=== PATIENT | female | born 1965 | race Caucasian/White ===

== ENCOUNTER 2020-01-08 17:01 | Inpatient (IN) | payer MEDICAID, SELFPAY ==
[2020-01-08] VITALS (22 sets, daily range): BP systolic 140–258; BP diastolic 76–132; PULSE 59–109; RESP 14–20; TEMP 36.6–36.8; O2SAT 91–98; BMI 22.3; BMI 28.0
--- NOTE | 2020-01-08 17:21 | ECG_ITS ---
APPROVED REPORT Exam: Resting ECG HR:105 bpm ECG Measurements Heart Rate 105 AXES AZ 166 P 67 QRSd 92 QRS -22 QT 368 T 121 QTc 486 <Conclusion> Sinus tachycardia Left atrial abnormality. Poor R wave progression, previously noted Abnormal ECG Electronically signed by : Duke Montez, 01/13/2020 17:14:00
--- NOTE | 2020-01-08 17:38 | XR_ITS ---
PROCEDURE: XR CHEST PORTABLE CLINICAL HISTORY: chest pain COMPARISON: XR CHEST 2V from 06/02/2019 XR CHEST PORTABLE from 07/09/2019 FINDINGS: There is cardiomegaly with mild pulmonary venous congestion consistent with mild CHF. There is a stable calcified nodule in the right upper lobe. In addition there is a nodular opacity in the right upper lobe laterally overlying the 4th rib nonspecific but stable since 06/02/2019. No acute bony abnormalities. IMPRESSION: Mild CHF. No change right upper lobe nodule Dictated by: Keenan Peterson MD 01/08/2020 22:38 Electronically signed by Keenan Peterson MD in [place] 01/08/2020 22:38
[2020-01-08 17:45] LABS: Basophils # 0.1 K/mm3 (0-0.2); Basophils % 0.6 % (0.1-2.0); Eosinophils # 0.1 K/mm3 (0.0-0.4); Eosinophils % 1.7 % (0.1-12.0); Hematocrit 38.2 % (37.0-47.0); Hemoglobin 12.4 g/dL (12.2-16.2); Lymphocytes # 1.2 K/mm3 (0.7-4.5); Lymphocytes % 15.7 % (10-50); Mean Corpuscular HGB Conc 32.5 g/dL (31.8-35.4); Mean Corpuscular Hemoglobin 27.6 pg (27.0-31.2); Mean Corpuscular Volume 84.9 fl (81-99); Mean Platelet Volume 8.2 fl (7.4-10.4); Monocytes # 0.4 K/mm3 (0.1-1.0); Monocytes % 5.6 % (1.7-9.3); Neutrophils # 5.9 K/mm3 (1.8-7.8); Neutrophils % 76.4 % (37.0-80.0); Platelet Count 238 K/mm3 (142-424); Red Cell Distribution Width 18.3 % (11.5-17.5); White Blood Count 7.7 K/mm3 (4.8-10.8)
[2020-01-08 17:47] LABS: Chloride 110 mmol/L (98-107); Potassium 3.8 mmoL/L (3.5-5.1); Sodium 138 mmol/L (136-145)
[2020-01-08 17:50] LABS: Albumin Level 3.8 g/dl (3.5-5.0); Alkaline Phosphatase 156 U/L (38-126); Anion Gap 11.8 mEq/L (5-15); Bilirubin,Direct 0.6 mg/dl (0.0-0.4); Bilirubin,Indirect 0.5 mg/dL (0.0-0.9); Bilirubin,Total 1.1 mg/dl (0.2-1.3); Bilirubin,Unconjugated 0.5 mg/dL (0.0-1.1); Blood Urea Nitrogen 41 mg/dl (7-17); Carbon Dioxide 20 mmol/L (22.0-30.0); Creatinine Clearance Estimated 23 mL/min (50-200); Estimated Glomerular Filt Rate 19 ml/min (>60); GFR (African American) 23 ML/MIN (>60); Glucose 130 mg/dl (74-100); Total Protein,Serum 7.7 g/dl (6.3-8.2)
[2020-01-08 17:51] LABS: Alanine Aminotransferase 32 U/L (12-78); Aspartate Amino Transferase 36 U/L (14-36)
--- NOTE | 2020-01-08 17:55 | PC.NURSE ---
notified ER of BP readings
[2020-01-08 18:02] LABS: Troponin I 0.07 ng/ml (0.00-0.034)
--- NOTE | 2020-01-08 19:12 | PC.NURSE ---
shift change report given to phyllis mijares and andrern
--- NOTE | 2020-01-08 19:15 | PC.NURSE ---
Nitro gtt increased from 5mcg/min to 10 mcg/min
--- NOTE | 2020-01-08 19:32 | PC.NURSE ---
nitro drip increased from 10mcg/min to 20 mcg/min
--- NOTE | 2020-01-08 19:49 | HMH.EDGENADL ---
ED Disposition Clinical Impression: Hypertensive urgency, malignant Disposition: Admitted as Observation Condition on Discharge: Good Referrals: Provider,Referral, [Primary Care Provider] - - Critical Care Critical Care Time: No Attestation: On 01/08/20, the high probability of a clinically significant, sudden or life threatening deterioration of the following system(s) required my full and direct attention, intervention and personal management. The time I documented below is in addition to time spent performing reported procedures but includes the following listed in this critical care notation. Medical Decision Making - Medical Records Medical records reviewed: Yes: I reviewed the patient's medical records. - Norris Inquiry Pt receiving controlled substance: No Vital Signs: 01/08/20 17:03 01/08/20 17:30 01/08/20 17:33 Temperature 98.0 F Temperature Source Oral Pulse Rate [Right Radial] 109 H 98 H 95 H Respiratory Rate 20 20 20 Blood Pressure [Left Arm] 231/131 H 258/132 H 219/131 H Blood Pressure Mean [Left Arm] 164 174 160 Blood Pressure Source [Left Arm] Automatic Cuff Manual Cuff/ Auscultation Blood Pressure Position [Left Arm] Sitting Sitting Sitting 02 Sat by Pulse Oximetry 91 L 96 Oxygen Delivery Method Room Air Room Air 01/08/20 17:35 01/08/20 17:43 01/08/20 17:50 Temperature Temperature Source Pulse Rate [Right Radial] 94 H 93 H 93 H Respiratory Rate 20 20 20 Blood Pressure [Left Arm] 229/126 H 222/119 H 219/115 H Blood Pressure Mean [Left Arm] 160 153 149 Blood Pressure Source [Left Arm] Automatic Cuff Automatic Cuff Blood Pressure Position [Left Arm] Sitting Sitting Sitting 02 Sat by Pulse Oximetry 98 98 98 Oxygen Delivery Method Room Air Room Air Room Air 01/08/20 17:53 01/08/20 18:10 01/08/20 18:14 Temperature Temperature Source Pulse Rate [Right Radial] 95 H 86 84 Respiratory Rate 20 20 20 Blood Pressure [Left Arm] 230/105 H 199/102 H 200/100 H Blood Pressure Mean [Left Arm] 146 134 133 Blood Pressure Source [Left Arm] Manual Cuff/ Auscultation Automatic Cuff Manual Cuff/ Auscultation Blood Pressure Position [Left Arm] Sitting Sitting Sitting 02 Sat by Pulse Oximetry 97 96 97 Oxygen Delivery Method Room Air Room Air 01/08/20 18:52 01/08/20 19:04 01/08/20 19:48 Temperature Temperature Source Pulse Rate [Right Radial] 77 78 81 Respiratory Rate 20 20 Blood Pressure [Left Arm] 204/110 H 209/112 H 219/116 H Blood Pressure Mean [Left Arm] 141 144 150 Blood Pressure Source [Left Arm] Automatic Cuff Automatic Cuff Blood Pressure Position [Left Arm] Sitting Sitting Supine 02 Sat by Pulse Oximetry 95 96 96 Oxygen Delivery Method Room Air Room Air - Lab Data Lab results reviewed: Yes: I reviewed the patient's lab results. Lab Results 01/08/20 17:25: WBC 7.7, RBC 4.50, Hgb 12.4, Hct 38.2, MCV 84.9, MCH 27.6, MCHC 32.5, RDW 18.3 H, Plt Count 238, MPV 8.2, Neut % (Auto) 76.4, Lymph % (Auto) 15.7, [place] % (Auto) 5.6, Eos % (Auto) 1.7, Baso % (Auto) 0.6, Neut # (Auto) 5.9, Lymph # (Auto) 1.2, [place] # (Auto) 0.4, Eos # (Auto) 0.1, Baso # (Auto) 0.1 01/08/20 17:25: Sodium 138, Potassium 3.8, Chloride 110 H, Carbon Dioxide 20 L, Anion Gap 11.8, BUN 41 H, Creatinine 2.60 H, Estimated Creat Clear 23, Estimated GFR 19 L*, Est GFR ( Amer) 23 L, Glucose 130 H, Calcium 9.0, Total Bilirubin 1.1, Direct Bilirubin 0.6 H, Conjugated Bilirubin 0.0, Indirect Bilirubin 0.5, Unconjugated Bilirubin 0.5, AST 36, ALT 32, Alkaline Phosphatase 156 H, Troponin I 0.07 H, Total Protein 7.7, Albumin 3.8 Result diagrams: 01/08/20 17:25 01/08/20 17:25 Orders (Tests/Meds): ED MEDICATIONS Generic Name Dose Route Start Last Admin Trade Name Freq PRN Reason Stop Dose Admin Nitroglycerin/Dextrose 250 mls @ 1.5 mls/hr 01/08/20 19:00 01/08/20 18:56 Nitroglycerin 50mg/250ml D5w IV 02/07/20 18:59 5 mcg/min .Q24H KATHY 1.5 mls/hr Administration Prot
--- NOTE | 2020-01-08 19:49 | PC.NURSE ---
Nitro drip increased to 25 mcg/min
--- NOTE | 2020-01-08 20:18 | PC.NURSE ---
Nitro gtt increased to 30 mcg/min
--- NOTE | 2020-01-08 20:36 | PC.NURSE ---
report called to OLVIN Huizar
--- NOTE | 2020-01-08 20:51 | PC.NURSE ---
patient to floor via stretcher.
[2020-01-08 21:31] LABS: Troponin I 0.06 ng/ml (0.00-0.034)
[2020-01-08 23:46] LABS: Troponin I 0.05 ng/ml (0.00-0.034)
[2020-01-09] VITALS (25 sets, daily range): BP systolic 120–186; BP diastolic 69–103; PULSE 50–81; RESP 16–20; TEMP 36.4–36.7; O2SAT 90–95; BMI 28.4
--- NOTE | 2020-01-09 02:18 | PC.NURSE ---
Medication Reconciliation not done. Pt does not know names of medications that she is on. No external medication history available.
--- NOTE | 2020-01-09 03:19 | PC.NURSE ---
Pt arrived to floor on Nitro Gtt infusing @ 35 mcg/min. New IV placed in (R) hand #20 for additional medications and due to pt currently in Stepdown. She c/o headache upon arrival. notified. New orders: Tylenol 650 mg PO Q6 prn. She has slept well this shift. Woke this AM c/o headache. Tylenol admin. She is currently NSR on telemetry. VSS at this time. Nitro gtt titrated per protocol and are as follows: Nitro GTT 2051 - 35 mcg/min 2117 - 40 mcg/min 2145 - 30 mcg/min 2240 - 20 mcg/min 2345 - 15 mcg/min 0030 - 10 mcg/min 0105 - 5 mcg/min 0245 - 10 mcg/min 0305 - 20 mcg/min
--- NOTE | 2020-01-09 04:03 | PC.NURSE ---
Pt was assisted per staff to BR. During ambulation, pt noted to become exerted and will need to wear NC during ambulation at this time. Pt remains on 2L O2 NC. RA 84% after ambulation.
[2020-01-09 05:46] LABS: Basophils # 0.1 K/mm3 (0-0.2); Eosinophils # 0.1 K/mm3 (0.0-0.4); Eosinophils % 1.9 % (0.1-12.0); Hematocrit 34.9 % (37.0-47.0); Hemoglobin 11.3 g/dL (12.2-16.2); Lymphocytes # 0.8 K/mm3 (0.7-4.5); Lymphocytes % 12.8 % (10-50); Mean Corpuscular HGB Conc 32.4 g/dL (31.8-35.4); Mean Corpuscular Hemoglobin 27.8 pg (27.0-31.2); Mean Corpuscular Volume 85.7 fl (81-99); Mean Platelet Volume 8.2 fl (7.4-10.4); Monocytes # 0.5 K/mm3 (0.1-1.0); Monocytes % 7.5 % (1.7-9.3); Neutrophils % 76.7 % (37.0-80.0); Platelet Count 228 K/mm3 (142-424); Red Blood Count 4.07 M/mm3 (4.20-5.40); Red Cell Distribution Width 18.1 % (11.5-17.5); White Blood Count 6.5 K/mm3 (4.8-10.8)
[2020-01-09 05:59] LABS: Alanine Aminotransferase 23 U/L (12-78); Albumin Level 3.1 g/dl (3.5-5.0); Albumin/Globulin Ratio 0.9 (1.1-1.8); Alkaline Phosphatase 136 U/L (38-126); Anion Gap 11.6 mEq/L (5-15); Aspartate Amino Transferase 30 U/L (14-36); Blood Urea Nitrogen 39 mg/dl (7-17); Calcium 9.1 mg/dl (8.4-10.2); Carbon Dioxide 23 mmol/L (22.0-30.0); Chloride 107 mmol/L (98-107); Creatinine Clearance Estimated 30 mL/min (50-200); Estimated Glomerular Filt Rate 19 ml/min (>60); GFR (African American) 23 ML/MIN (>60); Globulin 3.5 g/dL (1.3-3.2); Glucose 132 mg/dl (74-100); Potassium 3.6 mmoL/L (3.5-5.1); Sodium 138 mmol/L (136-145); Total Protein,Serum 6.6 g/dl (6.3-8.2)
--- NOTE | 2020-01-09 08:20 | HMH.HP ---
*Admission Date: 01/08/20 *Chief complaint: Headache with malignant hypertension *History of present illness: 54-year-old white female with no primary care physician-recently moved from [place] to [place], [place] to live with her daughter. She was admitted to [facility] twice over the past couple of months with malignant hypertension and was discharged from there on a regimen of triple blood pressure medication including clonidine 0.3 3 times daily. She is unsure of the other medications. She ran out of her hypertensive medicines a couple of days ago, and has progressively felt worse with headaches, shortness of air and lethargy. Came to the emergency department on the day of admission when she was found have significant blood pressure elevation. Placed on nitro drip, managed in the ER until blood pressure improved and transition to second floor on nitro drip. Patient was also given clonidine in the ER for probable rebound hypertension after abrupt cessation of clonidine. Patient this morning feels much better. Blood pressure is now in the 140-150 range systolic [facility] History I have reviewed the patient's past medical history: Yes Medical History: Reports:: Congestive Heart Failure, Hypertension Denies:: Cancer, Diabetes Mellitus Type 1, Diabetes Mellitus Type 2, MRSA *Have you ever received a pneumonia vaccine?: No *Have you received a flu vaccine this season?: Yes Other Surgeries: Yes: Colonoscopy, Amputation: No - *Social History Smoking Status: Former smoker Tobacco Type: cigarettes # Packs/Day (cigarettes): 1 Alcohol Intake: never *Occupational Status:: unemployed *Travel in the last 8 weeks: None Family Hx:: Hypertension, Kidney Disease Review of Systems - Review of Systems Review of systems:: pertinent systems reviewed and negative unless documented below Meds Home Medications Medication Instructions Recorded Confirmed Type lisinopriL [Lisinopril 10mg Tab] 10 mg PO DAILY 06/02/19 06/02/19 History Allergies Allergy/AdvReac Type Severity Reaction Status Date / Time No Known Allergies Allergy Verified 06/02/19 08:21 Exam Vital signs and Labs for Last 24 Hours: Temp Pulse Resp BP Pulse Ox 97.7 F 55 L 16 151/79 H 90 L 01/09/20 04:00 01/09/20 07:00 01/09/20 07:00 01/09/20 07:00 01/09/20 07:00 Laboratory Results - last 24 hr 01/08/20 17:25: WBC 7.7, RBC 4.50, Hgb 12.4, Hct 38.2, MCV 84.9, MCH 27.6, MCHC 32.5, RDW 18.3 H, Plt Count 238, MPV 8.2, Neut % (Auto) 76.4, Lymph % (Auto) 15.7, [place] % (Auto) 5.6, Eos % (Auto) 1.7, Baso % (Auto) 0.6, Neut # (Auto) 5.9, Lymph # (Auto) 1.2, [place] # (Auto) 0.4, Eos # (Auto) 0.1, Baso # (Auto) 0.1 01/08/20 17:25: Sodium 138, Potassium 3.8, Chloride 110 H, Carbon Dioxide 20 L, Anion Gap 11.8, BUN 41 H, Creatinine 2.60 H, Estimated Creat Clear 23, Estimated GFR 19 L*, Est GFR ( Amer) 23 L, Glucose 130 H, Calcium 9.0, Total Bilirubin 1.1, Direct Bilirubin 0.6 H, Conjugated Bilirubin 0.0, Indirect Bilirubin 0.5, Unconjugated Bilirubin 0.5, AST 36, ALT 32, Alkaline Phosphatase 156 H, Troponin I 0.07 H, Total Protein 7.7, Albumin 3.8 01/08/20 20:46: Troponin I 0.06 H 01/08/20 23:17: Troponin I 0.05 H 01/09/20 05:20: WBC 6.5, RBC 4.07 L, Hgb 11.3 L, Hct 34.9 L, MCV 85.7, MCH 27.8, MCHC 32.4, RDW 18.1 H, Plt Count 228, MPV 8.2, Neut % (Auto) 76.7, Lymph % (Auto) 12.8, [place] % (Auto) 7.5, Eos % (Auto) 1.9, Baso % (Auto) 1.0, Neut # (Auto) 5.0, Lymph # (Auto) 0.8, [place] # (Auto) 0.5, Eos # (Auto) 0.1, Baso # (Auto) 0.1 01/09/20 05:20: Sodium 138, Potassium 3.6, Chloride 107, Carbon Dioxide 23, Anion Gap 11.6, BUN 39 H, Creatinine 2.60 H, Estimated Creat Clear 30, Estimated GFR 19 L*, Est GFR ( Amer) 23 L, Glucose 132 H, Calcium 9.1, Total Bilirubin 1.0, AST 30, ALT 23 D, Alkaline Phosphatase 136 H, Total Protein 6.6, Albumin 3.1 L D, Globulin 3.5 H, Albumin/Globulin Ratio 0.9 L I & O for Last 24 hours: Intake & Output
--- NOTE | 2020-01-09 11:41 | HMH.PHACONS ---
- Pharmacy Consult Date: 01/09/20 Time: 11:41 Referring provider: DR. PRICE Reason for Consult:: MED REC Allergies and ADEs:: Allergies Allergy/AdvReac Type Severity Reaction Status Date / Time No Known Allergies Allergy Verified 06/02/19 08:21 Home Medications:: Home Medications Medication Instructions Recorded Confirmed Type Amlodipine Besylate [Amlodipine 5 mg PO DAILY 01/09/20 01/09/20 History 5mg tab] Losartan Potassium 100 mg PO DAILY 01/09/20 01/09/20 History cloNIDine HCL [cloNIDine 0.2mg 0.2 mg PO TID 01/09/20 01/09/20 History Tablet] Height: 1.63 m Weight: 75.551 kg Laboratory Results:: Laboratory Results - last 24 hr 01/08/20 17:25: WBC 7.7, RBC 4.50, Hgb 12.4, Hct 38.2, MCV 84.9, MCH 27.6, MCHC 32.5, RDW 18.3 H, Plt Count 238, MPV 8.2, Neut % (Auto) 76.4, Lymph % (Auto) 15.7, [place] % (Auto) 5.6, Eos % (Auto) 1.7, Baso % (Auto) 0.6, Neut # (Auto) 5.9, Lymph # (Auto) 1.2, [place] # (Auto) 0.4, Eos # (Auto) 0.1, Baso # (Auto) 0.1 01/08/20 17:25: Sodium 138, Potassium 3.8, Chloride 110 H, Carbon Dioxide 20 L, Anion Gap 11.8, BUN 41 H, Creatinine 2.60 H, Estimated Creat Clear 23, Estimated GFR 19 L*, Est GFR ( Amer) 23 L, Glucose 130 H, Calcium 9.0, Total Bilirubin 1.1, Direct Bilirubin 0.6 H, Conjugated Bilirubin 0.0, Indirect Bilirubin 0.5, Unconjugated Bilirubin 0.5, AST 36, ALT 32, Alkaline Phosphatase 156 H, Troponin I 0.07 H, Total Protein 7.7, Albumin 3.8 01/08/20 20:46: Troponin I 0.06 H 01/08/20 23:17: Troponin I 0.05 H 01/09/20 05:20: WBC 6.5, RBC 4.07 L, Hgb 11.3 L, Hct 34.9 L, MCV 85.7, MCH 27.8, MCHC 32.4, RDW 18.1 H, Plt Count 228, MPV 8.2, Neut % (Auto) 76.7, Lymph % (Auto) 12.8, [place] % (Auto) 7.5, Eos % (Auto) 1.9, Baso % (Auto) 1.0, Neut # (Auto) 5.0, Lymph # (Auto) 0.8, [place] # (Auto) 0.5, Eos # (Auto) 0.1, Baso # (Auto) 0.1 01/09/20 05:20: Sodium 138, Potassium 3.6, Chloride 107, Carbon Dioxide 23, Anion Gap 11.6, BUN 39 H, Creatinine 2.60 H, Estimated Creat Clear 30, Estimated GFR 19 L*, Est GFR ( Amer) 23 L, Glucose 132 H, Calcium 9.1, Total Bilirubin 1.0, AST 30, ALT 23 D, Alkaline Phosphatase 136 H, Total Protein 6.6, Albumin 3.1 L D, Globulin 3.5 H, Albumin/Globulin Ratio 0.9 L Medical History: Reports:: Congestive Heart Failure, Hypertension Denies:: Cancer, Diabetes Mellitus Type 1, Diabetes Mellitus Type 2, MRSA Assessment and Plan (1) Hypertensive urgency, malignant Current visit: Yes Status: Acute Category: Medical Code(s): I16.0 - Hypertensive urgency (2) Acute kidney injury Current visit: No Status: Acute Category: Medical Code(s): N17.9 - Acute kidney failure, unspecified (3) Chronic kidney disease Current visit: No Status: Acute Category: Medical Code(s): N18.9 - Chronic kidney disease, unspecified (4) Congestive heart failure Current visit: No Status: Acute Category: Medical Code(s): I50.9 - Heart failure, unspecified - Assessment and plan all Dx Assessment and Plan for all problems:: CALLED [facility] FOR MED LIST. PATIENT HAD RECEIVED SCRIPTS FOR THE FOLLOW MEDS IN [place] BY NEVER FILLED FROM [facility] IN [place]. ASPIRIN 81 MG DAILY ATORVASTATIN 20 MG-2 TABS AT BEDTIME BUMETADINE 1 MG DAILY X14 DAYS CARVEDILOL 25 MG BID HYDRALAZINE 50 MG TID ISOSORBIDE MONONITRATE 60 MG DAILY
--- NOTE | 2020-01-09 11:46 | P.CONPHA_ITS ---
[facility] Pharmacy VTE Monitoring - Patient Demographics Admission date: 01/09/20 Report Date: 01/09/20 Time: 11:46 Allergies/Adverse Reactions: Patient Allergies No Known Allergies Allergy (Verified 06/02/19 08:21) Height: 1.63 m Weight: 75.551 kg Patient Problems: Current Active Problems Hypertensive urgency, malignant (Acute) - VTE Risk Labs: VTE Related Lab Results Hgb 11.3 g/dL (12.2-16.2) L 01/09/20 05:20 Hct 34.9 % (37.0-47.0) L 01/09/20 05:20 Plt Count 228 K/mm3 (142-424) 01/09/20 05:20 BUN 39 mg/dl (7-17) H 01/09/20 05:20 Creatinine 2.60 mg/dl (0.52-1.04) H 01/09/20 05:20 Estimated Creat Clear 30 mL/min (50-200) 01/09/20 05:20 VTE Risk Level: Low Risk - Prophylaxis Types of VTE Prophylaxis: TEDS Knee High (DREW HOSE ORDER PLACED)
--- NOTE | 2020-01-09 15:02 | PC.NURSE ---
1215- Nitro gtt titrated down to 20mcg BP142/79 1230- Nitro gtt titrated down to 15mcg BP 157/84 1300- Nitro gtt titrated down to 10mcg BP 147/80 1330- Nitro gtt titreated to off BP 135/78
--- NOTE | 2020-01-09 15:47 | PC.NURSE ---
Patient weaned from nitro gtt this shift, pt remains on 2LNC, she does get very soa with exertion, lung sounds reveal scattered wheezes, abd soft and nontender, active bowel sounds in all quads, perrla, alert and oriented x4, vss, will continue to monitor.
--- NOTE | 2020-01-09 21:16 | PC.NURSE ---
Pt c/o soa after ambulating to bathroom this evening. O2 desat upper 80s on 2L NC was noted. She recovered effectively after increasing O2 to 3L temporarily. Pt stated that she has an albuterol inhaler at home. notified. New orders received. Xopenex 0.63 mg IH TID.
[2020-01-10] VITALS (8 sets, daily range): BP systolic 134–160; BP diastolic 77–89; PULSE 50–558; RESP 18–20; TEMP 36.4–36.6; O2SAT 92–96; BMI 28.8
[2020-01-10 06:15] LABS: Anion Gap 13.3 mEq/L (5-15); Blood Urea Nitrogen 47 mg/dl (7-17); Calcium 9.2 mg/dl (8.4-10.2); Carbon Dioxide 25 mmol/L (22.0-30.0); Chloride 104 mmol/L (98-107); Creatinine Clearance Estimated 26 mL/min (50-200); Estimated Glomerular Filt Rate 16 ml/min (>60); GFR (African American) 20 ML/MIN (>60); Glucose 130 mg/dl (74-100); Potassium 4.3 mmoL/L (3.5-5.1); Sodium 138 mmol/L (136-145)
--- NOTE | 2020-01-10 08:22 | HMH.DCSUM ---
General - General Admission date:: 01/08/20 Discharge date: 01/10/20 HPI HPI: 54-year-old white female with no primary care physician-recently moved from [place] to [place], [place] to live with her daughter. She was admitted to [facility] twice over the past couple of months with malignant hypertension and was discharged from there on a regimen of triple blood pressure medication including clonidine 0.3 3 times daily. She is unsure of the other medications. She ran out of her hypertensive medicines a couple of days ago, and has progressively felt worse with headaches, shortness of air and lethargy. Came to the emergency department on the day of admission when she was found have significant blood pressure elevation. Placed on nitro drip, managed in the ER until blood pressure improved and transition to second floor on nitro drip. Patient was also given clonidine in the ER for probable rebound hypertension after abrupt cessation of clonidine. Patient this morning feels much better. Blood pressure is now in the 140-150 range systolic Hospital Course Hospital Course: Patient was admitted and her reported antihypertensive medicines were restarted and over the next 24 hours her blood pressure became much more controlled in a manageable range. She was able to be weaned off her nitro drip after 8 hours in the hospital. Further review of her history reveals that she is been in [place] for about a year, has been hospitalized 2 or 3 times in [place] but because of a variety of circumstances is not able to continue ongoing blood pressure regimen. She has not been able to find a primary physician even though she has [employer] Medicare insurance for some reason. Of note she also has told us throughout the last couple of days that she has COPD and has been on oxygen in the past. She has required oxygen the last 24 hours, especially when she gets up and moves around. She only takes albuterol rescue inhalers at home. Overnight she is done well. Eating well, blood pressure is been very acceptable. This morning she is medically ready for discharge with oxygen, and we will institute a follow-up in our office for this week pending her possibly finding a physician closer to her home. We will send medications to her local pharmacy and also institute home oxygen therapy and re-prescribe her rescue inhaler as well as combination long-acting beta agonist/long-acting muscarinic antagonist inhaler at her pharmacy which is appropriate for her baseline COPD treatment. In regards to patient's murmur, she has been told before she has a murmur and thinks she might of had echocardiograms but does not recall any other work-up or diagnosis. She is never had cardiac surgery. Record request and records are pending. Also, in regards to her chronic kidney disease, creatinine is 3 this morning, up from 2.6 but this is fairly negligible given the creatinine logarithmic scale. Again I do not have records of baseline creatinine. Urine output is normal, patient has no edema or signs of worsening kidney disease and this may be a transient response to better blood pressure control and the angiotensin receptor jamel. She will need labs for close outpatient follow-up and we will do these in our office on Saturday. Objective Vital signs: Temp Pulse Resp BP Pulse Ox 97.9 F 74 18 160/83 H 94 L 01/10/20 08:14 01/10/20 08:20 01/10/20 08:20 01/10/20 08:14 01/10/20 08:20 Narrative: Patient is alert, pleasant, wearing 2 L nasal cannula with O2 saturations in the 96% range however off oxygen she goes down to the 88% range. Lungs have good air movement. Minimal rhonchi but clear with a deep breath. Heart rate regular with 3/6 holosystolic murmur. No carotid radiation. ENT exam clear. Neurologically intact. Abdomen soft, no skin rash. Results Labs on day of discharge: Labs from last 24 hours 01/10/20
== END 2020-01-10 11:24 | disposition home or self-care (01) | DRG 305 ==
LOC: ER 19:53 → 2ND 21:03
PROVIDERS: Admitting Provider Internal Medicine Adolescent Medicine; Emergency Provider Family Medicine; Visit Provider Internal Medicine Adolescent Medicine
DX: I16.0 Hypertensive urgency (principal); N17.9 Acute kidney failure, unspecified; I13.0 Hypertensive heart and chronic kidney disease with heart failure and stage 1 through stage 4 chronic kidney disease, or unspecified chronic kidney disease; N18.9 Chronic kidney disease, unspecified; I50.9 Heart failure, unspecified; Z87.891 Personal history of nicotine dependence; Z79.899 Other long term (current) drug therapy
CPT/HCPCS: 36415; 71045; 80048; 80053; 80076; 84484; 85025; 93005; 94640; 94761; 96365; 96366; 96375; 96376; 99285

== ENCOUNTER → 2020-01-12 16:13 | Outpatient (CLI) | payer MEDICAID, SELFPAY ==
[2020-01-12 17:11] LABS: Hemoglobin A1C 5.4 % (4.0-6.0)
[2020-01-12 18:11] LABS: Chloride 109 mmol/L (98-107); Sodium 140 mmol/L (136-145)
[2020-01-12 18:12] LABS: Potassium 3.7 mmoL/L (3.5-5.1)
[2020-01-12 18:14] LABS: Alanine Aminotransferase 24 U/L (12-78); Albumin Level 3.6 g/dl (3.5-5.0); Albumin/Globulin Ratio 0.9 (1.1-1.8); Alkaline Phosphatase 174 U/L (38-126); Anion Gap 9.7 mEq/L (5-15); Aspartate Amino Transferase 30 U/L (14-36); Blood Urea Nitrogen 27 mg/dl (7-17); Carbon Dioxide 25 mmol/L (22.0-30.0); Estimated Glomerular Filt Rate 21 ml/min (>60); GFR (African American) 25 ML/MIN (>60); Globulin 3.8 g/dL (1.3-3.2); Total Protein,Serum 7.4 g/dl (6.3-8.2)
[2020-01-12 18:15] LABS: Calcium 8.9 mg/dl (8.4-10.2); Glucose 81 mg/dl (74-100)
== END ==
PROVIDERS: Visit Provider Nurse Practitioner Family
DX: N18.4 Chronic kidney disease, stage 4 (severe) (principal); R73.9 Hyperglycemia, unspecified
CPT/HCPCS: 36415; 80053; 83036

== ENCOUNTER 2020-03-20 11:16 | Inpatient (IN) | payer MEDICAID, SELFPAY ==
[2020-03-20] VITALS (46 sets, daily range): BP systolic 118–230; BP diastolic 66–126; PULSE 71–119; RESP 16–28; TEMP 36.6–37.2; O2SAT 80–100; BMI 24.9; BMI 27.1
--- NOTE | 2020-03-20 11:21 | XR_ITS ---
PROCEDURE: XR CHEST PORTABLE Referring Doctor: Carlos Campbell Patient Age:54Y CLINICAL HISTORY: SOA COPD. Dyspnea worse past few days. Nonsmoker COMPARISON: CR XR CHEST 2V from 06/02/2019 CR XR CHEST PORTABLE from 07/09/2019 CR XR CHEST PORTABLE from 01/08/2020 FINDINGS: AP portable upright chest performed today Comparison to 01/08/2020 CXR bibasilar airspace disease now evident with likely small bilateral pleural effusions left greater than right. This a change since December CXR. Or the airspace disease at right base is somewhat linear in there may be an element of atelectasis but I would be suspect of a modest bibasilar infiltrate along with atelectasis with given overall a pattern. Suggestion of slight slight additional vascular engorgement, suspect for mild CHF. Mild cardiomegaly noted but heart size is decreased and less pronounced today than on previous studies. Stable lung nodule at the right upper lobe compatible with again ring alum appeared 11 mm size for the most prominent density here.. Tortuous ectatic aorta with dilated aortic knob measuring up to 5.5 cm on plain film which may reflect developing aneurysmal dilatation aortic knob-however this appears similar to previous CXR studies. No appreciable change Chest wall unremarkable IMPRESSION: Bibasilar airspace disease. Small bilateral pleural effusions. 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
--- NOTE | 2020-03-20 11:24 | HMH.EDGENADL ---
ED Disposition Clinical Impression: Acute exacerbation of chronic obstructive airways disease, Acute respiratory failure with hypoxia, Hypertensive emergency Congestive heart failure Qualifiers: Heart failure type: systolic Heart failure chronicity: acute on chronic Qualified Code(s): I50.23 - Acute on chronic systolic (congestive) heart failure Disposition: Admitted As Inpatient Condition on Discharge: Serious - Critical Care Critical Care Time: Yes Attestation: On , the high probability of a clinically significant, sudden or life threatening deterioration of the following system(s) required my full and direct attention, intervention and personal management. The time I documented below is in addition to time spent performing reported procedures but includes the following listed in this critical care notation. Total Critical Care Time: 40 Vital system(s) involved:: Circulatory Failure, Respiratory Failure My critical care processes included: Assessment & monitoring of V/S, Initial and Re-exams, Data Review/Interpretation, Coordinating Care, Medication Orders and management, Documentation Medical Decision Making - Medical Records Medical records reviewed: Yes: I reviewed the patient's medical records. MR Comment: Reviewed recent admission - [facility] Inquiry Pt receiving controlled substance: No Vital Signs: 03/20/20 11:16 03/20/20 11:46 03/20/20 12:16 Temperature 98 F Temperature Source Oral Pulse Rate [Right] 119 H 110 H 104 H Respiratory Rate 26 H 25 H 22 Blood Pressure [Right Arm] 230/126 H 201/121 H 221/126 H Blood Pressure Mean [Right Arm] 160 147 157 Blood Pressure Source [Right Arm] Blood Pressure Position [Right Arm] 02 Sat by Pulse Oximetry 87 L 91 L 88 L Oxygen Delivery Method Nasal Cannula Nasal Cannula Nasal Cannula Oxygen Flow Rate (LPM) 2 2 2 03/20/20 12:30 03/20/20 12:40 03/20/20 12:53 Temperature Temperature Source Pulse Rate [Right] 106 H 101 H 102 H Respiratory Rate 17 28 H 23 Blood Pressure [Right Arm] 204/119 H 196/110 H 183/107 H Blood Pressure Mean [Right Arm] 147 138 132 Blood Pressure Source [Right Arm] Blood Pressure Position [Right Arm] 02 Sat by Pulse Oximetry 94 L 93 L 93 L Oxygen Delivery Method Nasal Cannula Nasal Cannula Nasal Cannula Oxygen Flow Rate (LPM) 2 2 2 03/20/20 13:00 03/20/20 13:05 03/20/20 13:10 Temperature Temperature Source Pulse Rate [Right] 100 H 104 H 109 H Respiratory Rate 21 17 23 Blood Pressure [Right Arm] 182/107 H 168/97 H 178/98 H Blood Pressure Mean [Right Arm] 132 120 124 Blood Pressure Source [Right Arm] Blood Pressure Position [Right Arm] 02 Sat by Pulse Oximetry 95 92 L 93 L Oxygen Delivery Method Nasal Cannula Nasal Cannula Nasal Cannula Oxygen Flow Rate (LPM) 2 2 03/20/20 13:16 03/20/20 14:13 03/20/20 14:27 Temperature Temperature Source Pulse Rate [Right] 100 H 99 H 95 H Respiratory Rate 21 16 22 Blood Pressure [Right Arm] 177/106 H 173/99 H 177/106 H Blood Pressure Mean [Right Arm] 129 123 129 Blood Pressure Source [Right Arm] Automatic Cuff Blood Pressure Position [Right Arm] Sitting 02 Sat by Pulse Oximetry 94 L 99 94 L Oxygen Delivery Method Nasal Cannula Room Air Oxygen Flow Rate (LPM) 2 03/20/20 14:45 03/20/20 15:00 03/20/20 15:15 Temperature Temperature Source Pulse Rate [Right] 95 H 97 H 97 H Respiratory Rate 23 24 22 Blood Pressure [Right Arm] 181/104 H 182/109 H 178/100 H Blood Pressure Mean [Right Arm] 129 133 126 Blood Pressure Source [Right Arm] Blood Pressure Position [Right Arm] 02 Sat by Pulse Oximetry 94 L 94 L 94 L Oxygen Delivery Method Nasal Cannula Nasal Cannula Nasal Cannula Oxygen Flow Rate (LPM) 2 2 2 03/20/20 15:30 Temperature Temperature Source Pulse Rate [Right] 92 H Respiratory Rate 22 Blood Pressure [Right Arm] 174/97 H Blood Pressure Mean [Right Arm] 122 Blood Pressure Source [Right Arm] Blood Pressure Position [Right Arm]
--- NOTE | 2020-03-20 11:26 | ECG_ITS ---
APPROVED REPORT Exam: Resting ECG HR:124 bpm ECG Measurements Heart Rate 124 AXES UT 184 P 78 QRSd 80 QRS 59 QT 332 T 95 QTc 476 <Conclusion> Sinus tachycardia with premature supraventricular complexes Late r wave progresson, previously noted Abnormal ECG Electronically signed by : Duke Montez, 03/20/2020 17:05:35
[2020-03-20 11:41] LABS: ABG Base Excess -8.2 mmol/L (-2.4-2.3); ABG Oxygen Saturation 92 % (90-100); ABG PCO2 29.8 mmhg (35.0-45.0); ABG PH 7.37 mmol/L (7.35-7.45); ABG PO2 65.4 mmhg (80-100); ABG TCO2 17.9 mmhg (23-27)
[2020-03-20 11:42] LABS: Allen's Test Acceptable; Oxygen Room Air %; Source Right Radial
[2020-03-20 11:50] LABS: Basophils # 0.1 K/mm3 (0-0.2); Basophils % 0.8 % (0.1-2.0); Eosinophils # 0.2 K/mm3 (0.0-0.4); Eosinophils % 1.4 % (0.1-12.0); Hematocrit 33.3 % (37.0-47.0); Hemoglobin 11.5 g/dL (12.2-16.2); Lymphocytes # 1.1 K/mm3 (0.7-4.5); Lymphocytes % 10.8 % (10-50); Mean Corpuscular HGB Conc 34.4 g/dL (31.8-35.4); Mean Corpuscular Hemoglobin 27.1 pg (27.0-31.2); Mean Corpuscular Volume 78.6 fl (81-99); Mean Platelet Volume 6.9 fl (7.4-10.4); Monocytes # 0.4 K/mm3 (0.1-1.0); Monocytes % 3.7 % (1.7-9.3); Neutrophils # 8.5 K/mm3 (1.8-7.8); Neutrophils % 83.3 % (37.0-80.0); Platelet Count 216 K/mm3 (142-424); Red Blood Count 4.24 M/mm3 (4.20-5.40); White Blood Count 10.2 K/mm3 (4.8-10.8)
[2020-03-20 11:51] LABS: Chloride 109 mmol/L (98-107); Potassium 3.5 mmoL/L (3.5-5.1); Sodium 141 mmol/L (136-145)
[2020-03-20 11:54] LABS: Alanine Aminotransferase 21 U/L (12-78); Albumin Level 3.8 g/dl (3.5-5.0); Alkaline Phosphatase 152 U/L (38-126); Anion Gap 14.5 mEq/L (5-15); Aspartate Amino Transferase 31 U/L (14-36); Bilirubin,Total 1.1 mg/dl (0.2-1.3); Blood Urea Nitrogen 40 mg/dl (7-17); Carbon Dioxide 21 mmol/L (22.0-30.0); Creatinine Clearance Estimated 22 mL/min (50-200); Estimated Glomerular Filt Rate 16 ml/min (>60); GFR (African American) 19 ML/MIN (>60); Globulin 3.8 g/dL (1.3-3.2); Total Protein,Serum 7.6 g/dl (6.3-8.2)
[2020-03-20 11:55] LABS: Calcium 9.4 mg/dl (8.4-10.2); Glucose 123 mg/dl (74-100)
[2020-03-20 12:07] LABS: Troponin I 0.08 ng/ml (0.00-0.034)
[2020-03-20 12:24] LABS: NT Pro Brain Natriuretic Pep. 43600 pg/mL (0-125)
[2020-03-20 12:25] LABS: Coronavirus 19 IgG Antibody Negative (Negative); Coronavirus 19 IgM Antibody Negative (Negative)
--- NOTE | 2020-03-20 12:40 | PC.NURSE ---
DRIP INITIATED AT THIS TIME AT 5MC/MIN
--- NOTE | 2020-03-20 12:46 | PC.NURSE ---
DR. Tanner wilder
--- NOTE | 2020-03-20 12:52 | PC.NURSE ---
SPEAKING TO DR FRANCIS
--- NOTE | 2020-03-20 13:04 | PC.NURSE ---
NOTIFIED OF BP, STATED HE WISHED TO KEP HER DRIP ON 5
[2020-03-20 14:44] LABS: Troponin I 0.09 ng/ml (0.00-0.034)
--- NOTE | 2020-03-20 15:54 | PC.NURSE ---
Pt arrived to the floor at this time.
--- NOTE | 2020-03-20 16:30 | PC.NURSE ---
Addendum entered by Cristal Palomino RN 03/20/20 17:08: MCG/MIN NOT MG/HR Original Note: PATIENT ARRIVED TO UNIT FROM ED. PATIENT ON NITROGLYCERIN GTT AT 5MG/HR. INCREASED BLOOD PRESSURE GTT INCREASED TO 10MG/HR PER PROTOCOL. BLOOD PRESSURE CONTINUES TO RISE GTT INCREASED TO 15MG/HR, THEN AGAIN TO 20MG/HR. BP CURRENTLY 194/111. MD FRANCIS AT BEDSIDE AWARE OF BLOOD PRESSURE-PERFORMING ASSESSMENT.
--- NOTE | 2020-03-20 16:45 | PC.NURSE ---
PATIENTS BP 171/92 HR 93 NITROGLYCERIN GTT INCREASED TO 30MCG/MIN PER JASMIN Lynne RN
--- NOTE | 2020-03-20 16:55 | HMH.HP ---
*Admission Date: 03/20/20 *Chief complaint: High blood pressure, shortness of breath *History of present illness: 54-year-old white female with malignant hypertension is admitted from the emergency room. She has been off of her medications for 2 to 3 weeks she states. She has not been able to locate a primary care doctor. She was hospitalized in December at [facility] with a similar presentation. At that time her story was that she had moved from [place] to [facility] to live with her daughter. She apparently had been admitted to the [facility] several times with malignant hypertension. She was discharged from there on regimen of triple blood pressure medicines including clonidine 0.3 mg 3 times a day. Apparently she was also on amlodipine. At that hospitalization in December she was discharged on clonidine and amlodipine, but as stated has been off her medications. In December she was also on a nitroglycerin drip in order to bring her blood pressure under control. Prior ECHO: Conclusion 1. Moderate biatrial enlargement, dilated left ventricle, severely reduced left ventricular systolic function, visually estimated ejection fraction 30%, left ventricle is globally hypokinetic. Diastolic parameters are inconclusive. 2. Enlarged right ventricle with normal contractility. 3. Abnormal aortic valve with severe aortic insufficiency. 4. Abnormal mitral valve with severe mitral regurgitation 5. Abnormal tricuspid valve with severe tricuspid regurgitation, calculated right ventricular systolic pressure is 64 mmHg consistent with moderate elevation in right ventricular systolic pressure. 6. No significant pericardial effusion noted. Inferior vena cava is not well-visualized. [facility] History Medical History: Reports:: Congestive Heart Failure, Hypertension, Renal Insufficiency, Valvular Heart Disease Denies:: Cancer, Diabetes Mellitus Type 1, Diabetes Mellitus Type 2, Migraine (But headaches with her hypertension.), MRSA, Myocardial Infarction *Have you ever received a pneumonia vaccine?: No (She denies though it seems likely she would received at some point) *Have you received a flu vaccine this season?: No Other Medical History: Reports: Arthritis (Hands). Denies: Hypothyroidism Other Surgeries: Yes: Colonoscopy, Amputation: No - *Social History Last grade of school completed: High school graduate Smoking Status: Former smoker Tobacco Type: cigarettes # Packs/Day (cigarettes): 1 Alcohol Intake: never *Occupational Status:: unemployed (Did work at [employer], [place]) Household Members: children (Daughter 28 years old son 25 years old 3 grandchildren.) *Travel in the last 8 weeks: None Family Hx:: Cancer, Diabetes, Hypertension, Kidney Disease Comment: Father of COPD. Her mother is 67 years old. A brother has Crohn's disease. She had 4 sisters and 2 brothers. Review of Systems - Constitutional Reports fatigue, Denies anorexia, Denies body ache(s), Denies chills - Eyes Denies change in vision - ENT Denies throat swelling - *Cardiovascular Reports shortness of breath, Reports fast heart rate, Denies chest pain, Denies leg swelling, Denies fainting - *Respiratory Reports chest congestion, Reports shortness of breath - *Gastrointestinal Denies abdominal pain, Denies change in bowel habits - *Musculoskeletal Reports joint pain (Hands) - *Neurologic Reports headache(s), Denies abnormal walking - Hematologic/Lymphatic Denies easy bleeding - Allergic/Immunologic Denies GI upset with certain foods Meds Home Medications Medication Instructions Recorded Confirmed Type Albuterol Sulfate [Albuterol 8.5 gm IH Q6HP PRN #2 hfa.aer.[email or web address] 01/10/20 03/20/20 Rx Sulfate Hfa] Amlodipine Besylate [Norvasc 10mg 10 mg PO DAILY 03/20/20 03/20/20 History tablet] Irbesartan [Avapro 150mg 150 mg PO DAILY 03/20/20 03/20/20 History tablet] Tiotropium [place] [Spiri
--- NOTE | 2020-03-20 17:09 | PC.NURSE ---
PATIENTS BP 159/100 HR 84 PATIENTS NITROGLYCERIN GTT INCREASED TO 40MCG/MIN PER JASMIN Lynne RN
--- NOTE | 2020-03-20 17:14 | PC.NURSE ---
Spoke with Dr. Hart and he is ok with cardiology consult being in the AM.
--- NOTE | 2020-03-20 18:16 | PC.NURSE ---
PATIENT LYING IN BED SLEEPING. BP 151/85 PATIENT ON 40MCG/MIN NITROGLYCERIN GTT. PATIENT REMAINS ON 3LPM N/C 02 SAT 91%. SAFETY MEASURES ARE IN PLACE. PATIENT DOES NOT APPEAR TO BE IN ANY DISCOMFORT OR DISTRESS AT THIS TIME.
[2020-03-20 18:27] LABS: Troponin I 0.07 ng/ml (0.00-0.034)
--- NOTE | 2020-03-20 18:50 | PC.NURSE ---
BP 165/102 HR 83. NITROGLYCERIN GTT INCREASED TO 50MCG/MIN PER JASMIN Lynne RN.
[2020-03-21] VITALS (21 sets, daily range): BP systolic 130–180; BP diastolic 66–97; PULSE 60–86; RESP 16–24; TEMP 36.6–37; O2SAT 86–99; BMI 27.5; BMI 27.4
--- NOTE | 2020-03-21 | CA_ITS ---
APPROVED REPORT EXAM: Comprehensive 2D, Doppler, and color-flow Echocardiogram Steaming Cabinet Tender: Martita Elizabeth, RT(R) Ht: 5 ft 4 in Wt: 145lbs BSA: 1.71 BP: 178/98 mmHg Indications: malignant HTN, CP, COPD, SOB, ex smoker, murmur, palpitations, CHF, echo 06/02/19 EF 30% 2D Dimensions LVOT 1.47 cm (M/F) 1.5-2.5 M-Mode Dimensions RVDd 2.76 cm (0.9-2.6) LVDd 5.42 cm (3.5-5.7) LVDs 4.77 cm (3.5-5.7) IVSd 1.11 cm (0.6-1.1) PWd 1.43 cm (0.6-1.1) EF (Teich) 25.60% FS 12.00% EDV (Teich) 142.50 mL ESV (Teich) 106.00 mL LV Diastology E/A Ratio 1.96 Aortic Valve LVOT Max 137.00 (70-110 cm/s) LVOT VTI 28.24 cm Mitral Valve MV A Velocity 69.00 (40-130 cm/s) Left Ventricle Left atrium is moderately enlarged, left ventricle is normal size, moderate concentric left ventricular hypertrophy, visually estimated ejection fraction 50% with no regional wall motion abnormality, grade 2 diastolic dysfunction seen with tissue Doppler evidence of raise left atrial pressure. Right Ventricle Right atrium is moderately enlarged, right ventricle is mildly dilated with normal contractility. Aortic Valve Aortic valve is thickened and calcified without significant aortic stenosis, there is severe aortic insufficiency. Mitral Valve Mitral valve has mitral calcification, leaflets are minimally thickened, there is no mitral stenosis, there is mitral regurgitation present which is difficult to quantify this is likely in moderate to severe range. Tricuspid Valve Tricuspid valve leaflets are minimally thickened, there is moderate tricuspid regurgitation, calculated right ventricular systolic pressure is 63 mmHg, inferior vena cava is dilated without significant inspiratory collapse. Pulmonic Valve Pulmonic valve is poorly visualized. Great Vessels Aortic root is normal size. Pericardium Trivial pericardial effusion noted. Conclusion 1. Biatrial enlargement, normal left ventricular size, mild concentric left ventricular hypertrophy, visually estimated ejection fraction 50% with no regional wall motion abnormality, grade 2 diastolic dysfunction seen with tissue Doppler evidence of raise left atrial pressure. 2. Mildly enlarged right ventricle with normal contractility. 3. Thickened and calcified aortic valve without significant aortic stenosis, there is severe aortic insufficiency. 4. Abnormal mitral valve as described above, likely moderate to severe mitral regurgitation. 5. Moderate tricuspid regurgitation, calculated right ventricular systolic pressure 63 mmHg, inferior vena cava is dilated without significant inspiratory collapse. 6. Trivial pericardial effusion noted. Electronically signed by : Ryan Kamara, 03/21/2020 18:12:51
--- NOTE | 2020-03-21 05:23 | PC.NURSE ---
2044 nitro drip decreased to 25 mcg/min 2149 nitro drip turned off since that time pt systolic BP has sustained 130-140's, on 3L NC, sat sustain greater than 90% at rest, drops to high 70's on room air, becomes dyspneic on exertion
--- NOTE | 2020-03-21 06:19 | PC.NURSE ---
Ke DECKER NOTIFIED OF CONSULT.
--- NOTE | 2020-03-21 06:48 | PC.NURSE ---
AM BP reading taken after pt up ambulating to restroom and anxiety related to familly issues, pt calming, BP decreasing
[2020-03-21 06:53] LABS: Chloride 104 mmol/L (98-107); Sodium 136 mmol/L (136-145)
[2020-03-21 06:56] LABS: Blood Urea Nitrogen 54 mg/dl (7-17); Carbon Dioxide 23 mmol/L (22.0-30.0); Creatinine Clearance Estimated 21 mL/min (50-200); Estimated Glomerular Filt Rate 13 ml/min (>60); GFR (African American) 16 ML/MIN (>60)
[2020-03-21 06:57] LABS: Glucose 152 mg/dl (74-100)
--- NOTE | 2020-03-21 08:00 | HMH.PHAVTE ---
[facility] Pharmacy VTE Monitoring - Patient Demographics Admission date: 03/21/20 Report Date: 03/21/20 Time: 08:00 Allergies/Adverse Reactions: Patient Allergies No Known Allergies Allergy (Verified 06/02/19 08:21) Height: 1.63 m Weight: 73.057 kg Patient Problems: Current Active Problems Congestive heart failure (Chronic) Hypertensive emergency (Acute) Acute exacerbation of chronic obstructive airways disease (Acute) Acute respiratory failure with hypoxia (Acute) Malignant hypertension (Acute) Valvular heart disease (Acute) CHF due to valvular disease (Acute) Pleural effusion, left (Acute) - VTE Risk Labs: VTE Related Lab Results Hgb 11.5 g/dL (12.2-16.2) L 03/20/20 11:33 Hct 33.3 % (37.0-47.0) L 03/20/20 11:33 Plt Count 216 K/mm3 (142-424) 03/20/20 11:33 BUN 54 mg/dl (7-17) H D 03/21/20 05:40 Creatinine 3.60 mg/dl (0.52-1.04) H 03/21/20 05:40 Estimated Creat Clear 21 mL/min (50-200) 03/21/20 05:40 Was VTE Risk Assessment Performed: Yes VTE Score: 3 VTE Risk Level: Low Risk Clinical Trial Participant: No - Prophylaxis VTE Prophylaxis Ordered?: Yes Types of VTE Prophylaxis: TEDS Knee High Location of Applied Device: Bilateral Lower Extremeties
--- NOTE | 2020-03-21 08:01 | HMH.PHAINT ---
HOME MEDICAITON RECONCILIATION COMPLETED USING LIST FROM HOME PHARMACY
--- NOTE | 2020-03-21 08:07 | CA_ITS ---
APPROVED REPORT Volunteer Services Assistant: CT Laterality: Bilateral Study Quality: Good Indications: bilateral carotid bruits Risk Factors Hypertension: Hyperlipidemia Doppler Spectral Velocity Analysis ECA (R) 88.30/11.10 cm/s ECA (L) 83.90/8.40 cm/s dICA (R) 67.70/21.20 cm/s dICA (L) 60.30/19.00 cm/s Asha (R) 63.20/15.10 cm/s Asha (L) 69.00/17.50 cm/s pICA (R) 62.60/19.80 cm/s pICA (L) 36.80/10.40 cm/s dCCA (R) 78.80/23.10 cm/s dCCA (L) 60.90/12.90 cm/s pCCA (R) 64.30/14.60 cm/s pCCA (L) 59.30/8.40 cm/s Vert (R) 41.90/9.80 cm/s Vert (L) 33.00/8.40 cm/s ICA/CCA 0.90 ICA/CCA 1.00 Findings Duplex evaluation demonstrates stenosis of the right proximal internal carotid artery in the range of 20-49%, lower end of scale. Duplex evaluation demonstrates stenosis of the left proximal internal carotid artery in the range of 20-49%, lower end of scale. Duplex evaluation demonstrates antegrade flow of the bilateral Vertebral Arteries. Conclusion Duplex evaluation demonstrates stenosis of the right proximal internal carotid artery in the range of 20-49%, lower end of scale. Duplex evaluation demonstrates stenosis of the left proximal internal carotid artery in the range of 20-49%, lower end of scale. Duplex evaluation demonstrates antegrade flow of the bilateral Vertebral Arteries. Electronically signed by : Keenan Peterson MD 03/21/2020 16:33:28
--- NOTE | 2020-03-21 08:09 | HMH.CNCARD ---
History of Present Illness Consult date: 03/21/20 Requesting physician: Lilibeth Hart Consult reason: congestive heart failure Chief complaint: SOA Additional Medical History:: 1. Hypertension, malignant 2. Tobacco use, approximately 33-[id number]-dkup history (1 pack/day for 20 years), discontinued approximately 6 months ago 3. Recurrent nephrolithiasis requiring lithotripsy 4. History of x2 5. Cardiomyopathy, ejection fraction of 30%, 05/2019 A. Recurrent congestive heart failure 6. Severe aortic insufficiency by echocardiogram 05/2019 7. Severe mitral regurgitation by echocardiogram 05/2019 8. Remote history of CVA 9. Chronic kidney disease, stage IV, creatinine 3.1-3.6 with GFR 13-19, 02/2020 History of present illness: 54-year-old white female with malignant hypertension is admitted from the emergency room. She has been off of her medications for 2 to 3 weeks she states. She has not been able to locate a primary care doctor. She was hospitalized in December at [facility] with a similar presentation. At that time her story was that she had moved from [place] to [facility] to live with her daughter. She apparently had been admitted to the [facility] several times with malignant hypertension. She was discharged from there on regimen of triple blood pressure medicines including clonidine 0.3 mg 3 times a day. Apparently she was also on amlodipine. At that hospitalization in December she was discharged on clonidine and amlodipine, but as stated has been off her medications. In December she was also on a nitroglycerin drip in order to bring her blood pressure under control. Prior ECHO from 05/2019: Conclusion 1. Moderate biatrial enlargement, dilated left ventricle, severely reduced left ventricular systolic function, visually estimated ejection fraction 30%, left ventricle is globally hypokinetic. Diastolic parameters are inconclusive. 2. Enlarged right ventricle with normal contractility. 3. Abnormal aortic valve with severe aortic insufficiency. 4. Abnormal mitral valve with severe mitral regurgitation 5. Abnormal tricuspid valve with severe tricuspid regurgitation, calculated right ventricular systolic pressure is 64 mmHg consistent with moderate elevation in right ventricular systolic pressure. 6. No significant pericardial effusion noted. Inferior vena cava is not well-visualized The above per Dr. Hart Patient confirms the above account of being off of medications for 2 to 3 weeks due to insurance issues. She relates increasing shortness of breath over the last several days along with lower extremity edema 1-2 times per week. Patient does not recall ever being told she needed any cardiac surgery. Patient discontinued smoking about 6 months ago. She denies history of diabetes. [facility] History Medical History: Reports:: Congestive Heart Failure, Hypertension, Renal Insufficiency, Valvular Heart Disease Denies:: Cancer, Diabetes Mellitus Type 1, Diabetes Mellitus Type 2, Migraine (But headaches with her hypertension.), MRSA, Myocardial Infarction *Have you ever received a pneumonia vaccine?: No (She denies though it seems likely she would received at some point) *Have you received a flu vaccine this season?: No Other Medical History: Reports: Arthritis (Hands). Denies: Hypothyroidism Other Surgeries: Yes: Colonoscopy, Amputation: No - *Social History Last grade of school completed: High school graduate Smoking Status: Former smoker Tobacco Type: cigarettes # Packs/Day (cigarettes): 1 Alcohol Intake: never *Occupational Status:: unemployed (Did work at [employer]) Household Members: children (Daughter 28 years old son 25 years old 3 grandchildren.) *Travel in the last 8 weeks: None Family Hx:: Cancer, Diabetes, Hypertension, Kidney Disease Meds Home Medications Medication Instructions Recorded Confirmed Type Albuterol Sulfate [Albuterol 8.5
--- NOTE | 2020-03-21 13:23 | HMH.ACPN2 ---
Internal Medicine - PN: Subj *Date: 03/21/20 *Time: 13:23 Interval history: She looks much better this morning! Color is better. She feels better and was able to sleep last night. Exam Vital signs and Labs for Last 24 Hours: Temp Pulse Resp BP Pulse Ox 98.1 F 76 18 157/92 H 99 03/21/20 11:00 03/21/20 11:00 03/21/20 11:00 03/21/20 11:00 03/21/20 11:00 Laboratory Results - last 24 hr 03/20/20 14:15: Troponin I 0.09 H 03/20/20 17:57: Troponin I 0.07 H 03/21/20 05:40: Sodium 136, Potassium 4.0, Chloride 104, Carbon Dioxide 23, Anion Gap 13.0, BUN 54 H D, Creatinine 3.60 H, Estimated Creat Clear 21, Estimated GFR 13 L*, Est GFR ( Amer) 16 L*, Glucose 152 H D, Calcium 9.0 I & O for Last 24 hours: Intake & Output 03/19/20 03/20/20 03/21/20 03/22/20 11:59 11:59 11:59 11:59 Intake Total 1590 / 1590 Output Total 1900 / 1900 Balance -310 / -310 Weight 145 lb 161 lb 1 oz - Constitutional no acute distress - *Routine HEENT Exam Head: Present: normocephalic Eye: Present: PERRL ENT: Present: mucous membranes moist - *Routine Respiratory Exam Present: decreased breath sounds (at bases) - *Routine Cardiovascular Exam Present: RRR, murmur - *Routine Extremities Exam Absent: edema - *Routine Neurological Exam Present: alert, oriented X3 Assessment and Plan (1) Hypertensive urgency, malignant Current visit: No Status: Resolved Category: Medical Code(s): I16.0 - Hypertensive urgency (2) CHF due to valvular disease Current visit: Yes Status: Acute Category: Medical Code(s): I50.9 - Heart failure, unspecified; I38 - Endocarditis, valve unspecified (3) Valvular heart disease Current visit: Yes Status: Acute Category: Medical Code(s): I38 - Endocarditis, valve unspecified (4) Chronic kidney disease Current visit: No Status: Chronic Category: Medical Code(s): N18.9 - Chronic kidney disease, unspecified (5) Noncompliance Current visit: No Status: Acute Category: Medical Code(s): Z91.19 - Patient's noncompliance with other medical treatment and regimen (6) Pleural effusion, left Current visit: Yes Status: Acute Category: Medical Code(s): J90 - Pleural effusion, not elsewhere classified - Assessment and plan all Dx Assessment and Plan for all problems:: Medication changes discussed with Milton (cardiology).
--- NOTE | 2020-03-21 15:08 | PC.NURSE ---
PT IS RESTING IN BED. BP HAS IMPROVED SINCE MORNING MEDICATIONS. O2 SATURATION 91-95 % ON 2 L NC. PT HAS BEEN UP AMBULATING TO THE BATHROOM. EATING AND DRINKING WELL. LUNG SOUNDS DIMINISHED. BOWEL SOUNDS NORMAL. PT STATED HER LAST BOWEL MOVEMENT WAS YESTERDAY. PT WAS OFFERED A SHOWER OR BED BATH THIS SHIFT AND REFUSED. TEDS NOTED TO BLE. WILL CONTINUE TO MONITOR.
--- NOTE | 2020-03-21 19:21 | PC.NURSE ---
report given to latonia
--- NOTE | 2020-03-21 23:37 | PC.NURSE ---
She is A&Ox4. Her continues on 3LPM n/c. Will attempt to wean to 2LPM n/c. Per report, pt's O2 has been titrated between 2 and 3 LPM n/c. She reports that she wears 2LPM n/c when needed at home. She has ambulated to the bathroom independently with steady gait. She denies pain. Denies SOA. She reports an occasional non-productive cough. TEDs are in place.
[2020-03-22] VITALS (40 sets, daily range): BP systolic 133–190; BP diastolic 78–117; PULSE 68–90; RESP 15–20; TEMP 36.4–36.9; O2SAT 92–100; BMI 26.6
[2020-03-22 06:27] LABS: Basophils % 0.1 % (0.1-2.0); Eosinophils % 0.2 % (0.1-12.0); Hematocrit 33.9 % (37.0-47.0); Hemoglobin 11.2 g/dL (12.2-16.2); Lymphocytes # 0.6 K/mm3 (0.7-4.5); Lymphocytes % 3.3 % (10-50); Mean Corpuscular Hemoglobin 27.2 pg (27.0-31.2); Mean Corpuscular Volume 82.5 fl (81-99); Monocytes # 0.3 K/mm3 (0.1-1.0); Monocytes % 1.8 % (1.7-9.3); Neutrophils # 15.6 K/mm3 (1.8-7.8); Neutrophils % 94.6 % (37.0-80.0); Platelet Count 260 K/mm3 (142-424); Red Blood Count 4.11 M/mm3 (4.20-5.40); Red Cell Distribution Width 19.6 % (11.5-17.5); White Blood Count 16.5 K/mm3 (4.8-10.8)
[2020-03-22 06:29] LABS: Chloride 101 mmol/L (98-107); Sodium 137 mmol/L (136-145)
[2020-03-22 06:30] LABS: Potassium 3.7 mmoL/L (3.5-5.1)
[2020-03-22 06:32] LABS: Blood Urea Nitrogen 74 mg/dl (7-17); Creatinine Clearance Estimated 17 mL/min (50-200); Estimated Glomerular Filt Rate 11 ml/min (>60); GFR (African American) 13 ML/MIN (>60); MANUAL DIFFERENTIAL MANUAL DIFFERENTIAL (MANUAL DIFF)
[2020-03-22 06:33] LABS: Anion Gap 13.7 mEq/L (5-15); Calcium 8.7 mg/dl (8.4-10.2); Carbon Dioxide 26 mmol/L (22.0-30.0); Glucose 259 mg/dl (74-100)
[2020-03-22 07:42] LABS: Eosinophils % 1 % (0-3); Lymphocytes % 2 % (10-50); Monocytes % 1 % (2-9); Neutrophils % 96 % (42-76); Total Cells Counted 100
[2020-03-22 07:43] LABS: Hypochromasia 1+; Platelet Estimate Normal
--- NOTE | 2020-03-22 07:57 | PC.NURSE ---
CHRIS LAZO RN IS PROVIDING CARE ON PATIENT WITH MY ASSISTANCE AND SUPERVISION
--- NOTE | 2020-03-22 09:23 | HMH.ACPN2 ---
Internal Medicine - PN: Subj *Date: 03/22/20 *Time: 09:23 Interval history: She feels better and is doing better. Her extensive valvular heart disease remains the basis of the of her problems. That along with her renal dysfunction. Blood pressure remains high. This was discussed with cardiology and we will increase the carvedilol to 25 mg twice daily. We need to arrange follow-up with [facility] regarding her heart disease and her kidney disease. Exam Vital signs and Labs for Last 24 Hours: Temp Pulse Resp BP Pulse Ox 97.6 F 82 20 190/95 H 96 03/22/20 08:00 03/22/20 07:27 03/22/20 07:47 03/22/20 07:27 03/22/20 07:47 Laboratory Results - last 24 hr 03/22/20 05:40: WBC 16.5 H D, RBC 4.11 L, Hgb 11.2 L, Hct 33.9 L, MCV 82.5, MCH 27.2, MCHC 33.0, RDW 19.6 H, Plt Count 260, MPV 8.0, Neut % (Auto) 94.6 H, Lymph % (Auto) 3.3 L, [place] % (Auto) 1.8, Eos % (Auto) 0.2, Baso % (Auto) 0.1, Neut # (Auto) 15.6 H, Lymph # (Auto) 0.6 L, [place] # (Auto) 0.3, Eos # (Auto) 0.0, Baso # (Auto) 0.0, Total Counted 100, Neutrophils % (Manual) 96 H, Lymphocytes % (Manual) 2 L, Monocytes % (Manual) 1 L, Eosinophils % (Manual) 1, Platelet Estimate Normal, Hypochromasia 1+ 03/22/20 05:40: Sodium 137, Potassium 3.7, Chloride 101, Carbon Dioxide 26, Anion Gap 13.7, BUN 74 H D, Creatinine 4.30 H, Estimated Creat Clear 17, Estimated GFR 11 L*, Est GFR ( Amer) 13 L*, Glucose 259 H D, Calcium 8.7 I & O for Last 24 hours: Intake & Output 03/19/20 03/20/20 03/21/20 03/22/20 11:59 11:59 11:59 11:59 Intake Total 1590 / 1590 1690 / 1690 Output Total 1900 / 1900 1250 / 1250 Balance -310 / -310 440 / 440 Weight 145 lb 161 lb 1 oz 156 lb 6 oz Microbiology Reports for the Last 24 Hours: Microbiology 03/20/20 11:33 Blood Blood Culture - Preliminary - Constitutional no acute distress - *Routine HEENT Exam Head: Present: normocephalic Eye: Present: PERRL - *Routine Neck Exam Present: supple. Absent: JVD - *Routine Respiratory Exam Present: CTA bilaterally - *Routine Cardiovascular Exam Present: RRR, murmur - *Routine Abdominal Exam Present: soft. Absent: tenderness - *Routine Extremities Exam Absent: edema Assessment and Plan (1) Hypertensive urgency, malignant Current visit: No Status: Resolved Category: Medical Code(s): I16.0 - Hypertensive urgency (2) CHF due to valvular disease Current visit: Yes Status: Acute Category: Medical Code(s): I50.9 - Heart failure, unspecified; I38 - Endocarditis, valve unspecified (3) Valvular heart disease Current visit: Yes Status: Acute Category: Medical Code(s): I38 - Endocarditis, valve unspecified (4) Chronic kidney disease Current visit: No Status: Chronic Category: Medical Code(s): N18.9 - Chronic kidney disease, unspecified (5) Noncompliance Current visit: No Status: Acute Category: Medical Code(s): Z91.19 - Patient's noncompliance with other medical treatment and regimen (6) Pleural effusion, left Current visit: Yes Status: Acute Category: Medical Code(s): J90 - Pleural effusion, not elsewhere classified - Assessment and plan all Dx Assessment and Plan for all problems:: As above. Increase carvedilol. Disposition will be an issue.
--- NOTE | 2020-03-22 09:25 | PC.NURSE ---
MADE MD AWARE OF PATIENT ELEVATED BP AND CREATNINE. STATED TO LEAVE IN STEPDOWN AT THIS TIME. INCREASED DOSE OF COREG. ALREADY GAVE 12.5MG SO WILL GIVE ANOTHER 12.5MG AT THIS TIME NOW TO EQUAL 25MG
--- NOTE | 2020-03-22 11:46 | HMH.PNCARD ---
Subjective Date: 03/22/20 Time: 11:46 Principal diagnosis: AI, MR severe Interval history: 54 yo WF in bed in NAD. Breathing improved but Still with exertional SOA just going to bathroom. No chest pains. Echo confirms severe AI and MR with LVEF of 50%, grade II diastolic dysfunction. RVSP 63 mm Hg with moderate TR. Cr increased to 4.3 discussed need for transfer for surgical intervention. Exam Vital signs and Labs for Last 24 Hours: Temp Pulse Resp BP Pulse Ox 97.6 F 71 20 180/90 H 95 03/22/20 08:00 03/22/20 11:02 03/22/20 10:00 03/22/20 10:00 03/22/20 11:02 Laboratory Results - last 24 hr 03/22/20 05:40: WBC 16.5 H D, RBC 4.11 L, Hgb 11.2 L, Hct 33.9 L, MCV 82.5, MCH 27.2, MCHC 33.0, RDW 19.6 H, Plt Count 260, MPV 8.0, Neut % (Auto) 94.6 H, Lymph % (Auto) 3.3 L, [place] % (Auto) 1.8, Eos % (Auto) 0.2, Baso % (Auto) 0.1, Neut # (Auto) 15.6 H, Lymph # (Auto) 0.6 L, [place] # (Auto) 0.3, Eos # (Auto) 0.0, Baso # (Auto) 0.0, Total Counted 100, Neutrophils % (Manual) 96 H, Lymphocytes % (Manual) 2 L, Monocytes % (Manual) 1 L, Eosinophils % (Manual) 1, Platelet Estimate Normal, Hypochromasia 1+ 03/22/20 05:40: Sodium 137, Potassium 3.7, Chloride 101, Carbon Dioxide 26, Anion Gap 13.7, BUN 74 H D, Creatinine 4.30 H, Estimated Creat Clear 17, Estimated GFR 11 L*, Est GFR ( Amer) 13 L*, Glucose 259 H D, Calcium 8.7 I & O for Last 24 hours: Intake & Output 03/19/20 03/20/20 03/21/20 03/22/20 11:59 11:59 11:59 11:59 Intake Total 1590 / 1590 1690 / 1690 Output Total 1900 / 1900 1250 / 1250 Balance -310 / -310 440 / 440 Weight 145 lb 161 lb 1 oz 156 lb 6 oz Microbiology Reports for the Last 24 Hours: Microbiology 03/20/20 11:33 Blood Blood Culture - Preliminary NO GROWTH AFTER 48 HOURS 03/20/20 11:33 Blood Blood Culture - Preliminary - *Routine Respiratory Exam Present: CTA bilaterally - *Routine Cardiovascular Exam Present: RRR, murmur - *Routine Extremities Exam Absent: cyanosis, clubbing, edema - *Routine Neurological Exam Present: alert, oriented X3 Progress Note: A&P (1) Hypertensive urgency, malignant Status: Resolved Current Visit: No (2) CHF due to valvular disease Status: Acute Current Visit: Yes (3) Valvular heart disease Status: Acute Current Visit: Yes (4) Chronic kidney disease Status: Chronic Current Visit: No (5) Noncompliance Status: Acute Current Visit: No (6) Pleural effusion, left Status: Acute Current Visit: Yes (7) Aortic valve insufficiency Status: Acute Current Visit: Yes (8) Mitral valve insufficiency Status: Acute Current Visit: Yes (9) Grade II diastolic dysfunction Status: Acute Current Visit: Yes Assessment and Plan for All Diagnoses:: Recommend transfer to for further cardiac evaluation and treatment for mixed valve disease and possible dialysis. Start nipride for BP control Stop NTG gtt. Increase coreg
--- NOTE | 2020-03-22 15:55 | PC.NURSE ---
called to let dr. hayden know that stated they would have a bed for the patient shortly
--- NOTE | 2020-03-22 16:39 | PC.NURSE ---
patient systolic has been under 160 so turned drip down at this time to 0.1mcg/kg/min
--- NOTE | 2020-03-22 17:16 | XR_ITS ---
PROCEDURE: XR ELBOW RT MIN 3V CLINICAL INDICATION: fall Posttraumatic pain COMPARISON: No exams were available for comparison FINDINGS: No fracture or dislocation. No lytic or blastic change. There is normal mineralization. The joint spaces are well-preserved. No significant degenerative/arthritic changes. No erosive changes evident. Other findings:None. IMPRESSION: No acute findings. Dictated by: Keenan Peterson MD 03/22/2020 18:54 Keenan Peterson MD in [place] 03/22/2020 18:54
--- NOTE | 2020-03-22 17:16 | XR_ITS ---
PROCEDURE: XR KNEE RT 3V CLINICAL INDICATION: fall Posttraumatic pain COMPARISON: No exams were available for comparison FINDINGS: No fracture or dislocation. No lytic or blastic change. There is normal mineralization. There are mild osteoarthritic changes involving all 3 compartments. This is greater at the medial compartment. Small knee joint effusion is suspected in the suprapatellar region. Other findings:None. IMPRESSION: Mild osteoarthritis with small knee joint effusion Dictated by: Keenan Peterson MD 03/22/2020 18:54 Keenan Peterson MD in [facility] 03/22/2020 18:54
--- NOTE | 2020-03-22 17:16 | PC.NURSE ---
patient assisted to bathroom and instructed to call when finished. patient ambulated self from toilet to bathroom door where she states she got dizzy and fell . patient states she hit her r elbow and knee, both are sore and slight bruising noted. md notified who stated to get an xray of both
--- NOTE | 2020-03-22 18:26 | PC.NURSE ---
attempted to call report twice to [facility]. they stated that the room was still being cleaned so they could not take report.
--- NOTE | 2020-03-22 18:59 | PC.NURSE ---
patient has done okay this shift, some pain in elbow and knee from fall. ice applied per md approval and tylenol given. bp remains elevated titrating drip as required. stable. no needs at this time. independent tturns
--- NOTE | 2020-03-22 19:41 | PC.NURSE ---
report called to eren ferguson at [facility]
--- NOTE | 2020-03-22 20:40 | PC.NURSE ---
patient transported via ambulance service with portable oxygen, cardiac cath technician shows sr. nitroprusside drip infusing at 0.3 mcq/kg/min, blood 169 systolic. awake alert and oriented. denies pain, nausea, vomiting or shortness of air. belongings with patient.
--- NOTE | 2020-03-25 08:45 | HMH.DCSUM ---
General - General Admission date:: 03/20/20 Discharge date: 03/22/20 HPI HPI: 54-year-old white female with malignant hypertension admitted from the emergency room. She stated that she had been off of her medications for 2 to 3 weeks. She had not been able to locate a primary care doctor. She was hospitalized in December at [facility] with a similar presentation. At that time her story was that she had moved from [place] to [facility] to live with her daughter. She apparently had been admitted to the [facility] several times with malignant hypertension. She was discharged from there on regimen of triple blood pressure medicines including clonidine 0.3 mg 3 times a day. Apparently she was also on amlodipine. At that hospitalization in December she was discharged on clonidine and amlodipine, but as stated was off her medications. In December she was also on a nitroglycerin drip in order to bring her blood pressure under control. Prior ECHO: Conclusion 1. Moderate biatrial enlargement, dilated left ventricle, severely reduced left ventricular systolic function, visually estimated ejection fraction 30%, left ventricle is globally hypokinetic. Diastolic parameters are inconclusive. 2. Enlarged right ventricle with normal contractility. 3. Abnormal aortic valve with severe aortic insufficiency. 4. Abnormal mitral valve with severe mitral regurgitation 5. Abnormal tricuspid valve with severe tricuspid regurgitation, calculated right ventricular systolic pressure is 64 mmHg consistent with moderate elevation in right ventricular systolic pressure. 6. No significant pericardial effusion noted. Inferior vena cava is not well-visualized. Hospital Course Hospital Course: Patient was placed on a nitroglycerin drip on admission. Cardiology was consulted the following assessment and plan for problems: Assessment and Plan for all problems:: 1. Malignant hypertension, improved with reinstitution of PO medication along with transient IV nitroglycerin. 2. Recurrent congestive heart failure, continue diuretic therapy. 3. Cardiomyopathy, severe. Continue ARB, lasix and will start coreg. Pt will need Right and left heart cath prior to discharge. 4. Severe aortic insufficiency combined with severe mitral regurgitation in the setting of severe cardiomyopathy. Continue irbesartan and furosemide. Will stop clonidine and metoprolol and use coreg instead. 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 Will obtain echo today and make further recommendations. Patient did begin to feel better . Her extensive valvular heart disease remained the basis of her problems along with her renal dysfunction. Her blood pressure did remain high. Medications were changed by increasing her carvedilol to 25 mg twice daily. Plans were made for follow-up with the [facility] regarding her heart disease and her kidney disease. Nitroglycerin drip was discontinued and she was started on nipride gtt for blood pressure control. On 03/22/2020 patient noted that her breathing had improved but she still had exertional shortness of breath with just going to the bathroom. She denied chest pain. Echo confirmed severe AI and MR with left ventricular ejection fraction of 50% with a grade 2 diastolic dysfunction. RVSP was at 63mmHg with moderate TR. Creatinine was noticed to have increased to 4.3. [facility] agreed for transfer. Thus on 03/22/2020 patient was transferred to the [facility] via ambulance with circle edger to the services of Dr. JOHNSON. Condition at transfer was stable. Medications and further medical care to be determined by the physicians at . Objective Vital signs: Temp Pulse Resp BP Pulse Ox 98.3 F 76 18 179/99 H 95 03/22/20 20:00 03/22/20 20:31 03/22/20 20:00 03/22/20 20:00 03/22/20 20:00 N
== END 2020-03-22 20:40 | disposition home or self-care (01) | DRG 305 ==
LOC: ER 12:05 → 2ND 13:20
PROVIDERS: Admitting Provider Family Medicine; Emergency Provider Emergency Medicine; Visit Provider Family Medicine
DX: I16.0 Hypertensive urgency (principal); J90 Pleural effusion, not elsewhere classified; I38 Endocarditis, valve unspecified; I50.30 Unspecified diastolic (congestive) heart failure; I42.9 Cardiomyopathy, unspecified; N18.9 Chronic kidney disease, unspecified; Z91.120 Patient's intentional underdosing of medication regimen due to financial hardship; I08.0 Rheumatic disorders of both mitral and aortic valves
CPT/HCPCS: 36415; 71045; 73070; 73080; 73560; 73562; 80048; 80053; 82803; 83605; 83880; 84484; 85007; 85025; 86328; 87040; 87077; 93005; 93306; 93880; 94640; 94760; 96367; 96374; 99285; J2405

== ENCOUNTER 2021-01-03 12:47 | Inpatient (IN) | payer MEDICAID, SELFPAY ==
[2021-01-03] VITALS (29 sets, daily range): BP systolic 100–239; BP diastolic 59–161; PULSE 42–102; RESP 14–27; TEMP 34.7–37; O2SAT 89–97; BMI 24.0; BMI 25.1
--- NOTE | 2021-01-03 12:49 | XR_ITS ---
PROCEDURE: XR CHEST PORTABLE CLINICAL HISTORY: short of breath COMPARISON: CR XR CHEST PORTABLE from 07/09/2019 CR XR CHEST PORTABLE from 01/08/2020 CR XR CHEST PORTABLE from 03/20/2020 FINDINGS: There is cardiomegaly with mild pulmonary venous congestion consistent with CHF. Prior CABG increased density in the right lower lobe consistent with effusion. There may be underlying consolidation as well. Right lower lobe opacification has progressed since the previous exam. Small left effusion also noted. Calcified granuloma right upper lobe. IMPRESSION: Mild CHF with bilateral effusions right larger than left and with consolidation in the right lower lobe. Dictated by: Keenan Peterson MD 01/03/2021 13:36 Keenan Peterson MD in [facility] 01/03/2021 13:36
--- NOTE | 2021-01-03 12:50 | ECG_ITS ---
APPROVED REPORT Exam: Resting ECG HR:93 bpm ECG Measurements Heart Rate 93 AXES NV 170 P 79 QRSd 96 QRS 5 QT 384 T 129 QTc 477 Conclusion Normal sinus rhythm Possible Left atrial enlargement Left ventricular hypertrophy with repolarization abnormality Abnormal ECG Electronically signed by : Duke Montez, 01/03/2021 21:59:09
--- NOTE | 2021-01-03 12:54 | HMH.EDGENADL ---
ED Disposition Clinical Impression: Valvular heart disease CHF exacerbation Qualifiers: Heart failure type: unspecified Qualified Code(s): I50.9 - Heart failure, unspecified Pneumonia Qualifiers: Pneumonia type: due to unspecified organism Laterality: right Lung location: lower lobe of lung Qualified Code(s): J18.9 - Pneumonia, unspecified organism Renal failure Qualifiers: Renal failure chronicity: acute on chronic Acute renal failure type: unspecified Chronic kidney disease stage: unspecified stage Qualified Code(s): N17.9 - Acute kidney failure, unspecified; N18.9 - Chronic kidney disease, unspecified Disposition: Admitted As Inpatient Condition on Discharge: Serious Time of Disposition: 19:03 - Critical Care Critical Care Time: No Attestation: On , the high probability of a clinically significant, sudden or life threatening deterioration of the following system(s) required my full and direct attention, intervention and personal management. The time I documented below is in addition to time spent performing reported procedures but includes the following listed in this critical care notation. Medical Decision Making - Medical Records Medical records reviewed: Yes: I reviewed the patient's medical records. - [place] Inquiry Pt receiving controlled substance: No Vital Signs: 01/03/21 12:48 01/03/21 13:01 01/03/21 13:30 Temperature 98.0 F Temperature Source Oral Pulse Rate 94 H 95 H Pulse Rate [Right] 102 H Respiratory Rate 18 27 H 26 H Blood Pressure 238/161 H 239/156 H Blood Pressure [Right Arm] 236/157 H Blood Pressure Mean 186 186 Blood Pressure Mean [Right Arm] 183 Blood Pressure Source Blood Pressure Source [Right Arm] Automatic Cuff Blood Pressure Position Blood Pressure Position [Right Arm] Sitting 02 Sat by Pulse Oximetry 96 96 93 L Oxygen Delivery Method Nasal Cannula Oxygen Flow Rate (LPM) 3 01/03/21 14:01 01/03/21 14:31 01/03/21 14:38 Temperature Temperature Source Pulse Rate 87 51 L 60 Pulse Rate [Right] Respiratory Rate 22 22 18 Blood Pressure 181/108 H 113/70 117/77 Blood Pressure [Right Arm] Blood Pressure Mean 148 86 Blood Pressure Mean [Right Arm] Blood Pressure Source Automatic Cuff Blood Pressure Source [Right Arm] Blood Pressure Position Sitting Blood Pressure Position [Right Arm] 02 Sat by Pulse Oximetry 89 L 89 L 90 L Oxygen Delivery Method Nasal Cannula Oxygen Flow Rate (LPM) 3 01/03/21 15:00 01/03/21 15:31 01/03/21 16:00 Temperature Temperature Source Pulse Rate 51 L 59 L Pulse Rate [Right] Respiratory Rate 21 27 H 20 Blood Pressure 106/67 L 129/73 126/82 Blood Pressure [Right Arm] Blood Pressure Mean 80 81 86 Blood Pressure Mean [Right Arm] Blood Pressure Source Automatic Cuff Blood Pressure Source [Right Arm] Blood Pressure Position Sitting Blood Pressure Position [Right Arm] 02 Sat by Pulse Oximetry 90 L 90 L 95 Oxygen Delivery Method Nasal Cannula Oxygen Flow Rate (LPM) 3 01/03/21 16:15 01/03/21 16:30 01/03/21 16:45 Temperature Temperature Source Pulse Rate 58 L 60 60 Pulse Rate [Right] Respiratory Rate 20 Blood Pressure 133/80 126/75 126/74 Blood Pressure [Right Arm] Blood Pressure Mean 89 89 89 Blood Pressure Mean [Right Arm] Blood Pressure Source Automatic Cuff Blood Pressure Source [Right Arm] Blood Pressure Position Sitting Blood Pressure Position [Right Arm] 02 Sat by Pulse Oximetry 94 L 96 95 Oxygen Delivery Method Nasal Cannula Oxygen Flow Rate (LPM) 3 01/03/21 17:00 01/03/21 17:27 Temperature 98.3 F Temperature Source Oral Pulse Rate 42 L 63 Pulse Rate [Right] Respiratory Rate 24 16 Blood Pressure 126/79 122/75 Blood Pressure [Right Arm] Blood Pressure Mean 91 Blood Pressure Mean [Right Arm] Blood Pressure Source Automatic Cuff Blood Pressure Source [Right Arm] Blood Pressure Position Sitting
[2021-01-03 13:42] LABS: Basophils # 0.1 K/mm3 (0-0.2); Basophils % 0.8 % (0.1-2.0); Eosinophils # 0.1 K/mm3 (0.0-0.4); Eosinophils % 0.8 % (0.1-12.0); Hemoglobin 10.5 g/dL (12.2-16.2); Lymphocytes # 0.8 K/mm3 (0.7-4.5); Lymphocytes % 8.6 % (10-50); Mean Corpuscular HGB Conc 32.9 g/dL (31.8-35.4); Mean Corpuscular Hemoglobin 26.2 pg (27.0-31.2); Mean Corpuscular Volume 79.6 fl (81-99); Mean Platelet Volume 7.6 fl (7.4-10.4); Monocytes # 0.4 K/mm3 (0.1-1.0); Monocytes % 3.9 % (1.7-9.3); Neutrophils # 7.9 K/mm3 (1.8-7.8); Platelet Count 226 K/mm3 (142-424); Red Blood Count 4.02 M/mm3 (4.20-5.40); Red Cell Distribution Width 17.4 % (11.5-17.5); White Blood Count 9.2 K/mm3 (4.8-10.8)
[2021-01-03 13:48] LABS: Chloride 105 mmol/L (98-107); Sodium 141 mmol/L (136-145)
[2021-01-03 13:49] LABS: Potassium 3.4 mmoL/L (3.5-5.1)
[2021-01-03 13:51] LABS: Alanine Aminotransferase 15 U/L (12-78); Albumin Level 4.3 g/dl (3.5-5.0); Albumin/Globulin Ratio 1.2 (1.1-1.8); Alkaline Phosphatase 109 U/L (38-126); Anion Gap 14.4 mEq/L (5-15); Aspartate Amino Transferase 28 U/L (14-36); Bilirubin,Total 0.9 mg/dl (0.2-1.3); Blood Urea Nitrogen 37 mg/dl (7-17); Calcium 9.3 mg/dl (8.4-10.2); Carbon Dioxide 25 mmol/L (22.0-30.0); Creatinine Clearance Estimated 18 mL/min (50-200); Estimated Glomerular Filt Rate 14 ml/min (>60); GFR (African American) 16 ML/MIN (>60); Globulin 3.7 g/dL (1.3-3.2); Glucose 116 mg/dl (74-100)
[2021-01-03 13:53] LABS: MANUAL DIFFERENTIAL MANUAL DIFFERENTIAL (MANUAL DIFF)
[2021-01-03 14:01] LABS: NT Pro Brain Natriuretic Pep. 20000 pg/mL (0-125)
[2021-01-03 14:04] LABS: Troponin I 0.09 ng/ml (0.00-0.034)
--- NOTE | 2021-01-03 14:14 | PC.NURSE ---
notified cardiology office of consult on pt per ER request
[2021-01-03 14:17] LABS: Anisocytosis 1+; Lymphocytes % 5 % (10-50); Monocytes % 1 % (2-9); Neutrophils % 94 % (42-76); Platelet Estimate Normal; Poikilocytosis 1+; RBC Morphology Normal; Total Cells Counted 100
--- NOTE | 2021-01-03 14:48 | PC.NURSE ---
notified CV lab of echo order
[2021-01-03 14:53] LABS: POC Glucose,Bedside 112 (70-110)
--- NOTE | 2021-01-03 15:08 | PC.NURSE ---
CV lab staff at
--- NOTE | 2021-01-03 15:24 | HMH.CNCARD ---
History of Present Illness Consult date: 01/03/21 Requesting physician: Daniela Onofre Consult reason: congestive heart failure Chief complaint: SOA History of present illness: This is a 55-year-old white female presenting to the emergency department with complaints of shortness of breath. During my examination the patient is not really answering any of my questions or following any commands. All of her history I have obtained from her medical records. When she initially came into the emergency department she was complaining of shortness of breath that started a few days ago. When she woke up this morning she did not feel well she was severely short of breath and had tightness in her chest associated with the shortness of breath. Her blood pressure was elevated and she decided to come into the emergency department. On admission her blood pressure was 236/157 and the patient reported that she had been out of her blood pressure medications for the last several days because her pharmacy ran out of her medications a few days ago. Then she was unable to go supervisor opening and picking her medications. The patient did have a VILLAGOMEZ to LAD 1 year ago. She also had a tricuspid repair. Her office notes state that she had a mitral valve replacement but on her preliminary echocardiogram it looks like she had an aortic valve replacement. The review of systems is unable to be completed because the patient is not answering any of my questions at the time of my examination. As mentioned above she did have malignant hypertension when she came into the emergency department. The patient was given her home dose of carvedilol and nifedipine and her blood pressure dropped down to 106 systolic. Now the patient is very somnolent and is getting a CT of her brain. [facility] History I have reviewed the patient's past medical history: Yes Medical History: Reports:: Atherosclerotic Heart Disease, Congestive Heart Failure, Coronary Artery Disease, Hyperlipidemia, Hypertension, Renal Insufficiency, Valvular Heart Disease Denies:: Cancer, Diabetes Mellitus Type 1, Diabetes Mellitus Type 2, Migraine, MRSA, Myocardial Infarction *Have you ever received a pneumonia vaccine?: No *Have you received a flu vaccine this season?: No Other Medical History: Reports: Arthritis. Denies: Hypothyroidism Other Surgeries: Yes: CABG, Cardiac Catheterization, Colonoscopy, , Open Heart Surgery Amputation: No - *Social History Smoking Status: Former smoker Tobacco Type: cigarettes # Packs/Day (cigarettes): 1 Alcohol Intake: never *Occupational Status:: unemployed Household Members: children *Travel in the last 8 weeks: None Family Hx:: Cancer, Diabetes, Hypertension, Kidney Disease Meds Home Medications Medication Instructions Recorded Confirmed Type Albuterol Sulfate [Albuterol 8.5 gm IH Q6HP PRN #2 [email or web address] 01/10/20 07/19/20 Rx Sulfate Hfa] Tiotropium [place] [Spiriva 1 puff IH DAILY 03/20/20 07/19/20 History Respimat] aspirin 81 mg tablet,delayed 81 mg PO DAILY #30 tab 07/19/20 07/19/20 Rx release atorvastatin 80 mg tablet 80 mg PO DAILY #30 tab 07/19/20 07/19/20 Rx carvedilol 25 mg tablet 25 mg PO BID #60 tab 07/19/20 07/19/20 Rx docusate sodium 100 mg tablet 100 mg PO BID 07/19/20 07/19/20 History methocarbamol 500 mg tablet 500 mg PO TID 07/19/20 07/19/20 History nifedipine 60 mg tablet,extended 60 mg PO DAILY #30 tab 07/19/20 07/19/20 Rx release oxycodone 10 mg tablet 10 mg PO TID PRN 07/19/20 07/19/20 History Allergies Allergy/AdvReac Type Severity Reaction Status Date / Time No Known Allergies Allergy Verified 07/19/20 13:57 Exam Vital signs and Labs for Last 24 Hours: Temp Pulse Resp BP Pulse Ox 98.0 F 60 18 117/77 90 L 01/03/21 12:48 01/03/21 14:38 01/03/21 14:38 01/03/21 14:38 01/03/21 14:38 Laboratory Results - last 24 hr 01/03/21 12:55: WBC 9.2, RBC 4.02 L, Hgb 10.5 L, Hct 32.0 L, MCV 79.6 L, MCH 26.2 L, MCHC 32.9, RDW 17.4, Plt Count 22
--- NOTE | 2021-01-03 15:26 | CT_ITS ---
PROCEDURE: CT HEAD/BRAIN WO CON CLINICAL INDICATION: ams Altered mental status, altered level of consciousness, confusion, disorientation COMPARISON: No exams were available for comparison TECHNIQUE: Axial images obtained. All CT scans at the facility use one or more dose reduction, viz: automated exposure control, ma/kV adjustment per patient size (including targeted exams where dose is matched to indication, i.e. head), or iterative reconstruction technique. FINDINGS: No midline shift, mass effect, intracranial hemorrhage, hydrocephalus, or extra-axial fluid collection is evident. There is generalized atrophy with hypoattenuation of the periventricular white matter consistent with microangiopathic changes. The calvarium has an unremarkable appearance. No mastoid effusion. No sinus air-fluid level. IMPRESSION: No acute intracranial finding Dictated by: Keenan Peterson MD 01/03/2021 16:09 Keenan Peterson MD in [facility] 01/03/2021 16:09
--- NOTE | 2021-01-03 15:33 | PC.NURSE ---
per jose elias,telecommunications engineer stop IVF
--- NOTE | 2021-01-03 15:51 | PC.NURSE ---
pt back from CT
--- NOTE | 2021-01-03 16:06 | PC.NURSE ---
Food tray brought for patient.
--- NOTE | 2021-01-03 16:13 | PC.NURSE ---
WILL RHOADES speaking with Dr. Hart who is teacher adventure education for service pts
--- NOTE | 2021-01-03 16:17 | PC.NURSE ---
notified guest house manager of admission
--- NOTE | 2021-01-03 16:20 | PC.NURSE ---
per melinda in CV lab pt must be NPO for renal artery doppler to be done, states pt study will be done tomorrow morning. notified ER and LANA Solorio
[2021-01-03 16:22] LABS: Troponin I 0.09 ng/ml (0.00-0.034)
--- NOTE | 2021-01-03 16:55 | PC.NURSE ---
contacted lab to check on status of covid swab results. Wally in lab states swab is finished running they are soon to be releasing results
--- NOTE | 2021-01-03 16:59 | PC.NURSE ---
Respiratory called about vbs needed
[2021-01-03 17:06] LABS: VBG Base Excess -5.2 mmol/L (-2.4-2.3); VBG HCO3 21.6 mmol/L (23-30); VBG Oxygen Saturation 97.4 % (50-70); VBG PH 7.27 mmol/L (7.31-7.41); VBG PO2 107.1 mmol/L (28-40); VBG Total CO2 23.1 mmol/L (23-27)
[2021-01-03 17:15] LABS: Microscopic, Urine URINE MICROSCOPIC (MICROSCOPIC)
[2021-01-03 17:38] LABS: Lactic Acid 0.5 mmol/L (0.7-2.1)
[2021-01-03 17:41] LABS: Appearance,Urine CLEAR (Clear); Bilirubin,Urine Negative (Negative); Blood, Urine 2+ (Negative); Color,Urine YELLOW (Yellow); Glucose,Urine (UA) Negative (Negative); Ketones,Urine Negative (Negative); Leukocyte Esterase,Urine Negative (Negative); Nitrate,Urine Negative (Negative); Protein,Urine 3+ (Negative); Specific Gravity, Urine 1.025 (1.005-1.030)
[2021-01-03 18:02] LABS: Squamous Epithelial Cell,Urine Occasional #/hpf (0-5)
--- NOTE | 2021-01-03 18:24 | HMH.HP ---
*Admission Date: 01/03/21 <Luanne Cartagena - 01/03/21 19:16> *Chief complaint: Shortness of breath <Luanne Cartagena - 01/03/21 19:16> *History of present illness: At this time nformation is obtained from documentation from the ER and by cardiology. Patient apparently presented to the emergency room with shortness of breath and chest tightness. She was stable on arrival. Blood pressure was noted to be 238/161. She demonstrated a prolonged expiratory phase with her breathing and with wheezes. The concern was for congestive heart failure, hypertensive urgency, and fluid overload. She had an elevated BUN of 37 and creatinine of 3.6 with which was similar to her previous renal function. BNP was elevated at 20,000. Chest x-ray showed bilateral pleural effusions and possible lower lobe infiltrate. White count was 9000. Gentle Hydration was initiated and then she was given 40 of Lasix IV. She was given carvedilol 25 mg, and 60 mg amlodipine. After being seen by cardiology IV fluids were discontinued and she was given a total of 200mg of Lasix IV. She was also started on Rocephin and Zithromax. Past medical history includes: Valvular heart disease with valvular surgery at the [facility] last year, congestive heart failure, hypertension, renal insufficiency.. She has not followed up with . She does not have a primary care physician. Patient was also seen by cardiology in the emergency room with the following assessment and plan: 1. Patient presented to the emergency department with complaints of shortness of breath. She was found to have a BNP of 20,000 and an elevated troponin at 0.09. Her creatinine is also elevated at 3.50. The patient is in acute CHF. We will give her Lasix 160 mg IV x1 dose now. 2. We will get an echocardiogram to evaluate her LV function. The EF is around 40%. 3. Stop carvedilol and nifedipine. 4. Patient has a history of CABG with a VILLAGOMEZ to the LAD. She does have a slight elevation in her troponin. May consider left cardiac catheterization once her renal function has improved. But for now we will hold off on this because of her acute renal failure. 5. The patient came in with a malignantly elevated blood pressure. She was given her home medications and her blood pressure did go down to a normal range. The patient is very noncompliant and has not been taking her medicines. But for now we need to stop her beta-jamel and calcium channel jamel because she is in acute CHF. 6. We will get a renal duplex secondary to her malignantly elevated blood pressure. 7. LDL goal is less than 55. We will get a lipid panel. 8. If the patient becomes hypotensive with Lasix, she will need to be started on a Levophed drip. 9. Stop IV fluids. She is in acute failure needs diuresis. 10. Further recommendations were made pending the patient's response to treatment. Upon arrival to her room on the medical floor patient became less responsive to the point she became obtunded. Body temperature was found to be 95. She was placed on the bear hugger. Heart rate had gradually dropped and actually was in the 40s to 60 range without ectopy. Blood pressure also dropped into the 90s and up to 100. ABGs were shown to have a metabolic acidosis. Respiratory effort became irregular and she had circumoral cyanosis as well as discolored hands and fingernails. O2 sats dropped into the 80s. She was placed on BiPAP with improvement of respiratory effort and her color. She continued to have good peripheral pulses. Repeat EKG showed a possible anterior infarct. Repeat troponin I's were initiated. She did have some urinary output. She had 1 dose of Narcan with no response. She is moved to stepdown for closer monitoring. She did have some movement of her extremities and did change her position at one time. She did not respond to her name but did try to open her eyes. <Luanne Cartagena - 01/03/21 19:16> [facility] History Medical History: Rep
--- NOTE | 2021-01-03 18:41 | ECG_ITS ---
APPROVED REPORT Exam: Resting ECG HR:54 bpm ECG Measurements Heart Rate [address] 154 P 114 QRSd 96 QRS 21 QT 534 T 141 QTc 506 Conclusion Sinus bradycardia with premature atrial complexes Possible Anterior infarct, age undetermined ST & T wave abnormality, consider lateral ischemia Prolonged QT Abnormal ECG Electronically signed by : Duke Montez, 01/07/2021 11:11:57
[2021-01-03 19:10] LABS: Benzodiazepines Screen,Urine Negative ng/ml (<200)
[2021-01-03 19:11] LABS: Amphetamine/Metha Screen,Urine Negative ng/ml (<1000)
[2021-01-03 19:12] LABS: Barbiturates Screen,Urine Negative ng/ml (<200); Cannabinoid Screen,Urine Negative ng/ml (<50)
[2021-01-03 19:13] LABS: Cocaine Screen,Urine Negative ng/ml (<300)
[2021-01-03 19:14] LABS: Methadone Screen,Urine Negative ng/ml (<300); Opiate Screen,Urine Negative ng/ml (<300)
[2021-01-03 19:15] LABS: Phencyclidine Screen,Urine Negative ng/ml (<25)
[2021-01-03 19:37] LABS: Troponin I 0.09 ng/ml (0.00-0.034)
--- NOTE | 2021-01-03 20:15 | PC.NURSE ---
Med rec not completed d/t pt being nonresponsive. Pt only responsive to painful stimuli. Spoke to Ingris, pt's daughter- she is unaware of what her mother takes and when the last time she has taken any of her medications.
--- NOTE | 2021-01-03 20:26 | PC.NURSE ---
Lab notified of incomplete blood culture order. Stated they had already obtained and spoke to dayshift nurse. Order corrected.
--- NOTE | 2021-01-03 22:01 | PC.NURSE ---
Temperature 98.6 Karolina paw turned off.
[2021-01-04] VITALS (21 sets, daily range): BP systolic 119–167; BP diastolic 69–95; PULSE 40–80; RESP 14–25; TEMP 36.5–36.9; O2SAT 95–100; BMI 24.6; BMI 24.5
[2021-01-04 00:04] LABS: Troponin I 0.09 ng/ml (0.00-0.034)
--- NOTE | 2021-01-04 00:18 | PC.NURSE ---
Upon shift change pt was only responsive to painful stimuli. Pupils were pinpoint. She was on a geraldo paw for hypothermia. Narcan administered and there was a slight dilation of her pupils. Another narcan was administered and after several minutes she sat up in bed. She answered questions. Pupils 2 and PERRLA. She sat up and had a drink of water. She has since been sleeping. She awakens to touch but is drowsy. Have been waking her frequently to assess alertness and temperature. She is not answering questing at this time. Oral cavity is dry; oral care provided.
--- NOTE | 2021-01-04 03:00 | PC.NURSE ---
She awakened at this time stating she was hot. Given a drink of water. HOB was elevated per her request.
[2021-01-04 05:54] LABS: Chloride 107 mmol/L (98-107); Potassium 3.8 mmoL/L (3.5-5.1); Sodium 140 mmol/L (136-145)
[2021-01-04 05:56] LABS: Alanine Aminotransferase 12 U/L (12-78); Aspartate Amino Transferase 30 U/L (14-36); Blood Urea Nitrogen 42 mg/dl (7-17); Creatinine Clearance Estimated 20 mL/min (50-200); Estimated Glomerular Filt Rate 13 ml/min (>60); GFR (African American) 15 ML/MIN (>60)
[2021-01-04 05:57] LABS: Albumin Level 3.7 g/dl (3.5-5.0); Albumin/Globulin Ratio 1.1 (1.1-1.8); Alkaline Phosphatase 92 U/L (38-126); Anion Gap 12.8 mEq/L (5-15); Bilirubin,Total 0.8 mg/dl (0.2-1.3); Calcium 8.5 mg/dl (8.4-10.2); Carbon Dioxide 24 mmol/L (22.0-30.0); Globulin 3.3 g/dL (1.3-3.2); Glucose 84 mg/dl (74-100)
[2021-01-04 06:59] LABS: Basophils # 0.1 K/mm3 (0-0.2); Basophils % 0.7 % (0.1-2.0); Eosinophils # 0.1 K/mm3 (0.0-0.4); Eosinophils % 0.8 % (0.1-12.0); Hematocrit 32.2 % (37.0-47.0); Hemoglobin 10.4 g/dL (12.2-16.2); Lymphocytes # 1.3 K/mm3 (0.7-4.5); Lymphocytes % 11.2 % (10-50); Mean Corpuscular HGB Conc 32.1 g/dL (31.8-35.4); Mean Platelet Volume 7.8 fl (7.4-10.4); Monocytes # 0.7 K/mm3 (0.1-1.0); Monocytes % 5.9 % (1.7-9.3); Neutrophils # 9.6 K/mm3 (1.8-7.8); Neutrophils % 81.3 % (37.0-80.0); Platelet Count 226 K/mm3 (142-424); Red Blood Count 3.98 M/mm3 (4.20-5.40); Red Cell Distribution Width 17.3 % (11.5-17.5); White Blood Count 11.8 K/mm3 (4.8-10.8)
--- NOTE | 2021-01-04 07:36 | P.CONPHA_ITS ---
[facility] VTE Monitoring - Patient Demographics Admission date: 01/04/21 Report Date: 01/04/21 Time: 07:36 Allergies/Adverse Reactions: Patient Allergies No Known Allergies Allergy (Verified 07/19/20 13:57) Height: 1.7 m Weight: 71.299 kg Patient Problems: Current Active Problems CHF exacerbation (Acute) Acute CHF (Acute) SOB (shortness of breath) (Acute) Obtunded (Acute) Hypoxia (Acute) Bradycardia (Acute) Hypertension (Acute) Altered mental status (Acute) History of mitral valve replacement (Acute) History of tricuspid valve repair (Chronic) Heart valve replaced (Acute) CAD (coronary artery disease) (Chronic) History of coronary artery bypass graft (Acute) Chronic kidney disease (Chronic) Noncompliance (Acute) Valvular heart disease (Acute) - VTE Risk Labs: VTE Related Lab Results Hgb 10.4 g/dL (12.2-16.2) L 01/04/21 06:27 Hct 32.2 % (37.0-47.0) L 01/04/21 06:27 Plt Count 226 K/mm3 (142-424) 01/04/21 06:27 BUN 42 mg/dl (7-17) H 01/04/21 05:26 Creatinine 3.70 mg/dl (0.52-1.04) H 01/04/21 05:26 Estimated Creat Clear 20 mL/min (50-200) 01/04/21 05:26 Clinical Trial Participant: No - Prophylaxis VTE Prophylaxis Ordered?: Yes Types of VTE Prophylaxis: TEDS Knee High
--- NOTE | 2021-01-04 08:00 | CA_ITS ---
APPROVED REPORT Chlorine Cell Tender: Coreen Brock RVT Study Quality: Adequate, Due to . Indications: malignant htn Risk Factors Hypertension Hyperlipidemia Smoking Renal Artery Doppler Mid (R) 160.4/ cm/sec Distal (R) 38.6/ cm/sec Renal Aorta Ratio (R) 1.79 Segmental A. (R) 59.4/13.6 cm/sec RI: 0.77 Segmental A. Sup (R) 46.7/14.4 cm/sec Segmental A. Mid (R) 59.4/13.6 cm/sec Segmental A. Inf (R) 51.5/11.2 cm/sec Distal (L) 158.8/ cm/sec Renal Aorta Ratio (L) 1.77 Segmental A. (L) 39.9/10.0 cm/sec RI: 0.74 Segmental A. Sup (L) 39.0/10.0 cm/sec Segmental A. Mid (L) 25.7/11.2 cm/sec Renal Measurements Kidney Size (R) 8.1x6.2 cm Cortical Thickness (R) 0.8 cm Kidney Size (L) 9.1x5.3 cm Cortical Thickness (L) 1.0 cm Findings Study suggests no evidence of stenosis in the bilateral renal arteries. Proximal and mid left renal artery is not visualized. Bilateral renal atrophy and decreased cortical thickness seen suggestive of renal disease. Conclusion Study suggests no evidence of stenosis in the bilateral renal arteries. Proximal and mid left renal artery is not visualized. Bilateral renal atrophy and decreased cortical thickness seen suggestive of renal disease. Electronically signed by : Keenan Peterson MD 01/04/2021 17:24:03
--- NOTE | 2021-01-04 08:41 | HMH.ACPN2 ---
Internal Medicine - PN: Subj *Date: 01/04/21 *Time: 08:46 Interval history: Patient had 3 additional doses of Narcan last evening after which she became more alert and actually set up in the bed on her own. Breathing has been very regular with good O2 sats on the BiPAP. She has had some bradycardia but remains in a sinus rhythm. She continues with a Hector catheter. Patient easily aroused. She set up in the bed on her own for auscultation of her lungs. She denies chest pain, shortness of breath, and abdominal pain. She remains on BiPAP. Exam Vital signs and Labs for Last 24 Hours: Temp Pulse Resp BP Pulse Ox 97.7 F 62 20 144/81 H 100 01/04/21 08:00 01/04/21 06:00 01/04/21 02:00 01/04/21 06:00 01/04/21 06:00 Laboratory Results - last 24 hr 01/03/21 12:55: WBC 9.2, RBC 4.02 L, Hgb 10.5 L, Hct 32.0 L, MCV 79.6 L, MCH 26.2 L, MCHC 32.9, RDW 17.4, Plt Count 226, MPV 7.6, Neut % (Auto) 86.0 H, Lymph % (Auto) 8.6 L, [place] % (Auto) 3.9, Eos % (Auto) 0.8, Baso % (Auto) 0.8, Neut # (Auto) 7.9 H, Lymph # (Auto) 0.8, [place] # (Auto) 0.4, Eos # (Auto) 0.1, Baso # (Auto) 0.1, Total Counted 100, Neutrophils % (Manual) 94 H, Lymphocytes % (Manual) 5 L, Monocytes % (Manual) 1 L, Platelet Estimate Normal, RBC Morphology Normal, Poikilocytosis 1+, Anisocytosis 1+ 01/03/21 12:55: Sodium 141, Potassium 3.4 L, Chloride 105, Carbon Dioxide 25, Anion Gap 14.4, BUN 37 H, Creatinine 3.50 H, Estimated Creat Clear 18, Estimated GFR 14 L*, Est GFR ( Amer) 16 L*, Glucose 116 H, Calcium 9.3, Total Bilirubin 0.9, AST 28, ALT 15, Alkaline Phosphatase 109, Troponin I 0.09 H, NT-Pro-B Natriuret Pep 34807 H, Total Protein 8.0, Albumin 4.3, Globulin 3.7 H, Albumin/Globulin Ratio 1.2 01/03/21 14:45: POC Glucose 112 H 01/03/21 15:46: Troponin I 0.09 H 01/03/21 16:45: VBG pH 7.27 L, VBG pCO2 48.0, VBG pO2 107.1 H, VBG HCO3 21.6 L, VBG Total CO2 23.1, VBG O2 Saturation 97.4 H, VBG Base Excess -5.2 L 01/03/21 16:50: Urine Color Yellow, Urine Appearance Clear, Urine pH 6.0, Ur Specific [place] 1.025, Urine Protein 3+, Urine Glucose (UA) Negative, Urine Ketones Negative, Urine Blood 2+, Urine Nitrate Negative, Urine Bilirubin Negative, Urine Urobilinogen 1.0, Ur Leukocyte Esterase Negative, Urine RBC 5-10, Urine WBC None, Ur Squamous Epith Cells Occasional, Urine Bacteria None 01/03/21 16:57: Urine Opiates Screen Negative, Urine Methadone Screen Negative, Ur Barbituates Screen Negative, Ur Phencyclidine Scrn Negative, Ur Amphetamines Screen Negative, U Benzodiazepines Scrn Negative, Urine Cocaine Screen Negative, U Marijuana (THC) Screen Negative 01/03/21 17:13: Lactate 0.5 L 01/03/21 17:13: Procalcitonin 0.050 01/03/21 18:45: Troponin I 0.09 H 01/03/21 22:28: Troponin I 0.09 H 01/04/21 05:26: Sodium 140, Potassium 3.8, Chloride 107, Carbon Dioxide 24, Anion Gap 12.8, BUN 42 H, Creatinine 3.70 H, Estimated Creat Clear 20, Estimated GFR 13 L*, Est GFR ( Amer) 15 L*, Glucose 84 D, Calcium 8.5, Total Bilirubin 0.8, AST 30, ALT 12, Alkaline Phosphatase 92, Total Protein 7.0, Albumin 3.7 D, Globulin 3.3 H, Albumin/Globulin Ratio 1.1 01/04/21 06:27: WBC 11.8 H D, RBC 3.98 L, Hgb 10.4 L, Hct 32.2 L, MCV 81.0, MCH 26.0 L, MCHC 32.1, RDW 17.3, Plt Count 226, MPV 7.8, Neut % (Auto) 81.3 H, Lymph % (Auto) 11.2, [place] % (Auto) 5.9, Eos % (Auto) 0.8, Baso % (Auto) 0.7, Neut # (Auto) 9.6 H, Lymph # (Auto) 1.3, [place] # (Auto) 0.7, Eos # (Auto) 0.1, Baso # (Auto) 0.1 I & O for Last 24 hours: Intake & Output 01/01/21 01/02/21 01/03/21 01/04/21 11:59 11:59 11:59 11:59 Output Total 1200 / 1200 Balance -1200 / -1200 Weight 157 lb 3 oz Microbiology Reports for the Last 24 Hours: Microbiology 01/03/21 13:40 Nasopharyngeal Coronavirus COVID-19 PCR - Final - Constitutional no acute distress - *Routine Respiratory Exam Present: crackles (Left base with decreased breath sounds in the right base) - *Routine Cardiovascular Exam Present: RRR (Monito
[2021-01-04 09:08] LABS: Troponin I 0.09 ng/ml (0.00-0.034)
[2021-01-04 09:21] LABS: Chol/HDL Ratio 4.6 (1-3.5); Cholesterol 194 mg/dl (140-200); HDL Cholesterol 42 mg/dl (40-60); Triglycerides 94 mg/dl (30-150); VLDL Cholesterol 19 mg/dL (0-40)
[2021-01-04 09:31] LABS: Direct LDL Cholesterol 95.07 mg/dL (100-129)
--- NOTE | 2021-01-04 10:23 | HMH.PNCARD ---
Subjective Date: 01/04/21 Time: 10:00 Principal diagnosis: chf Interval history: This is a 55-year-old white female who presented to the emergency department here at [facility] with complaints of shortness of breath. The patient had a blood pressure of 236/157 on admission as well. During my exam yesterday the patient was unable to communicate any history with me and she was not answering any of my questions. The patient was very obtunded and unresponsive to most things. This morning she is awake and alert. She is able to answer all of my questions and follow all of my commands. She states that she is feeling much better today than she was yesterday when she was admitted. She states that she has not had any chest pain or pressure. She has only had shortness of breath. This is much better than it was when she came in yesterday. She still has associated orthopnea with her shortness of breath. She denies any lower extremity edema. She denies any fever, chills, nausea, vomiting, diarrhea. Exam Vital signs and Labs for Last 24 Hours: Temp Pulse Resp BP Pulse Ox 97.7 F 62 20 144/81 H 100 01/04/21 08:00 01/04/21 06:00 01/04/21 02:00 01/04/21 06:00 01/04/21 06:00 Laboratory Results - last 24 hr 01/03/21 12:55: WBC 9.2, RBC 4.02 L, Hgb 10.5 L, Hct 32.0 L, MCV 79.6 L, MCH 26.2 L, MCHC 32.9, RDW 17.4, Plt Count 226, MPV 7.6, Neut % (Auto) 86.0 H, Lymph % (Auto) 8.6 L, [place] % (Auto) 3.9, Eos % (Auto) 0.8, Baso % (Auto) 0.8, Neut # (Auto) 7.9 H, Lymph # (Auto) 0.8, [place] # (Auto) 0.4, Eos # (Auto) 0.1, Baso # (Auto) 0.1, Total Counted 100, Neutrophils % (Manual) 94 H, Lymphocytes % (Manual) 5 L, Monocytes % (Manual) 1 L, Platelet Estimate Normal, RBC Morphology Normal, Poikilocytosis 1+, Anisocytosis 1+ 01/03/21 12:55: Sodium 141, Potassium 3.4 L, Chloride 105, Carbon Dioxide 25, Anion Gap 14.4, BUN 37 H, Creatinine 3.50 H, Estimated Creat Clear 18, Estimated GFR 14 L*, Est GFR ( Amer) 16 L*, Glucose 116 H, Calcium 9.3, Total Bilirubin 0.9, AST 28, ALT 15, Alkaline Phosphatase 109, Troponin I 0.09 H, NT-Pro-B Natriuret Pep 45275 H, Total Protein 8.0, Albumin 4.3, Globulin 3.7 H, Albumin/Globulin Ratio 1.2 01/03/21 14:45: POC Glucose 112 H 01/03/21 15:46: Troponin I 0.09 H 01/03/21 16:45: VBG pH 7.27 L, VBG pCO2 48.0, VBG pO2 107.1 H, VBG HCO3 21.6 L, VBG Total CO2 23.1, VBG O2 Saturation 97.4 H, VBG Base Excess -5.2 L 01/03/21 16:50: Urine Color Yellow, Urine Appearance Clear, Urine pH 6.0, Ur Specific [place] 1.025, Urine Protein 3+, Urine Glucose (UA) Negative, Urine Ketones Negative, Urine Blood 2+, Urine Nitrate Negative, Urine Bilirubin Negative, Urine Urobilinogen 1.0, Ur Leukocyte Esterase Negative, Urine RBC 5-10, Urine WBC None, Ur Squamous Epith Cells Occasional, Urine Bacteria None 01/03/21 16:57: Urine Opiates Screen Negative, Urine Methadone Screen Negative, Ur Barbituates Screen Negative, Ur Phencyclidine Scrn Negative, Ur Amphetamines Screen Negative, U Benzodiazepines Scrn Negative, Urine Cocaine Screen Negative, U Marijuana (THC) Screen Negative 01/03/21 17:13: Lactate 0.5 L 01/03/21 17:13: Procalcitonin 0.050 01/03/21 18:45: Troponin I 0.09 H 01/03/21 22:28: Troponin I 0.09 H 01/04/21 05:26: Sodium 140, Potassium 3.8, Chloride 107, Carbon Dioxide 24, Anion Gap 12.8, BUN 42 H, Creatinine 3.70 H, Estimated Creat Clear 20, Estimated GFR 13 L*, Est GFR ( Amer) 15 L*, Glucose 84 D, Calcium 8.5, Total Bilirubin 0.8, AST 30, ALT 12, Alkaline Phosphatase 92, Total Protein 7.0, Albumin 3.7 D, Globulin 3.3 H, Albumin/Globulin Ratio 1.1 01/04/21 06:27: WBC 11.8 H D, RBC 3.98 L, Hgb 10.4 L, Hct 32.2 L, MCV 81.0, MCH 26.0 L, MCHC 32.1, RDW 17.3, Plt Count 226, MPV 7.8, Neut % (Auto) 81.3 H, Lymph % (Auto) 11.2, [place] % (Auto) 5.9, Eos % (Auto) 0.8, Baso % (Auto) 0.7, Neut # (Auto) 9.6 H, Lymph # (Auto) 1.3, [place] # (Auto) 0.7, Eos # (Auto) 0.1, Baso # (Auto) 0.1 01/04/21 06:27: Troponin I 0.09 H 01/04/21 06:27: Triglyc
--- NOTE | 2021-01-04 10:34 | PC.NURSE ---
Sputum induced. Pt has nonproductive cough. Encouraged pt to continue to cough. Specimen cup left at bedside
--- NOTE | 2021-01-04 14:22 | SW/DCPLANNER ---
I received a call from patients daughter (Ingris) regarding discharge plans and the need for placement for this patient. Daughter stated that patient currently resides with her but will need international account manager care placement at time of discharge. I explained to daughter that patient must be agreeable to placement. Daughter stated that if patient is not interested a homeless retirement would be the next option for this patient. Patients nurse (Logan) stated that patient may transfer according to Cardiology. I explained to daughter that if patient needs to transfer that the accepted facility would assist with placement once she is medically stable for discharge. If patient does NOT transfer I will begin searching for placement for this patient once medically stable for discharge. I will follow up with this patient and Dr Hart tomorrow morning unless patients transfers. I will also follow up with patients daughter tomorrow morning. I do have a message out to Dr Hart regarding the plan for this patient.
--- NOTE | 2021-01-04 15:10 | PC.NURSE ---
BP- 183/98, HR 60 nipride drip titrated to 0.5mcg/kg at this time
--- NOTE | 2021-01-04 16:37 | PC.NURSE ---
Patient has been pleasant and cooperative this shift, has been alert and oriented x4, was weaned off bipap this am, is currently on 2LNC and tolerating well, lungs sounds diminished in bl bases, c/o shortness of air once this shift and requested inhaler, contacted MD office and received order for duonebs, no further c/o soa, denies any cp, vital signs have remained stable, will continue to monitor.
[2021-01-05] VITALS (17 sets, daily range): BP systolic 120–220; BP diastolic 65–120; PULSE 50–84; RESP 17–25; TEMP 36.5–36.9; O2SAT 92–100; BMI 24.5
--- NOTE | 2021-01-05 06:10 | PC.NURSE ---
pt has had no acute changes. alert and oriented. o2 remains above 90% currently on 2LNC. while sleeping pt had to be increased to 3LNC to maintain above 90%. bp noted to be elevated and md was notified. one time dose of coreg given. bp curently 135/76. pt remains on telemetry and shows NSR with ST depression to bradycardia w/ ST depression. md is aware that HR did decrease to to 40's while sleeping but would return to 70's. call light in reach. no complaints voiced. natalya draining. will continue to monitor
--- NOTE | 2021-01-05 08:45 | HMH.ACPN2 ---
Internal Medicine - PN: Subj *Date: 01/05/21 *Time: 08:45 Interval history: Patient states she is feeling better today. She denies any pain and states she slept well last night. She was able to tolerate a small amount of food.Renal artery duplex showed no evidence of stenosis. There was bilateral renal atrophy and decreased cortical thickness suggestive of renal disease. Exam Vital signs and Labs for Last 24 Hours: Temp Pulse Resp BP Pulse Ox 98.1 F 59 L 17 135/76 93 L 01/05/21 04:00 01/05/21 06:00 01/05/21 06:00 01/05/21 06:00 01/05/21 06:00 Laboratory Results - last 24 hr 01/04/21 06:27: Troponin I 0.09 H 01/04/21 06:27: Triglycerides 94, Cholesterol 194, LDL Cholesterol Direct 95.07 L, VLDL Cholesterol 19, HDL Cholesterol 42, Cholesterol/HDL Ratio 4.6 H I & O for Last 24 hours: Intake & Output 01/02/21 01/03/21 01/04/21 01/05/21 11:59 11:59 11:59 11:59 Intake Total 240 / 240 1020 / 1020 Output Total 1200 / 1200 2075 / 2075 Balance -960 / -960 -1055 / -1055 Weight 157 lb 3 oz 156 lb 8.451 oz Microbiology Reports for the Last 24 Hours: Microbiology 01/04/21 14:57 Sputum - Expectorated Sputum Gram Stain - Final - Constitutional no acute distress - *Routine Respiratory Exam Present: CTA bilaterally - *Routine Cardiovascular Exam Present: RRR - *Routine Abdominal Exam Present: soft, normoactive bowel sounds. Absent: tenderness - *Routine Extremities Exam Absent: cyanosis, clubbing, edema - *Routine Skin Exam Present: warm. Absent: rash - *Routine Neurological Exam Present: alert, oriented X3 Assessment and Plan (1) Acute CHF Status: Acute Category: Medical Code(s): I50.9 - Heart failure, unspecified (2) SOB (shortness of breath) Status: Acute Category: Medical Code(s): R06.02 - Shortness of breath (3) Heart valve replaced Status: Acute Category: Surgical Code(s): Z95.2 - Presence of prosthetic heart valve (4) History of coronary artery bypass graft Problem details: 05/11/2020 VILLAGOMEZ to LAD 05/11/2020-Aortic Valve replacement with bioprosthestic valve 05/11/2020 Tricuspid valve annuloplasty Status: Acute Category: Surgical Code(s): Z95.1 - Presence of aortocoronary bypass graft (5) Noncompliance Status: Acute Category: Medical Code(s): Z91.19 - Patient's noncompliance with other medical treatment and regimen (6) CAD (coronary artery disease) Status: Chronic Qualifiers: Coronary Disease-Associated Artery/Lesion type: bypass graft [place] vs. transplanted heart: [place] heart Associated angina: without angina Qualified Code(s): I25.810 - Atherosclerosis of coronary artery bypass graft(s) without angina pectoris Category: Medical Code(s): I25.10 - Atherosclerotic heart disease of [place] coronary artery without angina pectoris (7) Acute kidney injury Status: Resolved Category: Medical Code(s): N17.9 - Acute kidney failure, unspecified (8) Hypertensive urgency, malignant Status: Resolved Category: Medical Code(s): I16.0 - Hypertensive urgency (9) Hypoxia Status: Acute Category: Medical Code(s): R09.02 - Hypoxemia (10) Bradycardia Status: Acute Category: Medical Code(s): R00.1 - Bradycardia, unspecified (11) Hypertension Status: Acute Category: Medical Code(s): I10 - Essential (primary) hypertension (12) Chronic kidney disease Status: Chronic Category: Medical Code(s): N18.9 - Chronic kidney disease, unspecified - Assessment and plan all Dx Assessment and Plan for all problems:: Still awaiting transfer to . We will recheck labs this morning. Cultures are still pending.
[2021-01-05 09:25] LABS: Basophils # 0.1 K/mm3 (0-0.2); Basophils % 0.6 % (0.1-2.0); Eosinophils # 0.2 K/mm3 (0.0-0.4); Eosinophils % 1.8 % (0.1-12.0); Hematocrit 30.8 % (37.0-47.0); Hemoglobin 9.9 g/dL (12.2-16.2); Lymphocytes # 1.2 K/mm3 (0.7-4.5); Lymphocytes % 14.1 % (10-50); Mean Corpuscular HGB Conc 32.2 g/dL (31.8-35.4); Mean Corpuscular Hemoglobin 25.6 pg (27.0-31.2); Mean Corpuscular Volume 79.5 fl (81-99); Mean Platelet Volume 8.1 fl (7.4-10.4); Monocytes # 0.5 K/mm3 (0.1-1.0); Monocytes % 5.7 % (1.7-9.3); Neutrophils # 6.7 K/mm3 (1.8-7.8); Neutrophils % 77.8 % (37.0-80.0); Platelet Count 210 K/mm3 (142-424); Red Blood Count 3.87 M/mm3 (4.20-5.40); Red Cell Distribution Width 17.4 % (11.5-17.5); White Blood Count 8.6 K/mm3 (4.8-10.8)
--- NOTE | 2021-01-05 09:28 | HMH.PNCARD ---
Subjective Date: 01/05/21 Time: 09:15 Principal diagnosis: chf Interval history: This is a 55-year-old white female who presented to the emergency department with shortness of breath. The patient is being treated for an acute exacerbation of congestive heart failure. This morning she states that her shortness of breath is better but is still present. She states that it is a little worse when she moves around but she has not been up out of the bed walking. She states that her shortness of breath is also associated with orthopnea. She denies any lower extremity edema. She denies any chest pain or pressure. She denies any fever, chills, nausea, vomiting or diarrhea. Exam Vital signs and Labs for Last 24 Hours: Temp Pulse Resp BP Pulse Ox 98.1 F 59 L 17 135/76 93 L 01/05/21 04:00 01/05/21 06:00 01/05/21 06:00 01/05/21 06:00 01/05/21 06:00 Laboratory Results - last 24 hr 01/04/21 06:27: Triglycerides 94, Cholesterol 194, LDL Cholesterol Direct 95.07 L, VLDL Cholesterol 19, HDL Cholesterol 42, Cholesterol/HDL Ratio 4.6 H I & O for Last 24 hours: Intake & Output 01/02/21 01/03/21 01/04/21 01/05/21 23:59 23:59 23:59 23:59 Intake Total 1020 / 1260 240 / 240 Output Total 2400 / 2400 875 / 875 Balance -1380 / -1140 -635 / -635 Weight 160 lb 5 oz 156 lb 8.451 oz 156 lb 8.451 oz Microbiology Reports for the Last 24 Hours: Microbiology 01/04/21 14:57 Sputum - Expectorated Sputum Gram Stain - Final Narrative: Telemetry strip is sinus rhythm. Renal duplex shows: Study suggests no evidence of stenosis in the bilateral renal arteries. Proximal and mid left renal artery is not visualized. Bilateral renal atrophy and decreased cortical thickness seen suggestive of renal disease. - Constitutional no acute distress, average body habitus - *Routine HEENT Exam Head: Present: normocephalic, atraumatic Eye: Present: EOMI, PERRL ENT: Present: mucous membranes moist - *Routine Neck Exam Present: supple, full ROM, normal carotid upstroke. Absent: JVD, carotid bruit, lymphadenopathy - *Routine Respiratory Exam Present: decreased breath sounds, wheezes - *Routine Cardiovascular Exam Present: RRR, Normal S1, Normal S2, murmur. Absent: gallop - *Routine Abdominal Exam Present: soft, normoactive bowel sounds. Absent: tenderness, distended - *Routine Extremities Exam Present: full ROM, pulses intact, normal capillary refill. Absent: cyanosis, clubbing, edema - *Routine Skin Exam Present: intact, warm. Absent: erythema, rash - *Routine Neurological Exam Present: alert, oriented X3, CN II-XII intact. Absent: sensory deficit, motor deficit Progress Note: A&P (1) Acute CHF Status: Acute (2) SOB (shortness of breath) Status: Acute (3) Heart valve replaced Status: Acute (4) History of coronary artery bypass graft Problem details: 05/11/2020 VILLAGOMEZ to LAD 05/11/2020-Aortic Valve replacement with bioprosthestic valve 05/11/2020 Tricuspid valve annuloplasty Status: Acute (5) Noncompliance Status: Acute (6) CAD (coronary artery disease) Status: Chronic (7) Acute kidney injury Status: Resolved (8) Hypertensive urgency, malignant Status: Resolved (9) Hypoxia Status: Acute (10) Bradycardia Status: Acute (11) Hypertension Status: Acute (12) Chronic kidney disease Status: Chronic Assessment and Plan for All Diagnoses:: Plan: 1. The patient was admitted to the hospital for an acute exacerbation of congestive heart failure. She was given 200 mg of IV Lasix the day she was admitted but her creatinine went up to 3.70 and her GFR dropped down to 13. The patient needs to be transferred to a tertiary facility for dialysis. She is in overt congestive heart failure with bilateral pleural effusions that will require aggressive diuresis but with her worsening kidney function she cannot be diuresed without continuing to worsen her kidney fu
[2021-01-05 09:35] LABS: Chloride 105 mmol/L (98-107); Sodium 141 mmol/L (136-145)
[2021-01-05 09:36] LABS: Potassium 3.1 mmoL/L (3.5-5.1)
[2021-01-05 09:38] LABS: Alanine Aminotransferase 10 U/L (12-78); Alkaline Phosphatase 90 U/L (38-126); Aspartate Amino Transferase 23 U/L (14-36); Bilirubin,Total 0.4 mg/dl (0.2-1.3); Blood Urea Nitrogen 40 mg/dl (7-17); Carbon Dioxide 28 mmol/L (22.0-30.0); Creatinine Clearance Estimated 20 mL/min (50-200); Estimated Glomerular Filt Rate 14 ml/min (>60); GFR (African American) 16 ML/MIN (>60)
[2021-01-05 09:39] LABS: Albumin Level 3.4 g/dl (3.5-5.0); Albumin/Globulin Ratio 1.1 (1.1-1.8); Calcium 8.6 mg/dl (8.4-10.2); Globulin 3.2 g/dL (1.3-3.2); Glucose 89 mg/dl (74-100); Total Protein,Serum 6.6 g/dl (6.3-8.2)
[2021-01-05 09:42] LABS: Anion Gap 11.1 mEq/L (5-15)
--- NOTE | 2021-01-05 09:43 | PC.NURSE ---
HR in the 30s while asleep. Yvonne Agudelo APRN @ [facility]. She ordered NOT to give any beta blockers.
--- NOTE | 2021-01-05 09:46 | PC.NURSE ---
Dr. Hart notified that Cr is 3.50
[2021-01-06] VITALS (14 sets, daily range): BP systolic 121–169; BP diastolic 76–99; PULSE 41–83; RESP 20–28; TEMP 36.7–36.8; O2SAT 93–100; BMI 24.6
--- NOTE | 2021-01-06 00:44 | PC.NURSE ---
2200 o2 decreased to to 2 l nc for sats sustaining 100%.
--- NOTE | 2021-01-06 05:27 | PC.NURSE ---
patient has had uneventful night. hoang to gravity draining clear,yellow urine. diuressed well this shift. blood pressure has gradually increased throughout the night. phototypesetting equipment monitor in the 70-80s sr with brief periods of bradycardia dropping down to 27. episodes lasting less than six seconds at a time. patient may repeat several of these short episodes in a few minutes then return to 70s again for several hours. patient has been asleep each time episode has happened. blood pressures have remained stable.
[2021-01-06 06:13] LABS: Chloride 100 mmol/L (98-107); Sodium 140 mmol/L (136-145)
[2021-01-06 06:16] LABS: Anion Gap 9.8 mEq/L (5-15); Blood Urea Nitrogen 41 mg/dl (7-17); Calcium 8.8 mg/dl (8.4-10.2); Carbon Dioxide 33 mmol/L (22.0-30.0); Creatinine Clearance Estimated 22 mL/min (50-200); Estimated Glomerular Filt Rate 15 ml/min (>60); GFR (African American) 18 ML/MIN (>60); Glucose 112 mg/dl (74-100)
[2021-01-06 06:37] LABS: Potassium 2.8 mmoL/L (3.5-5.1)
--- NOTE | 2021-01-06 08:53 | HMH.ACPN2 ---
Internal Medicine - PN: Subj *Date: 01/06/21 *Time: 08:53 Interval history: Patient states she is feeling about the same today. Her back is hurting from laying so much in the bed. She has not been out of the bed. She denies any other pain. She states she was able to rest a little bit better last night and she did eat some breakfast this morning. Exam Vital signs and Labs for Last 24 Hours: Temp Pulse Resp BP Pulse Ox 98.1 F 67 23 164/97 H 99 01/06/21 04:00 01/06/21 06:00 01/06/21 06:00 01/06/21 06:00 01/06/21 06:00 Laboratory Results - last 24 hr 01/05/21 08:55: WBC 8.6 D, RBC 3.87 L, Hgb 9.9 L, Hct 30.8 L, MCV 79.5 L, MCH 25.6 L, MCHC 32.2, RDW 17.4, Plt Count 210, MPV 8.1, Neut % (Auto) 77.8, Lymph % (Auto) 14.1, [place] % (Auto) 5.7, Eos % (Auto) 1.8, Baso % (Auto) 0.6, Neut # (Auto) 6.7, Lymph # (Auto) 1.2, [place] # (Auto) 0.5, Eos # (Auto) 0.2, Baso # (Auto) 0.1 01/05/21 08:55: Sodium 141, Potassium 3.1 L, Chloride 105, Carbon Dioxide 28, Anion Gap 11.1, BUN 40 H, Creatinine 3.50 H, Estimated Creat Clear 20, Estimated GFR 14 L*, Est GFR ( Amer) 16 L*, Glucose 89, Calcium 8.6, Total Bilirubin 0.4, AST 23, ALT 10 L, Alkaline Phosphatase 90, Total Protein 6.6, Albumin 3.4 L, Globulin 3.2, Albumin/Globulin Ratio 1.1 01/06/21 05:27: Sodium 140, Potassium 2.8 L*, Chloride 100, Carbon Dioxide 33 H, Anion Gap 9.8, BUN 41 H, Creatinine 3.30 H, Estimated Creat Clear 22, Estimated GFR 15 L*, Est GFR ( Amer) 18 L*, Glucose 112 H D, Calcium 8.8 I & O for Last 24 hours: Intake & Output 01/03/21 01/04/21 01/05/21 01/06/21 11:59 11:59 11:59 11:59 Intake Total 240 / 240 1260 / 1260 1372 / 1372 Output Total 1200 / 1200 2075 / 2075 3700 / 3700 Balance -960 / -960 -815 / -815 -2328 / -2328 Weight 157 lb 3 oz 156 lb 8.451 oz 157 lb 1.305 oz Microbiology Reports for the Last 24 Hours: Microbiology 01/04/21 14:57 Sputum - Expectorated Sputum Gram Stain - Final 01/04/21 14:57 Sputum - Expectorated Sputum Sputum Culture - Preliminary 01/03/21 17:13 Blood - Other Blood Culture - Preliminary NO GROWTH AFTER 48 HOURS 01/03/21 17:13 Blood - Other Blood Culture - Preliminary NO GROWTH AFTER 48 HOURS - Constitutional no acute distress - *Routine Respiratory Exam Present: CTA bilaterally - *Routine Cardiovascular Exam Present: RRR - *Routine Abdominal Exam Present: soft, normoactive bowel sounds. Absent: tenderness - *Routine Extremities Exam Absent: cyanosis, clubbing, edema - *Routine Skin Exam Present: warm. Absent: rash - *Routine Neurological Exam Present: alert, oriented X3 Assessment and Plan (1) Acute CHF Status: Acute Category: Medical Code(s): I50.9 - Heart failure, unspecified (2) SOB (shortness of breath) Status: Acute Category: Medical Code(s): R06.02 - Shortness of breath (3) Heart valve replaced Status: Acute Category: Surgical Code(s): Z95.2 - Presence of prosthetic heart valve (4) History of coronary artery bypass graft Problem details: 05/11/2020 VILLAGOMEZ to LAD 05/11/2020-Aortic Valve replacement with bioprosthestic valve 05/11/2020 Tricuspid valve annuloplasty Status: Acute Category: Surgical Code(s): Z95.1 - Presence of aortocoronary bypass graft (5) Noncompliance Status: Acute Category: Medical Code(s): Z91.19 - Patient's noncompliance with other medical treatment and regimen (6) CAD (coronary artery disease) Status: Chronic Qualifiers: Coronary Disease-Associated Artery/Lesion type: bypass graft [place] vs. transplanted heart: [place] heart Associated angina: without angina Qualified Code(s): I25.810 - Atherosclerosis of coronary artery bypass graft(s) without angina pectoris Category: Medical Code(s): I25.10 - Atherosclerotic heart disease of [place] coronary artery without angina pectoris (7) Acute kidney injury Status: Resolved C
--- NOTE | 2021-01-06 12:02 | PC.NURSE ---
received call from [facility] capacity command (Elva). She reports that pt is still on their waiting list and that there are no beds available. Asked where pt was on the waiting list and she reports that pt will not get a bed today. Updated her with current vitals and labs.
--- NOTE | 2021-01-06 14:30 | DIET.NUTRFU ---
Pt with severe protein calorie malnutrition rt CHF/CKD. PO intakes 50% + BID energy/protein supplements. Weight has remained stable. K low today. Pt has been provided with diet education/counseling for malnutrition with CHF and CKD. Pt encouraged to request additional supplements/low sodium snacks as desired. Continuing to monitor.
[2021-01-07] VITALS (15 sets, daily range): BP systolic 132–150; BP diastolic 77–99; PULSE 63–91; RESP 16–24; TEMP 36.4–36.8; O2SAT 95–100; BMI 24.3
--- NOTE | 2021-01-07 05:37 | PC.NURSE ---
patient has had uneventful shift. patient has had no episode of bradycardia this shift. no complaints of pain, nausea, vomiting soa or diarhea. patient unsteady on feet, admits to becoming lightheaded with position changes when ambulating to restroom. patient informed to be sure to call for assistance when going. patient remains on 2 l nc with sats greater than 95%.
[2021-01-07 08:22] LABS: Basophils # 0.1 K/mm3 (0-0.2); Basophils % 0.8 % (0.1-2.0); Eosinophils # 0.3 K/mm3 (0.0-0.4); Hematocrit 37.8 % (37.0-47.0); Hemoglobin 12.4 g/dL (12.2-16.2); Lymphocytes # 1.4 K/mm3 (0.7-4.5); Lymphocytes % 12.9 % (10-50); Mean Corpuscular HGB Conc 32.8 g/dL (31.8-35.4); Mean Corpuscular Hemoglobin 25.8 pg (27.0-31.2); Mean Corpuscular Volume 78.6 fl (81-99); Mean Platelet Volume 7.5 fl (7.4-10.4); Monocytes # 0.6 K/mm3 (0.1-1.0); Monocytes % 5.4 % (1.7-9.3); Neutrophils # 8.3 K/mm3 (1.8-7.8); Neutrophils % 77.9 % (37.0-80.0); Platelet Count 246 K/mm3 (142-424); Red Blood Count 4.81 M/mm3 (4.20-5.40); White Blood Count 10.7 K/mm3 (4.8-10.8)
[2021-01-07 08:28] LABS: Chloride 92 mmol/L (98-107); Potassium 3.4 mmoL/L (3.5-5.1); Sodium 141 mmol/L (136-145)
[2021-01-07 08:31] LABS: Blood Urea Nitrogen 47 mg/dl (7-17); Carbon Dioxide 37 mmol/L (22.0-30.0); Creatinine Clearance Estimated 18 mL/min (50-200); Estimated Glomerular Filt Rate 12 ml/min (>60); GFR (African American) 14 ML/MIN (>60); Glucose 150 mg/dl (74-100)
[2021-01-07 08:32] LABS: Anion Gap 15.4 mEq/L (5-15)
--- NOTE | 2021-01-07 08:40 | HMH.ACPN2 ---
Internal Medicine - PN: Subj *Date: 01/07/21 *Time: 08:40 Interval history: Patient has no new complaints today. She states she is sore from sitting in the bed for so long. She was able to rest last night and ate a small amount of breakfast this morning. Exam Vital signs and Labs for Last 24 Hours: Temp Pulse Resp BP Pulse Ox 98.0 F 76 18 136/87 100 01/07/21 07:49 01/07/21 08:15 01/07/21 08:00 01/07/21 08:00 01/07/21 08:15 Laboratory Results - last 24 hr 01/07/21 08:12: WBC 10.7, RBC 4.81, Hgb 12.4, Hct 37.8, MCV 78.6 L, MCH 25.8 L, MCHC 32.8, RDW 17.0, Plt Count 246, MPV 7.5, Neut % (Auto) 77.9, Lymph % (Auto) 12.9, [place] % (Auto) 5.4, Eos % (Auto) 3.0, Baso % (Auto) 0.8, Neut # (Auto) 8.3 H, Lymph # (Auto) 1.4, [place] # (Auto) 0.6, Eos # (Auto) 0.3, Baso # (Auto) 0.1 01/07/21 08:12: Sodium 141, Potassium 3.4 L D, Chloride 92 L I & O for Last 24 hours: Intake & Output 01/04/21 01/05/21 01/06/21 01/07/21 11:59 11:59 11:59 11:59 Intake Total 240 / 240 1260 / 1260 1852 / 1852 1320 / 1320 Output Total 1200 / 1200 2075 / 2075 4800 / 4800 Balance -960 / -960 -815 / -815 -2948 / -2948 1320 / 1320 Weight 157 lb 3 oz 156 lb 8.451 oz 157 lb 1.305 oz Microbiology Reports for the Last 24 Hours: Microbiology 01/04/21 14:57 Sputum - Expectorated Sputum Gram Stain - Final 01/04/21 14:57 Sputum - Expectorated Sputum Sputum Culture - Final Normal Respiratory Yoselin - Constitutional no acute distress - *Routine Respiratory Exam Present: CTA bilaterally - *Routine Cardiovascular Exam Present: RRR - *Routine Abdominal Exam Present: soft, normoactive bowel sounds. Absent: tenderness - *Routine Extremities Exam Absent: cyanosis, clubbing, edema - *Routine Skin Exam Present: warm. Absent: rash - *Routine Neurological Exam Present: alert, oriented X3 Assessment and Plan (1) Acute CHF Status: Acute Category: Medical Code(s): I50.9 - Heart failure, unspecified (2) SOB (shortness of breath) Status: Acute Category: Medical Code(s): R06.02 - Shortness of breath (3) Heart valve replaced Status: Acute Category: Surgical Code(s): Z95.2 - Presence of prosthetic heart valve (4) History of coronary artery bypass graft Problem details: 05/11/2020 VILLAGOMEZ to LAD 05/11/2020-Aortic Valve replacement with bioprosthestic valve 05/11/2020 Tricuspid valve annuloplasty Status: Acute Category: Surgical Code(s): Z95.1 - Presence of aortocoronary bypass graft (5) Noncompliance Status: Acute Category: Medical Code(s): Z91.19 - Patient's noncompliance with other medical treatment and regimen (6) CAD (coronary artery disease) Status: Chronic Qualifiers: Coronary Disease-Associated Artery/Lesion type: bypass graft [place] vs. transplanted heart: [place] heart Associated angina: without angina Qualified Code(s): I25.810 - Atherosclerosis of coronary artery bypass graft(s) without angina pectoris Category: Medical Code(s): I25.10 - Atherosclerotic heart disease of [place] coronary artery without angina pectoris (7) Acute kidney injury Status: Resolved Category: Medical Code(s): N17.9 - Acute kidney failure, unspecified (8) Hypertensive urgency, malignant Status: Resolved Category: Medical Code(s): I16.0 - Hypertensive urgency (9) Hypoxia Status: Acute Category: Medical Code(s): R09.02 - Hypoxemia (10) Bradycardia Status: Acute Category: Medical Code(s): R00.1 - Bradycardia, unspecified (11) Hypertension Status: Acute Category: Medical Code(s): I10 - Essential (primary) hypertension (12) Chronic kidney disease Status: Chronic Category: Medical Code(s): N18.9 - Chronic kidney disease, unspecified - Assessment and plan all Dx Assessment and Plan for all problems:: Dr. Hart made some medication adjustments yesterday. We will recheck labs this morning.
[2021-01-07 08:53] LABS: Calcium 9.9 mg/dl (8.4-10.2)
--- NOTE | 2021-01-07 09:30 | HMH.ACPN ---
Internal Medicine - PN: Subj *Date: 01/07/21 *Time: 09:30 Exam Vital signs and Labs for Last 24 Hours: Temp Pulse Resp BP Pulse Ox 98.0 F 76 18 136/87 100 01/07/21 07:49 01/07/21 08:15 01/07/21 08:00 01/07/21 08:00 01/07/21 08:15 Laboratory Results - last 24 hr 01/07/21 08:12: WBC 10.7, RBC 4.81, Hgb 12.4, Hct 37.8, MCV 78.6 L, MCH 25.8 L, MCHC 32.8, RDW 17.0, Plt Count 246, MPV 7.5, Neut % (Auto) 77.9, Lymph % (Auto) 12.9, [place] % (Auto) 5.4, Eos % (Auto) 3.0, Baso % (Auto) 0.8, Neut # (Auto) 8.3 H, Lymph # (Auto) 1.4, [place] # (Auto) 0.6, Eos # (Auto) 0.3, Baso # (Auto) 0.1 01/07/21 08:12: Sodium 141, Potassium 3.4 L D, Chloride 92 L, Carbon Dioxide 37 H, Anion Gap 15.4 H, BUN 47 H, Creatinine 4.00 H D, Estimated Creat Clear 18, Estimated GFR 12 L*, Est GFR ( Amer) 14 L* D, Glucose 150 H, Calcium 9.9 D I & O for Last 24 hours: Intake & Output 01/04/21 01/05/21 01/06/21 01/07/21 23:59 23:59 23:59 23:59 Intake Total 1020 / 1260 1260 / 1260 1911 / 191 480 / 480 Output Total 2400 / 2400 2775 / 2775 2900 / 2900 Balance -1380 / -1140 -1515 / -1515 -988 / -988 480 / 480 Weight 71 kg 71 kg 71.251 kg 70.4 kg Microbiology Reports for the Last 24 Hours: Microbiology 01/04/21 14:57 Sputum - Expectorated Sputum Gram Stain - Final 01/04/21 14:57 Sputum - Expectorated Sputum Sputum Culture - Final Normal Respiratory Yoselin Assessment and Plan (1) Acute CHF Status: Acute Category: Medical Code(s): I50.9 - Heart failure, unspecified (2) SOB (shortness of breath) Status: Acute Category: Medical Code(s): R06.02 - Shortness of breath (3) Heart valve replaced Status: Acute Category: Surgical Code(s): Z95.2 - Presence of prosthetic heart valve (4) History of coronary artery bypass graft Problem details: 05/11/2020 VILLAGOMEZ to LAD 05/11/2020-Aortic Valve replacement with bioprosthestic valve 05/11/2020 Tricuspid valve annuloplasty Status: Acute Category: Surgical Code(s): Z95.1 - Presence of aortocoronary bypass graft (5) Noncompliance Status: Acute Category: Medical Code(s): Z91.19 - Patient's noncompliance with other medical treatment and regimen (6) CAD (coronary artery disease) Status: Chronic Qualifiers: Coronary Disease-Associated Artery/Lesion type: bypass graft [place] vs. transplanted heart: [place] heart Associated angina: without angina Qualified Code(s): I25.810 - Atherosclerosis of coronary artery bypass graft(s) without angina pectoris Category: Medical Code(s): I25.10 - Atherosclerotic heart disease of [place] coronary artery without angina pectoris (7) Acute kidney injury Status: Resolved Category: Medical Code(s): N17.9 - Acute kidney failure, unspecified (8) Hypertensive urgency, malignant Status: Resolved Category: Medical Code(s): I16.0 - Hypertensive urgency (9) Hypoxia Status: Acute Category: Medical Code(s): R09.02 - Hypoxemia (10) Bradycardia Status: Acute Category: Medical Code(s): R00.1 - Bradycardia, unspecified (11) Hypertension Status: Acute Category: Medical Code(s): I10 - Essential (primary) hypertension (12) Chronic kidney disease Status: Chronic Category: Medical Code(s): N18.9 - Chronic kidney disease, unspecified The patient's infection will respond to the chosen ABx?: Yes Is the patient receiving the right drug, dose, and route?: Yes Could a more targeted ABx be ordered?: No
--- NOTE | 2021-01-07 10:52 | PC.NURSE ---
Spoke to Dileep @ [facility], no bed available @ this time
--- NOTE | 2021-01-07 16:36 | PC.NURSE ---
No acute changes. Remains on 2 L O2 per cannula, no s/s of resp distress. Has requested a duoneb twice this shift for SOA. Lungs noted to have crackles in L lower lobe. HR regular, sinus on tely. Abdomen soft, non-tender w/ active BS in all quads. No BM this shift. Voiding w/o difficulty. Skin intact. Pt sitting up in recliner currently, tolerates activity well. Denies pain. No needs voiced. Call jaime w/in reach.
--- NOTE | 2021-01-07 17:56 | PC.NURSE ---
[facility] called @ this time w/ bed assignment, pt will be going to [facility], room #733. Report will be called to [phone]
--- NOTE | 2021-01-07 18:09 | PC.NURSE ---
1806 - Spoke w/ Dr. Magaña, made aware of transfer to [facility]
--- NOTE | 2021-01-07 18:38 | PC.NURSE ---
Addendum entered by Janett Desir RN 01/07/21 18:43: C MILAGRO Cardenas states that [facility] personnel are in ED @ this time. She is to pass on to them of need for transfer. Original Note: Report called to Jacinda Woods [facility] @ 1820 Attempted to notify [facility] of transfer @ 1841, no answer.
--- NOTE | 2021-01-07 18:47 | PC.NURSE ---
Attempted to contact pt's daughter about transfer for pt, # has been disconnected. Pt is to speak to daughter and updated on POC.
--- NOTE | 2021-01-07 22:24 | PC.NURSE ---
Pt left floor via stretcher per [facility] at [id number]
--- NOTE | 2021-01-09 22:18 | HMH.DCSUM ---
General - General Admission date:: 01/03/21 Discharge date: 01/07/21 HPI HPI: At this time nformation is obtained from documentation from the ER and by cardiology. Patient apparently presented to the emergency room with shortness of breath and chest tightness. She was stable on arrival. Blood pressure was noted to be 238/161. She demonstrated a prolonged expiratory phase with her breathing and with wheezes. The concern was for congestive heart failure, hypertensive urgency, and fluid overload. She had an elevated BUN of 37 and creatinine of 3.6 with which was similar to her previous renal function. BNP was elevated at 20,000. Chest x-ray showed bilateral pleural effusions and possible lower lobe infiltrate. White count was 9000. Gentle Hydration was initiated and then she was given 40 of Lasix IV. She was given carvedilol 25 mg, and 60 mg amlodipine. After being seen by cardiology IV fluids were discontinued and she was given a total of 200mg of Lasix IV. She was also started on Rocephin and Zithromax. Past medical history includes: Valvular heart disease with valvular surgery at the [facility] last year, congestive heart failure, hypertension, renal insufficiency.. She has not followed up with . She does not have a primary care physician. Patient was also seen by cardiology in the emergency room with the following assessment and plan: 1. Patient presented to the emergency department with complaints of shortness of breath. She was found to have a BNP of 20,000 and an elevated troponin at 0.09. Her creatinine is also elevated at 3.50. The patient is in acute CHF. We will give her Lasix 160 mg IV x1 dose now. 2. We will get an echocardiogram to evaluate her LV function. The EF is around 40%. 3. Stop carvedilol and nifedipine. 4. Patient has a history of CABG with a VILLAGOMEZ to the LAD. She does have a slight elevation in her troponin. May consider left cardiac catheterization once her renal function has improved. But for now we will hold off on this because of her acute renal failure. 5. The patient came in with a malignantly elevated blood pressure. She was given her home medications and her blood pressure did go down to a normal range. The patient is very noncompliant and has not been taking her medicines. But for now we need to stop her beta-jamel and calcium channel jamel because she is in acute CHF. 6. We will get a renal duplex secondary to her malignantly elevated blood pressure. 7. LDL goal is less than 55. We will get a lipid panel. 8. If the patient becomes hypotensive with Lasix, she will need to be started on a Levophed drip. 9. Stop IV fluids. She is in acute failure needs diuresis. 10. Further recommendations were made pending the patient's response to treatment. Upon arrival to her room on the medical floor patient became less responsive to the point she became obtunded. Body temperature was found to be 95. She was placed on the bear hugger. Heart rate had gradually dropped and actually was in the 40s to 60 range without ectopy. Blood pressure also dropped into the 90s and up to 100. ABGs were shown to have a metabolic acidosis. Respiratory effort became irregular and she had circumoral cyanosis as well as discolored hands and fingernails. O2 sats dropped into the 80s. She was placed on BiPAP with improvement of respiratory effort and her color. She continued to have good peripheral pulses. Repeat EKG showed a possible anterior infarct. Repeat troponin I's were initiated. She did have some urinary output. She had 1 dose of Narcan with no response. She is moved to stepdown for closer monitoring. She did have some movement of her extremities and did change her position at one time. She did not respond to her name but did try to open her eyes. Hospital Course Hospital Course: The patient was moved to stepdown. Her blood pressure stabilized. Her vital signs and urine output wer
== END 2021-01-07 21:55 | disposition short-term general hospital (02) | DRG 291 ==
LOC: ER 15:26 → 2ND 01-04 07:12
PROVIDERS: Family Medicine; Nurse Practitioner Family; Physician Assistant; Admitting Provider Family Medicine; Emergency Provider Emergency Medicine; Visit Provider Family Medicine
DX: I13.2 Hypertensive heart and chronic kidney disease with heart failure and with stage 5 chronic kidney disease, or end stage renal disease (principal); J96.22 Acute and chronic respiratory failure with hypercapnia; N17.9 Acute kidney failure, unspecified; I50.22 Chronic systolic (congestive) heart failure; N18.5 Chronic kidney disease, stage 5; E87.2 Acidosis; Z95.1 Presence of aortocoronary bypass graft; I25.10 Atherosclerotic heart disease of native coronary artery without angina pectoris; Z95.2 Presence of prosthetic heart valve; R00.1 Bradycardia, unspecified; I16.0 Hypertensive urgency; Z91.14 Patient's other noncompliance with medication regimen; Z87.891 Personal history of nicotine dependence; M19.90 Unspecified osteoarthritis, unspecified site
CPT/HCPCS: 36415; 70450; 71045; 80048; 80053; 80061; 80305; 81001; 82803; 82962; 83605; 83880; 84145; 84484; 85007; 85025; 87040; 87070; 87205; 93005; 93306; 93976; 94640; 94660; 94760; 94761; 96365; 96367; 96375; 99284; J0456; J2310; U0003

== ENCOUNTER → 2021-06-21 08:07 | Outpatient (CLI) | payer MEDICAID, SELFPAY ==
--- NOTE | 2021-06-21 | CA_ITS ---
APPROVED REPORT Exam: Pharmacologic Technologist: Kristin Mercer Ht: 5 ft 4 in Wt: 183 lbs BSA: 1.88 m2 HR: 56 bpm BP: 145/69 mmHg Indications: Angina, Shortness of Air, Bilat Bruit Medical History Medications: Clonidine,,,,, Hydralazine,,,,, Isosorbide,,,,, Aspirin,,,,, Ferrous sulfate,,,,, Gabapentin,,,,, Atorvastatin,,,,, Carvedilol,,,,, Lasix,,,,, Albuterol,,,,, Tramadol,,,,, Famotidine,,,,, Stress Test Details Test: LEXISCAN Reversal agent Aminophyline 100.0 mg, given intravenously for nausea. HR Resting HR: 58 bpm Max Heart Rate (APMHR): 165 bpm Max HR Achieved: 87 bpm Target HR (85% APMHR): 140 bpm % of APMHR: 52 Recovery HR: 63 bpm BP Resting BP: 145.0/69.0 mmHg Max BP: 155.0/71.0 mmHg Recovery BP: 147.0/68.0 mmHg ECG Resting ECG: Sinus bradycardia, rightward axis, LVH ith strain pattern, poor R wave progression. Clinical Exercise duration: 04:00 min Highest Stage Achieved: Exercise capacity: 1.0 METs Stress ECG Conclusion Symptoms: Shortness of air, nausea/vomiting, malaise Arrhythmias/Ectopy: Pauses up to 4 seconds long after Lexiscan injection, rare PVC, PAC ST-T Changes: Mild exaggeration of baseline abnormalities. Conclusion: Long sinus pauses with Lexiscan infusion. Power [employer] images reported separately. Electronically signed by : Ryan Kamara MD 06/21/2021 20:06:59
--- NOTE | 2021-06-21 08:07 | NM_ITS ---
APPROVED REPORT Exam: Nuclear Stress Test Indication: Chest pain, SOB, CAD, CABG, HTN, High cholesterol, Tobacco use Patient Location: Outpatient Stress Tech: Kristin Mercer NM Tech:Lisa Kapadia, ARRT, RT (R)(N) Ht: 5 ft 4 in Wt: 171 lbs Bra Size: 36C HR: 56 bpm BP: 145/69 mmHg BSA: 1.83 m2 BMI: 29.3 History: Chest pain, SOB, CAD, CABG, HTN, High cholesterol, Tobacco use Procedure: Patient received a 0.4 mg of intravenous Lexiscan, resting heart rate 56 bpm, resting blood pressure 145/69 mmHg, with Lexiscan maximum heart rate achived was 84 bpm which is Less than 85 % of the maximum predicted heart rate and blood pressure was 155/71 mmHg. With Lexiscan, patient denied any complaint of chest pain. Electrocardiogram Resting electrocardiogram showed sinus rhythm, with Lexiscan there is less than 1.[address] segment depression noted from the baseline EKG. The EKG portion of the Lexiscan is nondiagnostic. Cardiac Stress and Resting SPECT Images: Cardiac Stress and Resting SPECT images were obtained using technetium 99m Myoview 29.9 mCi stress and 9.87 mCi at rest. Gated SPECT for analysis of segmental wall motion and calculation of the ejection fraction also done. Cardiac stress and resting SPECT images show uniform myocardial activity without segmental perfusion abnormality, computer derived ejection fraction 64% with no regional wall motion abnormality, right ventricle is normal size and contractility. Conclusion: 1. The EKG portion of the Lexiscan is nondiagnostic, patient has transient sinus node arrest during the infusion of Lexiscan. 2. No scintigraphic evidence of reversible ischemia seen, computer derived ejection fraction is 64% with no regional wall motion abnormality, right ventricle is normal size and contractility. 3. Normal Lexiscan Myoview study. Electronically signed by : Ryan Kamara MD 06/21/2021 22:08:04
--- NOTE | 2021-06-21 10:02 | HMH.ITSHM ---
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 []TRAZODONE TRAMADOL SEVELAMER MULTIVITAMIN ISOSORBIDE ALBUTEROL HYDROCODONE HYDRALAZINE GABPENTIN FUROSEMIDE IRON FAMOTIDINE CLONIDINE CARVEDILOL ATORVASTATIN SPIRIVA MELATONIN ASA
--- NOTE | 2021-06-21 10:27 | CA_ITS ---
APPROVED REPORT Rf Manager: FADIA Laterality: Bilateral Study Quality: Adequate, Due to inability of patient to remain still. Indications: bruits Risk Factors Hypertension: Hyperlipidemia CAD, Smoking Doppler Spectral Velocity Analysis ECA (R) 139.90/20.00 cm/s ECA (L) 76.40/14.80 cm/s dICA (R) 98.80/32.90 cm/s dICA (L) 87.30/28.90 cm/s Asha (R) 101.10/31.70 cm/s Asha (L) 76.40/30.20 cm/s pICA (R) 64.70/18.80 cm/s pICA (L) 80.30/21.80 cm/s dCCA (R) 136.40/32.90 cm/s dCCA (L) 55.20/16.30 cm/s pCCA (R) 110.10/23.50 cm/s pCCA (L) 67.00/17.60 cm/s Vert (R) 45.90/9.40 cm/s Vert (L) 44.10/13.70 cm/s ICA/CCA 0.74 ICA/CCA 1.58 Findings Duplex evaluation demonstrates antegrade flow of the bilateral Vertebral Arteries. Duplex evaluation demonstrates stenosis of the right proximal internal carotid artery in the range of 20-49% with PSV <140 cm/sec, EDV <100 cm/sec, and IC/CC Ratio <4.0. Duplex evaluation demonstrates stenosis of the left proximal internal carotid artery in the range of 20-49% with PSV <140 cm/sec, EDV <100 cm/sec, and IC/CC Ratio <4.0. Conclusion Duplex evaluation demonstrates antegrade flow of the bilateral Vertebral Arteries. Duplex evaluation demonstrates stenosis of the right proximal internal carotid artery in the range of 20-49% with PSV <140 cm/sec, EDV <100 cm/sec, and IC/CC Ratio <4.0. Duplex evaluation demonstrates stenosis of the left proximal internal carotid artery in the range of 20-49% with PSV <140 cm/sec, EDV <100 cm/sec, and IC/CC Ratio <4.0. Electronically signed by : Keenan Peterson MD 06/21/2021 16:30:17
== END ==
PROVIDERS: PCP Emergency Medicine; Visit Provider Nurse Practitioner Family
DX: R09.89 Other specified symptoms and signs involving the circulatory and respiratory systems (principal); R06.02 Shortness of breath; I20.9 Angina pectoris, unspecified; I50.9 Heart failure, unspecified; I11.0 Hypertensive heart disease with heart failure; E78.5 Hyperlipidemia, unspecified; Z95.1 Presence of aortocoronary bypass graft; Z95.2 Presence of prosthetic heart valve
CPT/HCPCS: 78452; 93017; 93306; 93880; A9502; J0280; J2785

== ENCOUNTER → 2021-06-27 10:41 | Outpatient (CLI) | payer MEDICAID, SELFPAY ==
[2021-06-27 11:15] LABS: Basophils # 0.1 K/mm3 (0-0.2); Basophils % 0.7 % (0.1-2.0); Eosinophils # 0.2 K/mm3 (0.0-0.4); Eosinophils % 2.3 % (0.1-12.0); Hematocrit 29.3 % (37.0-47.0); Hemoglobin 9.6 g/dL (12.2-16.2); Lymphocytes # 1.2 K/mm3 (0.7-4.5); Lymphocytes % 14.6 % (10-50); Mean Corpuscular HGB Conc 32.9 g/dL (31.8-35.4); Mean Corpuscular Hemoglobin 28.1 pg (27.0-31.2); Mean Corpuscular Volume 85.4 fl (81-99); Mean Platelet Volume 8.8 fl (7.4-10.4); Monocytes # 0.6 K/mm3 (0.1-1.0); Monocytes % 7.4 % (1.7-9.3); Platelet Count 223 K/mm3 (142-424); Red Blood Count 3.43 M/mm3 (4.20-5.40); Red Cell Distribution Width 15.8 % (11.5-17.5); White Blood Count 7.9 K/mm3 (4.8-10.8)
[2021-06-27 13:08] LABS: Chloride 107 mmol/L (98-107); Potassium 4.5 mmoL/L (3.5-5.1); Sodium 141 mmol/L (136-145)
[2021-06-27 13:10] LABS: Blood Urea Nitrogen 33 mg/dl (7-17); Estimated Glomerular Filt Rate 14 ml/min (>60); GFR (African American) 16 ML/MIN (>60)
[2021-06-27 13:11] LABS: Alanine Aminotransferase 10 U/L (12-78); Albumin Level 4.1 g/dl (3.5-5.0); Alkaline Phosphatase 97 U/L (38-126); Anion Gap 11.5 mEq/L (5-15); Aspartate Amino Transferase 27 U/L (14-36); Bilirubin,Direct 0.3 mg/dl (0.0-0.4); Bilirubin,Indirect 0.1 mg/dL (0.0-0.9); Bilirubin,Total 0.4 mg/dl (0.2-1.3); Bilirubin,Unconjugated 0.2 mg/dL (0.0-1.1); Calcium 9.2 mg/dl (8.4-10.2); Carbon Dioxide 27 mmol/L (22.0-30.0); Glucose 95 mg/dl (74-100); Total Protein,Serum 7.2 g/dl (6.3-8.2)
[2021-06-27 13:25] LABS: Free T4 (Free Thyroxine) 1.53 ng/dl (0.78-2.19)
[2021-06-27 13:40] LABS: Thyroid Stimulating Hormone 1.63 uIU/mL (0.465-4.68)
== END ==
PROVIDERS: Visit Provider Physician Assistant
DX: R06.02 Shortness of breath (principal); I25.10 Atherosclerotic heart disease of native coronary artery without angina pectoris; I50.9 Heart failure, unspecified; Z95.1 Presence of aortocoronary bypass graft; Z95.2 Presence of prosthetic heart valve; Z98.890 Other specified postprocedural states
CPT/HCPCS: 36415; 80048; 80076; 84439; 84443; 85025

== ENCOUNTER → 2021-07-06 15:00 | Outpatient (CLI) | payer OTHER, SELFPAY ==
--- NOTE | 2021-07-06 15:04 | CT_ITS ---
PROCEDURE INFORMATION: Exam: CT Chest Without Contrast; Diagnostic Exam date and time: 07/06/2021 3:04 PM Age: 55 years old Clinical indication: Patient HX: Shortness of breath, HX of known ascending aortic aneurysm. TECHNIQUE: Imaging protocol: Diagnostic computed tomography of the chest without contrast. Radiation optimization: All CT scans at this facility use at least one of these dose optimization techniques: automated exposure control; mA and/or kV adjustment per patient size (includes targeted exams where dose is matched to clinical indication); or iterative reconstruction. COMPARISON: CR XR CHEST PORTABLE 01/03/2021 1:09 PM FINDINGS: Lungs: Calcified right pulmonary granulomas. No suspicious mass. Dense atelectasis or scarring at the posterolateral left lower lobe, no definite consolidation. No rounded ground-glass lesions. 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 Pleural spaces: A small layering left pleural effusion, primarily subpulmonic fluid, see coronal image 44, this is low-density fluid measuring approximately 4-11 HU. No significant effusion on the right. No pneumothorax. Heart/mediastinum: Cardiomegaly. Small pericardial effusion greatest toward the right, fluid up to 2 cm thickness series 3, image 37 and coronal series 601, image 23. There is mild adjacent anterior superior mediastinal fluid, anterior to the aortic arch which is slightly more dense however, the pericardial and mediastinal fluid measures from -4 to +15 HU, no hyperdense fluid to suggest acute hematoma. This could be in part residual postop fluid/seroma. Coronary calcifications. Aortic valve prosthesis. Possible tricuspid valve prosthesis, with curvilinear metallic density at the valve, appearance unchanged compared with x-rays from 01/03/2021. Aorta: Aneurysmal dilatation of the thoracic aorta, greatest at the distal arch, measuring approximately 5.1 cm diameter, series 3, images 21-24 and coronal series 601, image 44. Milder dilatation of the ascending aorta approximate 4.7 x 4.8 cm series 3, image 27. Slightly tortuous and ectatic distal thoracic aorta approximate 3.6 cm diameter sagittal image 46. Multiple calcified atherosclerotic plaques in the thoracic aorta. Lymph nodes: Mild mediastinal lymphadenopathy, slightly increased number and size of visible nodes, and there are also some partially calcified precarinal nodes. Tiny calcified right hilar nodes. Kidneys and ureters: Some possible left renal calculi or parenchymal calcifications, incompletely imaged on this exam. Bones/joints: Sternotomy wires. Chronic appearing mild anterior wedge compression deformities in the lower thoracic spine with mild kyphosis. No acute appearing fracture or high-grade listhesis.There are spinal degenerative changes, with multilevel disc narrrowing and spondylosis. Soft tissues: There are no soft tissue masses or fluid collections. IMPRESSION: 1. Thoracic aortic aneurysm, measuring up to 5.1 cm diameter in the distal arch just beyond the great vessels, milder dilatation of the ascending aorta up to 4.8 cm. 2. Mild mediastinal fluid and small pericardial effusion, but no dense fluid to confirm acute hematoma. There are no prior CT exams available to document stability. If there is clinical suspicion of aortic dissection or leakage, recommend CTA for more accurate evaluation. 3. Cardiomegaly, prosthetic heart valves, coronary calcifications. 4. Small left pleural effusion, primarily subpulmonic fluid. 5. Left lower lobe pulmonary atelectasis or scarring at the base. No definite consolidation. 6. Lungs overall
== END ==
PROVIDERS: Visit Provider Physician Assistant
DX: I71.2 Thoracic aortic aneurysm, without rupture (principal)
CPT/HCPCS: 71250

== ENCOUNTER 2021-07-07 14:26 | Inpatient (IN) | payer OTHER, SELFPAY ==
[2021-07-07] VITALS (12 sets, daily range): BP systolic 128–156; BP diastolic 65–84; PULSE 64–70; RESP 18–22; TEMP 36.8; O2SAT 88–96; BMI 31.4; BMI 31.6
--- NOTE | 2021-07-07 14:50 | XR_ITS ---
PROCEDURE: XR CHEST PORTABLE CLINICAL HISTORY: SOA, low SaO2 COMPARISON: CR XR CHEST PORTABLE from 01/08/2020 CR XR CHEST PORTABLE from 03/20/2020 CR XR CHEST PORTABLE from 01/03/[address] CHEST WO CON from 07/06/2021 FINDINGS: There is cardiomegaly. Prior median sternotomy with aortic valve replacement. Opacification is present in the left lung base consistent with left-sided effusion and atelectatic change. Increased markings right lower lobe suggestive of atelectasis or infiltrate. Calcified granuloma right upper lobe. IMPRESSION: Left-sided pleural effusion with bibasilar atelectasis or infiltrate. Cardiomegaly Dictated by: Keenan Peterson MD 07/07/2021 15:53 Keenan Peterson MD in [place] 07/07/2021 15:53
--- NOTE | 2021-07-07 15:05 | HMH.EDGENADL ---
ED Disposition Clinical Impression: Volume overload Disposition: Admitted As Inpatient Condition on Discharge: Undetermined - Critical Care Critical Care Time: No Attestation: On 07/07/21, the high probability of a clinically significant, sudden or life threatening deterioration of the following system(s) required my full and direct attention, intervention and personal management. The time I documented below is in addition to time spent performing reported procedures but includes the following listed in this critical care notation. Medical Decision Making - Medical Records Medical records reviewed: Yes: I reviewed the patient's medical records. - Norris Inquiry Pt receiving controlled substance: No Vital Signs: 07/07/21 14:27 07/07/21 14:39 07/07/21 15:00 Temperature 98.2 F Temperature Source Oral Pulse Rate 66 67 Pulse Rate [Right Radial] 66 Respiratory Rate 22 18 18 Blood Pressure 142/67 H 135/65 Blood Pressure [Right Arm] 142/67 H Blood Pressure Mean 108 97 Blood Pressure Mean [Right Arm] 92 Blood Pressure Source [Right Arm] Automatic Cuff Blood Pressure Position [Right Arm] Sitting 02 Sat by Pulse Oximetry 96 95 96 Oxygen Delivery Method Nasal Cannula Nasal Cannula Nasal Cannula Oxygen Flow Rate (LPM) 3 3 3 07/07/21 15:30 07/07/21 16:00 07/07/21 16:30 Temperature Temperature Source Pulse Rate 64 65 64 Pulse Rate [Right Radial] Respiratory Rate 18 18 18 Blood Pressure 138/73 128/71 136/69 Blood Pressure [Right Arm] Blood Pressure Mean 106 104 91 Blood Pressure Mean [Right Arm] Blood Pressure Source [Right Arm] Blood Pressure Position [Right Arm] 02 Sat by Pulse Oximetry 96 95 94 L Oxygen Delivery Method Nasal Cannula Nasal Cannula Nasal Cannula Oxygen Flow Rate (LPM) 3 3 2 07/07/21 17:00 Temperature Temperature Source Pulse Rate 67 Pulse Rate [Right Radial] Respiratory Rate 18 Blood Pressure 147/83 H Blood Pressure [Right Arm] Blood Pressure Mean 104 Blood Pressure Mean [Right Arm] Blood Pressure Source [Right Arm] Blood Pressure Position [Right Arm] 02 Sat by Pulse Oximetry 93 L Oxygen Delivery Method Nasal Cannula Oxygen Flow Rate (LPM) 2 - Lab Data Lab results reviewed: Yes: I reviewed the patient's lab results. Lab Results 07/07/21 14:42: WBC 6.1, RBC 3.22 L, Hgb 8.7 L, Hct 27.4 L, MCV 85.1, MCH 27.0, MCHC 31.7 L, RDW 15.2, Plt Count 242, MPV 7.8, Neut % (Auto) 72.1, Lymph % (Auto) 16.8, [place] % (Auto) 7.3, Eos % (Auto) 2.4, Baso % (Auto) 1.4, Neut # (Auto) 4.4, Lymph # (Auto) 1.0, [place] # (Auto) 0.4, Eos # (Auto) 0.1, Baso # (Auto) 0.1 07/07/21 14:42: Sodium 137, Potassium 3.5, Chloride 103, Carbon Dioxide 28, Anion Gap 9.5, BUN 31 H, Creatinine 3.80 H, Estimated Creat Clear 22, Estimated GFR 12 L*, Est GFR ( Amer) 15 L*, Glucose 163 H, Calcium 9.1, Total Bilirubin 0.4, AST 30, ALT 17, Alkaline Phosphatase 93, NT-Pro-B Natriuret Pep 5730 H, Total Protein 7.5, Albumin 4.0, Globulin 3.5 H, Albumin/Globulin Ratio 1.1 07/07/21 14:42: Troponin I < 0.01 Result diagrams: 07/07/21 14:42 07/07/21 14:42 Orders (Tests/Meds): ED MEDICATIONS Discontinued Medications Generic Name Dose Route Start Last Admin Trade Name Freq PRN Reason Stop Dose Admin Acetaminophen 650 mg 07/07/21 16:17 07/07/21 16:18 Acetaminophen 325mg Tab PO 07/07/21 16:18 650 mg ONCE ONE Administration Furosemide 40 mg 07/07/21 16:34 07/07/21 17:12 Furosemide 40mg/4ml Vial IV 07/07/21 16:35 40 mg ONCE ONE Administration ORDERS Category Date Time Status Rapid PCR Covid and Flu A/B Stat Lab 07/07/21 17:46 Received Troponin I Q3H Lab 07/07/21 18:15 Ordered Troponin I Q3H Lab 07/07/21 21:15 Ordered EKG Request [ECG Request by /Nse] Stat Y 07/07/21 15:06 Ordered - Radiology Data #1 CXR: FINDINGS: There is cardiomegaly. Prior median sternotomy with aortic valve replacement. Opacification is present in
--- NOTE | 2021-07-07 15:06 | ECG_ITS ---
APPROVED REPORT Exam: Resting ECG HR:68 bpm ECG Measurements Heart Rate 68 AXES [place] 175 P 107 QRSd 89 QRS 87 QT 426 T 257 QTc 443 Conclusion SINUS RHYTHM Late R wave progression, previously noted ABNORMAL ECG UNCONFIRMED REPORT Electronically signed by : Duke Montez MD 10/14/2021 12:27:30
[2021-07-07 15:24] LABS: Alanine Aminotransferase 17 U/L (12-78); Albumin/Globulin Ratio 1.1 (1.1-1.8); Alkaline Phosphatase 93 U/L (38-126); Anion Gap 9.5 mEq/L (5-15); Aspartate Amino Transferase 30 U/L (14-36); Bilirubin,Total 0.4 mg/dl (0.2-1.3); Blood Urea Nitrogen 31 mg/dl (7-17); Calcium 9.1 mg/dl (8.4-10.2); Carbon Dioxide 28 mmol/L (22.0-30.0); Chloride 103 mmol/L (98-107); Creatinine Clearance Estimated 22 mL/min (50-200); Estimated Glomerular Filt Rate 12 ml/min (>60); GFR (African American) 15 ML/MIN (>60); Globulin 3.5 g/dL (1.3-3.2); Glucose 163 mg/dl (74-100); Potassium 3.5 mmoL/L (3.5-5.1); Sodium 137 mmol/L (136-145); Total Protein,Serum 7.5 g/dl (6.3-8.2)
[2021-07-07 15:33] LABS: NT Pro Brain Natriuretic Pep. 5730 pg/mL (0-125)
[2021-07-07 15:40] LABS: Troponin I < 0.01 ng/ml (0.00-0.034)
[2021-07-07 15:42] LABS: Basophils # 0.1 K/mm3 (0-0.2); Basophils % 1.4 % (0.1-2.0); Eosinophils # 0.1 K/mm3 (0.0-0.4); Eosinophils % 2.4 % (0.1-12.0); Hematocrit 27.4 % (37.0-47.0); Hemoglobin 8.7 g/dL (12.2-16.2); Lymphocytes % 16.8 % (10-50); Mean Corpuscular HGB Conc 31.7 g/dL (31.8-35.4); Mean Corpuscular Volume 85.1 fl (81-99); Mean Platelet Volume 7.8 fl (7.4-10.4); Monocytes # 0.4 K/mm3 (0.1-1.0); Monocytes % 7.3 % (1.7-9.3); Neutrophils # 4.4 K/mm3 (1.8-7.8); Neutrophils % 72.1 % (37.0-80.0); Platelet Count 242 K/mm3 (142-424); Red Blood Count 3.22 M/mm3 (4.20-5.40); Red Cell Distribution Width 15.2 % (11.5-17.5); White Blood Count 6.1 K/mm3 (4.8-10.8)
--- NOTE | 2021-07-07 16:17 | PC.NURSE ---
decreased pt O2 to 2L per NC per ER MD request will continue to monitor
--- NOTE | 2021-07-07 17:23 | PC.NURSE ---
decreased pt O2 to 1L per NC at this time will continue to monitor
--- NOTE | 2021-07-07 17:24 | PC.NURSE ---
multiple knife edge trimmer operator paging client service and consulting manager doctor for dr. nicholson
--- NOTE | 2021-07-07 17:38 | PC.NURSE ---
WILL RHOADES speaking with dr. joiner who is rn oncology research for dr. nicholson
--- NOTE | 2021-07-07 17:40 | PC.NURSE ---
pt SaO2 dropped to 89% on 1L per NC while sleeping increased O2 back to 2L per NC, notified ER , will continue to monitor
--- NOTE | 2021-07-07 17:41 | PC.NURSE ---
notified house sitter of admission
--- NOTE | 2021-07-07 17:43 | PC.NURSE ---
called [facility] to request pt medication list be faxed up here. Staff states they will fax it. notified ER MD attempted to obtain pt medication list
[2021-07-07 17:56] LABS: Coronavirus 19, PCR Not Detected (NotDetected); Influenza A, PCR Not Detected (NotDetected); Influenza B, PCR Not Detected (NotDetected)
--- NOTE | 2021-07-07 17:57 | PC.NURSE ---
lab called stating will be a delay in covid swab results for pt (approx 40 minutes until they can run test) r/t they have to do QC on the machine
--- NOTE | 2021-07-07 19:25 | PC.NURSE ---
report called phyllis paula on second floor at this time, states she will send staff down to get pt
--- NOTE | 2021-07-07 19:54 | PC.NURSE ---
patient up to floor via wheelchair @ this time
[2021-07-07 20:03] LABS: Troponin I < 0.01 ng/ml (0.00-0.034)
[2021-07-07 22:03] LABS: Troponin I < 0.01 ng/ml (0.00-0.034)
[2021-07-08] VITALS: PULSE 70
[2021-07-08 04:00] VITALS: BP 145/84; PULSE 70; RESP 20; TEMP 36.8; O2SAT 90
--- NOTE | 2021-07-08 04:42 | PC.NURSE ---
A&OX4. PT TOLERATING 2.5LNC WELL. DOES HAVE SOME SOA WITH ACTIVITY. OTHERWISE PT HAS HAD NO C/O SINCE ARRIVAL TO FLOOR. UP INDEPENDENTLY IN ROOM. HAS SLEPT MAJORITY OF SHIFT. VSS WILL CONTINUE TO MONITOR.
[2021-07-08 05:15] VITALS: BMI 31.0
[2021-07-08 06:32] LABS: Basophils # 0.1 K/mm3 (0-0.2); Eosinophils # 0.2 K/mm3 (0.0-0.4); Eosinophils % 3.4 % (0.1-12.0); Hematocrit 28.4 % (37.0-47.0); Hemoglobin 9.3 g/dL (12.2-16.2); Lymphocytes # 1.1 K/mm3 (0.7-4.5); Lymphocytes % 19.9 % (10-50); Mean Corpuscular HGB Conc 32.6 g/dL (31.8-35.4); Mean Corpuscular Hemoglobin 27.5 pg (27.0-31.2); Mean Corpuscular Volume 84.3 fl (81-99); Mean Platelet Volume 7.6 fl (7.4-10.4); Monocytes # 0.5 K/mm3 (0.1-1.0); Monocytes % 8.3 % (1.7-9.3); Neutrophils # 3.8 K/mm3 (1.8-7.8); Neutrophils % 67.4 % (37.0-80.0); Platelet Count 223 K/mm3 (142-424); Red Blood Count 3.37 M/mm3 (4.20-5.40); White Blood Count 5.6 K/mm3 (4.8-10.8)
[2021-07-08 06:51] LABS: Chloride 104 mmol/L (98-107); Potassium 3.6 mmoL/L (3.5-5.1); Sodium 141 mmol/L (136-145)
[2021-07-08 06:54] LABS: Anion Gap 12.6 mEq/L (5-15); Blood Urea Nitrogen 29 mg/dl (7-17); Carbon Dioxide 28 mmol/L (22.0-30.0); Creatinine Clearance Estimated 22 mL/min (50-200); Estimated Glomerular Filt Rate 13 ml/min (>60); GFR (African American) 15 ML/MIN (>60)
[2021-07-08 06:55] LABS: Glucose 82 mg/dl (74-100); Magnesium 2.3 mg/dl (1.6-2.3)
[2021-07-08 08:00] VITALS: BP 174/95; PULSE 74; RESP 17; TEMP 36.9; O2SAT 93
--- NOTE | 2021-07-08 09:34 | HMH.HP ---
*Admission Date: 07/07/21 *Chief complaint: sob *History of present illness: [facility]- pt presented with sob - SOA for the past 2-3 weeks, states for the past couple days she has only been able to take approx 5 steps before she was out of breath. EMS reports pt SaO2 79% on RA at their arrival to pt. Pt arrives to ED on 3L per NC. Pt reports hx of COPD and CHF. Divya is a 55yo female with a past medical history significant for COPD, CHF, stage IV renal disease is presenting for chief complaint of worsening shortness of breath. Patient reports that for the past 1 year, she has been unable to take more than 5 steps without feeling short of air. In the past 1 week, this is worsened and patient has worsening lower extremity edema. She states that she usually has more swelling in her left lower extremity and this is not new. Patient is also complaining of a headache which feels like her usual headache just worse in severity. Patient otherwise feels well and denies fever, congestion, sore throat, new cough, hemoptysis, orthopnea, current chest pain, abdominal pain, nausea, vomiting, changes in GI/, dysuria. She usually does not have an oxygen requirement at home. She states she does take Lasix at home and has been taking her medicine as prescribed. Of note, patient had a CT scan done yesterday which showed an aortic aneurysm. pt was admitted for eval and treatment - [facility] History I have reviewed the patient's past medical history: Yes Medical History: Reports:: Atherosclerotic Heart Disease, Congestive Heart Failure, Coronary Artery Disease, Hyperlipidemia, Hypertension, Renal Insufficiency, Valvular Heart Disease Denies:: Cancer, Diabetes Mellitus Type 1, Diabetes Mellitus Type 2, Migraine, MRSA, Myocardial Infarction *Have you ever received a pneumonia vaccine?: No *Have you received a flu vaccine this season?: No Other Medical History: Reports: Arthritis. Denies: Hypothyroidism Other Surgeries: Yes: CABG, Cardiac Catheterization, Colonoscopy, , Open Heart Surgery, Other Valve Replacement Amputation: No - *Social History Smoking Status: Current every day smoker Tobacco Type: cigarettes # Packs/Day (cigarettes): 1 Alcohol Intake: never *Occupational Status:: disabled Household Members: children *Travel in the last 8 weeks: None Family Hx:: No significant family history Review of Systems - Review of Systems Review of systems:: pertinent systems reviewed and negative unless documented below - Constitutional Denies fever(s) - Eyes Denies change in vision - ENT Reports dry mouth - *Cardiovascular Reports shortness of breath, Denies chest pain - *Respiratory Reports shortness of breath, Denies cough - *Gastrointestinal Denies abdominal pain - *Musculoskeletal Denies joint pain - Integumentary/Breasts Denies rash - *Neurologic Reports headache(s), Denies localized weakness, Denies numbness, Denies fainting - Psychiatric Denies anxiety Meds Home Medications Medication Instructions Recorded Confirmed Type Albuterol Sulfate [Albuterol 8.5 gm IH Q6HP PRN #2 [email or web address] 01/10/20 07/07/21 Rx Sulfate Hfa] Aspirin [Low Dose Aspirin EC] 81 mg PO DAILY 01/04/21 07/07/21 History Melatonin 20 mg PO HS 01/04/21 07/07/21 History atorvastatin 40 mg tablet 40 mg PO DAILY 06/12/21 07/07/21 History carvedilol 12.5 mg tablet 12.5 mg PO BID 06/12/21 07/07/21 History clonidine HCl 0.1 mg tablet 0.1 mg PO BID 06/12/21 07/07/21 History famotidine 20 mg tablet 20 mg PO HS 06/12/21 07/07/21 History ferrous sulfate 325 mg (65 mg 325 mg PO DAILY 06/12/21 07/07/21 History iron) tablet furosemide 20 mg tablet 20 mg PO DAILY 06/12/21 07/07/21 History hydralazine 100 mg tablet 100 mg PO BID 06/12/21 07/07/21 History isosorbide mononitrate 60 mg 60 mg PO DAILY 06/12/21 07/07/21 History tablet,extended release 24 hr multivitamin 1 tab PO DAILY 06/12/21 07/07/21 History polyethylene g
[2021-07-08 09:51] LABS: Magnesium 2.3 mg/dl (1.6-2.3)
[2021-07-08 10:09] LABS: T4 (Thyroxine) 8.8 ug/dl (5.53-11.0)
[2021-07-08 10:22] LABS: Thyroid Stimulating Hormone 1.48 uIU/mL (0.465-4.68)
--- NOTE | 2021-07-08 11:52 | HMH.PHAINT ---
MEDICATION RECONCILIATION COMPLETED ON PATIENT USING MAR FROM [facility]. -MAIRA BONILLA, CINDID
--- NOTE | 2021-07-08 11:54 | P.CONPHA_ITS ---
[facility] Pharmacy VTE Monitoring - Patient Demographics Admission date: 07/07/21 Report Date: 07/08/21 Time: 11:54 Allergies/Adverse Reactions: Patient Allergies No Known Allergies Allergy (Verified 06/27/21 09:42) Height: 1.63 m Weight: 82.554 kg Patient Problems: Current Active Problems Acute CHF (Acute) Hypertension (Acute) History of mitral valve replacement (Acute) Volume overload (Acute) Obesity (BMI 30-39.9) (Acute) Renal insufficiency (Acute) Anemia (Acute) History of tricuspid valve repair (Chronic) CAD (coronary artery disease) (Chronic) Chronic kidney disease (Chronic) - VTE Risk Labs: VTE Related Lab Results Hgb 9.3 g/dL (12.2-16.2) L 07/08/21 05:25 Hct 28.4 % (37.0-47.0) L 07/08/21 05:25 Plt Count 223 K/mm3 (142-424) 07/08/21 05:25 BUN 29 mg/dl (7-17) H 07/08/21 05:25 Creatinine 3.70 mg/dl (0.52-1.04) H 07/08/21 05:25 Estimated Creat Clear 22 mL/min (50-200) 07/08/21 05:25 - Prophylaxis VTE Prophylaxis Ordered?: Yes Types of VTE Prophylaxis: TEDS Knee High Location of Applied Device: Bilateral Lower Extremeties
[2021-07-08 12:00] VITALS: BP 150/79; PULSE 68; PULSE 70; RESP 18; TEMP 37.1; O2SAT 95
--- NOTE | 2021-07-08 15:47 | PC.NURSE ---
PT IS RESTING IN BED. NO COMPLAINTS OF DISCOMFORT. ALERT AND ORIENTED X4. O2 SATURATION HAS MAINTAINED 90-95% ON 2 L NC. LUNG SOUNDS DIMINISHED. ABDOMEN SOFT NON TENDER WITH ACTIVE BOWEL SOUNDS. PT AMBULATES TO THE BATHROOM INDEPENDENTLY. EATING AND DRINKING WELL. WILL CONTINUE TO MONITOR.
[2021-07-08 16:00] VITALS: BP 144/72; PULSE 60; PULSE 70; RESP 18; TEMP 37.1; O2SAT 91
[2021-07-08 20:00] VITALS: BP 118/71; PULSE 70; PULSE 72; RESP 20; TEMP 37.1; O2SAT 94
[2021-07-09] VITALS (7 sets, daily range): BP systolic 120–155; BP diastolic 60–79; PULSE 59–73; RESP 14–20; TEMP 36.7–37; O2SAT 90–95; BMI 30.4
[2021-07-09 07:16] LABS: Basophils # 0.1 K/mm3 (0-0.2); Basophils % 0.8 % (0.1-2.0); Eosinophils # 0.2 K/mm3 (0.0-0.4); Eosinophils % 2.4 % (0.1-12.0); Hematocrit 29.2 % (37.0-47.0); Hemoglobin 9.4 g/dL (12.2-16.2); Lymphocytes % 14.9 % (10-50); Mean Corpuscular HGB Conc 32.1 g/dL (31.8-35.4); Mean Corpuscular Hemoglobin 27.3 pg (27.0-31.2); Mean Corpuscular Volume 85.1 fl (81-99); Mean Platelet Volume 7.6 fl (7.4-10.4); Monocytes # 0.6 K/mm3 (0.1-1.0); Monocytes % 8.6 % (1.7-9.3); Neutrophils # 4.9 K/mm3 (1.8-7.8); Neutrophils % 73.4 % (37.0-80.0); Platelet Count 216 K/mm3 (142-424); Red Blood Count 3.44 M/mm3 (4.20-5.40); White Blood Count 6.6 K/mm3 (4.8-10.8)
[2021-07-09 07:24] LABS: Chloride 107 mmol/L (98-107); Potassium 3.6 mmoL/L (3.5-5.1); Sodium 140 mmol/L (136-145)
[2021-07-09 07:26] LABS: Blood Urea Nitrogen 28 mg/dl (7-17); Creatinine Clearance Estimated 25 mL/min (50-200); Estimated Glomerular Filt Rate 15 ml/min (>60); GFR (African American) 18 ML/MIN (>60)
[2021-07-09 07:27] LABS: Anion Gap 11.6 mEq/L (5-15); Calcium 9.1 mg/dl (8.4-10.2); Carbon Dioxide 25 mmol/L (22.0-30.0); Glucose 87 mg/dl (74-100); Phosphorous 4.2 mg/dl (2.5-4.5)
--- NOTE | 2021-07-09 09:58 | HMH.ACPN2 ---
Internal Medicine - PN: Subj *Date: 07/09/21 *Time: 09:58 Interval history: pt w/o specific c/o- doing ok - labs sl improved Exam Vital signs and Labs for Last 24 Hours: Temp Pulse Resp BP Pulse Ox 98.5 F 69 19 146/74 H 93 L 07/09/21 08:00 07/09/21 08:00 07/09/21 08:00 07/09/21 08:00 07/09/21 08:00 Laboratory Results - last 24 hr 07/08/21 05:25: TSH 1.48, Thyroxine (T4) 8.8 07/09/21 05:28: Sodium 140, Potassium 3.6, Chloride 107, Carbon Dioxide 25, Anion Gap 11.6, BUN 28 H, Creatinine 3.30 H, Estimated Creat Clear 25, Estimated GFR 15 L*, Est GFR ( Amer) 18 L*, Glucose 87, Calcium 9.1, Phosphorus 4.2 07/09/21 05:28: WBC 6.6, RBC 3.44 L, Hgb 9.4 L, Hct 29.2 L, MCV 85.1, MCH 27.3, MCHC 32.1, RDW 15.0, Plt Count 216, MPV 7.6, Neut % (Auto) 73.4, Lymph % (Auto) 14.9, [place] % (Auto) 8.6, Eos % (Auto) 2.4, Baso % (Auto) 0.8, Neut # (Auto) 4.9, Lymph # (Auto) 1.0, [place] # (Auto) 0.6, Eos # (Auto) 0.2, Baso # (Auto) 0.1 I & O for Last 24 hours: Intake & Output 07/06/21 07/07/21 07/08/21 07/09/21 11:59 11:59 11:59 11:59 Intake Total 360 / 360 840 / 840 Output Total 600 / 600 Balance -240 / -240 840 / 840 Weight 182 lb 178 lb 8 oz - Constitutional no acute distress, obese - *Routine HEENT Exam Head: Present: normocephalic Eye: Present: EOMI, PERRL ENT: Present: mucous membranes dry - *Routine Neck Exam Absent: JVD - *Routine Respiratory Exam Present: CTA bilaterally - *Routine Cardiovascular Exam Present: RRR, murmur, S4 - *Routine Abdominal Exam Present: soft - *Routine Extremities Exam Absent: calf tenderness - *Routine Skin Exam Present: intact - *Routine Neurological Exam Present: alert, CN II-XII intact - Routine Psychiatric Exam Present: normal affect Assessment and Plan (1) Acute CHF Status: Acute Qualifiers: Heart failure type: combined systolic and diastolic Qualified Code(s): I50.41 - Acute combined systolic (congestive) and diastolic (congestive) heart failure Category: Medical Code(s): I50.9 - Heart failure, unspecified (2) Obesity (BMI 30-39.9) Status: Acute Category: Medical Code(s): E66.9 - Obesity, unspecified (3) Renal insufficiency Status: Acute Category: Medical Code(s): N28.9 - Disorder of kidney and ureter, unspecified (4) Anemia Status: Acute Qualifiers: Anemia type: unspecified type Qualified Code(s): D64.9 - Anemia, unspecified Category: Medical Code(s): D64.9 - Anemia, unspecified (5) History of mitral valve replacement Status: Acute Category: Surgical Code(s): Z95.2 - Presence of prosthetic heart valve (6) Hypertension Status: Acute Qualifiers: Hypertension type: primary hypertension Qualified Code(s): I10 - Essential (primary) hypertension Category: Medical Code(s): I10 - Essential (primary) hypertension (7) CAD (coronary artery disease) Status: Chronic Qualifiers: Coronary Disease-Associated Artery/Lesion type: bypass graft [place] vs. transplanted heart: [place] heart Associated angina: with other forms of angina Qualified Code(s): I25.708 - Atherosclerosis of coronary artery bypass graft(s), unspecified, with other forms of angina pectoris Category: Medical Code(s): I25.10 - Atherosclerotic heart disease of [place] coronary artery without angina pectoris (8) Chronic kidney disease Status: Chronic Qualifiers: Chronic kidney disease stage: stage 4 (severe) Qualified Code(s): N18.4 - Chronic kidney disease, stage 4 (severe) Category: Medical Code(s): N18.9 - Chronic kidney disease, unspecified (9) History of tricuspid valve repair Problem details: 05/11/2020 [facility] Status: Chronic Category: Surgical Code(s): Z98.890 - Other specified postprocedural states
--- NOTE | 2021-07-09 14:37 | PC.NURSE ---
pt is resting in bed. no complaints of discomfort. alert and oriented x4. pt has been ambulating to the bathroom and around the room. eating and drinking well. lung sounds diminished. abdomen soft/non tender with active bowel sounds. o2 saturation has maintained 90-94% on 1.5 l nc. will continue to monitor.
--- NOTE | 2021-07-09 22:58 | PC.NURSE ---
LATE ENTRY: 2030 ATTEMPTED A TRIAL WITHOUT O2. PT O2 SATS WERE 95% AND SUSTAINED WITH INCENTIVE SPIROMETRY. 30MIN AFTER REMOVING O2 PT FELT SOA AND HER SATS WERE 89-90%. O2 NC REPLACED AND SET TO 1L. PT SATS ARE NOW 94%. WILL MONITOR CLOSELY.
[2021-07-10] VITALS (7 sets, daily range): BP systolic 117–140; BP diastolic 64–75; PULSE 59–69; RESP 17–20; TEMP 36.6–37.1; O2SAT 93–96; BMI 29.7
--- NOTE | 2021-07-10 04:32 | PC.NURSE ---
NO ACUTE CHANGES FROM PREVIOUS ASSESSMENT. VS REMAIN STABLE CHARTED. PT HAS RESTED WELL THIS SHIFT WITH NO C/O. O2 CURRENTLY REMOVED AT THIS TIME FOR WEANING TRIAL.
--- NOTE | 2021-07-10 05:23 | PC.NURSE ---
O2 REAPPLIED, PT O2 SATS 87-89% ON RA
[2021-07-10 07:00] LABS: Basophils # 0.1 K/mm3 (0-0.2); Basophils % 0.8 % (0.1-2.0); Eosinophils # 0.2 K/mm3 (0.0-0.4); Eosinophils % 2.7 % (0.1-12.0); Hematocrit 29.4 % (37.0-47.0); Hemoglobin 9.3 g/dL (12.2-16.2); Lymphocytes # 1.1 K/mm3 (0.7-4.5); Lymphocytes % 16.6 % (10-50); Mean Corpuscular HGB Conc 31.8 g/dL (31.8-35.4); Mean Corpuscular Hemoglobin 27.1 pg (27.0-31.2); Mean Corpuscular Volume 85.1 fl (81-99); Mean Platelet Volume 7.7 fl (7.4-10.4); Monocytes # 0.5 K/mm3 (0.1-1.0); Monocytes % 7.5 % (1.7-9.3); Neutrophils % 72.4 % (37.0-80.0); Platelet Count 240 K/mm3 (142-424); Red Blood Count 3.45 M/mm3 (4.20-5.40); Red Cell Distribution Width 15.1 % (11.5-17.5); White Blood Count 6.8 K/mm3 (4.8-10.8)
[2021-07-10 07:04] LABS: Chloride 109 mmol/L (98-107); Sodium 140 mmol/L (136-145)
[2021-07-10 07:07] LABS: Blood Urea Nitrogen 29 mg/dl (7-17); Creatinine Clearance Estimated 25 mL/min (50-200); Estimated Glomerular Filt Rate 15 ml/min (>60); GFR (African American) 18 ML/MIN (>60)
[2021-07-10 07:08] LABS: Calcium 9.1 mg/dl (8.4-10.2); Carbon Dioxide 24 mmol/L (22.0-30.0); Glucose 101 mg/dl (74-100); Phosphorous 4.1 mg/dl (2.5-4.5)
--- NOTE | 2021-07-10 08:56 | HMH.ACPN2 ---
Internal Medicine - PN: Subj *Date: 07/10/21 *Time: 08:10 Interval history: pt states doing better, still needing o2. Exam Vital signs and Labs for Last 24 Hours: Temp Pulse Resp BP Pulse Ox 98.2 F 65 20 117/72 93 L 07/10/21 08:15 07/10/21 08:15 07/10/21 08:15 07/10/21 08:15 07/10/21 08:15 Laboratory Results - last 24 hr 07/10/21 06:37: Sodium 140, Potassium 4.0, Chloride 109 H, Carbon Dioxide 24, Anion Gap 11.0, BUN 29 H, Creatinine 3.20 H, Estimated Creat Clear 25, Estimated GFR 15 L*, Est GFR ( Amer) 18 L*, Glucose 101 H, Calcium 9.1, Phosphorus 4.1 07/10/21 06:37: WBC 6.8, RBC 3.45 L, Hgb 9.3 L, Hct 29.4 L, MCV 85.1, MCH 27.1, MCHC 31.8, RDW 15.1, Plt Count 240, MPV 7.7, Neut % (Auto) 72.4, Lymph % (Auto) 16.6, [place] % (Auto) 7.5, Eos % (Auto) 2.7, Baso % (Auto) 0.8, Neut # (Auto) 5.0, Lymph # (Auto) 1.1, [place] # (Auto) 0.5, Eos # (Auto) 0.2, Baso # (Auto) 0.1 I & O for Last 24 hours: Intake & Output 07/07/21 07/08/21 07/09/21 07/10/21 11:59 11:59 11:59 11:59 Intake Total 360 / 360 840 / 840 720 / 720 Output Total 600 / 600 Balance -240 / -240 840 / 840 720 / 720 Weight 182 lb 178 lb 8 oz 174 lb 9 oz - Constitutional no acute distress - *Routine HEENT Exam Head: Present: normocephalic Eye: Present: PERRL ENT: Present: mucous membranes moist - *Routine Neck Exam Present: supple. Absent: lymphadenopathy - *Routine Respiratory Exam Present: rhonchi - *Routine Cardiovascular Exam Present: RRR, murmur - *Routine Abdominal Exam Present: soft, normoactive bowel sounds. Absent: tenderness - *Routine Extremities Exam Absent: cyanosis, clubbing, edema - *Routine Skin Exam Present: warm. Absent: rash - *Routine Neurological Exam Present: alert, oriented X3 Assessment and Plan (1) Acute CHF Status: Acute Qualifiers: Heart failure type: combined systolic and diastolic Qualified Code(s): I50.41 - Acute combined systolic (congestive) and diastolic (congestive) heart failure Category: Medical Code(s): I50.9 - Heart failure, unspecified (2) Obesity (BMI 30-39.9) Status: Acute Category: Medical Code(s): E66.9 - Obesity, unspecified (3) Renal insufficiency Status: Acute Category: Medical Code(s): N28.9 - Disorder of kidney and ureter, unspecified (4) Anemia Status: Acute Qualifiers: Anemia type: unspecified type Qualified Code(s): D64.9 - Anemia, unspecified Category: Medical Code(s): D64.9 - Anemia, unspecified (5) History of mitral valve replacement Status: Acute Category: Surgical Code(s): Z95.2 - Presence of prosthetic heart valve (6) Hypertension Status: Acute Qualifiers: Hypertension type: primary hypertension Qualified Code(s): I10 - Essential (primary) hypertension Category: Medical Code(s): I10 - Essential (primary) hypertension (7) CAD (coronary artery disease) Status: Chronic Qualifiers: Coronary Disease-Associated Artery/Lesion type: bypass graft [place] vs. transplanted heart: [place] heart Associated angina: with other forms of angina Qualified Code(s): I25.708 - Atherosclerosis of coronary artery bypass graft(s), unspecified, with other forms of angina pectoris Category: Medical Code(s): I25.10 - Atherosclerotic heart disease of [place] coronary artery without angina pectoris (8) Chronic kidney disease Status: Chronic Qualifiers: Chronic kidney disease stage: stage 4 (severe) Qualified Code(s): N18.4 - Chronic kidney disease, stage 4 (severe) Category: Medical Code(s): N18.9 - Chronic kidney disease, unspecified (9) History of tricuspid valve repair Problem details: 05/11/2020 [facility] Status: Chronic Category: Surgical Code(s): Z98.890 - Other specified postprocedural states - Assessment and plan all Dx Assessment and Plan for all problems:: rounded with dr nicholson all orders per dr nicholson cardiology to see echo
--- NOTE | 2021-07-10 09:00 | CA_ITS ---
APPROVED REPORT EXAM: Comprehensive 2D, Doppler, and color-flow Echocardiogram Ict Systems Test Engineer: Alison Castelan RDCS Ht: 5 ft 4 in Wt: 174lbs BSA: 1.84 BP: 120/88 mmHg Indications: Av replacement, CHF, CAD, Anemia 2D Dimensions LA Volume 78.90 mL LA Volume Index [id number] mL/m2 (M/F) 16-34 M-Mode Dimensions RVDd 3.09 cm (0.9-2.6) LVDd 4.76 cm (3.5-5.7) LVDs 3.35 cm (3.5-5.7) IVSd 1.31 cm (0.6-1.1) PWd 1.19 cm (0.6-1.1) EF (Teich) 56.50% FS 29.60% EDV (Teich) 105.40 mL ESV (Teich) 45.80 mL Conclusion 1. Limited echocardiogram was performed, left ventricle is mildly low normal size, concentric left ventricle hypertrophy, visually estimated ejection fraction 55% with no regional wall motion abnormality. 2. There is bioprosthetic valve noted in the mid position, hemodynamics were not obtained. 3. No significant pericardial effusion noted. Electronically signed by : Ryan Kamara MD 07/10/2021 20:05:55
--- NOTE | 2021-07-10 09:28 | SW/DCPLANNER ---
Addendum entered by Kathya Ghotra 07/11/21 10:00: This patient will [facility] to [facility]. Per Paulette no further COVID testing is needed prior to discharge. I have updated [facility] with [facility]. Paulette has stated that [facility] will transport the patient once medically stable for discharge. Addendum entered by Kathya Ghotra 07/10/21 12:41: Paulette everett/ [facility] has stated that she can accept this patient once medically stable for discharge. Original Note: This patient is currently a resident at [facility]. Patient does have O2 requirement at this time and can not return to [facility] with continuous O2 requirement. Patient information has been faxed to Paulette everett/ [facility] at this time to review information if patient can not wean from O2. I will continue to follow up with: MD sirena, [facility] and [facility].
--- NOTE | 2021-07-10 10:30 | PC.NURSE ---
turned oxygen off- pulse ox reading 95%- no soa reported or noted. will reassess need for o2
--- NOTE | 2021-07-10 10:34 | HMH.CNCARD ---
History of Present Illness Consult date: 07/10/21 Requesting physician: Lucio Irene Consult reason: congestive heart failure Chief complaint: SOA History of present illness: This is a 55-year-old white female who presented to the emergency department with complaints of shortness of breath. The patient is from a local [facility] and states that she has been short of breath for the last 2 to 3 weeks but this significantly worsened on . The patient states that she could take approximately 5 steps and she would become profoundly short of breath. This was severe. It is associated with bilateral lower extremity edema. The patient denies any chest pain or pressure. She states that her lower extremity edema started worsening about a week ago. She does note that she was also having a headache. She denies any fever, chills, nausea, vomiting, diarrhea. Her shortness of breath was associated with orthopnea as well. When EMS got to the patient her SaO2 was 79% on room air. She does not wear oxygen at home. She has been taking her Lasix as prescribed per the patient's report. She states since being in the emergency department her shortness of breath has significantly improved. She states her lower extremity edema has resolved. And she still declines having any chest pain or chest pressure. [facility] History I have reviewed the patient's past medical history: Yes Medical History: Reports:: Atherosclerotic Heart Disease, Congestive Heart Failure, Coronary Artery Disease, Hyperlipidemia, Hypertension, Renal Insufficiency, Valvular Heart Disease Denies:: Cancer, Diabetes Mellitus Type 1, Diabetes Mellitus Type 2, Migraine, MRSA, Myocardial Infarction *Have you ever received a pneumonia vaccine?: No *Have you received a flu vaccine this season?: No Other Medical History: Reports: Arthritis. Denies: Hypothyroidism Other Surgeries: Yes: CABG, Cardiac Catheterization, Colonoscopy, , Open Heart Surgery, Other Valve Replacement Amputation: No - *Social History Smoking Status: Current every day smoker Tobacco Type: cigarettes # Packs/Day (cigarettes): 1 Alcohol Intake: never *Occupational Status:: disabled Household Members: children *Travel in the last 8 weeks: None Family Hx:: No significant family history Meds Home Medications Medication Instructions Recorded Confirmed Type Albuterol Sulfate [Albuterol 8.5 gm IH Q6HP PRN #2 hfa.aer.ad 01/10/20 07/07/21 Rx Sulfate Hfa] Aspirin [Low Dose Aspirin EC] 81 mg PO DAILY 01/04/21 07/07/21 History Melatonin 10 mg PO HS 01/04/21 07/08/21 History atorvastatin 40 mg tablet 40 mg PO HS 06/12/21 07/08/21 History carvedilol 12.5 mg tablet 12.5 mg PO BID 06/12/21 07/07/21 History clonidine HCl 0.1 mg tablet 0.1 mg PO BID 06/12/21 07/07/21 History famotidine 20 mg tablet 20 mg PO HS 06/12/21 07/07/21 History ferrous sulfate 325 mg (65 mg 325 mg PO DAILY 06/12/21 07/07/21 History iron) tablet furosemide 20 mg tablet 20 mg PO DAILY 06/12/21 07/07/21 History hydralazine 100 mg tablet 100 mg PO TID 06/12/21 07/08/21 History isosorbide mononitrate 60 mg 60 mg PO DAILY 06/12/21 07/07/21 History tablet,extended release 24 hr multivitamin 1 tab PO DAILY 06/12/21 07/07/21 History polyethylene glycol 3350 17 17 g PO DAILY 06/12/21 07/07/21 History gram/dose oral powder sertraline 50 mg tablet 50 mg PO DAILY 06/12/21 07/07/21 History sodium bicarbonate 650 mg tablet 650 mg PO TID tab 06/12/21 07/07/21 History trazodone 50 mg tablet 50 mg PO HS 06/12/21 07/07/21 History tramadol 50 mg tablet 50 mg PO DAILY PRN #30 tab 06/13/21 07/07/21 Rx Amlodipine Besylate [Amlodipine 10 mg PO DAILY 07/07/21 07/07/21 History 10mg Tab] Budesonide/Formoterol Fumarate 1 puff INHALATION BID 07/07/21 07/07/21 History [Symbicort 80-4.5 Mcg Inhaler] Gabapentin [Gabapentin 100mg Cap] 100 mg PO TID 07/07/21 07/07/21 History Hydrocod/Acet 5/325 mg [[place] 1 tab PO BID 07/07/21 07/07/21 History 32
--- NOTE | 2021-07-10 10:48 | HMH.PTEV ---
Physical Therapy Evaluation Rehab PT IP Evaluation Start: 07/10/21 09:05 Freq: ONCE Status: Active Protocol: Document 07/10/21 10:31 PWBHARAT (Rec: 07/10/21 10:48 PWBHARAT [id number]) Subjective/History History History This is the initial evaluation for Divya Brown. Pt is a 55 y /o female admitted to [facility] for SOA that had been occuring over the ast few weeks. Pt came from [facility]. Pt was on supplemental O2 and sitting upright in bed upon arrival. - note done by Kelly Choi, SPT Subjective Subjective Pt states she was living at [facility] before admission to [facility]. Pt states she was independent with all ADL's and ambulation prior to this medical episode. Pt states she did not use any AD to get around. Pt reports that she wants to return back to [facility] after d/c from [facility]. Rehab PT IP Eval Objective Appearance Patient Behavior Appropriate,Cooperative Patient Orientation Place,Name,Birthday,Year, Situation Difficulty following instructions none Speech Pattern Clear,Appropriate,Coherent Ambulation Patient Able to Ambulate Yes Ambulation Observation IP General Gait Pattern Observation No Deviations/Normal Ambulation Distance (feet) 25 Ambulation Assistive Device None Ambulation Ability Supervision/Stand by Balance Ability to Arise Able, w/o using arms Sitting Balance Steady, safe Standing Balance Narrow stance w/o support Dynamic Sitting Balance Ability Normal Dynamic Standing Balance Ability Normal Transfers Bed Transfer Ability Supervision/Stand by Chair Transfer Ability Supervision/Stand by Sit to Stand Bed Transfer Ability Supervision/Stand by Sit to Stand Chair Transfer Ability Supervision/Stand by Rehab PT IP prob,goals,plan Problems Date of Evaluation: 07/10/21 PT IP Problems Other Other Pt Problem Cardiovascular/pulmonary Rehab Potential Rehab Potential Innapropriate for Skilled Therapy Equipment Needs Assistive Devices None / NA Discharge Plan PT Discharge Plan Pt is not appropriate for
--- NOTE | 2021-07-10 10:53 | PC.NURSE ---
reapplied oxygen at 1L. sats were 92%. No SOA
--- NOTE | 2021-07-10 11:20 | PC.NURSE ---
echo at bedside.
--- NOTE | 2021-07-10 16:03 | PC.NURSE ---
reassessment completed at this time. no changed. lungs remains cta and slightly diminished. bowels active x4. 1 liter of oxygen on- unable to wean. oxygen sats drop to low 90's. pt denies pain. reports mild soa at times this afternoon. no apparent distress. no edema noted. prominent heart murmur noted. iv saline locked. no needs voiced.
--- NOTE | 2021-07-10 18:40 | PC.NURSE ---
pt has had adequate urinary output today
[2021-07-11] VITALS: BP 128/67; PULSE 70; PULSE 72; RESP 17; TEMP 36.7; O2SAT 94
[2021-07-11 04:00] VITALS: PULSE 70
[2021-07-11 04:05] VITALS: BP 151/81; PULSE 67; RESP 18; TEMP 36.7; O2SAT 95
--- NOTE | 2021-07-11 04:21 | PC.NURSE ---
PT HAS RESTED WELL THIS SHIFT. NO SOB OR CHEST PAIN REPORTED THROUGH THE NIGHT. LUNGS CTAB. BOWELS ACTIVE X4 QUADRANTS. HEART MURMUR AUDIBLE. PT SUSTAINS SATISFACTORY O2 (95%) SAT ON 1L OF O2. ATTEMPTED TWICE TO WEAN FROM O2. WHILE ON RA, PT O2 SAT DROPPED TO 88-90%. 1L PLACED BACK ON PATIENT AND O2 SAT RETURNED TO >93%. PT REPORTS NO SOB WHEN ON ROOM AIR. NO EDEMA NOTED TO EXTREMITIES. PT AMBULATES INDEPENDENTLY. CALL LIGHT IN REACH.
[2021-07-11 04:41] VITALS: BMI 29.4
[2021-07-11 07:08] LABS: Basophils # 0.1 K/mm3 (0-0.2); Basophils % 0.8 % (0.1-2.0); Eosinophils # 0.2 K/mm3 (0.0-0.4); Eosinophils % 2.5 % (0.1-12.0); Hematocrit 30.9 % (37.0-47.0); Hemoglobin 9.9 g/dL (12.2-16.2); Lymphocytes # 1.2 K/mm3 (0.7-4.5); Mean Corpuscular Hemoglobin 27.1 pg (27.0-31.2); Mean Corpuscular Volume 84.9 fl (81-99); Mean Platelet Volume 7.6 fl (7.4-10.4); Monocytes # 0.5 K/mm3 (0.1-1.0); Monocytes % 6.6 % (1.7-9.3); Neutrophils # 5.2 K/mm3 (1.8-7.8); Neutrophils % 73.1 % (37.0-80.0); Platelet Count 254 K/mm3 (142-424); Red Blood Count 3.65 M/mm3 (4.20-5.40); White Blood Count 7.1 K/mm3 (4.8-10.8)
[2021-07-11 07:20] LABS: Chloride 111 mmol/L (98-107)
[2021-07-11 07:21] LABS: Sodium 141 mmol/L (136-145)
[2021-07-11 07:23] LABS: Blood Urea Nitrogen 28 mg/dl (7-17); Creatinine Clearance Estimated 25 mL/min (50-200); Estimated Glomerular Filt Rate 16 ml/min (>60); GFR (African American) 19 ML/MIN (>60)
[2021-07-11 07:24] LABS: Calcium 9.2 mg/dl (8.4-10.2); Carbon Dioxide 23 mmol/L (22.0-30.0); Glucose 99 mg/dl (74-100)
[2021-07-11 08:00] VITALS: BP 145/70; PULSE 75; RESP 16; TEMP 36.9; O2SAT 95
--- NOTE | 2021-07-11 09:02 | PC.NURSE ---
at bs to see pt. (rounding)
--- NOTE | 2021-07-11 09:04 | PC.NURSE ---
Per Mynor (DIVINA) pt will be discharged to [place] today.
[2021-07-11 09:06] VITALS: O2SAT 95
[2021-07-11 09:07] VITALS: O2SAT 95
--- NOTE | 2021-07-11 09:23 | HMH.DCSUM ---
General - General Admission date:: 07/07/21 Discharge date: 07/11/21 HPI H[facility] pt presented with sob - SOA for the past 2-3 weeks, states for the past couple days she has only been able to take approx 5 steps before she was out of breath. EMS reports pt SaO2 79% on RA at their arrival to pt. Pt arrives to ED on 3L per NC. Pt reports hx of COPD and CHF. Divya is a 55yo female with a past medical history significant for COPD, CHF, stage IV renal disease is presenting for chief complaint of worsening shortness of breath. Patient reports that for the past 1 year, she has been unable to take more than 5 steps without feeling short of air. In the past 1 week, this is worsened and patient has worsening lower extremity edema. She states that she usually has more swelling in her left lower extremity and this is not new. Patient is also complaining of a headache which feels like her usual headache just worse in severity. Patient otherwise feels well and denies fever, congestion, sore throat, new cough, hemoptysis, orthopnea, current chest pain, abdominal pain, nausea, vomiting, changes in GI/, dysuria. She usually does not have an oxygen requirement at home. She states she does take Lasix at home and has been taking her medicine as prescribed. Of note, patient had a CT scan done yesterday which showed an aortic aneurysm. pt was admitted for eval and treatment - Hospital Course Hospital Course: Divya is a 55yo female with a past medical history significant for COPD, CHF, stage IV renal disease is presenting for chief complaint of worsening shortness of breath. Patient reports that for the past 1 year, she has been unable to take more than 5 steps without feeling short of air. In the past 1 week, this is worsened and patient has worsening lower extremity edema. She states that she usually has more swelling in her left lower extremity and this is not new. Patient is also complaining of a headache which feels like her usual headache just worse in severity. Patient otherwise feels well and denies fever, congestion, sore throat, new cough, hemoptysis, orthopnea, current chest pain, abdominal pain, nausea, vomiting, changes in GI/, dysuria. She usually does not have an oxygen requirement at home. She states she does take Lasix at home and has been taking her medicine as prescribed. Of note, patient had a CT scan done yesterday which showed an aortic aneurysm. pt was admitted for eval and treatment - 07/07/21 CXR: IMPRESSION: Left-sided pleural effusion with bibasilar atelectasis or infiltrate. Cardiomegaly Dictated by: Keenan Peterson MD Cardiology has seen and recommends: Plan: 1. The patient was admitted to the hospital for progressively worsening shortness of breath and an acute exacerbation of her diastolic congestive heart failure. The patient states since being in the hospital her shortness of breath is significantly improved and her bilateral lower extremity edema has resolved. 2. The patient is on some medications that can worsen her lower extremity edema. We will stop her Norvasc and stop clonidine per Dr. Archibald. She will remain on her carvedilol and hydralazine since she has had a history of cardiomyopathy. 3. The patient does have a history of coronary artery disease with a VILLAGOMEZ to the LAD. She denies any chest pain or pressure. No plans for invasive cardiac testing at this time. 4. The patient is status post aortic valve replacement. 5. Her blood pressure is well controlled at this time. We will continue to follow. 6. Her LDL goal is less than 55. 7. The patient had a CT chest without contrast last week. This showed a thoracic aneurysm at 5.1 cm. Milton Araujo PA-C, did contact Dr. Roberts's office, who is with CT surgery, and he would like to see the patient because of her thoracic aneurysm. The patient has been set up for an appointment on July 27, 2021 at 9:40
--- NOTE | 2021-07-11 10:31 | HMH.PNCARD ---
Subjective Date: 07/11/21 Time: 10:00 Principal diagnosis: chf, ckd Interval history: This is a 55-year-old white female who presented to the emergency department with complaints of shortness of breath. The patient does have chronic kidney disease as well. She was admitted to the hospital for CHF and her chronic kidney disease. She states that since being in the hospital her shortness of breath has significantly improved. She denies any chest pain or pressure. She denies any lower extremity edema. She denies any fever, chills, nausea, vomiting, diarrhea, PND or orthopnea. Exam Vital signs and Labs for Last 24 Hours: Temp Pulse Resp BP Pulse Ox 98.5 F 75 16 145/70 H 95 07/11/21 08:00 07/11/21 08:00 07/11/21 08:00 07/11/21 08:00 07/11/21 09:07 Laboratory Results - last 24 hr 07/11/21 06:40: WBC 7.1, RBC 3.65 L, Hgb 9.9 L, Hct 30.9 L, MCV 84.9, MCH 27.1, MCHC 32.0, RDW 15.0, Plt Count 254, MPV 7.6, Neut % (Auto) 73.1, Lymph % (Auto) 17.0, [place] % (Auto) 6.6, Eos % (Auto) 2.5, Baso % (Auto) 0.8, Neut # (Auto) 5.2, Lymph # (Auto) 1.2, [place] # (Auto) 0.5, Eos # (Auto) 0.2, Baso # (Auto) 0.1 07/11/21 06:40: Sodium 141, Potassium 4.0, Chloride 111 H, Carbon Dioxide 23, Anion Gap 11.0, BUN 28 H, Creatinine 3.10 H, Estimated Creat Clear 25, Estimated GFR 16 L*, Est GFR ( Amer) 19 L*, Glucose 99, Calcium 9.2 I & O for Last 24 hours: Intake & Output 07/08/21 07/09/21 07/10/21 07/11/21 23:59 23:59 23:59 23:59 Intake Total 840 / 1080 960 / 960 Balance 840 / 1080 960 / 960 Weight 182 lb 178 lb 8 oz 174 lb 2.643 oz 172 lb 4.8 oz Narrative: Monitor strip is sinus rhythm. Limited echo shows: 1. Limited echocardiogram was performed, left ventricle is mildly low normal size, concentric left ventricle hypertrophy, visually estimated ejection fraction 55% with no regional wall motion abnormality. 2. There is bioprosthetic valve noted in the mid position, hemodynamics were not obtained. 3. No significant pericardial effusion noted. - Constitutional no acute distress, average body habitus - *Routine HEENT Exam Head: Present: normocephalic, atraumatic Eye: Present: EOMI, PERRL ENT: Present: mucous membranes moist - *Routine Neck Exam Present: supple, full ROM, carotid bruit, normal carotid upstroke. Absent: JVD, lymphadenopathy - *Routine Respiratory Exam Present: CTA bilaterally - *Routine Cardiovascular Exam Present: RRR, Normal S1, Normal S2, murmur - *Routine Abdominal Exam Present: soft, normoactive bowel sounds. Absent: tenderness, distended, rebound - *Routine Extremities Exam Present: full ROM, pulses intact, normal capillary refill. Absent: cyanosis, clubbing, edema - *Routine Skin Exam Present: intact, warm. Absent: erythema, rash - *Routine Neurological Exam Present: alert, oriented X3, CN II-XII intact. Absent: sensory deficit, motor deficit Progress Note: A&P (1) Acute on chronic diastolic (congestive) heart failure Status: Acute (2) Obesity (BMI 30-39.9) Status: Acute (3) Anemia Status: Acute (4) Hypertension Status: Acute (5) CAD (coronary artery disease) Status: Chronic (6) Chronic kidney disease Status: Chronic (7) History of tricuspid valve repair Problem details: 05/11/2020 [facility] Status: Chronic (8) Aortic valve replaced Status: Acute (9) Thoracic aortic aneurysm Status: Acute (10) CKD (chronic kidney disease) stage 4, GFR 15-29 ml/min Status: Acute Assessment and Plan for All Diagnoses:: Plan: 1. The patient was admitted to the hospital for progressively worsening shortness of breath and acute exacerbation of her acute on chronic diastolic congestive heart failure. The patient has a significantly improved with just putting oxygen on. The patient has been unable to be weaned off of oxygen completely and will go to a retirement with oxygen via nasal cannula. 2. The patient does have chronic kidney diseas
--- NOTE | 2021-07-11 12:06 | PC.NURSE ---
Report called to Kristina SHAFFER) at [place].
== END 2021-07-11 13:45 | DRG 291 ==
LOC: ER 15:05 → 2ND 18:30 → OB 07-09 16:12
PROVIDERS: Nurse Practitioner Family; Admitting Provider Internal Medicine Adolescent Medicine; Emergency Provider Emergency Medicine; PCP Emergency Medicine; Visit Provider Emergency Medicine
DX: I50.41 Acute combined systolic (congestive) and diastolic (congestive) heart failure (principal); N18.4 Chronic kidney disease, stage 4 (severe); F17.210 Nicotine dependence, cigarettes, uncomplicated; I25.708 Atherosclerosis of coronary artery bypass graft(s), unspecified, with other forms of angina pectoris; Z95.2 Presence of prosthetic heart valve; I13.0 Hypertensive heart and chronic kidney disease with heart failure and stage 1 through stage 4 chronic kidney disease, or unspecified chronic kidney disease; I25.118 Atherosclerotic heart disease of native coronary artery with other forms of angina pectoris
CPT/HCPCS: 36415; 71045; 71250; 80048; 80053; 83735; 83880; 84100; 84436; 84443; 84484; 85025; 93306; 93308; 96374; 96375; 97161; 99284; C9803; U0003; U0005

== ENCOUNTER → 2021-08-07 12:44 | Outpatient (POV) | payer OTHER, SELFPAY | PROVIDERS: Visit Provider Internal Medicine Nephrology | DX: Z00.00 Encounter for general adult medical examination without abnormal findings (principal) ==

== ENCOUNTER → 2021-10-06 14:54 | Outpatient (CLI) | payer MEDICAID, SELFPAY ==
[2021-10-06 15:03] LABS: Microscopic, Urine URINE MICROSCOPIC (MICROSCOPIC)
[2021-10-06 15:51] LABS: Appearance,Urine CLEAR (Clear); Bilirubin,Urine Negative (Negative); Blood, Urine Negative (Negative); Color,Urine YELLOW (Yellow); Glucose,Urine (UA) Negative (Negative); Ketones,Urine Negative (Negative); Leukocyte Esterase,Urine TRACE (Negative); Nitrate,Urine Negative (Negative); Protein,Urine 2+ (Negative); Urobilinogen,Urine 0.2 EU/dl (0.2)
[2021-10-06 15:53] LABS: Hematocrit 30.5 % (37.0-47.0); Hemoglobin 10.2 g/dL (12.2-16.2); Mean Corpuscular HGB Conc 33.4 g/dL (31.8-35.4); Mean Corpuscular Hemoglobin 27.9 pg (27.0-31.2); Mean Corpuscular Volume 83.4 fl (81-99); Platelet Count 159 K/mm3 (142-424); Red Blood Count 3.65 M/mm3 (4.20-5.40); Red Cell Distribution Width 16.2 % (11.5-17.5); White Blood Count 4.9 K/mm3 (4.8-10.8)
[2021-10-06 16:04] LABS: Bacteria,Urine Trace /lpf
[2021-10-06 17:00] LABS: Creatinine,Urine Random 61 mg/dL (Not Estab.)
[2021-10-06 17:34] LABS: Chloride 101 mmol/L (98-107)
[2021-10-06 17:35] LABS: Albumin Level 4.3 g/dl (3.5-5.0); Potassium 4.1 mmoL/L (3.5-5.1); Sodium 137 mmol/L (136-145)
[2021-10-06 17:37] LABS: Blood Urea Nitrogen 38 mg/dl (7-17); Estimated Glomerular Filt Rate 14 ml/min (>60); GFR (African American) 17 ML/MIN (>60)
[2021-10-06 17:38] LABS: Anion Gap 17.1 mEq/L (5-15); Calcium 8.6 mg/dl (8.4-10.2); Carbon Dioxide 23 mmol/L (22.0-30.0); Glucose 73 mg/dl (74-100); Phosphorous 4.1 mg/dl (2.5-4.5)
[2021-10-06 18:15] LABS: Ferritin 51.8 ng/ml (11.1-264)
[2021-10-09 11:48] LABS: Total Iron Binding Capacity 287 ug/dL (265-497)
== END ==
PROVIDERS: Visit Provider Internal Medicine Nephrology
DX: N18.4 Chronic kidney disease, stage 4 (severe) (principal)
CPT/HCPCS: 36415; 80069; 81001; 82570; 82728; 83540; 83550; 84155; 85014; 85018; 85048; 85049

== ENCOUNTER 2021-10-13 19:27 | Emergency (ER) | payer MEDICAID, SELFPAY ==
[2021-10-13 19:14] VITALS: BP 200/102; PULSE 72; RESP 19; TEMP 36.9; O2SAT 93; BMI 30.5
[2021-10-13 19:21] VITALS: BP 200/97; PULSE 76; O2SAT 89
[2021-10-13 19:30] VITALS: BP 196/102; PULSE 75; O2SAT 91
--- NOTE | 2021-10-13 19:49 | ECG_ITS ---
APPROVED REPORT Exam: Resting ECG HR:62 bpm ECG Measurements Heart Rate 62 AXES MT 166 P 89 QRSd 96 QRS 76 QT 478 T 251 QTc 484 Conclusion SINUS RHYTHM Old anteroseptal and Twave changes ABNORMAL ECG UNCONFIRMED REPORT Electronically signed by : Duke Montez MD 11/19/2021 15:10:24
[2021-10-13 20:00] VITALS: BP 213/108; PULSE 74; O2SAT 87
[2021-10-13 20:17] LABS: Basophils # 0.1 K/mm3 (0-0.2); Basophils % 0.9 % (0.1-2.0); Eosinophils # 0.2 K/mm3 (0.0-0.4); Eosinophils % 2.9 % (0.1-12.0); Hematocrit 30.7 % (37.0-47.0); Hemoglobin 10.1 g/dL (12.2-16.2); Lymphocytes # 1.2 K/mm3 (0.7-4.5); Lymphocytes % 19.3 % (10-50); Mean Corpuscular Hemoglobin 27.4 pg (27.0-31.2); Mean Platelet Volume 8.8 fl (7.4-10.4); Monocytes # 0.5 K/mm3 (0.1-1.0); Monocytes % 7.8 % (1.7-9.3); Neutrophils # 4.3 K/mm3 (1.8-7.8); Neutrophils % 69.1 % (37.0-80.0); Platelet Count 204 K/mm3 (142-424); Red Cell Distribution Width 16.9 % (11.5-17.5); White Blood Count 6.3 K/mm3 (4.8-10.8)
--- NOTE | 2021-10-13 20:22 | XR_ITS ---
PROCEDURE INFORMATION: Exam: XR Chest Exam date and time: 10/13/2021 8:49 PM Age: 56 years old Clinical indication: Other: Hypertension; Prior surgery; Surgery date: 6+ months; Surgery type: Coronary bypass; Additional info: HTN TECHNIQUE: Imaging protocol: XR of the chest. Views: 2 views. COMPARISON: CR XR CHEST PORTABLE 07/07/2021 3:15 PM FINDINGS: Lungs: Granuloma within the right upper lung zone. Mild interstitial coarsening as seen on prior exam. No consolidation. Pleural spaces: No pleural effusion. No pneumothorax. Heart/Mediastinum: Stable cardiac contours. Bones/joints: Median sternotomy wires. IMPRESSION: Chronic changes without definite acute cardiopulmonary process.
[2021-10-13 20:24] LABS: Chloride 105 mmol/L (98-107); Potassium 3.5 mmoL/L (3.5-5.1); Sodium 139 mmol/L (136-145)
[2021-10-13 20:27] LABS: Alanine Aminotransferase 16 U/L (12-78); Albumin Level 3.7 g/dl (3.5-5.0); Alkaline Phosphatase 70 U/L (38-126); Anion Gap 11.5 mEq/L (5-15); Aspartate Amino Transferase 28 U/L (14-36); Bilirubin,Direct 0.4 mg/dl (0.0-0.4); Bilirubin,Indirect 0.1 mg/dL (0.0-0.9); Bilirubin,Total 0.5 mg/dl (0.2-1.3); Bilirubin,Unconjugated 0.1 mg/dL (0.0-1.1); Blood Urea Nitrogen 29 mg/dl (7-17); Calcium 8.1 mg/dl (8.4-10.2); Carbon Dioxide 26 mmol/L (22.0-30.0); Creatinine Clearance Estimated 24 mL/min (50-200); Estimated Glomerular Filt Rate 14 ml/min (>60); GFR (African American) 17 ML/MIN (>60); Glucose 114 mg/dl (74-100); Total Protein,Serum 7.2 g/dl (6.3-8.2)
[2021-10-13 20:28] LABS: Magnesium 2.5 mg/dl (1.6-2.3)
[2021-10-13 20:30] VITALS: BP 193/98; PULSE 73; O2SAT 89
[2021-10-13 20:42] LABS: Troponin I 0.02 ng/ml (0.00-0.034)
[2021-10-13 20:47] LABS: Procalcitonin 0.033 ng/mL (0.0-2.0)
--- NOTE | 2021-10-13 20:56 | PC.NURSE ---
pt to xr for chest xray
[2021-10-13 21:36] LABS: C-Reactive Protein 2.5 mg/L (0-4)
[2021-10-13 21:41] LABS: Erythrocyte Sedimentation Rate 100 mm/hr (0-30)
--- NOTE | 2021-10-13 21:41 | HMH.EDHA ---
ED Disposition Clinical Impression: CKD (chronic kidney disease) stage 4, GFR 15-29 ml/min, Hypertensive emergency Headache Qualifiers: Headache type: unspecified Headache chronicity pattern: acute headache Intractability: not intractable Qualified Code(s): R51.9 - Headache, unspecified Disposition: Home, Self-Care Condition on Discharge: Good Instructions: DI for Headache Additional Instructions: call pcp for follow up Referrals: Lucio Irene MD [Primary Care Provider] - - Critical Care Critical Care Time: No Attestation: On 10/13/21, the high probability of a clinically significant, sudden or life threatening deterioration of the following system(s) required my full and direct attention, intervention and personal management. The time I documented below is in addition to time spent performing reported procedures but includes the following listed in this critical care notation. Medical Decision Making - Medical Records Medical records reviewed: Yes: I reviewed the patient's medical records. - Norris Inquiry Pt receiving controlled substance: No Vital Signs: 10/13/21 19:14 10/13/21 19:21 10/13/21 19:30 Temperature 98.4 F Temperature Source Oral Pulse Rate 76 75 Pulse Rate [Right] 72 Respiratory Rate 19 Blood Pressure 200/97 H 196/102 H Blood Pressure [Right Arm] 200/102 H Blood Pressure Mean [Right Arm] 134 Blood Pressure Source [Right Arm] Manual Cuff/ Auscultation 02 Sat by Pulse Oximetry 93 L 89 L 91 L Oxygen Delivery Method Room Air Room Air Room Air 10/13/21 20:00 10/13/21 20:30 Temperature Temperature Source Pulse Rate 74 73 Pulse Rate [Right] Respiratory Rate Blood Pressure 213/108 H 193/98 H Blood Pressure [Right Arm] Blood Pressure Mean [Right Arm] Blood Pressure Source [Right Arm] 02 Sat by Pulse Oximetry 87 L 89 L Oxygen Delivery Method Room Air Room Air - Lab Data Lab results reviewed: Yes: I reviewed the patient's lab results. Lab Results 10/13/21 19:33: WBC 6.3, RBC 3.70 L, Hgb 10.1 L, Hct 30.7 L, MCV 83.0, MCH 27.4, MCHC 33.0, RDW 16.9, Plt Count 204, MPV 8.8, Neut % (Auto) 69.1, Lymph % (Auto) 19.3, [place] % (Auto) 7.8, Eos % (Auto) 2.9, Baso % (Auto) 0.9, Neut # (Auto) 4.3, Lymph # (Auto) 1.2, [place] # (Auto) 0.5, Eos # (Auto) 0.2, Baso # (Auto) 0.1, ESR 100 H 10/13/21 19:33: Sodium 139, Potassium 3.5, Chloride 105, Carbon Dioxide 26, Anion Gap 11.5, BUN 29 H, Creatinine 3.30 H, Estimated Creat Clear 24, Estimated GFR 14 L*, Est GFR ( Amer) 17 L*, Glucose 114 H, Calcium 8.1 L, Magnesium 2.5 H, Total Bilirubin 0.5, Direct Bilirubin 0.4, Conjugated Bilirubin 0.0, Indirect Bilirubin 0.1, Unconjugated Bilirubin 0.1, AST 28, ALT 16, Alkaline Phosphatase 70, Troponin I 0.02, C-Reactive Protein 2.5, Total Protein 7.2, Albumin 3.7, Procalcitonin 0.033 Result diagrams: 10/13/21 19:33 10/13/21 19:33 Orders (Tests/Meds): ED MEDICATIONS Generic Name Dose Route Start Last Admin Trade Name Freq PRN Reason Stop Dose Admin Sodium Chloride 1,000 mls @ 999 mls/hr 10/13/21 20:15 10/13/21 20:16 Sod Chlor 0.9% 1000ml Bag IV 10/13/21 21:15 999 mls/hr .Q1H1M KATHY Administration Discontinued Medications Generic Name Dose Route Start Last Admin Trade Name Freq PRN Reason Stop Dose Admin Acetaminophen 1,000 mg 10/13/21 20:09 10/13/21 20:16 Acetaminophen 500mg Tab PO 10/13/21 20:10 1,000 mg ONCE ONE Administration Clonidine HCl 0.1 mg 10/13/21 20:09 10/13/21 20:16 Clonidine 0.1mg Tablet PO 10/13/21 20:10 0.1 mg ONCE ONE Administration Clonidine HCl 0.1 mg 10/13/21 22:05 10/13/21 22:06 Clonidine 0.1mg Tablet PO 10/13/21 22:06 0.1 mg ONCE ONE Administration ORDERS Category Date Time Status Troponin I Q3H Lab 10/13/21 23:15 Ordered Troponin I Q3H Lab 10/14/21 02:15 Ordered - Radiology Data #1 Image(s): Chest Image Reviewed: Yes I have reviewed radiologist's interpretation Pre
[2021-10-13 22:46] VITALS: BP 140/105; PULSE 89; RESP 18; TEMP 36.7; O2SAT 99
== END 2021-10-13 23:10 | disposition home or self-care (01) ==
PROVIDERS: Emergency Provider Emergency Medicine; PCP Emergency Medicine
DX: I13.0 Hypertensive heart and chronic kidney disease with heart failure and stage 1 through stage 4 chronic kidney disease, or unspecified chronic kidney disease (principal); I50.9 Heart failure, unspecified; N18.30 Chronic kidney disease, stage 3 unspecified; I71.4 Abdominal aortic aneurysm, without rupture; I25.119 Atherosclerotic heart disease of native coronary artery with unspecified angina pectoris; R09.89 Other specified symptoms and signs involving the circulatory and respiratory systems; E78.5 Hyperlipidemia, unspecified; R51.9 Headache, unspecified; F41.9 Anxiety disorder, unspecified; F17.210 Nicotine dependence, cigarettes, uncomplicated; Z79.51 Long term (current) use of inhaled steroids; Z79.899 Other long term (current) drug therapy; Z95.2 Presence of prosthetic heart valve
CPT/HCPCS: 71046; 80048; 80076; 83735; 84145; 84484; 85025; 85651; 86140; 93005; 96361; 96365; 99284

== ENCOUNTER 2021-10-24 10:02 | Inpatient (IN) | payer MEDICAID, SELFPAY ==
[2021-10-24] VITALS (16 sets, daily range): BP systolic 102–191; BP diastolic 66–100; PULSE 64–83; RESP 15–19; TEMP 36.8–36.9; O2SAT 90–99; BMI 29.8; BMI 33.5
--- NOTE | 2021-10-24 10:11 | XR_ITS ---
FINAL REPORT CLINICAL HISTORY: soa, productive cough, smoker COMPARISON: October 13, 2021 FINDINGS: A single view of the chest was obtained. There is evidence of median sternotomy. The heart size normal. There is partially improved pulmonary vascular congestion. There are multiple calcified granulomas in the right upper lobe. There is a small left pleural effusion which is stable. IMPRESSION: Improved pulmonary vascular congestion with a stable left pleural effusion. Reviewed, Interpreted and Dictated by Som Byrne III, MD Transcribed by Vika Knox Authenticated by Som Byrne III, MD on 10/24/2021 11:28:43 AM [facility]
--- NOTE | 2021-10-24 10:12 | HMH.EDSOB ---
ED Disposition Clinical Impression: COPD exacerbation, Hypoxemia Disposition: Admitted as Observation Condition on Discharge: Good Referrals: Lucio Irene MD [Primary Care Provider] - - Critical Care Critical Care Time: No Attestation: On , the high probability of a clinically significant, sudden or life threatening deterioration of the following system(s) required my full and direct attention, intervention and personal management. The time I documented below is in addition to time spent performing reported procedures but includes the following listed in this critical care notation. Medical Decision Making - Medical Records Medical records reviewed: Yes: I reviewed the patient's medical records. - Norris Inquiry Pt receiving controlled substance: No Vital Signs: 10/24/21 10:08 10/24/21 10:10 10/24/21 10:19 Temperature 98.2 F 98.2 F Temperature Source Oral Oral Pulse Rate 78 70 Pulse Rate [Left Radial] 79 Respiratory Rate 19 17 18 Blood Pressure 181/95 H 123/70 Blood Pressure [Right Arm] 181/95 H Blood Pressure Mean [Right Arm] 123 Blood Pressure Source Automatic Cuff Automatic Cuff Blood Pressure Position Supine Supine 02 Sat by Pulse Oximetry 97 97 90 L Oxygen Delivery Method Room Air Room Air Nasal Cannula Oxygen Flow Rate (LPM) 2 - Lab Data Lab Results 10/24/21 10:10: WBC 4.5 L, RBC 4.17 L, Hgb 11.5 L, Hct 34.9 L, MCV 83.7, MCH 27.5, MCHC 32.9, RDW 16.6, Plt Count 163, MPV 8.5, Neut % (Auto) 78.8, Lymph % (Auto) 11.1, [place] % (Auto) 8.4, Eos % (Auto) 0.6, Baso % (Auto) 1.1, Neut # (Auto) 3.6, Lymph # (Auto) 0.5 L, [place] # (Auto) 0.4, Eos # (Auto) 0.0, Baso # (Auto) 0.1 10/24/21 10:10: Sodium 139, Potassium 3.8, Chloride 104, Carbon Dioxide 28, Anion Gap 10.8, BUN 27 H, Creatinine 3.30 H, Estimated Creat Clear 24, Estimated GFR 14 L*, Est GFR ( Amer) 17 L*, Glucose 116 H, Calcium 9.3, Total Bilirubin 0.9, AST 30, ALT 20, Alkaline Phosphatase 86, Troponin I 0.03, Total Protein 8.5 H, Albumin 4.5, Globulin 4.0 H, Albumin/Globulin Ratio 1.1 Result diagrams: 10/24/21 10:10 10/24/21 10:10 Orders (Tests/Meds): ED MEDICATIONS Generic Name Dose Route Start Last Admin Trade Name Brennenq PRN Reason Stop Dose Admin Acetaminophen 650 mg 10/24/21 12:53 Acetaminophen 325mg Tab PO 11/23/21 12:52 Q4HP PRN Fever or Mild Pain Ceftriaxone Sodium 1 gm/ 50 mls @ 100 mls/hr 10/24/21 13:00 Sodium Chloride IV 11/07/21 12:59 Q24H KAHTY Azithromycin 500 mg/ Sodium 250 mls @ 250 mls/hr 10/24/21 13:00 Chloride IV 11/07/21 12:59 Q24H KATHY Ondansetron HCl 4 mg 10/24/21 12:53 Ondansetron 4mg/2ml Vial IV 11/23/21 12:52 Q8HP PRN Nausea Discontinued Medications Generic Name Dose Route Start Last Admin Trade Name Brennenq PRN Reason Stop Dose Admin Albuterol/Ipratropium 6 ml 10/24/21 10:10 10/24/21 10:32 Ipratropium/Albuterol 3 Ml Neb IH 10/24/21 10:11 6 ml ONCE ONE Administration Methylprednisolone Sodium Succinate 125 mg 10/24/21 10:11 10/24/21 10:31 Methylprednisolone Sod Succ 125mg Vial IV 10/24/21 10:12 125 mg ONCE ONE Administration ORDERS Category Date Time Status BNP [Brain Natriuretic Peptide] Stat Lab 10/24/21 10:10 Received Lactic Acid Stat Lab 10/24/21 12:49 Ordered Rapid PCR Covid and Flu A/B Stat Lab 10/24/21 12:31 Received Blood Culture Stat Micro 10/24/21 12:49 Ordered ECG Request by /Nse Stat Y 10/24/21 10:11 Ordered - ECG Data Tracing #1 I reviewed this ECG and interpreted as documented below: ekg by me nsr, sinus arrythmia, lae, no st elev Medical Decision Narrative: 1258pm reeval requiring 4lnc for o2 sat discussed with Dr Irene accepts obs here Resp/SOB HPI - General Stated Complaint: SOA Time Seen by Provider: 10/24/21 10:12 Source of Information: Patient Limitations: No Limitations - History of Present Illness few days soa, h/o copd Onset (ago): day(
[2021-10-24 10:19] LABS: Basophils # 0.1 K/mm3 (0-0.2); Basophils % 1.1 % (0.1-2.0); Eosinophils % 0.6 % (0.1-12.0); Hematocrit 34.9 % (37.0-47.0); Hemoglobin 11.5 g/dL (12.2-16.2); Lymphocytes # 0.5 K/mm3 (0.7-4.5); Lymphocytes % 11.1 % (10-50); Mean Corpuscular HGB Conc 32.9 g/dL (31.8-35.4); Mean Corpuscular Hemoglobin 27.5 pg (27.0-31.2); Mean Corpuscular Volume 83.7 fl (81-99); Mean Platelet Volume 8.5 fl (7.4-10.4); Monocytes # 0.4 K/mm3 (0.1-1.0); Monocytes % 8.4 % (1.7-9.3); Neutrophils # 3.6 K/mm3 (1.8-7.8); Neutrophils % 78.8 % (37.0-80.0); Platelet Count 163 K/mm3 (142-424); Red Blood Count 4.17 M/mm3 (4.20-5.40); Red Cell Distribution Width 16.6 % (11.5-17.5); White Blood Count 4.5 K/mm3 (4.8-10.8)
[2021-10-24 10:28] LABS: Alanine Aminotransferase 20 U/L (12-78); Albumin Level 4.5 g/dl (3.5-5.0); Albumin/Globulin Ratio 1.1 (1.1-1.8); Alkaline Phosphatase 86 U/L (38-126); Anion Gap 10.8 mEq/L (5-15); Aspartate Amino Transferase 30 U/L (14-36); Bilirubin,Total 0.9 mg/dl (0.2-1.3); Blood Urea Nitrogen 27 mg/dl (7-17); Calcium 9.3 mg/dl (8.4-10.2); Carbon Dioxide 28 mmol/L (22.0-30.0); Chloride 104 mmol/L (98-107); Creatinine Clearance Estimated 24 mL/min (50-200); Estimated Glomerular Filt Rate 14 ml/min (>60); GFR (African American) 17 ML/MIN (>60); Glucose 116 mg/dl (74-100); Potassium 3.8 mmoL/L (3.5-5.1); Sodium 139 mmol/L (136-145); Total Protein,Serum 8.5 g/dl (6.3-8.2)
[2021-10-24 10:40] LABS: Troponin I 0.03 ng/ml (0.00-0.034)
--- NOTE | 2021-10-24 11:15 | ECG_ITS ---
APPROVED REPORT Exam: Resting ECG HR:66 bpm ECG Measurements Heart Rate 66 AXES WA 150 P 119 QRSd 92 QRS 51 QT 489 T 196 QTc 502 Conclusion SINUS RHYTHM WITH MARKED SINUS ARRHYTHMIA Left atrial abnormality with poor R wave progression and ST-T wave changes which are not significantly changed from prior tracings UNCONFIRMED REPORT Electronically signed by : Duke Montez MD 10/26/2021 16:19:46
[2021-10-24 12:40] LABS: Coronavirus 19, PCR Not Detected (NotDetected); Influenza A, PCR Not Detected (NotDetected); Influenza B, PCR Not Detected (NotDetected)
--- NOTE | 2021-10-24 12:43 | PC.NURSE ---
wind up operator paging dr. nicholson, office staff states he is out for lunch
--- NOTE | 2021-10-24 12:47 | PC.NURSE ---
WILL RHOADES speaking with Dr. Irene
--- NOTE | 2021-10-24 12:51 | PC.NURSE ---
notified care management of admission, spoke with
--- NOTE | 2021-10-24 12:55 | PC.NURSE ---
lab at collecting Blood cultures and lactic acid
[2021-10-24 13:10] LABS: NT Pro Brain Natriuretic Pep. 11900 pg/mL (0-125)
[2021-10-24 13:16] LABS: Lactic Acid 0.6 mmol/L (0.7-2.1)
--- NOTE | 2021-10-24 14:39 | HMH.PHAVTE ---
[facility] Pharmacy VTE Monitoring - Patient Demographics Admission date: 10/24/21 Report Date: 10/24/21 Time: 14:39 Allergies/Adverse Reactions: Patient Allergies No Known Allergies Allergy (Verified 10/23/21 10:55) Height: 1.63 m Weight: 78.925 kg Patient Problems: Current Active Problems COPD exacerbation (Acute) Hypoxemia (Acute) - VTE Risk Labs: VTE Related Lab Results Hgb 11.5 g/dL (12.2-16.2) L 10/24/21 10:10 Hct 34.9 % (37.0-47.0) L 10/24/21 10:10 Plt Count 163 K/mm3 (142-424) 10/24/21 10:10 BUN 27 mg/dl (7-17) H 10/24/21 10:10 Creatinine 3.30 mg/dl (0.52-1.04) H 10/24/21 10:10 Estimated Creat Clear 24 mL/min (50-200) 10/24/21 10:10 Clinical Trial Participant: No - Prophylaxis VTE Prophylaxis Ordered?: Yes Types of VTE Prophylaxis: TEDS Knee High
--- NOTE | 2021-10-24 15:05 | PC.NURSE ---
Report called to Logan [facility]
--- NOTE | 2021-10-24 15:28 | PC.NURSE ---
Pt arrived to the floor at this time.
[2021-10-25] VITALS (11 sets, daily range): BP systolic 166–200; BP diastolic 101–110; PULSE 64–89; RESP 16–20; TEMP 36.6–37.1; O2SAT 88–96; BMI 34.1; BMI 34.0
--- NOTE | 2021-10-25 07:36 | HMH.PHAINT ---
MEDICATION RECONCILIATION COMPLETED ON PATIENT USING MAR FROM [facility]. -MAIRA BONILLA, CINDID
--- NOTE | 2021-10-25 08:25 | CA_ITS ---
APPROVED REPORT EXAM: Comprehensive 2D, Doppler, and color-flow Echocardiogram Administrative Assistant: Kacey Lomeli CRT Ht: 4 ft 11 in Wt: 173lbs BSA: 1.73 BP: 123/70 mmHg Indications: COPD, HTN, HLD, CAD, CABG, AVR 2D Dimensions LVOT 1.71 cm (M/F) 1.5-2.5 M-Mode Dimensions RVDd 3.45 cm (0.9-2.6) LA Diam 3.66 cm (1.9-4.0) LVDd 5.24 cm (3.5-5.7) Ao Diam 4.52 cm (2.0-3.7) LVDs 3.62 cm (3.5-5.7) IVSd 1.68 cm (0.6-1.1) PWd 0.91 cm (0.6-1.1) EF (Teich) 58.10% FS 30.90% EDV (Teich) 131.80 mL ESV (Teich) 55.20 mL Conclusion 1. Limited echocardiogram was performed, there was no Doppler or color-flow mapping done. 2. Normal left ventricular size and function with no regional wall motion abnormality. Estimated ejection fraction 55%. 3. No significant pericardial effusion noted. Electronically signed by : Ryan Kamara MD 10/25/2021 10:28:29
--- NOTE | 2021-10-25 09:27 | CT_ITS ---
FINAL REPORT TECHNIQUE: Axial CT images were performed from the lung apices through the upper abdomen. Coronal reformats were submitted. This study was performed with techniques to keep radiation doses as low as reasonably achievable (ALARA). Individualized dose reduction techniques using automated exposure control or adjustment of mA and/or kV according to the patient's size were employed. CLINICAL HISTORY: thoracic aneurysm, pt unable to get contrast due to labs COMPARISON: 07/06/2021 FINDINGS: The patient is status post median sternotomy. There is no axillary adenopathy. There is no hilar or mediastinal mass or adenopathy. 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 This is stable as compared to the prior exam. The ascending aorta is also aneurysmal at 4.7 cm in diameter and is stable. There has been partial improvement of anterior mediastinal fluid which was likely postoperative. There are calcified granulomas in the right lung. There is mild scarring. A small left pleural effusion is present. IMPRESSION: Stable aneurysmal dilatation of the ascending aorta and distal aortic arch. Partial improvement of the anterior mediastinal fluid which was likely postoperative. Stable, small left pleural effusion. Reviewed, Interpreted and Dictated by Som Byrne III, MD Transcribed by Vika Knox Authenticated by Som Byrne III, MD on 10/25/2021 10:44:57 AM [facility]
--- NOTE | 2021-10-25 09:58 | HMH.PTEV ---
Physical Therapy Evaluation Rehab PT IP Evaluation Start: 10/25/21 09:27 Freq: ONCE Status: Active Protocol: Document 10/25/21 09:55 ANGELA (Rec: 10/25/21 09:58 ANGELA [id number]) Subjective/History History History This is the initial IP PT evalaution for Divya Brown. Pt is a 56 y/o female admitted to [facility] for observation of respiratory status and failure . Pt lives in local personal detention, and PLOF was fully Independent Subjective Subjective no complaints from pt Rehab PT IP Eval Objective Appearance Patient Behavior Appropriate,Cooperative Patient Orientation Place,Name,Birthday,Year Difficulty following instructions none Speech Pattern Clear,Appropriate Ambulation Patient Able to Ambulate Yes Ambulation Observation IP General Gait Pattern Observation No Deviations/Normal Ambulation Distance (feet) 30 Ambulation Assistive Device None Ambulation Ability Independent Balance Ability to Arise Able, w/o using arms Sitting Balance Steady, safe Standing Balance Narrow stance w/o support Dynamic Sitting Balance Ability Normal Dynamic Standing Balance Ability Normal Transfers Bed Transfer Ability Independent Chair Transfer Ability Independent Sit to Stand Bed Transfer Ability Independent Sit to Stand Chair Transfer Ability Independent ROM All Extremities PT ROM Status WFL MMT All Extremities PT MMT WFL Rehab PT IP prob,goals,plan Problems Date of Evaluation: 10/25/21 Rehab Potential Rehab Potential Innapropriate for Skilled Therapy Discharge Plan PT Discharge Plan Pt was fully independent with bed mobility, transfers, ambulation, toileting and self -care. No skilled therapy needs at this time. Pt safe to return to personal detention once medically stable G -code Required Yes Eval Complexity Eval Charge Codes 46162 - Low Complexity G Codes PT Current Status Mobility PT Current Status Modifier CH-0% impaired, limited or restricted PT Goal Status Mobility PT Goal Status Modifer CH-0% impaired, limited or restricted
--- NOTE | 2021-10-25 10:01 | HMH.OTEV ---
OT Inpatient Evaluation Rehab OT IP Evaluation Start: 10/25/21 09:27 Freq: ONCE Status: Complete Protocol: Document 10/25/21 09:52 REJI (Rec: 10/25/21 10:01 REJI [id number]) Rehab OT IP Assessment Subjective History 56 year old female brought to ER for COPD exacerbation and Hypoxemia. PMH: Atherosclerotic Heart Disease, Congestive Heart Failure, Coronary Artery Disease, Hyperlipidemia, Hypertension, Renal Insufficiency, Valvular Heart Disease. Patient is a resident at [facility]. Subjective I can get up. Analysis Patient's safety during bed mobility, transfers and toileting/ADLs. Patient completed all tasks independently and good safety awareness. Objective Patient Orientation Person,Place,Name,Birthday, Month,Year Upper Extremity Gross ROM WNL Bed Mobility bed mobility - supine/sit Assist Level Independent Transfer Training Sit/Stand/Pivot Transfer Assist Level Independent Chair Transfer Ability Independent Chair Transfer Technique Sit to/from Ambulatory Chair Transfer Assistive Devices None Performing Toilet Hygiene Ability Independent Overall Commode/Toilet Transfer Ability Independent Commode/Toilet Transfer Technique Sit to/from Ambulatory decrease in endurance No Rehab OT IP prob,goals,plan Problems Date of Evaluation: 10/25/21 Rehab Potential Rehab Potential Innapropriate for Skilled Therapy Discharge Plan OT Discharge Plan Patient inappropriate for skilled OT IP services. Patient is indepependent with ADLs and fx'l mobility with 02 provided. Patient is safe to return to personal [place] [facility]. Eval Complexity Eval Charge Codes 18443 - Low Complexity G Codes G -code Required No PHYSICIAN CERTIFICATION: I certify the specified therapy services for Divya Brown are required, authorized, and reviewed every 30 days.
--- NOTE | 2021-10-25 10:29 | SW/DCPLANNER ---
Addendum entered by Kathya Ghotra 10/27/21 14:20: I have arranged [employer] for this patient: ID# [id number] Addendum entered by Kathya Ghotra 10/27/21 09:30: Per nursing staff patient is 92% on room air. Patient does not require O2 at this time and will return to [facility] today. Addendum entered by Kathya Ghotra 10/27/21 07:46: Due to RA of 85% patient information has been faxed to [facility]. Patient previously stated that she did not want to return to [facility]: after our conversation yesterday regarding placement patient now prefers [facility]. Patient information has been faxed to Paulette everett/ [facility]. Original Note: This patient currently resides at [facility]. If patient needs placement at time of discharge she prefers to go to [place] over [facility]. I will continue to follow up with patient/facilities. Discharge date is unknown at this time.
--- NOTE | 2021-10-25 11:38 | HMH.PULMCON ---
*Admission Date: 10/24/21 *Reason for consult:: Acute hypoxic respiratory failure, COPD exacerbation *History of present illness: Ms. Brown is a 56-year-old female current smoker greater than [id number] smoking history, carries a diagnosis COPD on Symbicort inhaler along with albuterol on as-needed basis, not using oxygen at home presented to the hospital worsening respiratory distress distress along with subjective cough and productive phlegm for the last 2 to 3 days. Denies any known sick contacts. At admission patient needing oxygen supplementation to maintain her O2 saturations at the desired level and pulmonary was called for further management. [facility] History Medical History: Reports:: Atherosclerotic Heart Disease, Congestive Heart Failure, Coronary Artery Disease, Hyperlipidemia, Hypertension, Renal Insufficiency, Valvular Heart Disease Denies:: Cancer, Diabetes Mellitus Type 1, Diabetes Mellitus Type 2, Migraine, MRSA, Myocardial Infarction *Have you ever received a pneumonia vaccine?: Yes *Have you received a flu vaccine this season?: Yes Other Medical History: Reports: Arthritis. Denies: Hypothyroidism Other Surgeries: Yes: CABG, Cardiac Catheterization, Colonoscopy, , Open Heart Surgery, Other Valve Replacement Amputation: No - *Social History Smoking Status: Current every day smoker Tobacco Type: cigarettes # Packs/Day (cigarettes): 1 Alcohol Intake: never *Occupational Status:: unemployed Household Members: children *Travel in the last 8 weeks: None Family Hx:: Unable to obtain ROS - Cons Reports daytime sleepiness, Reports fever(s), Denies excessive sweating - Eyes Reports blurry vision - ENT Reports nasal congestion - Card Reports shortness of breath with activity - Resp Respiratory: Reports change in phlegm color, Reports dyspnea on exertion, Reports excessive phlegm production, Reports cough with sputum production - GI Gastrointestingal: Denies: abdominal pain - [place] Musculoskeletal: Reports back pain - Psych Denies thoughts of hurting/killing others, Denies thoughts of hurting/killing yourself Meds Home Medications Medication Instructions Recorded Confirmed Type Albuterol Sulfate [Albuterol 8.5 gm IH Q6HP PRN #2 hfa.aer.ad 01/10/20 10/24/21 Rx Sulfate Hfa] Melatonin 10 mg PO HS 01/04/21 10/24/21 History atorvastatin 40 mg tablet 40 mg PO HS 06/12/21 10/24/21 History carvedilol 12.5 mg tablet 12.5 mg PO BID 06/12/21 10/24/21 History famotidine 20 mg tablet 20 mg PO HS 06/12/21 10/24/21 History hydralazine 100 mg tablet 100 mg PO TID 06/12/21 10/24/21 History sodium bicarbonate 650 mg tablet 650 mg PO TID tab 06/12/21 10/24/21 History trazodone 50 mg tablet 50 mg PO HS 06/12/21 10/24/21 History Budesonide/Formoterol Fumarate 1 puff IH BID 07/07/21 10/25/21 History [Symbicort 80-4.5 Mcg Inhaler] Sevelamer Carbonate [Renvela] 800 mg PO TID 07/07/21 10/24/21 History gabapentin 100 mg capsule 100 mg PO TID #90 cap 08/25/21 10/24/21 Rx hydrocodone 5 mg-acetaminophen 325 1 tab PO BID #60 tab 09/27/21 10/24/21 Rx mg tablet Allergies Allergy/AdvReac Type Severity Reaction Status Date / Time No Known Allergies Allergy Verified 10/23/21 10:55 Exam - Constitutional Constitutional:: Present: no acute distress, comfortable - HENMT Exam HENMT: Present: normocephalic - Eye Exam Eyes:: Present: normal appearance both eyes and related structures - Neck Exam Neck:: Present: normal visual inspection - Respiratory Exam Respiratory:: Present: able to speak in complete sentences, no respiratory distress. Absent: rhonchi, wheezing - Cardiovascular Exam Cardiac:: Present: S1, S2 - GI Exam GI:: Present: soft - Skin Exam Skin: Present: warm, no rash - Neurological Exam Neurological: Present: alert, awake, normal cognition - Extremities Exam Extremities: Present: no cyanosis, no clubbing, no edema Internal Medicine - CN: Reslt - Labs CBC & Chem 7:
--- NOTE | 2021-10-25 11:45 | HMH.CNCARD ---
History of Present Illness Consult date: 10/25/21 Requesting physician: Lucio Irene Consult reason: shortness of breath Chief complaint: SOA History of present illness: This is a 56-year-old white female who presented to the emergency department with complaints of shortness of breath. The patient was seen in cardiology clinic on Saturday with no significant complaints and she states that she felt well. She had sudden onset of shortness of breath on Saturday. The patient states that she just got more and more short of breath throughout the day. It was associated with cough and productive phlegm. She denies any chest pain or pressure. The patient is a current tobacco user and does have a history of COPD. She was admitted for a COPD exacerbation but had an elevated BNP and cardiology was consulted due to an acute exacerbation of congestive heart failure. This morning she states that she is still short of breath but it is a little bit better than it was prior to admission. She denies any lower extremity edema. She denies any fever, chills, nausea, vomiting, diarrhea, PND or orthopnea. When I walk in the room the patient is lying flat without complaints of shortness of breath. The patient has a history of coronary artery disease and is status post VILLAGOMEZ to the LAD and aortic valve replacement. [facility] History I have reviewed the patient's past medical history: Yes Medical History: Reports:: Atherosclerotic Heart Disease, Congestive Heart Failure, Coronary Artery Disease, Hyperlipidemia, Hypertension, Renal Insufficiency, Valvular Heart Disease Denies:: Cancer, Diabetes Mellitus Type 1, Diabetes Mellitus Type 2, Migraine, MRSA, Myocardial Infarction *Have you ever received a pneumonia vaccine?: Yes *Have you received a flu vaccine this season?: Yes Other Medical History: Reports: Arthritis. Denies: Hypothyroidism Other Surgeries: Yes: CABG, Cardiac Catheterization, Colonoscopy, , Open Heart Surgery, Other Valve Replacement Amputation: No - *Social History Smoking Status: Current every day smoker Tobacco Type: cigarettes # Packs/Day (cigarettes): 1 Alcohol Intake: never *Occupational Status:: unemployed Household Members: children *Travel in the last 8 weeks: None Family Hx:: Unable to obtain Meds Home Medications Medication Instructions Recorded Confirmed Type Albuterol Sulfate [Albuterol 8.5 gm IH Q6HP PRN #2 [email or web address] 01/10/20 10/24/21 Rx Sulfate Hfa] Melatonin 10 mg PO HS 01/04/21 10/24/21 History atorvastatin 40 mg tablet 40 mg PO HS 06/12/21 10/24/21 History carvedilol 12.5 mg tablet 12.5 mg PO BID 06/12/21 10/24/21 History famotidine 20 mg tablet 20 mg PO HS 06/12/21 10/24/21 History hydralazine 100 mg tablet 100 mg PO TID 06/12/21 10/24/21 History sodium bicarbonate 650 mg tablet 650 mg PO TID tab 06/12/21 10/24/21 History trazodone 50 mg tablet 50 mg PO HS 06/12/21 10/24/21 History Budesonide/Formoterol Fumarate 1 puff IH BID 07/07/21 10/25/21 History [Symbicort 80-4.5 Mcg Inhaler] Sevelamer Carbonate [Renvela] 800 mg PO TID 07/07/21 10/24/21 History gabapentin 100 mg capsule 100 mg PO TID #90 cap 08/25/21 10/24/21 Rx hydrocodone 5 mg-acetaminophen 325 1 tab PO BID #60 tab 09/27/21 10/24/21 Rx mg tablet Allergies Allergy/AdvReac Type Severity Reaction Status Date / Time No Known Allergies Allergy Verified 10/23/21 10:55 Exam Vital signs and Labs for Last 24 Hours: Temp Pulse Resp BP Pulse Ox 98.7 F 81 20 191/101 H 88 L 10/25/21 08:00 10/25/21 11:04 10/25/21 08:00 10/25/21 08:00 10/25/21 11:04 Laboratory Results - last 24 hr 10/24/21 10:10: NT-Pro-B Natriuret Pep 73935 H 10/24/21 12:31: SARS-CoV-2 (PCR) Not detected, Influenza A Untype (PCR) Not detected, Influenza Type B (PCR) Not detected 10/24/21 13:01: Lactate 0.6 L I & O for Last 24 hours: Intake & Output 10/22/21 10/23/21 10/24/21 10/25/21 23:59 23:59 23:59 23:59 Intake Total 480 / 480 120 / 120 Jacobo
--- NOTE | 2021-10-25 12:23 | HMH.HP ---
*Admission Date: 10/24/21 *Chief complaint: soa *History of present illness: 56-year-old white female from a personal half-way, presented to the emergency department with complaints of shortness of breath. She had sudden onset of shortness of breath on Saturday. The patient states that she just got more and more short of breath throughout the day. The patient is a current tobacco user and does have a history of COPD. She denies any lower extremity edema. She denies any fever, chills, nausea, vomiting, diarrhea, PND or orthopnea. Admitted for a COPD exacerbation but had an elevated BNP and cardiology was consulted due to an acute exacerbation of congestive heart failure. [facility] History I have reviewed the patient's past medical history: Yes Medical History: Reports:: Atherosclerotic Heart Disease, Congestive Heart Failure, Coronary Artery Disease, Hyperlipidemia, Hypertension, Renal Insufficiency, Valvular Heart Disease Denies:: Cancer, Diabetes Mellitus Type 1, Diabetes Mellitus Type 2, Migraine, MRSA, Myocardial Infarction *Have you ever received a pneumonia vaccine?: Yes *Have you received a flu vaccine this season?: Yes Other Medical History: Reports: Arthritis. Denies: Hypothyroidism Other Surgeries: Yes: CABG, Cardiac Catheterization, Colonoscopy, , Open Heart Surgery, Other Valve Replacement Amputation: No - *Social History Smoking Status: Current every day smoker Tobacco Type: cigarettes # Packs/Day (cigarettes): 1 Alcohol Intake: never *Occupational Status:: unemployed Household Members: children *Travel in the last 8 weeks: None Family Hx:: Unable to obtain Review of Systems - Review of Systems Review of systems:: pertinent systems reviewed and negative unless documented below - Constitutional Denies body ache(s) - Eyes Denies dry eyes - ENT Denies bleeding gums - *Cardiovascular Reports shortness of breath with activity, Denies chest pain at rest, Denies chest pain with activity - *Respiratory Reports cough, Reports shortness of breath, Reports shortness of breath with activity - *Gastrointestinal Denies abdominal pain - *Genitourinary Denies abnormal periods - *Musculoskeletal Denies joint pain - Integumentary/Breasts Denies bleeding lesions - *Neurologic Denies abnormal walking - Psychiatric Denies abnormal sleep pattern - Endocrine Denies excessive sweating - Hematologic/Lymphatic Denies easy bruising - Allergic/Immunologic Denies GI upset with certain foods Meds Home Medications Medication Instructions Recorded Confirmed Type Albuterol Sulfate [Albuterol 8.5 gm IH Q6HP PRN #2 [email or web address] 01/10/20 10/24/21 Rx Sulfate Hfa] Melatonin 10 mg PO HS 01/04/21 10/24/21 History atorvastatin 40 mg tablet 40 mg PO HS 06/12/21 10/24/21 History carvedilol 12.5 mg tablet 12.5 mg PO BID 06/12/21 10/24/21 History famotidine 20 mg tablet 20 mg PO HS 06/12/21 10/24/21 History hydralazine 100 mg tablet 100 mg PO TID 06/12/21 10/24/21 History sodium bicarbonate 650 mg tablet 650 mg PO TID tab 06/12/21 10/24/21 History trazodone 50 mg tablet 50 mg PO HS 06/12/21 10/24/21 History Budesonide/Formoterol Fumarate 1 puff IH BID 07/07/21 10/25/21 History [Symbicort 80-4.5 Mcg Inhaler] Sevelamer Carbonate [Renvela] 800 mg PO TID 07/07/21 10/24/21 History gabapentin 100 mg capsule 100 mg PO TID #90 cap 08/25/21 10/24/21 Rx hydrocodone 5 mg-acetaminophen 325 1 tab PO BID #60 tab 09/27/21 10/24/21 Rx mg tablet Allergies Allergy/AdvReac Type Severity Reaction Status Date / Time No Known Allergies Allergy Verified 10/23/21 10:55 Exam Vital signs and Labs for Last 24 Hours: Temp Pulse Resp BP Pulse Ox 98.7 F 81 20 191/101 H 88 L 10/25/21 08:00 10/25/21 11:04 10/25/21 08:00 10/25/21 08:00 10/25/21 11:04 Laboratory Results - last 24 hr 10/24/21 10:10: NT-Pro-B Natriuret Pep 71870 H 10/24/21 12:31: SARS-CoV-2 (PCR) Not detected, Influenza A Untype (PCR
--- NOTE | 2021-10-25 15:22 | PC.NURSE ---
DR. SALAS'S OFFICE MADE AWARE OF PT BP. AWAITING CALL BACK AT THIS TIME.
[2021-10-26] VITALS (11 sets, daily range): BP systolic 145–218; BP diastolic 81–124; PULSE 60–79; RESP 16–18; TEMP 36.7–36.9; O2SAT 89–96; BMI 32.6
--- NOTE | 2021-10-26 04:57 | PC.NURSE ---
Patient has been hypertensive this shift. Patient denies headache or blurred vision. Heart rate, oxygen, and respirations have remained WNL. Patient has been afebrile.
[2021-10-26 06:27] LABS: Hematocrit 35.9 % (37.0-47.0); Hemoglobin 11.6 g/dL (12.2-16.2); Lymphocytes # 0.6 K/mm3 (0.7-4.5); Mean Corpuscular HGB Conc 32.2 g/dL (31.8-35.4); Mean Corpuscular Hemoglobin 27.1 pg (27.0-31.2); Mean Corpuscular Volume 84.2 fl (81-99); Mean Platelet Volume 8.5 fl (7.4-10.4); Monocytes # 0.4 K/mm3 (0.1-1.0); Monocytes % 4.5 % (1.7-9.3); Neutrophils % 88.4 % (37.0-80.0); Platelet Count 177 K/mm3 (142-424); Red Blood Count 4.27 M/mm3 (4.20-5.40); Red Cell Distribution Width 16.3 % (11.5-17.5); White Blood Count 9.1 K/mm3 (4.8-10.8)
[2021-10-26 06:30] LABS: Blood Urea Nitrogen 56 mg/dl (7-17); Calcium 9.3 mg/dl (8.4-10.2); Carbon Dioxide 30 mmol/L (22.0-30.0); Chloride 101 mmol/L (98-107); Creatinine Clearance Estimated 21 mL/min (50-200); Estimated Glomerular Filt Rate 14 ml/min (>60); GFR (African American) 16 ML/MIN (>60); Glucose 130 mg/dl (74-100); MANUAL DIFFERENTIAL MANUAL DIFFERENTIAL (MANUAL DIFF); Sodium 140 mmol/L (136-145)
[2021-10-26 08:00] LABS: Lymphocytes % 5 % (10-50); Monocytes % 5 % (2-9); Neutrophils % 90 % (42-76); Platelet Estimate Normal; RBC Morphology Normal; Total Cells Counted 100
--- NOTE | 2021-10-26 09:27 | HMH.PULMPN ---
Internal Medicine - PN: Subj *Date: 10/26/21 *Time: 10:14 Interval history: No acute respiratory vents overnight. Exam - Constitutional Constitutional:: Present: no acute distress, comfortable - HENMT Exam HENMT: Present: normocephalic, face & sinuses non-tender - Eye Exam Eyes:: Present: normal appearance both eyes and related structures - Neck Exam Neck:: Present: normal visual inspection - Respiratory Exam Respiratory:: Present: able to speak in complete sentences, no respiratory distress, wheezing - Cardiovascular Exam Cardiac:: Present: regular rhythm - GI Exam GI:: Present: soft - Skin Exam Skin: Present: warm, no rash - Neurological Exam Neurological: Present: alert, awake, normal cognition - Extremities Exam Extremities: Present: no cyanosis, no clubbing, no edema - Psychiatric Exam Psychiatric: Present: normal affect Assessment and Plan (1) Acute diastolic (congestive) heart failure Status: Acute Category: Medical Code(s): I50.31 - Acute diastolic (congestive) heart failure (2) Acute exacerbation of chronic obstructive airways disease Status: Acute Category: Medical Code(s): J44.1 - Chronic obstructive pulmonary disease with (acute) exacerbation (3) Altered mental status Status: Acute Category: Medical Code(s): R41.82 - Altered mental status, unspecified (4) Heart valve replaced Status: Acute Category: Surgical Code(s): Z95.2 - Presence of prosthetic heart valve (5) Malignant hypertension Status: Acute Category: Medical Code(s): I10 - Essential (primary) hypertension (6) Ascending aortic aneurysm Status: Chronic Category: Medical Code(s): I71.2 - Thoracic aortic aneurysm, without rupture (7) CAD (coronary artery disease) Status: Chronic Qualifiers: Qualified Code(s): I25.708 - Atherosclerosis of coronary artery bypass graft(s), unspecified, with other forms of angina pectoris Category: Medical Code(s): I25.10 - Atherosclerotic heart disease of [place] coronary artery without angina pectoris (8) Chronic kidney disease Status: Chronic Qualifiers: Qualified Code(s): N18.4 - Chronic kidney disease, stage 4 (severe) Category: Medical Code(s): N18.9 - Chronic kidney disease, unspecified (9) Grade II diastolic dysfunction Status: Chronic Category: Medical Code(s): I51.9 - Heart disease, unspecified (10) HLD (hyperlipidemia) Status: Chronic Qualifiers: Qualified Code(s): E78.2 - Mixed hyperlipidemia Category: Medical Code(s): E78.5 - Hyperlipidemia, unspecified (11) History of coronary artery bypass graft Status: Chronic Category: Surgical Code(s): Z95.1 - Presence of aortocoronary bypass graft - Assessment and plan all Dx Assessment and Plan for all problems:: #Acute hypoxic respiratory failure: #COPD exacerbation: Current smoker greater than [id number] smoking history. Carries a diagnosis COPD on Symbicort inhaler, rarely needing albuterol. Symptoms well controlled. Not using any oxygen at baseline. Presented with respiratory distress along with subjective fevers cough and productive phlegm. CT chest reviewed, no dense consolidation noted. Interstitial thickening and groundglass opacities concerning for volume overload. Very minimal left-sided pleural effusion not amenable for thoracentesis. Also noted to have evidence of prior granulomatous disease. Patient CT chest also noted to have dilated aortic arch and descending aorta, please follow with final report. Patient also noted to have history of uncontrolled hypertension, proteinuric nephropathy with CURTIS stage IV-V. Patient stated he follows with a manufacturing business analyst at [place] however she does not remember the doctor's name but had seen nephrology in the last 1 year. Interval update: No acute respiratory vents overnight. Patient admits continued improvement in her symptoms. Has not no comments were escalated to 3 L overnight, wean
--- NOTE | 2021-10-26 09:35 | HMH.ACPN2 ---
Internal Medicine - PN: Subj *Date: 10/26/21 *Time: 21:18 Interval history: 56-year-old female patient resting in bed quietly she reports her shortness of breath is a little better but she still becomes short of breath with any exertion. Current oxygenation 93% on 2 L per nasal cannula. Case management working on placement for placement as she will not be able to return to previous location due to oxygen requirements. Exam Vital signs and Labs for Last 24 Hours: Temp Pulse Resp BP Pulse Ox 98.2 F 68 17 192/108 H 96 10/26/21 07:48 10/26/21 07:48 10/26/21 07:48 10/26/21 07:48 10/26/21 08:00 Laboratory Results - last 24 hr 10/26/21 05:38: WBC 9.1 D, RBC 4.27, Hgb 11.6 L, Hct 35.9 L, MCV 84.2, MCH 27.1, MCHC 32.2, RDW 16.3, Plt Count 177, MPV 8.5, Neut % (Auto) 88.4 H, Lymph % (Auto) 7.0 L, [place] % (Auto) 4.5, Eos % (Auto) 0.0 L, Baso % (Auto) 0.0 L, Neut # (Auto) 8.0 H, Lymph # (Auto) 0.6 L, [place] # (Auto) 0.4, Eos # (Auto) 0.0, Baso # (Auto) 0.0, Total Counted 100, Neutrophils % (Manual) 90 H, Lymphocytes % (Manual) 5 L, Monocytes % (Manual) 5, Platelet Estimate Normal, RBC Morphology Normal 10/26/21 05:38: Sodium 140, Potassium 4.0, Chloride 101, Carbon Dioxide 30, Anion Gap 13.0, BUN 56 H D, Creatinine 3.50 H, Estimated Creat Clear 21, Estimated GFR 14 L*, Est GFR ( Amer) 16 L*, Glucose 130 H, Calcium 9.3 I & O for Last 24 hours: Intake & Output 10/23/21 10/24/21 10/25/21 10/26/21 23:59 23:59 23:59 23:59 Intake Total 480 / 480 600 / 600 Output Total Balance 480 / 480 600 / 599 -1 / -1 Weight 172 lb 173 lb 8.061 oz 166 lb 8 oz - Constitutional no acute distress - *Routine HEENT Exam Head: Present: normocephalic Eye: Present: EOMI ENT: Present: mucous membranes moist - *Routine Neck Exam Present: trachea midline. Absent: tracheal deviation - *Routine Respiratory Exam Present: CTA bilaterally. Absent: accessory muscle use - *Routine Cardiovascular Exam Present: RRR, murmur - *Routine Abdominal Exam Present: soft, normoactive bowel sounds. Absent: tenderness, distended - *Routine Extremities Exam Present: full ROM, pulses intact. Absent: cyanosis, clubbing, edema - *Routine Skin Exam Present: intact, dry. Absent: cyanosis, erythema - *Routine Neurological Exam Present: alert. Absent: motor deficit Assessment and Plan (1) Acute diastolic (congestive) heart failure Status: Acute Category: Medical Code(s): I50.31 - Acute diastolic (congestive) heart failure (2) Acute exacerbation of chronic obstructive airways disease Status: Acute Category: Medical Code(s): J44.1 - Chronic obstructive pulmonary disease with (acute) exacerbation (3) Altered mental status Status: Acute Category: Medical Code(s): R41.82 - Altered mental status, unspecified (4) Heart valve replaced Status: Acute Category: Surgical Code(s): Z95.2 - Presence of prosthetic heart valve (5) Malignant hypertension Status: Acute Category: Medical Code(s): I10 - Essential (primary) hypertension (6) Ascending aortic aneurysm Status: Chronic Category: Medical Code(s): I71.2 - Thoracic aortic aneurysm, without rupture (7) CAD (coronary artery disease) Status: Chronic Qualifiers: Coronary Disease-Associated Artery/Lesion type: bypass graft [place] vs. transplanted heart: [place] heart Associated angina: with other forms of angina Qualified Code(s): I25.708 - Atherosclerosis of coronary artery bypass graft(s), unspecified, with other forms of angina pectoris Category: Medical Code(s): I25.10 - Atherosclerotic heart disease of [place] coronary artery without angina pectoris (8) Chronic kidney disease Status: Chronic Qualifiers: Chronic kidney disease stage: stage 4 (severe) Qualified Code(s): N18.4 - Chronic kidney disease, stage 4 (severe) Category: Medical Code(s): N18.9 - Chronic kidney disease, unspecified (9) Grade II diast
--- NOTE | 2021-10-26 09:45 | PC.NURSE ---
PT ROOM AIR SAT IS 87%. O2 RE-APPLIED.
--- NOTE | 2021-10-26 10:04 | HMH.PNCARD ---
Subjective Date: 10/26/21 Time: 10:15 Principal diagnosis: CHF, CKD Interval history: This is a 56-year-old white female who presented to the emergency department complaints of shortness of breath. The patient was admitted for a COPD exacerbation. She did have an elevated BNP and cardiology was consulted. She is being treated for an acute exacerbation of diastolic congestive heart failure. She was given a dose of IV Lasix yesterday. She states that her shortness of breath has improved but she is still really short of breath with exertion. It improves with rest. She denies any lower extremity edema. Her creatinine did go up to 3.5 overnight but her GFR remains at 14. She denies any chest pain or pressure. She denies any fever, chills, nausea, vomiting, diarrhea, PND or orthopnea. Exam Vital signs and Labs for Last 24 Hours: Temp Pulse Resp BP Pulse Ox 98.2 F 68 17 192/108 H 96 10/26/21 07:48 10/26/21 07:48 10/26/21 07:48 10/26/21 07:48 10/26/21 08:00 Laboratory Results - last 24 hr 10/26/21 05:38: WBC 9.1 D, RBC 4.27, Hgb 11.6 L, Hct 35.9 L, MCV 84.2, MCH 27.1, MCHC 32.2, RDW 16.3, Plt Count 177, MPV 8.5, Neut % (Auto) 88.4 H, Lymph % (Auto) 7.0 L, [place] % (Auto) 4.5, Eos % (Auto) 0.0 L, Baso % (Auto) 0.0 L, Neut # (Auto) 8.0 H, Lymph # (Auto) 0.6 L, [place] # (Auto) 0.4, Eos # (Auto) 0.0, Baso # (Auto) 0.0, Total Counted 100, Neutrophils % (Manual) 90 H, Lymphocytes % (Manual) 5 L, Monocytes % (Manual) 5, Platelet Estimate Normal, RBC Morphology Normal 10/26/21 05:38: Sodium 140, Potassium 4.0, Chloride 101, Carbon Dioxide 30, Anion Gap 13.0, BUN 56 H D, Creatinine 3.50 H, Estimated Creat Clear 21, Estimated GFR 14 L*, Est GFR ( Amer) 16 L*, Glucose 130 H, Calcium 9.3 I & O for Last 24 hours: Intake & Output 10/23/21 10/24/21 10/25/21 10/26/21 23:59 23:59 23:59 23:59 Intake Total 480 / 480 600 / 600 Output Total Balance 480 / 480 600 / 599 -1 / -1 Weight 172 lb 173 lb 8.061 oz 166 lb 8 oz Narrative: Echo shows: 1. Limited echocardiogram was performed, there was no Doppler or color-flow mapping done. 2. Normal left ventricular size and function with no regional wall motion abnormality. Estimated ejection fraction 55%. 3. No significant pericardial effusion noted. CT chest shows: The patient is status post median sternotomy. There is no axillary adenopathy. There is no hilar or mediastinal mass or adenopathy. 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 This is stable as compared to the prior exam. The ascending aorta is also aneurysmal at 4.7 cm in diameter and is stable. There has been partial improvement of anterior mediastinal fluid which was likely postoperative. There are calcified granulomas in the right lung. There is mild scarring. A small left pleural effusion is present. IMPRESSION: Stable aneurysmal dilatation of the ascending aorta and distal aortic arch. Partial improvement of the anterior mediastinal fluid which was likely postoperative. Stable, small left pleural effusion. - Constitutional no acute distress, obese - *Routine HEENT Exam Head: Present: normocephalic, atraumatic Eye: Present: EOMI, PERRL ENT: Present: mucous membranes moist - *Routine Neck Exam Present: supple, full ROM, normal carotid upstroke. Absent: JVD, carotid bruit, lymphadenopathy - *Routine Respiratory Exam Present: rales - *Routine Cardiovascular Exam Present: RRR, Normal S1, Normal S2, murmur - *Routine Abdominal Exam Present: soft, normoactive bowel sounds. Absent: tenderness, distended - *Routine Extremities Exam Present: full ROM, pulses intact, normal capillary refill. Absent: cyanosis, clubbing, edema - *Routine Skin Exam Present: intact, warm. Absent: erythema, rash - *Routine Neurological Exam Present: alert, oriented X3, CN II-XII intact. Absent: sensory deficit, motor deficit Progress Note: A&P
[2021-10-26 14:13] LABS: Albumin 3.5 g/dL (2.9-4.4); Alpha-1-Globulin 0.3 g/dL (0.0-0.4); Alpha-2-Globulin 0.8 g/dL (0.4-1.0); Anti-Centromere B Antibodies <0.2 AI (0.0-0.9); Anti-DNA (DS) Ab Qn 3 IU/mL (0-9); Anti-Jo-1 <0.2 AI (0.0-0.9); Anti-Smith Antibody 0.2 AI (0.0-0.9); Antichromatin Antibodies <0.2 AI (0.0-0.9); Antiscleroderma-70 Antibodies <0.2 AI (0.0-0.9); Gamma Globulin 1.8 g/dL (0.4-1.8); Protein, Total 7.5 g/dL (6.0-8.5); RNP Antibodies 0.3 AI (0.0-0.9); Sjogren's Anti-SS-A <0.2 AI (0.0-0.9); Sjogren's Anti-SS-B <0.2 AI (0.0-0.9)
--- NOTE | 2021-10-26 15:55 | DIET.NUTRFU ---
Meal intake is poor at 25% of meals and renal labs have gotten worse at 56H and Cr 3.5H. Provider has determined dialysis is needed at this point. Recommend starting supplements when dialysis started. Based on elevated Cr, high protein is not recommended until dialysis starts.
[2021-10-27] VITALS (7 sets, daily range): BP systolic 95–133; BP diastolic 58–79; PULSE 57–69; RESP 16–17; TEMP 36.8–36.9; O2SAT 90–93; BMI 32.2
--- NOTE | 2021-10-27 05:57 | PC.NURSE ---
Patient's RA sat was 85%, placed back on 2L NC at the time.
[2021-10-27 06:01] LABS: Basophils % 0.4 % (0.1-2.0); Eosinophils % 0.1 % (0.1-12.0); Hematocrit 40.2 % (37.0-47.0); Lymphocytes # 1.6 K/mm3 (0.7-4.5); Lymphocytes % 16.5 % (10-50); Mean Corpuscular HGB Conc 32.3 g/dL (31.8-35.4); Mean Corpuscular Hemoglobin 26.8 pg (27.0-31.2); Mean Platelet Volume 8.7 fl (7.4-10.4); Monocytes # 0.7 K/mm3 (0.1-1.0); Monocytes % 7.3 % (1.7-9.3); Neutrophils # 7.2 K/mm3 (1.8-7.8); Neutrophils % 75.6 % (37.0-80.0); Platelet Count 224 K/mm3 (142-424); Red Blood Count 4.85 M/mm3 (4.20-5.40); Red Cell Distribution Width 16.1 % (11.5-17.5); White Blood Count 9.5 K/mm3 (4.8-10.8)
[2021-10-27 06:04] LABS: Chloride 95 mmol/L (98-107); Sodium 137 mmol/L (136-145)
[2021-10-27 06:07] LABS: Blood Urea Nitrogen 66 mg/dl (7-17); Carbon Dioxide 29 mmol/L (22.0-30.0); Creatinine Clearance Estimated 21 mL/min (50-200); Estimated Glomerular Filt Rate 13 ml/min (>60); GFR (African American) 16 ML/MIN (>60)
[2021-10-27 06:09] LABS: Calcium 8.9 mg/dl (8.4-10.2); Glucose 92 mg/dl (74-100)
--- NOTE | 2021-10-27 09:57 | HMH.PULMPN ---
Internal Medicine - PN: Subj *Date: 10/27/21 *Time: 09:57 Interval history: No acute respiratory vents overnight. Patient was weaned to room air. Exam - Constitutional Constitutional:: Present: no acute distress, comfortable - HENMT Exam HENMT: Present: normocephalic, atraumatic - Eye Exam Eyes:: Present: normal appearance both eyes and related structures - Neck Exam Neck:: Present: normal visual inspection - Respiratory Exam Respiratory:: Present: able to speak in complete sentences, no respiratory distress, crackles. Absent: wheezing - Cardiovascular Exam Cardiac:: Present: S1, S2 - GI Exam GI:: Present: soft - Skin Exam Skin: Present: warm - Neurological Exam Neurological: Present: alert, awake, normal cognition - Extremities Exam Extremities: Present: no cyanosis, no clubbing, no edema Assessment and Plan (1) Acute diastolic (congestive) heart failure Status: Acute Category: Medical Code(s): I50.31 - Acute diastolic (congestive) heart failure (2) Acute exacerbation of chronic obstructive airways disease Status: Acute Category: Medical Code(s): J44.1 - Chronic obstructive pulmonary disease with (acute) exacerbation (3) Altered mental status Status: Acute Category: Medical Code(s): R41.82 - Altered mental status, unspecified (4) Heart valve replaced Status: Acute Category: Surgical Code(s): Z95.2 - Presence of prosthetic heart valve (5) Malignant hypertension Status: Acute Category: Medical Code(s): I10 - Essential (primary) hypertension (6) Ascending aortic aneurysm Status: Chronic Category: Medical Code(s): I71.2 - Thoracic aortic aneurysm, without rupture (7) CAD (coronary artery disease) Status: Chronic Qualifiers: Coronary Disease-Associated Artery/Lesion type: bypass graft [place] vs. transplanted heart: [place] heart Associated angina: with other forms of angina Qualified Code(s): I25.708 - Atherosclerosis of coronary artery bypass graft(s), unspecified, with other forms of angina pectoris Category: Medical Code(s): I25.10 - Atherosclerotic heart disease of [place] coronary artery without angina pectoris (8) Chronic kidney disease Status: Chronic Qualifiers: Chronic kidney disease stage: stage 4 (severe) Qualified Code(s): N18.4 - Chronic kidney disease, stage 4 (severe) Category: Medical Code(s): N18.9 - Chronic kidney disease, unspecified (9) Grade II diastolic dysfunction Status: Chronic Category: Medical Code(s): I51.9 - Heart disease, unspecified (10) HLD (hyperlipidemia) Status: Chronic Qualifiers: Hyperlipidemia type: mixed hyperlipidemia Qualified Code(s): E78.2 - Mixed hyperlipidemia Category: Medical Code(s): E78.5 - Hyperlipidemia, unspecified (11) History of coronary artery bypass graft Status: Chronic Category: Surgical Code(s): Z95.1 - Presence of aortocoronary bypass graft - Assessment and plan all Dx Assessment and Plan for all problems:: #Acute hypoxic respiratory failure: #COPD exacerbation: Current smoker greater than [id number] smoking history. Carries a diagnosis COPD on Symbicort inhaler, rarely needing albuterol. Symptoms well controlled. Not using any oxygen at baseline. Presented with respiratory distress along with subjective fevers cough and productive phlegm. CT chest reviewed, no dense consolidation noted. Interstitial thickening and groundglass opacities concerning for volume overload. Very minimal left-sided pleural effusion not amenable for thoracentesis. Also noted to have evidence of prior granulomatous disease. Patient CT chest also noted to have dilated aortic arch and descending aorta, please follow with final report. Patient also noted to have history of uncontrolled hypertension, proteinuric nephropathy with CURTIS stage IV-V. Patient stated he follows with a cloth dyer at [place] however she does not remember the doctor's name but
--- NOTE | 2021-10-27 10:14 | HMH.DCSUM ---
General - General Admission date:: 10/24/21 Discharge date: 10/27/21 HPI HPI: 56-year-old white female from a [place], presented to the emergency department with complaints of shortness of breath. She had sudden onset of shortness of breath on Saturday. The patient states that she just got more and more short of breath throughout the day. The patient is a current tobacco user and does have a history of COPD. She denies any lower extremity edema. She denies any fever, chills, nausea, vomiting, diarrhea, PND or orthopnea. Admitted for a COPD exacerbation but had an elevated BNP and cardiology was consulted due to an acute exacerbation of congestive heart failure. Hospital Course Hospital Course: 56-year-old white female from a personal prison, presented to the emergency department with complaints of shortness of breath. She had sudden onset of shortness of breath on Saturday. The patient states that she just got more and more short of breath throughout the day. The patient is a current tobacco user and does have a history of COPD. She denies any lower extremity edema. She denies any fever, chills, nausea, vomiting, diarrhea, PND or orthopnea. Admitted for a COPD exacerbation but had an elevated BNP and cardiology was consulted due to an acute exacerbation of congestive heart failure. CXR: IMPRESSION: Improved pulmonary vascular congestion with a stable left pleural effusion. Reviewed, Interpreted and Dictated by Som Byrne III, MD 10/24/[address]: FINDINGS: The patient is status post median sternotomy. There is no axillary adenopathy. There is no hilar or mediastinal mass or adenopathy. 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 This is stable as compared to the prior exam. The ascending aorta is also aneurysmal at 4.7 cm in diameter and is stable. There has been partial improvement of anterior mediastinal fluid which was likely postoperative. There are calcified granulomas in the right lung. There is mild scarring. A small left pleural effusion is present. IMPRESSION: Stable aneurysmal dilatation of the ascending aorta and distal aortic arch. Partial improvement of the anterior mediastinal fluid which was likely postoperative. Stable, small left pleural effusion. Reviewed, Interpreted and Dictated by Som Byrne III, MD Cardiology has seen and recommends: Plan: 1. The patient was mated to the hospital with shortness of breath and found to have a COPD exacerbation. Pulmonology has been consulted. Will defer. 2. The patient is also being treated for an acute exacerbation of diastolic congestive heart failure. Her BNP was over 11,000. She was given a dose of IV Lasix yesterday and she did diurese. However, her intake and output was not recorded accurately. She is down 7 pounds overnight. She states her shortness of breath has improved but she is still short of breath with exertion. Her renal function did bump up slightly to 3.5 but her GFR remained at 14. 3. Due to her chronic kidney disease stage V with a GFR of 14, likely from malignant hypertension and possibly nephrotic syndrome. Dr. Archibald feels that the patient needs to have dialysis. She reports that she sees a marble installation helper but she is unable to tell me who her marble installation helper is. She did tell pulmonology that her marble installation helper was from [facility]. I asked her today if they had ever mentioned dialysis and she reports that they have. She initially stated that she has seen them within the last year but she does not know when. But when I asked her about them ever mentioning dialysis she reports that she had a vein mapping a few weeks ago. I have discussed this with her primary care team and Jus Munroe, JANNA, is going to find out who her marble installation helper is and make contact with them since we feel that the patient currently needs dialysis. If her
--- NOTE | 2021-10-31 15:33 | CARE MANAGER ---
Attempted to call Augustine Patino. Left message on 10/30 with no return call. Retried today with no answer.
[2021-11-16 20:10] LABS: APTT 25.2 sec (.); Anti-Cardiolipin Antibody IgG <10 GPL (.); Anti-Cardiolipin Antibody IgM 21 MPL (.); Beta-2 Glycoprotein I Ab, IgA <10 SAU (.); Beta-2 Glycoprotein I Ab, IgG <10 SGU (.); Beta-2 Glycoprotein I Ab, IgM <10 SMU (.); Hexagonal Phase Phospholipid 0 sec (.); INR 1.1 ratio (.); Prothrombin Time 11.4 sec (.); Thrombin Time 17.5 sec (.)
== END 2021-10-27 14:45 | disposition home or self-care (01) | DRG 291 ==
LOC: ER 13:00 → 2ND 10-25 00:40
PROVIDERS: Nurse Practitioner Family; Admitting Provider Emergency Medicine; Emergency Provider Emergency Medicine; PCP Emergency Medicine; Visit Provider Emergency Medicine
DX: I13.0 Hypertensive heart and chronic kidney disease with heart failure and stage 1 through stage 4 chronic kidney disease, or unspecified chronic kidney disease (principal); J96.01 Acute respiratory failure with hypoxia; I50.31 Acute diastolic (congestive) heart failure; J44.1 Chronic obstructive pulmonary disease with (acute) exacerbation; N18.4 Chronic kidney disease, stage 4 (severe); I25.10 Atherosclerotic heart disease of native coronary artery without angina pectoris; Z20.822 Contact with and (suspected) exposure to COVID-19; F17.210 Nicotine dependence, cigarettes, uncomplicated; E78.5 Hyperlipidemia, unspecified; I71.2 Thoracic aortic aneurysm, without rupture; Z95.1 Presence of aortocoronary bypass graft
CPT/HCPCS: 36415; 71045; 71250; 80048; 80053; 83605; 83880; 84155; 84165; 84484; 85007; 85025; 85597; 85598; 85610; 85613; 85670; 85730; 86146; 86147; 86225; 86235; 87040; 93005; 93308; 94640; 96365; 96375; 97161; 97165; 99285; C9803; J0456; J0696; U0003; U0005

== ENCOUNTER → 2021-11-06 16:15 | Outpatient (POV) | payer MEDICAID, SELFPAY | PROVIDERS: Visit Provider Internal Medicine Nephrology | DX: Z00.00 Encounter for general adult medical examination without abnormal findings (principal) ==

== ENCOUNTER 2021-11-18 22:04 | Inpatient (IN) | payer MEDICAID, SELFPAY ==
[2021-11-18] VITALS (7 sets, daily range): BP systolic 103–113; BP diastolic 55–60; PULSE 58–69; RESP 16–28; TEMP 36.8; O2SAT 84–98; BMI 28.8
--- NOTE | 2021-11-18 21:55 | XR_ITS ---
PROCEDURE INFORMATION: Exam: XR Chest Exam date and time: 11/18/2021 10:32 PM Age: 56 years old Clinical indication: Shortness of breath; Prior surgery; Surgery date: 6+ months; Surgery type: Open heart surgery last year; Additional info: Shortness of air TECHNIQUE: Imaging protocol: XR of the chest. Views: 1 view. COMPARISON: CT CHEST WO CON 10/25/2021 9:49 AM FINDINGS: Lungs: Coarse interstitial lung markings likely chronic. Findings are suspicious for superimposed interstitial edema versus interstitial pneumonia. Granulomatous change. Pleural spaces: Small left pleural effusion. Heart/Mediastinum: Cardiomegaly. Bones/joints: Midline sternotomy. IMPRESSION: 1. Cardiomegaly. 2. Interstitial edema versus interstitial pneumonia and small bilateral effusions.
[2021-11-18 22:01] LABS: ABG Base Excess 6.5 mmol/L (-2.4-2.3); ABG HCO3 31.4 mmhg (22.0-26.0); ABG Oxygen Saturation 94 % (90-100); ABG PH 7.39 mmol/L (7.35-7.45); ABG TCO2 33.1 mmhg (23-27)
[2021-11-18 22:02] LABS: Allen's Test Acceptable; Oxygen 4LPM %; Source Right Radial
[2021-11-18 22:03] LABS: Basophils # 0.1 K/mm3 (0-0.2); Basophils % 2.4 % (0.1-2.0); Eosinophils # 0.1 K/mm3 (0.0-0.4); Eosinophils % 2.5 % (0.1-12.0); Hematocrit 28.7 % (37.0-47.0); Hemoglobin 9.3 g/dL (12.2-16.2); Lymphocytes # 0.6 K/mm3 (0.7-4.5); Lymphocytes % 10.8 % (10-50); Mean Corpuscular HGB Conc 32.6 g/dL (31.8-35.4); Mean Corpuscular Hemoglobin 27.7 pg (27.0-31.2); Mean Corpuscular Volume 85.1 fl (81-99); Mean Platelet Volume 9.5 fl (7.4-10.4); Monocytes # 0.3 K/mm3 (0.1-1.0); Monocytes % 6.1 % (1.7-9.3); Neutrophils # 4.2 K/mm3 (1.8-7.8); Neutrophils % 78.3 % (37.0-80.0); Platelet Count 255 K/mm3 (142-424); Red Blood Count 3.37 M/mm3 (4.20-5.40); Red Cell Distribution Width 16.8 % (11.5-17.5); White Blood Count 5.4 K/mm3 (4.8-10.8)
[2021-11-18 22:04] LABS: ABG PCO2 53.1 mmhg (35.0-45.0)
[2021-11-18 22:05] LABS: Coronavirus 19, PCR Not Detected (NotDetected); Influenza A, PCR Not Detected (NotDetected); Influenza B, PCR Not Detected (NotDetected)
[2021-11-18 22:17] LABS: Alanine Aminotransferase 14 U/L (12-78); Albumin/Globulin Ratio 1.1 (1.1-1.8); Alkaline Phosphatase 98 U/L (38-126); Anion Gap 9.5 mEq/L (5-15); Aspartate Amino Transferase 22 U/L (14-36); Bilirubin,Total 0.6 mg/dl (0.2-1.3); Blood Urea Nitrogen 44 mg/dl (7-17); Calcium 8.7 mg/dl (8.4-10.2); Carbon Dioxide 37 mmol/L (22.0-30.0); Chloride 94 mmol/L (98-107); Creatinine Clearance Estimated 16 mL/min (50-200); Estimated Glomerular Filt Rate 9 ml/min (>60); GFR (African American) 11 ML/MIN (>60); Globulin 3.5 g/dL (1.3-3.2); Glucose 116 mg/dl (74-100); Potassium 3.5 mmoL/L (3.5-5.1); Sodium 137 mmol/L (136-145); Total Protein,Serum 7.5 g/dl (6.3-8.2)
[2021-11-18 22:22] LABS: C-Reactive Protein 15.7 mg/L (0-4)
[2021-11-18 22:28] LABS: Erythrocyte Sedimentation Rate > 140 mm/hr (0-30); NT Pro Brain Natriuretic Pep. 10700 pg/mL (0-125)
[2021-11-18 22:31] LABS: Troponin I 0.02 ng/ml (0.00-0.034)
--- NOTE | 2021-11-18 22:33 | PC.NURSE ---
RAD at bedside
[2021-11-18 22:36] LABS: Procalcitonin 0.055 ng/mL (0.0-2.0)
--- NOTE | 2021-11-18 22:43 | PC.NURSE ---
called [facility] for med rec
[2021-11-18 22:55] LABS: Lactic Acid 0.8 mmol/L (0.7-2.1)
--- NOTE | 2021-11-18 23:17 | PC.NURSE ---
ricardo simon rec from [facility]
--- NOTE | 2021-11-18 23:44 | HMH.EDSOB ---
ED Disposition Clinical Impression: Acute on chronic diastolic (congestive) heart failure, CKD (chronic kidney disease) stage 4, GFR 15-29 ml/min Disposition: Admitted as Observation Condition on Discharge: Fair - Critical Care Critical Care Time: No Attestation: On 11/18/21, the high probability of a clinically significant, sudden or life threatening deterioration of the following system(s) required my full and direct attention, intervention and personal management. The time I documented below is in addition to time spent performing reported procedures but includes the following listed in this critical care notation. Medical Decision Making - Medical Records Medical records reviewed: Yes: I reviewed the patient's medical records. - Norris Inquiry Pt receiving controlled substance: No Vital Signs: 11/18/21 21:37 11/18/21 22:00 11/18/21 22:21 Temperature 98.3 F Temperature Source Oral Pulse Rate 62 63 Pulse Rate [Left Radial] 65 Respiratory Rate 28 H 21 Blood Pressure 107/55 L Blood Pressure [Right Arm] 111/58 L Blood Pressure Mean [Right Arm] 75 Blood Pressure Source [Right Arm] Automatic Cuff Blood Pressure Position [Right Arm] Sitting 02 Sat by Pulse Oximetry 84 L 98 96 Oxygen Delivery Method Room Air Nasal Cannula Nasal Cannula Oxygen Flow Rate (LPM) 2 2 11/18/21 22:30 11/18/21 23:00 11/18/21 23:30 Temperature Temperature Source Pulse Rate 63 59 L 58 L Pulse Rate [Left Radial] Respiratory Rate 21 16 18 Blood Pressure 113/55 L 113/60 106/58 L Blood Pressure [Right Arm] Blood Pressure Mean [Right Arm] Blood Pressure Source [Right Arm] Blood Pressure Position [Right Arm] 02 Sat by Pulse Oximetry 97 93 L 92 L Oxygen Delivery Method Nasal Cannula Nasal Cannula Nasal Cannula Oxygen Flow Rate (LPM) 4 4 4 11/18/21 23:45 11/19/21 00:00 11/19/21 00:30 Temperature Temperature Source Pulse Rate 59 L 61 60 Pulse Rate [Left Radial] Respiratory Rate 18 16 18 Blood Pressure 103/56 L 117/64 114/64 Blood Pressure [Right Arm] Blood Pressure Mean [Right Arm] Blood Pressure Source [Right Arm] Blood Pressure Position [Right Arm] 02 Sat by Pulse Oximetry 93 L 91 L 95 Oxygen Delivery Method Nasal Cannula Nasal Cannula Oxygen Flow Rate (LPM) 4 4 11/19/21 00:35 11/19/21 00:50 11/19/21 01:00 Temperature Temperature Source Pulse Rate 60 61 67 Pulse Rate [Left Radial] Respiratory Rate 16 15 17 Blood Pressure 111/78 105/65 L 105/63 L Blood Pressure [Right Arm] Blood Pressure Mean [Right Arm] Blood Pressure Source [Right Arm] Blood Pressure Position [Right Arm] 02 Sat by Pulse Oximetry 94 L 94 L 95 Oxygen Delivery Method Room Air Room Air Oxygen Flow Rate (LPM) - Lab Data Lab results reviewed: Yes: I reviewed the patient's lab results. Lab Results 11/18/21 21:41: WBC 5.4, RBC 3.37 L, Hgb 9.3 L, Hct 28.7 L, MCV 85.1, MCH 27.7, MCHC 32.6, RDW 16.8, Plt Count 255, MPV 9.5, Neut % (Auto) 78.3, Lymph % (Auto) 10.8, [place] % (Auto) 6.1, Eos % (Auto) 2.5, Baso % (Auto) 2.4 H, Neut # (Auto) 4.2, Lymph # (Auto) 0.6 L, [place] # (Auto) 0.3, Eos # (Auto) 0.1, Baso # (Auto) 0.1, ESR > 140 H 11/18/21 21:41: Sodium 137, Potassium 3.5, Chloride 94 L, Carbon Dioxide 37 H, Anion Gap 9.5, BUN 44 H, Creatinine 4.80 H, Estimated Creat Clear 16, Estimated GFR 9 L*, Est GFR ( Amer) 11 L*, Glucose 116 H, Calcium 8.7, Total Bilirubin 0.6, AST 22, ALT 14, Alkaline Phosphatase 98, Troponin I 0.02, C-Reactive Protein 15.7 H, Total Protein 7.5, Albumin 4.0, Globulin 3.5 H, Albumin/Globulin Ratio 1.1, Procalcitonin 0.055 11/18/21 21:41: NT-Pro-B Natriuret Pep [id number] H 11/18/21 21:51: Specimen Source Right radial, O2 % 4lpm, ABG pH 7.39, ABG pCO2 53.1 H, ABG pO2 74.0 L, ABG HCO3 31.4 H, ABG Total CO2 33.1 H, ABG O2 Saturation 94, ABG Base Excess 6.5 H, Keenan Test Acceptable 11/18/21 21:52: SARS-CoV-2 (PCR) Not detected, Influenza A Untype (PCR) Not detecte
--- NOTE | 2021-11-18 23:51 | PC.NURSE ---
paged dr edwards
--- NOTE | 2021-11-18 23:54 | PC.NURSE ---
ER speaking with dr edwards
[2021-11-19] VITALS (36 sets, daily range): BP systolic 98–124; BP diastolic 54–78; PULSE 60–71; RESP 13–22; TEMP 36.7–37.1; O2SAT 89–96; BMI 28.6
[2021-11-19 00:20] LABS: Appearance,Urine CLEAR (Clear); Bilirubin,Urine Negative (Negative); Blood, Urine Negative (Negative); Color,Urine YELLOW (Yellow); Glucose,Urine (UA) Negative (Negative); Ketones,Urine Negative (Negative); Leukocyte Esterase,Urine Negative (Negative); Microscopic, Urine URINE MICROSCOPIC (MICROSCOPIC); Nitrate,Urine Negative (Negative); PH,Urine 6.5 (5.0-8.5); Protein,Urine TRACE (Negative); Urobilinogen,Urine 0.2 EU/dl (0.2)
--- NOTE | 2021-11-19 00:22 | PC.NURSE ---
Pt given pillow and made comfortable. No new needs.
[2021-11-19 00:23] LABS: Amorphous Sediment,Urine Trace /lpf; Hyaline Casts,Urine Occasional #/lpf (0)
[2021-11-19 00:44] LABS: Troponin I 0.02 ng/ml (0.00-0.034)
[2021-11-19 04:14] LABS: Basophils # 0.1 K/mm3 (0-0.2); Basophils % 1.4 % (0.1-2.0); Eosinophils # 0.2 K/mm3 (0.0-0.4); Eosinophils % 3.6 % (0.1-12.0); Lymphocytes # 0.8 K/mm3 (0.7-4.5); Lymphocytes % 19.1 % (10-50); Mean Corpuscular HGB Conc 31.9 g/dL (31.8-35.4); Mean Corpuscular Hemoglobin 27.1 pg (27.0-31.2); Mean Corpuscular Volume 85.1 fl (81-99); Mean Platelet Volume 10.8 fl (7.4-10.4); Monocytes # 0.4 K/mm3 (0.1-1.0); Monocytes % 8.8 % (1.7-9.3); Neutrophils # 2.9 K/mm3 (1.8-7.8); Platelet Count 182 K/mm3 (142-424); Red Blood Count 3.06 M/mm3 (4.20-5.40); Red Cell Distribution Width 16.9 % (11.5-17.5); White Blood Count 4.4 K/mm3 (4.8-10.8)
[2021-11-19 04:17] LABS: Hematocrit 26.1 % (37.0-47.0); Hemoglobin 8.3 g/dL (12.2-16.2)
[2021-11-19 04:25] LABS: Anion Gap 8.1 mEq/L (5-15); Blood Urea Nitrogen 42 mg/dl (7-17); Calcium 8.5 mg/dl (8.4-10.2); Carbon Dioxide 36 mmol/L (22.0-30.0); Chloride 96 mmol/L (98-107); Creatinine Clearance Estimated 15 mL/min (50-200); Estimated Glomerular Filt Rate 9 ml/min (>60); Magnesium 2.6 mg/dl (1.6-2.3); Phosphorous 5.7 mg/dl (2.5-4.5); Potassium 3.1 mmoL/L (3.5-5.1); Sodium 137 mmol/L (136-145)
--- NOTE | 2021-11-19 04:28 | PC.NURSE ---
Cosme from lab called with a critical creatinine of 5.20 Name, , and lab value verified x2. electrical and electronic assembler notified at 1607
[2021-11-19 04:29] LABS: GFR (African American) 10 ML/MIN (>60); Glucose 86 mg/dl (74-100)
[2021-11-19 04:37] LABS: Troponin I 0.03 ng/ml (0.00-0.034)
--- NOTE | 2021-11-19 10:12 | HMH.HP ---
*Admission Date: 11/19/21 *Chief complaint: sob *History of present illness: pt sent from [facility] History Medical History: Reports:: Atherosclerotic Heart Disease, Congestive Heart Failure, Coronary Artery Disease, Hyperlipidemia, Hypertension, Renal Insufficiency, Valvular Heart Disease Denies:: Cancer, Diabetes Mellitus Type 1, Diabetes Mellitus Type 2, Migraine, MRSA, Myocardial Infarction *Have you ever received a pneumonia vaccine?: No *Have you received a flu vaccine this season?: Yes Other Medical History: Reports: Anemia, Arthritis. Denies: Hypothyroidism Other Surgeries: Yes: CABG, Cardiac Catheterization, Cardiac Surgery, Colonoscopy, , Open Heart Surgery, Other Valve Replacement Amputation: No Fractures: No - *Social History Last grade of school completed: 11th or 12th Smoking Status: Current every day smoker Tobacco Type: cigarettes # Packs/Day (cigarettes): 1 Alcohol Intake: never *Occupational Status:: disabled Household Members: children *Travel in the last 8 weeks: None Family Hx:: Anemia, Hypertension, Stroke Review of Systems - *Neurologic Denies localized weakness Meds Home Medications Medication Instructions Recorded Confirmed Type Albuterol Sulfate [Albuterol 8.5 gm IH Q6HP PRN #2 hfa.[email or web address] 01/10/20 11/18/21 Rx Sulfate Hfa] Melatonin 10 mg PO HS 01/04/21 11/18/21 History atorvastatin 40 mg tablet 40 mg PO HS 06/12/21 11/18/21 History famotidine 20 mg tablet 20 mg PO HS 06/12/21 11/18/21 History hydralazine 100 mg tablet 100 mg PO TID 06/12/21 11/18/21 History sodium bicarbonate 650 mg tablet 650 mg PO TID tab 06/12/21 11/18/21 History trazodone 50 mg tablet 50 mg PO HS 06/12/21 11/18/21 History Sevelamer Carbonate [Renvela] 800 mg PO TID 07/07/21 11/18/21 History gabapentin 100 mg capsule 100 mg PO TID #90 cap 08/25/21 11/18/21 Rx hydrocodone 5 mg-acetaminophen 325 1 tab PO BID #60 tab 11/15/21 11/18/21 Rx mg tablet Aspirin [Aspirin 81mg EC Tab] 81 mg PO DAILY 11/18/21 11/18/21 History Ferrous Sulfate [Ferrous Sulfate 325 mg PO DAILY 11/18/21 11/18/21 History 325mg Tab] Furosemide [Furosemide 20mg Tab*] 20 mg PO DAILY 11/18/21 11/18/21 History Isosorbide Mononitrate [Isosorbide 60 mg PO DAILY 11/18/21 11/18/21 History Mononitrate ER] Multivitamin 1 each PO DAILY 11/18/21 11/18/21 History Sertraline HCl 100 mg PO DAILY 11/18/21 11/18/21 History Sertraline HCl [Zoloft] 50 mg PO DAILY 11/18/21 11/18/21 History Tiotropium [place] [Spiriva 1 puff IH DAILY 11/18/21 11/18/21 History 18mcg/puff inhaler] carvediloL [Coreg 25mg Tablet] 12.5 mg PO BID 11/18/21 11/18/21 History polyethylene glycoL 3350 [Miralax 17 gm PO DAILY 11/18/21 11/18/21 History 17gm Packet] Allergies Allergy/AdvReac Type Severity Reaction Status Date / Time No Known Allergies Allergy Verified 10/23/21 10:55 Exam Vital signs and Labs for Last 24 Hours: Temp Pulse Resp BP Pulse Ox 98.0 F 63 20 119/61 90 L 11/19/21 08:00 11/19/21 08:00 11/19/21 08:00 11/19/21 08:00 11/19/21 08:00 Laboratory Results - last 24 hr 11/18/21 21:41: WBC 5.4, RBC 3.37 L, Hgb 9.3 L, Hct 28.7 L, MCV 85.1, MCH 27.7, MCHC 32.6, RDW 16.8, Plt Count 255, MPV 9.5, Neut % (Auto) 78.3, Lymph % (Auto) 10.8, [place] % (Auto) 6.1, Eos % (Auto) 2.5, Baso % (Auto) 2.4 H, Neut # (Auto) 4.2, Lymph # (Auto) 0.6 L, [place] # (Auto) 0.3, Eos # (Auto) 0.1, Baso # (Auto) 0.1, ESR > 140 H 11/18/21 21:41: Sodium 137, Potassium 3.5, Chloride 94 L, Carbon Dioxide 37 H, Anion Gap 9.5, BUN 44 H, Creatinine 4.80 H, Estimated Creat Clear 16, Estimated GFR 9 L*, Est GFR ( Amer) 11 L*, Glucose 116 H, Calcium 8.7, Total Bilirubin 0.6, AST 22, ALT 14, Alkaline Phosphatase 98, Troponin I 0.02, C-Reactive Protein 15.7 H, Total Protein 7.5, Albumin 4.0, Globulin 3.5 H, Albumin/Globulin Ratio 1.1, Procalcitonin 0.055 11/18/21 21:41: NT-Pro-B Natriuret Pep [id number] H 11/18/21 21:51: Specimen Source Right radial, O2 % 4lpm, ABG pH 7
--- NOTE | 2021-11-19 10:14 | HMH.HP ---
*Admission Date: 11/18/21 *Chief complaint: sob *History of present illness: this patient presented to [facility] from residential last pm with hx of copd/chf and crf - no def chest pain but has increased sob and lower ext swelling -pt with low o2 sat at residential - pt has been compliant with meds and has seen nephrology -pt does use tob [facility] History I have reviewed the patient's past medical history: Yes Medical History: Reports:: Atherosclerotic Heart Disease, Congestive Heart Failure, Coronary Artery Disease, Hyperlipidemia, Hypertension, Renal Insufficiency, Valvular Heart Disease Denies:: Cancer, Diabetes Mellitus Type 1, Diabetes Mellitus Type 2, Migraine, MRSA, Myocardial Infarction *Have you ever received a pneumonia vaccine?: No *Have you received a flu vaccine this season?: Yes Other Medical History: Reports: Anemia, Arthritis. Denies: Hypothyroidism Other Surgeries: Yes: CABG, Cardiac Catheterization, Cardiac Surgery, Colonoscopy, , Open Heart Surgery, Other Valve Replacement Amputation: No Fractures: No - *Social History Last grade of school completed: 11th or 12th Smoking Status: Current every day smoker Tobacco Type: cigarettes # Packs/Day (cigarettes): 1 Alcohol Intake: never *Occupational Status:: disabled Household Members: children *Travel in the last 8 weeks: None Family Hx:: Anemia, Hypertension, Stroke Review of Systems - Review of Systems Review of systems:: pertinent systems reviewed and negative unless documented below - Constitutional Denies fever(s) - Eyes Denies change in vision - ENT Denies sore throat - *Cardiovascular Reports shortness of breath, Reports leg swelling, Denies chest pain - *Respiratory Denies cough - *Gastrointestinal Denies abdominal pain - *Genitourinary Denies blood in urine - *Musculoskeletal Denies joint pain - Integumentary/Breasts Denies rash - *Neurologic Denies localized weakness, Denies seizure-like activity - Psychiatric Denies depression Meds Home Medications Medication Instructions Recorded Confirmed Type Melatonin 10 mg PO HS 01/04/21 11/18/21 History atorvastatin 40 mg tablet 40 mg PO HS 06/12/21 11/18/21 History famotidine 20 mg tablet 20 mg PO HS 06/12/21 11/18/21 History hydralazine 100 mg tablet 100 mg PO TID 06/12/21 11/18/21 History sodium bicarbonate 650 mg tablet 650 mg PO TID tab 06/12/21 11/18/21 History trazodone 50 mg tablet 50 mg PO HS 06/12/21 11/18/21 History Sevelamer Carbonate [Renvela] 800 mg PO TID 07/07/21 11/18/21 History gabapentin 100 mg capsule 100 mg PO TID #90 cap 08/25/21 11/18/21 Rx hydrocodone 5 mg-acetaminophen 325 1 tab PO BID #60 tab 11/15/21 11/18/21 Rx mg tablet Aspirin [Aspirin 81mg EC Tab] 81 mg PO DAILY 11/18/21 11/18/21 History Ferrous Sulfate [Ferrous Sulfate 325 mg PO DAILY 11/18/21 11/18/21 History 325mg Tab] Furosemide [Furosemide 20mg Tab*] 20 mg PO DAILY 11/18/21 11/18/21 History Isosorbide Mononitrate [Isosorbide 60 mg PO DAILY 11/18/21 11/18/21 History Mononitrate ER] Multivitamin 1 each PO DAILY 11/18/21 11/18/21 History Sertraline HCl 100 mg PO DAILY 11/18/21 11/18/21 History carvediloL [Coreg 25mg Tablet] 12.5 mg PO BID 11/18/21 11/18/21 History polyethylene glycoL 3350 [Miralax 17 gm PO DAILY 11/18/21 11/18/21 History 17gm Packet] Albuterol Sulfate [Albuterol 1 puff INHALATION Q6HP PRN 11/19/21 11/19/21 History Sulfate Hfa] Budesonide/Formoterol Fumarate 21 puffs IH BID 11/19/21 11/19/21 History [Symbicort 80-4.5 Mcg Inhaler] Cyanocobalamin (Vitamin B-12) 50 mcg PO DAILY 11/19/21 11/19/21 History [Vitamin B-12] Allergies Allergy/AdvReac Type Severity Reaction Status Date / Time No Known Allergies Allergy Verified 10/23/21 10:55 Exam Vital signs and Labs for Last 24 Hours: Temp Pulse Resp BP Pulse Ox 98.0 F 63 20 119/61 90 L 11/19/21 08:00 11/19/21 08:00 11/19/21 08:00 11/19/21 08:00 11/19/21 08:00
--- NOTE | 2021-11-19 14:15 | HMH.PHAVTE ---
[facility] Pharmacy VTE Monitoring - Patient Demographics Admission date: 11/19/21 Report Date: 11/19/21 Time: 14:15 Allergies/Adverse Reactions: Patient Allergies No Known Allergies Allergy (Verified 10/23/21 10:55) Height: 1.63 m Weight: 76.204 kg Patient Problems: Current Active Problems Acute CHF (Acute) CKD (chronic kidney disease) stage 4, GFR 15-29 ml/min (Acute) Acute on chronic diastolic (congestive) heart failure (Acute) Tobacco use (Acute) CAD (coronary artery disease) (Chronic) Acute exacerbation of chronic obstructive airways disease (Acute) - VTE Risk Labs: VTE Related Lab Results Hgb 8.3 g/dL (12.2-16.2) L D 11/19/21 04:05 Hct 26.1 % (37.0-47.0) L 11/19/21 04:05 Plt Count 182 K/mm3 (142-424) D 11/19/21 04:05 BUN 42 mg/dl (7-17) H 11/19/21 04:05 Creatinine 5.20 mg/dl (0.52-1.04) H 11/19/21 04:05 Estimated Creat Clear 15 mL/min (50-200) 11/19/21 04:05 Was VTE Risk Assessment Performed: Yes VTE Score: 6 VTE Risk Level: Moderate Risk - Prophylaxis Types of VTE Prophylaxis: TEDS Knee High Location of Applied Device: Bilateral Lower Extremeties (DREW HOSE ORDERED)
[2021-11-20] VITALS (14 sets, daily range): BP systolic 114–147; BP diastolic 52–72; PULSE 60–68; RESP 15–18; TEMP 36.6–36.9; O2SAT 89–97; BMI 28.6
--- NOTE | 2021-11-20 04:09 | PC.NURSE ---
Patient has remained on 6LNC this RN's shift. Patient has requested to have her oxygen turned down however, patient is unable to tolerate anything lower then 6LNC. Patient's O2 has been anywhere from 89-93% on 6LNC. Patient has remained NSR on telemetry. She has rested well this shift.
[2021-11-20 06:34] LABS: Chloride 93 mmol/L (98-107); Potassium 3.2 mmoL/L (3.5-5.1); Sodium 134 mmol/L (136-145)
[2021-11-20 06:37] LABS: Anion Gap 7.2 mEq/L (5-15); Blood Urea Nitrogen 48 mg/dl (7-17); Calcium 9.2 mg/dl (8.4-10.2); Carbon Dioxide 37 mmol/L (22.0-30.0); Creatinine Clearance Estimated 15 mL/min (50-200); Estimated Glomerular Filt Rate 9 ml/min (>60); GFR (African American) 11 ML/MIN (>60); Glucose 96 mg/dl (74-100)
--- NOTE | 2021-11-20 09:01 | SW/DCPLANNER ---
Addendum entered by Kathya Ghotra 11/23/21 10:02: This patient will discharge to [facility] today [facility] level of care. Zaira everett/ [facility] has stated that patient does not require an additional COVID swab prior to admission. Addendum entered by Kathya Ghotra 11/20/21 11:13: Paulette everett/ [facility] can accept this patient. Paulette has stated that patient will not require an additional COVID swab. Original Note: This patient currently resides at [facility]. Due to patient requiring continuous 6L of O2 patient will require placement at I[facility] level of care at time of discharge. Patient has been to [facility] in the past. I will follow up with Paulette from [facility] today regarding bed availability and referral. Per Yoanna patient is medically stable for discharge at this time.
--- NOTE | 2021-11-20 09:20 | CA_ITS ---
APPROVED REPORT EXAM: Comprehensive 2D, Doppler, and color-flow Echocardiogram Veneer Marker: NATALIE Roach, RVS Ht: 5 ft 4 in Wt: 168lbs BSA: 1.82 BP: 119/61 mmHg Indications: ASC AORTIC ANEURYSM, SOA, BACK PAIN, CHF,CAD, AVR, CABG 2D Dimensions Aortic Root 2.73 cm LA Volume 66.50 mL Left Atrium 4.74 cm LA Volume Index 36.50 mL/m2 (M/F) 16-34 LVOT 1.98 cm (M/F) 1.5-2.5 Ascending Aorta 3.91 cm M-Mode Dimensions RVDd 3.96 cm (0.9-2.6) LA Diam 5.53 cm (1.9-4.0) LVDd 4.52 cm (3.5-5.7) Ao Diam 3.03 cm (2.0-3.7) LVDs 2.84 cm (3.5-5.7) IVSd 1.57 cm (0.6-1.1) PWd 1.25 cm (0.6-1.1) EF (Teich) 71.80% EPSs 1.28 cm FS 41.10% EDV (Teich) 108.60 mL TAPSE 1.57 (<1.7) ESV (Teich) 30.60 mL LV Diastology E Decel Time 250.00 (160-240 msec) E/A Ratio 1.40 MED E' 6.90 (< 7 cm/sec) MED A' 5.20 cm/s E'/MED E' Ratio 18.17 (>14) LAT E' 6.80 (<10 cm/sec) LAT A' 9.40 cm/s E/LAT E' Ratio 18.44 (>14) Aortic Valve LVOT Max 159.00 (70-110 cm/s) LVOT VTI 37.30 cm AoV Peak Filipe. 365.00 (50-130 cm/s) AO Peak GR. 53.40 mmHg AO Mean GR. 27.70 (<5 mmHg) AO VTI 73.98 (18-25 cm) SUZANNE (VTI) 1.55 (2.5-4.5 cm2) Mitral Valve MV A Velocity 89.00 (40-130 cm/s) E/A Ratio 1.40 MV Decel. Time 250.00 (160-240 ms) Pulmonary Valve PV Peak Velocity 150.00 (50-150 cm/s) Tricuspid Valve TR P. Velocity 272.00 cm/s RAP Estimate 10.00 mmHg RVSP 39.70 mmHg Left Ventricle Technically difficult and poor study. Left atrium is mildly enlarged, left ventricle is normal size, mild concentric left ventricular hypertrophy, estimated ejection fraction 55% with no regional wall motion abnormality, Doppler evidence of impaired LV relaxation seen. Right Ventricle Right atrium and right ventricle are mildly enlarged with normal contractility. Aortic Valve There is bioprosthetic valve noted in the aortic position, the maximum aortic outflow velocity recorded study 3.8 m/s, mean gradient across valve is 31 mmHg, valve area is calculated 1.4 cm???, there is no significant aortic insufficiency. Mitral Valve Mitral valve leaflets are minimally thickened, there is mild mitral regurgitation. Tricuspid Valve Tricuspid valve grossly normal, there is mild tricuspid regurgitation, tricuspid regurgitation jet velocity is inadequate for calculation of the right ventricular systolic pressure. Pulmonic Valve Pulmonic valve is poorly visualized. Great Vessels Aortic root is not visualized, ascending aorta appears to be enlarged, a CT scan of the chest with contrast is recommended to exclude the presence of thoracic aneurysm. Inferior vena cava is poorly visualized. Pericardium No significant pericardial effusion noted. Conclusion 1. Mild biatrial alignment, normal left ventricular size, mild concentric left ventricular hypertrophy, estimated ejection fraction 55% with no regional wall motion abnormality, Doppler evidence of impaired LV relaxation seen. 2. Bioprosthetic valve in the aortic position, mean gradient is 31 mmHg, valve area is 1.4 cm???, there is no significant aortic insufficiency. 3. Enlarged ascending aorta as described above, a CT scan of the chest with contrast is recommended to assess the size of the ascending aorta and thoracic aneurysm. 4. Mild mitral and tricuspid regurgitation. 5. No significant pericardial effusion. 6. Inferior vena cava is poorly visualized. Electronically signed by : Ryan Bee
--- NOTE | 2021-11-20 09:55 | HMH.OTEV ---
OT Inpatient Evaluation Rehab OT IP Evaluation Start: 11/20/21 08:38 Freq: ONCE Status: Complete Protocol: Document 11/20/21 09:49 [facility] (Rec: 11/20/21 09:55 [facility] [id number]) Rehab OT IP Assessment Subjective History Pt oriented x 4 on arrival. Pt agreeable to engage in therapy evaluation. Pt was admitted via ED on 11/18/21 due to SOB. Pt reports prior to being admitted to the hospital she lived at [facility]. Pt claims she was independent with all ADLs. She was dependent upon employees to complete all IADLs. Pt did not use AE during ambulation. The following information was copied from history and physical: this patient [facility] with hx of copd/chf and crf - no def chest pain but has increased sob and lower ext swelling -pt with low o2 sat at [facility] - pt has been compliant with meds and has seen nephrology -pt does use tob Subjective I can do whatever I need to. Pt resting in bed on arrival. Pt completed bed mobility with sba and went from supine to sitting at eob. Pt completed lower body dressing by donning her socks with sba. Pt demonstrated good dynamic sitting balance with sba. Pt stood from eob with sba. Pt engaged in functional mobility task of ~7 feet with sba. Pt sat down at eob with sba. Pt completed bed mobility and went from sitting to supine with sba. Objective Patient Orientation Person,Place,Birthday Upper Extremity Gross ROM WFL Bed Mobility bed mobility-scooting,bed mobility - supine/sit,bed mobility - rolling Assist Level Supervision/Stand by
--- NOTE | 2021-11-20 11:33 | HMH.CNCARD ---
History of Present Illness Consult date: 11/20/21 Requesting physician: Lucio Irene Consult reason: congestive heart failure, shortness of breath Chief complaint: SOA History of present illness: This is a 56-year-old white female who presented to the emergency department from [facility] for an acute exacerbation of her congestive heart failure. The patient was having increased shortness of breath and bilateral lower extremity edema and was brought here to the emergency department. Pulse oximetry was also low at the senior care. She does have chronic kidney disease and is currently seeing nephrology on an outpatient basis and being worked up to initiate dialysis. Most of the patient's information is coming from her medical records. Today she tells me that she really does not remember what happened and why she was brought here to the emergency department. She does remember that she has been short of breath for the last few days and had some lower extremity edema but she was unsure if that was why she was here. She states that her shortness of breath is much better today. She denies any lower extremity edema today. She denies any chest pain or pressure. She denies any fever, chills, nausea, vomiting, diarrhea. [facility] History I have reviewed the patient's past medical history: Yes Medical History: Reports:: Atherosclerotic Heart Disease, Congestive Heart Failure, Coronary Artery Disease, Hyperlipidemia, Hypertension, Renal Insufficiency, Valvular Heart Disease Denies:: Cancer, Diabetes Mellitus Type 1, Diabetes Mellitus Type 2, Migraine, MRSA, Myocardial Infarction *Have you ever received a pneumonia vaccine?: No *Have you received a flu vaccine this season?: Yes Other Medical History: Reports: Anemia, Arthritis. Denies: Hypothyroidism Other Surgeries: Yes: CABG, Cardiac Catheterization, Cardiac Surgery, Colonoscopy, , Open Heart Surgery, Other Valve Replacement Amputation: No Fractures: No - *Social History Last grade of school completed: 11th or 12th Smoking Status: Current every day smoker Tobacco Type: cigarettes # Packs/Day (cigarettes): 1 Alcohol Intake: never *Occupational Status:: disabled Household Members: children *Travel in the last 8 weeks: None Family Hx:: Anemia, Hypertension, Stroke Meds Home Medications Medication Instructions Recorded Confirmed Type Melatonin 10 mg PO HS 01/04/21 11/18/21 History atorvastatin 40 mg tablet 40 mg PO HS 06/12/21 11/18/21 History famotidine 20 mg tablet 20 mg PO HS 06/12/21 11/18/21 History hydralazine 100 mg tablet 100 mg PO TID 06/12/21 11/18/21 History sodium bicarbonate 650 mg tablet 650 mg PO TID tab 06/12/21 11/18/21 History trazodone 50 mg tablet 50 mg PO HS 06/12/21 11/18/21 History Sevelamer Carbonate [Renvela] 800 mg PO TID 07/07/21 11/18/21 History gabapentin 100 mg capsule 100 mg PO TID #90 cap 08/25/21 11/18/21 Rx hydrocodone 5 mg-acetaminophen 325 1 tab PO BID #60 tab 11/15/21 11/18/21 Rx mg tablet Aspirin [Aspirin 81mg EC Tab] 81 mg PO DAILY 11/18/21 11/18/21 History Ferrous Sulfate [Ferrous Sulfate 325 mg PO DAILY 11/18/21 11/18/21 History 325mg Tab] Furosemide [Furosemide 20mg Tab*] 20 mg PO DAILY 11/18/21 11/18/21 History Isosorbide Mononitrate [Isosorbide 60 mg PO DAILY 11/18/21 11/18/21 History Mononitrate ER] Multivitamin 1 each PO DAILY 11/18/21 11/18/21 History Sertraline HCl 100 mg PO DAILY 11/18/21 11/18/21 History carvediloL [Coreg 25mg Tablet] 12.5 mg PO BID 11/18/21 11/18/21 History polyethylene glycoL 3350 [Miralax 17 gm PO DAILY 11/18/21 11/18/21 History 17gm Packet] Albuterol Sulfate [Albuterol 1 puff INHALATION Q6HP PRN 11/19/21 11/19/21 History Sulfate Hfa] Budesonide/Formoterol Fumarate 21 puffs IH BID 11/19/21 11/19/21 History [Symbicort 80-4.5 Mcg Inhaler] Cyanocobalamin (Vitamin B-12) 50 mcg PO DAILY 11/19/21 11/19/21 History [Vitamin B-12] Allergies Allergy/AdvReac Type Severity React
--- NOTE | 2021-11-20 11:37 | HMH.PTEV ---
Physical Therapy Evaluation Rehab PT IP Evaluation Start: 11/20/21 08:37 Freq: ONCE Status: Active Protocol: Document 11/20/21 11:35 [facility] (Rec: 11/20/21 11:37 [facility] [id number]) Subjective/History History History 56 yowf adm to [facility] with CHF exac with increased SOA. Pt reports she lives in personal usp and is generally independent with all mobility without AD. Subjective Subjective Pt with no c/o this am. Rehab PT IP Eval Objective Appearance Patient Behavior Appropriate Patient Orientation Person,Place,Time Difficulty following instructions none Speech Pattern Clear Ambulation Patient Able to Ambulate Yes Ambulation Observation IP General Gait Pattern Observation Wide Based Gait Ambulation Distance (feet) 3 Ambulation Assistive Device None Ambulation Ability Minimal x 1 (25% assist) Balance Ability to Arise Able, uses arms to help Sitting Balance Steady, safe Standing Balance Steady, wide stance Dynamic Sitting Balance Ability Good Dynamic Standing Balance Ability Fair Transfers Bed Transfer Ability Contact Guard/Hand Hold Chair Transfer Ability Contact Guard/Hand Hold Sit to Stand Bed Transfer Ability Contact Guard/Hand Hold Sit to Stand Chair Transfer Ability Contact Guard/Hand Hold Rehab PT IP prob,goals,plan Problems Date of Evaluation: 11/20/21 PT IP Problems Bed Mobility,Transfers,Gait, Self care Rehab Potential Rehab Potential Good Plan PT Intervention Plan Bed Mobility,Transfers,Gait, Self care,Therapeutic Exercise PT Plan Frequency BID Duration LOS Discharge Goals Bed Transfer Ability Supervision/Stand by Sit to Stand Chair Transfer Ability Supervision/Stand by Ambulation Assistive Device Rolling Walker Ambulation Distance (feet) 25 Discharge Plan PT Discharge Plan Pt is most appropriate for rehab placement at this time. G -code Required No Eval Complexity Eval Charge Codes 81714 - Moderate Complexity PHYSICIAN CERTIFICATION: I certify the specified therapy services for Divya Brown are required, authorized, and reviewed every 30 days.
--- NOTE | 2021-11-20 11:48 | PC.NURSE ---
0730- spoke to jhoana in lab. verified pt's name, and room number. creatinine 4.90 0800- notified MD Irene during AM rounds
--- NOTE | 2021-11-20 13:43 | HMH.PHAINT ---
Home medication list verified again this am [facility]
--- NOTE | 2021-11-20 15:12 | PC.NURSE ---
Pt leaving with senior label specialist staff at this time.
--- NOTE | 2021-11-20 15:27 | PC.NURSE ---
Pt has rested well this shift. Pt requires standby assist by nursing staff throughout the shift, up to chair and back to bed. Pt is on 6L NC, pt desats on exertion, but quickly recovers. PT has had no bowel movement this shift, bowel sounds are active. director of cath lab staff planning on procedure first thing tomorrow morning. No other acute changes.
--- NOTE | 2021-11-20 15:50 | HMH.ACPN2 ---
Internal Medicine - PN: Subj *Date: 11/20/21 *Time: 09:00 Interval history: pt sitting up in bed states she feels better, nc at 6 liters o2 Exam Vital signs and Labs for Last 24 Hours: Temp Pulse Resp BP Pulse Ox 97.9 F 64 16 128/63 93 L 11/20/21 11:36 11/20/21 13:48 11/20/21 11:36 11/20/21 11:36 11/20/21 11:36 Laboratory Results - last 24 hr 11/20/21 05:40: Sodium 134 L, Potassium 3.2 L, Chloride 93 L, Carbon Dioxide 37 H, Anion Gap 7.2, BUN 48 H, Creatinine 4.90 H, Estimated Creat Clear 15, Estimated GFR 9 L*, Est GFR ( Amer) 11 L*, Glucose 96, Calcium 9.2 I & O for Last 24 hours: Intake & Output 11/18/21 11/19/21 11/20/21 11/21/21 11:59 11:59 11:59 11:59 Intake Total 785 / 785 360 / 360 Output Total 1750 / 1750 3650 / 3650 Balance -965 / -965 -3290 / -3290 Weight 168 lb 0.017 oz 167 lb 15.876 oz - Constitutional no acute distress - *Routine HEENT Exam Head: Present: normocephalic Eye: Present: PERRL ENT: Present: mucous membranes moist - *Routine Neck Exam Present: supple. Absent: lymphadenopathy - *Routine Respiratory Exam Present: CTA bilaterally - *Routine Cardiovascular Exam Present: RRR - *Routine Abdominal Exam Present: soft, normoactive bowel sounds. Absent: tenderness - *Routine Extremities Exam Absent: cyanosis, clubbing, edema - *Routine Skin Exam Present: warm. Absent: rash - *Routine Neurological Exam Present: alert, oriented X3 Assessment and Plan (1) Acute on chronic diastolic (congestive) heart failure Status: Acute Category: Medical Code(s): I50.33 - Acute on chronic diastolic (congestive) heart failure (2) Tobacco use Status: Acute Category: Social Hx Code(s): Z72.0 - Tobacco use (3) CKD (chronic kidney disease) stage 4, GFR 15-29 ml/min Status: Acute Category: Medical Code(s): N18.4 - Chronic kidney disease, stage 4 (severe) (4) Acute exacerbation of chronic obstructive airways disease Status: Acute Category: Medical Code(s): J44.1 - Chronic obstructive pulmonary disease with (acute) exacerbation (5) CAD (coronary artery disease) Status: Chronic Qualifiers: Coronary Disease-Associated Artery/Lesion type: bypass graft [place] vs. transplanted heart: [place] heart Associated angina: with other forms of angina Qualified Code(s): I25.708 - Atherosclerosis of coronary artery bypass graft(s), unspecified, with other forms of angina pectoris Category: Medical Code(s): I25.10 - Atherosclerotic heart disease of [place] coronary artery without angina pectoris (6) CKD (chronic kidney disease) stage 5, GFR less than 15 ml/min Status: Acute Category: Medical Code(s): N18.5 - Chronic kidney disease, stage 5 (7) History of mitral valve replacement Status: Acute Category: Surgical Code(s): Z95.2 - Presence of prosthetic heart valve (8) Thoracic aortic aneurysm Status: Acute Category: Medical Code(s): I71.2 - Thoracic aortic aneurysm, without rupture (9) Hypertension Status: Chronic Qualifiers: Hypertension type: primary hypertension Qualified Code(s): I10 - Essential (primary) hypertension Category: Medical Code(s): I10 - Essential (primary) hypertension (10) HLD (hyperlipidemia) Status: Chronic Qualifiers: Hyperlipidemia type: mixed hyperlipidemia Qualified Code(s): E78.2 - Mixed hyperlipidemia Category: Medical Code(s): E78.5 - Hyperlipidemia, unspecified (11) History of coronary artery bypass graft Status: Chronic Category: Surgical Code(s): Z95.1 - Presence of aortocoronary bypass graft - Assessment and plan all Dx Assessment and Plan for all problems:: rounded with dr oconnor all orders per dr nicholson pt on transfer list at [facility] and they have no beds spoke with dr abbott will try to arrange out pt dialysis shunt placement in am
[2021-11-21] VITALS (22 sets, daily range): BP systolic 116–139; BP diastolic 52–73; PULSE 59–71; RESP 14–18; TEMP 36.6–36.9; O2SAT 86–96; BMI 28.6
--- NOTE | 2021-11-21 04:53 | PC.NURSE ---
Addendum entered by Amy Mccabe RN 11/21/21 06:54: Patient had a nose bleed episode at approximately 0600. Patient has been placed on a venti mask at 9L and 35% FIO2. Patient has been maintaining O2 in the low to mid 90s. Patient complains of her nose being sore from the nasal cannula at 6L. Original Note: Patient has rested well this RN's shift. She has voiced no complaints thus far. Patient has had adequate urine output thus far. Patient was weaned down to 5LNC at approximately 0200 and maintained her O2 between 90-93%. Patient was turned back up to 6LNC at 0345 due to oxygen saturation dropping below 90% and maintaining 87-89%. Will continue to try to wean oxygen requirement. Wheezing is present in bilateral upper lobe lung sounds with diminished in bilateral bases. Patient has been NPO since midnight for dialysis sheath placement today.
[2021-11-21 06:05] LABS: Basophils # 0.1 K/mm3 (0-0.2); Basophils % 1.3 % (0.1-2.0); Eosinophils # 0.2 K/mm3 (0.0-0.4); Eosinophils % 2.9 % (0.1-12.0); Hematocrit 27.7 % (37.0-47.0); Hemoglobin 9.2 g/dL (12.2-16.2); Lymphocytes # 0.8 K/mm3 (0.7-4.5); Lymphocytes % 15.4 % (10-50); Mean Corpuscular HGB Conc 33.2 g/dL (31.8-35.4); Mean Corpuscular Hemoglobin 27.8 pg (27.0-31.2); Mean Corpuscular Volume 83.5 fl (81-99); Mean Platelet Volume 8.5 fl (7.4-10.4); Monocytes # 0.5 K/mm3 (0.1-1.0); Monocytes % 9.9 % (1.7-9.3); Neutrophils # 3.7 K/mm3 (1.8-7.8); Neutrophils % 70.5 % (37.0-80.0); Platelet Count 241 K/mm3 (142-424); Red Blood Count 3.32 M/mm3 (4.20-5.40); White Blood Count 5.2 K/mm3 (4.8-10.8)
[2021-11-21 06:23] LABS: Chloride 96 mmol/L (98-107)
[2021-11-21 06:24] LABS: Potassium 3.1 mmoL/L (3.5-5.1); Sodium 137 mmol/L (136-145)
[2021-11-21 06:26] LABS: Blood Urea Nitrogen 47 mg/dl (7-17); Creatinine Clearance Estimated 15 mL/min (50-200); Estimated Glomerular Filt Rate 9 ml/min (>60); GFR (African American) 10 ML/MIN (>60)
[2021-11-21 06:27] LABS: Anion Gap 7.1 mEq/L (5-15); Carbon Dioxide 37 mmol/L (22.0-30.0); Glucose 102 mg/dl (74-100)
--- NOTE | 2021-11-21 08:31 | XR_ITS ---
FINAL REPORT CLINICAL HISTORY: SOA COMPARISON: November 18, 2021 FINDINGS: Mild cardiomegaly is noted. There has been prior median sternotomy. There are calcified granulomas in the right upper lobe. There are chronic changes in the lung bases. There is no pleural effusion. There is no pneumothorax. The bony thorax is intact. IMPRESSION: No acute cardiopulmonary process. Reviewed, Interpreted and Dictated by Jad Perez MD Transcribed by Stephen Bhatt Authenticated by Jad Perez MD on 11/21/2021 08:56:21 AM [facility]
--- NOTE | 2021-11-21 09:09 | HMH.ACPN2 ---
Internal Medicine - PN: Subj *Date: 11/21/21 *Time: 09:09 Interval history: 56-year-old female patient sitting up in bed resting quietly with eyes closed, awakens to verbal stimuli. During the night she had increased oxygen requirements she is now on Ventimask oxygenation is 91%. She denies any chest pain. Exam Vital signs and Labs for Last 24 Hours: Temp Pulse Resp BP Pulse Ox 98.5 F 71 17 120/52 L 89 L 11/21/21 08:00 11/21/21 08:00 11/21/21 08:00 11/21/21 08:00 11/21/21 08:00 Laboratory Results - last 24 hr 11/21/21 05:26: Sodium 137, Potassium 3.1 L, Chloride 96 L, Carbon Dioxide 37 H, Anion Gap 7.1, BUN 47 H, Creatinine 5.20 H, Estimated Creat Clear 15, Estimated GFR 9 L*, Est GFR ( Amer) 10 L*, Glucose 102 H, Calcium 9.0 11/21/21 05:26: WBC 5.2, RBC 3.32 L, Hgb 9.2 L, Hct 27.7 L, MCV 83.5, MCH 27.8, MCHC 33.2, RDW 17.0, Plt Count 241 D, MPV 8.5, Neut % (Auto) 70.5, Lymph % (Auto) 15.4, [place] % (Auto) 9.9 H, Eos % (Auto) 2.9, Baso % (Auto) 1.3, Neut # (Auto) 3.7, Lymph # (Auto) 0.8, [place] # (Auto) 0.5, Eos # (Auto) 0.2, Baso # (Auto) 0.1 I & O for Last 24 hours: Intake & Output 11/18/21 11/19/21 11/20/21 11/21/21 23:59 23:59 23:59 23:59 Intake Total 1025 / 1025 360 / 360 442 / 442 Output Total 3100 / 4600 3500 / 4925 1425 / 1425 Balance -2075 / -3575 -3140 / -4565 -983 / -983 Weight 168 lb 168 lb 0.017 oz 167 lb 15.876 oz 167 lb 15.876 oz Microbiology Reports for the Last 24 Hours: Microbiology 11/18/21 22:29 Blood Blood Culture - Preliminary NO GROWTH AFTER 48 HOURS 11/18/21 22:29 Blood Blood Culture - Preliminary NO GROWTH AFTER 48 HOURS - Constitutional no acute distress - *Routine Neck Exam Present: trachea midline. Absent: tracheal deviation - *Routine Respiratory Exam Present: CTA bilaterally. Absent: accessory muscle use - *Routine Cardiovascular Exam Present: RRR, murmur - *Routine Abdominal Exam Present: soft, normoactive bowel sounds. Absent: tenderness, firm - *Routine Extremities Exam Present: full ROM, pulses intact. Absent: cyanosis, clubbing, edema - *Routine Skin Exam Present: intact, dry. Absent: cyanosis, erythema, jaundice - *Routine Neurological Exam Present: alert, altered mental status. Absent: motor deficit - Routine Psychiatric Exam Present: unable to assess Assessment and Plan (1) Acute on chronic diastolic (congestive) heart failure Status: Acute Category: Medical Code(s): I50.33 - Acute on chronic diastolic (congestive) heart failure (2) Tobacco use Status: Acute Category: Social Hx Code(s): Z72.0 - Tobacco use (3) CKD (chronic kidney disease) stage 4, GFR 15-29 ml/min Status: Acute Category: Medical Code(s): N18.4 - Chronic kidney disease, stage 4 (severe) (4) Acute exacerbation of chronic obstructive airways disease Status: Acute Category: Medical Code(s): J44.1 - Chronic obstructive pulmonary disease with (acute) exacerbation (5) CAD (coronary artery disease) Status: Chronic Qualifiers: Coronary Disease-Associated Artery/Lesion type: bypass graft [place] vs. transplanted heart: [place] heart Associated angina: with other forms of angina Qualified Code(s): I25.708 - Atherosclerosis of coronary artery bypass graft(s), unspecified, with other forms of angina pectoris Category: Medical Code(s): I25.10 - Atherosclerotic heart disease of [place] coronary artery without angina pectoris (6) CKD (chronic kidney disease) stage 5, GFR less than 15 ml/min Status: Acute Category: Medical Code(s): N18.5 - Chronic kidney disease, stage 5 (7) History of mitral valve replacement Status: Acute Category: Surgical Code(s): Z95.2 - Presence of prosthetic heart valve (8) Thoracic aortic aneurysm Status: Acute Category: Medical Code(s): I71.2 - Thoracic aortic aneurysm, without rupture (9) Hypertension Status:
--- NOTE | 2021-11-21 11:26 | PC.NURSE ---
Pt in lab aid at this time
--- NOTE | 2021-11-21 12:39 | HMH.PNCARD ---
Subjective Date: 11/21/21 Time: 08:30 Principal diagnosis: CHF, CKD Interval history: This is a 56-year-old white female who presented to the emergency department from [facility] for an acute exacerbation of her congestive heart failure. She also has chronic kidney disease and is currently seeing nephrology on an outpatient basis and being worked up to initiate dialysis. Pt's SOA worsened overnight and her pulse ox readings lowered. she is now on a non-rebreather. she denies SOB when asked, but she appears short of breath just talking. denies CP or pressure. denies edema. denies fevers, chills, n/v/d. she does have orthopnea because she is unable to lie flat when her bed is lowered. but she denies SOB. she is able to answer all questions appropriately, but she has underlying dementia and psych issues. I am not sure her ROS is accurate. Exam Vital signs and Labs for Last 24 Hours: Temp Pulse Resp BP Pulse Ox 98.5 F 62 17 122/64 86 L 11/21/21 08:00 11/21/21 12:35 11/21/21 12:35 11/21/21 12:35 11/21/21 12:35 Laboratory Results - last 24 hr 11/21/21 05:26: Sodium 137, Potassium 3.1 L, Chloride 96 L, Carbon Dioxide 37 H, Anion Gap 7.1, BUN 47 H, Creatinine 5.20 H, Estimated Creat Clear 15, Estimated GFR 9 L*, Est GFR ( Amer) 10 L*, Glucose 102 H, Calcium 9.0 11/21/21 05:26: WBC 5.2, RBC 3.32 L, Hgb 9.2 L, Hct 27.7 L, MCV 83.5, MCH 27.8, MCHC 33.2, RDW 17.0, Plt Count 241 D, MPV 8.5, Neut % (Auto) 70.5, Lymph % (Auto) 15.4, [place] % (Auto) 9.9 H, Eos % (Auto) 2.9, Baso % (Auto) 1.3, Neut # (Auto) 3.7, Lymph # (Auto) 0.8, [place] # (Auto) 0.5, Eos # (Auto) 0.2, Baso # (Auto) 0.1 I & O for Last 24 hours: Intake & Output 11/18/21 11/19/21 11/20/21 11/21/21 23:59 23:59 23:59 23:59 Intake Total 1025 / 1025 360 / 360 442 / 442 Output Total 3100 / 4600 3500 / 4925 1425 / 1425 Balance -2075 / -3575 -3140 / -4565 -983 / -983 Weight 168 lb 168 lb 0.017 oz 167 lb 15.876 oz 167 lb 15.876 oz Microbiology Reports for the Last 24 Hours: Microbiology 11/18/21 22:29 Blood Blood Culture - Preliminary NO GROWTH AFTER 48 HOURS 11/18/21 22:29 Blood Blood Culture - Preliminary NO GROWTH AFTER 48 HOURS Narrative: Echo shows: 1. Mild biatrial alignment, normal left ventricular size, mild concentric left ventricular hypertrophy, estimated ejection fraction 55% with no regional wall motion abnormality, Doppler evidence of impaired LV relaxation seen. 2. Bioprosthetic valve in the aortic position, mean gradient is 31 mmHg, valve area is 1.4 cm???, there is no significant aortic insufficiency. 3. Enlarged ascending aorta as described above, a CT scan of the chest with contrast is recommended to assess the size of the ascending aorta and thoracic aneurysm. 4. Mild mitral and tricuspid regurgitation. 5. No significant pericardial effusion. 6. Inferior vena cava is poorly visualized. - Constitutional no acute distress, average body habitus - *Routine HEENT Exam Head: Present: normocephalic, atraumatic Eye: Present: EOMI, PERRL ENT: Present: mucous membranes moist - *Routine Neck Exam Present: supple, full ROM, normal carotid upstroke. Absent: JVD, carotid bruit, lymphadenopathy - *Routine Respiratory Exam Present: decreased breath sounds, rales, wheezes, crackles - *Routine Cardiovascular Exam Present: RRR, Normal S1, Normal S2, murmur - *Routine Abdominal Exam Present: soft, normoactive bowel sounds. Absent: tenderness, distended - *Routine Extremities Exam Present: full ROM, pulses intact, normal capillary refill. Absent: cyanosis, clubbing, edema - *Routine Skin Exam Present: intact, warm. Absent: erythema, rash - *Routine Neurological Exam Present: alert, oriented X3, CN II-XII intact, altered mental status. Absent: sensory deficit, motor deficit Progress Note: A&P (1) Acute on chronic diastolic (congestive) heart failure Stat
--- NOTE | 2021-11-21 14:54 | HMH.PULMCON ---
*Admission Date: 11/19/21 *Reason for consult:: Acute on chronic hypoxic respiratory failure *History of present illness: Ms. Brown is a 56-year-old female greater than [id number] smoking history, COPD, the hospital and discharged after being managed for volume overload and COPD exacerbation presented to the hospital again for worsening respiratory distress and pulmonary was called for further management. Admits worsening lower extremity swelling. Denies any subjective fevers or chills or worsening productive phlegm. Denies any known sick contacts. [facility] History Medical History: Reports:: Atherosclerotic Heart Disease, Congestive Heart Failure, Coronary Artery Disease, Hyperlipidemia, Hypertension, Renal Insufficiency, Valvular Heart Disease Denies:: Cancer, Diabetes Mellitus Type 1, Diabetes Mellitus Type 2, Migraine, MRSA, Myocardial Infarction *Have you ever received a pneumonia vaccine?: No *Have you received a flu vaccine this season?: Yes Other Medical History: Reports: Anemia, Arthritis. Denies: Hypothyroidism Other Surgeries: Yes: CABG, Cardiac Catheterization, Cardiac Surgery, Colonoscopy, , Open Heart Surgery, Other Valve Replacement Amputation: No Fractures: No - *Social History Last grade of school completed: 11th or 12th Smoking Status: Current every day smoker Tobacco Type: cigarettes # Packs/Day (cigarettes): 1 Alcohol Intake: never *Occupational Status:: disabled Household Members: children *Travel in the last 8 weeks: None Family Hx:: Anemia, Hypertension, Stroke ROS - Cons Denies anorexia, Denies body ache(s) - ENT Denies difficulty swallowing - Card Reports shortness of breath, Reports shortness of breath with activity, Reports leg swelling - Resp Respiratory: Reports shortness of breath, Denies change in phlegm color, Denies chest congestion, Reports dyspnea, Denies excessive phlegm production - GI Gastrointestingal: Denies: abdominal pain - Psych Denies thoughts of hurting/killing others, Denies thoughts of hurting/killing yourself Meds Home Medications Medication Instructions Recorded Confirmed Type Melatonin 10 mg PO HS 01/04/21 11/18/21 History atorvastatin 40 mg tablet 40 mg PO HS 06/12/21 11/18/21 History famotidine 20 mg tablet 20 mg PO HS 06/12/21 11/18/21 History hydralazine 100 mg tablet 100 mg PO TID 06/12/21 11/18/21 History sodium bicarbonate 650 mg tablet 650 mg PO TID tab 06/12/21 11/18/21 History trazodone 50 mg tablet 50 mg PO HS 06/12/21 11/18/21 History Sevelamer Carbonate [Renvela] 800 mg PO TID 07/07/21 11/18/21 History gabapentin 100 mg capsule 100 mg PO TID #90 cap 08/25/21 11/18/21 Rx hydrocodone 5 mg-acetaminophen 325 1 tab PO BID #60 tab 11/15/21 11/18/21 Rx mg tablet Aspirin [Aspirin 81mg EC Tab] 81 mg PO DAILY 11/18/21 11/18/21 History Ferrous Sulfate [Ferrous Sulfate 325 mg PO DAILY 11/18/21 11/18/21 History 325mg Tab] Furosemide [Furosemide 20mg Tab*] 20 mg PO DAILY 11/18/21 11/18/21 History Isosorbide Mononitrate [Isosorbide 60 mg PO DAILY 11/18/21 11/18/21 History Mononitrate ER] Multivitamin 1 each PO DAILY 11/18/21 11/18/21 History Sertraline HCl 100 mg PO DAILY 11/18/21 11/18/21 History carvediloL [Coreg 25mg Tablet] 12.5 mg PO BID 11/18/21 11/18/21 History polyethylene glycoL 3350 [Miralax 17 gm PO DAILY 11/18/21 11/18/21 History 17gm Packet] Albuterol Sulfate [Albuterol 1 puff INHALATION Q6HP PRN 11/19/21 11/19/21 History Sulfate Hfa] Budesonide/Formoterol Fumarate 21 puffs IH BID 11/19/21 11/19/21 History [Symbicort 80-4.5 Mcg Inhaler] Cyanocobalamin (Vitamin B-12) 50 mcg PO DAILY 11/19/21 11/19/21 History [Vitamin B-12] Allergies Allergy/AdvReac Type Severity Reaction Status Date / Time No Known Allergies Allergy Verified 10/23/21 10:55 Exam - Constitutional Constitutional:: Present: no acute distress, comfortable - HENMT Exam HENMT: Present: normocephalic - Eye Exam Eyes:: Pres
--- NOTE | 2021-11-21 16:14 | PC.NURSE ---
Pt has been successfully weaned down to 6L NC, pts O2 sat is currently 92%. Pt has had no C/O SOB this shift. Hector cath has drained approx 1500 ml this shift, urine is cloudy and light yellow in appearance. VSS since coming back to the floor from analytical laboratory technician. has called x2 this shift stating there are no beds available at this time. No other acute changes.
[2021-11-22] VITALS (10 sets, daily range): BP systolic 112–144; BP diastolic 57–72; PULSE 69–86; RESP 14–21; TEMP 36.6–36.9; O2SAT 91–97; BMI 28.6
--- NOTE | 2021-11-22 06:11 | PC.NURSE ---
Patient has remained on 6LNC this RN's shift with no acute events. Patient's oxygen has been maintained in the mid 90s. She remains NSR on telemetry. Dialysis sheath placement is C/D/I.
[2021-11-22 06:40] LABS: Chloride 93 mmol/L (98-107)
[2021-11-22 06:41] LABS: Potassium 3.3 mmoL/L (3.5-5.1); Sodium 136 mmol/L (136-145)
[2021-11-22 06:42] LABS: Basophils % 0.3 % (0.1-2.0); Eosinophils % 0.1 % (0.1-12.0); Hematocrit 29.8 % (37.0-47.0); Hemoglobin 9.5 g/dL (12.2-16.2); Lymphocytes # 0.4 K/mm3 (0.7-4.5); Lymphocytes % 6.7 % (10-50); Mean Corpuscular HGB Conc 31.7 g/dL (31.8-35.4); Mean Corpuscular Hemoglobin 26.3 pg (27.0-31.2); Mean Platelet Volume 7.9 fl (7.4-10.4); Monocytes # 0.4 K/mm3 (0.1-1.0); Monocytes % 5.6 % (1.7-9.3); Neutrophils # 5.7 K/mm3 (1.8-7.8); Neutrophils % 87.2 % (37.0-80.0); Platelet Count 258 K/mm3 (142-424); Red Cell Distribution Width 15.7 % (11.5-17.5); White Blood Count 6.6 K/mm3 (4.8-10.8)
[2021-11-22 06:43] LABS: Blood Urea Nitrogen 50 mg/dl (7-17); Creatinine Clearance Estimated 15 mL/min (50-200); Estimated Glomerular Filt Rate 9 ml/min (>60); GFR (African American) 11 ML/MIN (>60)
[2021-11-22 06:44] LABS: Anion Gap 10.3 mEq/L (5-15); Calcium 9.3 mg/dl (8.4-10.2); Carbon Dioxide 36 mmol/L (22.0-30.0); Glucose 183 mg/dl (74-100)
[2021-11-22 06:45] LABS: MANUAL DIFFERENTIAL MANUAL DIFFERENTIAL (MANUAL DIFF)
--- NOTE | 2021-11-22 06:48 | PC.NURSE ---
Stefanie from lab called with a critical creat. of 5.10 on the patient. Name, , and value verified x2. Dr. Irene notified at this time.
[2021-11-22 07:22] LABS: Hepatitis B Surf Ab Quant <3.1 mIU/mL (Immunity>9.9); Hepatitis B Surface Antigen Negative (Negative); Hepatitis C Antibody <0.1 s/co ratio (0.0-0.9)
--- NOTE | 2021-11-22 09:03 | HMH.PNCARD ---
Subjective Date: 11/22/21 Time: 08:45 Principal diagnosis: CHF, CKD Interval history: This is a 56-year-old white female presented to the emergency department from [facility] with an acute exacerbation of her diastolic congestive heart failure and worsening of her chronic kidney disease. The patient has been seeing nephrology on an outpatient basis and was being worked up to initiate dialysis but she has yet to start dialysis at this time. Due to her GFR of 9 and her acute exacerbation of diastolic congestive heart failure a temporary dialysis sheath was placed yesterday in order to initiate dialysis. We are currently awaiting transfer to a facility where she can be started on dialysis. [facility] is still awaiting a bed at this time. She states that her shortness of breath is better today. She is on nasal cannula at 2 L/min while I am in the room and feeling better after diuresis yesterday. Her fluid balance overnight is a -3143. Her GFR remains at 9 this morning. She denies any chest pain or pressure. She denies any shortness of breath or edema. She denies any fever, chills, nausea, vomiting, diarrhea. She does have orthopnea and refuses to lie flat due to this making her short of breath. The patient does have some underlying dementia and psychiatric issues so it does make the review of system difficult to know if it is accurate but she does answer all my questions appropriately this morning. Exam Vital signs and Labs for Last 24 Hours: Temp Pulse Resp BP Pulse Ox 98.0 F 81 16 144/72 H 97 11/22/21 08:00 11/22/21 08:00 11/22/21 08:00 11/22/21 08:00 11/22/21 08:00 Laboratory Results - last 24 hr 11/20/21 15:42: Hep Bs Antigen Negative, Hep Bs Antibody, Quant <3.1 L, Hepatitis C Antibody <0.1 11/22/21 06:07: WBC 6.6 D, RBC 3.60 L, Hgb 9.5 L, Hct 29.8 L, MCV 83.0, MCH 26.3 L, MCHC 31.7 L, RDW 15.7, Plt Count 258, MPV 7.9, Neut % (Auto) 87.2 H, Lymph % (Auto) 6.7 L, Dunn % (Auto) 5.6, Eos % (Auto) 0.1, Baso % (Auto) 0.3, Neut # (Auto) 5.7, Lymph # (Auto) 0.4 L, Dunn # (Auto) 0.4, Eos # (Auto) 0.0, Baso # (Auto) 0.0 11/22/21 06:07: Sodium 136, Potassium 3.3 L, Chloride 93 L, Carbon Dioxide 36 H, Anion Gap 10.3, BUN 50 H, Creatinine 5.10 H, Estimated Creat Clear 15, Estimated GFR 9 L*, Est GFR ( Amer) 11 L*, Glucose 183 H, Calcium 9.3 I & O for Last 24 hours: Intake & Output 11/19/21 11/20/21 11/21/21 11/22/21 23:59 23:59 23:59 23:59 Intake Total 1025 / 1025 360 / 360 682 / 682 Output Total 3100 / 4600 3500 / 4925 3825 / 4525 700 / 700 Balance -2075 / -3575 -3140 / -4565 -3143 / -3843 -700 / -700 Weight 168 lb 0.017 oz 167 lb 15.876 oz 167 lb 15.876 oz 167 lb 15.876 oz - Constitutional no acute distress, average body habitus - *Routine HEENT Exam Head: Present: normocephalic, atraumatic Eye: Present: EOMI, PERRL ENT: Present: mucous membranes moist - *Routine Neck Exam Present: supple, full ROM, carotid bruit. Absent: JVD, normal carotid upstroke, lymphadenopathy - *Routine Respiratory Exam Present: decreased breath sounds, rales - *Routine Cardiovascular Exam Present: RRR, Normal S1, Normal S2, murmur - *Routine Abdominal Exam Present: soft, normoactive bowel sounds. Absent: tenderness, distended - *Routine Extremities Exam Present: full ROM, pulses intact, normal capillary refill. Absent: cyanosis, clubbing, edema - *Routine Skin Exam Present: intact, warm. Absent: erythema, rash - *Routine Neurological Exam Present: alert, oriented X3, CN II-XII intact, altered mental status. Absent: sensory deficit, motor deficit Progress Note: A&P (1) Acute on chronic diastolic (congestive) heart failure Status: Acute (2) CKD (chronic kidney disease) stage 5, GFR less than 15 ml/min Status: Acute (3) Acute exacerbation of chronic obstructive airways disease Status: Acute (4) CAD (coronary artery disease) Status: Chronic (5) History of mitral valve replacement Stat
--- NOTE | 2021-11-22 09:35 | HMH.PULMPN ---
Internal Medicine - PN: Subj *Date: 11/22/21 *Time: 11:11 Interval history: No acute respiratory events overnight. Admits improvement in her symptoms. Weaned to 2 L nasal cannula. Exam - Constitutional Constitutional:: Present: no acute distress, comfortable - HENMT Exam HENMT: Present: normocephalic - Eye Exam Eyes:: Present: normal appearance both eyes and related structures - Neck Exam Neck:: Present: normal visual inspection - Respiratory Exam Respiratory:: Present: able to speak in complete sentences, no respiratory distress. Absent: wheezing - Cardiovascular Exam Cardiac:: Present: S1, S2 - GI Exam GI:: Present: soft - Skin Exam Skin: Present: warm, no rash - Neurological Exam Neurological: Present: alert, awake - Extremities Exam Extremities: Present: no cyanosis, no clubbing Assessment and Plan (1) Acute on chronic diastolic (congestive) heart failure Status: Acute Category: Medical Code(s): I50.33 - Acute on chronic diastolic (congestive) heart failure (2) CKD (chronic kidney disease) stage 5, GFR less than 15 ml/min Status: Acute Category: Medical Code(s): N18.5 - Chronic kidney disease, stage 5 (3) Acute exacerbation of chronic obstructive airways disease Status: Acute Category: Medical Code(s): J44.1 - Chronic obstructive pulmonary disease with (acute) exacerbation (4) CAD (coronary artery disease) Status: Chronic Qualifiers: Coronary Disease-Associated Artery/Lesion type: bypass graft [place] vs. transplanted heart: [place] heart Associated angina: with other forms of angina Qualified Code(s): I25.708 - Atherosclerosis of coronary artery bypass graft(s), unspecified, with other forms of angina pectoris Category: Medical Code(s): I25.10 - Atherosclerotic heart disease of [place] coronary artery without angina pectoris (5) History of mitral valve replacement Status: Acute Category: Surgical Code(s): Z95.2 - Presence of prosthetic heart valve (6) Thoracic aortic aneurysm Status: Acute Category: Medical Code(s): I71.2 - Thoracic aortic aneurysm, without rupture (7) Hypertension Status: Chronic Qualifiers: Hypertension type: primary hypertension Qualified Code(s): I10 - Essential (primary) hypertension Category: Medical Code(s): I10 - Essential (primary) hypertension (8) HLD (hyperlipidemia) Status: Chronic Qualifiers: Hyperlipidemia type: mixed hyperlipidemia Qualified Code(s): E78.2 - Mixed hyperlipidemia Category: Medical Code(s): E78.5 - Hyperlipidemia, unspecified (9) History of coronary artery bypass graft Status: Chronic Category: Surgical Code(s): Z95.1 - Presence of aortocoronary bypass graft (10) Tobacco use Status: Acute Category: Social Hx Code(s): Z72.0 - Tobacco use - Assessment and plan all Dx Assessment and Plan for all problems:: #Acute on Chronic hypoxic respiratory failure: #COPD exacerbation Current smoker greater than [id number] smoking history. Carries a diagnosis COPD on Symbicort inhaler. Recently discharged from the hospital earlier this month after being managed for volume overload and COPD exacerbation. She does carry a history of CKD initiated on dialysis. Presented with worsening respiratory distress. Denies any cough or worsening productive and more subjective fevers or chills. Chest likely did not show any dense consolidation, questionable left retrocardiac opacity. Comment bilateral lower lobe chronic changes and evidence of prior granulomatous disease with calcified nodules. On examination patient appeared to be in mild respiratory distress. Decreased breath sounds in both lung miller. BiBasilar crackles Afebrile. No evidence of leukocytosis. Given bilateral decreased breath sounds and questionable left retrocardiac opacity will initiate patient on treatment for COPD exacerbation/pneumonia Interval update: Breath sounds improved from yesterday. Oxygen
[2021-11-22 09:48] LABS: Lymphocytes % 5 % (10-50); Monocytes % 4 % (2-9); Neutrophils % 91 % (42-76); Platelet Estimate Normal; RBC Morphology Normal; Total Cells Counted 100
--- NOTE | 2021-11-22 10:08 | DIET.NUTRFU ---
RD rounded with Dr Irene this AM, she continues to tolerate renal diet with good meal intake 50-75%. She had a shunt for HD placed yesterday. Hoping to decrease oxygen today to discharge to rehab awaiting HD. Urine output good, 4L yesterday. BUN/Cr still elevated but possibly at new baseline with ESRD. Pateint wants to return back to [facility] with current health needs. Will review and provide handouts on renal diet with patient
--- NOTE | 2021-11-22 14:27 | CARE MANAGER ---
Faxed information to [place] ([facility]) to set patient up for a dialysis chair as an outpatient. They state that they have all the labs and demographic information needed, all they need is the nephrology orders which Dr. Castillo office states they will send to the [facility] location. Patient will likely discharge today thus all this information was forwarded to CIARA Pineda at [facility] for continuation of care.
--- NOTE | 2021-11-22 15:09 | HMH.ACPN2 ---
Internal Medicine - PN: Subj *Date: 11/22/21 *Time: 15:34 Interval history: pt doing ok this am will try to wean down o2 Exam Vital signs and Labs for Last 24 Hours: Temp Pulse Resp BP Pulse Ox 97.9 F 81 21 112/65 91 L 11/22/21 12:00 11/22/21 12:00 11/22/21 12:00 11/22/21 12:00 11/22/21 12:00 Laboratory Results - last 24 hr 11/20/21 15:42: Hep Bs Antigen Negative, Hep Bs Antibody, Quant <3.1 L, Hepatitis C Antibody <0.1 11/22/21 06:07: WBC 6.6 D, RBC 3.60 L, Hgb 9.5 L, Hct 29.8 L, MCV 83.0, MCH 26.3 L, MCHC 31.7 L, RDW 15.7, Plt Count 258, MPV 7.9, Neut % (Auto) 87.2 H, Lymph % (Auto) 6.7 L, [place] % (Auto) 5.6, Eos % (Auto) 0.1, Baso % (Auto) 0.3, Neut # (Auto) 5.7, Lymph # (Auto) 0.4 L, [place] # (Auto) 0.4, Eos # (Auto) 0.0, Baso # (Auto) 0.0, Total Counted 100, Neutrophils % (Manual) 91 H, Lymphocytes % (Manual) 5 L, Monocytes % (Manual) 4, Platelet Estimate Normal, RBC Morphology Normal 11/22/21 06:07: Sodium 136, Potassium 3.3 L, Chloride 93 L, Carbon Dioxide 36 H, Anion Gap 10.3, BUN 50 H, Creatinine 5.10 H, Estimated Creat Clear 15, Estimated GFR 9 L*, Est GFR ( Amer) 11 L*, Glucose 183 H, Calcium 9.3 I & O for Last 24 hours: Intake & Output 11/20/21 11/21/21 11/22/21 11/23/21 11:59 11:59 11:59 11:59 Intake Total 360 / 360 682 / 682 720 / 720 240 / 240 Output Total 3650 / 3650 2625 / 2625 3100 / 3100 3000 / 3000 Balance -3290 / -3290 -1943 / -1943 -2380 / -2380 -2760 / -2760 Weight 167 lb 15.876 oz 167 lb 15.876 oz 167 lb 15.876 oz - Constitutional no acute distress - *Routine HEENT Exam Head: Present: normocephalic Eye: Present: EOMI, PERRL ENT: Present: mucous membranes dry - *Routine Neck Exam Absent: JVD - *Routine Respiratory Exam Present: decreased breath sounds - *Routine Cardiovascular Exam Present: RRR - *Routine Abdominal Exam Present: soft - *Routine Extremities Exam Present: edema - *Routine Skin Exam Present: intact - *Routine Neurological Exam Present: alert, CN II-XII intact - Routine Psychiatric Exam Present: cooperative Assessment and Plan (1) Acute on chronic diastolic (congestive) heart failure Status: Acute Category: Medical Code(s): I50.33 - Acute on chronic diastolic (congestive) heart failure (2) CKD (chronic kidney disease) stage 5, GFR less than 15 ml/min Status: Acute Category: Medical Code(s): N18.5 - Chronic kidney disease, stage 5 (3) Acute exacerbation of chronic obstructive airways disease Status: Acute Category: Medical Code(s): J44.1 - Chronic obstructive pulmonary disease with (acute) exacerbation (4) CAD (coronary artery disease) Status: Chronic Qualifiers: Coronary Disease-Associated Artery/Lesion type: bypass graft [place] vs. transplanted heart: [place] heart Associated angina: with other forms of angina Qualified Code(s): I25.708 - Atherosclerosis of coronary artery bypass graft(s), unspecified, with other forms of angina pectoris Category: Medical Code(s): I25.10 - Atherosclerotic heart disease of [place] coronary artery without angina pectoris (5) History of mitral valve replacement Status: Acute Category: Surgical Code(s): Z95.2 - Presence of prosthetic heart valve (6) Thoracic aortic aneurysm Status: Acute Category: Medical Code(s): I71.2 - Thoracic aortic aneurysm, without rupture (7) Hypertension Status: Chronic Qualifiers: Hypertension type: primary hypertension Qualified Code(s): I10 - Essential (primary) hypertension Category: Medical Code(s): I10 - Essential (primary) hypertension (8) HLD (hyperlipidemia) Status: Chronic Qualifiers: Hyperlipidemia type: mixed hyperlipidemia Qualified Code(s): E78.2 - Mixed hyperlipidemia Category: Medical Code(s): E78.5 - Hyperlipidemia, unspecified (9) History of coronary artery bypass graft Status: Chronic Category: Surgical Code(s): Z95.1 - Presence of aortocoronary bypass graft
--- NOTE | 2021-11-22 18:46 | PC.NURSE ---
Pt has done well this shift. No complaints. Pt was able to be weaned down to 2L NC. Pt requested for hoang cath to be removed so she can walk around room more often. Hoang ctah removed, hat placed in pt's bathroom so nursing staff can still monitor strict I&O's. Pt has done fine ambulating. Urine is dark yellow and cloudy. Pt has had x1 large BM this shift. No other acute changes or complaints, will continue to monitor.
[2021-11-22 19:10] LABS: QuantiFERON-TB Gold Plus Negative (Negative)
[2021-11-23] VITALS: BP 145/63; PULSE 79; PULSE 80; RESP 16; TEMP 37.2; O2SAT 93
[2021-11-23 04:00] VITALS: BP 130/63; PULSE 77; PULSE 80; RESP 20; TEMP 36.6; O2SAT 97
[2021-11-23 05:00] VITALS: BMI 10.8
[2021-11-23 06:10] VITALS: PULSE 79
[2021-11-23 06:44] LABS: Chloride 93 mmol/L (98-107); Potassium 3.3 mmoL/L (3.5-5.1); Sodium 136 mmol/L (136-145)
[2021-11-23 06:47] LABS: Anion Gap 13.3 mEq/L (5-15); Blood Urea Nitrogen 54 mg/dl (7-17); Calcium 9.4 mg/dl (8.4-10.2); Carbon Dioxide 33 mmol/L (22.0-30.0); Cholesterol 158 mg/dl (140-200); Creatinine Clearance Estimated 6 mL/min (50-200); Estimated Glomerular Filt Rate 9 ml/min (>60); GFR (African American) 11 ML/MIN (>60); Glucose 147 mg/dl (74-100); Triglycerides 154 mg/dl (30-150); VLDL Cholesterol 31 mg/dL (0-40)
[2021-11-23 06:48] LABS: Chol/HDL Ratio 4.6 (1-3.5); HDL Cholesterol 34 mg/dl (40-60)
[2021-11-23 06:58] LABS: Direct LDL Cholesterol 66.92 mg/dL (100-129)
[2021-11-23 08:00] VITALS: BP 101/65; PULSE 71; PULSE 80; RESP 18; TEMP 36.7; O2SAT 93; O2SAT 97
--- NOTE | 2021-11-23 09:15 | HMH.DCSUM ---
General - General Admission date:: 11/19/21 Discharge date: 11/23/21 HPI HPI: this patient presented to [facility] ed from [facility] last pm with hx of copd/chf and crf - no def chest pain but has increased sob and lower ext swelling -pt with low o2 sat at [facility] - pt has been compliant with meds and has seen nephrology -pt does use tob Hospital Course Hospital Course: pt was admitted with acute chf and copd complicated by esrd - pt has had urine output with diuretics but has not improved renal function and was seen by card with temp shunt placed and dialysis arranged as op next week - a 56-year-old white female who presented to the emergency department from [facility] for an acute exacerbation of her congestive heart failure. The patient was having increased shortness of breath and bilateral lower extremity edema and was brought here to the emergency department. Pulse oximetry was also low at the [facility]. She does have chronic kidney disease and is currently seeing nephrology on an outpatient basis and being worked up to initiate dialysis. Most of the patient's information is coming from her medical records. Today she tells me that she really does not remember what happened and why she was brought here to the emergency department. She does remember that she has been short of breath for the last few days and had some lower extremity edema but she was unsure if that was why she was here. She states that her shortness of breath is much better today. She denies any lower extremity edema today. She denies any chest pain or pressure. She denies any fever, chills, nausea, vomiting, diarrhea. The patient was admitted to the hospital with shortness of breath and edema. She was found to be in acute exacerbation of diastolic congestive heart failure. The patient was treated with IV chlorothiazide and IV Lasix. She had a -2180 fluid balance overnight. She is now on oral torsemide. 2. The patient does have chronic kidney disease stage V. Her GFR is less than 15. The patient should be transferred to a tertiary care facility where she can undergo dialysis. She has been following with nephrology on an outpatient basis but the patient is unable to tell me where she is in the process of being initiated on dialysis. Dr. Archibald wants to place a temporary dialysis sheath today so she can be transferred to undergo dialysis. 3. The patient has been she had the risk and benefits of proceeding with dialysis sheath placement. The patient verbalized understanding and is agreeable in proceeding with the procedure. 4. The patient will be n.p.o. in preparation for dialysis sheath placement. 5. Her blood pressure is well controlled. 6. Her LDL goal is less than 55. 7. The patient does have a stable ascending thoracic aortic aneurysm and distal aortic arch aneurysm. This is followed on an outpatient basis. pt was seen by pul med also-current smoker greater than [id number] smoking history. Carries a diagnosis COPD on Symbicort inhaler. Recently discharged from the hospital earlier this month after being managed for volume overload and COPD exacerbation. She does carry a history of CKD initiated on dialysis. Presented with worsening respiratory distress. Denies any cough or worsening productive and more subjective fevers or chills. Chest likely did not show any dense consolidation, questionable left retrocardiac opacity. Comment bilateral lower lobe chronic changes and evidence of prior granulomatous disease with calcified nodules. On examination patient appeared to be in mild respiratory distress. Decreased breath sounds in both lung miller. BiBasilar crackles Afebrile. No evidence of leukocytosis. Given bilateral decreased breath sounds and questionable left retrocardiac opacity will initiate patient on treatment for COPD exacerbation/pneumonia Plan: -Continue oxygen supplementation to maintain O2 saturation goal of 90% and above, patient currently on 4
--- NOTE | 2021-11-23 09:49 | PC.NURSE ---
Patient being discharged to [facility] per Dr. Irene.
[2021-11-23 10:14] LABS: Hep B Core Ab, Total Negative (Negative); Hepatitis B Core Antibody IgM Negative (Negative)
--- NOTE | 2021-11-23 10:41 | HMH.PNCARD ---
Subjective Date: 11/23/21 Time: 10:45 Principal diagnosis: CHF, CKD Interval history: This is a 56-year-old white female who presented to the emergency department from [facility] for an acute exacerbation of diastolic congestive heart failure and worsening of her chronic kidney disease. The patient has been seeing nephrology as an outpatient and being worked up to start dialysis but had yet to be initiated on dialysis. The patient underwent temporary dialysis sheath placement since being admitted to the hospital to initiate dialysis but transferring the patient to a facility where dialysis could be started has been unsuccessful. She has been diuresed with IV Lasix and she does have a -2740 fluid balance overnight. Her GFR remains at 9. She is now on room air with stable oxygen saturations. She denies any chest pain or pressure. She denies any shortness of breath or edema. She denies any fever, chills, nausea, vomiting or diarrhea. She still has some orthopnea at times and refuses to lie flat due to shortness of breath. The patient does have underlying dementia/psychiatric issues but is answering all questions appropriately. Exam Vital signs and Labs for Last 24 Hours: Temp Pulse Resp BP Pulse Ox 98.5 F 86 20 187/89 H 93 L 11/23/21 08:00 11/23/21 08:00 11/23/21 08:00 11/23/21 08:00 11/23/21 08:00 Laboratory Results - last 24 hr 11/20/21 15:42: TB Test (QFT) Nil 0.00, TB Test (QFT) Mitogen >10.00, TB Test (QFT) Ag 1 0.00, TB Test (QFT) Ag 2 0.01, TB Positive Criteria Comment, TB Test (QFT) Interp Negative 11/22/21 10:06: Hep B Core Total Ab Negative, Hep B Core IgM Ab Negative 11/23/21 05:30: Sodium 136, Potassium 3.3 L, Chloride 93 L, Carbon Dioxide 33 H, Anion Gap 13.3, BUN 54 H, Creatinine 4.80 H, Estimated Creat Clear 6, Estimated GFR 9 L*, Est GFR ( Amer) 11 L*, Glucose 147 H, Calcium 9.4, Triglycerides 154 H, Cholesterol 158, LDL Cholesterol Direct 66.92 L, VLDL Cholesterol 31, HDL Cholesterol 34 L, Cholesterol/HDL Ratio 4.6 H I & O for Last 24 hours: Intake & Output 11/20/21 11/21/21 11/22/21 11/23/21 23:59 23:59 23:59 23:59 Intake Total 360 / 360 682 / 682 960 / 960 225 / 225 Output Total 3500 / 4925 3825 / 4525 3700 / 4200 1050 / 1050 Balance -3140 / -4565 -3143 / -3843 -2740 / -3240 -825 / -825 Weight 167 lb 15.876 oz 167 lb 15.876 oz 167 lb 15.876 oz 63 lb 0.835 oz Narrative: Telemetry strip is sinus rhythm. - Constitutional no acute distress, average body habitus - *Routine HEENT Exam Head: Present: normocephalic, atraumatic Eye: Present: EOMI, PERRL ENT: Present: mucous membranes moist - *Routine Neck Exam Present: supple, full ROM, carotid bruit, normal carotid upstroke. Absent: JVD, lymphadenopathy - *Routine Respiratory Exam Present: decreased breath sounds - *Routine Cardiovascular Exam Present: RRR, Normal S1, Normal S2, murmur - *Routine Abdominal Exam Present: soft, normoactive bowel sounds. Absent: tenderness - *Routine Extremities Exam Present: full ROM, pulses intact, normal capillary refill. Absent: cyanosis, clubbing, edema - *Routine Skin Exam Present: intact, warm. Absent: erythema, rash - *Routine Neurological Exam Present: alert, oriented X3, CN II-XII intact, altered mental status. Absent: sensory deficit, motor deficit Progress Note: A&P (1) Acute on chronic diastolic (congestive) heart failure Status: Acute (2) CKD (chronic kidney disease) stage 5, GFR less than 15 ml/min Status: Acute (3) Acute exacerbation of chronic obstructive airways disease Status: Acute (4) CAD (coronary artery disease) Status: Chronic (5) History of mitral valve replacement Status: Acute (6) Thoracic aortic aneurysm Status: Acute (7) Hypertension Status: Chronic (8) HLD (hyperlipidemia) Status: Chronic (9) History of coronary artery bypass graft Status: Chronic (10) Tobacco use Status: Acute Assessment and Plan for A
--- NOTE | 2021-11-23 11:07 | HMH.PULMPN ---
Internal Medicine - PN: Subj *Date: 11/23/21 *Time: 11:07 Interval history: No acute respiratory events overnight. Exam - Constitutional Constitutional:: Present: no acute distress, comfortable - HENMT Exam HENMT: Present: normocephalic - Eye Exam Eyes:: Present: normal appearance both eyes and related structures - Neck Exam Neck:: Present: normal visual inspection - Respiratory Exam Respiratory:: Present: able to speak in complete sentences, no respiratory distress. Absent: wheezing - Cardiovascular Exam Cardiac:: Present: S1, S2 - GI Exam GI:: Present: soft - Skin Exam Skin: Present: warm, no rash - Neurological Exam Neurological: Present: alert, awake - Extremities Exam Extremities: Present: no cyanosis, no clubbing - Psychiatric Exam Psychiatric: Present: flat affect Assessment and Plan (1) Acute on chronic diastolic (congestive) heart failure Status: Acute Category: Medical Code(s): I50.33 - Acute on chronic diastolic (congestive) heart failure (2) CKD (chronic kidney disease) stage 5, GFR less than 15 ml/min Status: Acute Category: Medical Code(s): N18.5 - Chronic kidney disease, stage 5 (3) Acute exacerbation of chronic obstructive airways disease Status: Acute Category: Medical Code(s): J44.1 - Chronic obstructive pulmonary disease with (acute) exacerbation (4) CAD (coronary artery disease) Status: Chronic Qualifiers: Coronary Disease-Associated Artery/Lesion type: bypass graft [place] vs. transplanted heart: [place] heart Associated angina: with other forms of angina Qualified Code(s): I25.708 - Atherosclerosis of coronary artery bypass graft(s), unspecified, with other forms of angina pectoris Category: Medical Code(s): I25.10 - Atherosclerotic heart disease of [place] coronary artery without angina pectoris (5) History of mitral valve replacement Status: Acute Category: Surgical Code(s): Z95.2 - Presence of prosthetic heart valve (6) Thoracic aortic aneurysm Status: Acute Category: Medical Code(s): I71.2 - Thoracic aortic aneurysm, without rupture (7) Hypertension Status: Chronic Qualifiers: Hypertension type: primary hypertension Qualified Code(s): I10 - Essential (primary) hypertension Category: Medical Code(s): I10 - Essential (primary) hypertension (8) HLD (hyperlipidemia) Status: Chronic Qualifiers: Hyperlipidemia type: mixed hyperlipidemia Qualified Code(s): E78.2 - Mixed hyperlipidemia Category: Medical Code(s): E78.5 - Hyperlipidemia, unspecified (9) History of coronary artery bypass graft Status: Chronic Category: Surgical Code(s): Z95.1 - Presence of aortocoronary bypass graft (10) Tobacco use Status: Acute Category: Social Hx Code(s): Z72.0 - Tobacco use - Assessment and plan all Dx Assessment and Plan for all problems:: #Acute on Chronic hypoxic respiratory failure: #COPD exacerbation Current smoker greater than 95-dwaa-dnne smoking history. Carries a diagnosis COPD on Symbicort inhaler. Recently discharged from the hospital earlier this month after being managed for volume overload and COPD exacerbation. She does carry a history of CKD initiated on dialysis. Presented with worsening respiratory distress. Denies any cough or worsening productive and more subjective fevers or chills. Chest likely did not show any dense consolidation, questionable left retrocardiac opacity. Comment bilateral lower lobe chronic changes and evidence of prior granulomatous disease with calcified nodules. On examination patient appeared to be in mild respiratory distress. Decreased breath sounds in both lung miller. BiBasilar crackles Afebrile. No evidence of leukocytosis. Given bilateral decreased breath sounds and questionable left retrocardiac opacity will initiate patient on treatment for COPD exacerbation/pneumonia Patient respiratory status and auscultation significantly improved with tr
--- NOTE | 2021-11-23 15:31 | CARE MANAGER ---
Got a phone call from Asad Martin regarding dialysis chair and time for Ms. Brown, she will begin dialysis on 11/28/21 at the [facility] location, she will have a Saturday, , Saturday routine at 6:00 am. I spoke with the agent from [facility] her number is ext [phone]. All of this information was relayed to CIARA Pineda at [facility] and told Jo-Ann that transportation needed to be arranged for 11/28.
--- NOTE | 2021-11-24 13:46 | CARE MANAGER ---
Contacted Kristina at [facility] to follow up on patient after discharge. She states the patient is doing very well. They are aware of her dialysis appointment on Saturday and they have arranged for transportation. Denies any questions or concerns. OLVIN Cui
== END 2021-11-23 12:48 | DRG 291 ==
LOC: ER 22:21 → ICU 11-19 01:25
PROVIDERS: Internal Medicine; Nurse Practitioner Family; Admitting Provider Emergency Medicine; Emergency Provider Emergency Medicine; PCP Emergency Medicine; Visit Provider Emergency Medicine
PROC: 02H633Z Insertion of Infusion Device into Right Atrium, Percutaneous Approach (ICD-10-PCS; principal; 2021-11-21 13:00)
DX: I13.2 Hypertensive heart and chronic kidney disease with heart failure and with stage 5 chronic kidney disease, or end stage renal disease (principal); I50.33 Acute on chronic diastolic (congestive) heart failure; J96.21 Acute and chronic respiratory failure with hypoxia; N18.6 End stage renal disease; J44.9 Chronic obstructive pulmonary disease, unspecified; I25.10 Atherosclerotic heart disease of native coronary artery without angina pectoris; E78.5 Hyperlipidemia, unspecified; Z95.1 Presence of aortocoronary bypass graft; Z95.2 Presence of prosthetic heart valve; F17.210 Nicotine dependence, cigarettes, uncomplicated; M19.90 Unspecified osteoarthritis, unspecified site; I71.2 Thoracic aortic aneurysm, without rupture; F03.90 Unspecified dementia, unspecified severity, without behavioral disturbance, psychotic disturbance, mood disturbance, and anxiety
CPT/HCPCS: 36569; 36415; 51702; 71045; 80048; 80053; 80061; 81001; 82803; 83605; 83735; 83880; 84100; 84145; 84484; 85007; 85025; 85651; 86140; 86480; 86704; 86706; 87040; 87340; 87380; 93306; 94640; 94761; 97116; 97162; 97166; 97530; 99152; 99285; C1750; C9803; J1205; J1644; J1956; U0003; U0005

== ENCOUNTER 2021-11-25 16:29 | Emergency (ER) | payer MEDICAID, SELFPAY ==
[2021-11-25 16:15] VITALS: BP 123/78; PULSE 70; RESP 16; TEMP 36.7; O2SAT 93; BMI 27.4
--- NOTE | 2021-11-25 16:25 | PC.NURSE ---
ED MD at
--- NOTE | 2021-11-25 16:31 | PC.NURSE ---
LESTER RHOADES at changing gauze at port site
--- NOTE | 2021-11-25 16:34 | PC.NURSE ---
WILL RHOADES at
--- NOTE | 2021-11-25 16:42 | HMH.EDGENADL ---
ED Disposition Clinical Impression: Bleeding due to dialysis catheter placement Qualifiers: Encounter type: initial encounter Qualified Code(s): T82.838A - Hemorrhage due to vascular prosthetic devices, implants and grafts, initial encounter Disposition: Home, Self-Care Condition on Discharge: Good Additional Instructions: Call Dr. Archibald for any further problems regarding the catheter. Referrals: Lucio Irene MD [Primary Care Provider] - - Critical Care Critical Care Time: No Attestation: On 11/25/21, the high probability of a clinically significant, sudden or life threatening deterioration of the following system(s) required my full and direct attention, intervention and personal management. The time I documented below is in addition to time spent performing reported procedures but includes the following listed in this critical care notation. Medical Decision Making - Norris Inquiry Pt receiving controlled substance: No Vital Signs: 11/25/21 16:15 Temperature 98.0 F Temperature Source Oral Pulse Rate [Left Radial] 70 Respiratory Rate 16 Blood Pressure [Left Arm] 123/78 Blood Pressure Mean [Left Arm] 93 Blood Pressure Source [Left Arm] Automatic Cuff Blood Pressure Position [Left Arm] Sitting 02 Sat by Pulse Oximetry 93 L Oxygen Delivery Method Room Air - Physician Consults Physician Consulted: Cristela Time: 16:51 Reason -: Cardiology Eval/Care Comment/Response: Recommends 3 bandage of site, no other treatment needed at this time. - Reevaluation(s) Time: 16:48 Reevaluation #1: Tiny tinge of blood on the edge of the gauze that had been placed under the catheter at the site. No active bleeding otherwise. General Adult HPI - General Chief complaint: Skin/Abscess/Foreign Body Stated complaint: Port Problem Time Seen by Provider: 11/25/21 16:30 Mode of Arrival: EMS Limitations: No Limitations Description of Symptoms (Recalled from ER Triage Doc. by RN): Bleeding noted from incision site from dialysis catheter in R chest. Pt had dialysis catheter placed on 11/23/[address] Archibald. Pt denies any pain. Unknown of how or when bleedin started. Bleeding not profuse from area. - History of Present Illness HPI narrative: Brought in by ambulance from [facility]. She has been bleeding from a dialysis catheter in the right side of her chest. Catheter was placed at this hospital a couple of days ago. No other complaints. - Related Data Home Medications Medication Instructions Recorded Confirmed Melatonin 10 mg PO HS 01/04/21 11/18/21 atorvastatin 40 mg tablet 40 mg PO HS 06/12/21 11/18/21 famotidine 20 mg tablet 20 mg PO HS 06/12/21 11/18/21 hydralazine 100 mg tablet 100 mg PO TID 06/12/21 11/18/21 sodium bicarbonate 650 mg tablet 650 mg PO TID tab 06/12/21 11/18/21 trazodone 50 mg tablet 50 mg PO HS 06/12/21 11/18/21 Sevelamer Carbonate [Renvela] 800 mg PO TID 07/07/21 11/18/21 Aspirin [Aspirin 81mg EC Tab] 81 mg PO DAILY 11/18/21 11/18/21 Ferrous Sulfate [Ferrous Sulfate 325 mg PO DAILY 11/18/21 11/18/21 325mg Tablet] Isosorbide Mononitrate [Isosorbide 60 mg PO DAILY 11/18/21 11/18/21 Mononitrate ER] Multivitamin 1 each PO DAILY 11/18/21 11/18/21 carvediloL [Coreg 25mg Tablet] 12.5 mg PO BID 11/18/21 11/18/21 polyethylene glycoL 3350 [Miralax 17 gm PO DAILY 11/18/21 11/18/21 17gm Packet] Albuterol Sulfate [Albuterol 1 puff INHALATION Q6HP PRN 11/19/21 11/19/21 Sulfate Hfa] Budesonide/Formoterol Fumarate 21 puffs IH BID 11/19/21 11/19/21 [Symbicort 80-4.5 Mcg Inhaler] Cyanocobalamin (Vitamin B-12) 50 mcg PO DAILY 11/19/21 11/19/21 [Vitamin B-12] Previous Rx's Medication Instructions Recorded Budesonide [Pulmicort 0.5mg/2mL 0.5 mg IH BIDRT each 11/23/21 neb] Ipratropium/Albuterol Sulfate 3 ml IH Q4RT each 11/23/21 [Duoneb 3mL neb] Ipratropium/Albuterol Sulfate 3 ml IH Q6RT each 11/23/21 [Duoneb 3mL neb] Sertraline
--- NOTE | 2021-11-25 16:48 | INFXCTL.NOTE ---
has been paged.
--- NOTE | 2021-11-25 16:49 | PC.NURSE ---
on the phone with
--- NOTE | 2021-11-25 17:14 | PC.NURSE ---
[facility] called and said they have a city route driver to pick the patient up and they are on their way.
[2021-11-25 17:26] VITALS: BP 121/74; PULSE 74; RESP 16; TEMP 36.7; O2SAT 94
== END 2021-11-25 17:27 | disposition home or self-care (01) ==
PROVIDERS: Emergency Provider Emergency Medicine; PCP Emergency Medicine
DX: T82.838A Hemorrhage due to vascular prosthetic devices, implants and grafts, initial encounter (principal); D64.9 Anemia, unspecified; I11.0 Hypertensive heart disease with heart failure; I71.9 Aortic aneurysm of unspecified site, without rupture; I25.119 Atherosclerotic heart disease of native coronary artery with unspecified angina pectoris; N28.9 Disorder of kidney and ureter, unspecified; E78.5 Hyperlipidemia, unspecified; M19.90 Unspecified osteoarthritis, unspecified site; F17.210 Nicotine dependence, cigarettes, uncomplicated; Z79.51 Long term (current) use of inhaled steroids; Z79.82 Long term (current) use of aspirin; Z79.899 Other long term (current) drug therapy; Z95.1 Presence of aortocoronary bypass graft; Z95.2 Presence of prosthetic heart valve
CPT/HCPCS: 99282

== ENCOUNTER 2022-07-21 11:12 | Emergency (ER) | payer MEDICAID, SELFPAY ==
[2022-07-21] VITALS (7 sets, daily range): BP systolic 114–145; BP diastolic 66–91; PULSE 58–80; RESP 16–18; TEMP 36.8; O2SAT 90–95; BMI 28.1
--- NOTE | 2022-07-21 11:31 | XR_ITS ---
PROCEDURE INFORMATION: Exam: XR Chest Exam date and time: 07/21/2022 11:49 AM Age: 57 years old Clinical indication: Shortness of breath; Additional info: SOA, cough TECHNIQUE: Imaging protocol: Radiologic exam of the chest. Views: 1 view. COMPARISON: CR XR CHEST PORTABLE 11/21/2021 8:45 AM FINDINGS: Tubes, catheters and devices: Catheter tip projected over superior vena cava. Lungs: No consolidation. 1.0 cm rounded density in right upper lung zone, although present on prior study from September 2021. Pleural spaces: Tiny left pleural effusion. Heart/Mediastinum: Unremarkable. No cardiomegaly. Bones/joints: Visualized osseous structures grossly unremarkable for acute findings. Soft tissues: Postsurgical changes of chest. IMPRESSION: 1. Tiny left pleural effusion versus pleural pleural thickening 2. Rounded density in right upper lung zone. Although possibly artifactual from vessel. Can not exclude nodule. Consider nonemergent outpatient CT scan for further imaging evaluation, as clinically indicated.
[2022-07-21 11:34] LABS: Coronavirus 19, PCR Not Detected (NotDetected); Influenza A, PCR Not Detected (NotDetected); Influenza B, PCR Not Detected (NotDetected)
[2022-07-21 11:38] LABS: Basophils # 0.1 K/mm3 (0-0.2); Basophils % 1.3 % (0.1-2.0); Eosinophils # 0.2 K/mm3 (0.0-0.4); Eosinophils % 2.5 % (0.1-12.0); Hematocrit 35.4 % (37.0-47.0); Hemoglobin 11.6 g/dL (12.2-16.2); Lymphocytes # 1.1 K/mm3 (0.7-4.5); Lymphocytes % 16.6 % (10-50); Mean Corpuscular HGB Conc 32.8 g/dL (31.8-35.4); Mean Corpuscular Volume 91.5 fl (81-99); Mean Platelet Volume 8.8 fl (7.4-10.4); Monocytes # 0.5 K/mm3 (0.1-1.0); Monocytes % 7.6 % (1.7-9.3); Neutrophils # 4.8 K/mm3 (1.8-7.8); Neutrophils % 71.9 % (37.0-80.0); Platelet Count 194 K/mm3 (142-424); Red Blood Count 3.87 M/mm3 (4.20-5.40); Red Cell Distribution Width 14.4 % (11.5-17.5); White Blood Count 6.7 K/mm3 (4.8-10.8)
[2022-07-21 11:41] LABS: Chloride 100 mmol/L (98-107); Potassium 3.8 mmoL/L (3.5-5.1); Sodium 140 mmol/L (136-145)
[2022-07-21 11:43] LABS: Blood Urea Nitrogen 27 mg/dl (7-17); Creatinine Clearance Estimated 13 mL/min (50-200); Estimated Glomerular Filt Rate 8 ml/min (>60); GFR (African American) 10 ML/MIN (>60)
--- NOTE | 2022-07-21 11:43 | HMH.EDGENADL ---
Discharge Plan Disposition Patient Disposition: Home, Self-Care Condition: Fair Prescriptions Prescriptions: New azithromycin 500 mg tablet 500 mg PO DAILY 3 Days Qty: 3 0RF No Action hydralazine 100 mg tablet 100 mg PO TID famotidine 20 mg tablet 20 mg PO HS trazodone 50 mg tablet 50 mg PO HS sodium bicarbonate 650 mg tablet 650 mg PO TID atorvastatin [Lipitor] 40 mg tablet 40 mg PO HS gabapentin 100 mg capsule 100 mg PO DAILY Qty: 30 2RF oxycodone 5 mg tablet 5 mg PO Q6H PRN (Reason: pain) Qty: 120 0RF melatonin 10 MG tablet 10 mg PO HS sevelamer carbonate 800 MG tablet 800 mg PO TID carvedilol 25 MG tablet 12.5 mg PO BID multivitamin 1 EACH tablet 1 each PO DAILY polyethylene glycol 3350 17 GM powder in packet 17 gm PO DAILY aspirin 81 MG tablet,delayed release (DR/EC) 81 mg PO DAILY isosorbide mononitrate 60 MG tablet extended release 24 hr 60 mg PO DAILY ferrous sulfate 325 MG tablet 325 mg PO DAILY albuterol sulfate 8.5 GM HFA aerosol inhaler 1 puff INHALATION Q6HP PRN (Reason: SOA) budesonide-formoterol 10.2 GM HFA aerosol inhaler 21 puffs IH BID cyanocobalamin (vitamin B-12) 50 MCG tablet 50 mcg PO DAILY ipratropium-albuterol 3 ML solution for nebulization 3 ml IH Q6RT 0RF ipratropium-albuterol 3 ML solution for nebulization 3 ml IH Q4RT 0RF torsemide 20 MG tablet 100 mg PO DAILY 0RF sertraline 100 MG tablet 100 mg PO DAILY 0RF budesonide 0.5 MG/2 ML suspension for nebulization 0.5 mg IH BIDRT 0RF Referrals Follow up/Referrals: Lucio Irene MD [Primary Care Provider] - See instructions Clinical Impressions Clinical Impression: Acute exacerbation of chronic obstructive airways disease Discharge ED Provider: Rob Almanza General Adult HPI General Chief complaint: Shortness of Breath/Dyspnea Stated complaint: SOA Time Seen by Provider: 07/21/22 11:18 Mode of Arrival: EMS Source of Information: Patient Limitations: No Limitations Description of Symptoms (Recalled from ER Triage Doc. by RN): pt reports SOA and dry cough that began yesterday. Pt reports hx of COPD. Pt is a 3 times weekly dialysis pt, states her appt for today was cancelled for today by the dialysis clinic. No swelling noted in BLE or abd. History of Present Illness HPI narrative: This is a 57-year-old female with history of CKD 4 (on Saturday dialysis, still urinates 4-5 times a day), COPD (still smoking), CAD, SD status post CABG, CHF, hyperlipidemia, hypertension, presenting with shortness of breath. Patient states that she has been progressively short of breath over the past 2 days. Last received dialysis on , 2 days prior to arrival, but dialysis got canceled today due to the holiday. Shortness of breath is associated with exertion as well as a cough productive of clear/white sputum. Patient has no PND, orthopnea, lower extremity swelling, decreased urine output, chest pain, abdominal pain, nausea, vomiting, fevers, dysuria, hematuria, constipation, diarrhea, or any other concerning history. Related Data Home Medications Medication Instructions Recorded Confirmed melatonin 10 mg tablet 10 mg PO HS Insomnia 01/04/21 02/07/22 atorvastatin 40 mg tablet (Lipitor) 40 mg PO HS Cholesterol 06/12/21 02/07/22 famotidine 20 mg tablet 20 mg PO HS GERD 06/12/21 02/07/22 hydralazine 100 mg tablet 100 mg PO TID Hypertension 06/12/21 02/07/22 sodium bicarbonate 650 mg tablet 650 mg PO TID Supplement 06/12/21 02/07/22 trazodone 50 mg tablet 50 mg PO HS SLEEP 06/12/21 02/07/22 sevelamer carbonate 800 mg tablet 800 mg PO TID HYPERPHOSPHATEMIA 07/07/21 02/07/22 aspirin 81 mg tablet,delayed 81 mg PO DAILY Blood thinner 11/18/21 02/07/22 release carvedilol 25 mg tablet 12.5 mg PO BID HEART RATE 11/18/21 02/07/22 ferrous sulfate 325 mg (65 mg 325 mg PO JOSÉ
[2022-07-21 11:44] LABS: Alanine Aminotransferase 15 U/L (12-78); Albumin Level 4.2 g/dl (3.5-5.0); Albumin/Globulin Ratio 1.4 (1.1-1.8); Alkaline Phosphatase 76 U/L (38-126); Anion Gap 12.8 mEq/L (5-15); Aspartate Amino Transferase 28 U/L (14-36); Bilirubin,Total 0.7 mg/dl (0.2-1.3); Calcium 9.8 mg/dl (8.4-10.2); Carbon Dioxide 31 mmol/L (22.0-30.0); Globulin 3.1 g/dL (1.3-3.2); Glucose 94 mg/dl (74-100); Total Protein,Serum 7.3 g/dl (6.3-8.2)
--- NOTE | 2022-07-21 11:56 | PC.NURSE ---
WILL RHOADES speaking with See
--- NOTE | 2022-07-21 11:57 | PC.NURSE ---
RT at BS
--- NOTE | 2022-07-21 11:57 | PC.NURSE ---
1151 CRITICAL CREATININE 5.5 RECEIVED FROM [facility] IN LAB, PT NAME AND R/V. DR. ORTIZ NOTIFIED
[2022-07-21 12:06] LABS: Troponin I 0.02 ng/ml (0.00-0.034)
[2022-07-21 12:28] LABS: ABG Base Excess 2.2 mmol/L (-2.4-2.3); ABG HCO3 24.9 mmhg (22.0-26.0); ABG Oxygen Saturation 94 % (90-100); ABG PCO2 30.6 mmhg (35.0-45.0); ABG PH 7.53 mmol/L (7.35-7.45); ABG PO2 66.9 mmhg (80-100); ABG TCO2 25.9 mmhg (23-27)
[2022-07-21 12:30] LABS: Allen's Test Acceptable; Oxygen RA %; Source Right Radial
--- NOTE | 2022-07-21 12:36 | ECG_ITS ---
APPROVED REPORT Exam: Resting ECG HR:60 bpm ECG Measurements Heart Rate 60 AXES SD 151 P -90 QRSd 92 QRS 9 QT 469 T 106 QTc 471 Conclusion SINUS RHYTHM Left atrial abnormality Old inferior changes Late R wave progression ABNORMAL ECG UNCONFIRMED REPORT Electronically signed by : Duke Montez MD 07/23/2022 11:14:48
--- NOTE | 2022-07-21 14:25 | PC.NURSE ---
lunch tray ordered now
[2022-07-21 15:33] LABS: Troponin I 0.01 ng/ml (0.00-0.034)
--- NOTE | 2022-07-21 16:00 | PC.NURSE ---
notified staff at [facility] pt ready for d/c
--- NOTE | 2022-07-21 17:14 | PC.NURSE ---
[facility]. Ingris at [facility] states they do not have a superintendent drivers for pt but they are working on it.
--- NOTE | 2022-07-21 17:22 | PC.NURSE ---
checked on pt at this time, updated pt have ride coming for her. Pt states no needs at this time. Offered pt a supper tray, pt declined.
== END 2022-07-21 18:03 | disposition home or self-care (01) ==
PROVIDERS: Emergency Provider Emergency Medicine; PCP Emergency Medicine
DX: J44.1 Chronic obstructive pulmonary disease with (acute) exacerbation (principal); Z20.822 Contact with and (suspected) exposure to COVID-19; I13.0 Hypertensive heart and chronic kidney disease with heart failure and stage 1 through stage 4 chronic kidney disease, or unspecified chronic kidney disease; I50.9 Heart failure, unspecified; N18.4 Chronic kidney disease, stage 4 (severe); I25.10 Atherosclerotic heart disease of native coronary artery without angina pectoris; I71.40 Abdominal aortic aneurysm, without rupture, unspecified; I25.2 Old myocardial infarction; E78.5 Hyperlipidemia, unspecified; F17.210 Nicotine dependence, cigarettes, uncomplicated; Z79.51 Long term (current) use of inhaled steroids; Z79.82 Long term (current) use of aspirin; Z79.899 Other long term (current) drug therapy; Z95.4 Presence of other heart-valve replacement
CPT/HCPCS: 36415; 71045; 80053; 82803; 84484; 85025; 93005; 99284; C9803; U0003; U0005

== ENCOUNTER → 2023-02-06 11:15 | Outpatient (CLI) | payer BC, SELFPAY ==
--- NOTE | 2023-02-06 11:20 | CA_ITS ---
FINAL REPORT TECHNIQUE: Ultrasound images of the deep venous system were obtained from the left groin to the calf veins. CLINICAL HISTORY: Left lower extremity edema with bruising behind knee COMPARISON: None FINDINGS: The deep venous system is normally compressible. Normal flow is identified. IMPRESSION: No evidence of left lower extremity DVT. Reviewed, Interpreted and Dictated by Som Byrne III, MD Transcribed by Anuja Perea Authenticated and [facility]
== END ==
PROVIDERS: PCP Emergency Medicine; Visit Provider Emergency Medicine
DX: S80.12XA Contusion of left lower leg, initial encounter (principal)
CPT/HCPCS: 93971

== ENCOUNTER 2024-04-24 12:49 | Outpatient (CLI) | payer BC, SELFPAY ==
[2024-04-24 14:01] LABS: Calcium 9.4 mg/dl (8.4-10.2); Potassium 3.5 mmoL/L (3.5-5.1)
== END 2024-04-24 23:59 | disposition home or self-care (01) ==
LOC: LAB 12:51
PROVIDERS: Visit Provider Internal Medicine
DX: N18.6 End stage renal disease (principal)
CPT/HCPCS: 36415; 82310; 83036; 84132

== ENCOUNTER 2024-12-28 11:46 | Emergency (ER) | payer OTHER, SELFPAY ==
[2024-12-28] VITALS (8 sets, daily range): BP systolic 204–231; BP diastolic 115–134; PULSE 79–94; RESP 18–19; TEMP 36.6; O2SAT 85–99; BMI 25.6
--- NOTE | 2024-12-28 11:51 | ECG_ITS ---
APPROVED REPORT Exam: Resting ECG HR:91 bpm ECG Measurements Heart Rate 91 AXES MN 202 P 93 QRSd 96 QRS 51 QT 381 T 115 QTc 430 Conclusion SINUS RHYTHM SEPTAL MYOCARDIAL INFARCTION , OF INDETERMINATE AGE [40+ ms Q WAVE IN V1/V2] MODERATE T-WAVE ABNORMALITY, CONSIDER LATERAL ISCHEMIA [-0.1+ mV T-WAVE IN I/aVL/V5/V6] Artifact limits interpretation, no STEMI within the limits of exam Electronically signed by : CAROL HUNTER, 12/30/2024 02:21:21
--- NOTE | 2024-12-28 12:12 | XR_ITS ---
FINAL REPORT CLINICAL HISTORY: shortness of breath COMPARISON: 07/21/2022 FINDINGS: PA and lateral views of the chest were obtained. Sternotomy wires are present. Previously seen dual-lumen catheter has been removed. The heart is mildly enlarged. There has been interval worsening of bilateral interstitial opacities. Small bilateral pleural effusions are noted. Findings are favored represent mild CHF.. There is no pneumothorax. No acute osseous abnormality is identified. IMPRESSION: Interval worsening bilateral interstitial opacities. Small bilateral pleural effusions. Recommend follow-up. Reviewed, Interpreted and Dictated by Jyoti Stanley MD Transcribed by Anuja Perea Authenticated and [facility]
[2024-12-28 12:16] LABS: Basophils # 0.1 K/mm3 (0-0.2); Basophils % 0.9 % (0.1-2.0); Eosinophils # 0.1 Kmm3 (0.0-0.4); Eosinophils % 1.7 % (0.1-12.0); Hematocrit 33.3 % (37.0-47.0); Hemoglobin 10.7 g/dL (12.2-16.2); Immature Granulocytes # 0.02 10^3uL; Immature Granulocytes % 0.4 %; Lymphocytes # 0.5 K/mm3 (0.7-4.5); Lymphocytes % 9.5 % (10-50); Mean Corpuscular HGB Conc 32.1 g/dL (31.8-35.4); Mean Corpuscular Hemoglobin 27.6 pg (27.0-31.2); Mean Platelet Volume 9.8 fl (7.4-10.4); Monocytes # 0.4 K/mm3 (0.1-1.0); Monocytes % 7.8 % (1.7-9.3); Neutrophils # 4.2 K/mm3 (1.8-7.8); Neutrophils % 79.7 % (37.0-80.0); Nucleated Red Blood Cells # 0 10^3/uL; Nucleated Red Blood Cells % 0 %; Platelet Count 178 K/mm3 (142-424); Red Blood Count 3.87 M/mm3 (4.20-5.40); Red Cell Distribution Width 15.9 % (11.5-17.5); Red Cell Distribution Width-SD 49.8 fL; White Blood Count 5.3 K/mm3 (4.8-10.8)
[2024-12-28 12:18] LABS: MANUAL DIFFERENTIAL MANUAL DIFFERENTIAL (MANUAL DIFF)
[2024-12-28 12:21] LABS: Alanine Aminotransferase 14 U/L (12-78); Albumin Level 3.8 g/dl (3.5-5.0); Alkaline Phosphatase 110 U/L (38-126); Anion Gap 13.1 mEq/L (5-15); Aspartate Amino Transferase 23 U/L (14-36); Bilirubin,Total 0.6 mg/dl (0.2-1.3); Blood Urea Nitrogen 51 mg/dl (7-17); Calcium 9.1 mg/dl (8.4-10.2); Carbon Dioxide 21 mmol/L (22.0-30.0); Chloride 108 mmol/L (98-107); Estimated Glomerular Filt Rate 6 ml/min (>60); GFR (African American) 7 ML/MIN (>60); Globulin 3.7 g/dL (1.3-3.2); Glucose 91 mg/dl (74-100); Lipase 186 U/L (23-300); Magnesium 2.6 mg/dl (1.6-2.3); Potassium 4.1 mmoL/L (3.5-5.1); Sodium 138 mmol/L (136-145); Total Protein,Serum 7.5 g/dl (6.3-8.2)
--- NOTE | 2024-12-28 12:22 | [facility].EDCP ---
Discharge Plan Disposition Patient Disposition: Xfer Other Prescriptions Prescriptions: No Action hydralazine 100 mg tablet 100 mg PO TID famotidine 20 mg tablet 20 mg PO HS trazodone 50 mg tablet 50 mg PO HS sodium bicarbonate 650 mg tablet 650 mg PO TID atorvastatin [Lipitor] 40 mg tablet 40 mg PO HS gabapentin 300 mg capsule 300 mg PO HS Qty: 30 2RF oxycodone 5 mg tablet 5 mg PO Q6H PRN (Reason: pain) Qty: 120 0RF melatonin 10 MG tablet 10 mg PO HS sevelamer carbonate 800 MG tablet 800 mg PO TID carvedilol 25 MG tablet 12.5 mg PO BID multivitamin 1 EACH tablet 1 each PO DAILY polyethylene glycol 3350 17 GM powder in packet 17 g PO DAILY aspirin 81 MG tablet,delayed release (DR/EC) 81 mg PO DAILY isosorbide mononitrate 60 MG tablet extended release 24 hr 60 mg PO DAILY ferrous sulfate 325 MG tablet 325 mg PO DAILY albuterol sulfate 8.5 GM HFA aerosol inhaler 1 puff INHALATION Q6HP PRN (Reason: SOA) budesonide-formoterol 10.2 GM HFA aerosol inhaler 21 puffs IH BID cyanocobalamin (vitamin B-12) 50 MCG tablet 50 mcg PO DAILY ipratropium-albuterol 3 ML solution for nebulization 3 ml IH Q6RT 0RF torsemide 20 MG tablet 100 mg PO DAILY 0RF sertraline 100 MG tablet 100 mg PO DAILY 0RF budesonide 0.5 MG/2 ML suspension for nebulization 0.5 mg IH BIDRT 0RF Referrals Follow up/Referrals: Provider,Referral, [Primary Care Provider, Medical] - See instructions Clinical Impressions Clinical Impression: Hypertensive emergency, Congestive heart failure Print Language Print Language: Citizen Of [place] Discharge ED Provider: James Stone [facility] <James Stone MD - Last Filed: 12/28/24 14:27> General Chief Complaint: Shortness of Breath/Dyspnea Stated Complaint: SOB Time Seen by Provider: 12/28/24 11:59 Related Data Home Medications ?Medication ?Instructions ?Recorded ?Confirmed melatonin 10 mg tablet 10 mg PO HS Insomnia 01/04/21 11/05/22 atorvastatin 40 mg tablet (Lipitor) 40 mg PO HS Cholesterol 06/12/21 11/05/22 famotidine 20 mg tablet 20 mg PO HS GERD 06/12/21 11/05/22 hydralazine 100 mg tablet 100 mg PO TID Hypertension 06/12/21 11/05/22 sodium bicarbonate 650 mg tablet 650 mg PO TID Supplement 06/12/21 11/05/22 trazodone 50 mg tablet 50 mg PO HS SLEEP 06/12/21 11/05/22 sevelamer carbonate 800 mg tablet 800 mg PO TID HYPERPHOSPHATEMIA 07/07/21 11/05/22 aspirin 81 mg tablet,delayed 81 mg PO DAILY Blood thinner 11/18/21 11/05/22 release carvedilol 25 mg tablet 12.5 mg PO BID HEART RATE 11/18/21 11/05/22 ferrous sulfate 325 mg (65 mg 325 mg PO DAILY Supplement 11/18/21 11/05/22 iron) tablet isosorbide mononitrate 60 mg 60 mg PO DAILY Chest pain 11/18/21 11/05/22 tablet,extended release 24 hr multivitamin 1 each PO DAILY Supplement 11/18/21 11/05/22 polyethylene glycol 3350 17 gram 17 g PO DAILY CONSTIPATION 11/18/21 11/05/22 oral powder packet albuterol sulfate 90 mcg/actuation 1 puff inhalation Q6HP PRN SOA 11/19/21 11/05/22 aerosol inhaler budesonide-formoterol HFA 80 21 puffs inhalation BID COPD 11/19/21 11/05/22 mcg-4.5 mcg/actuation aerosol inhaler cyanocobalamin (vitamin B-12) 50 50 mcg PO DAILY Supplement 11/19/21 11/05/22 mcg tablet Previous Rx's ?Medication ?Instructions ?Recorded budesonide 0.5 mg/2 mL suspension 0.5 mg (2 mL) inhalation BIDRT 11/23/21 for nebulization ipratropium 0.5 mg-albuterol 3 mg 3 ml inhalation Q6RT 11/23/21 (2.5 mg base)/3 mL nebulization soln sertraline 100 mg tablet 100 mg PO DAILY 11/23/21 torsemide 20 mg tablet 100 mg (5 x 20 mg) PO DAILY 11/23/21 gabapentin 300 mg capsule 300 mg PO HS #30 caps 04/10/23 oxycodone 5 mg tablet 5 mg PO Q6H PRN pain #120 tabs 05/06/23 Allergies Allergy/AdvReac Type Severity Reaction Status Date / Time No Known Allergies Allergy Verified 11/05/22 09:23 <Albina Galvan (ED), [employer] - Last Filed: 12/28/24 14:04> History of Present Illness HPI narrative: This is a 59-year-old female who presents to the ED today for complaint of bilateral lower extremity edema left worse than right. She says this has been going on for 2 days. She also states that she is short of breath and has back pain. She does have history of CHF, COPD, hypertension, end-stage renal disease and is on dialysis. She is supposed to be on dialysis 3 days a week she has not had dialysis since April. She states that if [facility] cannot pick her up any longer so she cannot get dialysis. She is not on any fluid pills due to her kidney disease. She does have her fistula in her left upper extremity. She does still urinate. She cannot remember the name of her physicians. She denies any chest pain but does have back pain. [facility] <James Stone MD - Last Filed: 12/28/24 14:27> [facility] Disclaimer: The information contained in this section may have been updated after the patient was seen, as this information can be updated by other users. Medical History (Updated 12/28/24 @ 13:56 by Albina Galvan (ED), [employer]) Typical angina Ascending aortic aneurysm Bilateral carotid bruits Surgical History Aortic valve replaced Social History Smoking Status: Current every day smoker tobacco type: cigarettes packs per day: 1 alcohol intake: never current occupational status: disabled Travel in the last 8 weeks?: Inside the [place] household members: children caffeine: Yes Have you lived/traveled outside [place] in past 30 days?: No Contact w/someone who lives/traveled outside US past 30 days?: No Exposure to someone with infectious disease in past 14 days?: No Do you have a fever (greater than 100.4 F or 38 C)?: No Have you tested positive for COVID-19?: No Exposed to someone with COVID-19 in past 14 days?: No Do you have a sore throat?: No Do you have a cough?: No Do you have any weakness?: No Do you have any diarrhea?: No Are you experiencing any unusual bleeding?: No Do you have any muscle aches/pain?: No Do you have any abdominal pain?: No Are you experiencing loss of taste or smell?: No Other Medical History Have you received the Flu Vaccine for this season: No Have you received the Pneumonia Vaccine: No <Albina Galvan (ED), [employer]PER[employer] - Last Filed: 12/28/24 14:04> ROS Obtained: Yes Systems reviewed as appropriate & no additional complaints except as documented Constitutional Constitutional: Reports as per HPI Physical Exam <Albina Galvan (ED), [employer] SUPER[employer]OR - Last Filed: 12/28/24 14:04> General General appearance: alert and in no apparent distress Head Head exam: atraumatic and normocephalic Eye Eye exam: Present normal appearance, PERRL and EOMI ENT ENT exam: Present normal exam, normal oropharynx and mucous membranes moist Neck Neck exam: Present normal inspection, full ROM and trachea midline Respiratory Respiratory exam: Present wheezes Cardiovascular Cardiovascular exam: Present normal rhythm, systolic murmur, +S1 and +S2 Abdominal Exam Abdominal exam: Present soft and normal bowel sounds Extremities Exam Extremities exam: Present full ROM, tenderness, normal capillary refill and edema (3-4+ edema in bilateral lower extremities) Neurological Exam Neurological exam: Present alert and oriented X3 Skin Skin exam: Present warm, dry and intact HEART Score <James Stone MD - Last Filed: 12/28/24 14:27> HEART Score History (anamnesis): Slightly suspicious ECG: Non-specific disturbance Age: 45-65 years Risk factors: Atherosclerosis history Troponin: 1-3x normal limit HEART Score: 5 <Albina Galvan (ED), [employer] SUPER[employer]OR - Last Filed: 12/28/24 14:04> HEART Score HEART Score assessment performed?: Yes HEART Score: 5 Critical Care <Albina Galvan (ED), [employer] SUPER[employer]OR - Last Filed: 12/28/24 14:04> Critical Care Time Critical Care Time: No Medical Decision Making <James Stone MD - Last Filed: 12/28/24 14:27> Vital Signs Vital Signs: 12/28/24 11:51 12/28/24 12:00 12/28/24 12:07 Temperature 97.9 F Temperature Source Oral Pulse Rate 92 H 86 Pulse Rate [Left Radial] 84 Respiratory Rate 18 Blood Pressure 215/125 H 231/132 H Blood Pressure [Right Arm] 215/120 H Blood Pressure Mean [Right Arm] 151 Blood Pressure Source [Right Arm] Automatic Cuff Blood Pressure Position [Right Arm] Sitting 02 Sat by Pulse Oximetry 93 L 93 L 98 Oxygen Delivery Method Nasal Cannula Oxygen Flow Rate (LPM) 3 12/28/24 12:30 12/28/24 12:55 12/28/24 13:01 Temperature Temperature Source Pulse Rate 81 94 H 83 Pulse Rate [Left Radial] Respiratory Rate Blood Pressure 230/129 H 204/115 H 217/121 H Blood Pressure [Right Arm] Blood Pressure Mean [Right Arm] Blood Pressure Source [Right Arm] Blood Pressure Position [Right Arm] 02 Sat by Pulse Oximetry 90 L 85 L 99 Oxygen Delivery Method Oxygen Flow Rate (LPM) 12/28/24 13:13 Temperature Temperature Source Pulse Rate 79 Pulse Rate [Left Radial] Respiratory Rate Blood Pressure 228/134 H Blood Pressure [Right Arm] Blood Pressure Mean [Right Arm] Blood Pressure Source [Right Arm] Blood Pressure Position [Right Arm] 02 Sat by Pulse Oximetry 99 Oxygen Delivery Method Oxygen Flow Rate (LPM) Lab Data Labs: Lab Results 12/28/24 11:51: WBC 5.3, RBC 3.87 L, Hgb 10.7 L, Hct 33.3 L, MCV 86.0, MCH 27.6, MCHC 32.1, RDW 15.9, Plt Count 178, MPV 9.8, Neut % (Auto) 79.7, Lymph % (Auto) 9.5 L, [place] % (Auto) 7.8, Eos % (Auto) 1.7, Baso % (Auto) 0.9, Neut # (Auto) 4.2, Lymph # (Auto) 0.5 L, [place] # (Auto) 0.4, Eos # (Auto) 0.1, Baso # (Auto) 0.1, Total Counted 100, Neutrophils % (Manual) 77 H, Lymphocytes % (Manual) 16, Monocytes % (Manual) 5, Eosinophils % (Manual) 2, Platelet Estimate Normal, RBC Morphology Normal, PT 11.7, INR 1.06, D-Dimer 1.02 H, Sodium 138, Potassium 4.1, Chloride 108 H, Carbon Dioxide 21 L, Anion Gap 13.1, BUN 51 H, Creatinine 7.00 H, Estimated GFR 6 L*, Est GFR ( Amer) 7 L*, Glucose 91, Calcium 9.1, Magnesium 2.6 H, Total Bilirubin 0.6, AST 23, ALT 14, Alkaline Phosphatase 110, Troponin I 0.08 H, NT-Pro-B Natriuret Pep 14305 H, Total Protein 7.5, Albumin 3.8, Globulin 3.7 H, Albumin/Globulin Ratio 1.0 L, Lipase 186 12/28/24 13:02: VBG pH 7.30 L, VBG pCO2 38.0, VBG pO2 37.1, VBG HCO3 18.3 L, VBG Total CO2 19.4 L, VBG O2 Saturation 67.2, VBG Base Excess -8.1 L, VBG Lactic Acid 1.3 12/28/24 11:51 12/28/24 11:51 Response Orders (Tests/Meds): ED MEDICATIONS Discontinued Medications Generic Name Dose Route Start Last Admin Trade Name Freq PRN Reason Stop Dose Admin Morphine Sulfate 4 mg 12/28/24 14:00 Morphine 4mg/Ml Syringe IV 12/28/24 14:01 ONCE ONE ORDERS Category Date Time Status Chest XR 2 view (NOT portable) [XR chest 2V] Stat Exams 12/28/24 12:12 Taken BNP [NT Pro Brain Natriuretic Pep.] Stat Lab 12/28/24 11:51 Completed CBC [Complete Blood Count Auto Diff] Stat Lab 12/28/24 11:51 Completed Comprehensive Metabolic Panel Stat Lab 12/28/24 11:51 Completed D-Dimer Stat Lab 12/28/24 11:51 Completed Lactate Venous Stat Lab 12/28/24 12:08 Ordered Lipase Stat Lab 12/28/24 11:51 Completed Magnesium Stat Lab 12/28/24 11:51 Completed PT INR [Prothrombin Time INR] Stat Lab 12/28/24 11:51 Completed Trop I [Troponin I] Stat Lab 12/28/24 11:51 Completed Troponin I Q3H Lab 12/28/24 15:15 Ordered Troponin I Q3H Lab 12/28/24 18:15 Ordered Urinalysis and Microscopic Stat Lab 12/28/24 12:08 Ordered Venous Blood Gas Stat RT 12/28/24 13:02 Completed ECG Data Tracing #1: ECG Narrative: Independently interpreted by me rate is 91, rhythm is regular, axis normal, no ST elevation in anatomical contiguous leads, QTc 430. MDM Narrative Medical Decision Narrative: patient is a 59-year-old female presenting to the emergency department for evaluation of bilateral lower extremity edema and shortness of breath. Patient has not had dialysis since April 2024.. Patient is arrives with blood pressure 200s over 100s with edema in bilateral lower extremities left worse than right.. Differential diagnosis includes CHF exacerbation, COPD exacerbation, end-stage renal disease among others. Workup will be conducted with hematologic labs, specific imaging, provocative tests. Initial inventions include oxygen, labs. Initial workup reviewed by me hematologic labs are remarkable for CHF exacerbation, end-stage renal disease with BUN 51 creatinine of 7. BNP 47,000. Imaging informally interpreted by me and remarkable for vascular congestion. Please see radiology report for formal imaging. Discussed with Dr. Stone and we will be sending patient to [facility] for dialysis. I talked to Dr. Vasquez who accepted patient. Talk to Dr. Eric he excepted patient to [facility]. Patient also aware. I was consulted by the DANIELA, and we discussed the complexity of the problems being addressed. I approved the treatment and management plan for this patient's care in the emergency department, thus performing a substantive portion of the medical decision making. Patient has missed dialysis for multiple months has volume overload on oxygen and severe hypertension which requires emergent dialysis. Fistula has at home and is likely to be viable. Patient was transferred in stable condition. James Stone MD <Albina Galvan (ED), [employer]ICING SUPERVISOR - Last Filed: 12/28/24 14:04> Norris Inquiry Pt receiving controlled substance: No Norris was queried for this patient: No Vital Signs Vital Signs: 12/28/24 11:51 12/28/24 12:00 12/28/24 12:07 Temperature 97.9 F Temperature Source Oral Pulse Rate 92 H 86 Pulse Rate [Left Radial] 84 Respiratory Rate 18 Blood Pressure 215/125 H 231/132 H Blood Pressure [Right Arm] 215/120 H Blood Pressure Mean [Right Arm] 151 Blood Pressure Source [Right Arm] Automatic Cuff Blood Pressure Position [Right Arm] Sitting 02 Sat by Pulse Oximetry 93 L 93 L 98 Oxygen Delivery Method Nasal Cannula Oxygen Flow Rate (LPM) 3 12/28/24 12:30 12/28/24 12:55 12/28/24 13:01 Temperature Temperature Source Pulse Rate 81 94 H 83 Pulse Rate [Left Radial] Respiratory Rate Blood Pressure 230/129 H 204/115 H 217/121 H Blood Pressure [Right Arm] Blood Pressure Mean [Right Arm] Blood Pressure Source [Right Arm] Blood Pressure Position [Right Arm] 02 Sat by Pulse Oximetry 90 L 85 L 99 Oxygen Delivery Method Oxygen Flow Rate (LPM) 12/28/24 13:13 Temperature Temperature Source Pulse Rate 79 Pulse Rate [Left Radial] Respiratory Rate Blood Pressure 228/134 H Blood Pressure [Right Arm] Blood Pressure Mean [Right Arm] Blood Pressure Source [Right Arm] Blood Pressure Position [Right Arm] 02 Sat by Pulse Oximetry 99 Oxygen Delivery Method Oxygen Flow Rate (LPM) Lab Data Labs: Lab Results 12/28/24 11:51: WBC 5.3, RBC 3.87 L, Hgb 10.7 L, Hct 33.3 L, MCV 86.0, MCH 27.6, MCHC 32.1, RDW 15.9, Plt Count 178, MPV 9.8, Neut % (Auto) 79.7, Lymph % (Auto) 9.5 L, [place] % (Auto) 7.8, Eos % (Auto) 1.7, Baso % (Auto) 0.9, Neut # (Auto) 4.2, Lymph # (Auto) 0.5 L, [place] # (Auto) 0.4, Eos # (Auto) 0.1, Baso # (Auto) 0.1, Total Counted 100, Neutrophils % (Manual) 77 H, Lymphocytes % (Manual) 16, Monocytes % (Manual) 5, Eosinophils % (Manual) 2, Platelet Estimate Normal, RBC Morphology Normal, PT 11.7, INR 1.06, D-Dimer 1.02 H, Sodium 138, Potassium 4.1, Chloride 108 H, Carbon Dioxide 21 L, Anion Gap 13.1, BUN 51 H, Creatinine 7.00 H, Estimated GFR 6 L*, Est GFR ( Amer) 7 L*, Glucose 91, Calcium 9.1, Magnesium 2.6 H, Total Bilirubin 0.6, AST 23, ALT 14, Alkaline Phosphatase 110, Troponin I 0.08 H, NT-Pro-B Natriuret Pep 14233 H, Total Protein 7.5, Albumin 3.8, Globulin 3.7 H, Albumin/Globulin Ratio 1.0 L, Lipase 186 12/28/24 13:02: VBG pH 7.30 L, VBG pCO2 38.0, VBG pO2 37.1, VBG HCO3 18.3 L, VBG Total CO2 19.4 L, VBG O2 Saturation 67.2, VBG Base Excess -8.1 L, VBG Lactic Acid 1.3 Response Orders (Tests/Meds): ED MEDICATIONS Discontinued Medications Generic Name Dose Route Start Last Admin Trade Name Freq PRN Reason Stop Dose Admin Morphine Sulfate 4 mg 12/28/24 14:00 Morphine 4mg/Ml Syringe IV 12/28/24 14:01 ONCE ONE ORDERS Category Date Time Status Chest XR 2 view (NOT portable) [XR chest 2V] Stat Exams 12/28/24 12:12 Taken BNP [NT Pro Brain Natriuretic Pep.] Stat Lab 12/28/24 11:51 Completed CBC [Complete Blood Count Auto Diff] Stat Lab 12/28/24 11:51 Completed Comprehensive Metabolic Panel Stat Lab 12/28/24 11:51 Completed D-Dimer Stat Lab 12/28/24 11:51 Completed Lactate Venous Stat Lab 12/28/24 12:08 Ordered Lipase Stat Lab 12/28/24 11:51 Completed Magnesium Stat Lab 12/28/24 11:51 Completed PT INR [Prothrombin Time INR] Stat Lab 12/28/24 11:51 Completed Trop I [Troponin I] Stat Lab 12/28/24 11:51 Completed Troponin I Q3H Lab 12/28/24 15:15 Ordered Troponin I Q3H Lab 12/28/24 18:15 Ordered Urinalysis and Microscopic Stat Lab 12/28/24 12:08 Ordered Venous Blood Gas Stat RT 12/28/24 13:02 Completed MDM Narrative Medical Decision Narrative: patient is a 59-year-old female presenting to the emergency department for evaluation of bilateral lower extremity edema and shortness of breath. Patient has not had dialysis since April 2024.. Patient is arrives with blood pressure 200s over 100s with edema in bilateral lower extremities left worse than right.. Differential diagnosis includes CHF exacerbation, COPD exacerbation, end-stage renal disease among others. Workup will be conducted with hematologic labs, specific imaging, provocative tests. Initial inventions include oxygen, labs. Initial workup reviewed by me hematologic labs are remarkable for CHF exacerbation, end-stage renal disease with BUN 51 creatinine of 7. BNP 47,000. Imaging informally interpreted by me and remarkable for vascular congestion. Please see radiology report for formal imaging. Discussed with Dr. Stone and we will be sending patient to [facility] for dialysis. I talked to Dr. Vasquez who accepted patient. Talk to Dr. Eric he excepted patient to [facility]. Patient also aware.
[2024-12-28 12:23] LABS: INR 1.06 (0.9-1.1); Prothrombin Time 11.7 seconds (10.1-12.5)
[2024-12-28 12:32] LABS: Troponin I 0.08 ng/ml (0.00-0.034)
[2024-12-28 12:44] LABS: Eosinophils % 2 % (0-3); Lymphocytes % 16 % (10-50); Monocytes % 5 % (2-9); Neutrophils % 77 % (42-76); Platelet Estimate Normal; RBC Morphology Normal; Total Cells Counted 100
[2024-12-28 12:46] LABS: D-Dimer 1.02 ug/mL (0.0-0.5)
[2024-12-28 12:53] LABS: NT Pro Brain Natriuretic Pep. 47000 pg/mL (0-125)
--- NOTE | 2024-12-28 13:04 | PC.NURSE ---
Ramona Conrad called lab and respiratory to notify them that a VBG was sent.
[2024-12-28 13:08] LABS: Lactate Venous 1.3 mmol/L (0.4-2.0); VBG Base Excess -8.1 mmol/L (-2.4-2.3); VBG HCO3 18.3 mmol/L (23-30); VBG Oxygen Saturation 67.2 % (50-70); VBG PO2 37.1 mmol/L (28-40); VBG Total CO2 19.4 mmol/L (23-27)
--- NOTE | 2024-12-28 13:57 | PC.NURSE ---
transfer service requested face sheet to be faxed to clubhouse manager. will call back when they have bed a signed
[2024-12-28] MEDS: MORPHINE 4MG/ML SYRINGE 4 MG IV (14:34)
[2024-12-28] MEDS: ONDANSETRON 4MG/2ML VIAL 4 MG IV (14:47)
== END 2024-12-28 14:58 | disposition other institution (70) ==
PROVIDERS: Nurse Practitioner; Emergency Provider Emergency Medicine
DX: I16.1 Hypertensive emergency (principal); I50.9 Heart failure, unspecified; R06.02 Shortness of breath; N18.6 End stage renal disease; I12.0 Hypertensive chronic kidney disease with stage 5 chronic kidney disease or end stage renal disease; Z99.2 Dependence on renal dialysis; J44.9 Chronic obstructive pulmonary disease, unspecified; Z87.891 Personal history of nicotine dependence
CPT/HCPCS: 71046; 80053; 82803; 83690; 83735; 83880; 84484; 85007; 85025; 85027; 85378; 85610; 93005; 96374; 96375; 99285; J2270; J2405

== ENCOUNTER 2025-02-01 10:58 | Emergency (ER) | payer OTHER, SELFPAY ==
--- OUTSIDE RECORDS SUMMARY | 2025-01-04 16:04 | XMS_ITS | Continuity of Care Document ---
Author Organization [facility] Phone Care Team Providers Care Hot Metal Crane Operator Name Role Phone ELLIS SAGASTUME Unavailable BROCK ALLEN Admitting BROCK ALLEN Primary Attending BROCK ALLEN Unavailable NO, DEFINED P Primary Care Unavailable CHRISTIANE ESCALONA Unavailable Unavailable BROCK ALLEN Surgeon ALLERGIES AND ADVERSE REACTIONS ALLERGIES AND ADVERSE REACTIONS Code System Allergy Substance Adverse Reaction Date Reaction (Severity) Comment Status Reported By Updated By No Known Allergies [email or web address] on December 28, 2024 8:31:32 PM UTC ASSESSMENTS Hypervolemia ; FAMILY HISTORY RELATION: Father Status: Cause of : Unknown Age at : Unknown SNOMED-CT Diagnosis Age At Onset Information not available RELATION: Mother Status: LIVING SNOMED-CT Diagnosis Age At Onset Information not available PROBLEMS PATIENT PROBLEMS Code Description/Comments Category Status Upda drew By [id number] Hypervolemia active [id number] on J 2024 7:54:38 PM UTC RESULTS Patient: ZAHEER Fletcher Date of : 1965 2 LABORATORY RESULTS ORDER 300: CBC AUTO W DIFF ( LOINC: 01754-2) ORDER DATE: December 28, 2024 7:53:00 PM UTC Specimen Source: EDTA Specimen Type: Blood specime n with EDTA PERFORMING LAB: [address] [id number] Result Comment: Final Result Date: December 28, 2024 9:07:00 PM UTC (TECH: ADB) LOINC TEST FLAG RESULT REFERENCE RANGE UPDA DREW BY 6690-2 Leukocytes [#/volume] in Blood by Automated count N 5.6 K/ul 4.0 K/ul - 10.5 K/ul December 28, 2024 9:07:00 PM UTC (TECH: ADB) 789-8 Erythrocytes [#/volume] in Blood by Automated count L 3.8 M/mm3 4.2 M/mm3 - 6.4 M/mm3 December 28, 2024 9:07:00 PM UTC (TECH: ADB) 718-7 Hemoglobin [Mass/volume] in Blood L 10.2 gm/dl 12.5 gm/dl - 16.0 gm/dl December 28, 2024 9:07:00 PM UTC (TECH: ADB) 11334-8 Hematocrit [Volume Fraction] of Blood L 32.8 % 37.0 % - 47.0 % December 28, 2024 9:07:00 PM UTC (TECH: ADB) 787-2 Erythrocyte mean corpuscular volume [Entitic volume] by Automated count N 86.8 fl 78 fl - 100 fl December 28, 2024 9:07:00 PM UTC (TECH: ADB) 785-6 Erythrocyte mean corpuscular hemoglobin [Entitic mass] by Automated count N 27.0 pg 27 pg - 31 pg December 28, 2024 9:07:00 PM UTC (TECH: ADB) 786-4 Erythrocyte mean corpuscular hemoglobin concentration [Mass/volume] by Automated count L 31.1 g/dl 32 g/dl - 36 g/dl December 28, 2024 9:07:00 PM UTC (TECH: ADB) 40955-3 Erythrocyte distribution width [Ratio] H 15.9 % 11.5 % - 14.0 % December 28, 2024 9:07:00 PM UTC (TECH: ADB) 777-3 Platelets [#/volume] in Blood by Automated count N 169 K/ul 150 K/ul - 450 K/ul December 28, 2024 9:07:00 PM UTC (TECH: ADB) 73973-4 Platelet mean volume [Entitic volume] in Blood by Automated count N 9.5 fl 6 fl - 9.5 fl December 28, 2024 9:07:00 PM UTC (TECH: ADB) 91894-8 Neutrophils/100 leukocytes in Blood H 74.0 % 43 % - 65 % December 28, 2024 9:07:00 PM UTC (TECH: ADB) 736-9 Lymphocytes/100 leukocytes in Blood by Automated count L 14.9 % 20.5 % - 45.5 % December 28, 2024 9:07:00 PM UTC (TECH: ADB) 5905-5 Monocytes/100 leukocytes in Blood by Automated count N 7.5 % 5.5 % - 11.7 % December 28, 2024 9:07:00 PM UTC (TECH: ADB) 713-8 Eosinophils/100 leukocytes in Blood by Automated count N 1.8 % 0.9 % - 2.9 % December 28, 2024 9:07:00 PM UTC (TECH: ADB) 706-2 Basophils/100 leukocytes in Blood by Automated count H 1.4 % 0.2 % - 1.0 % December 28, 2024 9:07:00 PM UTC (TECH: ADB) 42734-4 Immature granulocytes/100 leukocytes in Blood by Automated count N 0.4 % 0.0 % - 0.8 % December 28, 2024 9:07:00 PM UTC (TECH: ADB) 42595-4 Nucleated cells [#/volume] in Blood N 0.0 % December 28, 2024 9:07:00 PM UTC (TECH: ADB) 61363-5 Neutrophils [#/volume] in Blood N 4.1 K/uL 2.2 K/uL - 4.8 K/uL December 28, 2024 9:07:00 PM UTC (TECH: ADB) 731-0 Lymphocytes [#/volume] in Blood by Automated count L 0.8 CELL/MCL 1.3 CELL/MCL - 2.9 CELL/MCL December 28, 2024 9:07:00 PM UTC (TECH: ADB) 742-7 Monocytes [#/volume] in Blood by Automated count N 0.4 CELL/MCL 0.3 CELL/MCL - 0.8 CELL/MCL December 28, 2024 9:07:00 PM UTC (TECH: ADB) 711-2 Eosinophils [#/volume] in Blood by Automated count N 0.1 CELL/MCL 0 CELL/MCL - 0.2 CELL/MCL December 28, 2024 9:07:00 PM UTC (TECH: ADB) 704-7 Basophils [#/volume] in Blood by Automated count N 0.1 CELL/MCL 0.0 CELL/MCL - 1.0 CELL/MCL December 28, 2024 9:07:00 PM UTC (TECH: ADB) 41147-0 Immature granulocytes [#/volume] in Blood N 0.02 K/ul December 28, 2024 9:07:00 PM UTC (TECH: ADB) 83690-3 Nucleated cells [#/volume] in Blood N 0.00 K/uL December 28, 2024 9:07:00 PM UTC (TECH: [employer]) 72216-0 Manual Differential panel - Blood N NO December 28, 2024 9:07:00 PM UTC (TECH: ADB) ORDER 400: COMP METABOLIC PA SAVANA (LOINC: 93453-9) ORDER DATE: December 28, 2024 7:53:00 PM UTC Specimen Source: PLASMA Specimen Type: Plasma specim en PERFORMING LAB: [address] [id number] Result Comment: Final Result Date: December 28, 2024 9:48:00 PM UT (TECH: [employer]) LOINC TEST FLAG RESULT REFERENCE RANGE UPDA DREW BY 2951-2 Sodium [Moles/volume ] in Serum or Plasma N 139 mmol/L 136 mmol/L - 145 mmol/L December 28, 2024 9:48:00 PM UTC (TECH: [employer]) 2823-3 Potassium [Moles/volume] in Serum or Plasma N 4.2 mmol/L 3.6 mmol/L - 5.0 mmol/L December 28, 2024 9:48:00 PM UTC (TECH: JNJ) 5-0 Chloride [Moles/volu me] in Serum or Plasma N 104 mmol/L 98 mmol/L - 107 mmol/L December 28, 2024 9:48:00 PM UTC (TECH: JNJ) 2027-9 Carbon dioxide, tota l [Moles/volume] in Serum or Plasma N 21.4 mmol/L 21.0 mmol/L - 32.0 mmol/L December 28, 2024 9:48:00 PM UTC (TECH: [employer]) 14393-5 Anion gap in Blood N 17.8 J 2024 9:48:00 PM UTC (TECH: [employer]) 2345-7 Glucose [Mass/volume ] in Serum or Plasma N 95 mg/dl 70 mg/dl - 120 mg/dl December 28, 2024 9:48:00 PM [facility] (TECH: [employer]) 6299-2 Urea nitrogen [Mass/volume] in Blood H 57 mg/dL 7 mg/dL - 18 mg/dL December 28, 2024 9:48:00 PM UT (TECH: [employer]) 74205-8 Creatinine [Moles/volume] in Blood HH 6.8 mg/dL 0.6 mg/dL - 1.3 mg/dL December 28, 2024 9:48:00 PM [facility] (TECH: [employer]) 07047-7 Glomerular filtratio n rate/1.73 sq M.predicted by Creatinine-based formula (MDRD) L 7 mlpermin 60 mlpermin December 28, 2024 9:48:00 PM [facility] (TECH: [employer]) 66748-0 Osmolality of Serum or Plasma by calculated by sum of electrolytes H 305 mosm/kg 275 mosm/kg - 301 mosm/kg December 28, 2024 9:48:00 PM [facility] (TECH: [employer]) 2885-2 Protein [Mass/volume ] in Serum or Plasma N 7.3 g/dl 6.4 g/dl - 8.2 g/dl December 28, 2024 9:48:00 PM [facility] (TECH: [employer]) 1751-7 Albumin [Mass/volume ] in Serum or Plasma L 2.9 g/dl 3.4 g/dl - 5.0 g/dl December 28, 2024 9:48:00 PM [facility] (TECH: [employer]) 2336-6 Globulin [Mass/volum e] in Serum N 4.4 December 28, 2024 9:48:00 PM [facility] (TECH: [employer]) 1759-0 Albumin/Globulin [Ma ss Ratio] in Serum or Plasma N 0.7 0.7 - 2 December 28, 2024 9:48:00 PM [facility] (TECH: [employer]) 88240-2 Calcium [Mass/volume ] in Serum or Plasma N 9.0 mg/dl 8.5 mg/dl - 10.5 mg/dl December 28, 2024 9:48:00 PM [facility] (TECH: [employer]) 1975-2 Bilirubin.total [Mass/volume] in Serum or Plasma N 0.50 mg/dL 0.10 mg/dL - 1.00 mg/dL December 28, 2024 9:48:00 PM UTC (TECH: [employer]) 1920-8 Aspartate aminotransferase [Enzymatic activity/volume] in Serum or Plasma N 11 U/L 0 U/L - 37 U/L December 28, 2024 9:48:00 PM UTC (TECH: [employer]) 1742-6 Alanine aminotransferase [Enzymatic activity/volume] in Serum or Plasma N 12 U/L 0 U/L - 65 U/L December 28, 2024 9:48:00 PM UTC (TECH: [employer]) 6768-6 Alkaline phosphatase [Enzymatic activity/volume] in Serum or Plasma N 114 U/L 46 U/L - 116 U/L December 28, 2024 9:48:00 PM UT (TECH: [employer]) ORDER 500: MAGNESIUM (LOINC: 89269-5) ORDER DATE: December 28, 2024 7:53:00 PM UTC Specimen Source: PLASMA Specimen Type: Plasma specim en PERFORMING LAB: [address] [id number] Result Comment: Final Result Date: December 28, 2024 9:48:00 PM UT (TECH: [employer]) LOINC TEST FLAG [place] [address]-5 Magnesium [Mass/volume] in Serum or Plasma H 2.6 MG/DL 1.8 MG/DL - 2.4 MG/DL December 28, 2024 9:48:00 PM UT (TECH: [employer]) ORDER 600: LACTIC ACID (LOIN C: 2524-7) ORDER DATE: December 28, 2024 7:53:00 PM UTC Specimen Source: PLASMA Specimen Type: Plasma specim en PERFORMING LAB: [address] [id number] Result Comment: Final Result Date: December 28, 2024 9:47:00 PM UT (TECH: [employer]) LOINC TEST FLAG RESULT REFERENCE RANGE UPDA DREW BY 2524-7 Lactate [Moles/volume] in Serum or Plasma N 0.9 mmol/L 0.4 mmol/L - 2.0 mmol/L December 28, 2024 9:47:00 PM UTC (TECH: JNJ) ORDER 700: NT-PRO BNP (LOINC : 36700-3) ORDER DATE: December 28, 2024 7:53:00 PM UTC Specimen Source: PLASMA Specimen Type: Plasma specim en PERFORMING LAB: [address] [id number] Result Comment: Final Result Date: December 28, 2024 9:48:00 PM UTC (TECH: JNJ) LOINC TEST FLAG [place] [address]-2 Natriuretic peptide B [Mass or Moles/volume] in Serum or Plasma H 468315.00 PG/ML 0.00 PG/ML - 125.00 PG/ML December 28, 2024 9:48:00 PM UTC (TECH: JNJ) ORDER 1400: CULTURE MRSA SCR EEN (LOINC: 75877-4) ORDER DATE: December 28, 2024 7:56:00 PM UTC Specimen Source: ADJUNCT PHLEBOTOMY INSTRUCTOR SWAB Specimen Type: Nasopharyngea l airway insertion PERFORMING LAB: [address] [id number] Result Comment: Final Result Date: December 30, 2024 12:18:00 PM UTC (TECH: AAC) LOINC TEST FLAG [place] [address]-4 Methicillin resistan t Staphylococcus aureus [Presence] in Unspecified specimen by Organism specific culture N NEGATIVE NEGATIVE December 30, 2024 12:18:00 PM UTC (TECH: AAC) ORDER 1500: CBC NO DIFF HEMO GRAM (LOINC: 37405-7) ORDER DATE: December 28, 2024 7:56:00 PM UTC Specimen Source: EDTA Specimen Type: Blood specime n with EDTA PERFORMING LAB: [address] [id number] Result Comment: Final Result Date: December 29, 2024 6:02:00 AM UTC (TECH: AY) LOINC TEST FLAG RESULT REFERENCE RANGE UPDA DREW BY 6690-2 Leukocytes [#/volume ] in Blood by Automated count N 6.7 K/ul 4.0 K/ul - 10.5 K/ul December 29, 2024 6:02:00 AM UTC (TECH: AY) 789-8 Erythrocytes [#/volume] in Blood by Automated count L 3.5 M/mm3 4.2 M/mm3 - 6.4 M/mm3 December 29, 2024 6:02:00 AM UT (TECH: AY) 718-7 Hemoglobin [Mass/volume] in Blood L 9.4 gm/dl 12.5 gm/dl - 16.0 gm/dl December 29, 2024 6:02:00 AM [facility] (TECH: AY) 50538-3 Hematocrit [Volume Fraction] of Blood L 30.4 % 37.0 % - 47.0 % December 29, 2024 6:02:00 AM [facility] (TECH: AY) 787-2 Erythrocyte mean corpuscular volume [Entitic volume] by Automated count N 87.1 fl 78 fl - 100 fl December 29, 2024 6:02:00 AM [facility] (TECH: AY) 785-6 Erythrocyte mean corpuscular hemoglobin [Entitic mass] by Automated count L 26.9 pg 27 pg - 31 pg December 29, 2024 6:02:00 AM [facility] (TECH: AY) 786-4 Erythrocyte mean corpuscular hemoglobin concentration [Mass/volume] by Automated count L 30.9 g/dl 32 g/dl - 36 g/dl December 29, 2024 6:02:00 AM [facility] (TECH: AY) 33868-3 Erythrocyte distribution width [Ratio] H 16.0 % 11.5 % - 14.0 % December 29, 2024 6:02:00 AM [facility] (TECH: AY) 777-3 Platelets [#/volume] in Blood by Automated count N 211 K/ul 150 K/ul - 450 K/ul December 29, 2024 6:02:00 AM [facility] (TECH: AY) 53385-3 Platelet mean volume [Entitic volume] in Blood by Automated count H 9.7 fl 6 fl - 9.5 fl December 29, 2024 6:02:00 AM [facility] (TECH: AY) 13053-4 Manual Differential panel - Blood N NO December 29, 2024 6:02:00 AM [facility] (TECH: AY) ORDER 1600: COMP METABOLIC P STEPHENIE (LOINC: 14736-0) ORDER DATE: December 28, 2024 7:56:00 PM UT Specimen Source: PLASMA Specimen Type: Plasma specim en PERFORMING LAB: [address] [place] [id number] Result Comment: Final Result Date: December 29, 2024 6:33:00 AM UTC (TECH: scrible) LOINC TEST FLAG RESULT REFERENCE RANGE UPDA DREW BY 2951-2 Sodium [Moles/volume ] in Serum or Plasma N 139 mmol/L 136 mmol/L - 145 mmol/L December 29, 2024 6:33:00 AM UTC (TECH: scrible) 2823-3 Potassium [Moles/volume] in Serum or Plasma N 4.2 mmol/L 3.6 mmol/L - 5.0 mmol/L December 29, 2024 6:33:00 AM UTC (TECH: scrible) 2075-0 Chloride [Moles/volume] in Serum or Plasma N 104 mmol/L 98 mmol/L - 107 mmol/L December 29, 2024 6:33:00 AM UT (TECH: scrible) 8-9 Carbon dioxide, tota l [Moles/volume] in Serum or Plasma L 20.4 mmol/L 21.0 mmol/L - 32.0 mmol/L December 29, 2024 6:33:00 AM UT (TECH: scrible) 66587-4 Anion gap in Blood N 18.8 J 2024 6:33:00 AM UTC (TECH: scrible) 2345-7 Glucose [Mass/volume ] in Serum or Plasma N 92 mg/dl 70 mg/dl - 120 mg/dl December 29, 2024 6:33:00 AM UTC (TECH: scrible) 6299-2 Urea nitrogen [Mass/volume] in Blood H 58 mg/dL 7 mg/dL - 18 mg/dL December 29, 2024 6:33:00 AM UTC (TECH: scrible) 11870-2 Creatinine [Moles/volume] in Blood HH 7.1 mg/dL 0.6 mg/dL - 1.3 mg/dL December 29, 2024 6:33:00 AM UTC (TECH: scrible) 86146-2 Glomerular filtratio n rate/1.73 sq M.predicted by Creatinine-based formula (MDRD) L 6 mlpermin 60 mlpermin December 29, 2024 6:33:00 AM UTC (TECH: scrible) 65756-2 Osmolality of Serum or Plasma by calculated by sum of electrolytes H 305 mosm/kg 275 mosm/kg - 301 mosm/kg December 29, 2024 6:33:00 AM UT (TECH: scrible) 2885-2 Protein [Mass/volume ] in Serum or Plasma N 7.2 g/dl 6.4 g/dl - 8.2 g/dl December 29, 2024 6:33:00 AM [facility] (TECH: scrible) 1751-7 Albumin [Mass/volume ] in Serum or Plasma L 2.8 g/dl 3.4 g/dl - 5.0 g/dl December 29, 2024 6:33:00 AM [facility] (TECH: scrible) 2336-6 Globulin [Mass/volum e] in Serum N 4.4 December 29, 2024 6:33:00 AM [facility] (TECH: scrible) 1759-0 Albumin/Globulin [Ma ss Ratio] in Serum or Plasma L 0.6 0.7 - 2 December 29, 2024 6:33:00 AM [facility] (Sococo: scrible) 50154-6 Calcium [Mass/volume ] in Serum or Plasma N 9.1 mg/dl 8.5 mg/dl - 10.5 mg/dl December 29, 2024 6:33:00 AM [facility] (TECH: scrible) 1975-2 Bilirubin.total [Mass/volume] in Serum or Plasma N 0.50 mg/dL 0.10 mg/dL - 1.00 mg/dL December 29, 2024 6:33:00 AM [facility] (TECH: scrible) 1920-8 Aspartate aminotransferase [Enzymatic activity/volume] in Serum or Plasma N 16 U/L 0 U/L - 37 U/L December 29, 2024 6:33:00 AM [facility] (TECH: scrible) 1742-6 Alanine aminotransferase [Enzymatic activity/volume] in Serum or Plasma N 12 U/L 0 U/L - 65 U/L December 29, 2024 6:33:00 AM [facility] (TECH: scrible) 6768-6 Alkaline phosphatase [Enzymatic activity/volume] in Serum or Plasma N 110 U/L 46 U/L - 116 U/L December 29, 2024 6:33:00 AM [facility] (TECH: scrible) ORDER 1700: URINALYSIS REFLE X MICROSCOPIC (LOINC: 41753-4) ORDER DATE: December 28, 2024 9:32:00 PM UTC Specimen Source: URINE Specimen Type: Urine specime n PERFORMING LAB: [facility] [address] [facility] [id number] Result Comment: Final Result Date: December 28, 2024 10:40:00 PM UTC (TECH: R[facility]) LOINC TEST FLAG RESULT REFERENCE RANGE UPDA DREW BY 5778-6 Color of Urine N YELLOW YELLOW December 28, 2024 10:40:00 PM UTC (TECH: [facility]MC) 5767-9 Appearance of Urine N CLEAR CLEAR December 28, 2024 10:40:00 PM UTC (TECH: RMC) 5792-7 Glucose [Mass/volume ] in Urine by Test strip N norm NORMAL December 28, 2024 10:40:00 PM UTC (TECH: RMC) 18249-6 Bilirubin.total [Mass/volume] in Urine by Automated test strip N NEGATIVE NEGATIVE December 28, 2024 10:40:00 PM UTC (TECH: RMC) 5797-6 Ketones [Mass/volume ] in Urine by Test strip N NEGATIVE NEGATIVE December 28, 2024 10:40:00 PM UTC (TECH: RMC) 2965-2 Specific gravity of Urine N 1.020 1.016 - 1.022 December 28, 2024 10:40:00 PM UTC (TECH: RMC) 11443-2 Erythrocytes [#/volume] in Urine by Automated test strip 25 NEGATIVE December 28, 2024 10:40:00 PM UTC (TECH: RMC) 67086-4 pH of Urine by Automated test strip N 6 5 - 9 December 28 10:40:00 PM UTC (TECH: RMC) 98382-8 Protein [Presence] i n Urine by Test strip 500 NEGATIVE December 28, 2024 10:40:00 PM UTC (TECH: RMC) 07090-1 Urobilinogen [Mass/volume] in Urine by Automated test strip N norm NORMAL December 28, 2024 10:40:00 PM UTC (TECH: RMC) 46292-6 Nitrate [Presence] i n Urine N NEGATIVE NEGATIVE December 28, 2024 10:40:00 PM UTC (TECH: RMC) 12268-6 Leukocytes [#/volume ] in Urine by Test strip N NEGATIVE NEGATIVE December 28, 2024 10:40:00 PM UTC (TECH: RMC) 63625-5 Urinalysis dipstick W Reflex Culture panel - Urine N NO December 28, 2024 10:40:00 PM UTC (TECH: RMC) 10363-4 Erythrocytes [#/area ] in Urine sediment by Microscopy high power field N 1-5 NONE SEEN December 28, 2024 10:40:00 PM UTC (TECH: RMC) 5821-4 Leukocytes [#/area] in Urine sediment by Microscopy high power field N 0-2 NONE SEEN December 28, 2024 10:40:00 PM UTC (TECH: RMC) 55515-3 Epithelial cells.squamous [#/area] in Urine sediment by Microscopy high power field N 1-5 NONE SEEN December 28, 2024 10:40:00 PM UTC (TECH: RMC) 5769-5 Bacteria [#/area] in Urine sediment by Microscopy high power field N TRACE NONE SEEN December 28, 2024 10:40:00 PM UTC (TECH: RMC) ORDER 2500: COMPLEMENT C3 (L OINC: 4485-9) ORDER DATE: December 29, 2024 4:09:00 AM UTC Specimen Source: SERUM Specimen Type: Serum specime n PERFORMING LAB: [facility] [address] [place] [id number] Result Comment: December 30, 2024 3:11:00 PM UTC Performed at: [facility] Result Comment: December 30, 2024 3:11:00 PM UTC [address] [place] [id number] Result Comment: December 30, 2024 3:11:00 PM UTC Certified Solid Waste Facility Operator: Farhan Terrell PhD, Phone: [phone] Result Comment: December 30, 2024 3:11:00 PM UTC Final Result Date: December 30, 2024 5:45:00 AM UTC (TECH: LAB) LOINC TEST FLAG RESULT REFERENCE RANGE UPDA DREW BY 4485-9 Complement C3 [Mass/volume] in Serum or Plasma N 112 mg/dL 82-167 December 30, 2024 5:45:00 AM UTC (TECH: LAB) ORDER 2600: COMPLEMENT C4 (L OINC: 4498-2) ORDER DATE: December 29, 2024 4:09:00 AM UTC Specimen Source: SERUM Specimen Type: Serum specime n PERFORMING LAB: [address] [id number] Result Comment: December 30, 2024 3:11:00 PM UTC Performed at: [facility] Result Comment: December 30, 2024 3:11:00 PM UTC [address] [place] [phone] Result Comment: December 30, 2024 3:11:00 PM UTC Certified Solid Waste Facility Operator: Farhan Terrell PhD, Phone: [phone] Result Comment: December 30, 2024 3:11:00 PM UTC Final Result Date: December 30, 2024 5:45:00 AM UTC (TECH: LAB) LOINC TEST FLAG RESULT REFERENCE RANGE UPDA DREW BY 4498-2 Complement C4 [Mass/volume] in Serum or Plasma N 27 mg/dL 12-December 30, 2024 5:45:00 AM UTC (TECH: LAB) ORDER 2800: PTH INTACT (LOIN C: 2731-8) ORDER DATE: December 29, 2024 4:09:00 AM UTC Specimen Source: PLASMA Specimen Type: Plasma specim en PERFORMING LAB: [address] [id number] Result Comment: December 30, 2024 3:11:00 PM UTC Performed at: [facility] Result Comment: December 30, 2024 3:11:00 PM UTC [address] [place] [id number] Result Comment: December 30, 2024 3:11:00 PM UTC Certified Solid Waste Facility Operator: Farhan Terrell PhD, Phone: [phone] Result Comment: December 30, 2024 3:11:00 PM UTC Final Result Date: December 29, 2024 5:45:00 AM UTC (TECH: LAB) LOINC TEST FLAG RESULT REFERENCE RANGE UPDA DREW BY 2731-8 Parathyrin.intac t [Mass/volume] in Serum or Plasma H 368 pg/mL 15-65 December 29, 2024 5:45:00 AM UTC (TECH: LAB) ORDER 3000: URIC ACID (LOINC : 02048-8) ORDER DATE: December 29, 2024 4:09:00 AM UTC Specimen Source: PLASMA Specimen Type: Plasma specim en PERFORMING LAB: [address] [place] [id number] Result Comment: Final Result Date: December 29, 2024 6:09:00 AM UTC (TECH: ME) LOINC TEST FLAG [place] [address]-3 Urate [Mass or Moles/volume] in Serum or Plasma H 6.3 mg/dL 2.6 mg/dL - 6.0 mg/dL December 29, 2024 6:09:00 AM UTC (TECH: ME) ORDER 3100: URINE CREATININE (LOINC: 2161-8) ORDER DATE: December 29, 2024 4:09:00 AM UTC Specimen Source: URINE Specimen Type: Urine specime n PERFORMING LAB: [address] [id number] Result Comment: Final Result Date: December 29, 2024 4:38:00 AM UTC (TECH: ME) LOINC TEST FLAG RESULT REFERENCE RANGE UPDA DREW BY 2161-8 Creatinine [Mass/volume] in Urine N 103.6 MG/DL December 29, 2024 4:38:00 AM UTC (TECH: ME) ORDER 3200: URINE EOSINOPHIL S (LOINC: 34936-4) ORDER DATE: December 29, 2024 4:09:00 AM UTC Specimen Source: URINE Specimen Type: Urine specime n PERFORMING LAB: [address] [id number] Result Comment: Final Result Date: December 29, 2024 6:31:00 AM UTC (TECH: AY) LOINC TEST FLAG [place] [address]-8 Eosinophils/100 leukocytes in Urine by Manual count N ABSENT ABSENT December 29, 2024 6:31:00 AM UTC (TECH: AY) 8251-1 Service comment N OK OK December 29, 2024 6:31:00 AM UTC (TECH: AY) 80469-8 Choriogonadotropin [Presence] in control Serum N OK OK December 29, 2024 6:31:00 AM UTC (TECH: AY) ORDER 3300: URINE SODIUM (LO INC: 2955-3) ORDER DATE: December 29, 2024 4:09:00 AM UTC Specimen Source: URINE Specimen Type: Urine specime n PERFORMING LAB: [address] [id number] Result Comment: Final Result Date: December 29, 2024 4:38:00 AM UTC (TECH: ME) LOINC TEST FLAG RESULT REFERENCE RANGE UPDA DREW BY 2955-3 Sodium [Moles/volume] in Urine N 33 MMOL/L December 29, 2024 4:38:00 AM UTC (TECH: ME) ORDER 3400: URINE TOTAL PROT EIN (LOINC: 2888-6) ORDER DATE: December 29, 2024 4:09:00 AM UTC Specimen Source: URINE Specimen Type: Urine specime n PERFORMING LAB: [address] [id number] Result Comment: Final Result Date: December 29, 2024 4:38:00 AM UTC (TECH: ME) LOINC TEST FLAG RESULT REFERENCE RANGE UPDA DREW BY 2888-6 Protein [Mass/volume] in Urine H 944.1 mg/dL 6.0 mg/dL - 250.0 mg/dL December 29, 2024 4:38:00 AM UTC (TECH: ME) ORDER 3600: VITAMIN D 25-HYD JOSSELYN (LOINC: 1988-3) ORDER DATE: December 29, 2024 4:09:00 AM UTC Specimen Source: SERUM Specimen Type: Serum specime n PERFORMING LAB: [address] [id number] Result Comment: Final Result Date: December 29, 2024 6:46:00 AM UTC (TECH: ME) LOINC TEST FLAG RESULT REFERENCE RANGE UPDA DREW BY 1988- Calcidiol [Mass/volume] in Serum or Plasma L 6.6 ng/mL 30.0 ng/mL - 100.0 ng/mL December 29, 2024 6:46:00 AM UTC (TECH: ME) ORDER 4100: RODRIGO W/REFLEX IF POSITIVE (LOINC: 8061-4) ORDER DATE: December 29, 2024 8:17:00 PM UTC Specimen Source: SERUM Specimen Type: Serum specime n PERFORMING LAB: [address] [id number] Result Comment: December 31, 2024 5:10:00 PM UTC . Result Comment: December 31, 2024 5:10:00 PM UTC Autoantibody [employer] Result Comment: December 31, 2024 5:10:00 PM UTC Result Comment: December 31, 2024 5:10:00 PM UTC Result Comment: December 31, 2024 5:10:00 PM UTC Condition Frequency Result Comment: December 31, 2024 5:10:00 PM UTC Result Comment: December 31, 2024 5:10:00 PM UTC --------- Result Comment: December 31, 2024 5:10:00 PM UTC Result Comment: December 31, 2024 5:10:00 PM UTC Antinuclear Antibody, SLE, mixed connective Result Comment: December 31, 2024 5:10:00 PM UTC Direct (RODRIGO-D) tissue diseases Result Comment: December 31, 2024 5:10:00 PM UTC --------- Result Comment: December 31, 2024 5:10:00 PM UTC Result Comment: December 31, 2024 5:10:00 PM UTC dsDNA SLE 40 - 60% Result Comment: December 31, 2024 5:10:00 PM UTC Result Comment: December 31, 2024 5:10:00 PM UTC --------- Result Comment: December 31, 2024 5:10:00 PM UTC Result Comment: December 31, 2024 5:10:00 PM UTC 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% Result Comment: December 31, 2024 5:10:00 PM UTC Result Comment: December 31, 2024 5:10:00 PM UTC SLE 48 - 97% Result Comment: December 31, 2024 5:10:00 PM UTC Result Comment: December 31, 2024 5:10:00 PM UTC --------- Result Comment: December 31, 2024 5:10:00 PM UTC Result Comment: December 31, 2024 5:10:00 PM UTC SSA (Ro) SLE 25 - 35% Result Comment: December 31, 2024 5:10:00 PM UTC Result Comment: December 31, 2024 5:10:00 PM UTC Sjogren's Syndrome 40 - 70% Result Comment: December 31, 2024 5:10:00 PM UTC Result Comment: December 31, 2024 5:10:00 PM UTC Lupus 100% Result Comment: December 31, 2024 5:10:00 PM UTC Result Comment: December 31, 2024 5:10:00 PM UTC --------- Result Comment: December 31, 2024 5:10:00 PM UTC Result Comment: December 31, 2024 5:10:00 PM UTC SSB (La) SLE 10% Result Comment: December 31, 2024 5:10:00 PM UTC Result Comment: December 31, 2024 5:10:00 PM UTC Sjogren's Syndrome 30% Result Comment: December 31, 2024 5:10:00 PM UTC Result Comment: December 31, 2024 5:10:00 PM UTC --------- Result Comment: December 31, 2024 5:10:00 PM UTC Result Comment: December 31, 2024 5:10:00 PM UTC Sm (anti-Reza) SLE 15 - 30% Result Comment: December 31, 2024 5:10:00 PM UTC Result Comment: December 31, 2024 5:10:00 PM UTC --------- Result Comment: December 31, 2024 5:10:00 PM UTC Result Comment: December 31, 2024 5:10:00 PM UTC 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[employer] Mixed Connective Tissue Result Comment: December 31, 2024 5:10:00 PM UTC Disease 95% Result Comment: December 31, 2024 5:10:00 PM UTC Result Comment: December 31, 2024 5:10:00 PM UTC (U1 nRNP, SLE 30 - 50% Result Comment: December 31, 2024 5:10:00 PM UTC Result Comment: December 31, 2024 5:10:00 PM UTC anti-ribonucleoprotein) Polymyositis and/or Result Comment: December 31, 2024 5:10:00 PM UTC Dermatomyositis 20% Result Comment: December 31, 2024 5:10:00 PM UTC Result Comment: December 31, 2024 5:10:00 PM UTC --------- Result Comment: December 31, 2024 5:10:00 PM UTC Result Comment: December 31, 2024 5:10:00 PM UTC Scl-70 (antiDNA Scleroderma (diffuse) 20 - 35% Result Comment: December 31, 2024 5:10:00 PM UTC Result Comment: December 31, 2024 5:10:00 PM UTC topoisomerase) Crest 13% Result Comment: December 31, 2024 5:10:00 PM UTC Result Comment: December 31, 2024 5:10:00 PM UTC --------- Result Comment: December 31, 2024 5:10:00 PM UTC Result Comment: December 31, 2024 5:10:00 PM UTC Sasha-1 Polymyositis and/or Result Comment: December 31, 2024 5:10:00 PM UTC Dermatomyositis 20 - 40% Result Comment: December 31, 2024 5:10:00 PM UTC Result Comment: December 31, 2024 5:10:00 PM UTC --------- Result Comment: December 31, 2024 5:10:00 PM UTC Result Comment: December 31, 2024 5:10:00 PM UTC Centromere B Scleroderma - Crest Result Comment: December 31, 2024 5:10:00 PM UTC variant 80% Result Comment: December 31, 2024 5:10:00 PM UTC Result Comment: December 31, 2024 5:10:00 PM UTC Performed at: [facility] Result Comment: December 31, 2024 5:10:00 PM UTC [address], [place] [id number] Result Comment: December 31, 2024 5:10:00 PM UTC Certified Solid Waste Facility Operator: Farhan Terrell PhD, Phone: [phone] Result Comment: December 31, 2024 5:10:00 PM UTC Final Result Date: December 30, 2024 5:55:00 AM UTC (TECH: LAB) LOINC TEST FLAG RESULT REFERENCE RANGE UPDA DREW BY 8061-4 Nuclear Ab [Presence ] in Serum Positive Negative December 30, 2024 5:55:00 AM UTC (TECH: LAB) 5130-0 DNA double strand Ab [Units/volume] in Serum N 2 IU/mL 0-9 December 30, 2024 5:55:00 AM UTC (TECH: LAB) 63959-6 Ribonucleoprotein extractable nuclear Ab [Mass/volume] in Serum N 0.3 AI 0.0-0.9 December 30 5:55:00 AM UTC (TECH: LAB) 00275-5 Reza extractable nuclear Ab and Ribonucleoprotein extractable nuclear Ab panel - Serum H 1.8 AI 0.0-0.9 December 30, 2024 5:55:00 AM UTC (TECH: LAB) 05177-6 SCL-70 extractable nuclear Ab [Units/volume] in Serum N <0.2 AI 0.0-0.9 December 30, 2024 5:55:00 AM UTC (TECH: LAB) 23899-7 Sjogrens syndrome-A extractable nuclear Ab [Units/volume] in Serum N <0.2 AI 0.0-0.9 December 30, 2024 5:55:00 AM UTC (TECH: LAB) 76713-2 Sjogrens syndrome-B extractable nuclear Ab [Units/volume] in Serum N <0.2 AI 0.0-0.9 December 30, 2024 5:55:00 AM UTC (TECH: LAB) 47468-6 Chromatin Ab [Units/volume] in Serum or Plasma N <0.2 AI 0.0-0.9 December 30, 2024 5:55:00 AM UTC (TECH: LAB) 47753-7 Sasha-1 extractable nuc lear Ab [Units/volume] in Serum N <0.2 AI 0.0-0.9 December 30, 2024 5:55:00 AM UTC (TECH: LAB) 70714-0 Centromere protein B Ab [Units/volume] in Serum N <0.2 AI 0.0-0.9 December 30, 2024 5:55:00 AM UTC (TECH: LAB) 44424-4 Note N Comment December 30 5:55:00 AM UTC (TECH: LAB) ORDER 4200: ANTI-DNA DS AB ( LOINC: 5130-0) ORDER DATE: December 29, 2024 8:36:00 PM UTC Specimen Source: SERUM Specimen Type: Serum specime n PERFORMING LAB: [address] [id number] Result Comment: December 31, 2024 3:11:00 PM UTC Negative <5 Result Comment: December 31, 2024 3:11:00 PM UTC Equivocal 5 - 9 Result Comment: December 31, 2024 3:11:00 PM UTC Positive >9 Result Comment: December 31, 2024 3:11:00 PM UTC Performed at: [facility] Result Comment: December 31, 2024 3:11:00 PM UTC [address], [place] [id number] Result Comment: December 31, 2024 3:11:00 PM UTC Certified Solid Waste Facility Operator: Farhan Terrell PhD, Phone: [phone] Result Comment: December 31, 2024 3:11:00 PM UTC Final Result Date: December 31, 2024 5:55:00 AM UTC (TECH: LAB) LOINC TEST FLAG RESULT REFERENCE RANGE UPDA DREW BY 5130-0 DNA double strand Ab [Units/volume] in Serum N 2 IU/mL 0-9 December 31, 2024 5:55:00 AM UTC (TECH: LAB) ORDER 4300: PROTEIN ELECTROP HORESIS SERUM (LOINC: 2885-2) ORDER DATE: December 29, 2024 8:36:00 PM UTC Specimen Source: SERUM Specimen Type: Serum specime n PERFORMING LAB: [address] [id number] Result Comment: December 31, 2024 7:10:00 PM UTC . Result Comment: December 31, 2024 7:10:00 PM UTC Protein electrophoresis scan will follow via computer, Result Comment: December 31, 2024 7:10:00 PM UTC mail, or loss prevention representative delivery. Result Comment: December 31, 2024 7:10:00 PM UTC Final Result Date: December 30, 2024 5:55:00 AM UTC (TECH: LAB) LOINC TEST FLAG RESULT REFERENCE RANGE UPDATED BY 2885-2 Protein [Mass/volume] in Serum or Plasma N 6.5 g/dL 6.0 g/dL - 8.5 g/dL December 30, 2024 5:55:00 AM UTC (TECH: LAB) 2862-1 Albumin [Mass/volume] in Serum or Plasma by Electrophoresis N 3.0 g/dL 2.9-4.4 December 30, 2024 5:55:00 AM UTC (TECH: LAB) 2865-4 Alpha 1 globulin [Mass/volume] in Serum or Plasma by Electrophoresis N 0.3 g/dL 0.0-0.4 December 30, 2024 5:55:00 AM UTC (TECH: LAB) 2868-8 Alpha 2 globulin [Mass/volume] in Serum or Plasma by Electrophoresis N 0.7 g/dL 0.4-1.0 December 30, 2024 5:55:00 AM UTC (TECH: LAB) 2871-2 Beta globulin [Mass/volume] in Serum or Plasma by Electrophoresis N 0.9 g/dL 0.7-1.3 December 30, 2024 5:55:00 AM UTC (TECH: LAB) 2874-6 Gamma globulin [Mass/volume] in Serum or Plasma by Electrophoresis N 1.5 g/dL 0.4-1.8 December 30, 2024 5:55:00 AM UTC (TECH: LAB) 71162-2 Protein.monoclonal [Mass/volume] in Serum or Plasma by Electrophoresis N Not Observed Not Observed December 30, 2024 5:55:00 AM UTC (TECH: LAB) 26061-7 Globulin [Mass/volume] in Serum by calculation N 3.5 g/dL 2.2-3.9 December 30, 2024 5:55:00 AM UTC (TECH: LAB) 1759-0 Albumin/Globulin [Mass Ratio] in Serum or Plasma N 0.9 0.7-1.7 December 30, 2024 5:55:00 AM UTC (TECH: LAB) 8251-1 Service comment N . December 30, 2024 5:55:00 AM UTC (TECH: LAB) 02412-1 Pathology Note N Comment December 30, 2024 5:55:00 AM UTC (TECH: LAB) ORDER 4400: QFT-TB PLUS CLIE NT INCUBATED (LOINC: 25166-5) ORDER DATE: December 29, 2024 9:35:00 PM UT Specimen Source: SERUM Specimen Type: Serum specime n PERFORMING LAB: [address] [id number] Result Comment: December 31, 2024 11:09:00 PM UTC No response to M tuberculosis antigens detected. Result Comment: December 31, 2024 11:09:00 PM UTC Infection with M tuberculosis is unlikely, but high risk Result Comment: December 31, 2024 11:09:00 PM UTC individuals should be considered for additional testing Result Comment: December 31, 2024 11:09:00 PM UTC (ATS/IDSA/CDC Clinical Practice Guidelines, 2017). The Result Comment: December 31, 2024 11:09:00 PM UTC reference range is an Antigen minus Nil result of <0.35 Result Comment: December 31, 2024 11:09:00 PM UTC IU/mL. Result Comment: December 31, 2024 11:09:00 PM UTC The specimen received for QuantiFERON testing was Result Comment: December 31, 2024 11:09:00 PM UTC incubated by the ordering institution. Specific procedures Result Comment: December 31, 2024 11:09:00 PM UTC outlined in our Directory of Services and in the package Result Comment: December 31, 2024 11:09:00 PM UTC insert for the QuantiFERON Gold (In Tube) test must be Result Comment: December 31, 2024 11:09:00 PM UTC followed to enable for proper stimulation of cells for the Result Comment: December 31, 2024 11:09:00 PM UTC production of interferon gamma. Result Comment: December 31, 2024 11:09:00 PM UTC Chemiluminescence immunoassay methodology Result Comment: December 31, 2024 11:09:00 PM UTC Performed at: [facility] Result Comment: December 31, 2024 11:09:00 PM UTC [address], [place] [id number] Result Comment: December 31, 2024 11:09:00 PM UTC Certified Solid Waste Facility Operator: Farhan Terrell PhD, Phone: [phone] Result Comment: December 31, 2024 11:09:00 PM UTC Final Result Date: December 30, 2024 5:55:00 AM UTC (TECH: LAB) LOINC TEST FLAG [place] [address]-5 Data criteria Narrative N Comment December 30, 2024 5:55:00 AM UTC (TECH: LAB) 00005-8 Mitogen stimulated gamma interferon [Units/volume] in Blood N 0.03 IU/mL December 30, 2024 5:55:00 AM UTC (TECH: LAB) 56966-6 Mitogen stimulated gamma interferon [Units/volume] in Blood N 0.04 IU/mL December 30, 2024 5:55:00 AM UTC (TECH: LAB) 49699-6 Mycobacterium tuberculosis stimulated gamma interferon [Units/volume] corrected for background in Blood N 0.04 IU/mL December 30, 2024 5:55:00 AM UTC (TECH: LAB) 22778-7 Annotation comment Narrative N >10.00 IU/mL December 30, 2024 5:55:00 AM UTC (TECH: LAB) 62975-0 Mycobacterium tuberculosis stimulated gamma interferon [Interpretation] in Blood Qualitative N Negative Negative December 30, 2024 5:55:00 AM UTC (TECH: LAB) ORDER 4500: HBV SCREENING AN D DIAGNOSIS (LOINC: 16121-7) ORDER DATE: December 29, 2024 9:35:00 PM UTC Specimen Source: SERUM Specimen Type: Serum specime n PERFORMING LAB: [address] [id number] Result Comment: December 31, 2024 11:09:00 AM UTC . Result Comment: December 31, 2024 11:09:00 AM UTC HBV Serology Interpretation Chart Result Comment: December 31, 2024 11:09:00 AM UTC Result Comment: December 31, 2024 11:09:00 AM UTC -------- Result Comment: December 31, 2024 11:09:00 AM UTC Interpretation HBsAg anti-HBs anti- HBc anti- Result Comment: December 31, 2024 11:09:00 AM UTC HBc IgM Result Comment: December 31, 2024 11:09:00 AM UTC Result Comment: December 31, 2024 11:09:00 AM UTC -------- Result Comment: December 31, 2024 11:09:00 AM UTC Pastrana - Analyte present: + Analyte absent: - Test not indicat Result Comment: December 31, 2024 11:09:00 AM UTC ed: TNI Result Comment: December 31, 2024 11:09:00 AM UTC Result Comment: December 31, 2024 11:09:00 AM UTC -------- Result Comment: December 31, 2024 11:09:00 AM UTC Susceptible (never Result Comment: December 31, 2024 11:09:00 AM UTC infected and no evidence - - - T Result Comment: December 31, 2024 11:09:00 AM UTC NI Result Comment: December 31, 2024 11:09:00 AM UTC of vaccination) Result Comment: December 31, 2024 11:09:00 AM UTC Result Comment: December 31, 2024 11:09:00 AM UTC -------- Result Comment: December 31, 2024 11:09:00 AM UTC Immune due to natural Result Comment: December 31, 2024 11:09:00 AM UTC resolved infection - + + T Result Comment: December 31, 2024 11:09:00 AM UTC NI Result Comment: December 31, 2024 11:09:00 AM UTC Result Comment: December 31, 2024 11:09:00 AM UTC -------- Result Comment: December 31, 2024 11:09:00 AM UTC Immune due to vaccination - + - T Result Comment: December 31, 2024 11:09:00 AM UTC NI Result Comment: December 31, 2024 11:09:00 AM UTC Result Comment: December 31, 2024 11:09:00 AM UTC -------- Result Comment: December 31, 2024 11:09:00 AM UTC Acute Infection + - + Result Comment: December 31, 2024 11:09:00 AM UTC + Result Comment: December 31, 2024 11:09:00 AM UTC Result Comment: December 31, 2024 11:09:00 AM UTC -------- Result Comment: December 31, 2024 11:09:00 AM UTC Chronic infection + - + Result Comment: December 31, 2024 11:09:00 AM UTC - Result Comment: December 31, 2024 11:09:00 AM UTC Result Comment: December 31, 2024 11:09:00 AM UTC -------- Result Comment: December 31, 2024 11:09:00 AM UTC Interpretation unclear* - - + + Result Comment: December 31, 2024 11:09:00 AM UTC /- Result Comment: December 31, 2024 11:09:00 AM UTC Result Comment: December 31, 2024 11:09:00 AM UTC -------- Result Comment: December 31, 2024 11:09:00 AM UTC *Multiple possibilities: resolved infection (most common); Result Comment: December 31, 2024 11:09:00 AM UTC false- Result Comment: December 31, 2024 11:09:00 AM UTC positive anti-HBc (susceptible); low-level chronic infec Result Comment: December 31, 2024 11:09:00 AM UTC tion ; Result Comment: December 31, 2024 11:09:00 AM UTC resolving acute infection. Result Comment: December 31, 2024 11:09:00 AM UTC Performed at: [facility] Result Comment: December 31, 2024 11:09:00 AM UTC [address] [place] [id number] Result Comment: December 31, 2024 11:09:00 AM UTC Certified Solid Waste Facility Operator: Farhan Terrell PhD, Phone: [phone] Result Comment: December 31, 2024 11:09:00 AM UTC Final Result Date: December 30, 2024 5:55:00 AM UTC (TECH: LAB) LOINC TEST FLAG RESULT REFERENCE RANGE UPDA DREW BY 5196-1 Hepatitis B virus surface Ag [Presence] in Serum or Plasma by Immunoassay N Negative Negative December 30, 2024 5:55:00 AM UTC (TECH: LAB) 55352-6 Hepatitis B virus surface Ab [Presence] in Serum by Immunoassay N Reactive December 30, 2024 5:55:00 AM UTC (TECH: LAB) 27574-6 Hepatitis B virus core IgM Ab [Presence] in Serum or Plasma by Immunoassay N Negative Negative December 30, 2024 5:55:00 AM UTC (TECH: LAB) 80864-9 Laboratory comment [Text] in Report Narrative N Comment December 30, 2024 5:55:00 AM UTC (TECH: LAB) 3281-3 Lupus anticoagulant [interpretation] in Platelet poor plasma N Comment December 30 5:55:00 AM UTC (TECH: LAB) ORDER 4600: CBC AUTO W DIFF (LOINC: 84296-8) ORDER DATE: December 29, 2024 9:38:00 PM UTC Specimen Source: EDTA Specimen Type: Blood specime n with EDTA PERFORMING LAB: [address] [id number] Result Comment: Final Result Date: December 30, 2024 6:13:00 AM UTC (fromAtoB) LOINC TEST FLAG RESULT REFERENCE RANGE UPDA DREW BY 6690-2 Leukocytes [#/volume] in Blood by Automated count N 5.7 K/ul 4.0 K/ul - 10.5 K/ul December 30, 2024 6:13:00 AM UTC (fromAtoB) 789-8 Erythrocytes [#/volume] in Blood by Automated count L 3.4 M/mm3 4.2 M/mm3 - 6.4 M/mm3 December 30, 2024 6:13:00 AM UTC (fromAtoB) 718-7 Hemoglobin [Mass/volume] in Blood L 9.3 gm/dl 12.5 gm/dl - 16.0 gm/dl December 30, 2024 6:13:00 AM UTC (fromAtoB) 89563-2 Hematocrit [Volume Fraction] of Blood L 29.4 % 37.0 % - 47.0 % December 30, 2024 6:13:00 AM UTC (fromAtoB) 787-2 Erythrocyte mean corpuscular volume [Entitic volume] by Automated count N 86.7 fl 78 fl - 100 fl December 30, 2024 6:13:00 AM UTC (fromAtoB) 785-6 Erythrocyte mean corpuscular hemoglobin [Entitic mass] by Automated count N 27.4 pg 27 pg - 31 pg December 30, 2024 6:13:00 AM UTC (fromAtoB) 786-4 Erythrocyte mean corpuscular hemoglobin concentration [Mass/volume] by Automated count L 31.6 g/dl 32 g/dl - 36 g/dl December 30, 2024 6:13:00 AM UTC (fromAtoB) 08990-9 Erythrocyte distribution width [Ratio] H 16.2 % 11.5 % - 14.0 % December 30, 2024 6:13:00 AM UTC (fromAtoB) 777-3 Platelets [#/volume] in Blood by Automated count N 206 K/ul 150 K/ul - 450 K/ul December 30, 2024 6:13:00 AM UTC (fromAtoB) 51448-9 Platelet mean volume [Entitic volume] in Blood by Automated count N 9.0 fl 6 fl - 9.5 fl December 30, 2024 6:13:00 AM UTC (fromAtoB) 83514-5 Neutrophils/100 leukocytes in Blood H 73.0 % 43 % - 65 % December 30, 2024 6:13:00 AM UTC (TECH: scrible) 736-9 Lymphocytes/100 leukocytes in Blood by Automated count L 15.4 % 20.5 % - 45.5 % December 30, 2024 6:13:00 AM UTC (TECH: scrible) 5905-5 Monocytes/100 leukocytes in Blood by Automated count N 8.5 % 5.5 % - 11.7 % December 30, 2024 6:13:00 AM UTC (Sococo: scrible) 713-8 Eosinophils/100 leukocytes in Blood by Automated count N 1.8 % 0.9 % - 2.9 % December 30, 2024 6:13:00 AM UTC (Sococo: scrible) 706-2 Basophils/100 leukocytes in Blood by Automated count H 1.1 % 0.2 % - 1.0 % December 30, 2024 6:13:00 AM UTC (Sococo: scrible) 43725-1 Immature granulocytes/100 leukocytes in Blood by Automated count N 0.2 % 0.0 % - 0.8 % December 30, 2024 6:13:00 AM UT (Sococo: scrible) 76251-7 Nucleated cells [#/volume] in Blood N 0.0 % December 30, 2024 6:13:00 AM UT (Sococo: scrible) 26265-5 Neutrophils [#/volume] in Blood N 4.1 K/uL 2.2 K/uL - 4.8 K/uL December 30, 2024 6:13:00 AM UT (Sococo: scrible) 731-0 Lymphocytes [#/volume] in Blood by Automated count L 0.9 CELL/MCL 1.3 CELL/MCL - 2.9 CELL/MCL December 30, 2024 6:13:00 AM UTC (TECH: scrible) 742-7 Monocytes [#/volume] in Blood by Automated count N 0.5 CELL/MCL 0.3 CELL/MCL - 0.8 CELL/MCL December 30, 2024 6:13:00 AM UTC (TECH: scrible) 711-2 Eosinophils [#/volume] in Blood by Automated count N 0.1 CELL/MCL 0 CELL/MCL - 0.2 CELL/MCL December 30, 2024 6:13:00 AM UT (TECH: ME) 704-7 Basophils [#/volume] in Blood by Automated count N 0.1 CELL/MCL 0.0 CELL/MCL - 1.0 CELL/MCL December 30, 2024 6:13:00 AM UT (TECH: ME) 36860-5 Immature granulocytes [#/volume] in Blood N 0.01 K/ul December 30, 2024 6:13:00 AM UT (TECH: ME) 44834-7 Nucleated cells [#/volume] in Blood N 0.00 K/uL December 30, 2024 6:13:00 AM UT (TECH: ME) 15731-5 Manual Differential panel - Blood N NO December 30, 2024 6:13:00 AM [facility] (TECH: ME) ORDER 4700: COMP METABOLIC P STEPHENIE (LOINC: 16763-1) ORDER DATE: December 29, 2024 9:38:00 PM UT Specimen Source: PLASMA Specimen Type: Plasma specim en PERFORMING LAB: [address] [id number] Result Comment: Final Result Date: December 30, 2024 6:32:00 AM UT (TECH: AY) LOINC TEST FLAG RESULT REFERENCE RANGE UPDA DREW BY 2951-2 Sodium [Moles/volume ] in Serum or Plasma N 138 mmol/L 136 mmol/L - 145 mmol/L December 30, 2024 6:32:00 AM UT (TECH: AY) 2823-3 Potassium [Moles/volume] in Serum or Plasma L 3.3 mmol/L 3.6 mmol/L - 5.0 mmol/L December 30, 2024 6:32:00 AM UT (TECH: AY) 2075-0 Chloride [Moles/volu me] in Serum or Plasma N 99 mmol/L 98 mmol/L - 107 mmol/L December 30, 2024 6:32:00 AM UT (TECH: AY) 2027-9 Carbon dioxide, tota l [Moles/volume] in Serum or Plasma N 23.9 mmol/L 21.0 mmol/L - 32.0 mmol/L December 30, 2024 6:32:00 AM UT (TECH: AY) 14382-7 Anion gap in Blood N 18.4 J 2024 6:32:00 AM UT (TECH: AY) 2345-7 Glucose [Mass/volume ] in Serum or Plasma N 91 mg/dl 70 mg/dl - 120 mg/dl December 30, 2024 6:32:00 AM [facility] (TECH: AY) 6299-2 Urea nitrogen [Mass/volume] in Blood H 29 mg/dL 7 mg/dL - 18 mg/dL December 30, 2024 6:32:00 AM UT (TECH: AY) 66911-9 Creatinine [Moles/volume] in Blood HH 4.0 mg/dL 0.6 mg/dL - 1.3 mg/dL December 30, 2024 6:32:00 AM UT (TECH: AY) 75675-4 Glomerular filtratio n rate/1.73 sq M.predicted by Creatinine-based formula (MDRD) L 12 mlpermin 60 mlpermin December 30, 2024 6:32:00 AM [facility] (TECH: AY) 80782-5 Osmolality of Serum or Plasma by calculated by sum of electrolytes N 293 mosm/kg 275 mosm/kg - 301 mosm/kg December 30, 2024 6:32:00 AM UT (TECH: AY) 2885-2 Protein [Mass/volume ] in Serum or Plasma N 7.1 g/dl 6.4 g/dl - 8.2 g/dl December 30, 2024 6:32:00 AM [facility] (TECH: AY) 1751-7 Albumin [Mass/volume ] in Serum or Plasma L 2.7 g/dl 3.4 g/dl - 5.0 g/dl December 30, 2024 6:32:00 AM UT (TECH: AY) 2336-6 Globulin [Mass/volum e] in Serum N 4.4 December 30, 2024 6:32:00 AM UT (TECH: AY) 1759-0 Albumin/Globulin [Ma ss Ratio] in Serum or Plasma L 0.6 0.7 - 2 December 30, 2024 6:32:00 AM [facility] (TECH: AY) 95409-7 Calcium [Mass/volume ] in Serum or Plasma N 9.3 mg/dl 8.5 mg/dl - 10.5 mg/dl December 30, 2024 6:32:00 AM UT (TECH: AY) 1975-2 Bilirubin.total [Mass/volume] in Serum or Plasma N 0.40 mg/dL 0.10 mg/dL - 1.00 mg/dL December 30, 2024 6:32:00 AM UT (TECH: AY) 1920-8 Aspartate aminotransferase [Enzymatic activity/volume] in Serum or Plasma N 16 U/L 0 U/L - 37 U/L December 30, 2024 6:32:00 AM UTC (TECH: AY) 1742-6 Alanine aminotransferase [Enzymatic activity/volume] in Serum or Plasma N 13 U/L 0 U/L - 65 U/L December 30, 2024 6:32:00 AM UT (TECH: AY) 6768-6 Alkaline phosphatase [Enzymatic activity/volume] in Serum or Plasma N 101 U/L 46 U/L - 116 U/L December 30, 2024 6:32:00 AM UT (TECH: AY) ORDER 5900: CBC NO DIFF HEMO GRAM (LOINC: 78148-1) ORDER DATE: December 31, 2024 11:23:00 AM UT Specimen Source: EDTA Specimen Type: Blood specime n with EDTA PERFORMING LAB: [address] [id number] Result Comment: Final Result Date: December 31, 2024 12:31:00 PM UT (TECH: PP) LOINC TEST FLAG RESULT REFERENCE RANGE UPDA DREW BY 6690-2 Leukocytes [#/volume ] in Blood by Automated count N 5.1 K/ul 4.0 K/ul - 10.5 K/ul December 31, 2024 12:31:00 PM UT (TECH: PP) 789-8 Erythrocytes [#/volume] in Blood by Automated count L 3.0 M/mm3 4.2 M/mm3 - 6.4 M/mm3 December 31, 2024 12:31:00 PM UT (TECH: PP) 718-7 Hemoglobin [Mass/volume] in Blood L 8.2 gm/dl 12.5 gm/dl - 16.0 gm/dl December 31, 2024 12:31:00 PM [place] (TECH: PP) 25820-5 Hematocrit [Volume Fraction] of Blood L 26.6 % 37.0 % - 47.0 % December 31, 2024 12:31:00 PM UTC (TECH: PP) 787-2 Erythrocyte mean corpuscular volume [Entitic volume] by Automated count N 89.0 fl 78 fl - 100 fl December 31, 2024 12:31:00 PM UTC (TECH: PP) 785-6 Erythrocyte mean corpuscular hemoglobin [Entitic mass] by Automated count N 27.4 pg 27 pg - 31 pg December 31, 2024 12:31:00 PM UTC (TECH: PP) 786-4 Erythrocyte mean corpuscular hemoglobin concentration [Mass/volume] by Automated count L 30.8 g/dl 32 g/dl - 36 g/dl December 31, 2024 12:31:00 PM UTC (TECH: PP) 81222-6 Erythrocyte distribution width [Ratio] H 16.1 % 11.5 % - 14.0 % December 31, 2024 12:31:00 PM UTC (TECH: PP) 777-3 Platelets [#/volume] in Blood by Automated count N 154 K/ul 150 K/ul - 450 K/ul December 31, 2024 12:31:00 PM UTC (TECH: PP) 29302-5 Platelet mean volume [Entitic volume] in Blood by Automated count N 9.3 fl 6 fl - 9.5 fl December 31, 2024 12:31:00 PM UTC (TECH: PP) 48600-9 Manual Differential panel - Blood N NO December 31, 2024 12:31:00 PM UTC (TECH: PP) ORDER 6000: BASIC METABOLIC PANEL (LOINC: 01004-9) ORDER DATE: December 31, 2024 11:23:00 AM UTC Specimen Source: PLASMA Specimen Type: Plasma specim en PERFORMING LAB: [address] [id number] Result Comment: Final Result Date: December 31, 2024 12:42:00 PM UTC (TECH: ARR) LOINC TEST FLAG RESULT REFERENCE RANGE UPDA DREW BY 2951-2 Sodium [Moles/volume] in Serum or Plasma L 134 mmol/L 136 mmol/L - 145 mmol/L December 31, 2024 12:42:00 PM UTC (TECH: ARR) 2823-3 Potassium [Moles/volume] in Serum or Plasma N 3.6 mmol/L 3.6 mmol/L - 5.0 mmol/L December 31, 2024 12:42:00 PM UTC (TECH: ARR) 5-0 Chloride [Moles/volume] in Serum or Plasma N 100 mmol/L 98 mmol/L - 107 mmol/L December 31, 2024 12:42:00 PM UTC (TECH: ARR) 2027-9 Carbon dioxide, total [Moles/volume] in Serum or Plasma N 29.7 mmol/L 21.0 mmol/L - 32.0 mmol/L December 31, 2024 12:42:00 PM UTC (TECH: ARR) 33815-3 Anion gap in Blood N 7.9 J 2024 12:42:00 PM UTC (TECH: ARR) 2345-7 Glucose [Mass/volume] in Serum or Plasma N 89 mg/dl 70 mg/dl - 120 mg/dl December 31, 2024 12:42:00 PM UTC (TECH: ARR) 6299-2 Urea nitrogen [Mass/volume] in Blood H 42 mg/dL 7 mg/dL - 18 mg/dL December 31, 2024 12:42:00 PM UTC (TECH: ARR) 26708-2 Creatinine [Moles/volume] in Blood HH 6.2 mg/dL 0.6 mg/dL - 1.3 mg/dL December 31, 2024 12:42:00 PM UTC (TECH: ARR) 50541-4 Glomerular filtration rate/1.73 sq M.predicted by Creatinine-based formula (MDRD) L 7 mlpermin 60 mlpermin December 31, 2024 12:42:00 PM UTC (TECH: ARR) 45362-4 Osmolality of Serum or Plasma by calculated by sum of electrolytes N 289 mosm/kg 275 mosm/kg - 301 mosm/kg December 31, 2024 12:42:00 PM UTC (TECH: ARR) 75610-4 Calcium [Mass/volume] in Serum or Plasma N 8.6 mg/dl 8.5 mg/dl - 10.5 mg/dl December 31, 2024 12:42:00 PM UTC (TECH: ARR) ORDER 6500: CBC AUTO W DIFF (LOINC: 16953-7) ORDER DATE: January 01, 2025 2:59:00 AM UTC Specimen Source: EDTA Specimen Type: Blood specime n with EDTA PERFORMING LAB: [place] [id number] [facility] [id number] Result Comment: Final Result Date: January 01, 2025 10:44:00 AM UTC (TECH: ADB) LOINC TEST FLAG RESULT REFERENCE RANGE UPDA DREW BY 6690-2 Leukocytes [#/volume] in Blood by Automated count N 5.8 K/ul 4.0 K/ul - 10.5 K/ul January 01, 2025 10:44:00 AM UTC (TECH: ADB) 789-8 Erythrocytes [#/volume] in Blood by Automated count L 3.0 M/mm3 4.2 M/mm3 - 6.4 M/mm3 January 01, 2025 10:44:00 AM UTC (TECH: ADB) 718-7 Hemoglobin [Mass/volume] in Blood L 8.1 gm/dl 12.5 gm/dl - 16.0 gm/dl January 01, 2025 10:44:00 AM UTC (TECH: ADB) 89242-5 Hematocrit [Volume Fraction] of Blood L 26.6 % 37.0 % - 47.0 % January 01, 2025 10:44:00 AM UTC (TECH: ADB) 787-2 Erythrocyte mean corpuscular volume [Entitic volume] by Automated count N 89.9 fl 78 fl - 100 fl January 01, 2025 10:44:00 AM UTC (TECH: ADB) 785-6 Erythrocyte mean corpuscular hemoglobin [Entitic mass] by Automated count N 27.4 pg 27 pg - 31 pg January 01, 2025 10:44:00 AM UTC (TECH: ADB) 786-4 Erythrocyte mean corpuscular hemoglobin concentration [Mass/volume] by Automated count L 30.5 g/dl 32 g/dl - 36 g/dl January 01, 2025 10:44:00 AM UTC (TECH: ADB) 00230-0 Erythrocyte distribution width [Ratio] H 16.1 % 11.5 % - 14.0 % January 01, 2025 10:44:00 AM UTC (TECH: ADB) 777-3 Platelets [#/volume] in Blood by Automated count L 144 K/ul 150 K/ul - 450 K/ul January 01, 2025 10:44:00 AM UTC (TECH: ADB) 34455-2 Platelet mean volume [Entitic volume] in Blood by Automated count H 10.0 fl 6 fl - 9.5 fl January 01, 2025 10:44:00 AM UTC (TECH: ADB) 21437-1 Neutrophils/100 leukocytes in Blood H 76.6 % 43 % - 65 % January 01, 2025 10:44:00 AM UTC (TECH: ADB) 736-9 Lymphocytes/100 leukocytes in Blood by Automated count L 10.6 % 20.5 % - 45.5 % January 01, 2025 10:44:00 AM UTC (TECH: ADB) 5905-5 Monocytes/100 leukocytes in Blood by Automated count N 9.9 % 5.5 % - 11.7 % January 01, 2025 10:44:00 AM UT (TECH: ADB) 713-8 Eosinophils/100 leukocytes in Blood by Automated count N 1.4 % 0.9 % - 2.9 % January 01, 2025 10:44:00 AM UTC (TECH: ADB) 706-2 Basophils/100 leukocytes in Blood by Automated count N 1.0 % 0.2 % - 1.0 % January 01, 2025 10:44:00 AM UTC (TECH: ADB) 72602-0 Immature granulocytes/100 leukocytes in Blood by Automated count N 0.5 % 0.0 % - 0.8 % January 01, 2025 10:44:00 AM UTC (TECH: ADB) 77877-5 Nucleated cells [#/volume] in Blood N 0.0 % January 01, 2025 10:44:00 AM UTC (TECH: ADB) 56812-4 Neutrophils [#/volume] in Blood N 4.4 K/uL 2.2 K/uL - 4.8 K/uL January 01, 2025 10:44:00 AM UTC (TECH: ADB) 731-0 Lymphocytes [#/volume] in Blood by Automated count L 0.6 CELL/MCL 1.3 CELL/MCL - 2.9 CELL/MCL January 01, 2025 10:44:00 AM UTC (TECH: ADB) 742-7 Monocytes [#/volume] in Blood by Automated count N 0.6 CELL/MCL 0.3 CELL/MCL - 0.8 CELL/MCL January 01, 2025 10:44:00 AM UTC (TECH: ADB) 711-2 Eosinophils [#/volume] in Blood by Automated count N 0.1 CELL/MCL 0 CELL/MCL - 0.2 CELL/MCL January 01, 2025 10:44:00 AM UTC (TECH: ADB) 704-7 Basophils [#/volume] in Blood by Automated count N 0.1 CELL/MCL 0.0 CELL/MCL - 1.0 CELL/MCL January 01, 2025 10:44:00 AM UTC (TECH: ADB) 70581-2 Immature granulocytes [#/volume] in Blood N 0.03 K/ul January 01, 2025 10:44:00 AM UTC (TECH: ADB) 67639-8 Nucleated cells [#/volume] in Blood N 0.00 K/uL January 01, 2025 10:44:00 AM [place] (TECH: ADB) 51011-8 Manual Differential panel - Blood N NO January 01, 2025 10:44:00 AM UT (TECH: ADB) ORDER 6600: COMP METABOLIC P STEPHENIE (LOINC: 34164-7) ORDER DATE: January 01, 2025 2:59:00 AM UT Specimen Source: PLASMA Specimen Type: Plasma specim en PERFORMING LAB: [address] [id number] Result Comment: Final Result Date: January 01, 2025 10:43:00 AM UT (TECH: ARR) LOINC TEST FLAG RESULT REFERENCE RANGE UPDA DREW BY 2951-2 Sodium [Moles/volume ] in Serum or Plasma N 139 mmol/L 136 mmol/L - 145 mmol/L January 01, 2025 10:43:00 AM UTC (TECH: ARR) 2823-3 Potassium [Moles/volume] in Serum or Plasma N 3.8 mmol/L 3.6 mmol/L - 5.0 mmol/L January 01, 2025 10:43:00 AM UT (TECH: ARR) 2075-0 Chloride [Moles/volu me] in Serum or Plasma N 103 mmol/L 98 mmol/L - 107 mmol/L January 01, 2025 10:43:00 AM UTC (TECH: ARR) 2027-9 Carbon dioxide, tota l [Moles/volume] in Serum or Plasma N 28.6 mmol/L 21.0 mmol/L - 32.0 mmol/L January 01, 2025 10:43:00 AM UTC (TECH: ARR) 90412-9 Anion gap in Blood N 11.2 J 2024 10:43:00 AM UTC (TECH: ARR) 2345-7 Glucose [Mass/volume ] in Serum or Plasma N 72 mg/dl 70 mg/dl - 120 mg/dl January 01, 2025 10:43:00 AM UTC (TECH: ARR) 6299-2 Urea nitrogen [Mass/volume] in Blood H 29 mg/dL 7 mg/dL - 18 mg/dL January 01, 2025 10:43:00 AM UT (TECH: ARR) 31585-1 Creatinine [Moles/volume] in Blood HH 4.7 mg/dL 0.6 mg/dL - 1.3 mg/dL January 01, 2025 10:43:00 AM UT (TECH: ARR) 02635-3 Glomerular filtratio n rate/1.73 sq M.predicted by Creatinine-based formula (MDRD) L 10 mlpermin 60 mlpermin January 01, 2025 10:43:00 AM UT (TECH: ARR) 11145-0 Osmolality of Serum or Plasma by calculated by sum of electrolytes N 294 mosm/kg 275 mosm/kg - 301 mosm/kg January 01, 2025 10:43:00 AM UTC (TECH: ARR) 2885-2 Protein [Mass/volume ] in Serum or Plasma L 5.9 g/dl 6.4 g/dl - 8.2 g/dl January 01, 2025 10:43:00 AM UTC (TECH: ARR) 1751-7 Albumin [Mass/volume ] in Serum or Plasma L 2.4 g/dl 3.4 g/dl - 5.0 g/dl January 01, 2025 10:43:00 AM UTC (TECH: ARR) 2336-6 Globulin [Mass/volum e] in Serum N 3.5 January 01, 2025 10:43:00 AM UTC (TECH: ARR) 1759-0 Albumin/Globulin [Ma ss Ratio] in Serum or Plasma N 0.7 0.7 - 2 January 01, 2025 10:43:00 AM UT (TECH: ARR) 23184-3 Calcium [Mass/volume ] in Serum or Plasma N 8.7 mg/dl 8.5 mg/dl - 10.5 mg/dl January 01, 2025 10:43:00 AM UT (TECH: ARR) 1975-2 Bilirubin.total [Mass/volume] in Serum or Plasma N 0.30 mg/dL 0.10 mg/dL - 1.00 mg/dL January 01, 2025 10:43:00 AM UT (TECH: ARR) 1920-8 Aspartate aminotransferase [Enzymatic activity/volume] in Serum or Plasma N 14 U/L 0 U/L - 37 U/L January 01, 2025 10:43:00 AM UT (TECH: ARR) 1742-6 Alanine aminotransferase [Enzymatic activity/volume] in Serum or Plasma N 12 U/L 0 U/L - 65 U/L January 01, 2025 10:43:00 AM UT (TECH: ARR) 6768-6 Alkaline phosphatase [Enzymatic activity/volume] in Serum or Plasma N 76 U/L 46 U/L - 116 U/L January 01, 2025 10:43:00 AM UT (TECH: ARR) ORDER 7300: CBC AUTO W DIFF (LOINC: 89105-9) ORDER DATE: January 01, 2025 10:09:00 PM UT Specimen Source: EDTA Specimen Type: Blood specime n with EDTA PERFORMING LAB: [address] [id number] Result Comment: Final Result Date: January 02, 2025 10:24:00 AM UT (TECH: KB2) LOINC TEST FLAG RESULT REFERENCE RANGE UPDA DREW BY 6690-2 Leukocytes [#/volume] in Blood by Automated count N 5.8 K/ul 4.0 K/ul - 10.5 K/ul January 02, 2025 10:24:00 AM UT (TECH: KB2) 789-8 Erythrocytes [#/volume] in Blood by Automated count L 2.9 M/mm3 4.2 M/mm3 - 6.4 M/mm3 January 02, 2025 10:24:00 AM UT (TECH: KB2) 718-7 Hemoglobin [Mass/volume] in Blood L 8.0 gm/dl 12.5 gm/dl - 16.0 gm/dl January 02, 2025 10:24:00 AM UTC (TECH: [employer]) 28067-6 Hematocrit [Volume Fraction] of Blood L 26.5 % 37.0 % - 47.0 % January 02, 2025 10:24:00 AM UTC (TECH: [employer]) 787-2 Erythrocyte mean corpuscular volume [Entitic volume] by Automated count N 91.1 fl 78 fl - 100 fl January 02, 2025 10:24:00 AM UTC (TECH: [employer]) 785-6 Erythrocyte mean corpuscular hemoglobin [Entitic mass] by Automated count N 27.5 pg 27 pg - 31 pg January 02, 2025 10:24:00 AM UTC (TECH: [employer]) 786-4 Erythrocyte mean corpuscular hemoglobin concentration [Mass/volume] by Automated count L 30.2 g/dl 32 g/dl - 36 g/dl January 02, 2025 10:24:00 AM UTC (TECH: [employer]) 97940-5 Erythrocyte distribution width [Ratio] H 16.4 % 11.5 % - 14.0 % January 02, 2025 10:24:00 AM UTC (TECH: KB2) 777-3 Platelets [#/volume] in Blood by Automated count L 143 K/ul 150 K/ul - 450 K/ul January 02, 2025 10:24:00 AM UTC (TECH: [employer]) 81525-8 Platelet mean volume [Entitic volume] in Blood by Automated count H 10.1 fl 6 fl - 9.5 fl January 02, 2025 10:24:00 AM UTC (TECH: KB2) 40167-3 Neutrophils/100 leukocytes in Blood H 73.8 % 43 % - 65 % January 02, 2025 10:24:00 AM UTC (TECH: KB2) 736-9 Lymphocytes/100 leukocytes in Blood by Automated count L 12.3 % 20.5 % - 45.5 % January 02, 2025 10:24:00 AM UTC (TECH: KB2) 5905-5 Monocytes/100 leukocytes in Blood by Automated count N 10.6 % 5.5 % - 11.7 % January 02, 2025 10:24:00 AM UTC (TECH: KB2) 713-8 Eosinophils/100 leukocytes in Blood by Automated count N 1.9 % 0.9 % - 2.9 % January 02, 2025 10:24:00 AM UTC (TECH: KB2) 706-2 Basophils/100 leukocytes in Blood by Automated count N 0.7 % 0.2 % - 1.0 % January 02, 2025 10:24:00 AM UTC (TECH: KB2) 63968-7 Immature granulocytes/100 leukocytes in Blood by Automated count N 0.7 % 0.0 % - 0.8 % January 02, 2025 10:24:00 AM UTC (TECH: KB2) 71594-5 Nucleated cells [#/volume] in Blood N 0.0 % January 02, 2025 10:24:00 AM UTC (TECH: KB2) 26144-8 Neutrophils [#/volume] in Blood N 4.3 K/uL 2.2 K/uL - 4.8 K/uL January 02, 2025 10:24:00 AM UTC (TECH: KB2) 731-0 Lymphocytes [#/volume] in Blood by Automated count L 0.7 CELL/MCL 1.3 CELL/MCL - 2.9 CELL/MCL January 02, 2025 10:24:00 AM UTC (TECH: KB2) 742-7 Monocytes [#/volume] in Blood by Automated count N 0.6 CELL/MCL 0.3 CELL/MCL - 0.8 CELL/MCL January 02, 2025 10:24:00 AM UTC (TECH: KB2) 711-2 Eosinophils [#/volume] in Blood by Automated count N 0.1 CELL/MCL 0 CELL/MCL - 0.2 CELL/MCL January 02, 2025 10:24:00 AM UTC (TECH: KB2) 704-7 Basophils [#/volume] in Blood by Automated count N 0.0 CELL/MCL 0.0 CELL/MCL - 1.0 CELL/MCL January 02, 2025 10:24:00 AM UTC (TECH: KB2) 96886-3 Immature granulocytes [#/volume] in Blood N 0.04 K/ul January 02, 2025 10:24:00 AM UTC (TECH: KB2) 54470-9 Nucleated cells [#/volume] in Blood N 0.00 K/uL January 02, 2025 10:24:00 AM UT (TECH: [employer]) 07652-2 Manual Differential panel - Blood N NO January 02, 2025 10:24:00 AM [facility] (TECH: [employer]ouchsurfing) ORDER 7400: COMP METABOLIC P STEPHENIE (LOINC: 83404-1) ORDER DATE: January 01, 2025 10:09:00 PM UT Specimen Source: PLASMA Specimen Type: Plasma specim en PERFORMING LAB: [address] [id number] Result Comment: Final Result Date: January 02, 2025 10:43:00 AM [facility] (TECH: [employer]) LOINC TEST FLAG RESULT REFERENCE RANGE UPDA DREW BY 2951-2 Sodium [Moles/volume ] in Serum or Plasma N 136 mmol/L 136 mmol/L - 145 mmol/L January 02, 2025 10:43:00 AM [facility] (TECH: [employer]) 2823-3 Potassium [Moles/volume] in Serum or Plasma N 4.1 mmol/L 3.6 mmol/L - 5.0 mmol/L January 02, 2025 10:43:00 AM UT (TECH: [employer]) 5-0 Chloride [Moles/volu me] in Serum or Plasma N 101 mmol/L 98 mmol/L - 107 mmol/L January 02, 2025 10:43:00 AM [facility] (TECH: [employer]) 2027-9 Carbon dioxide, tota l [Moles/volume] in Serum or Plasma N 27.1 mmol/L 21.0 mmol/L - 32.0 mmol/L January 02, 2025 10:43:00 AM UT (TECH: [employer]) 33754-4 Anion gap in Blood N 12.0 J 2024 10:43:00 AM UT (TECH: [employer]) 2345-7 Glucose [Mass/volume ] in Serum or Plasma N 84 mg/dl 70 mg/dl - 120 mg/dl January 02, 2025 10:43:00 AM [facility] (TECH: [employer]) 5899-2 Urea nitrogen [Mass/volume] in Blood H 37 mg/dL 7 mg/dL - 18 mg/dL January 02, 2025 10:43:00 AM [facility] ([employer]: [employer]) 76426-1 Creatinine [Moles/volume] in Blood HH 6.1 mg/dL 0.6 mg/dL - 1.3 mg/dL January 02, 2025 10:43:00 AM [facility] ([employer]: [employer]) 64867-5 Glomerular filtratio n rate/1.73 sq M.predicted by Creatinine-based formula (MDRD) L 7 mlpermin 60 mlpermin January 02, 2025 10:43:00 AM [facility] (TECH: [employer]) 08864-0 Osmolality of Serum or Plasma by calculated by sum of electrolytes N 291 mosm/kg 275 mosm/kg - 301 mosm/kg January 02, 2025 10:43:00 AM [facility] [employer]: [employer]) 2885-2 Protein [Mass/volume ] in Serum or Plasma L 6.1 g/dl 6.4 g/dl - 8.2 g/dl January 02, 2025 10:43:00 AM [facility] (TECH: [employer]) 1751-7 Albumin [Mass/volume ] in Serum or Plasma L 2.5 g/dl 3.4 g/dl - 5.0 g/dl January 02, 2025 10:43:00 AM [facility] (TECH: [employer]) 2336-6 Globulin [Mass/volum e] in Serum N 3.6 January 02, 2025 10:43:00 AM [facility] (TECH: [employer]) 1759-0 Albumin/Globulin [Ma ss Ratio] in Serum or Plasma N 0.7 0.7 - 2 January 02, 2025 10:43:00 AM [facility] ([employer]: [employer]) 40776-9 Calcium [Mass/volume ] in Serum or Plasma N 8.7 mg/dl 8.5 mg/dl - 10.5 mg/dl January 02, 2025 10:43:00 AM [facility] (TECH: [employer]) 1975-2 Bilirubin.total [Mass/volume] in Serum or Plasma N 0.40 mg/dL 0.10 mg/dL - 1.00 mg/dL January 02, 2025 10:43:00 AM [facility] (TECH: [employer]) 1920-8 Aspartate aminotransferase [Enzymatic activity/volume] in Serum or Plasma N 13 U/L 0 U/L - 37 U/L January 02, 2025 10:43:00 AM UTC (TECH: [employer]) 1742-6 Alanine aminotransferase [Enzymatic activity/volume] in Serum or Plasma N 10 U/L 0 U/L - 65 U/L January 02, 2025 10:43:00 AM UTC (TECH: KB2) 6768-6 Alkaline phosphatase [Enzymatic activity/volume] in Serum or Plasma N 77 U/L 46 U/L - 116 U/L January 02, 2025 10:43:00 AM UTC (TECH: KB2) ORDER 8700: CBC AUTO W DIFF (LOINC: 08660-2) ORDER DATE: January 03, 2025 1:14:00 PM UTC Specimen Source: EDTA Specimen Type: Blood specime n with EDTA PERFORMING LAB: [address] [id number] Result Comment: Final Result Date: January 03, 2025 1:41:00 PM UT (TECH: JNJ) LOINC TEST FLAG RESULT REFERENCE RANGE UPDA DREW BY 6690-2 Leukocytes [#/volume] in Blood by Automated count N 6.1 K/ul 4.0 K/ul - 10.5 K/ul January 03, 2025 1:41:00 PM UTC (TECH: [facility] ([facility]J) 789-8 Erythrocytes [#/volume] in Blood by Automated count L 3.0 M/mm3 4.2 M/mm3 - 6.4 M/mm3 January 03, 2025 1:41:00 PM UTC (TECH: [facility] ([facility]J) 718-7 Hemoglobin [Mass/volume] in Blood L 8.3 gm/dl 12.5 gm/dl - 16.0 gm/dl January 03, 2025 1:41:00 PM UTC (TECH: [facility] ([facility]J) 26168-1 Hematocrit [Volume Fraction] of Blood L 27.1 % 37.0 % - 47.0 % January 03, 2025 1:41:00 PM UTC (TECH: JNJ) 787-2 Erythrocyte mean corpuscular volume [Entitic volume] by Automated count N 90.0 fl 78 fl - 100 fl January 03, 2025 1:41:00 PM UTC (TECH: JNJ) 785-6 Erythrocyte mean corpuscular hemoglobin [Entitic mass] by Automated count N 27.6 pg 27 pg - 31 pg January 03, 2025 1:41:00 PM UTC (TECH: [employer]) 786-4 Erythrocyte mean corpuscular hemoglobin concentration [Mass/volume] by Automated count L 30.6 g/dl 32 g/dl - 36 g/dl January 03, 2025 1:41:00 PM UTC (TECH: [employer]) 84970-5 Erythrocyte distribution width [Ratio] H 16.5 % 11.5 % - 14.0 % January 03, 2025 1:41:00 PM UTC (TECH: [employer]) 777-3 Platelets [#/volume] in Blood by Automated count L 144 K/ul 150 K/ul - 450 K/ul January 03, 2025 1:41:00 PM UTC (TECH: [employer]) 04335-2 Platelet mean volume [Entitic volume] in Blood by Automated count H 10.3 fl 6 fl - 9.5 fl January 03, 2025 1:41:00 PM UTC (TECH: [employer]) 83079-2 Neutrophils/100 leukocytes in Blood H 78.0 % 43 % - 65 % January 03, 2025 1:41:00 PM UTC (TECH: [employer]) 736-9 Lymphocytes/100 leukocytes in Blood by Automated count L 11.4 % 20.5 % - 45.5 % January 03, 2025 1:41:00 PM UTC (TECH: [employer]) 5905-5 Monocytes/100 leukocytes in Blood by Automated count N 7.6 % 5.5 % - 11.7 % January 03, 2025 1:41:00 PM UTC (TECH: [employer]) 713-8 Eosinophils/100 leukocytes in Blood by Automated count N 1.7 % 0.9 % - 2.9 % January 03, 2025 1:41:00 PM UTC (TECH: [employer]) 706-2 Basophils/100 leukocytes in Blood by Automated count N 0.8 % 0.2 % - 1.0 % January 03, 2025 1:41:00 PM UTC (TECH: [employer]) 90163-3 Immature granulocytes/100 leukocytes in Blood by Automated count N 0.5 % 0.0 % - 0.8 % January 03, 2025 1:41:00 PM UTC (TECH: [employer]) 99093-5 Nucleated cells [#/volume] in Blood N 0.0 % January 03, 2025 1:41:00 PM UTC (TECH: [employer]) 53813-0 Neutrophils [#/volume] in Blood N 4.7 K/uL 2.2 K/uL - 4.8 K/uL January 03, 2025 1:41:00 PM UTC (TECH: [employer]) 731-0 Lymphocytes [#/volume] in Blood by Automated count L 0.7 CELL/MCL 1.3 CELL/MCL - 2.9 CELL/MCL January 03, 2025 1:41:00 PM UTC (TECH: [employer]) 742-7 Monocytes [#/volume] in Blood by Automated count N 0.5 CELL/MCL 0.3 CELL/MCL - 0.8 CELL/MCL January 03, 2025 1:41:00 PM UTC (TECH: [employer]) 711-2 Eosinophils [#/volume] in Blood by Automated count N 0.1 CELL/MCL 0 CELL/MCL - 0.2 CELL/MCL January 03, 2025 1:41:00 PM UTC (TECH: [employer]) 704-7 Basophils [#/volume] in Blood by Automated count N 0.1 CELL/MCL 0.0 CELL/MCL - 1.0 CELL/MCL January 03, 2025 1:41:00 PM UTC (TECH: [employer]) 75164-7 Immature granulocytes [#/volume] in Blood N 0.03 K/ul January 03, 2025 1:41:00 PM UTC (TECH: [employer]) 02901-1 Nucleated cells [#/volume] in Blood N 0.00 K/uL January 03, 2025 1:41:00 PM [place] (TECH: [employer]) 64496-0 Manual Differential panel - Blood N NO January 03, 2025 1:41:00 PM UTC (TECH: [employer]) ORDER 8800: COMP METABOLIC P STEPHENIE (LOINC: 47354-3) ORDER DATE: January 03, 2025 1:14:00 PM UTC Specimen Source: PLASMA Specimen Type: Plasma specim en PERFORMING LAB: [address] [id number] Result Comment: Final Result Date: January 03, 2025 2:38:00 PM UT (TECH: [employer]) LOINC TEST FLAG RESULT REFERENCE RANGE UPDA DREW BY 2951-2 Sodium [Moles/volume ] in Serum or Plasma L 134 mmol/L 136 mmol/L - 145 mmol/L January 03, 2025 2:38:00 PM UTC (TECH: [employer]) 2823-3 Potassium [Moles/vol ume] in Serum or Plasma N 3.8 mmol/L 3.6 mmol/L - 5.0 mmol/L January 03, 2025 2:38:00 PM UTC (TECH: [employer]) 5-0 Chloride [Moles/volu me] in Serum or Plasma N 99 mmol/L 98 mmol/L - 107 mmol/L January 03, 2025 2:38:00 PM UTC (TECH: [employer]) 2027-9 Carbon dioxide, tota l [Moles/volume] in Serum or Plasma N 25.5 mmol/L 21.0 mmol/L - 32.0 mmol/L January 03, 2025 2:38:00 PM UTC (TECH: [employer]) 13638-3 Anion gap in Blood N 13.3 J 2024 2:38:00 PM UTC (TECH: [employer]) 2345-7 Glucose [Mass/volume ] in Serum or Plasma H 124 mg/dl 70 mg/dl - 120 mg/dl January 03, 2025 2:38:00 PM UTC (TECH: [employer]) 6299-2 Urea nitrogen [Mass/volume] in Blood H 29 mg/dL 7 mg/dL - 18 mg/dL December 2:38:00 PM UTC (TECH: [employer]) 36229-5 Creatinine [Moles/vo lume] in Blood HH 4.9 mg/dL 0.6 mg/dL - 1.3 mg/dL January 03, 2025 2:38:00 PM UTC (TECH: [employer]) 40073-4 Glomerular filtratio n rate/1.73 sq M.predicted by Creatinine-based formula (MDRD) L 10 mlpermin 60 mlpermin January 03, 2025 2:38:00 PM UT (TECH: [employer]) 35483-1 Osmolality of Serum or Plasma by calculated by sum of electrolytes N 286 mosm/kg 275 mosm/kg - 301 mosm/kg January 03, 2025 2:38:00 PM UT (TECH: [employer]) 2885-2 Protein [Mass/volume ] in Serum or Plasma L 6.2 g/dl 6.4 g/dl - 8.2 g/dl January 03, 2025 2:38:00 PM UT (TECH: [employer]) 1751-7 Albumin [Mass/volume ] in Serum or Plasma L 2.3 g/dl 3.4 g/dl - 5.0 g/dl January 03, 2025 2:38:00 PM UT (TECH: [employer]) 2336-6 Globulin [Mass/volum e] in Serum N 3.9 January 03, 2025 2:38:00 PM UT (TECH: [employer]) 1759-0 Albumin/Globulin [Ma ss Ratio] in Serum or Plasma L 0.6 0.7 - 2 December 2:38:00 PM UT (TECH: [employer]) 18192-3 Calcium [Mass/volume ] in Serum or Plasma N 8.9 mg/dl 8.5 mg/dl - 10.5 mg/dl January 03, 2025 2:38:00 PM UT (TECH: [employer]) 1975-2 Bilirubin.total [Mass/volume] in Serum or Plasma N 0.30 mg/dL 0.10 mg/dL - 1.00 mg/dL January 03, 2025 2:38:00 PM UT (TECH: [employer]) 1920-8 Aspartate aminotrans ferase [Enzymatic activity/volume] in Serum or Plasma N 14 U/L 0 U/L - 37 U/L January 03, 2025 2:38:00 PM UT (TECH: [employer]) 1742-6 Alanine aminotransfe rase [Enzymatic activity/volume] in Serum or Plasma N 12 U/L 0 U/L - 65 U/L January 03, 2025 2:38:00 PM UT (TECH: [employer]) 6768-6 Alkaline phosphatase [Enzymatic activity/volume] in Serum or Plasma N 80 U/L 46 U/L - 116 U/L January 03, 2025 2:38:00 PM [facility] (TECH: [employer]) LABORATORY NARRATIVE RESULTS Information is not available RADIOLOGY RESULTS ORDER 1900: CHEST PORTABLE ( LOINC: 24901-2) ORDER DATE: December 28, 2024 9:56:00 PM [place] PERFORMING LAB: [address] [id number] Final Result Date: December 28 10:43:33 PM [facility] l [address] [place] [address] Name: DIVYA BROWN Exam Date: 12/28/2024 : 1965 Age 59 years Gender: F Physician: BROCK ALLEN Facility: [facility] Facility HSV: Inpatient Exam: CHEST PORTABLE FINAL REPORT TECHNIQUE: null CLINICAL HISTORY: ahrf COMPARISON: null FINDINGS: 1 view chest x-ray Comparison: None Findings: There is enlargement of the cardiopericardial silhouette. Cardiac valve repair.There is increase of interstitial lung markings. Limited evaluation of the left lung base. Mild opacity of the right lung base. No acute fracture. IMPRESSION: IMPRESSION: Cardiomegaly with pulmonary vascular congestion. Mild atelectasis/infiltrate of the right lung base. Authenticated and [facility] Dictated By: Lucita Bueno Transcribed By: Transcribed On: 12/28/2024 6:43 PM Electronically signed by: Lucita Bueno 12/28/2024 Thank you for referring DIVYA BROWN to [facility]. Legally authenticated by CALDERON BROWER 2024-12-28 18:43:33 ORDER 3500: US RENAL DOPPLER (LOINC: 61302-9) ORDER DATE: December 29, 2024 4:09:00 AM [facility] PERFORMING LAB: [address] [id number] Final Result Date: December 29 6:10:40 [place] [address] Name: DIVYA BROWN Exam Date: 12/29/2024 : 1965 Age 59 years Gender: F Physician: Ellis Sagastume Facility: [facility] Facility HSV: Inpatient Exam: US RENAL DOPPLER Renal artery ultrasound Doppler HISTORY: Hypertension COMPARISON: None available TECHNIQUE: B-mode, color and pulse Doppler was used. FINDINGS: Right side Right kidney measures 9 x 3.2 x 4 cm. No stone mass or hydronephrosis seen. Peak systolic velocity in the right superior arcuate artery 25 cm/s RI 0.64. Peak systolic velocity in the mid arcuate artery 27 cm/s RI 0.78 Peak systolic velocity inferior articular artery 18 cm/s RI 0.5. Peak systolic velocity in the proximal right renal artery 28 cm/s RI 0.66 Peak systolic velocity proximal right renal artery 22 cm/s RI 0.65. Left side Left kidney measures 9 x 4.8 x 4 cm. No stone mass or hydronephrosis. Peak systolic velocity left superior arcuate artery 17 cm/s RI 0.75 Peak systolic velocity mid left arcuate artery 23 cm/s RI 0.66 Peak systolic velocity anterior articular artery 18 cm/s RI 0.6. Peak systolic velocity in the distal renal artery is 16 cm/s RI 0.76. Peak systolic velocity mid renal artery 14 cm/s RI 0.7 Peak systolic velocity proximal renal artery 19 cm/s RI 0.84. Peak systolic velocity aorta 22 cm/s. Normal waveform. IMPRESSION: No hemodynamic stenosis in the renal arteries detected. Electronically signed by: Christopher Chou MD 12/29/2024 02:10 PM EDT Dictated By: Christopher Chou Transcribed By: Transcribed On: 12/29/2024 2:10 PM Electronically signed by: Christopher Chou 12/29/2024 Thank you for referring DIVYA BROWN to [facility]. Legally authenticated by DANIAL TALAVERA 2024-12-29 14:10:40 ORDER [id number]: CT BRAIN W/O ( INC: [id number]) ORDER DATE: December 31, 2024 12:29:00 PM [facility] PERFORMING LAB: [address] [id number] Final Result Date: December 31 1:36:38 PM [facility] [address] [address] Name: DIVYA BROWN Exam Date: 12/31/2024 : 1965 Age 59 years Gender: F Physician: BROCK ALLEN Facility: [facility] Facility HSV: Inpatient Exam: CT BRAIN W/O EXAM: CT HEAD WITHOUT IV CONTRAST INDICATION: GLF. Fell this am, hit back of head. No LOC. TECHNIQUE: CT of the head was performed without IV contrast. This examination was performed using one or more of the following dose reduction techniques; automated exposure control; adjustment of the Ma and Kv according to patient size; iterative reconstruction technique. Unless specified, no imaging follow-up is recommended for incidental findings. COMPARISON: No prior study was submitted for comparison. FINDINGS: No midline shift, mass effect or acute intracranial hemorrhage. No evidence for acute hydrocephalus. No obvious acute cerebral or cerebellar edema. Mild bilateral periventricular cerebral white matter hypoattenuation. Appearance of some volume loss in the left parietal-occipital region. No obvious orbital abnormality. The visualized portions of the paranasal sinuses and mastoid air cells are clear. No obvious acute skull base or calvarial abnormality. IMPRESSION: 1. No acute intracranial hemorrhage or mass effect. No obvious acute ischemic infarct. There appears to be some volume loss in the left parietal-occipital region that may represent sequela of remote ischemic infarct. 2. Mild bilateral periventricular cerebral white matter hypoattenuation which is nonspecific but most commonly seen in the setting of chronic small vessel ischemic disease. RECOMMENDATION:The need for additional imaging evaluation with MRI should be determined clinically. Electronically signed by: Pedro Segovia DO 12/31/2024 09:36 AM EDT Dictated By: Pedro Segovia Transcribed By: Transcribed On: 12/31/2024 9:36 AM Electronically signed by: Pedro Segovia 12/31/2024 Thank you for referring DIVYA BROWN to [facility]. Legally authenticated by BRANDY MOTA 2024-12-31 09:36:38 PATHOLOGY NARRATIVE RESULTS Information is not available MICROBIOLOGY RESULTS No Micro Labs/Results Exist for Patient BLOOD ADMIN RESULTS Information is not available TREATMENT PLAN DISCHARGE MEDICATIONS Status RXNORM Medication Dose Route Frequency Dates Comments U pdated By [facility] [id number] Melatonin ER Oral Tablet Extended Release 10 MG 10 ORAL AT BEDTIME Prescr ibed: January 03, 2025 2:16:4 1 PM UT [id number] on January 03, 2025 2:16:41 PM UT Continued [id number] ergocalciferol (VITAMIN D) 45089 UNIT 14910 UNT ORAL ONCE EACH WEEK Prescr ibed: January 03, 2025 2:16:4 1 PM UT [id number] on January 03, 2025 2:16:41 PM UT Continued 044416 Budesonide Inhalation Suspension 1 MG/2ML 0.5 MG INHALED TWICE A DAY Prescr ibed: January 03, 2025 2:16:4 1 PM UT [id number] on January 03, 2025 2:16:41 PM UT Continued 312084 Sertraline HCl Oral Tablet 100 MG 100 ORAL ONCE DAILY Prescr ibed: January 03, 2025 2:16:4 1 PM UT [id number] on January 03, 2025 2:16:41 PM UT Continued 115793 Ferrous Sulfate Oral Tablet 325 (65 Fe) MG 325 ORAL ONCE DAILY Prescr ibed: January 03, 2025 2:16:4 1 PM UT [id number] on January 03, 2025 2:16:41 PM UT Continued 6629010 Albuterol Sulfate HFA Inhalation Aerosol Solution 108 (90 Base) MCG/ACT 8.5 GM INHALED EVERY SIX HOURS NEEDED Prescr ibed: January 03, 2025 2:16:4 1 PM UT [id number] on January 03, 2025 2:16:41 PM UT Continued 568068 traZODone HCl Oral Tablet 50 MG 50 ORAL AT BEDTIME Prescr ibed: January 03, 2025 2:16:4 1 PM UT [id number] on January 03, 2025 2:16:41 PM UT Continued 666143 Carvedilol Oral Tablet 25 MG 12.5 MG ORAL TWICE A DAY Prescr ibed: January 03, 2025 2:16:4 1 PM UT [id number] on January 03, 2025 2:16:41 PM UT Continued 282706 Lipitor Oral Tablet 40 MG 40 ORAL AT BEDTIME Prescr ibed: January 03, 2025 2:16:4 1 PM UT [id number] on January 03, 2025 2:16:41 PM UT Continued 8075452 Budesonide-Formo terol Fumarate Inhalation Aerosol 160-4.5 MCG/ACT 10.2 INHALED TWICE A DAY Prescr ibed: January 03, 2025 2:16:4 1 PM UT [id number] on January 03, 2025 2:16:41 PM UT Continued 862741 Gabapentin Oral Capsule 300 MG 300 MG ORAL AT BEDTIME Prescr ibed: January 03, 2025 2:16:4 1 PM UT [id number] on January 03, 2025 2:16:41 PM UT Continued 735353 Famotidine Oral Tablet 20 MG 20 ORAL AT BEDTIME Prescr ibed: January 03, 2025 2:16:4 1 PM UT [id number] on January 03, 2025 2:16:41 PM UT Continued 942825 hydrALAZINE HCl Oral Tablet 100 MG 100 ORAL THREE TIMES A DAY Prescr ibed: January 03, 2025 2:16:4 1 PM UT [id number] on January 03, 2025 2:16:41 PM UT Continued 408156 MiraLax Mix-In [place] Oral Packet 17 GM 17 GM ORAL ONCE DAILY Prescr ibed: January 03, 2025 2:16:4 1 PM UT [id number] on January 03, 2025 2:16:41 PM UT Continued cyanocobalamin 50 MCG ORAL ONCE DAILY Pres cr ibed: January 03, 2025 2:16:4 1 PM UT [id number] on January 03, 2025 2:16:41 PM UT Continued 787173 Aspirin 81 Oral Tablet Delayed Release 81 MG 81 ORAL ONCE DAILY Prescr ibed: January 03, 2025 2:16:4 1 PM UT [id number] on January 03, 2025 2:16:41 PM UT Continued 8889268 oxyCODONE HCl Oral Capsule 5 MG 5 MG ORAL EVERY SIX HOURS NEEDED Prescr ibed: January 03, 2025 2:16:4 1 PM UT [id number] on January 03, 2025 2:16:41 PM UT Continued 2008011 Ipratropium-Albu terol Inhalation Solution 0.5-2.5 (3) MG/3ML 3 ML INHALED EVERY SIX HOURS Prescr ibed: January 03, 2025 2:16:4 1 PM UT [id number] on January 03, 2025 2:16:41 PM UT Continued 242025 Sodium Bicarbonate Oral Tablet 650 MG 650 ORAL THREE TIMES A DAY Prescr ibed: January 03, 2025 2:16:4 1 PM UT [id number] on January 03, 2025 2:16:41 PM UT Continued 796306 Isosorbide Mononitrate ER Oral Tablet Extended Release 24 Hour 60 MG 60 ORAL ONCE DAILY Prescr ibed: January 03, 2025 2:16:4 1 PM UT [id number] on January 03, 2025 2:16:41 PM UTC Continued Multivitamin Adult Oral Tablet 1 TAB ORAL ONCE DAILY Prescr ibed: January 03, 2025 2:16:4 1 PM UT [id number] on January 03, 2025 2:16:41 PM UT Continued 021316 Sevelamer Carbonate Oral Tablet 800 MG 800 ORAL THREE TIMES A DAY Prescr ibed: January 03, 2025 2:16:4 1 PM UT [id number] on January 03, 2025 2:16:41 PM UT Continued 723461 Torsemide Oral Tablet 20 MG 20 ORAL ONCE DAILY Prescr ibed: January 03, 2025 2:16:4 1 PM UT [id number] on January 03, 2025 2:16:41 PM [facility] PATIENT OPEN ORDERS Code System Description Frequency Occurrences Priority [place] [address]-4 [facility] Transthoracic cardiac echo study report US ONE TIME 0 Routine December 29, 2024 10:42: 00 AM UT TIFFANY Cisneros [id number] on December 29, 2024 1:36:00 PM [facility] SCHEDULED PROCEDURES Code System Description Status Scheduled Date Upd ated By Patient scheduled procedure information is not available. HOSPITAL COURSE HOSPITAL COURSE Note Title Discharge Summary Date Of Service January 03, 2025 7:03:07 PM UTC Created By [id number] on January 03 7:03:07 PM UTC Signed By [id number] on January 04 10:32:57 AM UT #Fluid overload secondary to noncompliance with hemodialysis#End-stage renal disease-reported CHF with unknown LVEF, check echocardiogram-off of dialysis since April 2024-has CRYSTALE AVF-nephrology consulted-resume home torsemide, sevelamer, sodium hmzucd-dqaunsmbu-C and tuberculosis screening ordered- 12/30: HD resumed on 12/29, tolerated well.- 12/31: HD today. Discussed with CM, working on chair placement for outpatient HD. Still requiring 6L NC. -01/01: HD tomorrow. Oxygen requirements, down to 3 L. Discussed with case management, we will have dialysis chair set up for Saturday. Likely home over the weekend if additional dialysis session improves her respiratory status--01/02: HD today, oxygen evaluation after dialysis session. Likely discharge home tomorrow Accelerated hypertension, secondary to noncompliance w/ HD-resume home BP medications including hydralazine 100 mg t.i.d., Coreg 12.5 mg b.i.d., Imdur 60 mg daily-12/29: Improved- 12/30: BP meds being adjustedAcute hypoxic respiratory failure, likely secondary to pulmonary edema-supplemental O2 increased to 10 L today- chest x-ray with pulmonary vascular congestion, :plans for dialysis today- 12/30: s/.p HD yesterday, down to 5L NC today .-01/01: Down to 3 L nasal cannula today. May need home O2 #Anemia of chronic kidney disease-ELVIN per nephrology #Anxiety and depression-continue home sertraline MEDICATIONS HOME MEDICATIONS Status RXNORM AZC Medication Dose Route Frequency Dates Comments Reported By Updated By Active 284463 14301 71031 1 hydrALAZINE HCl Oral Tablet 100 MG 100.0 ORAL TID Last Dose: [id number] on January 03, 2025 2:14:05 PM [facility] Active 377903 75811 38034 0 Famotidine Oral Tablet 20 MG 20.0 ORAL BEDTIME Last Dose: [id number] on January 03, 2025 2:14:12 PM [facility] Active 624960 11353 19423 1 traZODone HCl Oral Tablet 50 MG 50.0 ORAL BEDTIME Last Dose: [id number] on January 03, 2025 2:11:07 PM [facility] Active 316993 44511 63104 1 Sodium Bicarbonate Oral Tablet 650 MG 650.0 ORAL TID Last Dose: [id number] on January 03, 2025 2:11:25 PM [facility] Active 394439 97275 05480 0 Lipitor Oral Tablet 40 MG 40.0 ORAL BEDTIME Last Dose: [id number] on January 03, 2025 2:09:29 PM UTC Active 601677 66080 75706 0 Gabapentin Oral Capsule 300 MG 300.0 MG ORAL BEDTIME Last Dose: [id number] on December 28, 2024 8:52:01 PM UTC Active 2936364 85555 07736 1 oxyCODONE HCl Oral Capsule 5 MG 5.0 MG ORAL Q6HPRN Last Dose: [id number] on January 03, 2025 2:08:41 PM UTC Active 6667002 37495 16537 8 Melatonin ER Oral Tablet Extended Release 10 MG 10.0 ORAL BEDTIME Last Dose: [id number] on January 03, 2025 2:08:13 PM UTC Active 430975 86897 24656 7 Sevelamer Carbonate Oral Tablet 800 MG 800.0 ORAL TID Last Dose: [id number] on January 03, 2025 2:11:44 PM UTC Active 109669 75971 51260 1 Carvedilol Oral Tablet 25 MG 12.5 MG ORAL BID Last Dose: [id number] on December 28, 2024 8:54:46 PM UT Active 12655 97741 6 Multivitamin Adult Oral Tablet 1.0 TAB ORAL DAILY Last Dose: [id number] on December 28, 2024 8:55:18 PM UTC Active 414172 85663 84774 6 MiraLax Mix-In [place] Oral Packet 17 GM 17.0 GM ORAL DAILY Last Dose: [id number] on December 28, 2024 8:55:57 PM UTC Active 75813 41719 1 Aspirin 81 Oral Tablet Delayed Release 81 MG 81.0 ORAL DAILY Last Dose: [id number] on January 03, 2025 2:14:24 PM UT Active 637283 06158 45771 1 Isosorbide Mononitrate ER Oral Tablet Extended Release 24 Hour 60 MG 60.0 ORAL DAILY Last Dose: [id number] on January 03, 2025 2:13:56 PM UTC Active 994118 42144 03289 6 Ferrous Sulfate Oral Tablet 325 (65 Fe) MG 325.0 ORAL DAILY Last Dose: [id number] on January 03, 2025 2:08:54 PM UTC Active 1332437 84170 13151 8 Albuterol Sulfate HFA Inhalation Aerosol Solution 108 (90 Base) MCG/ACT 8.5 GM INHALA TION Q6HPRN Last Dose: [id number] on January 03, 2025 2:14:40 PM [facility] Active 226102 62300 65794 7 Budesonide Inhalation Suspension 1 MG/2ML 0.5 MG INHALA TION BID Last Dose: [id number] on December 28, 2024 9:05:19 PM [facility] Active FreeT extMe d cyanocobalam in 50.0 MCG ORAL DAILY Last Dose: [id number] on December 28, 2024 9:01:36 PM [facility] Active 7868439 18282 42150 1 Ipratropium- Albuterol Inhalation Solution 0.5-2.5 (3) MG/3ML 3.0 ML INHALA TION Q6H Last Dose: [id number] on December 28, 2024 9:02:32 PM [facility] Active 858956 16152 99195 1 Torsemide Oral Tablet 20 MG 20.0 ORAL DAILY Last Dose: [id number] on January 03, 2025 2:08:20 PM [facility] Active 164813 35405 12759 5 Sertraline HCl Oral Tablet 100 MG 100.0 ORAL DAILY Last Dose: [id number] on January 03, 2025 2:16:31 PM [facility] Active 7152927 62651 95678 0 Budesonide-F ormoterol Fumarate Inhalation Aerosol 160-4.5 MCG/ACT 10.2 INHALA TION BID Last Dose: [id number] on January 03, 2025 2:08:04 PM [facility] DISCHARGE MEDICATIONS Status RXNORM [facility] Medication Dose Route Frequency Dates Comments Physician Updated By Continue d 1797252 4326 5028 028 Melatonin ER Oral Tablet Extended Release 10 MG 10.0 ORAL AT BEDTIME Prescr ibed: January 03, 2025 2:16:4 1 PM [facility] ANTONIO LEPEA PHY [id number] on January 03, 2025 2:16:41 PM [facility] Continue d 3319774 3686 2015 120 ergocalcife rol (VITAMIN D) 06445 UNIT 39742 .0 UNT ORAL ONCE EACH WEEK Prescr ibed: January 03, 2025 2:16:4 1 PM [facility] ANTONIO CHAY PHY [id number] on January 03, 2025 2:16:41 PM [facility] Continue d 457660 5317 1751 787 Budesonide Inhalation Suspension 1 MG/2ML 0.5 MG INHALE D TWICE A DAY Prescr ibed: January 03, 2025 2:16:4 1 PM UT ANTONIO LOYOLA [id number] on January 03, 2025 2:16:41 PM UTC Continue d 914761 0154 2001 305 Sertraline HCl Oral Tablet 100 MG 100.0 ORAL ONCE DAILY Prescr ibed: January 03, 2025 2:16:4 1 PM UT ANTONIO LOYOLA [id number] on January 03, 2025 2:16:41 PM UTC Continue d 929558 0805 4001 426 Ferrous Sulfate Oral Tablet 325 (65 Fe) MG 325.0 ORAL ONCE DAILY Prescr ibed: January 03, 2025 2:16:4 1 PM UT ANTONIO LOYOLA [id number] on January 03, 2025 2:16:41 PM UTC Continue d 9082113 6699 3001 968 Albuterol Sulfate HFA Inhalation Aerosol Solution 108 (90 Base) MCG/ACT 8.5 GM INHALE D EVERY SIX HOURS NEEDED Prescr ibed: January 03, 2025 2:16:4 1 PM [facility] ANTONIO LOYOLA [id number] on January 03, 2025 2:16:41 PM UTC Continue d 800744 1175 5265 301 traZODone HCl Oral Tablet 50 MG 50.0 ORAL AT BEDTIME Prescr ibed: January 03, 2025 2:16:4 1 PM [facility] ANTONIO LOYOLA [id number] on January 03, 2025 2:16:41 PM UTC Continue d 376187 5441 2008 501 Carvedilol Oral Tablet 25 MG 12.5 MG ORAL TWICE A DAY Prescr ibed: January 03, 2025 2:16:4 1 PM UT ANTONIO LOYOLA [id number] on January 03, 2025 2:16:41 PM UTC Continue d 076943 0826 1031 030 Lipitor Oral Tablet 40 MG 40.0 ORAL AT BEDTIME Prescr ibed: January 03, 2025 2:16:4 1 PM [facility] ANTONIO LOYOLA [id number] on January 03, 2025 2:16:41 PM UTC Continue d 2082216 8155 0737 020 Budesonide- Formoterol Fumarate Inhalation Aerosol 160-4.5 MCG/ACT 10.2 INHALE D TWICE A DAY Prescr ibed: January 03, 2025 2:16:4 1 PM [facility] ANTONIO LOYOLA [id number] on January 03, 2025 2:16:41 PM UTC Continue d 811629 8833 1021 230 Gabapentin Oral Capsule 300 MG 300.0 MG ORAL AT BEDTIME Prescr ibed: January 03, 2025 2:16:4 1 PM [facility] ANTONIO LOYOLA [id number] on January 03, 2025 2:16:41 PM UTC Continue d 660127 2181 2572 860 Famotidine Oral Tablet 20 MG 20.0 ORAL AT BEDTIME Prescr ibed: January 03, 2025 2:16:4 1 PM [facility] ANTONIO LOYOLA [id number] on January 03, 2025 2:16:41 PM UT Continue d 445781 8189 1039 701 hydrALAZINE HCl Oral Tablet 100 MG 100.0 ORAL THREE TIMES A DAY Prescr ibed: January 03, 2025 2:16:4 1 PM [facility] ANTONIO LOYOLA [id number] on January 03, 2025 2:16:41 PM UT Continue d 110823 7680 0080 676 MiraLax Mix-In [place] Oral Packet 17 GM 17.0 GM ORAL ONCE DAILY Prescr ibed: January 03, 2025 2:16:4 1 PM [facility] ANTONIO LOYOLA [id number] on January 03, 2025 2:16:41 PM UT Continue d Free Text Med cyanocobala min 50.0 MCG ORAL ONCE DAILY Prescr ibed: January 03, 2025 2:16:4 1 PM [facility] ANTONIO LOYOLA [id number] on January 03, 2025 2:16:41 PM UTC Continue d 187069 6826 7001 431 Aspirin 81 Oral Tablet Delayed Release 81 MG 81.0 ORAL ONCE DAILY Prescr ibed: January 03, 2025 2:16:4 1 PM [facility] ANTONIO LOYOLA [id number] on January 03, 2025 2:16:41 PM UT Continue d 2626615 2577 2002 301 oxyCODONE HCl Oral Capsule 5 MG 5.0 MG ORAL EVERY SIX HOURS NEEDED Prescr ibed: January 03, 2025 2:16:4 1 PM UT ANTONIO LOYOLA [id number] on January 03, 2025 2:16:41 PM UTC Continue d 8343482 8897 7020 101 Ipratropium -Albuterol Inhalation Solution 0.5-2.5 (3) MG/3ML 3.0 ML INHALE D EVERY SIX HOURS Prescr ibed: January 03, 2025 2:16:4 1 PM UT ANTONIO LOYOLA [id number] on January 03, 2025 2:16:41 PM UTC Continue d 730129 3882 3000 801 Sodium Bicarbonate Oral Tablet 650 MG 650.0 ORAL THREE TIMES A DAY Prescr ibed: January 03, 2025 2:16:4 1 PM [facility] ANTONIO LOYOLA [id number] on January 03, 2025 2:16:41 PM UT Continue d 943781 1671 8010 501 Isosorbide Mononitrate ER Oral Tablet Extended Release 24 Hour 60 MG 60.0 ORAL ONCE DAILY Prescr ibed: January 03, 2025 2:16:4 1 PM [facility] ANTONIO LOYOLA [id number] on January 03, 2025 2:16:41 PM UT Continue d 9629 5013 836 Multivitami n Adult Oral Tablet 1.0 TAB ORAL ONCE DAILY Prescr ibed: January 03, 2025 2:16:4 1 PM [facility] ANTONIO LOYOLA [id number] on January 03, 2025 2:16:41 PM UT Continue d 185749 9857 209 127 Sevelamer Carbonate Oral Tablet 800 MG 800.0 ORAL THREE TIMES A DAY Prescr ibed: January 03, 2025 2:16:4 1 PM UT ANTONIO LOYOLA [id number] on January 03, 2025 2:16:41 PM UT Continue d 628930 6830 1091 701 Torsemide Oral Tablet 20 MG 20.0 ORAL ONCE DAILY Prescr ibed: January 03, 2025 2:16:4 1 PM [facility] ANTONIO LOYOLA [id number] on January 03, 2025 2:16:41 PM [facility] INPATIENT MEDICATIONS Status RXNORM AZC Medication Dose Route Frequency Rat e Quantity Dates Comments Physician Updated By You inued 2149 6332 601 NOZIN NASAL [employer] 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 POPSWAB SWAB 1.0 EA NASAL TWICE A DAY Start: December 29, 2024 1:00:0 0 AM UTC End: January 03, 2025 2:16:4 1 PM UTC TIFFANYMITALI Cisneros [id number] on January 04, 2025 4:25:00 AM UTC Discont inued 0829 0306 546 sodium chloride 0.9% FLUSH 10 ML SOLN 10.0 ML INTRAV ENOUS NEEDED Start: December 28, 2024 7:53:0 0 PM UTC End: January 03, 2025 2:16:4 1 PM UTC TIFFANY Cisneros [id number] on January 04, 2025 4:25:00 AM UTC Discont inued 0737699 9663 5613 000 ondansetron (ZOFRAN) INJ 4 MG/2 ML SOLN 4.0 MG INTRAV ENOUS EVERY SIX HOURS NEEDED Start: December 28, 2024 7:53:0 0 PM UTC End: January 03, 2025 2:16:4 1 PM UTC TIFFANY Cisneros [id number] on January 04, 2025 4:25:00 AM UTC Discont inued 8884443 7483 7020 101 DUONEB 0.5-2.5 MG/3 ML SOLN 3.0 ML INHALE D EVERY SIX HOURS NEEDED (RESPIRATO RY) Start: December 28, 2024 7:53:0 0 PM UTC End: January 03, 2025 2:16:4 1 PM UTC TIFFANY Cisneros [id number] on January 04, 2025 4:25:00 AM UTC Discont inued 0335450 9547 7043 198 MIRALAX PACKET 17 GM PACK 17.0 GM ORAL ONCE DAILY NEEDED Start: December 28, 2024 7:53:0 0 PM UTC End: January 03, 2025 2:16:4 1 PM UTC TIFFANY Cisneros [id number] on January 04, 2025 4:25:00 AM UTC Discont inued 9494190 8349 3026 201 heparin sodium (PORCINE) 5000 UNIT/ML SOLN 5000. 0 UNT SUBCUT ANEOUS EVERY TWELVE HOURS Start: December 28, 2024 9:00:0 0 PM UTC End: January 03, 2025 2:16:4 1 PM UTC TIFFANY Cisneros [id number] on January 04, 2025 4:25:00 AM UTC Discont inued 0090 4673 061 acetaminoph en (TYLENOL) 500 MG TABS 1000. 0 MG ORAL EVERY SIX HOURS NEEDED Start: December 28, 2024 7:56:0 0 PM UTC End: January 03, 2025 2:16:4 1 PM UTC TIFFANY Cisneros [id number] on January 04, 2025 4:25:00 AM UTC Discont inued 857138 9590 3061 401 hydrALAZINE (APRESOLINE ) 20 MG/ML SOLN 10.0 MG INTRAV ENOUS EVERY SIX HOURS NEEDED Start: December 28, 2024 7:56:0 0 PM UTC End: January 03, 2025 2:16:4 1 PM UTC TIFFANY Cisneros [id number] on January 04, 2025 4:25:00 AM UTC Discont inued 340451 0347 8015 745 melatonin 5 MG TABS 5.0 MG ORAL AT BEDTIME NEEDED Start: December 29, 2024 1:00:0 0 AM UTC End: January 03, 2025 2:16:4 1 PM UTC TIFFANY Cisneros [id number] on January 04, 2025 4:25:00 AM UTC Discont inued 1608640 0005 9141 204 bumetanide (BUMEX) 1 MG/4 ML SOLN 2.0 MG INTRAV ENOUS GIVE ONE DOSE NOW Start: December 28, 2024 9:48:0 0 PM UTC End: December 28, 2024 9:57:3 3 PM UTC TIFFANY GUTIÉRREZ Blayne [id number] on December 28, 2024 9:57:00 PM UTC Discont inued Free Text Med cyanocobala min 50.0 MCG ORAL ONCE DAILY Start: December 29, 2024 1:00:0 0 PM UTC End: December 29, 2024 1:00:0 0 PM UTC TIFFANY Cisneros [id number] on December 28, 2024 9:58:00 PM UTC Discont inued 181526 9509 5000 401 hydrALAZINE (APRESOLINE ) 100 MG TABS 100.0 MG ORAL THREE TIMES A DAY Start: December 29, 2024 1:00:0 0 AM UTC End: January 03, 2025 2:16:4 1 PM UTC TIFFANY Cisneros [id number] on January 04, 2025 4:25:00 AM UTC Discont inued 236075 6005 2080 501 traZODone (DESYREL) 50 MG TABS 50.0 MG ORAL AT BEDTIME Start: December 29, 2024 1:00:0 0 AM UTC End: January 03, 2025 2:16:4 1 PM UTC TIFFANY Cisneros [id number] on January 04, 2025 4:25:00 AM UTC Discont inued Free Text Med MiraLax Mix-In [place] Oral Packet 17 GM 17.0 GM ORAL ONCE DAILY Start: December 29, 2024 1:00:0 0 PM UTC End: December 29, 2024 1:00:0 0 PM UTC TIFFANY Cisneros [id number] on December 28, 2024 9:59:00 PM UTC Discont inued Free Text Med Multivitami n Adult Oral Tablet 1.0 TAB ORAL ONCE DAILY Start: December 29, 2024 1:00:0 0 PM UTC End: December 29, 2024 1:00:0 0 PM UTC TFIFANY Cisneros [id number] on December 28, 2024 9:59:00 PM UTC Discont inued 645796 4236 3083 125 sodium bicarbonate 650 MG TABS 650.0 MG ORAL THREE TIMES A DAY Start: December 29, 2024 1:00:0 0 AM UTC End: January 03, 2025 2:16:4 1 PM UTC TIFFANY Cisneros [id number] on January 04, 2025 4:25:00 AM UTC Discont inued 786525 4566 2053 101 torsemide (DEMADEX) 20 MG TABS 20.0 MG ORAL ONCE DAILY Start: December 29, 2024 1:00:0 0 PM UTC End: January 03, 2025 2:16:4 1 PM UTC TIFFANY Cisneros [id number] on January 04, 2025 4:25:00 AM UTC Discont inued 098863 2457 5788 708 famotidine (PEPCID) 20 MG TABS 20.0 MG ORAL AT BEDTIME Start: December 29, 2024 1:00:0 0 AM UTC End: January 03, 2025 2:16:4 1 PM UTC TIFFANY Cisneros [id number] on January 04, 2025 4:25:00 AM UTC Discont inued 940126 8111 2010 210 gabapentin (NEURONTIN) 300 MG CAPS 300.0 MG ORAL AT BEDTIME Start: December 29, 2024 1:00:0 0 AM UTC End: January 03, 2025 10:40: 00 PM UTC TIFFANY Cisneros [id number] on January 04, 2025 4:25:00 AM UTC Discont inued 1425146 2120 7020 101 DUONEB 0.5-2.5 MG/3 ML SOLN 3.0 ML INHALE D EVERY SIX HOURS Start: December 28, 2024 9:51:0 0 PM UTC End: December 31, 2024 1:00:0 7 AM UT TIFFANY Cisneros [id number] on December 31, 2024 1:00:00 AM UTC Discont inued 150448 7377 5017 801 isosorbide mono. (IMDUR) 60 MG TB24 60.0 MG ORAL ONCE DAILY Start: December 29, 2024 1:00:0 0 PM UTC End: January 03, 2025 2:16:4 1 PM UT TIFAFNY Cisneros [id number] on January 04, 2025 4:25:00 AM UT Discont inued Free Text Med Budesonide Inhalation Suspension 1 MG/2ML 0.5 MG INHALE D TWICE A DAY Start: December 29, 2024 1:00:0 0 AM UTC End: December 29, 2024 1:00:0 0 AM UT TIFFANY Cisneros [id number] on December 28, 2024 10:00:00 PM UT Discont inued Free Text Med Carvedilol Oral Tablet 25 MG 12.5 MG ORAL TWICE A DAY Start: December 29, 2024 1:00:0 0 AM UTC End: December 29, 2024 1:00:0 0 AM UT TIFFANY Cisneros [id number] on December 28, 2024 10:01:00 PM UT Discont inued Free Text Med oxyCODONE HCl Oral Capsule 5 MG 5.0 MG ORAL EVERY SIX HOURS NEEDED Start: December 28, 2024 9:53:0 0 PM UTC End: December 28, 2024 10:01: 38 PM UT TIFFANY [id number] on December 28, 2024 10:01:00 PM UT Discont inued Free Text Med Sertraline HCl Oral Tablet 100 MG 100.0 MG ORAL ONCE DAILY Start: December 29, 2024 1:00:0 0 PM UTC End: December 29, 2024 1:00:0 0 PM UT TIFFANY Cisneros [id number] on December 28, 2024 10:02:00 PM UT Discont inued Free Text Med Sevelamer Carbonate Oral Tablet 800 MG 800.0 MG ORAL THREE TIMES A DAY Start: December 29, 2024 1:00:0 0 AM UT End: December 29, 2024 1:00:0 0 AM [facility] TIFFANY Cisneros [id number] on December 28, 2024 10:02:00 PM UT Discont inued Free Text Med Aspirin 81 Oral Tablet Delayed Release 81 MG 81.0 MG ORAL ONCE DAILY Start: December 29, 2024 1:00:0 0 PM UTC End: December 29, 2024 1:00:0 0 PM UT TIFFANY Cisneros [id number] on December 28, 2024 10:02:00 PM UT Discont inued Free Text Med Ferrous Sulfate Oral Tablet 325 (65 Fe) MG 325.0 MG ORAL ONCE DAILY Start: December 29, 2024 1:00:0 0 PM UTC End: December 29, 2024 1:00:0 0 PM UT TIFFANY Cisneros [id number] on December 28, 2024 10:03:00 PM UT Discont inued Free Text Med Lipitor Oral Tablet 40 MG 40.0 MG ORAL AT BEDTIME Start: December 29, 2024 1:00:0 0 AM UTC End: December 29, 2024 1:00:0 0 AM [facility] TIFFANY Cisneros [id number] on December 28, 2024 10:03:00 PM UT Discont inued [id number] 2079 3968 910 niCARdipine (CARDENE) 2.5 MG/ML SOLN 50.0 MG INTRAV ENOUS TITRATE DIRECTED Start: December 28, 2024 9:54:0 0 PM UTC End: December 29, 2024 10:58: 58 AM UTC TIFFANY Cisneros [id number] on December 29, 2024 10:58:00 AM UTC Discont inued [id number] 0239 9710 102 sodium chloride 0.9% SOLN 230.0 ML INTRAV ENOUS TITRATE DIRECTED Start: December 28, 2024 9:54:0 0 PM UTC End: December 29, 2024 10:58: 58 AM UTC TIFFANY Cisneros [id number] on December 29, 2024 10:58:00 AM UTC Discont inued 5026 8070 515 cyanocobala min (VITAMIN B-12) 1000 MCG TABS 500.0 MCG ORAL ONCE DAILY Start: December 29, 2024 1:00:0 0 PM UTC End: January 03, 2025 2:16:4 1 PM UTC TIFFANY Cisneros [id number] on January 04, 2025 4:25:00 AM UTC Discont inued [id number] 2323 7043 198 MIRALAX PACKET 17 GM PACK 17.0 GM ORAL ONCE DAILY Start: December 29, 2024 1:00:0 0 PM UTC End: January 03, 2025 10:40: 00 PM UTC TIFFANY Cisneros [id number] on January 04, 2025 4:25:00 AM UTC Discont inued 0090 4053 961 multiple vitamin (ONE-A-DAY) TABS 1.0 TAB ORAL ONCE DAILY Start: December 29, 2024 1:00:0 0 PM UTC End: January 03, 2025 10:40: 00 PM UTC TIFFANY Cisneros [id number] on January 04, 2025 4:25:00 AM UTC Discont inued 165531 0703 3684 673 budesonide (PULMICORT) NEB 0.5 MG SUSP 0.5 MG INHALE D TWICE DAILY (RESPIRATO RY) Start: December 29, 2024 12:00: 00 AM UTC End: January 03, 2025 2:16:4 1 PM UTC TIFFANY Cisneros [id number] on January 04, 2025 4:25:00 AM UTC Discont inued [id number] 7802 1063 120 carvedilol (COREG) 12.5 MG TABS 12.5 MG ORAL TWICE A DAY Start: December 29, 2024 1:00:0 0 AM UTC End: December 29, 2024 3:52:3 2 PM UTC TIFFANY BROCK Cisneros [id number] on December 29, 2024 3:52:00 PM UTC Discont inued 0648607 8098 6055 262 oxyCODONE (ROXICODONE ) 5 MG TABS 5.0 MG ORAL EVERY SIX HOURS NEEDED Start: December 28, 2024 10:01: 00 PM UTC End: January 03, 2025 2:16:4 1 PM UTC TIFFANY Cisneros [id number] on January 04, 2025 4:25:00 AM UTC Discont inued 860206 5910 7024 211 sertraline (ZOLOFT) 50 MG TABS 100.0 MG ORAL ONCE DAILY Start: December 29, 2024 1:00:0 0 PM UTC End: January 03, 2025 2:16:4 1 PM UTC TIFFANY BROCK Blayne [id number] on January 04, 2025 4:25:00 AM UTC Discont inued 148244 8959 8013 001 sevelamer (RENVELA) 800 MG TABS 800.0 MG ORAL THREE TIMES A DAY Start: December 29, 2024 1:00:0 0 AM UTC End: January 03, 2025 2:16:4 1 PM UTC TIFFANY BROCK M [id number] on January 04, 2025 4:25:00 AM UTC Discont inued 7139 9862 701 ASPIRIN LOW DOSE 81 MG TBEC 81.0 MG ORAL ONCE DAILY Start: December 29, 2024 1:00:0 0 PM UTC End: January 03, 2025 2:16:4 1 PM UTC TIFFANY Cisneros [id number] on January 04, 2025 4:25:00 AM UTC Discont inued 7047939 2826 4060 811 ferrous sulfate (FEOSOL) 324 MG (65 FE) TBEC 324.0 MG ORAL ONCE DAILY Start: December 29, 2024 1:00:0 0 PM UTC End: January 03, 2025 2:16:4 1 PM UTC TIFFANY Cisneros [id number] on January 04, 2025 4:25:00 AM UTC Discont inued 859502 1995 9020 920 atorvastati n (LIPITOR) 20 MG TABS 40.0 MG ORAL AT BEDTIME Start: December 29, 2024 1:00:0 0 AM UTC End: January 03, 2025 2:16:4 1 PM UTC TIFFANY BROCK Cisneros [id number] on January 04, 2025 4:25:00 AM UTC Discont inued 783442 9721 9065 120 carvedilol (COREG) 12.5 MG TABS 25.0 MG ORAL TWICE A DAY Start: December 30, 2024 1:00:0 0 AM UTC End: January 03, 2025 2:16:4 1 PM UT MITESHJustine Amaral [id number] on January 04, 2025 4:25:00 AM UTC Discont inued 0843270 0006 9130 810 epoetin-epb x (RETACRIT) ESRD 31881 UNIT/ML SOLN 99378 .0 UNT SUBCUT ANEOUS EVERY SATURDAY, SATURDAY, SATURDAY Start: December 31, 2024 1:00:0 0 PM UTC End: January 03, 2025 2:16:4 1 PM UT MITESH ELLIS Amaral [id number] on January 04, 2025 4:25:00 AM UTC Discont inued 1709 4483 120 ergocalcife rol (VITAMIN D) 96635 UNIT CAPS 68396 .0 UNT ORAL ONCE EACH WEEK Start: December 30, 2024 1:00:0 0 PM UTC End: January 03, 2025 10:40: 00 PM UT MITESH Amaral [id number] on January 04, 2025 4:25:00 AM UTC Discont inued Free Text Med Albuterol Sulfate HFA Inhalation Aerosol Solution 108 (90 Base) MCG/ACT 8.5 GM INHALE D EVERY SIX HOURS NEEDED Start: December 30, 2024 3:37:0 0 PM UTC End: December 30, 2024 3:50:0 6 PM UTC TIFFANY PEREZGEOFFREY Cisneros [id number] on December 30, 2024 3:50:00 PM UTC Discont inued 276171 4838 3068 224 albuterol (VENTOLIN) HFA 108 (90 BASE) MCG/ACT AER 1.0 PUF INHALE D EVERY SIX HOURS NEEDED Start: December 30, 2024 3:49:0 0 PM UTC End: January 03, 2025 2:16:4 1 PM UTC TIFFANY Cisneros [id number] on January 04, 2025 4:25:00 AM UTC Discont inued [id number] 7288 7020 101 DUONEB 0.5-2.5 MG/3 ML SOLN 3.0 ML INHALE D EVERY SIX HOURS Start: December 30, 2024 6:00:0 0 AM UTC End: December 31, 2024 1:00:2 0 AM UTC TIFFANY BROCK Cisneros AREDDEN on December 31, 2024 1:00:00 AM UTC Discont inued [id number] 5088 7020 101 DUONEB 0.5-2.5 MG/3 ML SOLN 3.0 ML INHALE D EVERY SIX HOURS (RESPIRATO RY) Start: December 31, 2024 6:00:0 0 AM UTC End: January 03, 2025 5:17:1 4 AM UTC TIFFANY BROCK Cisneros [id number] on January 03, 2025 5:17:00 AM UTC Discont inued XXXX XXX0 008 GI COCKTAIL 30 ML SUSP 30.0 ML ORAL EVERY SIX HOURS NEEDED Start: December 31, 2024 1:06:0 0 AM UTC End: January 03, 2025 2:16:4 1 PM UTC KANDIS OWENS [id number] on January 04, 2025 4:25:00 AM UTC Discont inued 842638 8769 7040 925 midodrine (PROAMATINE ) 10 MG TABS 10.0 MG ORAL THREE TIMES A DAY Start: December 31, 2024 3:29:0 0 PM UTC End: January 03, 2025 2:16:4 1 PM UTC TIFFANY BROCK Cisneros [id number] on January 04, 2025 4:25:00 AM UTC Discont inued 5162095 8888 6084 110 ALBUMIN HUMAN 25% SOLN 200.0 ML INTRAV ENOUS ONE TIME ONLY (SCHEDULED DOSE) 100.0 ML/HR Start: December 31, 2024 3:29:0 0 PM UTC End: December 31, 2024 4:08:5 2 PM UTC TIFFANY Cisneros [id number] on December 31, 2024 4:08:00 PM UTC Discont inued 0941339 4487 7020 101 DUONEB 0.5-2.5 MG/3 ML SOLN 3.0 ML INHALE D EVERY 6 HOURS WHILE AWAKE (RESPIRATO RY) Start: January 03, 2025 12:00: 00 PM UTC End: January 03, 2025 2:16:4 1 PM UTC KANDIS JUSTICEN [id number] on January 04, 2025 4:25:00 AM UTC SOCIAL HISTORY SOCIAL HISTORY SNOMED-CT Social History Element Description Effective Dates Offered Cessation Comment UpdatedBy [id number] Smoking Status Unknown If Ever Smoked SOCIAL HISTORY - Gender Sex: Female SOCIAL HISTORY - Status : status i nformation is not available Intention in Next Year: intention information is not available SOCIAL HISTORY - Sexual Behavior Sexual Orientation Gender Identity SNOMED-CT Description SNO MED -CT Description Activity Level No of Partners Partner Type UpdatedBy Information is not available VITAL SIGNS PATIENT VITAL SIGNS This section displays the mo st recent value for each vital sign as of January 04, 2025 8:04:32 PM UT Loinc Code Vital Sign Activity Date Result Updated By 8302-2 Body height December 28, 2024 8:48:44 PM UTC 162.56 cm (64.0 in) [id number] on December 28, 2024 8:48:[place] [address]-5 Body mass index (BMI ) [Ratio] December 28, 2024 8:48:44 PM UTC 28.836 kg/m2 [id number] on December 28, 2024 8:48:44 PM UT 3140-1 Body Surface Area Derived From Formula December 28, 2024 8:48:44 PM UTC 1.8163 m2 [id number] on December 28, 2024 8:48:44 PM UT 8310-5 Body temperature January 03, 2025 4:01:00 PM UTC 98.1 [degF] [id number] on January 03, 2025 4:02:[place] [address]-5 Body weight Measured December 28 8:48:44 PM UTC 77.7 kg (171.0 lb) [id number] on December 28, 2024 8:48:44 PM UTC 8462-4 Diastolic blood pressure January 03, 2025 4:01:00 PM UTC 65.0 mm[Hg] [id number] on January 03, 2025 4:02:33 PM UTC 8867-4 Heart rate January 03, 2025 4:01:00 PM UTC 60 /min [id number] on January 03, 2025 4:02:33 PM UTC 3150-0 Inhaled oxygen concentration January 03, 2025 12:50:00 PM UTC 32.0 % [id number] on January 03, 2025 12:52:38 PM UTC 3151-8 Inhaled oxygen flow rate January 03, 2025 4:01:00 PM UTC 3.0 L/min [id number] on January 03, 2025 4:02:33 PM UTC 8478-0 Mean blood pressure January 03, 2025 4:01:00 PM UTC 88.0 mm[Hg] [id number] on January 03, 2025 4:02:33 PM UTC 75873-2 Oxygen saturation in Arterial blood by Pulse oximetry January 03, 2025 4:01:00 PM UTC 92.0 % [id number] on January 03, 2025 4:02:33 PM UTC 9279-1 Respiratory rate January 03, 2025 4:01:00 PM UTC 20 /min [id number] on January 03, 2025 4:02:33 PM UTC 8480-6 Systolic blood pressure January 03, 2025 4:01:00 PM UTC 120.0 mm[Hg] [id number] on January 03, 2025 4:02:33 PM UTC 33256-7 Vital capacity [Volu me] Respiratory system by Spirometry January 03, 2025 12:50:00 PM UTC 1000.0 ml [id number] on January 03, 2025 12:52:38 PM UTC PEDIATRIC GROWTH CHART - VITAL SIGNS This section displays Head C ircumference Percentile, Weight for Length Percentile and BMI Percentile Loinc Code Pediatric Measure Age (Months) Result Updat ed By No Pediatric Growth Chart Pe rcentile Information Available. GOALS PATIENT GOALS Goal Assigned Date Updated By DIVYA BROWN REMAINS FREE F ROM COMPLICATIONS FOR MED-SURG ADMIT DURING THE CARE PERIOD December 30, 2024 [id number] on December 31, 2024 1:39 :40 AM UTC HEALTH CONCERNS Problems Concern Status Health Concern problem infor mation not available. Smoking Status Status Years Used Consumed packs p er day Health Concern smoking histo ry information not available. Family History Concern Status Health Concern family histor y information not available. ENCOUNTERS ENCOUNTER INFORMATION Reason for Visit CHF EXACERBATION; HY PERTENSIVE EMERGENCY Admission December 28, 2024 7:31:00 PM UTC [facility] [address] [address] Discharge January 03, 2025 10:40:00 PM UTC DIS CHARGED TO HOME OR SELF CARE ENCOUNTER DIAGNOSES Note Title Discharge Summary Date Of Service January 03, 2025 7:03:07 PM UTC Created By [id number] on January 03 7:03:07 PM UTC Signed By [id number] on January 04 10:32:57 AM UT Code System Diagnosis Onset Date [id number] SNOMED-CT Hypervolemia ABSTRACT DIAGNOSES Code System Diagnosis Updated By E87.70 ICD10 FLUID OVERLOAD, UNSPECIFIED [id number] on January 04, 2025 8:03:26 PM UT E87.70 ICD10 FLUID OVERLOAD, UNSPECIFIED [id number] on January 04, 2025 8:03:26 PM UT J96.01 ICD10 ACUTE RESPIRATORY FAILURE WI TH HYPOXIA [id number] on January 04, 2025 8:03:26 PM UT N18.6 ICD10 END STAGE RENAL DISEASE [id number] on January 04, 2025 8:03:26 PM UT I13.2 ICD10 HYPERTENSIVE HEA RT AND CHRONIC KIDNEY DISEASE WITH HEART FAILURE AND WITH STAGE 5 CHRONIC KIDNEY DISEASE, OR END STAGE RENAL DISEASE [id number] on January 04, 2025 8:03:26 PM UT I50.9 ICD10 HEART FAILURE, UNSPECIFIED F [id number] on January 04, 2025 8:03:26 PM UT Z99.2 ICD10 DEPENDENCE ON RENAL DIALYSIS [id number] on January 04, 2025 8:03:26 PM UT Z91.158 ICD10 PATIENT'S NONCOM PLIANCE WITH RENAL DIALYSIS FOR OTHER REASON [id number] on January 04, 2025 8:03:26 PM UTC F41.9 ICD10 ANXIETY DISORDER, UNSPECIFIE D [id number] on January 04, 2025 8:03:26 PM UT F32.A ICD10 DEPRESSION, UNSPECIFIED [id number] on January 04, 2025 8:03:26 PM UTC Z79.899 ICD10 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 (CURRENT) DR RADHA THERAPY [id number] on January 04, 2025 8:03:26 PM UTC Z79.82 ICD10 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 (CURRENT) USE OF A SPIRIN [id number] on January 04, 2025 8:03:26 PM UTC E78.5 ICD10 HYPERLIPIDEMIA, UNSPECIFIED [id number] on January 04, 2025 8:03:26 PM UTC I25.10 ICD10 ATHEROSCLEROTIC HEART DISEASE OF [place] CORONARY ARTERY WITHOUT ANGINA PECTORIS [id number] on January 04, 2025 8:03:26 PM UTC Z95.2 ICD10 PRESENCE OF PROSTHETIC HEART VALVE [id number] on January 04, 2025 8:03:26 PM UTC Z95.1 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 [id number] on January 04, 2025 8:03:26 PM UTC D63.1 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 [id number] on January 04, 2025 8:03:26 PM UTC I16.0 ICD10 HYPERTENSIVE URGENCY [id number] on January 04, 2025 8:03:26 PM UTC CARE TEAM Care Hot Metal Crane Operator Role ELLIS SAGASTUME Consulting BROCK ALLEN Admitting BROCK ALLEN Primary Attending BROCK ALLEN Referring DEFINED NO Primary Care CHRISTIANE DANPippa Consulting BROCK ALLEN Surgeon HOSPITAL DISCHARGE INSTRUCTION DISCHARGE INSTRUCTION Encounter [id number] Admit Date December 28, 2024 7:31:00 PM UT Discharge Date January 03, 2025 10:40:0 0 PM UT PATIENT EDUCATION SUMMARY Patient/Visit Information: Patient Name: DIVYA BROWN Diag: Attending Caregiver: TIFFANY Cisneros Discharge Instruction Sheets Provided: BEFAST-Stroke Warning Signs COVID-19 CDC-EN Discharge Information Eating Plan for Hemodialysis Fall Prevention in Hospitals and in the Home [facility] Pain and Responsible Opioid (Pain Medication) Management Hemodialysis [place]NE[place]- HELP Low-Sodium Eating Plan Medication Side Effects Suicide - Managing your Feelings Patient Instructions: Followup Appointments/Instructions: HISTORY AND PHYSICAL NOTE HISTORY AND PHYSICAL NOTE Note Title Admission History an d Physical Date Of Service December 28, 2024 9:44:46 PM UT Created By [id number] on December 28 9:44:46 PM UT Signed By [id number] on December 28 025 10:01:15 PM [facility] Chief Complaint Lower extremity edema, shortness of breath History of Present Illness Divya Brown is a very pleasant 59-year-old female with a history of end-stage renal disease off of dialysis since April of last year, hypertension, CHF, and CAD status post CABG and VHD status post unspecified valve replacement who presented to [facility] Emergency Department with increasing lower extremity edema. The patient reports she was previously on dialysis for 3-1/2 years. When she moved out of her [place] back to her daughter's home, she was no longer able to get transportation to her dialysis clinic. She has been off of dialysis since April 2024. She was done surprisingly well since that time, with the exception of the last several days when she began to have increasing lower extremity edema and shortness of breath. She presented to the emergency department at [facility] for evaluation, was found to have a blood pressure of 230/132. Her creatinine was 7.0 with a BUN of 51 and CO2 of 21[place] [address]. The case was discussed with Nephrology at our facility and the patient was transferred to our intensive care unit for further evaluation and treatment. Past Medical History End-stage renal disease Disorder of lymph node, Left leg enlarged lymph node Hyperlipidemia Hypertensive disorder Congestive heart failure Past Surgical History Coronary artery bypass graft Social History alcohol use No Known Use drug use No Known Use marital status Family History Parents Father Mother Alive Allergies No Known Allergies Home Medications Albuterol Sulfate HFA Inhalation Aerosol Solution 108 (90 Base) MCG/ACT Dose: 8.5 GM INHALED EVERY SIX HOURS NEEDED Aspirin 81 Oral Tablet Delayed Release 81 MG Dose: 81 BY MOUTH ONCE DAILY Budesonide Inhalation Suspension 1 MG/2ML Dose: 0.5 MG INHALED TWICE A DAY Budesonide-Formoterol Fumarate Inhalation Aerosol 160-4.5 MCG/ACT Dose: 10.2 INHALED TWICE A DAY Carvedilol Oral Tablet 25 MG Dose: 12.5 MG BY MOUTH TWICE A DAY cyanocobalamin Dose: 50 MCG BY MOUTH ONCE DAILY Famotidine Oral Tablet 20 MG Dose: 20 BY MOUTH AT BEDTIME Ferrous Sulfate Oral Tablet 325 (65 Fe) MG Dose: 325 BY MOUTH ONCE DAILY Gabapentin Oral Capsule 300 MG Dose: 300 MG BY MOUTH AT BEDTIME hydrALAZINE HCl Oral Tablet 100 MG Dose: 100 BY MOUTH THREE TIMES A DAY Ipratropium-Albuterol Inhalation Solution 0.5-2.5 (3) MG/3ML Dose: 3 ML INHALED EVERY SIX HOURS Isosorbide Mononitrate ER Oral Tablet Extended Release 24 Hour 60 MG Dose: 60 BY MOUTH ONCE DAILY Lipitor Oral Tablet 40 MG Dose: 40 BY MOUTH AT BEDTIME Melatonin ER Oral Tablet Extended Release 10 MG Dose: 10 BY MOUTH AT BEDTIME MiraLax Mix-In [place] Oral Packet 17 GM Dose: 17 GM BY MOUTH ONCE DAILY Multivitamin Adult Oral Tablet Dose: 1 TAB BY MOUTH ONCE DAILY oxyCODONE HCl Oral Capsule 5 MG Dose: 5 MG BY MOUTH EVERY SIX HOURS NEEDED Sertraline HCl Oral Tablet 100 MG Dose: 100 BY MOUTH ONCE DAILY Sevelamer Carbonate Oral Tablet 800 MG Dose: 800 BY MOUTH THREE TIMES A DAY Sodium Bicarbonate Oral Tablet 650 MG Dose: 650 BY MOUTH THREE TIMES A DAY Torsemide Oral Tablet 20 MG Dose: 20 BY MOUTH ONCE DAILY traZODone HCl Oral Tablet 50 MG Dose: 50 BY MOUTH AT BEDTIME Vital Signs 1730 HR 82 RR 20 BP 205 / 99 O2Sat 95 1630 T 98.4 1628 BP 177 / 95 1622 HR 90 O2Sat 93 Intake and Output previous current encounter day day cumulative Intake - 500 500 Output - 200 200 Balance - 300 300 Physical Exam Narrative General: Alert and oriented, no acute distress Neurologic: Awake, alert, no apparent focal deficits Eye: normal conjunctiva HENT: Normocephalic, atraumatic Neck: no JVD Lungs: On 3 L, no distress Heart: Normal rate, regular rhythm Abdomen: nondistended Musculoskeletal: 3+ lower extremity pitting edema Skin: Skin is warm, dry, no rashes or lesions Psychiatric: Cooperative, appropriate mood and affect Lab Results 1635 Hematology WBC 5.6 RBCS 3.8 (L) HGB 10.2 (L) HCT 32.8 (L) MCV 86.8 MCH 27.0 MCHC 31.1 (L) RDW 15.9 (H) PLT S 169 MPV 9.5 NEUT% 74.0 (H) LYMPH% 14.9 (L) MONO% 7.5 EOS% 1.8 BASO% 1.4 (H) IG% 0.4 NRBC% 0.0 NEUT# 4.1 LYMPH# 0.8 (L) MONO# 0.4 EOS# 0.1 BASO# 0.1 IG# 0.02 NRBC# 0.00 MANDIFF? No Procedures and Surgeries None Assessment/Plan Fluid overload secondary to noncompliance with hemodialysis End-stage renal disease -reported CHF with unknown LVEF, check echocardiogram -off of dialysis since April 2024 -has LUE AVF -nephrology consulted -resume home torsemide, sevelamer, sodium bicarb -discussed with ER physician, decision made to transfer to our facility Accelerated hypertension, secondary to noncompliance w/ HD -resume home BP medications including hydralazine 100 mg t.i.d., Coreg 12.5 mg b.i.d., Imdur 60 mg daily -start on Cardene drip Acute hypoxic respiratory failure, likely secondary to pulmonary edema -currently requiring 3 L via nasal cannula -chest x-ray ordered -resume home torsemide, give Bumex 2 mg IV x1 Anxiety and depression -continue home sertraline DVT PPX: Subcutaneous heparin I confirmed that the patient's Advance Care Plan is present, code status is documented, or surrogate decision maker is listed in the patients medical record. I have utilized all available immediate resources to obtain, update, or review the patients current medications Active Medications heparin sodium (PORCINE) 5000 UNIT/ML 5000 UNT SUBCUT Q12H hydrALAZINE (APRESOLINE) 20 MG/ML 10 MG IV PUSH Q6HPRN for SYSTOLIC BLOOD PRESSURE >165 acetaminophen (TYLENOL) 1000 MG PO Q6HPRN for MILD PAIN 1-3 PAIN SCALE, TEMP >100.4 DUONEB 0.5-2.5 MG/3 ML 3 ML INHALED [id number] for SHORTNESS OF BREATH melatonin 5 MG PO BEDTIMEPRN for SLEEP MIRALAX PACKET 17 GM PO DAILYPRN for CONSTIPATION NOZIN NASAL WORDPRESS DEVELOPER POPSWAB 1 EA NASAL BID APPLY TO EACH NOSTRIL ondansetron (ZOFRAN) INJ 4 MG/2 ML 4 MG IV PUSH Q6HPRN for NAUSEA VOMITING sodium chloride 0.9% FLUSH 10 ML IV PUSH PRN for FLUSH IV LINE Current Code Status of Patient Full Code Admission Basis The patient is being admitted for inpatient services that are reasonable and necessary with the expected length of stay of at least 2 midnights. Electronically signed by TIFFANY LOYOLA on 1801 CONSULTATION NOTE CONSULTATION NOTE Note Title ATC Telepulmonary IC U Consult Date Of Service December 28, 2024 10:06:0 9 PM UTC Created By [id number] on December 28 10:06:09 PM UTC Signed By [id number] on December 28 10:17:17 PM UTC History of Present Illness 59 yo with pmh including CHF, ESRD, CAD initially presented to outside hospital with SOB. Pt reports not having dialysis for many months. Has still been making some urine but recently with increased SOB, weakness. In ED found to be vol overloaded and hypertensive. Transferred for HD and BP mgmt. At time of [facility] eval, pt with BP just over 200. On 3L NC. Past Medical History End-stage renal disease Disorder of lymph node, Left leg enlarged lymph node Hyperlipidemia Hypertensive disorder Congestive heart failure Past Surgical History Coronary artery bypass graft Allergies No Known Allergies Home Medications Albuterol Sulfate HFA Inhalation Aerosol Solution 108 (90 Base) MCG/ACT Dose: 8.5 GM INHALED EVERY SIX HOURS NEEDED Aspirin 81 Oral Tablet Delayed Release 81 MG Dose: 81 BY MOUTH ONCE DAILY Budesonide Inhalation Suspension 1 MG/2ML Dose: 0.5 MG INHALED TWICE A DAY Budesonide-Formoterol Fumarate Inhalation Aerosol 160-4.5 MCG/ACT Dose: 10.2 INHALED TWICE A DAY Carvedilol Oral Tablet 25 MG Dose: 12.5 MG BY MOUTH TWICE A DAY cyanocobalamin Dose: 50 MCG BY MOUTH ONCE DAILY Famotidine Oral Tablet 20 MG Dose: 20 BY MOUTH AT BEDTIME Ferrous Sulfate Oral Tablet 325 (65 Fe) MG Dose: 325 BY MOUTH ONCE DAILY Gabapentin Oral Capsule 300 MG Dose: 300 MG BY MOUTH AT BEDTIME hydrALAZINE HCl Oral Tablet 100 MG Dose: 100 BY MOUTH THREE TIMES A DAY Ipratropium-Albuterol Inhalation Solution 0.5-2.5 (3) MG/3ML Dose: 3 ML INHALED EVERY SIX HOURS Isosorbide Mononitrate ER Oral Tablet Extended Release 24 Hour 60 MG Dose: 60 BY MOUTH ONCE DAILY Lipitor Oral Tablet 40 MG Dose: 40 BY MOUTH AT BEDTIME Melatonin ER Oral Tablet Extended Release 10 MG Dose: 10 BY MOUTH AT BEDTIME MiraLax Mix-In [place] Oral Packet 17 GM Dose: 17 GM BY MOUTH ONCE DAILY Multivitamin Adult Oral Tablet Dose: 1 TAB BY MOUTH ONCE DAILY oxyCODONE HCl Oral Capsule 5 MG Dose: 5 MG BY MOUTH EVERY SIX HOURS NEEDED Sertraline HCl Oral Tablet 100 MG Dose: 100 BY MOUTH ONCE DAILY Sevelamer Carbonate Oral Tablet 800 MG Dose: 800 BY MOUTH THREE TIMES A DAY Sodium Bicarbonate Oral Tablet 650 MG Dose: 650 BY MOUTH THREE TIMES A DAY Torsemide Oral Tablet 20 MG Dose: 20 BY MOUTH ONCE DAILY traZODone HCl Oral Tablet 50 MG Dose: 50 BY MOUTH AT BEDTIME Active Medications heparin sodium (PORCINE) 5000 UNIT/ML 5000 UNT SUBCUT Q12H hydrALAZINE (APRESOLINE) 20 MG/ML 10 MG IV PUSH Q6HPRN for SYSTOLIC BLOOD PRESSURE >165 acetaminophen (TYLENOL) 1000 MG PO Q6HPRN for MILD PAIN 1-3 PAIN SCALE, TEMP >100.4 ASPIRIN LOW DOSE 81 MG PO DAILY atorvastatin (LIPITOR) 40 MG PO BEDTIME budesonide (PULMICORT) NEB 0.5 MG INHALED RTBID carvedilol (COREG) 12.5 MG PO BID cyanocobalamin (VITAMIN B-12) 500 MCG PO DAILY 500 MCG FOR 50 MCG DOSE ORDER DUONEB 0.5-2.5 MG/3 ML 3 ML INHALED Q6H DUONEB 0.5-2.5 MG/3 ML 3 ML INHALED [id number] for SHORTNESS OF BREATH famotidine (PEPCID) 20 MG PO BEDTIME ferrous sulfate (FEOSOL) 324 MG (65 FE) 324 MG PO DAILY gabapentin (NEURONTIN) 300 MG PO BEDTIME hydrALAZINE (APRESOLINE) 100 MG PO TID isosorbide mono. (IMDUR) 60 MG PO DAILY melatonin 5 MG PO BEDTIMEPRN for SLEEP MIRALAX PACKET 17 GM PO DAILY MIRALAX PACKET 17 GM PO DAILYPRN for CONSTIPATION multiple vitamin (ONE-A-DAY) 1 TAB PO DAILY niCARdipine (CARDENE) 2.5 MG/ML 50 MG IV TITRATEPRN for HYPERTENSION FINAL CONCENTRATION = 0.2 MG/ML REMOVE 20ML FROM BAG PRIOR TO ADDING NICARDIPINE DILUTED SOLUTION STABLE FOR 24 HOURS AT ROOM TEMP. NOZIN NASAL WORDPRESS DEVELOPER POPSWAB 1 EA NASAL BID APPLY TO EACH NOSTRIL ondansetron (ZOFRAN) INJ 4 MG/2 ML 4 MG IV PUSH Q6HPRN for NAUSEA VOMITING oxyCODONE (ROXICODONE) 5 MG PO Q6HPRN for MODERATE PAIN 4-6 PAIN SCALE sertraline (ZOLOFT) 100 MG PO DAILY sevelamer (RENVELA) 800 MG PO TID sodium bicarbonate 650 MG PO TID sodium chloride 0.9% FLUSH 10 ML IV PUSH PRN for FLUSH IV LINE torsemide (DEMADEX) 20 MG PO DAILY traZODone (DESYREL) 50 MG PO BEDTIME Social History alcohol use No Known Use drug use No Known Use marital status Family History Parents Father Mother Alive Vital Signs 1745 HR 89 BP 219 / 103 (H) O2Sat 97 1730 HR 82 RR 20 BP 205 / 99 O2Sat 95 1630 T 98.4 Intake and Output previous current encounter day day cumulative Intake - 500 500 Output - 200 200 Balance - 300 300 Physical Exam Narrative Gen: awake, alert, interactive HEENT: NCAT, NC in place Chest: symmetrical chest rise CV: rrr Abd: non-distended Ext: well perfused Neuro: moves all ext. No focal deficits. Lab Results 1634 Special Chemistry LACTATE 0.9 1634 Chemistry NA 139 K 4.2 CHLORIDE 104 CO2 21.4 AGAP 17.8 GLUC 95 BUN 57 (H) CREAT 6.8 (H) GFR 7 (L) OSMO LORA 305 (H) TP 7.3 ALB 2.9 (L) GLOB 4.4 ALB/GLOB 0.7 CALCIUM 9.0 BILI TOT 0.50 AST 11 ALT 12 ALP 114 MG 2.6 (H) NTPROBNP 644906.00 (H) 1634 Hematology WBC 5.6 RBCS 3.8 (L) HGB 10.2 (L) HCT 32.8 (L) MCV 86.8 MCH 27.0 MCHC 31.1 (L) RDW 15.9 (H) PLT S 169 MPV 9.5 NEUT% 74.0 (H) LYMPH% 14.9 (L) MONO% 7.5 EOS% 1.8 BASO% 1.4 (H) IG% 0.4 NRBC% 0.0 NEUT# 4.1 LYMPH# 0.8 (L) MONO# 0.4 EOS# 0.1 BASO# 0.1 IG# 0.02 NRBC# 0.00 MANDIFF? No 1635 Urinalysis COLOR Yellow (Preliminary) APPEAR Clear (Preliminary) GLUCOSE Norm (Preliminary) BILIRUB Negative (Preliminary) KETONE Negative (Preliminary) SP GRAV 1.020 (Preliminary) BLOOD 25 (Preliminary) PH 6 (Preliminary) PROTEIN 500 (Preliminary) UROBIL Norm (Preliminary) NITRITE Negative (Preliminary) ULEU Negative (Preliminary) Assessment/Plan ESRD: -- has fistula for access -- mgmt per renal -- urgent need for HD would be HTN, pulm edema. Electrolytes not requiring urgent HD Pulm Edema: -- acute resp failure with hypoxia -- secondary to vol overload in setting of above. -- anticiapted improvement with HD HTN Urgency: -- caution not to over corret -- would target around 180. -- use nicardipine if needed for tighter control HLD: -- continue home meds Critical Care Time The entirety of this encounter was done via telemedicine. CCM time 50 min. Pt at risk of lfie threatening deterioration from vol overload, resp failure, HTN. 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 Role on Team Status Start Date End Date Update d By TIFFANY LOYOLA Surgeon normal December 31, 2024 5:00:00 AM UT January 03, 2025 10:40:00 PM [facility] [id number] on January 04, 2025 8:03:52 PM [facility] POLA LOYOLA Consulting normal December 28 8:05:02 PM [facility] January 03, 2025 10:40:00 PM [facility] [id number] on January 04, 2025 8:03:52 PM [facility] MITESH LOYOLA Consulting normal December 28, 2024 8:05:02 PM UTC January 03, 2025 10:40:00 PM UTC [id number] on January 04, 2025 8:03:52 PM UTC NO DEFINED PRIMARY C PCP normal December 28, 2024 6:58:37 PM UTC January 03, 2025 10:40:00 PM UTC [id number] on January 04, 2025 8:03:52 PM UTC TIFFANY LOYOLA Referring normal December 28, 2024 6:58:37 PM UTC January 03, 2025 10:40:00 PM UTC [id number] on January 04, 2025 8:03:52 PM UTC TIFFANY LOYOLA Attending normal December 28, 2024 6:58:37 PM UTC January 03, 2025 10:40:00 PM UTC [id number] on January 04, 2025 8:03:52 PM UTC TIFFANY LOYOLA Admitting normal December 28, 2024 6:58:37 PM UTC January 03, 2025 10:40:00 PM UTC [id number] on January 04, 2025 8:03:52 PM UTC
--- OUTSIDE RECORDS SUMMARY | 2025-01-13 13:25 | XMS_ITS | Encounter Summary ---
Author Organization [place] [address] Care Team Providers Care Deep Fat Fry Cook Name Role Phone Jovi Carter Ud, MD Unavailable [phone] Roger Talley MD Unavailable Noreen Ortega DO Primary Care Provider + [phone] Reason for Visit * Reason Comments Leg Swelling C/O central back manav n and pitting edema in both lower legs. Hx-CHF, HTN, COPD, kidney failure. Hasn't had dialysis in two weeks due to transport issues. Back Pain * Auth/Cert/Inpt (Routine) Specialty Diagnoses / Procedures Referred By Contac t Referred To Contact Diagnoses Bilateral lower extremity edema Procedures N/A Referral ID Status Reason Start Date Expiration Date Visits Re quested Visits Authorized [id number] 1 1 Encounter Details Date Type Department Care Team (Latest Contact Info) Description 01/13/2025 1:25 PM EDT - 01/19/2025 2:22 PM EDT Hospital Encounter [facility] [address] [address] [place] [id number] Dennis Gracia MD [address] [place] [address] Mathieu Belcher MD [address] [place] [address] [place], [place] [id number] José Gaviria MD [address] [place] [address] Bilateral lower extremity edema (Primary Dx); Hypervolemia, unspecified hypervolemia type; Acute midline low back pain without sciatica; End stage renal disease on dialysis (HCC) Discharge Disposition: Home or Self Care Social History Tobacco Use Types Packs/Day Years Used Date Smoking Tobacco: Former Cigarettes 0.2 37.3 0 04/05/1985 - 07/29/2022 Smokeless Tobacco: Never Tobacco Cessation:Counseling Given: Not Answered Alcohol Use Standard Drinks/Week Comments Never 0 (1 standard drink = 0.6 oz pur e alcohol) [facility] Utilities Answer Date Recorded In the past 12 months has th e [employer], gas, oil, or water [employer] threatened to shut off services in your home? No 01/16/2025 AUDIT-C Answer Date Recorded Q1: How often do you have a drink containing alc ohol? Never 03/18/2021 Average Number of Drinks Not on file 021 Frequency of Binge Drinking Not on file 02/27 Overall Financial Resource Strain (CARDIA) Answe r Date Recorded How hard is it for you to pa y for the very basics like food, housing, medical care, and heating? Not hard at all 01/16/2025 PHQ-2 Answer Date Recorded PHQ-2 Total Score 0 01/16/2025 [facility] - Occupational Stress Questionnaire Answer Date Recorded Do you feel stress - tense, restless, nervous, or anxious, or unable to sleep at night because your mind is troubled all the time - these days? Not at all 01/16/2025 Exercise Vital Sign Answer Date Recorde d On average, how many days pe r week do you engage in moderate to strenuous exercise (like a brisk walk)? 0 days 01/16/2025 On average, how many minutes do you engage in exercise at this level? 0 min 01/16/2025 Hunger Vital Sign Answer Date Recorded Within the past 12 months, y ou worried that your food would run out before you got the money to buy more. Never true 01/17/20 25 Within the past 12 months, t he food you bought just didn't last and you didn't have money to get more. Never true 01/16/2025 [facility] IP Transportation Answer D ate Recorded In the past 12 months, has l ack of reliable transportation kept you from medical appointments, meetings, work or from getting things needed for daily living? Yes 01/16/2025 Comments No Sex and Gender Information Value Date Recorded Sex Assigned at Not on file Legal Sex Female 10:29 PM EDT Gender Identity Not on file Sexual Orientation Not on file documented as of this encounter Last Filed Vital Signs Vital Sign Reading Time Taken Comments Blood Pressure 142/73 01/19/2025 12:30 PM EDT Pulse 64 01/19/2025 1:05 PM EDT Temperature 36.6 C (97.8 F) 01/19/2025 12:30 PM EDT Respiratory Rate 18 01/19/2025 12:30 PM EDT Oxygen Saturation 98% 01/19/2025 12:30 PM EDT Inhaled Oxygen Concentration - - Weight 69.9 kg (154 lb) 01/19/2025 5:07 AM EDT Height 162.6 cm (5' 4 ) 01/13/2025 5:44 PM EDT Body Mass Index 26.43 01/13/2025 5:44 PM EDT documented in this encounter Functional Status * Alcohol Screening Score Answer Date of Assessment Author 0 01/13/2025 5:00 PM EDT Alida Zhou RN * Drug Screening Score Answer Date of Assessment Author 0 01/13/2025 5:00 PM EDT Alida Zhou RN * Question Answer Date of Assessment Author How often do you have a drin k containing alcohol? 0 01/13/2025 5:00 PM EDT Alida Zhou RN How many drinks containing alcohol do you have on a typical day when you are drinking? 0 01/13/2025 5:00 PM EDT Alida Zhou RN How often do you have six or more drinks on one occasion? 0 01/13/2025 5:00 PM EDT Alida Zhou RN AUDIT-C to Determine Rows 4-10 0 01/13/2025 5:00 PM EDT Alida Zhou RN * Is the person deaf or does he/she have serious difficulty hearing? Answer Date of Assessment Author No 04/06/2021 2:46 PM EDT Tracy Grewal RN * Is the person blind or does he/she have serious difficulty seeing even when wearing glasses? Answer Date of Assessment Author No 04/06/2021 2:46 PM EDT Tracy Grewal RN * Does this person have serious difficulty walking or climbing stairs? Answer Date of Assessment Author No 04/06/2021 2:46 PM EDT Tracy Grewal RN * Does this person have difficulty dressing or bathing? Answer Date of Assessment Author No 04/06/2021 2:46 PM EDT Tracy Grewal RN * Because of a physical, mental or emotional condition, does this person have difficulty doing errands alone such as visiting a doctor's office or shopping? Answer Date of Assessment Author No 04/06/2021 2:46 PM EDT Tracy Grewal RN * Question Answer Date of Assessment Author Little interest or pleasure in doing things 0 01/16/2025 12:17 PM EDT Ron Heard in, CHANNEL DEVELOPMENT DIRECTOR Feeling down, depressed, or hopeless 0 01/16/2025 12:17 PM EDT Ron Heard in, CHANNEL DEVELOPMENT DIRECTOR PHQ-2 Total Score 0 01/16/2025 12:17 PM EDT Félix Kimberlain, CHANNEL DEVELOPMENT DIRECTOR * PHQ-9 Total Score Answer Date of Assessment Author 0 01/16/2025 12:17 PM EDT Caitlin Heardberlain, CHANNEL DEVELOPMENT DIRECTOR * PHQ-2 Total Score Answer Date of Assessment Author 0 01/16/2025 12:17 PM EDT Caitlin Heardberlain, CHANNEL DEVELOPMENT DIRECTOR * Suicide Severity Rating Answer Date of Assessment Author No Risk 01/13/2025 1:28 PM EDT Tiffany Silva RN * [place] Suicide Severity Rating Scale (Q shift for moderate and high) Question Answer Date of Assessment Author 1. In the past month, have y ou wished you were or wished you could go to sleep and not wake up? 0 01/13/2025 1:28 PM EDT Tiffany Dominguez RN 2. In the past month, have y ou actually had any thoughts of killing yourself? (If no, skip to question 6) 0 01/13/2025 1:28 PM EDT Tiffany Silva RN 6. Have you ever done anythi ng, started to do anything, or prepared to do anything to end your life? 0 01/13/2025 1:28 PM EDT Tiffany Silva RN documented as of this encounter Mental Status * Because of a physical, mental or emotional condition, does this person have serious difficulty concentrating, remembering or making decisions? Answer Entry Date Author No 04/06/2021 2:46 PM EDT Tracy Grewal RN documented in this encounter Discharge Summaries * José Gaviria MD - 01/19/2025 10:32 AM EDT Images from the original note were not included. [facility] Discharge Summary Patient Name: Divya Brown : 1965 Admit Date: 01/13/2025 Discharge Date: 01/19/2025 Admitting Physician: Mathieu Belcher MD Discharge Physician: José Gaviria MD Reason for Hospitalization: Active Hospital Problems Thoracoabdominal aortic aneurysm (TAAA) without rupture Bilateral lower extremity edema *Acute on chronic HFrEF (heart failure with reduced ejection fraction) (HCC) Acute lumbar back pain Chronic respiratory failure with hypoxia (HCC) Acute pulmonary edema ([facility]) End stage renal disease on dialysis ([facility]) Anemia due to stage 4 chronic kidney disease (HCC) CKD (chronic kidney disease) stage 4, GFR 15-29 ml/min (HCC) COPD (chronic obstructive pulmonary disease) ([facility]) Hospital Course/Significant Findings: History of Present illness: Patient is a 59 y.o. female with a past medical history significant for COPD, HFrEF, CKD stage IV, S/P aortic valve replacement with bioprosthetic valve (05/11/2020), S/P tricuspid valve replacement, Severe aortic regurgitation (05/11/2020), Severe tricuspid regurgitation, Transient cerebral ischemic attack, presenting with leg swelling and back pain. As per report, patient complains ofpitting edema in both her lower extremities. States that she had not received dialysis over 2 weeksdue to transportation issues. In the emergency department, labs significant for a known CKD with a creatinine of 5.65, hemoglobin8.8. Remaining CBC, CMP and VBG unremarkable. Chest x-ray demonstrated acute pulmona Brief Hospital Summary: In short, patient is a 59 y.o. female presenting with acute decompensated heart failure and significant edema secondary to missed dialysis sessions. Patient received multiple rounds of dialysis whileinpatient. Dialysis bed was obtained closer to patient's home residence and patient was ultimately discharged in stable condition. Assessment & Plan Acute on chronic HFrEF (heart failure with reduced ejection fraction) ([facility]) Acute pulmonary edema (HCC) Appears resolved. Acute decompensation secondary to missed dialysis sessions. TTE from 2020 demonstrating preserved EF with preserved fraction of 50 to 60%. Telemetry personally reviewed on 01/18/2025normal sinus with rates in the 60s. Continue on dialysis and IV diuresis with 4 mg of IV Bumex twice daily. Monitor urine output. Strict I's and O's Bilateral lower extremity edema Apply compression stockings. Continue IV diuresis. Nephrology following CKD (chronic kidney disease) stage 4, GFR 15-29 ml/min ([facility]) End stage renal disease on dialysis ([facility]) Nephrology consulted for ongoing diuresis. Anemia due to stage 4 chronic kidney disease ([facility]) EPO as per nephrology. Acute lumbar back pain X-ray personally reviewed no evidence of acute fracture. CT personally reviewed with no evidence offracture. Continue supportive management Chronic respiratory failure with hypoxia ([facility]) COPD (chronic obstructive pulmonary disease) ([facility]) Baseline oxygen requirements of 2 L via nasal cannula. Remains on baseline oxygen requirements. Continue to monitor Thoracoabdominal aortic aneurysm (TAAA) without rupture Measuring 4.3 cm in diameter. Recommend repeat imaging in 6 months to evaluate for expanding lesion. No surgical intervention indicated as lesion is not greater than 5 cm. Procedures Performed: None Consults: Consulting: Provider Mike Carter MD Pending Labs Order Current Status Collection Date and Time ECG AND WAVEFORMS - TELEMETRY Preliminary result 01/19/2025 7:00 AM Discharge Exam: Chest CTA -CV rrr ABD neg EXT no edema Discharge Diagnoses: Acute on chronic HFrEF (heart failure with reduced ejection fraction) ([facility]) Condition at Discharge: good Disposition: Home Discharge Medications:: Medication List CONTINUE taking these medications albuterol 90 mcg/actuation Hfaa Dose: 2 Puff Qty: 18 g Refills: 3 Commonly known as: PROVENTIL HFA;VENTOLIN HFA 2 Puffs, Inhalation, EVERY 6 HOURS AND PRN (RESP) aspirin 81 mg Chew Dose: 81 mg Qty: 90 Tablet Refills: 3 81 mg, Oral, DAILY atorvastatin 40 mg Tab Dose: 40 mg Qty: 90 Tablet Refills: 3 Commonly known as: LIPITOR 40 mg, Oral, DAILY b nyjuqbl-E-tanir acid 1 mg Cap Dose: 1 Capsule Refills: 0 Commonly known as: NEPHROCAP calcium acetate(phosphat bind) 667 mg Cap Qty: 240 Capsule Refills: 5 Commonly known as: PHOSLO Take two tablets with each meal. Take one tablet with each snack. carvediloL 12.5 mg Tab Dose: 12.5 mg Qty: 180 Tablet Refills: 3 Commonly known as: COREG 12.5 mg, Oral, 2 TIMES DAILY WITH MEALS, Take one tablet by mouth twice daily ergocalciferol 1,250 mcg (50,000 unit) Cap Dose: 50,000 Units Qty: 12 Capsule Refills: 1 Commonly known as: vitamin D 50,000 Units, Oral, WEEKLY Notes to patient: resume home schedule famotidine 20 mg Tab Dose: 20 mg Qty: 90 Tablet Refills: 3 Commonly known as: PEPCID 20 mg, Oral, NIGHTLY gabapentin 100 mg Cap Dose: 100 mg Qty: 90 Capsule Refills: 0 Commonly known as: NEURONTIN 100 mg, Oral, 3 TIMES DAILY hydrALAZINE 100 mg Tab Dose: 100 mg Qty: 90 Tablet Refills: 5 Commonly known as: APRESOLINE 100 mg, Oral, EVERY 8 HOURS SCHEDULED Notes to patient: resume home schedule isosorbide mononitrate 60 mg Tb24 Dose: 60 mg Qty: 90 Tablet Refills: 3 Commonly known as: IMDUR 60 mg, Oral, EVERY MORNING Notes to patient: resume home schedule Melatonin 3 mg Tab Dose: 10.5 mg Qty: 315 Tablet Refills: 1 10.5 mg, Oral, NIGHTLY oxyCODONE 5 mg Tab Dose: 5 mg Refills: 0 Commonly known as: ROXICODONE sertraline 50 mg Tab Dose: 50 mg Qty: 90 Tablet Refills: 3 Commonly known as: ZOLOFT 50 mg, Oral, DAILY traMADoL 50 mg Tab Dose: 50 mg Qty: 120 Tablet Refills: 0 Commonly known as: ULTRAM 50 mg, Oral, EVERY 6 HOURS PRN traZODone 50 mg Tab Dose: 50 mg Qty: 90 Tablet Refills: 1 Commonly known as: DESYREL 50 mg, Oral, NIGHTLY ASK your doctor about these medications ferrous sulfate 325 mg (65 mg iron) Tab Refills: 0 polyethylene glycol 17 gram/dose Powd Dose: 17 g Refills: 0 Commonly known as: GLYCOLAX Notes to patient: resume home schedule torsemide 20 mg Tab Qty: 450 Tablet Refills: 3 Commonly known as: DEMADEX Take five tablets once daily. Notes to patient: resume home schedule Follow Up: Noreen Ortega, DO [address] [facility] [address] Follow up in 1 week(s) Hospital Follow Up Signed: José Gaviria MD 01/19/2025 10:34 AM * Mathieu Belcher MD - 01/18/2025 12:14 PM EDT Images from the original note were not included. [facility] Patient Name: Divya Brown : 1965 Admit Date: 01/13/2025 Discharge Date: 01/18/2025 Admitting Physician: Mathieu Belcher MD Discharging Physician: Mathieu Belcher MD Reason for Hospitalization: Active Hospital Problems Thoracoabdominal aortic aneurysm (TAAA) without rupture Bilateral lower extremity edema *Acute on chronic HFrEF (heart failure with reduced ejection fraction) ([facility]) Acute lumbar back pain Chronic respiratory failure with hypoxia ([facility]) Acute pulmonary edema ([facility]) End stage renal disease on dialysis ([facility]) Anemia due to stage 4 chronic kidney disease (HCC) CKD (chronic kidney disease) stage 4, GFR 15-29 ml/min (HCC) COPD (chronic obstructive pulmonary disease) ([facility]) History of Present illness: Patient is a 59 y.o. female with a past medical history significant for COPD, HFrEF, CKD stage IV, S/P aortic valve replacement with bioprosthetic valve (05/11/2020), S/P tricuspid valve replacement, Severe aortic regurgitation (05/11/2020), Severe tricuspid regurgitation, Transient cerebral ischemic attack, presenting with leg swelling and back pain. As per report, patient complains ofpitting edema in both her lower extremities. States that she had not received dialysis over 2 weeksdue to transportation issues. In the emergency department, labs significant for a known CKD with a creatinine of 5.65, hemoglobin8.8. Remaining CBC, CMP and VBG unremarkable. Chest x-ray demonstrated acute pulmona Brief Hospital Summary: In short, patient is a 59 y.o. female presenting with acute decompensated heart failure and significant edema secondary to missed dialysis sessions. Patient received multiple rounds of dialysis whileinpatient. Dialysis bed was obtained closer to patient's home residence and patient was ultimately discharged in stable condition. Assessment & Plan Acute on chronic HFrEF (heart failure with reduced ejection fraction) ([facility]) Acute pulmonary edema (HCC) Appears resolved. Acute decompensation secondary to missed dialysis sessions. TTE from 2020 demonstrating preserved EF with preserved fraction of 50 to 60%. Telemetry personally reviewed on 01/18/2025normal sinus with rates in the 60s. Continue on dialysis and IV diuresis with 4 mg of IV Bumex twice daily. Monitor urine output. Strict I's and O's Bilateral lower extremity edema Apply compression stockings. Continue IV diuresis. Nephrology following CKD (chronic kidney disease) stage 4, GFR 15-29 ml/min ([facility]) End stage renal disease on dialysis ([facility]) Nephrology consulted for ongoing diuresis. Anemia due to stage 4 chronic kidney disease ([facility]) EPO as per nephrology. Acute lumbar back pain X-ray personally reviewed no evidence of acute fracture. CT personally reviewed with no evidence offracture. Continue supportive management Chronic respiratory failure with hypoxia ([facility]) COPD (chronic obstructive pulmonary disease) ([facility]) Baseline oxygen requirements of 2 L via nasal cannula. Remains on baseline oxygen requirements. Continue to monitor Thoracoabdominal aortic aneurysm (TAAA) without rupture Measuring 4.3 cm in diameter. Recommend repeat imaging in 6 months to evaluate for expanding lesion. No surgical intervention indicated as lesion is not greater than 5 cm. Note: Above assessment and plan is from the day prior to discharge to represent last prudent inpatient care Labs: Lab Results Component Value Date WBC 5.6 01/18/2025 HGB 8.5 (L) 01/18/2025 HCT 28.7 (L) 01/18/2025 MCV 92.2 01/18/2025 PLT 228 01/18/2025 PLT 228 01/18/2025 Lab Results Component Value Date GLU 67 (L) 01/18/2025 NA 138 01/18/2025 K 4.0 01/18/2025 CO2 25 01/18/2025 CL 102 01/18/2025 BUN 22 (H) 01/18/2025 CREATININE 5.76 (H) 01/18/2025 @ Lab Results Component Value Date HGBA1C 5.1 10/30/2024 Labs: Laboratory data and diagnostic testing reviewed 01/18/25. Labs and imaging follow-up needed: No Additional Labs/Imaging requiring follow-up Microbiology: No results found for this visit on 01/13/25 (from the past 2 weeks). Radiology/Procedures/Labs: CT LUMBAR SPINE WO CONTRAST Result Date: 01/13/2025 1. No acute lumbar spine fracture. 2. Mild multilevel lumbar spondylosis. 3. Thoracoabdominal aortic aneurysm. 4. Bilateral nonobstructing nephrolithiasis. 5. Colonic diverticulosis. 6. Tiny right pleural effusion and adjacent airspace disease. - Note: Radiology results need to be interpreted within a comprehensive clinical context. If you have questions about the radiology report, please contactthe office of the ordering clinician. XR CHEST PA AND LATERAL Result Date: 01/13/2025 Question mild pulmonary edema with likely small effusions. - Note: Radiology results need to be interpreted within a comprehensive clinical context. If you have questions about the radiology report, please contact the office of the ordering clinician. XR LUMBAR SPINE AP AND LATERAL Result Date: 01/13/2025 No acute abnormality of the lumbar spine. - Note: Radiology results need to be interpreted within acomprehensive clinical context. If you have questions about the radiology report, please contact the office of the ordering clinician. EK EKG 12 LEAD Result Date: 01/13/2025 [facility] Test Date: 2025-01-13 Pat Name: DIVYA BROWN Department: [facility]PID Room: 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 Consultants: Treatment Team: Consulting Physician: Mike Carter MD No Additional Consultants requested Discharge Vitals: BP (!) 161/76 Pulse 60 Temp 98.3 ??F (36.8 ??C) (Oral) Resp 15 Ht 5' 4 (1.626 m) Wt 154 lb 1.6 oz (69.9 kg) SpO2 99% BMI 26.45 kg/m?? Temp (24hrs), Av.1 ??F (36.7 ??C), Min:97.8 ??F (36.6 ??C), Max:98.4 ??F (36.9 ??C) BP Min: 117/61 Max: 161/76 Supplemental O2: O2 Device: Nasal cannula O2 Flow Rate (L/min): 2 lpm I/O last 3 completed shifts: In: 815 [P.O.:815] Out: 650 [Urine:650] I/O this shift: In: 380 [P.O.:100; I.V.:280] Out: 1000 Wt Readings from Last 2 Encounters: 01/18/25 154 lb 1.6 oz (69.9 kg) 10/30/24 166 lb (75.3 kg) Admit weight: Weight: 170 lb (77.1 kg) Discharge Physical Exam Constitutional: Alert and in no distress. Cardiovascular: Normal rate and regular rhythm. Exam reveals no friction rub. No murmur heard. Pulmonary/Chest: Effort normal and breath sounds normal. No respiratory distress. There are no wheezes. Abdominal: Soft. Bowel sounds are normal. No distension. No tenderness to palpation Musculoskeletal: No edema. Neurological: Grossly normal. Skin: Skin is warm and dry. No erythema. Correct Full Discharge Med List: Medication List CONTINUE taking these medications albuterol 90 mcg/actuation Hfaa Dose: 2 Puff Qty: 18 g Refills: 3 Commonly known as: PROVENTIL HFA;VENTOLIN HFA 2 Puffs, Inhalation, EVERY 6 HOURS AND PRN (RESP) aspirin 81 mg Chew Dose: 81 mg Qty: 90 Tablet Refills: 3 81 mg, Oral, DAILY atorvastatin 40 mg Tab Dose: 40 mg Qty: 90 Tablet Refills: 3 Commonly known as: LIPITOR 40 mg, Oral, DAILY b soxnspm-O-sfess acid 1 mg Cap Dose: 1 Capsule Refills: 0 Commonly known as: NEPHROCAP calcium acetate(phosphat bind) 667 mg Cap Qty: 240 Capsule Refills: 5 Commonly known as: PHOSLO Take two tablets with each meal. Take one tablet with each snack. carvediloL 12.5 mg Tab Dose: 12.5 mg Qty: 180 Tablet Refills: 3 Commonly known as: COREG 12.5 mg, Oral, 2 TIMES DAILY WITH MEALS, Take one tablet by mouth twice daily ergocalciferol 1,250 mcg (50,000 unit) Cap Dose: 50,000 Units Qty: 12 Capsule Refills: 1 Commonly known as: vitamin D 50,000 Units, Oral, WEEKLY famotidine 20 mg Tab Dose: 20 mg Qty: 90 Tablet Refills: 3 Commonly known as: PEPCID 20 mg, Oral, NIGHTLY gabapentin 100 mg Cap Dose: 100 mg Qty: 90 Capsule Refills: 0 Commonly known as: NEURONTIN 100 mg, Oral, 3 TIMES DAILY hydrALAZINE 100 mg Tab Dose: 100 mg Qty: 90 Tablet Refills: 5 Commonly known as: APRESOLINE 100 mg, Oral, EVERY 8 HOURS SCHEDULED isosorbide mononitrate 60 mg Tb24 Dose: 60 mg Qty: 90 Tablet Refills: 3 Commonly known as: IMDUR 60 mg, Oral, EVERY MORNING Melatonin 3 mg Tab Dose: 10.5 mg Qty: 315 Tablet Refills: 1 10.5 mg, Oral, NIGHTLY oxyCODONE 5 mg Tab Dose: 5 mg Refills: 0 Commonly known as: ROXICODONE sertraline 50 mg Tab Dose: 50 mg Qty: 90 Tablet Refills: 3 Commonly known as: ZOLOFT 50 mg, Oral, DAILY traMADoL 50 mg Tab Dose: 50 mg Qty: 120 Tablet Refills: 0 Commonly known as: ULTRAM 50 mg, Oral, EVERY 6 HOURS PRN traZODone 50 mg Tab Dose: 50 mg Qty: 90 Tablet Refills: 1 Commonly known as: DESYREL 50 mg, Oral, NIGHTLY ASK your doctor about these medications ferrous sulfate 325 mg (65 mg iron) Tab Refills: 0 polyethylene glycol 17 gram/dose Powd Dose: 17 g Refills: 0 Commonly known as: GLYCOLAX torsemide 20 mg Tab Qty: 450 Tablet Refills: 3 Commonly known as: DEMADEX Take five tablets once daily. Condition at Discharge: Stable Disposition: Home Follow-up: Noreen Ortega, DO [address] [facility] [place] [address] Follow up Appropriate PPE was donned during this visit Greater than 31 minutes reviewing discharge instructions, patient care, coordinating care, med rec,and/or chart review. Shared decision making was utilized with the patient and the provider. The patient vocalized approval for this aforementioned plan This document was generated utilizing dictation software. Please excuse any overlooked spelling or gramatical errrors. Mathieu Belcher MD., [place]. 01/18/2025 12:14 PM documented in this encounter Discharge Instructions * Attachments The following attachments cannot be sent through Care Everywhere. * Heart failure ([place]er) documented in this encounter Medications at Time of Discharge albuterol (PROVENTIL HFA;VENTOLIN HFA) 90 mcg/actuation Inhl HFA Aerosol InhalerIndications :Chronic obstructive pulmonary disease, unspecified COPD type (HCC) Inhale 2 Puffs into the lungs every 6 hours and prn. 18 g 3 10/30/2024 aspirin 81 mg Oral Tablet, ChewableIndication s:Essential hypertension Take 1 Tablet by mouth daily for 360 days. 90 Tablet 3 10/30/2024 atorvastatin (LIPITOR) 40 mg Oral TabletIndications: Ischemic heart disease Take 1 Tablet by mouth daily. 90 Tablet 3 10/30/2024 b wgyeqsi-K-qvjuc acid (NEPHROCAP) 1 mg Oral Capsule Take 1 Capsule by mouth daily. calcium acetate,phosphat bind, (PHOSLO) 667 mg Oral Capsule Take two tablets with each meal. Take one tablet with each snack. 240 Capsule 5 06/26/2023 carvediloL (COREG) 12.5 mg Oral TabletIndications: Essential hypertension Take 1 Tablet by mouth 2 times daily (with meals) for 360 days. Take one tablet by mouth twice daily 180 Tablet 3 10/30/2024 6 ergocalciferol (VITAMIN D) 1,250 mcg (50,000 unit) Oral Capsule Take 1 Capsule by mouth once a week. 12 Capsule 1 05/15/2021 famotidine (PEPCID) 20 mg Oral TabletIndications: GERD without esophagitis Take 1 Tablet by mouth nightly for 360 days. 90 Tablet 3 10/30/2024 6 ferrous sulfate 325 mg (65 mg iron) Oral Tablet Take by mouth daily. hydrALAZINE (APRESOLINE) 100 mg Oral TabletIndications: Essential hypertension Take 1 Tablet by mouth every 8 hours. 90 Tablet 5 10/30/2024 isosorbide mononitrate (IMDUR) 60 mg Oral Tablet Sustained Release 24 hrIndications:Esse ntial hypertension,CKD (chronic kidney disease) stage 4, GFR 15-29 ml/min ([facility]) Take 1 Tablet by mouth every morning for 360 days. 90 Tablet 3 10/30/2024 6 Melatonin 3 mg Oral TabletIndications: Insomnia, persistent Take 3.5 Tablets by mouth nightly for 180 days. 315 Tablet 1 10/30/2024 5 oxyCODONE (ROXICODONE) 5 mg Oral Tablet Take 5 mg by mouth every 6 hours as needed. 02/21/2022 polyethylene glycol (GLYCOLAX) 17 gram/dose Oral Powder Take 17 g by mouth daily. sertraline (ZOLOFT) 50 mg Oral TabletIndications: Recurrent mild major depressive disorder with anxiety Take 1 Tablet by mouth daily. 90 Tablet 3 10/30/2024 torsemide (DEMADEX) 20 mg Oral TabletIndications: Hypertensive urgency Take five tablets once daily. 450 Tablet 3 07/09/2023 traMADoL (ULTRAM) 50 mg Oral TabletIndications: Essential hypertension,Other chronic pain Take 1 Tablet by mouth every 6 hours as needed for Pain. 120 Tablet 10/30/2024 traZODone (DESYREL) 50 mg Oral TabletIndications: Insomnia, persistent Take 1 Tablet by mouth nightly for 180 days. 90 Tablet 1 10/30/2024 5 documented as of this encounter Discharge Disposition Disposition Code Departure Means Destination Comment s Home or Self Custodial documented in this encounter Progress Notes * Raegan Page MD - 01/19/2025 2:22 PM EDT Images from the original note were not included. [facility] Daily Progress Note Subjective: 59 y.o. female who we are seeing in consultation for ESRD Interval history Events overnight reviewed. no new complaints Objective: VITALS: Vitals: 01/19/25 1305 BP: Pulse: 64 Resp: Temp: SpO2: Temp (24hrs), Av.2 ??F (36.8 ??C), Min:97.8 ??F (36.6 ??C), Max:98.6 ??F (37 ??C) BP Min: 121/53 Max: 142/73 Pulse Av.8 Min: 55 Max: 80 24HR INTAKE/OUTPUT: Intake/Output Summary (Last 24 hours) at 01/19/2025 1651 Last data filed at 01/19/2025 1201 Gross per 24 hour Intake 680 ml Output 300 ml Net 380 ml Wt Readings from Last 3 Encounters: 01/19/25 154 lb (69.9 kg) 10/30/24 166 lb (75.3 kg) 06/10/24 176 lb 4.8 oz (80 kg) Exam: [id number] normocephalic, atraumatic, sclera and conjunctiva clear, PERRL, EOMI, NAD Neck supple, midline trachea, no tenderness, no mass, no thyromegaly, and no JVD Respiratory clear to auscultation bilaterally, normal airflow, and normal effort Cardiovascular S1, S2 normal; no murmur, rub; regular rate and rhythm Abdomen soft, non-tender; bowel sounds normal; Musculoskeletal-NeuroPsych no focal neurological deficits, affect appropriate, and alert, oriented x3 Extremities no edema Data:- CBC: Recent Labs 01/15/25 0538 01/16/25 0613 01/18/25 0608 WBC 5.7 5.3 5.6 HGB 9.4* 8.6* 8.5* HCT 30.9* 28.5* 28.7* PLT 241 268 268 228 228 RENAL FUNCTION PANEL: Recent Labs 01/15/25 0538 01/16/25 0613 01/18/25 0608 NA 135* 136 138 K 4.0 3.9 4.0 CL 102 101 102 CO2 23 24 25 BUN 20 9 22* CREATININE 3.69* 2.83* 5.76* CALCIUM 8.7 8.5* 8.6 PHOS -- -- 6.2* Lab Results Component Value Date ALKPHOS 99 01/13/2025 ALT 8 01/13/2025 AST 14 01/13/2025 PROT 7.0 01/13/2025 LABBILI 0.3 01/13/2025 Coagulation: ABGs: Recent Labs 01/13/25 1403 INSPIREDO2 2L Microbiology: No results found for this visit on 01/13/25 (from the past week). No results found. Assessment & Plan : ESRD: HD placement at [facility] MW at 1 pm May need help with setting up dialysis transportation, discussed with the RN --patient previously on HD at [facility] until she moved back to [facility] --has not had HD in about 3 weeks; was on HD in [place] --previously cared for by our practice --HD MWF --will need placement locally; consulted SW. 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 Spoke with patient's daughter, she is working and will be here around 630pm to transport home. RN and CLOTHING MANAGER updated. No additional needs. * Raegan Page MD - 01/18/2025 4:11 PM EDT Images from the original note were not included. [facility] Daily Progress Note Subjective: 59 y.o. female who we are seeing in consultation for ESRD Interval history Events overnight reviewed. no new complaints Objective: VITALS: Vitals: 01/18/25 1503 BP: Pulse: 60 Resp: Temp: SpO2: Temp (24hrs), Av.1 ??F (36.7 ??C), Min:97.8 ??F (36.6 ??C), Max:98.3 ??F (36.8 ??C) BP Min: 120/60 Max: 161/76 Pulse Av Min: 58 Max: 91 24HR INTAKE/OUTPUT: Intake/Output Summary (Last 24 hours) at 01/18/2025 1611 Last data filed at 01/18/2025 1150 Gross per 24 hour Intake 600 ml Output 1550 ml Net -950 ml Wt Readings from Last 3 Encounters: 01/18/25 154 lb 1.6 oz (69.9 kg) 10/30/24 166 lb (75.3 kg) 06/10/24 176 lb 4.8 oz (80 kg) Exam: [id number] normocephalic, atraumatic, sclera and conjunctiva clear, PERRL, EOMI, NAD Neck supple, midline trachea, no tenderness, no mass, no thyromegaly, and no JVD Respiratory clear to auscultation bilaterally, normal airflow, and normal effort Cardiovascular S1, S2 normal; no murmur, rub; regular rate and rhythm Abdomen soft, non-tender; bowel sounds normal; Musculoskeletal-NeuroPsych no focal neurological deficits, affect appropriate, and alert, oriented x3 Extremities no edema Data:- CBC: Recent Labs 01/15/25 0538 01/16/25 0613 01/18/25 0608 WBC 5.7 5.3 5.6 HGB 9.4* 8.6* 8.5* HCT 30.9* 28.5* 28.7* PLT 241 268 268 228 228 RENAL FUNCTION PANEL: Recent Labs 01/15/25 0538 01/16/25 0613 01/18/25 0608 NA 135* 136 138 K 4.0 3.9 4.0 CL 102 101 102 CO2 BUN 20 9 22* CREATININE 3.69* 2.83* 5.76* CALCIUM 8.7 8.5* 8.6 PHOS -- -- 6.2* Lab Results Component Value Date ALKPHOS 99 01/13/2025 ALT 8 01/13/2025 AST 14 01/13/2025 PROT 7.0 01/13/2025 LABBILI 0.3 01/13/2025 Coagulation: ABGs: Recent Labs 01/13/25 1403 INSPIREDO2 2L Microbiology: No results found for this visit on 01/13/25 (from the past week). No results found. Assessment & Plan : ESRD: HD placement at [facility] MW at 1 pm May need help with setting up dialysis transportation, discussed with the RN --patient previously on HD at [facility] until she moved back to [facility] --has not had HD in about 3 weeks; was on HD in [place] --previously cared for by our practice --HD MW --will need placement locally; consulted SW. 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 Patient's daughter will provide transportation tomorrow. Message left for daughter. SW to follow. * John Noonan MSW - 01/18/2025 3:00 PM EDT 01/18 SW- Patient updated regarding updated HD transfer to [facility] schedule. Patient states she has no one to pick her up today as her daughter is working until 11pm. Will attempt to schedule wheelchair MD jose eduardo updated. SW to follow. * Mathieu Belcher MD - 01/18/2025 1:58 PM EDTAssociated Problem(s): Acute on chronic HFrEF (heart failure with reduced ejection fraction) (HCC) Appears resolved. Acute decompensation secondary to missed dialysis sessions. TTE from 2020 demonstrating preserved EF with preserved fraction of 50 to 60%. Telemetry personally reviewed on 01/18/2025normal sinus with rates in the 60s. Continue on dialysis and IV diuresis with 4 mg of IV Bumex twice daily. Monitor urine output. Strict I's and O's * Mathieu Belcher MD - 01/18/2025 1:58 PM EDTAssociated Problem(s): Acute pulmonary edema (HCC) Appears resolved. Acute decompensation secondary to missed dialysis sessions. TTE from 2020 demonstrating preserved EF with preserved fraction of 50 to 60%. Telemetry personally reviewed on 01/18/2025normal sinus with rates in the 60s. Continue on dialysis and IV diuresis with 4 mg of IV Bumex twice daily. Monitor urine output. Strict I's and O's * Mathieu Belcher MD - 01/18/2025 1:58 PM EDTAssociated Problem(s): Bilateral lower extremity edema Apply compression stockings. Continue IV diuresis. Nephrology following * Mathieu Belcher MD - 01/18/2025 1:58 PM EDTAssociated Problem(s): CKD (chronic kidney disease) stage 4, GFR 15-29 ml/min (HCC) Nephrology consulted for ongoing diuresis. * Mathieu Belcher MD - 01/18/2025 1:58 PM EDTAssociated Problem(s): End stage renal disease on dialysis (HCC) Nephrology consulted for ongoing diuresis. * Mathieu Belcher MD - 01/18/2025 1:58 PM EDTAssociated Problem(s): Anemia due to stage 4 chronic kidney disease (HCC) EPO as per nephrology. * Mathieu Belcher MD - 01/18/2025 1:58 PM EDTAssociated Problem(s): Acute lumbar back pain X-ray personally reviewed no evidence of acute fracture. CT personally reviewed with no evidence offracture. Continue supportive management * Mathieu Belcher MD - 01/18/2025 1:58 PM EDTAssociated Problem(s): Chronic respiratory failure with hypoxia (HCC) Baseline oxygen requirements of 2 L via nasal cannula. Remains on baseline oxygen requirements. Continue to monitor * Mathieu Belcher MD - 01/18/2025 1:58 PM EDTAssociated Problem(s): COPD (chronic obstructive pulmonary disease) (HCC) Baseline oxygen requirements of 2 L via nasal cannula. Remains on baseline oxygen requirements. Continue to monitor * Mathieu Belcher MD - 01/18/2025 1:58 PM EDTAssociated Problem(s): Thoracoabdominal aortic aneurysm (TAAA) without rupture Measuring 4.3 cm in diameter. Recommend repeat imaging in 6 months to evaluate for expanding lesion. No surgical intervention indicated as lesion is not greater than 5 cm. * John Noonan MSW - 01/18/2025 12:11 PM EDT 01/18 SW- Patient has been approved to transfer to [facility] as requested. Schedule will be MWF 1pm beginning 01/20. Patient's daughter to provide transportation at discharge. Sw to follow. * Padmaja Baez RN - 01/18/2025 12:05 PM EDT HD Weights from 01/18/25 0605 to 01/18/25 1205 Date/Time Pre HD Weight Post Treatment Weight Scale Type Used [facility] 01/18/25 1150 69.9 kg (154 lb 1.6 oz) 69.3 kg (152 lb 12.5 oz) Standup [place] 01/18/25 0816 69.9 kg (154 lb 1.6 oz) -- Standup [place] Est dry weight/Fluid Removal goal: 69.5 kg (153 lb 3.5 oz) Weight difference: -0.6 kg Net Fluid removal: 620 Heparin load: 2000 units Heparin maintenance: 500 units/hr Medications given during HD: Epogen and Heparin Total hours: 3.5 Tolerated tx: well Access Used: AV fistula # Arterial Cannulations:1 # Venous Cannulations: 1 Hemodialysis Arteriovenous fistula Left Forearm-Needle Size (gauge): 15 Treatment summary: Tolerated HD well. No concerns with AVF cannulation or post HD clotting. BP stable. UF of 0.6 L. * Mike Carter MD - 01/17/2025 1:51 PM EDT Images from the original note were not included. [facility] Progress Note Admit Date: 01/13/2025 LOS: 3 days Assessment/Plan: ESRD: --patient previously on HD at [facility] until she moved back to [facility] --has not had HD in about 3 weeks; was on HD in [place] --previously cared for by our practice --HD MWF --last post weight 69.6 kg with 3 kg off --will need placement locally; consulted SW. Fluid Overload: --makes urine --high dose diuretics --vastly improved now HTN: --seems likely volume driven; now vastly better --will see if we can mobilize some fluid with high dose diuretics --could add MONICA/ARB as needed Anemia: --hgb 8.6 --epo deficient --will start ELVIN Epogen 2000 units per treatment --replete iron stores CKD-MBD: --will check phos --treat accordingly --vit d deficient, start ergo weekly Could theoretically go home once outpatient HD arrangements made HPI: Divya Brown is a(n)59 y.o. female that we have been consulted to see regarding esrd Soc Hx: Family not present in the room Subjective: No new issues overnight. Doing fine Scheduled Meds: aspirin 81 mg Oral Daily atorvastatin 40 mg Oral Daily b [id number]-[id number] acid 1 Capsule Oral Daily bumetanide 4 mg Intravenous BID Diuretic calcium acetate(phosphat bind) 667 mg Oral TID WM carvediloL 12.5 mg Oral BID WM ergocalciferol 50,000 Units Oral QW famotidine 20 mg Oral Nightly ferrous sulfate 325 mg Oral Daily heparin, porcine (PF) 5,000 Units Subcutaneous 3 times per day lidocaine 3 Patch Transdermal Daily sertraline 50 mg Oral Daily traZODone 50 mg Oral Nightly Continuous Infusions: PRN Meds:acetaminophen, albuterol OR albuterol, aluminum & magnesium hydroxide-simethicone,hydrALAZINE, melatonin, ondansetron OR ondansetron OR metoclopramide HCl, morphine OR morphine, oxyCODONE-acetaminophen, polyethylene glycol, senna Review of Systems: Constitutional: negative Respiratory: negative Cardiovascular: negative Gastrointestinal: negative Genitourinary:negative Neurological: negative All other systems were reviewed and were not pertinent to the clinical situation. Objective: BP 131/58 (BP Location: Right arm, Patient Position: Semi Fowlers) Pulse 61 Temp 98 ??F (36.7 ??C) (Oral) Resp 18 Ht 5' 4 (1.626 m) Wt 153 lb 11.2 oz (69.7 kg) SpO2 99% BMI 26.38 kg/m?? Patient Vitals for the past 24 hrs: BP Temp Temp src Pulse Resp SpO2 Weight 01/17/25 1309 -- -- -- 61 -- -- -- 01/17/25 1158 131/58 98 ??F (36.7 ??C) Oral 62 18 99 % -- 01/17/25 1103 -- -- -- 59 -- -- -- 01/17/25 0830 125/63 98.9 ??F (37.2 ??C) Oral 73 18 94 % -- 01/17/25 0540 109/45 97.9 ??F (36.6 ??C) Oral 66 16 96 % -- 01/17/25 0506 -- -- -- 72 -- -- 153 lb 11.2 oz (69.7 kg) 01/17/25 0310 -- -- -- 64 -- -- -- 01/17/25 0104 -- -- -- 69 -- -- -- 01/17/25 0035 118/59 97.8 ??F (36.6 ??C) Oral 79 16 100 % -- 01/16/25 2307 -- -- -- 66 -- -- -- 01/16/25 2115 122/60 98.1 ??F (36.7 ??C) Oral 75 16 95 % -- 01/16/25 1747 116/54 -- -- 78 -- -- -- 01/16/25 1659 -- -- -- 67 -- -- -- 01/16/25 1609 105/48 -- -- 72 -- -- -- 01/16/25 1524 95/47 98.2 ??F (36.8 ??C) Oral 74 16 94 % -- 01/16/25 1513 -- -- -- 67 -- -- -- I/O last 3 completed shifts: In: 1050 [P.O.:1050] Out: 100 [Urine:100] I/O this shift: In: 120 [P.O.:120] Out: - [id number] normocephalic, atraumatic, sclera and conjunctiva clear, PERRL, EOMI, oropharynx clear, good dental/gum hygiene and normal nose Neck supple, midline trachea, no tenderness, no mass, no thyromegaly, and no JVD Respiratory clear to auscultation bilaterally, normal airflow, and normal effort Cardiovascular S1, S2 normal; no murmur, rub or gallop; regular rate and rhythm Abdomen soft, non-tender; bowel sounds normal; no masses, no organomegaly Lymphatic no cervical adenopathy Musculoskeletal-NeuroPsych no focal neurological deficits, affect appropriate, and alert, oriented x3 Extremities no cyanosis, clubbing or edema Skin no rashes or suspicious lesions, no evidence of bleeding or bruising Data:- CBC: Recent Labs 01/14/25 0543 01/15/25 0538 01/16/25 0613 WBC 6.0 5.7 5.3 HGB 8.1* 9.4* 8.6* HCT 27.1* 30.9* 28.5* PLT 202 241 268 268 RENAL FUNCTION PANEL: Recent Labs 01/14/25 0543 01/15/25 0538 01/16/25 0613 NA 139 135* 136 K 4.4 4.0 3.9 CL 105 102 101 CO2 21* 23 24 BUN 44* 20 9 CREATININE 5.88* 3.69* 2.83* CALCIUM 8.2* 8.7 8.5* Lab Results Component Value Date ALKPHOS 99 01/13/2025 ALT 8 01/13/2025 AST 14 01/13/2025 PROT 7.0 01/13/2025 LABBILI 0.3 01/13/2025 Coagulation: ABGs: Recent Labs 01/13/25 1403 INSPIREDO2 2L No results found. Mike Carter MD, NIRANJAN [facility] Please feel free to reach out via [employer] Secure Chat * Mathieu Belcher MD - 01/17/2025 12:33 PM EDTAssociated Problem(s): Acute on chronic HFrEF (heart failure with reduced ejection fraction) (HCC) Appears resolved. Acute decompensation secondary to missed dialysis sessions. TTE from 2020 demonstrating preserved EF with preserved fraction of 50 to 60%. Telemetry personally reviewed on 01/17/2025normal sinus with rates in the 60s. Continue on dialysis and IV diuresis with 4 mg of IV Bumex twice daily. Monitor urine output. Strict I's and O's * Mathieu Belcher MD - 01/17/2025 12:33 PM EDTAssociated Problem(s): Acute pulmonary edema (HCC) Appears resolved. Acute decompensation secondary to missed dialysis sessions. TTE from 2020 demonstrating preserved EF with preserved fraction of 50 to 60%. Telemetry personally reviewed on 01/17/2025normal sinus with rates in the 60s. Continue on dialysis and IV diuresis with 4 mg of IV Bumex twice daily. Monitor urine output. Strict I's and O's * Mathieu Belcher MD - 01/17/2025 5:50 AM EDTAssociated Problem(s): Bilateral lower extremity edema Apply compression stockings. Continue IV diuresis. Nephrology following * Mathieu Belcher MD - 01/17/2025 5:50 AM EDTAssociated Problem(s): CKD (chronic kidney disease) stage 4, GFR 15-29 ml/min (HCC) Nephrology consulted for ongoing diuresis. * Mathieu Belcher MD - 01/17/2025 5:50 AM EDTAssociated Problem(s): End stage renal disease on dialysis (HCC) Nephrology consulted for ongoing diuresis. * Mathieu Belcher MD - 01/17/2025 5:50 AM EDTAssociated Problem(s): Anemia due to stage 4 chronic kidney disease (HCC) EPO as per nephrology. * Mathieu Belcher MD - 01/17/2025 5:50 AM EDTAssociated Problem(s): Acute lumbar back pain X-ray personally reviewed no evidence of acute fracture. CT personally reviewed with no evidence offracture. Continue supportive management * Mathieu Belcher MD - 01/17/2025 5:50 AM EDTAssociated Problem(s): Chronic respiratory failure with hypoxia (HCC) Baseline oxygen requirements of 2 L via nasal cannula. Remains on baseline oxygen requirements. Continue to monitor * Mathieu Belcher MD - 01/17/2025 5:50 AM EDTAssociated Problem(s): COPD (chronic obstructive pulmonary disease) ([facility]) Baseline oxygen requirements of 2 L via nasal cannula. Remains on baseline oxygen requirements. Continue to monitor * Mathieu Belcher MD - 01/17/2025 5:50 AM EDTAssociated Problem(s): Thoracoabdominal aortic aneurysm (TAAA) without rupture Measuring 4.3 cm in diameter. Recommend repeat imaging in 6 months to evaluate for expanding lesion. No surgical intervention indicated as lesion is not greater than 5 cm. * Mathieu Belcher MD - 01/17/2025 5:50 AM EDT Images from the original note were not included. HOSPITALIST PROGRESS NOTE Assessment & Plan Acute on chronic HFrEF (heart failure with reduced ejection fraction) ([facility]) Acute pulmonary edema ([facility]) Appears resolved. Acute decompensation secondary to missed dialysis sessions. TTE from 2020 demonstrating preserved EF with preserved fraction of 50 to 60%. Telemetry personally reviewed on 01/17/2025normal sinus with rates in the 60s. Continue on dialysis and IV diuresis with 4 mg of IV Bumex twice daily. Monitor urine output. Strict I's and O's Bilateral lower extremity edema Apply compression stockings. Continue IV diuresis. Nephrology following CKD (chronic kidney disease) stage 4, GFR 15-29 ml/min ([facility]) End stage renal disease on dialysis ([facility]) Nephrology consulted for ongoing diuresis. Anemia due to stage 4 chronic kidney disease ([facility]) EPO as per nephrology. Acute lumbar back pain X-ray personally reviewed no evidence of acute fracture. CT personally reviewed with no evidence offracture. Continue supportive management Chronic respiratory failure with hypoxia ([facility]) COPD (chronic obstructive pulmonary disease) ([facility]) Baseline oxygen requirements of 2 L via nasal cannula. Remains on baseline oxygen requirements. Continue to monitor Thoracoabdominal aortic aneurysm (TAAA) without rupture Measuring 4.3 cm in diameter. Recommend repeat imaging in 6 months to evaluate for expanding lesion. No surgical intervention indicated as lesion is not greater than 5 cm. V.T.E. Prophylaxis: heparin (porcine) Diet: RENAL 60 GM CONSISTENT CARB, RENAL 2 DIET Code Status: Full Code Dispo: Arrangement for outpatient dialysis. Likely discharge on Saturday Active Hospital Problems Diagnosis *Acute on chronic HFrEF (heart failure with reduced ejection fraction) (HCC) Thoracoabdominal aortic aneurysm (TAAA) without rupture Bilateral lower extremity edema Acute lumbar back pain Chronic respiratory failure with hypoxia (HCC) Acute pulmonary edema (HCC) End stage renal disease on dialysis (HCC) Anemia due to stage 4 chronic kidney disease (HCC) CKD (chronic kidney disease) stage 4, GFR 15-29 ml/min (HCC) COPD (chronic obstructive pulmonary disease) (HCC) Subjective: No acute events overnight Denies chest pain, shortness of breath, nausea, diarrhea nor vomiting In no acute distress Objective: BP 118/59 (BP Location: Right arm, Patient Position: Semi Fowlers) Pulse 66 Temp 97.9 ??F (36.6??C) (Oral) Resp 16 Ht 5' 4 (1.626 m) Wt 153 lb 11.2 oz (69.7 kg) SpO2 96% BMI 26.38 kg/m?? Temp (24hrs), Av.1 ??F (36.7 ??C), Min:97.8 ??F (36.6 ??C), Max:98.4 ??F (36.9 ??C) BP Min: 95/47 Max: 122/60 Supplemental O2: O2 Device: Nasal cannula O2 Flow Rate (L/min): 2 lpm I/O last 3 completed shifts: In: 1050 [P.O.:1050] Out: 100 [Urine:100] No intake/output data recorded. Wt Readings from Last 2 Encounters: 01/17/25 153 lb 11.2 oz (69.7 kg) 10/30/24 166 lb (75.3 kg) Admit weight: Weight: 170 lb (77.1 kg) Labs: Lab Results Component Value Date WBC 5.3 01/16/2025 HGB 8.6 (L) 01/16/2025 HCT 28.5 (L) 01/16/2025 MCV 89.1 01/16/2025 PLT 268 01/16/2025 PLT 268 01/16/2025 Lab Results Component Value Date GLU 62 (L) 01/16/2025 NA 136 01/16/2025 K 3.9 01/16/2025 CO2 24 01/16/2025 CL 101 01/16/2025 BUN 9 01/16/2025 CREATININE 2.83 (H) 01/16/2025 Labs: Laboratory data and diagnostic testing reviewed 01/17/25. Microbiology: No results found for this visit on 01/13/25 (from the past 2 weeks). Lab Results Component Value Date [place] Not Detected 04/05/2021 Medications: Scheduled Meds: aspirin 81 mg Oral Daily atorvastatin 40 mg Oral Daily b ppfonbx-M-kemly acid 1 Capsule Oral Daily bumetanide 4 mg Intravenous BID Diuretic calcium acetate(phosphat bind) 667 mg Oral TID WM carvediloL 12.5 mg Oral BID WM ergocalciferol 50,000 Units Oral QW famotidine 20 mg Oral Nightly ferrous sulfate 325 mg Oral Daily heparin, porcine (PF) 5,000 Units Subcutaneous 3 times per day sertraline 50 mg Oral Daily traZODone 50 mg Oral Nightly Continuous Infusions: PRN Meds:.acetaminophen, albuterol OR albuterol, aluminum & magnesium hydroxide-simethicone, hydrALAZINE, melatonin, ondansetron OR ondansetron OR metoclopramide HCl, morphine OR morphine, oxyCODONE-acetaminophen, polyethylene glycol, senna Radiology/Procedures/Labs: No results found. Radiology: Imaging and diagnostic testing reviewed 01/17/25. Physical Exam: Constitutional: Alert and oriented. No distress. Cardiovascular: Normal rate and regular rhythm. Exam reveals no friction rub. No murmur heard. Trace edema. Pulmonary/Chest: Effort normal and breath sounds normal. No respiratory distress. There are no wheezes. Abdominal: Soft. Bowel sounds are normal. No distension. There is no tenderness. There is no rebound and no guarding. Musculoskeletal: Normal Muscle bulk. Normal range of motion Neurological: Nonfocal. Skin: Skin is warm and dry. No erythema. Appropriate PPE was donned during this visit Discussed with staff--bedside rounds with RN, care conference with charge nurse, care coordination/social service and/or pharmacist. This document was generated utilizing dictation software. Please excuse any overlooked spelling or gramatical errrors. Mathieu Belcher MD., [place]. 01/17/2025 5:50 AM * Mike Carter MD - 01/16/2025 2:01 PM EDT Images from the original note were not included. [facility] Progress Note Admit Date: 01/13/2025 LOS: 2 days Assessment/Plan: ESRD: --patient previously on HD at [facility] until she moved back to [facility] --has not had HD in about 3 weeks; was on HD in [place] --previously cared for by our practice --HD MWF --last post weight 69.6 kg with 3 kg off --will need placement locally; consulted SW. 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 female that we have been consulted to see regarding esrd Soc Hx: Family not present in the room Subjective: Patient doing okay today. No new issues Scheduled Meds: aspirin 81 mg Oral Daily atorvastatin 40 mg Oral Daily b mycnlun-K-zoopu acid 1 Capsule Oral Daily bumetanide 4 mg Intravenous BID Diuretic calcium acetate(phosphat bind) 667 mg Oral TID WM carvediloL 12.5 mg Oral BID WM ergocalciferol 50,000 Units Oral QW famotidine 20 mg Oral Nightly ferrous sulfate 325 mg Oral Daily heparin, porcine (PF) 5,000 Units Subcutaneous 3 times per day hydrALAZINE 100 mg Oral 3 times per day isosorbide mononitrate 60 mg Oral QAM sertraline 50 mg Oral Daily traZODone 50 mg Oral Nightly Continuous Infusions: PRN Meds:acetaminophen, albuterol OR albuterol, aluminum & magnesium hydroxide-simethicone,hydrALAZINE, melatonin, ondansetron OR ondansetron OR metoclopramide HCl, morphine OR morphine, oxyCODONE-acetaminophen, polyethylene glycol, senna Review of Systems: Constitutional: negative Respiratory: negative Cardiovascular: negative Gastrointestinal: negative Genitourinary:negative Neurological: negative All other systems were reviewed and were not pertinent to the clinical situation. Objective: BP 98/47 (BP Location: Right arm, Patient Position: Semi Fowlers) Pulse 62 Temp 98.4 ??F (36.9 ??C) (Oral) Resp 16 Ht 5' 4 (1.626 m) Wt 153 lb 3.2 oz (69.5 kg) SpO2 95% BMI 26.30 kg/m?? Patient Vitals for the past 24 hrs: BP Temp Temp src Pulse Resp SpO2 Weight 01/16/25 1316 -- -- -- 62 -- -- -- 01/16/25 1139 98/47 98.4 ??F (36.9 ??C) Oral 63 16 95 % -- 01/16/25 1104 -- -- -- 64 -- -- -- 01/16/25 0837 121/97 98.2 ??F (36.8 ??C) Oral 75 16 95 % -- 01/16/25 0527 -- -- -- 75 -- -- -- 01/16/25 0521 127/55 97.5 ??F (36.4 ??C) Oral 72 16 99 % -- 01/16/25 0439 -- -- -- -- -- -- 153 lb 3.2 oz (69.5 kg) 01/16/25 0314 -- -- -- 63 -- -- -- 01/15/25 2334 108/52 98.1 ??F (36.7 ??C) Oral 77 17 95 % -- 01/15/25 2320 -- -- -- 80 -- -- -- 01/15/252025 100/43 98.3 ??F (36.8 ??C) Oral 74 18 94 % -- 01/15/25 1805 125/66 98 ??F (36.7 ??C) Oral 63 20 96 % -- 01/15/25 1703 115/64 97.4 ??F (36.3 ??C) Oral 68 20 98 % -- 01/15/25 1700 115/64 -- -- -- -- -- -- 01/15/25 1645 111/61 -- -- 68 (!) 22 98 % -- 01/15/25 1630 107/61 -- -- 70 18 98 % -- 01/15/25 1615 111/59 -- -- 61 20 98 % -- 01/15/25 1600 104/63 -- -- 62 20 100 % -- 01/15/25 1534 108/59 -- -- 65 19 98 % -- 01/15/25 1530 97/54 -- -- 63 18 99 % -- 01/15/25 1513 98/51 -- -- 61 (!) 22 93 % -- 01/15/25 1505 99/57 -- -- 64 19 98 % -- 01/15/25 1500 92/54 -- -- 58 (!) 21 97 % -- 01/15/25 1430 105/53 -- -- 60 20 97 % -- 01/15/25 1415 107/60 -- -- 64 20 98 % -- I/O last 3 completed shifts: In: 300 [I.V.:300] Out: 3310 [Urine:300] I/O this shift: In: 100 [P.O.:100] Out: - [place]-Eanz-QHT normocephalic, atraumatic, sclera and conjunctiva clear, PERRL, EOMI, oropharynx clear, good dental/gum hygiene and normal nose Neck supple, midline trachea, no tenderness, no mass, no thyromegaly, and no JVD Respiratory clear to auscultation bilaterally, normal airflow, and normal effort Cardiovascular S1, S2 normal; no murmur, rub or gallop; regular rate and rhythm Abdomen soft, non-tender; bowel sounds normal; no masses, no organomegaly Lymphatic no cervical adenopathy Musculoskeletal-NeuroPsych no focal neurological deficits, affect appropriate, and alert, oriented x3 Extremities no cyanosis, clubbing or edema Skin no rashes or suspicious lesions, no evidence of bleeding or bruising Data:- CBC: Recent Labs 01/14/25 0543 01/15/25 0538 01/16/25 0613 WBC 6.0 5.7 5.3 HGB 8.1* 9.4* 8.6* HCT 27.1* 30.9* 28.5* PLT 202 241 268 268 RENAL FUNCTION PANEL: Recent Labs 01/14/25 0543 01/15/25 0538 01/16/25 0613 NA 139 135* 136 K 4.4 4.0 3.9 CL 105 102 101 CO2 21* 23 24 BUN 44* 20 9 CREATININE 5.88* 3.69* 2.83* CALCIUM 8.2* 8.7 8.5* Lab Results Component Value Date ALKPHOS 99 01/13/2025 ALT 8 01/13/2025 AST 14 01/13/2025 PROT 7.0 01/13/2025 LABBILI 0.3 01/13/2025 Coagulation: ABGs: Recent Labs 01/13/25 1403 INSPIREDO2 2L No results found. Mike Carter MD, [facility] Please feel free to reach out via [employer] Secure Chat * Mathieu Belcher MD - 01/16/2025 1:40 PM EDTAssociated Problem(s): Acute on chronic HFrEF (heart failure with reduced ejection fraction) (HCC) Appears resolved. Acute decompensation secondary to missed dialysis sessions. TTE from 2020 demonstrating preserved EF with preserved fraction of 50 to 60%. Telemetry personally reviewed on 01/16/2025noted to be normal sinus. Continue on dialysis and IV diuresis with 4 mg of IV Bumex twice daily. Monitor urine output. Strict I's and O's * Mathieu Belcher MD - 01/16/2025 1:40 PM EDTAssociated Problem(s): Acute pulmonary edema (HCC) Appears resolved. Acute decompensation secondary to missed dialysis sessions. TTE from 2020 demonstrating preserved EF with preserved fraction of 50 to 60%. Telemetry personally reviewed on 01/16/2025noted to be normal sinus. Continue on dialysis and IV diuresis with 4 mg of IV Bumex twice daily. Monitor urine output. Strict I's and O's * Cecilia Heard MSW - 01/16/2025 1:23 PM EDT 01/16/25 1220 Discharge Planning Evaluation Completed by CC/SW Yes Does patient meet high risk triggers? Diagnosis of CHF/COPD/AMI/Pneumonia;History of non-compliance/nonadherence to medical plan;Is patient high risk of readmission on predictive analytic or RRS score Is patient in a Bundle Payment initiative? N/A IP Mental Health Referral Pending No Observation Information Provided to Patient/Family N/A Who you interviewed In person interview with patient Mental Status Alert and oriented Decision Maker Patient Who does pt identify as their caregiver/support person who will be their active partner in the dc planning process Pt identified caregiver/support person for dc planning process Caregiver Name Ingris Caregiver Does patient need training designer? No Activities of Daily Living Prior to Admission Independent with ADLS;Independent with Homemaking;Independent with mobility DME Used at Home Oxygen Is portable tank at hospital? [place] [employer] D[employer] Supplier/Provider Pt. is unsure of what company she uses for her oxygen. Patient's Living Arrangments Prior to Admission? Private Residence With Other(s) Private Residence With Other(s) Children Support Systems Children Is PCP listed on facesheet correct? Yes Quality of Support System Adequate Identified psychosocial/financial issues Arrangements for specialized assistance where appropriate i.e. transportation, community resources, life-line Follow Up Assigned To: Referral to Social work not necessary Social Work already completing dc planning assessment APS/CPS Report Made No Anticipated post-acute care needs Home with OP Follow Up Discussed discharge plans with Patient/Family/Caregiver/Support Person Yes, Discussed with patient Discussed discharge plans with Care Team at [facility] Yes, with nurse in attendance;Yes, with doctor in attendance Patient's goals for recovery Return to Prior Level of Functioning Actual Discharge Plan 01/16/25 MAHESH Initial: SW met with pt at bedside to complete SDOH screen. Pt reports living with her daughter who provides assistance as needed. Pt states that her pharmacy is [facility] in [place] and confirmed her PCP. Pt reports that she has done dialysis with [facility] in the past buthas not been in 3 or 4 weeks. Pt requested that she transfer [facility] [place]. Pt reports having home oxygen set up but is unsure which company she utilizes for this. Pt. states she has missed dialysis several times due to transportation issues as [employer] told her theywould not come get her any longer because [place]. SW sent referral to [facility] to transfer to [facility]. Pt's daughter to transport pt home at discharge. * Cecilia Heard MSW - 01/16/2025 12:20 PM EDT 01/16/25 1217 SDOH Exclusion criteria SDOH screen exclusion criteria met No Living Situation What is your living situation today? I have a steady place to live Think about the place you live. Do you have problems with any of the following? None of the above Food Insecurity Within the past 12 months, you worried that your food would run out before you got the money to buymore. Never true Within the past 12 months, the food you bought just didn't last and you didn't have money to get more. Never true Transportation In the past 12 months, has lack of reliable transportation kept you from medical appointments, meetings, work or from getting things needed for daily living? Yes Utilities In the past 12 months has the [employer], gas, oil, or water company threatened to shut off services in your home? No Safety How often does anyone, including family and friends, physically hurt you? 1 How often does anyone, including family and friends, insult or talk down to you? 1 How often does anyone, including family and friends, threaten you with harm? 1 How often does anyone, including family and friends, scream or curse at you? 1 Financial Resource Strain How hard is it for you to pay for the very basics like food, housing, medical care, and heating? Not hard Employment Do you want help finding or keeping work or a job? I do not need or want help Family and Community Support If for any reason you need help with day-to-day activities such as bathing, preparing meals, shopping, managing finances, etc., do you get the help you need? I get all the help I need How often do you feel lonely or isolated from those around you? Never Education Do you speak a language other than [place] at home? No Do you want help with school or training? For example, starting or completing job training or getting a high school diploma, GED or equivalent. No Physical Activity On average, how many days per week do you engage in moderate to strenuous exercise (like a brisk walk)? 0 days On average, how many minutes do you engage in exercise at this level? 0 min Substance Use How many times in the past 12 months have you had 5 or more drinks in a day (males) or 4 or more drinks in a day (females)? One drink is 12 ounces of beer, 5 ounces of wine, or 1.5 ounces of 80-proofspirits Never How many times in the past 12 months have you used tobacco products (like cigarettes, cigars, snuff, chew, electronic cigarettes)? Never How many times in the past year have you used prescription drugs for non-medical reasons? Never How many times in the past year have you used illegal drugs? Never Over the last 2 weeks, how often have you been bothered by any of the following problems? Little interest or pleasure in doing things 0 Feeling down, depressed, or hopeless 0 PHQ-2 Total Score 0 If any questions above are blank did patient decline to complete PHQ-2 No Stress Do you feel stress - tense, restless, nervous, or anxious, or unable to sleep at night because yourmind is troubled all the time - these days? Not at all Disabilities Because of physical, mental or emotional condition, do you have serious difficulty concentrating, remembering or making decisions? (5 yrs. old or older) No * Mathieu Belcher MD - 01/16/2025 9:46 AM EDTAssociated Problem(s): Anemia due to stage 4 chronic kidney disease (HCC) EPO as per nephrology. * Mathieu Belcher MD - 01/16/2025 9:46 AM EDTAssociated Problem(s): Acute lumbar back pain X-ray personally reviewed no evidence of acute fracture. CT personally reviewed with no evidence offracture. Continue supportive management * Mathieu Belcher MD - 01/16/2025 9:46 AM EDTAssociated Problem(s): Chronic respiratory failure with hypoxia (HCC) Baseline oxygen requirements of 2 L via nasal cannula. Remains on baseline oxygen requirements. Continue to monitor * Mathieu Belcher MD - 01/16/2025 9:46 AM EDTAssociated Problem(s): COPD (chronic obstructive pulmonary disease) (HCC) Baseline oxygen requirements of 2 L via nasal cannula. Remains on baseline oxygen requirements. Continue to monitor * Mathieu Belcher MD - 01/16/2025 9:46 AM EDTAssociated Problem(s): Thoracoabdominal aortic aneurysm (TAAA) without rupture Measuring 4.3 cm in diameter. Recommend repeat imaging in 6 months to evaluate for expanding lesion. No surgical intervention indicated as lesion is not greater than 5 cm. * Mathieu Belcher MD - 01/16/2025 9:46 AM EDTAssociated Problem(s): Bilateral lower extremity edema Apply compression stockings. Continue IV diuresis. Nephrology following * Mathieu Belcher MD - 01/16/2025 9:46 AM EDTAssociated Problem(s): CKD (chronic kidney disease) stage 4, GFR 15-29 ml/min (HCC) Nephrology consulted for ongoing diuresis. * Mathieu Belcher MD - 01/16/2025 9:46 AM EDTAssociated Problem(s): End stage renal disease on dialysis (HCC) Nephrology consulted for ongoing diuresis. * Mathieu Belcher MD - 01/16/2025 9:46 AM EDT Images from the original note were not included. HOSPITALIST PROGRESS NOTE Assessment & Plan Acute on chronic HFrEF (heart failure with reduced ejection fraction) (HCC) Acute pulmonary edema (HCC) Appears resolved. Acute decompensation secondary to missed dialysis sessions. TTE from 2020 demonstrating preserved EF with preserved fraction of 50 to 60%. Telemetry personally reviewed on 01/16/2025noted to be normal sinus. Continue on dialysis and IV diuresis with 4 mg of IV Bumex twice daily. Monitor urine output. Strict I's and O's Bilateral lower extremity edema Apply compression stockings. Continue IV diuresis. Nephrology following CKD (chronic kidney disease) stage 4, GFR 15-29 ml/min (HCC) End stage renal disease on dialysis (HCC) Nephrology consulted for ongoing diuresis. Anemia due to stage 4 chronic kidney disease (HCC) EPO as per nephrology. Acute lumbar back pain X-ray personally reviewed no evidence of acute fracture. CT personally reviewed with no evidence offracture. Continue supportive management Chronic respiratory failure with hypoxia (HCC) COPD (chronic obstructive pulmonary disease) ([facility]) Baseline oxygen requirements of 2 L via nasal cannula. Remains on baseline oxygen requirements. Continue to monitor Thoracoabdominal aortic aneurysm (TAAA) without rupture Measuring 4.3 cm in diameter. Recommend repeat imaging in 6 months to evaluate for expanding lesion. No surgical intervention indicated as lesion is not greater than 5 cm. V.T.E. Prophylaxis: heparin (porcine) Diet: RENAL 60 GM CONSISTENT CARB, RENAL 2 DIET Code Status: Full Code Dispo: Hopeful discharge on Saturday Active Hospital Problems Diagnosis *Acute on chronic HFrEF (heart failure with reduced ejection fraction) ([facility]) Thoracoabdominal aortic aneurysm (TAAA) without rupture Bilateral lower extremity edema Acute lumbar back pain Chronic respiratory failure with hypoxia (HCC) Acute pulmonary edema (HCC) End stage renal disease on dialysis (HCC) Anemia due to stage 4 chronic kidney disease (HCC) CKD (chronic kidney disease) stage 4, GFR 15-29 ml/min (HCC) COPD (chronic obstructive pulmonary disease) ([facility]) Subjective: No acute events overnight Has no complaints today. Awaiting Saturday for dialysis bed and placement In no acute distress Objective: BP 121/97 (BP Location: Right arm, Patient Position: Semi Fowlers) Pulse 75 Temp 98.2 ??F (36.8??C) (Oral) Resp 16 Ht 5' 4 (1.626 m) Wt 153 lb 3.2 oz (69.5 kg) SpO2 95% BMI 26.30 kg/m?? Temp (24hrs), Av.9 ??F (36.6 ??C), Min:97.4 ??F (36.3 ??C), Max:98.3 ??F (36.8 ??C) BP Min: 92/54 Max: 127/55 Supplemental O2: O2 Device: Nasal cannula O2 Flow Rate (L/min): 2 lpm I/O last 3 completed shifts: In: 300 [I.V.:300] Out: 3310 [Urine:300] No intake/output data recorded. Wt Readings from Last 2 Encounters: 01/16/25 153 lb 3.2 oz (69.5 kg) 10/30/24 166 lb (75.3 kg) Admit weight: Weight: 170 lb (77.1 kg) Labs: Lab Results Component Value Date WBC 5.3 01/16/2025 HGB 8.6 (L) 01/16/2025 HCT 28.5 (L) 01/16/2025 MCV 89.1 01/16/2025 PLT 268 01/16/2025 PLT 268 01/16/2025 Lab Results Component Value Date GLU 62 (L) 01/16/2025 NA 136 01/16/2025 K 3.9 01/16/2025 CO2 24 01/16/2025 CL 101 01/16/2025 BUN 9 01/16/2025 CREATININE 2.83 (H) 01/16/2025 Labs: Laboratory data and diagnostic testing reviewed 01/16/25. Microbiology: No results found for this visit on 01/13/25 (from the past 2 weeks). Lab Results Component Value Date [place] Not Detected 04/05/2021 Medications: Scheduled Meds: aspirin 81 mg Oral Daily atorvastatin 40 mg Oral Daily b wwoheki-Q-syfgh acid 1 Capsule Oral Daily bumetanide 4 mg Intravenous BID Diuretic calcium acetate(phosphat bind) 667 mg Oral TID WM carvediloL 12.5 mg Oral BID WM ergocalciferol 50,000 Units Oral QW famotidine 20 mg Oral Nightly ferrous sulfate 325 mg Oral Daily heparin, porcine (PF) 5,000 Units Subcutaneous 3 times per day hydrALAZINE 100 mg Oral 3 times per day isosorbide mononitrate 60 mg Oral QAM sertraline 50 mg Oral Daily traZODone 50 mg Oral Nightly Continuous Infusions: PRN Meds:.acetaminophen, albuterol OR albuterol, aluminum & magnesium hydroxide-simethicone, hydrALAZINE, melatonin, ondansetron OR ondansetron OR metoclopramide HCl, morphine OR morphine, oxyCODONE-acetaminophen, polyethylene glycol, senna Radiology/Procedures/Labs: No results found. Radiology: Imaging and diagnostic testing reviewed 01/16/25. Physical Exam: Constitutional: Alert and oriented. No distress. Cardiovascular: Normal rate and regular rhythm. Exam reveals no friction rub. No murmur heard. Lower extremity edema. Pulmonary/Chest: Effort normal and breath sounds normal. No respiratory distress. There are no wheezes. Abdominal: Soft. Bowel sounds are normal. No distension. There is no tenderness. There is no rebound and no guarding. Musculoskeletal: Normal Muscle bulk. Normal range of motion Neurological: Nonfocal. Skin: Skin is warm and dry. No erythema. Appropriate PPE was donned during this visit Discussed with staff--bedside rounds with RN, care conference with charge nurse, care coordination/social service and/or pharmacist. This document was generated utilizing dictation software. Please excuse any overlooked spelling or gramatical errrors. Mathieu Belcher MD., [place]. 01/16/2025 9:46 AM * Gwendolyn Vences RN - 01/15/2025 5:48 PM EDT HD Weights from 01/15/25 1148 to 01/15/25 1748 Date/Time Pre HD Weight Post Treatment Weight Scale Type Used [facility] 01/15/25 1703 72.6 kg (160 lb 0.9 oz) 69.6 kg (153 lb 7 oz) Standup RS 01/15/25 1303 72.6 kg (160 lb 0.9 oz) -- Standup RS Est dry weight/Fluid Removal goal: 69.1 kg (152 lb 5.4 oz) Weight difference: -3 kg Net Fluid removal: 2710 Heparin load: 2000 units Heparin maintenance: 500 units/hr Medications given during HD: Epogen, Heparin, and Zofran Total hours: 4 Tolerated tx: well Access Used: AV fistula # Arterial Cannulations:1 # Venous Cannulations: 1 Hemodialysis Arteriovenous fistula Left Forearm-Needle Size (gauge): 15 Interventions: Decrease goal, UF minimum, recheck BP Treatment summary: BP drop to 90's two hours into tx, pt MD [email or web address] notified, placed in minimum briefly. unable to achieve original goal of 3.5 liters, pt states usually can only pull 3 liter, MD agreed and goal decreased. hemostasis achieved in less than 10 minutes. Pt c/o of nausea on arrival, zofran given with good results. * Mathieu Belcher MD - 01/15/2025 4:57 PM EDTAssociated Problem(s): Acute on chronic HFrEF (heart failure with reduced ejection fraction) (HCC) Acute decompensation secondary to missed dialysis sessions. TTE from 2020 demonstrating preserved EF with preserved fraction of 50 to 60%. Telemetry personally reviewed on 01/15/2025 noted to be normal sinus. Continue on dialysis and IV diuresis. Monitor urine output. Strict I's and O's * Mathieu Belcher MD - 01/15/2025 4:57 PM EDTAssociated Problem(s): Acute pulmonary edema (HCC) Acute decompensation secondary to missed dialysis sessions. TTE from 2020 demonstrating preserved EF with preserved fraction of 50 to 60%. Telemetry personally reviewed on 01/15/2025 noted to be normal sinus. Continue on dialysis and IV diuresis. Monitor urine output. Strict I's and O's * Mathieu Belcher MD - 01/15/2025 4:55 PM EDTAssociated Problem(s): Bilateral lower extremity edema Apply compression stockings. Continue IV diuresis. Nephrology following * Mathieu Belcher MD - 01/15/2025 4:55 PM EDTAssociated Problem(s): Anemia due to stage 4 chronic kidney disease (HCC) EPO as per nephrology. * Mathieu Belcher MD - 01/15/2025 4:55 PM EDTAssociated Problem(s): Acute lumbar back pain X-ray personally reviewed no evidence of acute fracture. CT personally reviewed with no evidence offracture. Continue supportive management * Yvonne Leigh RN - 01/15/2025 4:15 PM EDT Pt in HD - CC unable to complete initial assessment. CC to follow up. * Yvonne Leigh RN - 01/15/2025 2:28 PM EDT CC attempted to complete initial assessment - pt in HD. CC to follow up. * Mike Carter MD - 01/15/2025 9:08 AM EDT Images from the original note were not included. [facility] Progress Note Admit Date: 01/13/2025 LOS: 1 day Assessment/Plan: ESRD: --patient previously on HD at [facility] until she moved back to [facility] --has not had HD in about 3 weeks; was on HD in [place] --previously cared for by our practice --HD today --will need placement locally; consulted SW. 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 female that we have been consulted to see regarding esrd Soc Hx: Family not present in the room Subjective: Patient continues to improve. No new issues. Feels okay. Scheduled Meds: aspirin 81 mg Oral Daily atorvastatin 40 mg Oral Daily b bqqejfv-F-mklco acid 1 Capsule Oral Daily bumetanide 4 mg Intravenous BID Diuretic calcium acetate(phosphat bind) 667 mg Oral TID WM carvediloL 12.5 mg Oral BID WM ergocalciferol 50,000 Units Oral QW famotidine 20 mg Oral Nightly ferrous sulfate 325 mg Oral Daily heparin, porcine (PF) 5,000 Units Subcutaneous 3 times per day hydrALAZINE 100 mg Oral 3 times per day isosorbide mononitrate 60 mg Oral QAM sertraline 50 mg Oral Daily traZODone 50 mg Oral Nightly Continuous Infusions: PRN Meds:acetaminophen, albuterol, aluminum & magnesium hydroxide-simethicone, hydrALAZINE, melatonin, ondansetron OR ondansetron OR metoclopramide HCl, morphine OR morphine, oxyCODONE-acetaminophen, polyethylene glycol, senna, sodium chloride 0.9%, sodium chloride 0.9% Review of Systems: Constitutional: negative Respiratory: negative Cardiovascular: negative Gastrointestinal: negative Genitourinary:negative Neurological: negative All other systems were reviewed and were not pertinent to the clinical situation. Objective: BP 153/70 (BP Location: Right arm, Patient Position: Lying left side) Pulse 67 Temp 97.2 ??F (36.2 ??C) (Oral) Resp 18 Ht 5' 4 (1.626 m) Wt 170 lb (77.1 kg) SpO2 97% BMI 29.18 kg/m?? Patient Vitals for the past 24 hrs: BP Temp Temp src Pulse Resp SpO2 01/15/25 0527 153/70 97.2 ??F (36.2 ??C) Oral 67 18 97 % 01/15/25 0508 -- -- -- 64 -- -- 01/15/25 0300 -- -- -- 68 -- -- 01/15/25 0100 -- -- -- 66 -- -- 01/14/25 2359 135/63 97.8 ??F (36.6 ??C) Oral 97 18 98 % 01/14/25 2303 -- -- -- 66 -- -- 01/14/25 2142 134/64 -- -- -- -- -- 01/14/25 1950 121/61 98.1 ??F (36.7 ??C) Oral 74 18 98 % 01/14/25 1732 -- -- -- 81 -- -- 01/14/25 1705 131/60 -- -- 77 -- -- 01/14/25 1512 114/49 97.8 ??F (36.6 ??C) Oral 76 18 94 % 01/14/25 1456 -- -- -- 75 -- -- 01/14/25 1401 127/41 97.9 ??F (36.6 ??C) Oral 80 20 94 % 01/14/25 1300 101/58 -- -- 67 (!) 21 94 % 01/14/25 1230 105/58 -- -- 67 (!) 23 -- 01/14/25 1201 105/58 -- -- 63 20 95 % 01/14/25 1200 105/58 -- -- 63 (!) 21 95 % 01/14/25 1130 103/60 -- -- 61 20 96 % 01/14/25 1100 107/60 -- -- 63 (!) 21 95 % 01/14/25 1030 107/59 -- -- 59 (!) 23 -- 01/14/25 1000 99/55 -- -- 71 20 -- 01/14/25 0930 109/62 -- -- 69 18 -- I/O last 3 completed shifts: In: 2034 [P.O.:1785; I.V.:250] Out: 4389 [Urine:600] No intake/output data recorded. Skjd-Eode-YSN normocephalic, atraumatic, sclera and conjunctiva clear, PERRL, EOMI, oropharynx clear, good dental/gum hygiene and normal nose Neck supple, midline trachea, no tenderness, no mass, no thyromegaly, and no JVD Respiratory clear to auscultation bilaterally, normal airflow, and normal effort Cardiovascular S1, S2 normal; no murmur, rub or gallop; regular rate and rhythm Abdomen soft, non-tender; bowel sounds normal; no masses, no organomegaly Lymphatic no cervical adenopathy Musculoskeletal-NeuroPsych no focal neurological deficits, affect appropriate, and alert, oriented x3 Extremities no cyanosis, clubbing. 2+edema Skin no rashes or suspicious lesions, no evidence of bleeding or bruising Data:- CBC: Recent Labs 01/13/25 1335 01/14/25 0543 01/15/25 0538 WBC 8.2 6.0 5.7 HGB 8.8* 8.1* 9.4* HCT 28.0* 27.1* 30.9* PLT 208 202 241 RENAL FUNCTION PANEL: Recent Labs 01/13/25 1335 01/14/25 0543 01/15/25 0538 NA 136 139 135* K 4.4 4.4 4.0 CL 102 105 102 CO2 21* 21* 23 BUN 43* 44* 20 CREATININE 5.65* 5.88* 3.69* CALCIUM 8.7 8.2* 8.7 Lab Results Component Value Date ALKPHOS 99 01/13/2025 ALT 8 01/13/2025 AST 14 01/13/2025 PROT 7.0 01/13/2025 LABBILI 0.3 01/13/2025 Coagulation: ABGs: Recent Labs 06/18/25 1403 INSPIREDO2 2L No results found. Mike Carter MD, NIRAN[facility]AN [facility] Please feel free to reach out via [employer] Secure Chat * Mathieu Belcher MD - 01/15/2025 8:39 AM EDTAssociated Problem(s): CKD (chronic kidney disease) stage 4, GFR 15-29 ml/min (HCC) Nephrology consulted for ongoing diuresis. * Mathieu Belcher MD - 01/15/2025 8:39 AM EDTAssociated Problem(s): End stage renal disease on dialysis (HCC) Nephrology consulted for ongoing diuresis. * Mathieu Belcher MD - 01/15/2025 8:39 AM EDTAssociated Problem(s): Chronic respiratory failure with hypoxia (HCC) Baseline oxygen requirements of 2 L via nasal cannula. Remains on baseline oxygen requirements. Continue to monitor * Mathieu Belcher MD - 01/15/2025 8:39 AM EDTAssociated Problem(s): COPD (chronic obstructive pulmonary disease) (HCC) Baseline oxygen requirements of 2 L via nasal cannula. Remains on baseline oxygen requirements. Continue to monitor * Mathieu Belcher MD - 01/15/2025 8:39 AM EDTAssociated Problem(s): Thoracoabdominal aortic aneurysm (TAAA) without rupture Measuring 4.3 cm in diameter. Recommend repeat imaging in 6 months to evaluate for expanding lesion. No surgical intervention indicated as lesion is not greater than 5 cm. * Mathieu Belcher MD - 01/15/2025 8:39 AM EDT Images from the original note were not included. HOSPITALIST PROGRESS NOTE Assessment & Plan Acute on chronic HFrEF (heart failure with reduced ejection fraction) ([facility]) Present on Admission: Yes Acute pulmonary edema (HCC) Present on Admission: Yes Acute decompensation secondary to missed dialysis sessions. TTE from 2020 demonstrating preserved EF with preserved fraction of 50 to 60%. Telemetry personally reviewed on 01/15/2025 noted to be normal sinus. Continue on dialysis and IV diuresis. Monitor urine output. Strict I's and O's Bilateral lower extremity edema Present on Admission: Yes Apply compression stockings. Continue IV diuresis. Nephrology following CKD (chronic kidney disease) stage 4, GFR 15-29 ml/min ([facility]) Present on Admission: Yes End stage renal disease on dialysis (HCC) Present on Admission: Yes Nephrology consulted for ongoing diuresis. Anemia due to stage 4 chronic kidney disease (HCC) Present on Admission: Yes EPO as per nephrology. Acute lumbar back pain Present on Admission: Yes X-ray personally reviewed no evidence of acute fracture. CT personally reviewed with no evidence offracture. Continue supportive management Chronic respiratory failure with hypoxia (HCC) Present on Admission: Yes COPD (chronic obstructive pulmonary disease) (HCC) Present on Admission: Yes Baseline oxygen requirements of 2 L via nasal cannula. Remains on baseline oxygen requirements. Continue to monitor Thoracoabdominal aortic aneurysm (TAAA) without rupture Present on Admission: Yes Measuring 4.3 cm in diameter. Recommend repeat imaging in 6 months to evaluate for expanding lesion. No surgical intervention indicated as lesion is not greater than 5 cm. V.T.E. Prophylaxis: heparin (porcine) Diet: RENAL 60 GM CONSISTENT CARB, RENAL 2 DIET Code Status: Full Code Dispo: Pending clinical course. Active Hospital Problems Diagnosis *Acute on chronic HFrEF (heart failure with reduced ejection fraction) (HCC) Thoracoabdominal aortic aneurysm (TAAA) without rupture Bilateral lower extremity edema Acute lumbar back pain Chronic respiratory failure with hypoxia (HCC) Acute pulmonary edema (HCC) End stage renal disease on dialysis (HCC) Anemia due to stage 4 chronic kidney disease (HCC) CKD (chronic kidney disease) stage 4, GFR 15-29 ml/min (HCC) COPD (chronic obstructive pulmonary disease) ([facility]) Subjective: No acute events overnight Reports feeling a lot better today. Continued improvement with subsequent dialysis session. Swelling much improved In no acute distress Objective: BP 153/70 (BP Location: Right arm, Patient Position: Lying left side) Pulse 67 Temp 97.2 ??F (36.2 ??C) (Oral) Resp 18 Ht 5' 4 (1.626 m) Wt 170 lb (77.1 kg) SpO2 97% BMI 29.18 kg/m?? Temp (24hrs), Av.8 ??F (36.6 ??C), Min:97.2 ??F (36.2 ??C), Max:98.1 ??F (36.7 ??C) BP Min: 99/55 Max: 153/70 Supplemental O2: O2 Device: Nasal cannula O2 Flow Rate (L/min): 2 lpm I/O last 3 completed shifts: In: 2034 [P.O.:1785; I.V.:250] Out: 4390 [Urine:600] No intake/output data recorded. Wt Readings from Last 2 Encounters: 01/13/25 170 lb (77.1 kg) 10/30/24 166 lb (75.3 kg) Admit weight: Weight: 170 lb (77.1 kg) Labs: Lab Results Component Value Date WBC 5.7 01/15/2025 HGB 9.4 (L) 01/15/2025 HCT 30.9 (L) 01/15/2025 MCV 87.5 01/15/2025 PLT 241 01/15/2025 Lab Results Component Value Date GLU 79 01/15/2025 NA 135 (L) 01/15/2025 K 4.0 01/15/2025 CO2 23 01/15/2025 CL 102 01/15/2025 BUN 20 01/15/2025 CREATININE 3.69 (H) 01/15/2025 Labs: Laboratory data and diagnostic testing reviewed 01/15/25. Microbiology: No results found for this visit on 01/13/25 (from the past 2 weeks). Lab Results Component Value Date PALUMBO Not Detected 04/05/2021 Medications: Scheduled Meds: aspirin 81 mg Oral Daily atorvastatin 40 mg Oral Daily b rwwttrf-O-bldnj acid 1 Capsule Oral Daily bumetanide 4 mg Intravenous BID Diuretic calcium acetate(phosphat bind) 667 mg Oral TID WM carvediloL 12.5 mg Oral BID WM ergocalciferol 50,000 Units Oral QW famotidine 20 mg Oral Nightly ferrous sulfate 325 mg Oral Daily heparin, porcine (PF) 5,000 Units Subcutaneous 3 times per day hydrALAZINE 100 mg Oral 3 times per day isosorbide mononitrate 60 mg Oral QAM sertraline 50 mg Oral Daily traZODone 50 mg Oral Nightly Continuous Infusions: PRN Meds:.acetaminophen, albuterol, aluminum & magnesium hydroxide-simethicone, hydrALAZINE, melatonin, ondansetron OR ondansetron OR metoclopramide HCl, morphine OR morphine, oxyCODONE-acetaminophen, polyethylene glycol, senna, sodium chloride 0.9%, sodium chloride 0.9% Radiology/Procedures/Labs: No results found. Radiology: Imaging and diagnostic testing reviewed 01/15/25. Physical Exam: Constitutional: Alert and oriented. No distress. Cardiovascular: Normal rate and regular rhythm. Exam reveals no friction rub. No murmur heard. Bilateral lower extremity edema. Pulmonary/Chest: Effort normal and breath sounds normal. No respiratory distress. There are no wheezes. Abdominal: Soft. Bowel sounds are normal. No distension. There is no tenderness. There is no rebound and no guarding. Musculoskeletal: Normal Muscle bulk. Normal range of motion Neurological: Nonfocal. Skin: Skin is warm and dry. No erythema. Appropriate PPE was donned during this visit Discussed with staff--bedside rounds with RN, care conference with charge nurse, care coordination/social service and/or pharmacist. This document was generated utilizing dictation software. Please excuse any overlooked spelling or gramatical errrors. Mathieu Belcher MD., [place]. 01/15/2025 8:39 AM * Mathieu Belcher MD - 01/14/2025 6:05 PM EDTAssociated Problem(s): Acute on chronic HFrEF (heart failure with reduced ejection fraction) (HCC) Acute decompensation secondary to missed dialysis sessions. TTE from 2020 demonstrating preserved EF with preserved fraction of 50 to 60%. CXR with Pulmonary Edema. Receiving 3.8 kg of fluid removal continue IV diuresis. Monitor urine output. * Mathieu Belcher MD - 01/14/2025 6:05 PM EDTAssociated Problem(s): Acute pulmonary edema (HCC) Acute decompensation secondary to missed dialysis sessions. TTE from 2020 demonstrating preserved EF with preserved fraction of 50 to 60%. CXR with Pulmonary Edema. Receiving 3.8 kg of fluid removal continue IV diuresis. Monitor urine output. * Mathieu Belcher MD - 01/14/2025 6:05 PM EDTAssociated Problem(s): Acute lumbar back pain X-ray personally reviewed no evidence of acute fracture. CT personally reviewed with no evidence offracture. * Mathieu Belcher MD - 01/14/2025 6:05 PM EDTAssociated Problem(s): Chronic respiratory failure with hypoxia (HCC) Baseline oxygen requirements of 2 L via nasal cannula. Remains on baseline oxygen requirements. Continue to monitor * Mathieu Belcher MD - 01/14/2025 6:05 PM EDTAssociated Problem(s): COPD (chronic obstructive pulmonary disease) (HCC) Baseline oxygen requirements of 2 L via nasal cannula. Remains on baseline oxygen requirements. Continue to monitor * Mathieu Belcher MD - 01/14/2025 6:05 PM EDTAssociated Problem(s): Thoracoabdominal aortic aneurysm (TAAA) without rupture Measuring 4.3 cm in diameter. Recommend repeat imaging in 6 months to evaluate for expanding lesion. No surgical intervention indicated as lesion is not greater than 5 cm. * Lashawn Gloria RN - 01/14/2025 2:33 PM EDT Reviewed HF and HD. Pt was aware of the problems to be encountered when she wasn't going to HD for 2-3 weeks but she said no one seemed to care or would help her. She said she ultimately came to hospital because the swelling hurt and she won't leave until we have a place for her to go to HD and wayto get there. She is aware of HF diagnosis and follows a 32oz fluid rest. States low na diet and compliance with meds. She has a scale at home and aware of value of weights but did not weigh self when she wasn't going to HD. She is not happy about getting iv lasix as it makes her go to the bathroomso much. Reinforced importance of diuresis during hospitalization along with HD. [facility] and will follow up with her. * Jadyn Yang RN - 01/14/2025 1:24 PM EDT HD Weights from 01/14/25 0725 to 01/14/25 1325 Date/Time Pre HD Weight Post Treatment Weight Scale Type Used [facility] 01/14/25 1300 75.5 kg (166 lb 7.2 oz) 72.3 kg (159 lb 6.3 oz) Standup GEZ 01/14/25 0905 75.5 kg (166 lb 7.2 oz) -- Standup GEZ Est dry weight/Fluid Removal goal: 72 kg (158 lb 11.7 oz) Weight difference: -3.2 kg Net Fluid removal: 3540 Heparin load: 2000 units Heparin maintenance: 500 units/hr Medications given during HD: None Total hours: 4 Tolerated tx: well Access Used: AV fistula # Arterial Cannulations: 1 # Venous Cannulations: 1 Hemodialysis Arteriovenous fistula Left Forearm-Needle Size (gauge): 15 Treatment summary: Unremarkable treatment, B/P soft stable throughout. Tolerated fluid removable without distress, still SOB on exertion,but recovers with rest. * Yakelin Huber NA - 01/14/2025 12:27 PM EDT Followed up with patient on their request for additional information on Advance Directives. Patient declined information. * Mathieu Belcher MD - 01/14/2025 8:45 AM EDTAssociated Problem(s): Bilateral lower extremity edema Apply compression stockings. Continue IV diuresis. Nephrology consulted for dialysis. * Mathieu Belcher MD - 01/14/2025 8:45 AM EDTAssociated Problem(s): CKD (chronic kidney disease) stage 4, GFR 15-29 ml/min ([facility]) Nephrology consulted for ongoing diuresis. * Mathieu Belcher MD - 01/14/2025 8:45 AM EDTAssociated Problem(s): End stage renal disease on dialysis (HCC) Nephrology consulted for ongoing diuresis. * Mathieu Belcher MD - 01/14/2025 8:45 AM EDTAssociated Problem(s): Anemia due to stage 4 chronic kidney disease (HCC) EPO as per neurology. * Mathieu Belcher MD - 01/14/2025 8:45 AM EDT Images from the original note were not included. HOSPITALIST PROGRESS NOTE Assessment & Plan Acute on chronic HFrEF (heart failure with reduced ejection fraction) (HCC) Present on Admission: Yes Acute pulmonary edema (HCC) Present on Admission: Yes Acute decompensation secondary to missed dialysis sessions. TTE from 2020 demonstrating preserved EF with preserved fraction of 50 to 60%. CXR with Pulmonary Edema. Receiving 3.8 kg of fluid removal continue IV diuresis. Monitor urine output. Bilateral lower extremity edema Present on Admission: Yes Apply compression stockings. Continue IV diuresis. Nephrology consulted for dialysis. CKD (chronic kidney disease) stage 4, GFR 15-29 ml/min ([facility]) Present on Admission: Yes End stage renal disease on dialysis (HCC) Present on Admission: Yes Nephrology consulted for ongoing diuresis. Anemia due to stage 4 chronic kidney disease (HCC) Present on Admission: Yes EPO as per neurology. Acute lumbar back pain Present on Admission: Yes X-ray personally reviewed no evidence of acute fracture. CT personally reviewed with no evidence offracture. Chronic respiratory failure with hypoxia (HCC) Present on Admission: Yes COPD (chronic obstructive pulmonary disease) (HCC) Present on Admission: Yes Baseline oxygen requirements of 2 L via nasal cannula. Remains on baseline oxygen requirements. Continue to monitor Thoracoabdominal aortic aneurysm (TAAA) without rupture Present on Admission: Yes Measuring 4.3 cm in diameter. Recommend repeat imaging in 6 months to evaluate for expanding lesion. No surgical intervention indicated as lesion is not greater than 5 cm. V.T.E. Prophylaxis: heparin (porcine) Diet: RENAL 60 GM CONSISTENT CARB, RENAL 2 DIET Code Status: Full Code Dispo: Pending clinical course. Active Hospital Problems Diagnosis *Acute on chronic HFrEF (heart failure with reduced ejection fraction) (HCC) Bilateral lower extremity edema Acute lumbar back pain Chronic respiratory failure with hypoxia (HCC) Acute pulmonary edema (HCC) End stage renal disease on dialysis (HCC) Anemia due to stage 4 chronic kidney disease (HCC) CKD (chronic kidney disease) stage 4, GFR 15-29 ml/min (HCC) Subjective: Generally feels fine. Reports swelling is better and breathing is better Approximately 1400 mL of urine removed overnight. Undergoing dialysis receiving approximately 3.8 kg of fluid removal. In no acute distress Objective: BP 119/60 (BP Location: Right arm, Patient Position: Semi Fowlers) Pulse 69 Temp 97.8 ??F (36.6??C) (Oral) Resp 20 Ht 5' 4 (1.626 m) Wt 170 lb (77.1 kg) SpO2 96% BMI 29.18 kg/m?? Temp (24hrs), Av.1 ??F (36.7 ??C), Min:97.6 ??F (36.4 ??C), Max:98.3 ??F (36.8 ??C) BP Min: 119/60 Max: 205/174 Supplemental O2: O2 Device: Nasal cannula O2 Flow Rate (L/min): 2 lpm I/O last 3 completed shifts: In: 240 [P.O.:240] Out: 1400 [Urine:1400] I/O this shift: In: 475 [P.O.:475] Out: - Wt Readings from Last 2 Encounters: 01/13/25 170 lb (77.1 kg) 10/30/24 166 lb (75.3 kg) Admit weight: Weight: 170 lb (77.1 kg) Labs: Lab Results Component Value Date WBC 6.0 01/14/2025 HGB 8.1 (L) 01/14/2025 HCT 27.1 (L) 01/14/2025 MCV 89.7 01/14/2025 PLT 202 01/14/2025 Lab Results Component Value Date GLU 79 01/14/2025 NA 139 01/14/2025 K 4.4 01/14/2025 CO2 21 (L) 01/14/2025 CL 105 01/14/2025 BUN 44 (H) 01/14/2025 CREATININE 5.88 (H) 01/14/2025 Labs: Laboratory data and diagnostic testing reviewed 01/14/25. Microbiology: No results found for this visit on 01/13/25 (from the past 2 weeks). Lab Results Component Value Date PALUMBO Not Detected 04/05/2021 Medications: Scheduled Meds: bumetanide 4 mg Intravenous BID Diuretic carvediloL 12.5 mg Oral BID WM heparin (porcine) 2,000 Units Intravenous Once in dialysis heparin (porcine) 1,000 Units Intercatheter Once in dialysis heparin (porcine) 1,000 Units Intercatheter Once in dialysis heparin, porcine (PF) 5,000 Units Subcutaneous 3 times per day hydrALAZINE 100 mg Oral 3 times per day sodium chloride 0.9% 10 mL Intercatheter Once in dialysis sodium chloride 0.9% 10 mL Intercatheter Once in dialysis traZODone 50 mg Oral Nightly Continuous Infusions: heparin (porcine) PRN Meds:.acetaminophen, albuterol, aluminum & magnesium hydroxide-simethicone, hydrALAZINE, melatonin, ondansetron OR ondansetron OR metoclopramide HCl, morphine OR morphine, oxyCODONE-acetaminophen, polyethylene glycol, senna, sodium chloride 0.9%, sodium chloride 0.9% Radiology/Procedures/Labs: CT LUMBAR SPINE WO CONTRAST Result Date: 01/13/2025 CT LUMBAR SPINE WITHOUT CONTRAST, 01/13/2025 5:14 PM CLINICAL HISTORY: -back pain. COMPARISON: None.PROCEDURE COMMENTS: Multidetector CT scanning of the lumbar spine with multiplanar reformats per standard protocol. Dose 1 : CT DLP Total : 620.51 mGycm DLP Spiral Max : 614.18 mGycm Maximum CTDI Vol: 18 mGy FINDINGS: No acute spine fracture or traumatic malalignment. Paraspinous soft tissues within normal limits. Level by level analysis: L1-L2: Disc height is maintained. Central canal and foramina appear grossly patent. L2-L3: Upper L2 endplate body Schmorl node. Disc height is maintained. Central canal and foramina appear grossly patent. L3-L4: Circumferential disc bulge, bilateral ligamentum flavum thickening and facet hypertrophy contribute to mild canal and bilateral foraminal stenosis. L4-L5: Circumferential disc bulge, bilateral ligamentum flavum thickening and facet hypertrophy contribute to mild canal and bilateral foraminal stenosis. L5-S1: Disc height is maintained. Central canal and foramina appear grossly patent. Thoracoabdominal aorta and infrarenal abdominal aneurysmaldilation, measuring up to 4.3 cm in AP diameter with diffuse atherosclerotic calcifications. Colonic diverticulosis. Bilateral nonobstructing kidney stones greater on the right. Tiny right pleural effusion and adjacent airspace disease. 1. No acute lumbar spine fracture. 2. Mild multilevel lumbar spondylosis. 3. Thoracoabdominal aortic aneurysm. 4. Bilateral nonobstructing nephrolithiasis. 5. Colonic diverticulosis. 6. Tiny right pleural effusion and adjacent airspace disease. - Note: Radiology results need to be interpreted within a comprehensive clinical context. If you have questions about the radiology report, please contactthe office of the ordering clinician. XR CHEST PA AND LATERAL Result Date: 01/13/2025 PA AND LATERAL CHEST X-RAY, 01/13/2025 4:22 PM CLINICAL HISTORY: -missed dialysis COMPARISON: 2020 PROCEDURE COMMENTS: Frontal and lateral views of the chest. FINDINGS: Suspect mild irregular perihilar opacity. Small pleural effusion and basilar opacity. Heart size is stable with median sternotomy. Question mild pulmonary edema with likely small effusions. - Note: Radiology results need to be interpreted within a comprehensive clinical context. If you have questions about the radiology report, please contact the office of the ordering clinician. XR LUMBAR SPINE AP AND LATERAL Result Date: 01/13/2025 AP AND LATERAL LUMBAR SPINE, 01/13/2025 4:22 PM CLINICAL HISTORY: -low back pain COMPARISON: None. PROCEDURE COMMENTS: Minimum of 3 views lumbar spine per protocol. FINDINGS: No visible acute vertebral fracture or traumatic malalignment. Mild multilevel degenerative changes noted. No acute abnormality of the lumbar spine. - Note: Radiology results need to be interpreted within acomprehensive clinical context. If you have questions about the radiology report, please contact the office of the ordering clinician. 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 Physical Exam: Constitutional: Alert and oriented. No distress. Cardiovascular: Normal rate and regular rhythm. Exam reveals no friction rub. No murmur heard. Bilateral lower extremity swelling edema. Pulmonary/Chest: Effort normal and breath sounds normal. No respiratory distress. There are no wheezes. Abdominal: Soft. Bowel sounds are normal. No distension. There is no tenderness. There is no rebound and no guarding. Musculoskeletal: Normal Muscle bulk. Normal range of motion Neurological: Nonfocal. Skin: Skin is warm and dry. No erythema. Appropriate PPE was donned during this visit Discussed with staff--bedside rounds with RN, care conference with charge nurse, care coordination/social service and/or pharmacist. This document was generated utilizing dictation software. Please excuse any overlooked spelling or gramatical errrors. Mathieu Belcher MD., [place]. 01/14/2025 8:45 AM * Mike Carter MD - 01/14/2025 8:23 AM EDT Images from the original note were not included. [facility] Progress Note Admit Date: 01/13/2025 LOS: 0 days Assessment/Plan: ESRD: --patient previously on HD at [facility] until she moved back to [facility] --has not had HD in about 3 weeks; was on HD in [place] --previously cared for by our practice --HD today and tomorrow and likely will need serial treatments to achieve euvolemia --will need placement locally; consult SW. 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 female that we have been consulted to see regarding esrd and volume overload Soc Hx: Family not present in the room Subjective: Patient okay today. No new issues. Made good urine overnight. Scheduled Meds: bumetanide 4 mg Intravenous BID Diuretic carvediloL 12.5 mg Oral BID WM heparin (porcine) 2,000 Units Intravenous Once in dialysis heparin (porcine) 1,000 Units Intercatheter Once in dialysis heparin (porcine) 1,000 Units Intercatheter Once in dialysis heparin, porcine (PF) 5,000 Units Subcutaneous 3 times per day hydrALAZINE 100 mg Oral 3 times per day sodium chloride 0.9% 10 mL Intercatheter Once in dialysis sodium chloride 0.9% 10 mL Intercatheter Once in dialysis traZODone 50 mg Oral Nightly Continuous Infusions: heparin (porcine) PRN Meds:acetaminophen, albuterol, aluminum & magnesium hydroxide-simethicone, hydrALAZINE, melatonin, ondansetron OR ondansetron OR metoclopramide HCl, morphine OR morphine, oxyCODONE-acetaminophen, polyethylene glycol, senna, sodium chloride 0.9%, sodium chloride 0.9% Review of Systems: Constitutional: negative Respiratory: negative Cardiovascular: negative Gastrointestinal: negative Genitourinary:negative Neurological: negative All other systems were reviewed and were not pertinent to the clinical situation. Objective: BP 119/60 (BP Location: Right arm, Patient Position: Semi Fowlers) Pulse 69 Temp 97.8 ??F (36.6??C) (Oral) Resp 20 Ht 5' 4 (1.626 m) Wt 170 lb (77.1 kg) SpO2 96% BMI 29.18 kg/m?? Patient Vitals for the past 24 hrs: BP Temp Temp src Pulse Resp SpO2 Height Weight 01/14/25 0822 119/60 97.8 ??F (36.6 ??C) Oral 69 20 96 % -- -- 01/14/25 0501 -- -- -- 85 -- -- -- -- 01/14/25 0430 153/70 98.3 ??F (36.8 ??C) Oral 106 (!) 22 95 % -- -- 01/14/25 0321 -- -- -- 89 -- -- -- -- 01/14/25 0106 -- -- -- 96 -- -- -- -- 01/14/25 0007 160/88 98.2 ??F (36.8 ??C) Oral 98 20 92 % -- -- 01/13/25 2340 -- -- -- 99 -- 100 % -- -- 01/13/25 2338 -- -- -- 97 20 97 % -- -- 01/13/25 2303 -- -- -- 101 -- -- -- -- 01/13/25 2109 (!) 165/97 98.2 ??F (36.8 ??C) Oral 89 20 100 % -- -- 01/13/25 1846 (!) 181/96 -- -- 99 -- -- -- -- 01/13/25 1805 (!) 184/ 98.2 ??F (36.8 ??C) Oral 78 20 97 % -- -- 01/13/25 1744 -- -- -- -- -- -- 5' 4 (1.626 m) 170 lb (77.1 kg) 01/13/25 1703 -- -- -- 82 20 100 % -- -- 01/13/25 1700 -- -- -- 77 (!) 21 99 % -- -- 01/13/25 1654 -- -- -- 76 17 97 % -- -- 01/13/25 1630 -- -- -- 90 20 98 % -- -- 01/13/25 1621 -- -- -- 84 20 97 % -- -- 01/13/25 1600 (!) 198/94 -- -- 72 19 99 % -- -- 01/13/25 1538 -- -- -- 84 19 96 % -- -- 01/13/25 1530 (!) 205/174 -- -- 74 20 99 % -- -- 01/13/25 1500 (!) 202/95 -- -- 76 (!) 23 98 % -- -- 01/13/25 1430 (!) 198/97 -- -- 76 (!) 22 98 % -- -- 01/13/25 1405 -- -- -- 85 19 98 % -- -- 01/13/25 1400 (!) 181/100 -- -- -- -- 100 % -- -- 01/13/25 1343 (!) 155/111 -- -- -- -- 100 % -- -- 01/13/25 1337 -- -- -- -- -- 99 % -- -- 01/13/25 1330 (!) 185/100 -- -- -- -- 100 % -- -- 01/13/25 1328 (!) 185/100 97.6 ??F (36.4 ??C) Oral 86 19 96 % -- -- I/O last 3 completed shifts: In: 240 [P.O.:240] Out: 1400 [Urine:1400] No intake/output data recorded. Sibb-Ftzx-AMX normocephalic, atraumatic, sclera and conjunctiva clear, PERRL, EOMI, oropharynx clear, good dental/gum hygiene and normal nose Neck supple, midline trachea, no tenderness, no mass, no thyromegaly, and no JVD Respiratory clear to auscultation bilaterally, normal airflow, and normal effort Cardiovascular S1, S2 normal; no murmur, rub or gallop; regular rate and rhythm Abdomen soft, non-tender; bowel sounds normal; no masses, no organomegaly Lymphatic no cervical adenopathy Musculoskeletal-NeuroPsych no focal neurological deficits, affect appropriate, and alert, oriented x3 Extremities no cyanosis, clubbing. 3+edema Skin no rashes or suspicious lesions, no evidence of bleeding or bruising Data:- CBC: Recent Labs 01/13/25 1335 01/14/25 0543 WBC 8.2 6.0 HGB 8.8* 8.1* HCT 28.0* 27.1* PLT 208 202 RENAL FUNCTION PANEL: Recent Labs 01/13/25 1335 01/14/25 0543 NA 136 139 K 4.4 4.4 CL 102 105 CO2 21* 21* BUN 43* 44* CREATININE 5.65* 5.88* CALCIUM 8.7 8.2* Lab Results Component Value Date ALKPHOS 99 01/13/2025 ALT 8 01/13/2025 AST 14 01/13/2025 PROT 7.0 01/13/2025 LABBILI 0.3 01/13/2025 Coagulation: ABGs: Recent Labs 01/13/[address] LUMBAR SPINE WO CONTRAST Result Date: 01/13/2025 CT LUMBAR SPINE WITHOUT CONTRAST, 01/13/2025 5:14 PM CLINICAL HISTORY: -back pain. COMPARISON: None.PROCEDURE COMMENTS: Multidetector CT scanning of the lumbar spine with multiplanar reformats per standard protocol. Dose 1 : CT DLP Total : 620.51 mGycm DLP Spiral Max : 614.18 mGycm Maximum CTDI Vol: 18 mGy FINDINGS: No acute spine fracture or traumatic malalignment. Paraspinous soft tissues within normal limits. Level by level analysis: L1-L2: Disc height is maintained. Central canal and foramina appear grossly patent. L2-L3: Upper L2 endplate body Schmorl node. Disc height is maintained. Central canal and foramina appear grossly patent. L3-L4: Circumferential disc bulge, bilateral ligamentum flavum thickening and facet hypertrophy contribute to mild canal and bilateral foraminal stenosis. L4-L5: Circumferential disc bulge, bilateral ligamentum flavum thickening and facet hypertrophy contribute to mild canal and bilateral foraminal stenosis. L5-S1: Disc height is maintained. Central canal and foramina appear grossly patent. Thoracoabdominal aorta and infrarenal abdominal aneurysmaldilation, measuring up to 4.3 cm in AP diameter with diffuse atherosclerotic calcifications. Colonic diverticulosis. Bilateral nonobstructing kidney stones greater on the right. Tiny right pleural effusion and adjacent airspace disease. 1. No acute lumbar spine fracture. 2. Mild multilevel lumbar spondylosis. 3. Thoracoabdominal aortic aneurysm. 4. Bilateral nonobstructing nephrolithiasis. 5. Colonic diverticulosis. 6. Tiny right pleural effusion and adjacent airspace disease. - Note: Radiology results need to be interpreted within a comprehensive clinical context. If you have questions about the radiology report, please contactthe office of the ordering clinician. XR CHEST PA AND LATERAL Result Date: 01/13/2025 PA AND LATERAL CHEST X-RAY, 01/13/2025 4:22 PM CLINICAL HISTORY: -missed dialysis COMPARISON: 2020 PROCEDURE COMMENTS: Frontal and lateral views of the chest. FINDINGS: Suspect mild irregular perihilar opacity. Small pleural effusion and basilar opacity. Heart size is stable with median sternotomy. Question mild pulmonary edema with likely small effusions. - Note: Radiology results need to be interpreted within a comprehensive clinical context. If you have questions about the radiology report, please contact the office of the ordering clinician. XR LUMBAR SPINE AP AND LATERAL Result Date: 01/13/2025 AP AND LATERAL LUMBAR SPINE, 01/13/2025 4:22 PM CLINICAL HISTORY: -low back pain COMPARISON: None. PROCEDURE COMMENTS: Minimum of 3 views lumbar spine per protocol. FINDINGS: No visible acute vertebral fracture or traumatic malalignment. Mild multilevel degenerative changes noted. No acute abnormality of the lumbar spine. - Note: Radiology results need to be interpreted within acomprehensive clinical context. If you have questions about the radiology report, please contact the office of the ordering clinician. EK EKG 12 LEAD [facility] Test Date: 2025-01-13 Pat Name: DIVYA BROWN Department: DEPID Room: 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 Complaints of headache. Notified Dr. Belcher. * Yvonne Gonzalez RN - 01/13/2025 6:42 PM EDT Patient arrived on unit and 4 Eyes Skin Assessment within 4 hours completed with OLVIN raman Score: 19 Devices Removed/ Reapplied for Skin Assessment No Wound Present of Arrival: Yes No - Yes Explain: No Wound LDAs None No prevention protocol needed Dietary Orders Ordered Renal 2, 60 Gram Consistent Carb Diet DIET EFFECTIVE NOW 01/13/25 1616 Comments: No 01/13/25 1805 Skin Color/Condition Skin Color Ecchymosis Skin Condition/Temp Warm Skin Color/Condition (WDL) X Skin Integrity - Remove any devices or call the provider for direction Skin Integrity Abrasion;Redness;Other (Comment) (misquito bite to right buttocks) Abrasion Location Right Leg - Lower;Left Buttock;Right Buttock Redness Location Left Elbow;Right Elbow;Left Heel;Right Heel;Left Foot;Left Toe(s);Right Toes(s);Left Buttock;Right Buttock;Coccyx (Left great toe) Skin Integrity (WDL) X * Mathieu Belcher MD - 01/13/2025 5:12 PM EDTAssociated Problem(s): CKD (chronic kidney disease) stage 4, GFR 15-29 ml/min ([facility]) Nephrology consulted for ongoing diuresis. * Mathieu Belcher MD - 01/13/2025 5:12 PM EDTAssociated Problem(s): Acute on chronic HFrEF (heart failure with reduced ejection fraction) (HCC) Acute decompensation secondary to missed dialysis sessions. TTE from 2020 demonstrating preserved EF with preserved fraction of 50 to 60%. CXR with Pulmonary Edema. Nephrology to assist with fluid status. Start IV diuresis. Monitor urine output. * Mathieu Belcher MD - 01/13/2025 5:12 PM EDTAssociated Problem(s): Acute pulmonary edema (HCC) Acute decompensation secondary to missed dialysis sessions. TTE from 2020 demonstrating preserved EF with preserved fraction of 50 to 60%. CXR with Pulmonary Edema. Nephrology to assist with fluid status. Start IV diuresis. Monitor urine output. * Mathieu Belcher MD - 01/13/2025 5:12 PM EDTAssociated Problem(s): End stage renal disease on dialysis (HCC) Nephrology consulted for ongoing diuresis. * Mathieu Belcher MD - 01/13/2025 5:12 PM EDTAssociated Problem(s): Chronic respiratory failure with hypoxia (HCC) Baseline oxygen requirements of 2 L via nasal cannula. Remains on baseline oxygen requirements. Continue to monitor * Mathieu Belcher MD - 01/13/2025 5:02 PM EDTAssociated Problem(s): Anemia due to stage 4 chronic kidney disease (HCC) EPO as per neurology. * Mathieu Belcher MD - 01/13/2025 5:02 PM EDTAssociated Problem(s): Acute lumbar back pain X-ray personally reviewed no evidence of acute fracture. Will obtain a CT for further analysis. * Mathieu Belcher MD - 01/13/2025 4:16 PM EDTAssociated Problem(s): Bilateral lower extremity edema Apply compression stockings. Continue IV diuresis. Nephrology consulted for dialysis. documented in this encounter H&P Notes * Mathieu Belcher MD - 01/13/2025 4:07 PM EDT Images from the original note were not included. SEP Hospitalist H&P Divya Brown; ; ADMIT DATE: 01/13/2025 1:25 PM Chief Complaint: Chief Complaint Patient presents with Leg Swelling C/O central back pain and pitting edema in both lower legs. Hx-CHF, HTN, COPD, kidney failure. Hasn't had dialysis in two weeks due to transport issues. Back Pain History of Present illness: Patient is a 59 y.o. female with a past medical history significant for COPD, HFrEF, CKD stage IV, S/P aortic valve replacement with bioprosthetic valve (05/11/2020), S/P tricuspid valve replacement, Severe aortic regurgitation (05/11/2020), Severe tricuspid regurgitation, Transient cerebral ischemic attack, presenting with leg swelling and back pain. As per report, patient complains ofpitting edema in both her lower extremities. States that she had not received dialysis over 2 weeksdue to transportation issues. In the emergency department, labs significant for a known CKD with a creatinine of 5.65, hemoglobin8.8. Remaining CBC, CMP and VBG unremarkable. Chest x-ray demonstrated acute pulmonary edema. Patient admitted to medicine for further evaluation. Allergies: No Known Allergies Home Medications: Prior to Admission medications Medication Sig Start Date End Date Taking? Authorizing Provider albuterol (PROVENTIL HFA;VENTOLIN HFA) 90 mcg/actuation Inhl HFA Aerosol Inhaler Inhale 2 Puffs into the lungs every 6 hours and prn. 10/30/24 Yes Noreen Ortega, DO aspirin 81 mg Oral Tablet, Chewable Take 1 Tablet by mouth daily for 360 days. 10/30/24 10/25/25 Yes Noreen Ortega, DO atorvastatin (LIPITOR) 40 mg Oral Tablet Take 1 Tablet by mouth daily. 10/30/24 Yes Noreen Ortega, DO b imvnakz-L-fqqvu acid (NEPHROCAP) 1 mg Oral Capsule Take 1 Capsule by mouth daily. Yes Provider, Historical calcium acetate,phosphat bind, (PHOSLO) 667 mg Oral Capsule Take two tablets with each meal. Take one tablet with each snack. 06/26/23 Yes Meredith Moses APRN carvediloL (COREG) 12.5 mg Oral Tablet Take 1 Tablet by mouth 2 times daily (with meals) for 360 days. Take one tablet by mouth twice daily 10/30/24 10/25/25 Yes Noreen Ortega, DO ergocalciferol (VITAMIN D) 1,250 mcg (50,000 unit) Oral Capsule Take 1 Capsule by mouth once a week. 05/15/21 Yes Jovi Carter Ud, MD famotidine (PEPCID) 20 mg Oral Tablet Take 1 Tablet by mouth nightly for 360 days. 10/30/24 10/25/25 Yes Noreen Ortega DO ferrous sulfate 325 mg (65 mg iron) Oral Tablet Take by mouth daily. Yes Provider, Historical hydrALAZINE (APRESOLINE) 100 mg Oral Tablet Take 1 Tablet by mouth every 8 hours. 10/30/24 Yes Noreen Ortega, isosorbide mononitrate (IMDUR) 60 mg Oral Tablet Sustained Release 24 hr Take 1 Tablet by mouth every morning for 360 days. 10/30/24 10/25/25 Yes Noreen Ortega, Melatonin 3 mg Oral Tablet Take 3.5 Tablets by mouth nightly for 180 days. 10/30/24 04/28/25 Yes Noreen Ortega DO oxyCODONE (ROXICODONE) 5 mg Oral Tablet Take 5 mg by mouth every 6 hours as needed. 02/21/22 Yes Provider, Historical polyethylene glycol (GLYCOLAX) 17 gram/dose Oral Powder Take 17 g by mouth daily. Yes Provider, Historical sertraline (ZOLOFT) 50 mg Oral Tablet Take 1 Tablet by mouth daily. 10/30/24 Yes Noreen Ortega DO torsemide (DEMADEX) 20 mg Oral Tablet Take five tablets once daily. 07/09/23 Yes Deborah iL MD traMADoL (ULTRAM) 50 mg Oral Tablet Take 1 Tablet by mouth every 6 hours as needed for Pain. 10/30/24Yes Noreen Ortega, DO traZODone (DESYREL) 50 mg Oral Tablet Take 1 Tablet by mouth nightly for 180 days. 10/30/24 04/28/25 Yes Noreen Ortega DO gabapentin (NEURONTIN) 100 mg Oral Capsule Take 1 Capsule by mouth 3 times daily for 30 days. 10/30/24 11/29/24 Noreen Ortega DO Past Medical History: Past Medical History: Diagnosis Date Aortic aneurysm H/O mitral valve replacement H/O tricuspid valve repair Pleural effusion on left Surgical History: Past Surgical History: Procedure Laterality Date CARDIAC SURGERY Family History: No family history on file. Travel History: Travel Screening Question Response Have you been in contact with someone who was sick? No / Unsure Do you have any of the following new or worsening symptoms? None of these Have you traveled internationally or domestically in the last month? No Travel History Travel since 12/13/24 No documented travel since 12/13/24 Social History: Social History Socioeconomic History Marital status: Spouse name: None Number of children: None Years of education: None Highest education level: None Tobacco Use Smoking status: Former Current packs/day: 0.00 Average packs/day: 0.2 packs/day for 37.3 years (9.3 ttl pk-yrs) Types: Cigarettes Start date: 04/05/1985 Quit date: 07/29/2022 Years since quittin.4 Smokeless tobacco: Never Vaping Use Vaping status: Never Used Substance and Sexual Activity Alcohol use: Never Drug use: Never Review of Systems: All systems reviewed and negative except as outlined in the HPI. Physical Exam: BP (!) 198/94 Pulse 72 Temp 97.6 ??F (36.4 ??C) (Oral) Resp 19 SpO2 99% Temp (24hrs), Av.6 ??F (36.4 ??C), Min:97.6 ??F (36.4 ??C), Max:97.6 ??F (36.4 ??C) BP Min: 155/111 Max: 205/174 Supplemental O2: O2 Device: Nasal cannula O2 Flow Rate (L/min): 2 lpm No intake/output data recorded. No intake/output data recorded. Wt Readings from Last 2 Encounters: 10/30/24 166 lb (75.3 kg) 06/10/24 176 lb 4.8 oz (80 kg) Admit weight: Physical Examination: Constitutional: Alert and oriented to person, place, and time. No distress. HENT: PERRLA. Normocephalic and atraumatic. No JVD. No scarring or tenderness.Trachea is midline Cardiovascular: Normal rate and regular rhythm. Exam reveals no friction rub. No murmur heard. Bilateral LE pitting edema. Pulmonary/Chest: Effort normal and breath sounds abnormal. No respiratory distress. Crackles b/l Abdominal: Soft. Bowel sounds are normal. No distension. There is no tenderness. There is no rebound and no guarding. Musculoskeletal: Normal Muscle bulk. Moves all extremities. Back pain Neurological: Nonfocal. Grossly normal. Skin: Skin is warm and dry. No erythema. Radiology/Procedures/Labs: EK EKG 12 LEAD Result Date: 01/13/2025 [facility] Test Date: 2025-01-13 Pat Name: DIVYA BROWN Department: DEPID Room: 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 Active Problem List Active Hospital Problems Bilateral lower extremity edema *Acute on chronic HFrEF (heart failure with reduced ejection fraction) (HCC) Acute lumbar back pain Chronic respiratory failure with hypoxia (HCC) Acute pulmonary edema (HCC) Anemia due to stage 4 chronic kidney disease (HCC) CKD (chronic kidney disease) stage 4, GFR 15-29 ml/min (HCC) Assessment & Plan Acute on chronic HFrEF (heart failure with reduced ejection fraction) (HCC) Present on Admission: Yes Acute pulmonary edema (HCC) Present on Admission: Yes Acute decompensation secondary to missed dialysis sessions. TTE from 2020 demonstrating preserved EF with preserved fraction of 50 to 60%. CXR with Pulmonary Edema. Nephrology to assist with fluid status. Start IV diuresis. Monitor urine output. Bilateral lower extremity edema Present on Admission: Yes Apply compression stockings. Continue IV diuresis. Nephrology consulted for dialysis. CKD (chronic kidney disease) stage 4, GFR 15-29 ml/min (HCC) Present on Admission: Yes End stage renal disease on dialysis (HCC) Present on Admission: Yes Nephrology consulted for ongoing diuresis. Anemia due to stage 4 chronic kidney disease (HCC) Present on Admission: Yes EPO as per neurology. Acute lumbar back pain Present on Admission: Yes X-ray personally reviewed no evidence of acute fracture. Will obtain a CT for further analysis. Chronic respiratory failure with hypoxia (HCC) Present on Admission: Yes Baseline oxygen requirements of 2 L via nasal cannula. Remains on baseline oxygen requirements. Continue to monitor V.T.E. Prophylaxis: heparin (porcine) Diet: RENAL 60 GM CONSISTENT CARB, RENAL 2 DIET Code Status: Full Code Dispo: Pending clinical course. Discussed with nephrology Appropriate PPE was donned during this visit I have reviewed and verified the Advance Care Plan and Healthcare Surrogate with the patient and/ormedical care team Shared decision making was utilized with the patient and the provider. The patient vocalized approval of the aforementioned plan Admit time 75 minutes. This document was generated utilizing dictation software. Please excuse any overlooked spelling or gramatical errrors. Mathieu Belcher MD., [place]. 01/13/2025 4:07 PM documented in this encounter Consult Notes * Mike Carter MD - 01/13/2025 4:13 PM EDTAssociated Order(s): IP CONSULT TO NEPHROLOGY Images from the original note were not included. [facility] Inpatient Nephrology Consult Note Impression and Plan / Recommendations ESRD: --patient previously on HD at [facility] until she moved back to [facility] --has not had HD in about 3 weeks; was on HD in [place] --previously cared for by our practice --HD tomorrow and likely will need serial treatments to achieve euvolemia --will need placement locally; consult SW. Fluid Overload: --makes urine --high dose diuretics --serial HD/UF treatments HTN: --seems likely volume driven --will lower bp but leave enough room for fluid removal --will see if we can mobilize some fluid with high dose diuretics Anemia: --hgb 8.8 --epo deficient --will start ELVIN as long as HTN improved tomorrow --check iron stores CKD-MBD: --will check phos --treat accordingly Reason for Consult: esrd and no HD Requesting Physician: Dr. Belcher Active Hospital Problems Diagnosis *Acute on chronic HFrEF (heart failure with reduced ejection fraction) (HCC) Bilateral lower extremity edema Anemia due to stage 4 chronic kidney disease (HCC) CKD (chronic kidney disease) stage 4, GFR 15-29 ml/min (HCC) Acute respiratory failure with hypoxia ([facility]) History Obtained From: the patient History of Present Ilness: 59 y.o. female who was previously on HD at [facility] then moved to [facility] and recently moved back to the area but has not had HD now x 3 weeks per patient. She has a left arm AVF that looks normal with good bruit and thrill She is living with her daughter in [place], [place]. She had previously lived in [place] where she was going to dialysis in [place]. Evidently she did not have transportation from [place] to dialysis, so she was not able to go. She still has some residual renal function and makes some urine Past Medical History: Diagnosis Date Aortic aneurysm H/O mitral valve replacement H/O tricuspid valve repair Pleural effusion on left Past Surgical History: Procedure Laterality Date CARDIAC SURGERY Allergies: Patient has no known allergies. Current Medications: Scheduled Meds: Continuous Infusions: Social History: Social History Socioeconomic History Marital status: Spouse name: None Number of children: None Years of education: None Highest education level: None Tobacco Use Smoking status: Former Current packs/day: 0.00 Average packs/day: 0.2 packs/day for 37.3 years (9.3 ttl pk-yrs) Types: Cigarettes Start date: 04/05/1985 Quit date: 07/29/2022 Years since quittin.4 Smokeless tobacco: Never Vaping Use Vaping status: Never Used Substance and Sexual Activity Alcohol use: Never Drug use: Never Family History: No family history on file. Review of Systems: Constitutional: negative Respiratory: dyspnea Cardiovascular: edema Gastrointestinal: negative Genitourinary:still makes urine Neurological: negative All other systems were reviewed and were not pertinent to the clinical situation. Physical exam: Constitutional Divya is alert, well developed, well nourished, in no acute distress Patient Vitals for the past 24 hrs: BP Temp Temp src Pulse Resp SpO2 01/13/25 1600 (!) 198/94 -- -- 72 19 99 % 01/13/25 1530 (!) 205/174 -- -- 74 20 99 % 01/13/25 1500 (!) 202/95 -- -- 76 (!) 23 98 % 01/13/25 1430 (!) 198/97 -- -- 76 (!) 22 98 % 01/13/25 1405 -- -- -- 85 19 98 % 01/13/25 1400 (!) 181/100 -- -- -- -- 100 % 01/13/25 1343 (!) 155/111 -- -- -- -- 100 % 01/13/25 1337 -- -- -- -- -- 99 % 01/13/25 1330 (!) 185/100 -- -- -- -- 100 % 01/13/25 1328 (!) 185/100 97.6 ??F (36.4 ??C) Oral 86 19 96 % Iwpi-Aypp-KVL normocephalic, atraumatic, sclera and conjunctiva clear, PERRL, EOMI, oropharynx clear, good dental/gum hygiene and normal nose Neck supple, midline trachea, no tenderness, no mass, no thyromegaly, and no JVD Respiratory diminished with crackles to auscultation bilaterally, normal airflow, normal effort, symmetrical chest expansion, and clear to percussion and palpation Cardiovascular S1, S2 normal; no murmur, rub or gallop; regular rate and rhythm Abdomen soft, non-tender; bowel sounds normal; no masses, no organomegaly Lymphatic no cervical adenopathy Musculoskeletal-NeuroPsych no focal neurological deficits, affect appropriate, and alert, oriented x3 Extremities no cyanosis, clubbing. 4+edema Skin no rashes or suspicious lesions, no evidence of bleeding or bruising Data/ CBC: Lab Results Component Value Date WBC 8.2 01/13/2025 HGB 8.8 (L) 01/13/2025 HCT 28.0 (L) 01/13/2025 MCV 85.4 01/13/2025 MCHC 31.4 01/13/2025 RDW 15.8 (H) 01/13/2025 PLT 208 01/13/2025 BMP: Lab Results Component Value Date NA 136 01/13/2025 K 4.4 01/13/2025 CL 102 01/13/2025 CO2 21 (L) 01/13/2025 BUN 43 (H) 01/13/2025 CREATININE 5.65 (H) 01/13/2025 CALCIUM 8.7 01/13/2025 GLU 79 01/13/2025 Magnesium: No results found for: MG Phosphorus: No results found for: PHOS Coagulation: No results found for: PT , INR , APTT UA No results found for: SPECGRAV , UAPROTEIN , BLOODU , NITRITE , LEUKOCYTESUR , WBCUA , RBCUA ABGs: Lab Results Component Value Date INSPIREDO2 2L 01/13/2025 RADIOLOGY EK EKG 12 LEAD Result Date: 01/13/2025 [facility] Test Date: 2025-01-13 Pat Name: DIVYA BROWN Department: DEPID Room: 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 Mike Carter MD, [facility] Please feel free to reach out via [employer] Secure Chat [phone] [email or web address] documented in this encounter ED Notes * Dennis Gracia MD - 01/13/2025 1:25 PM EDT Chief Complaint Patient presents with Leg Swelling C/O central back pain and pitting edema in both lower legs. Hx-CHF, HTN, COPD, kidney failure. Hasn't had dialysis in two weeks due to transport issues. Back Pain Patient presents to the ED secondary to peripheral edema, dyspnea, orthopnea For the past couple weeks Saw onset slow worsening Patient last dialyzed 3 weeks ago States the transportation issues prevented her from dialyzing Denies pain, fever. Patient History No Known Allergies Home Medications: Prior to Admission medications Medication Sig Start Date End Date Last Dose Authorizing Provider albuterol (PROVENTIL HFA;VENTOLIN HFA) 90 mcg/actuation Inhl HFA Aerosol Inhaler Inhale 2 Puffs into the lungs every 6 hours and prn. 10/30/24 Taking Noreen Ortega DO aspirin 81 mg Oral Tablet, Chewable Take 1 Tablet by mouth daily for 360 days. 10/30/24 10/25/25 Taking Noreen Ortega DO atorvastatin (LIPITOR) 40 mg Oral Tablet Take 1 Tablet by mouth daily. 10/30/24 Taking Noreen Ortega DO b ajsvrre-S-umwjf acid (NEPHROCAP) 1 mg Oral Capsule Take 1 Capsule by mouth daily. Taking Provider, Historical calcium acetate,phosphat bind, (PHOSLO) 667 mg Oral Capsule Take two tablets with each meal. Take one tablet with each snack. 06/26/23 Taking Meredith Moses APRN carvediloL (COREG) 12.5 mg Oral Tablet Take 1 Tablet by mouth 2 times daily (with meals) for 360 days. Take one tablet by mouth twice daily 10/30/24 10/25/25 Taking Noreen Ortega DO ergocalciferol (VITAMIN D) 1,250 mcg (50,000 unit) Oral Capsule Take 1 Capsule by mouth once a week. 05/15/21 Taking Jovi Carter Ud, MD famotidine (PEPCID) 20 mg Oral Tablet Take 1 Tablet by mouth nightly for 360 days. 10/30/24 10/25/25 Taking Noreen Ortega DO hydrALAZINE (APRESOLINE) 100 mg Oral Tablet Take 1 Tablet by mouth every 8 hours. 10/30/24 Taking Noreen Ortega DO Melatonin 3 mg Oral Tablet Take 3.5 Tablets by mouth nightly for 180 days. 10/30/24 04/28/25 Taking Noreen Ortega DO oxyCODONE (ROXICODONE) 5 mg Oral Tablet Take 5 mg by mouth every 6 hours as needed. 02/21/22 Taking Provider, Historical sertraline (ZOLOFT) 50 mg Oral Tablet Take 1 Tablet by mouth daily. 10/30/24 Taking Noreen Ortega DO traMADoL (ULTRAM) 50 mg Oral Tablet Take 1 Tablet by mouth every 6 hours as needed for Pain. 10/30/24Taking Noreen Ortega DO traZODone (DESYREL) 50 mg Oral Tablet Take 1 Tablet by mouth nightly for 180 days. 10/30/24 04/28/25 Taking Noreen Ortega DO ferrous sulfate 325 mg (65 mg iron) Oral Tablet Take by mouth daily. Patient not taking: Reported on 01/13/2025 Not Taking Provider, Historical gabapentin (NEURONTIN) 100 mg Oral Capsule Take 1 Capsule by mouth 3 times daily for 30 days. 10/30/24 11/29/24 Noreen Ortega DO isosorbide mononitrate (IMDUR) 60 mg Oral Tablet Sustained Release 24 hr Take 1 Tablet by mouth every morning for 360 days. 10/30/24 10/25/25 Unknown Noreen Ortega DO polyethylene glycol (GLYCOLAX) 17 gram/dose Oral Powder Take 17 g by mouth daily. Patient not taking: Reported on 01/13/2025 Not Taking Provider, Historical torsemide (DEMADEX) 20 mg Oral Tablet Take five tablets once daily. Patient not taking: Reported on 01/13/2025 07/09/23 Not Taking Deborah Li MD Past Medical History: Past Medical History: Diagnosis Date Aortic aneurysm H/O mitral valve replacement H/O tricuspid valve repair Pleural effusion on left Social History: reports that she quit smoking about 2 years ago. Her smoking use included cigarettes. She started smoking about 39 years ago. She has a 9.3 pack-year smoking history. She has never used smokeless tobacco. She reports that she does not drink alcohol and does not use drugs. E-Cigarettes (such as Vapes or Juul) E-Cigarette Use Never User Family History: No family history on file. Surgical History: Past Surgical History: Procedure Laterality Date CARDIAC SURGERY Review of Systems Review of Systems Constitutional: Negative for fever. HENT: Negative for sore throat. Eyes: Negative for pain. Respiratory: Positive for shortness of breath. Negative for cough. Cardiovascular: Positive for leg swelling. Negative for chest pain. Gastrointestinal: Negative for abdominal pain, diarrhea, nausea and vomiting. Genitourinary: Negative for dysuria, vaginal bleeding and vaginal discharge. Musculoskeletal: Negative for neck pain. Skin: Negative for rash. Neurological: Negative for headaches. Psychiatric/Behavioral: Negative for confusion. All other systems reviewed and are negative. Physical Exam Blood pressure 114/49, pulse 76, temperature 97.8 ??F (36.6 ??C), temperature source Oral, resp. rate 18, height 5' 4 (1.626 m), weight 170 lb (77.1 kg), SpO2 94%. Physical Exam Vitals and nursing note reviewed. Constitutional: General: She is not in acute distress. Appearance: She is well-developed. HENT: Head: Normocephalic and atraumatic. Eyes: Extraocular Movements: Extraocular movements intact. Conjunctiva/sclera: Conjunctivae normal. Cardiovascular: Rate and Rhythm: Normal rate and regular rhythm. Pulses: Normal pulses. Heart sounds: Normal heart sounds. Pulmonary: Effort: Pulmonary effort is normal. No respiratory distress. Breath sounds: Rales present. Abdominal: General: There is no distension. Palpations: Abdomen is soft. Tenderness: There is no abdominal tenderness. Musculoskeletal: General: No deformity. Cervical back: Normal range of motion and neck supple. Right lower leg: Edema present. Left lower leg: Edema present. Skin: General: Skin is warm and dry. Neurological: Mental Status: She is alert. Mental status is at baseline. Motor: No abnormal muscle tone. Psychiatric: Mood and Affect: Mood normal. Behavior: Behavior normal. Procedures Radiology/EKG/Labs: Results for orders placed or performed during the hospital encounter of 01/13/25 XR LUMBAR SPINE AP AND LATERAL Narrative AP AND LATERAL LUMBAR SPINE, 01/13/2025 4:22 PM CLINICAL HISTORY: -low back pain COMPARISON: None. PROCEDURE COMMENTS: Minimum of 3 views lumbar spine per protocol. FINDINGS: No visible acute vertebral fracture or traumatic malalignment. Mild multilevel degenerative changes noted. Impression No acute abnormality of the lumbar spine. - Note: Radiology results need to be interpreted within a comprehensive clinical context. If you have questions about the radiology report, please contact the office of the ordering clinician. XR CHEST PA AND LATERAL Narrative PA AND LATERAL CHEST X-RAY, 01/13/2025 4:22 PM CLINICAL HISTORY: -missed dialysis COMPARISON: 2020 PROCEDURE COMMENTS: Frontal and lateral views of the chest. FINDINGS: Suspect mild irregular perihilar opacity. Small pleural effusion and basilar opacity. Heart size is stable with median sternotomy. Impression Question mild pulmonary edema with likely small effusions. - Note: Radiology results need to be interpreted within a comprehensive clinical context. If you have questions about the radiology report, please contact the office of the ordering clinician. CBC WITH DIFF Result Value Ref Range WBC 8.2 3.7 - 10.3 x10(3)/mcL RBC 3.28 (L) 3.90 - 5.20 x10(6)/mcL Hgb 8.8 (L) 11.2 - 15.7 g/dL Hct 28.0 (L) 34.0 - 45.0 % MCV 85.4 80.0 - 100.0 fL MCH 26.8 26.0 - 34.0 pg MCHC 31.4 30.7 - 35.5 g/dL RDW 15.8 (H) <=14.9 % Platelet 208 155 - 369 x10(3)/mcL MPV 8.7 (L) 8.8 - 12.5 fL Neut Percent 81.2 % Imm Gran% 0.5 % Lymph Percent 8.7 % [place] Percent 7.3 % Eos Percent 1.3 % Baso Percent 1.0 % Neut # 6.7 (H) 1.6 - 6.1 x10(3)/mcL IMMGRAN# 0.0 0.0 - 0.1 x10(3)/mcL Lymph # 0.7 (L) 1.2 - 3.9 x10(3)/mcL [place] # 0.6 0.3 - 0.9 x10(3)/mcL Eos# 0.1 0.0 - 0.5 x10(3)/mcL Baso # 0.1 0.0 - 0.1 x10(3)/mcL COMPREHENSIVE METABOLIC PANEL Result Value Ref Range Sodium 136 136 - 145 mmol/L Potassium 4.4 3.5 - 5.0 mmol/L Chloride 102 98 - 107 mmol/L Total CO2 21 (L) 22 - 29 mmol/L Anion Gap 13 7 - 16 mmol/L Calcium 8.7 8.6 - 10.4 mg/dL Glucose Lvl 79 70 - 99 mg/dL BUN 43 (H) 6 - 20 mg/dL Creatinine 5.65 (H) 0.51 - 1.30 mg/dL Albumin 3.2 (L) 3.5 - 5.2 gm/dL Total Protein 7.0 6.4 - 8.3 gm/dL Bili Total 0.3 0.2 - 1.3 mg/dL ALT 8 <=41 U/L AST 14 <=40 U/L Alk Phos 99 36 - 123 U/L eGFR (CKD-EPIcr 2020) 8 (L) >=60 mL/min/1.73 m2 BLOOD GAS, VENOUS Result Value Ref Range pH Venous 7.40 7.32 - 7.42 pH pCO2 Venous 37 (L) 41 - 51 mmHg pO2 Venous 143 (H) 25 - 40 mmHg Base Excess Gilson -2.0 mmol/L Hco3 Venous 22.5 (L) 24.0 - 28.0 mmol/L CO2 Total Gilson 21 (L) 25 - 29 mmol/L O2 Sat. Venous 99.9 (H) 40.0 - 70.0 % Inspired O2 2L EK EKG 12 LEAD Impression [facility] Test Date: 2025-01-13 Pat Name: DIVYA BROWN Department: DEPID Room: 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 ED Course: Appropriate laboratory and radiology studies reviewed EKG interpreted by me: Rate 78, normal sinus rhythm, no ST changes consistent with acute ischemia, no no signs of electrolyte abnormalities. Patient presents to the emergency department secondary to peripheral edema, dyspnea and orthopnea in the setting of missed dialysis for a few weeks. Differential includes volume overload, CHF, electrolyte abnormalities, anemia. Laboratory workup was obtained and is unremarkable from baseline. Patient has signs and symptoms consistent with fluid overload. Chest x-ray was obtained interpreted by carmelina pulmonary edema. Gave Bumex. Consulted nephrology who will get patient dialyzed. Patient admitted to the TCU for ongoing evaluation and treatment. ED Clinical Impression: 1. Bilateral lower extremity edema 2. Hypervolemia, unspecified hypervolemia type 3. Acute midline low back pain without sciatica 4. End stage renal disease on dialysis (HCC) heparin (porcine) bolus infusion 2,000 Units FERRITIN IRON+TIBC PARATHYROID HORMONE INTACT FERRITIN IRON+TIBC PARATHYROID HORMONE INTACT DISCONTINUED: heparin (porcine) maintenance infusion DISCONTINUED: heparin (porcine) injection 1,000 Units DISCONTINUED: heparin (porcine) injection 1,000 Units DISCONTINUED: sodium chloride 0.9% syringe 10 mL DISCONTINUED: sodium chloride 0.9% syringe 10 mL CANCELED: HEMODIALYSIS INPATIENT CANCELED: NURSING COMMUNICATION CANCELED: NURSING COMMUNICATION CANCELED: NURSING OXYGEN ORDERS/INSTRUCTIONS CANCELED: HEMODIALYSIS INPATIENT CANCELED: NURSING COMMUNICATION CANCELED: NURSING COMMUNICATION CANCELED: NURSING OXYGEN ORDERS/INSTRUCTIONS Critical Care time I spent 35 minutes caring for this critically ill patient. This time includes frequent reassessments of the patient at the bedside, monitoring vitals, referring to old notes and diagnostics in the EMR, interpreting new labs and studies as they were resulted, administering therapies and assessing their effects. The time involved in the performance of separately reportable procedures was not counted toward critical care time. MDM Medical Decision Making Problems Addressed: Acute midline low back pain without sciatica: complicated acute illness or injury Bilateral lower extremity edema: complicated acute illness or injury Hypervolemia, unspecified hypervolemia type: complicated acute illness or injury Amount and/or Complexity of Data Reviewed Labs: ordered. Radiology: ordered. Risk Prescription drug management. Decision regarding hospitalization. Condition at Discharge/Transfer from Department: Improved This chart was completed using voice recognition technology and may contain unintended errors Dennis Gracia MD 01/14/25 1630 documented in this encounter Miscellaneous Notes * RT Oxygen Plan of Care Note - Kirti Villafana RRT - 01/18/2025 8:05 PM EDT Images from the original note were not included. January 18, 2025 Oxygen Therapy: Maintain Oxygen Sat greater than or equal to: >90 O2 Device: Nasal cannula O2 Flow Rate (L/min): 2 lpm SpO2: 97 % Will continue to wean oxygen as tolerated to maintain titration goal. Kirti Villafana RRT * Utilization Review Notes - Christina Singh RN - 01/14/2025 2:18 PM EDT [facility]; inpt order in chart; ED admit as obs to telemetry on 01/13/25; changed to inpt for continued management on 01/14/25 Acute on Chronic CHF - chest x ray reveals pulmonary edema - baseline O2 2 L NC - missed dialysis; nephrology consulted; dialysis recommended today and tomorrow, 01/15/25 with serial treatments - SW following - Bumex IV 4mg BID, Coreg PO, Heparin SQ, Hydralazine PO, Hydralazine IV x 1, Percocet PO - Cr 5.65 and 5.88 D/C plan; CC following * Utilization Review Notes - Deborah Morris RN - 01/13/2025 4:43 PM EDT PATIENT ADMITTED OBS PT ADMITTED TO TCU ON 01/13 FOR Acute on chronic HFrEF (heart failure with reduced ejection fraction) ORDER IS ON THE CHART VITALS 185/100,181/100,202/95,205/174, 198/94 LABS BUN 43, CREATININE 5.65 MEDS BUMEX IV , HEPARIN SQ CONSULTS NEPHROLOGY PT IS NOTED TO HAVE PITTING EDEMA IN BOTH LEGS , PER THE CHART THE PT HAS MISSED 3 WEEKS OF HD . ITS ANTICIPATED THE PT WILL NEED SEVERAL DAYS OF HD . PER MD NOTES PENDING DC PLAN CC TO FOLLOW documented in this encounter Plan of Treatment Upcoming Encounters Date Type Department Care Team (Late st Contact Info) Description 02/09/2025 1:15 PM EDT Office Visit [facility] Nephrology [place] [address] [place] [address] Deborah Li MD [address] [place] [address] documented as of this encounter Goals Goal Patient Goal Type Associated Problems Recent Progress Patient-Stated? Author Blood Pressure < 140/90 Blood Pressure 142/73(2024 12:30 PM EDT) No Yakelin Sutton CCMA Maintain a healthy diet, exercise regularly and maintain an ideal body weight General No Yakelin Sutton CCMA Stay Tobacco Free Lifestyle No Yakelin Sutton CCMA documented as of this encounter Procedures Procedure Name Priority Date/Time Associated Diagnosis Comments ECG AND WAVEFORMS - TELEMETRY Routine 01/19/2025 7:00 AM EDT ECG AND WAVEFORMS - TELEMETRY Routine 01/18/2025 7:51 PM EDT ECG AND WAVEFORMS - TELEMETRY Routine 01/18/2025 7:00 AM EDT EXTRA TUBES PANEL Routine 01/18/2025 6:08 AM EDT EXTRA MINT GREEN LI Routine 01/18/2025 6:08 AM EDT PLATELET COUNT Timed 01/18/2025 6:08 AM EDT CBC WITH DIFF STAT 01/18/2025 6:08 AM EDT End stage renal disease on dialysis (HCC) RENAL FUNCTION PANEL STAT 01/18/2025 6:08 AM EDT End stage renal disease on dialysis (HCC) ECG AND WAVEFORMS - TELEMETRY Routine 01/17/2025 7:03 PM EDT ECG AND WAVEFORMS - TELEMETRY Routine 01/17/2025 7:00 AM EDT ECG AND WAVEFORMS - TELEMETRY Routine 01/16/2025 7:58 PM EDT ECG AND WAVEFORMS - TELEMETRY Routine 01/16/2025 7:00 AM EDT CBC Early AM 01/16/2025 6:13 AM EDT PLATELET COUNT Timed 01/16/2025 6:13 AM EDT BASIC METABOLIC PANEL Early AM 01/16/2025 6:13 AM EDT ECG AND WAVEFORMS - TELEMETRY Routine 01/15/2025 7:00 PM EDT ECG AND WAVEFORMS - TELEMETRY Routine 01/15/2025 7:18 AM EDT CBC Early AM 01/15/2025 5:38 AM EDT BASIC METABOLIC PANEL Early AM 01/15/2025 5:38 AM EDT ECG AND WAVEFORMS - TELEMETRY Routine 01/14/2025 7:30 PM EDT ADMIT Routine 01/14/2025 2:27 PM EDT SCANNED EKG 01/14/2025 9:19 AM EDT PARATHYROID HORMONE INTACT Routine 01/14/2025 8:20 AM EDT End stage renal disease on dialysis (HCC) ECG AND WAVEFORMS - TELEMETRY Routine 01/14/2025 7:02 AM EDT IRON+TIBC Routine 01/14/2025 5:43 AM EDT End stage renal disease on dialysis (HCC) CBC Early AM 01/14/2025 5:43 AM EDT FERRITIN Routine 01/14/2025 5:43 AM EDT End stage renal disease on dialysis (HCC) BASIC METABOLIC PANEL Early AM 01/14/2025 5:43 AM EDT ECG AND WAVEFORMS - TELEMETRY Routine 01/13/2025 7:00 PM EDT ECG AND WAVEFORMS - TELEMETRY Routine 01/13/2025 6:[address] LUMBAR SPINE WO CONTRAST STAT 01/13/2025 5:14 PM EDT HEPATITIS B CORE AB TOTAL STAT 01/13/2025 5:01 PM EDT HCV ANTIBODY SCREEN W/ REFLEX STAT 01/13/2025 5:01 PM EDT HEPATITIS B SURFACE ANTIBODY STAT 01/13/2025 5:01 PM EDT HEPATITIS B SURFACE ANTIBODY STAT 01/13/2025 5:01 PM EDT HEPATITIS B SURFACE ANTIGEN STAT 01/13/2025 5:01 PM EDT XR LUMBAR SPINE AP AND LATERAL MART 01/13/2025 4:22 PM EDT XR CHEST PA AND LATERAL STAT 01/13/2025 4:22 PM EDT ADMIT Routine 01/13/2025 4:03 PM EDT IP CONSULT TO NEPHROLOGY Routine 01/13/2025 3:59 PM EDT Procedure Note - Mike Carter MD - 01/13/2025 4:13 PM EDTThis note is in progress. Images from the original note were not included. [facility] Inpatient NephrologyConsult Note Impression and Plan / Recommendations ESRD: --[facility] --has not had HD in about 3 weeks; was on HD in [place] --previously cared for by our practice --HD tomorrow and likely will need serial treatments to achieveeuvolemia --will need placement locally; consult SW. Fluid Overload: --makes urine --high dose diuretics --serial HD/UF treatments HTN: --seems likely volume driven --will lower bp but leave enough room for fluid removal --will see if we can mobilize some fluid with high dose diuretics Anemia: --hgb 8.8 --epo deficient --will start ELVIN as long as HTN improved tomorrow --check iron stores CKD-MBD: --will check phos --treat accordingly Reason for Consult: esrd and no HD Requesting Physician: Dr. Belcher Active Hospital Problems Diagnosis *Acute on chronic HFrEF (heart failure with reduced ejection fraction)(HCC) Bilateral lower extremity edema Anemia due to stage 4 chronic kidney disease (HCC) CKD (chronic kidney disease) stage 4, GFR 15-29 ml/min (HCC) Acute respiratory failure with hypoxia (HCC) History Obtained From: the patient History of Present Ilness: 59 y.o. female who [facility] and recently moved back to the area but has not had HD now x3 weeks per patient. She has a left arm AVF that looks normal with good bruit and thrill She is living with her daughter in [place], [place]. She had previously livedin [place] where she was going to dialysis in [place]. Evidently she did not have transportation from [place] to dialysis, [facility] was not able to go. She still has some residual renal function and makes some urine Past Medical History: Diagnosis Date Aortic aneurysm H/O mitral valve replacement H/O tricuspid valve repair Pleural effusion on left Past Surgical History: Procedure Laterality Date CARDIAC SURGERY Allergies: Patient has no known allergies. Current Medications: Scheduled Meds: Continuous Infusions: Social History: Social History Socioeconomic History Marital status: Spouse name: None Number of children: None Years of education: None Highest education level: None Tobacco Use Smoking status: Former Current packs/day: 0.00 Average packs/day: 0.2 packs/day for 37.3 years (9.3 ttl pk-yrs) Types: Cigarettes Start date: 04/05/1985 Quit date: 07/29/2022 Years since quittin.4 Smokeless tobacco: Never Vaping Use Vaping status: Never Used Substance and Sexual Activity Alcohol use: Never Drug use: Never Family History: No family history on file. Review of Systems: Constitutional: negative Respiratory: dyspnea Cardiovascular: edema Gastrointestinal: negative Genitourinary:still makes urine Neurological: negative All other systems were reviewed and were not pertinent to the clinicalsituation. Physical exam: Constitutional Divya is alert, well developed, well nourished, in no acutedistress Patient Vitals for the past 24 hrs: BP Temp Temp src Pulse Resp SpO2 01/13/25 1600 (!) 198/94 -- -- 72 19 99 % 01/13/25 1530 (!) 205/174 -- -- 74 20 99 % 01/13/25 1500 (!) 202/95 -- -- 76 (!) 23 98 % 01/13/25 1430 (!) 198/97 -- -- 76 (!) 22 98 % 01/13/25 1405 -- -- -- 85 19 98 % 01/13/25 1400 (!) 181/100 -- -- -- -- 100 % 01/13/25 1343 (!) 155/111 -- -- -- -- 100 % 01/13/25 1337 -- -- -- -- -- 99 % 01/13/25 1330 (!) 185/100 -- -- -- -- 100 % 01/13/25 1328 (!) 185/100 97.6 F (36.4 C) Oral 86 19 96 % Fzco-Ceqi-VXI normocephalic, atraumatic, sclera and conjunctiva clear,PERRL, EOMI, oropharynx clear, good dental/gum hygiene and normal nose Neck supple, midline trachea, no tenderness, no mass, no thyromegaly, andno JVD Respiratory diminished with crackles to auscultation bilaterally, normalairflow, normal effort, symmetrical chest expansion, and clear topercussion and palpation Cardiovascular S1, S2 normal; no murmur, rub or gallop; regular rate andrhythm Abdomen soft, non-tender; bowel sounds normal; no masses, noorganomegaly Lymphatic no cervical adenopathy Musculoskeletal-NeuroPsych no focal neurological deficits, affectappropriate, and alert, oriented x3 Extremities no cyanosis, clubbing. 4+edema Skin no rashes or suspicious lesions, no evidence of bleeding orbruising Data/ CBC: Lab Results Component Value Date WBC 8.2 01/13/2025 HGB 8.8 (L) 01/13/2025 HCT 28.0 (L) 01/13/2025 MCV 85.4 01/13/2025 MCHC 31.4 01/13/2025 RDW 15.8 (H) 01/13/2025 PLT 208 01/13/2025 BMP: Lab Results Component Value Date NA 136 01/13/2025 K 4.4 01/13/2025 CL 102 01/13/2025 CO2 21 (L) 01/13/2025 BUN 43 (H) 01/13/2025 CREATININE 5.65 (H) 01/13/2025 CALCIUM 8.7 01/13/2025 GLU 79 01/13/2025 Magnesium: No results found for: MG Phosphorus: No results found for: PHOS Coagulation: No results found for: PT , INR , APTT UA No results found for: SPECGRAV , UAPROTEIN , BLOODU , NITRITE , LEUKOCYTESUR , WBCUA , RBCUA ABGs: Lab Results Component Value Date INSPIREDO2 2L 01/13/2025 RADIOLOGY EK EKG 12 LEAD Result Date: 01/13/2025 [facility] Date:2025-01-13 Pat Name: DIVYA ZAHEER Department: DEPIDPatient ID: [id number] Room: 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 Mike Carter MD, FASN [facility] Please feel free to reach out via [employer] Secure Chat [phone] [email or web address] BLOOD GAS, VENOUS STAT 01/13/2025 2:03 PM EDT CBC WITH DIFF STAT 01/13/2025 1:35 PM EDT COMPREHENSIVE METABOLIC PANEL STAT 01/13/2025 1:35 PM EDT EK EKG 12 LEAD STAT 01/13/2025 1:30 PM EDT documented in this encounter Results * ECG AND WAVEFORMS - TELEMETRY (01/19/2025 7:00 AM EDT) ECG INTERPRET Sinus Bradycardia [facility] Comment:1st degree 01/19/2025 7:00 AM EDT Narrative [facility] - 01/19/2025 9:02 AM EDT ROUTINE SDP UT 0.22 QRS 0.11 RR 1.10 QT 0.49 See Clinical Report link for waveform capture us Unknown Provider POINT OF CARE CARDIOLOGY Final Result [facility] [address] [place] [address] * ECG AND WAVEFORMS - TELEMETRY (01/18/2025 7:51 PM EDT) ECG INTERPRET NSR [facility] 01/18/2025 7:51 PM EDT Narrative [facility] - 01/18/2025 7:55 PM EDT TW/ROUTINE UT 0.20 QRS 0.09 RR 0.91 QT 0.41 See Clinical Report link for waveform capture us Unknown Provider POINT OF CARE CARDIOLOGY Final Result Performing Organization Address [facility]/ZIP Co de Phone Number [facility] [address] [place] [address] * ECG AND WAVEFORMS - TELEMETRY (01/18/2025 7:00 AM EDT) [facility] ECG INTERPRET NSR [facility] 01/18/2025 7:00 AM EDT Narrative [facility] - 01/18/2025 7:32 AM EDT ROUTINE W/ PAC (LZ) UT 0.20 QRS 0.10 RR 0.92 QT 0.46 QTc 0.48 See Clinical Report link for waveform capture us Unknown Provider POINT OF CARE CARDIOLOGY Final Result Performing Organization Address [facility] de Phone Number [facility] [address] [place] [address] * (ABNORMAL) RENAL FUNCTION PANEL (01/18/2025 6:08 AM EDT) [facility] Sodium 138 136 - 145 mmol/L 01/18/2025 7:37 AM EDT [facility] Potassium 4.0 3.5 - 5.0 mmol/L 01/18/2025 7:37 AM EDT [facility] Chloride 102 98 - 107 mmol/L 01/18/2025 7:37 AM EDT [facility] Total CO2 25 22 - 29 mmol/L 01/18/2025 7:37 AM EDT [facility] Anion Gap 11 7 - 16 mmol/L 01/18/2025 7:37 AM EDT [facility] Calcium 8.6 8.6 - 10.4 mg/dL 01/18/2025 7:37 AM EDT [facility] Glucose Lvl 67(L) 70 - 99 mg/dL 01/18/2025 7:37 AM EDT [facility] BUN 22(H) 6 - 20 mg/dL 01/18/2025 7:37 AM EDT [facility] Creatinine 5.76(H) 0.51 - 1.30 mg/dL 01/18/2025 7:37 AM EDT [facility] Albumin 2.8(L) 3.5 - 5.2 gm/dL 01/18/2025 7:37 AM EDT [facility] Phosphorus 6.2(H) 2.5 - 4.5 mg/dL 01/18/2025 7:37 AM EDT [facility] eGFR (CKD-EPIcr 2020) 8(L) >=60 mL/min/1.7 3 m2 01/18/2025 7:37 AM EDT [facility] Comment:Estimated GFR was ca lculated using the CKD-EPIcr (2020) equation refit without race. The equation is recommended by the National Kidney [employer] - [place] [employer] Nephrology Task Force. Blood VENOUS BLOOD / Unknown Venipuncture / Unknown 01/18/2025 6:08 AM EDT 01/18/2025 6:58 AM EDT us Mike Carter MD CHEMISTRY ORDERABLES Final Resu lt [facility] [address] [place] [phone] * (ABNORMAL) CBC WITH DIFF (01/18/2025 6:08 AM EDT) WBC 5.6 3.7 - 10.3 x10(3)/mcL 01/18/2025 7:43 AM EDT [facility] RBC 3.12(L) 3.90 - 5.20 x10(6)/mcL 01/18/2025 7:43 AM EDT [facility] Hgb 8.5(L) 11.2 - 15.7 g/dL 01/18/2025 7:43 AM EDT [facility] Hct 28.7(L) 34.0 - 45.0 % 01/18/2025 7:43 AM EDT [facility] MCV 92.2 80.0 - 100.0 fL 01/18/2025 7:43 AM EDT [facility] MCH 27.9 26.0 - 34.0 pg 01/18/2025 7:43 AM EDT [facility] MCHC 30.3(L) 30.7 - 35.5 g/dL 01/18/2025 7:43 AM EDT [facility] RDW 15.9(H) <=14.9 % 01/18/2025 7:43 AM EDT [facility] Platelet 228 155 - 369 x10(3)/mcL 01/18/2025 7:43 AM EDT [facility] MPV 9.6 8.8 - 12.5 fL 01/18/2025 7:43 AM EDT [facility] Neut Percent 70.6 % 01/18/2025 7:43 AM EDT [facility] Comment:Neutrophils equals s egs plus bands Imm Gran% 0.4 % 01/18/2025 7:43 AM EDT [facility] Comment:Automated count of m etamyelocytes, myelocytes and promyelocytes. Lymph Percent 16.5 % 01/18/2025 7:43 AM EDT [facility] [place] Percent 9.3 % 01/18/2025 7:43 AM EDT [facility] Eos Percent 2.3 % 01/18/2025 7:43 AM EDT [facility] Baso Percent 0.9 % 01/18/2025 7:43 AM EDT [facility] Neut # 4.0 1.6 - 6.1 x10(3)/mcL 01/18/2025 7:43 AM EDT [facility] Comment:Neutrophils equals s egs plus bands IMMGRAN# 0.0 0.0 - 0.1 x10(3)/mcL 01/18/2025 7:43 AM EDT [facility] Comment:Automated count of m etamyelocytes, myelocytes and promyelocytes. An absolute IG <0.1 is reported as 0.0. Lymph # 0.9(L) 1.2 - 3.9 x10(3)/mcL 01/18/2025 7:43 AM EDT [facility] [place] # 0.5 0.3 - 0.9 x10(3)/mcL 01/18/2025 7:43 AM EDT [facility] Eos# 0.1 0.0 - 0.5 x10(3)/mcL 01/18/2025 7:43 AM EDT [facility] Baso # 0.1 0.0 - 0.1 x10(3)/mcL 01/18/2025 7:43 AM EDT [facility] Blood VENOUS BLOOD / Unknown Venipuncture / Unknown 01/18/2025 6:08 AM EDT 01/18/2025 6:47 AM EDT us Mike Carter MD HEMATOLOGY ORDERABLES Final Res ult Performing Organization Address [facility] Co de Phone Number [facility] [address] [phone] * EXTRA MINT ROSIBEL MILLER (01/18/2025 6:08 AM EDT) Blood VENOUS BLOOD / Unknown Venipuncture / Unknown 01/18/2025 6:08 AM EDT 01/18/2025 6:58 AM EDT Mathieu Belcher MD CHEMISTRY ORDERABLES Final Result Performing Organization Address [facility] de Phone Number [facility] [address] [phone] * PLATELET COUNT (01/18/2025 6:08 AM EDT) Platelet 228 155 - 369 x10(3)/mcL 01/18/2025 6:50 AM EDT [facility] MPV 9.6 8.8 - 12.5 fL 01/18/2025 6:50 AM EDT [facility] Blood VENOUS BLOOD / Unknown Venipuncture / Unknown 01/18/2025 6:08 AM EDT 01/18/2025 6:47 AM EDT Mathieu Belcher MD HEMATOLOGY ORDERABLES [place] Result Performing Organization Address [facility] Co de Phone Number [place] [phone] * ECG AND WAVEFORMS - TELEMETRY (01/17/2025 7:03 PM EDT) ECG INTERPRET Sinus Arrythmia [facility] 01/17/2025 7:03 PM EDT Narrative [facility] - 01/17/2025 9:29 PM EDT Routine 1900/qj UT 0.17 QRS 0.09 QT 0.43 See Clinical Report link for waveform capture us Unknown Provider POINT OF CARE CARDIOLOGY Final Result Performing Organization Address City/[facility]/ZIP Co de Phone Number [facility] [address] [place] [address] * ECG AND WAVEFORMS - TELEMETRY (01/17/2025 7:00 AM EDT) ECG INTERPRET NSR with PAC's [facility] 01/17/2025 7:00 AM EDT Narrative [facility] - 01/17/2025 7:14 AM EDT Freq. PACs// HW ROUTINE UT 0.19 QRS 0.10 RR 0.94 QT 0.45 QTc 0.46 See Clinical Report link for waveform capture us Unknown Provider POINT OF CARE CARDIOLOGY Final Result Performing Organization Address [facility]/ZIP Co de Phone Number [facility] [address] [place] [address] * ECG AND WAVEFORMS - TELEMETRY (01/16/2025 7:58 PM EDT) ECG INTERPRET NSR with PAC's [facility] 01/16/2025 7:58 PM EDT Narrative [facility] - 01/16/2025 8:01 PM EDT UPI-XNP-NAEYUYT /KD UT 0.19 QRS 0.11 RR 0.91 QT 0.49 See Clinical Report link for waveform capture us Unknown Provider POINT OF CARE CARDIOLOGY Final Result Performing Organization Address City/[facility]/ZIP Co de Phone Number [facility] [address] [place] [address] * ECG AND WAVEFORMS - TELEMETRY (01/16/2025 7:00 AM EDT) Pathologist [facility] ECG INTERPRET NSR with PAC's [facility] 01/16/2025 7:00 AM EDT Narrative [facility] - 01/16/2025 7:12 AM EDT TRO/AM ROUTINE- SR PAC UT 0.17 QRS 0.11 RR 0.93 QT 0.46 QTc 0.48 See Clinical Report link for waveform capture us Unknown Provider POINT OF CARE CARDIOLOGY Final Result Performing Organization Address [facility]/ZIP Co de Phone Number [facility] [address] [place] [address] * PLATELET COUNT (01/16/2025 6:13 AM EDT) [facility] Platelet 268 155 - 369 x10(3)/mcL 01/16/2025 7:19 AM EDT [facility] MPV 9.4 8.8 - 12.5 fL 01/16/2025 7:19 AM EDT [facility] Blood VENOUS BLOOD / Unknown Venipuncture / Unknown 01/16/2025 6:13 AM EDT 01/16/2025 7:10 AM EDT us Mathieu Belcher MD HEMATOLOGY ORDERABLES [place] Result [facility] [address] [place] [phone] * (ABNORMAL) CBC (01/16/2025 6:13 AM EDT) Pathologist [facility] WBC 5.3 3.7 - 10.3 x10(3)/mcL 01/16/2025 7:19 AM EDT [facility] RBC 3.20(L) 3.90 - 5.20 x10(6)/mcL 01/16/2025 7:19 AM EDT [facility] Hgb 8.6(L) 11.2 - 15.7 g/dL 01/16/2025 7:19 AM EDT [facility] Hct 28.5(L) 34.0 - 45.0 % 01/16/2025 7:19 AM EDT [facility] MCV 89.1 80.0 - 100.0 fL 01/16/2025 7:19 AM EDT [facility] MCH 26.9 26.0 - 34.0 pg 01/16/2025 7:19 AM EDT [facility] MCHC 30.2(L) 30.7 - 35.5 g/dL 01/16/2025 7:19 AM EDT [facility] RDW 15.8(H) <=14.9 % 01/16/2025 7:19 AM EDT [facility] Platelet 268 155 - 369 x10(3)/mcL 01/16/2025 7:19 AM EDT [facility] MPV 9.4 8.8 - 12.5 fL 01/16/2025 7:19 AM EDT [facility] Blood VENOUS BLOOD / Unknown Venipuncture / Unknown 01/16/2025 6:13 AM EDT 01/16/2025 7:10 AM EDT us Mathieu Belcher MD HEMATOLOGY ORDERABLES [place] Result [facility] [address] [place] [phone] * (ABNORMAL) BASIC METABOLIC PANEL (01/16/2025 6:13 AM EDT) Sodium 136 136 - 145 mmol/L 01/16/2025 7:44 AM EDT [facility] Potassium 3.9 3.5 - 5.0 mmol/L 01/16/2025 7:44 AM EDT [facility] Chloride 101 98 - 107 mmol/L 01/16/2025 7:44 AM EDT [facility] Total CO2 24 22 - 29 mmol/L 01/16/2025 7:44 AM EDT [facility] Anion Gap 11 7 - 16 mmol/L 01/16/2025 7:44 AM EDT [facility] Calcium 8.5(L) 8.6 - 10.4 mg/dL 01/16/2025 7:44 AM EDT [facility] Glucose Lvl 62(L) 70 - 99 mg/dL 01/16/2025 7:44 AM EDT [facility] BUN 9 6 - 20 mg/dL 01/16/2025 7:44 AM EDT [facility] Creatinine 2.83(H) 0.51 - 1.30 mg/dL 01/16/2025 7:44 AM EDT [facility] eGFR (CKD-EPIcr 2020) 19(L) >=60 mL/min/1.7 3 m2 01/16/2025 7:44 AM EDT [facility] Comment:Estimated GFR was ca lculated using the CKD-EPIcr (2020) equation refit without race. The equation is recommended by the National Kidney Foundation - [place] [employer] of Nephrology Task Force. Blood VENOUS BLOOD / Unknown Venipuncture / Unknown 01/16/2025 6:13 AM EDT 01/16/2025 7:13 AM EDT us Mathieu Belcher MD CHEMISTRY ORDERABLES Final Result Performing Organization Address City/[facility]/ZIP Co de Phone Number [facility] [address] [place] [phone] * ECG AND WAVEFORMS - TELEMETRY (01/15/2025 7:00 PM EDT) ECG INTERPRET NSR [facility] 01/15/2025 7:00 PM EDT Narrative [facility] - 01/15/2025 7:03 PM EDT ROUTINE/PVC/COMMUNICATIONS MANAGER UT 0.17 QRS 0.08 RR 0.81 QT 0.42 QTc 0.47 See Clinical Report link for waveform capture us Unknown Provider POINT OF CARE CARDIOLOGY Final Result [facility] [address] [place] [address] * ECG AND WAVEFORMS - TELEMETRY (01/15/2025 7:18 AM EDT) [facility] ECG INTERPRET NSR [facility] 01/15/2025 7:18 AM EDT Narrative [facility] - 01/15/2025 7:24 AM EDT ROUTINE(DT) UT 0.19 QRS 0.08 RR 0.95 QT 0.49 QTc 0.50 See Clinical Report link for waveform capture us Unknown Provider POINT OF CARE CARDIOLOGY Final Result [facility] [address] [place] [address] * (ABNORMAL) CBC (01/15/2025 5:38 AM EDT) [facility] WBC 5.7 3.7 - 10.3 x10(3)/mcL 01/15/2025 6:28 AM EDT [facility] RBC 3.53(L) 3.90 - 5.20 x10(6)/mcL 01/15/2025 6:28 AM EDT [facility] Hgb 9.4(L) 11.2 - 15.7 g/dL 01/15/2025 6:28 AM EDT [facility] Hct 30.9(L) 34.0 - 45.0 % 01/15/2025 6:28 AM EDT [facility] MCV 87.5 80.0 - 100.0 fL 01/15/2025 6:28 AM EDT [facility] MCH 26.6 26.0 - 34.0 pg 01/15/2025 6:28 AM EDT [facility] MCHC 30.4(L) 30.7 - 35.5 g/dL 01/15/2025 6:28 AM EDT [facility] RDW 15.8(H) <=14.9 % 01/15/2025 6:28 AM EDT [facility] Platelet 241 155 - 369 x10(3)/mcL 01/15/2025 6:28 AM EDT [facility] MPV 9.5 8.8 - 12.5 fL 01/15/2025 6:28 AM EDT [facility] Blood VENOUS BLOOD / Unknown Venipuncture / Unknown 01/15/2025 5:38 AM EDT 01/15/2025 6:25 AM EDT us Mathieu Belcher MD HEMATOLOGY ORDERABLES [place] Result [facility] [address] [place] [address] * (ABNORMAL) BASIC METABOLIC PANEL (01/15/2025 5:38 AM EDT) Sodium 135(L) 136 - 145 mmol/L 01/15/2025 6:50 AM EDT [facility] Potassium 4.0 3.5 - 5.0 mmol/L 01/15/2025 6:50 AM EDT [facility] Chloride 102 98 - 107 mmol/L 01/15/2025 6:50 AM EDT [facility] Total CO2 23 22 - 29 mmol/L 01/15/2025 6:50 AM EDT [facility] Anion Gap 10 7 - 16 mmol/L 01/15/2025 6:50 AM EDT [facility] Calcium 8.7 8.6 - 10.4 mg/dL 01/15/2025 6:50 AM EDT [facility] Glucose Lvl 79 70 - 99 mg/dL 01/15/2025 6:50 AM EDT [facility] BUN 20 6 - 20 mg/dL 01/15/2025 6:50 AM EDT [facility] Creatinine 3.69(H) 0.51 - 1.30 mg/dL 01/15/2025 6:50 AM EDT [facility] eGFR (CKD-EPIcr 2020) 13(L) >=60 mL/min/1.7 3 m2 01/15/2025 6:50 AM EDT [facility] Comment:Estimated GFR was ca lculated using the CKD-EPIcr (2020) equation refit without race. The equation is recommended by the National Kidney [employer] - [place] [employer] Nephrology Task Force. Blood VENOUS BLOOD / Unknown Venipuncture / Unknown 01/15/2025 5:38 AM EDT 01/15/2025 6:24 AM EDT us Mathieu Belcher MD CHEMISTRY ORDERABLES Final Result Performing Organization Address City/[facility]/ZIP Co de Phone Number [facility] [address] [place] [address] * ECG AND WAVEFORMS - TELEMETRY (01/14/2025 7:30 PM EDT) [facility] ECG INTERPRET NSR [facility] 01/14/2025 7:30 PM EDT Narrative [facility] - 01/14/2025 7:38 PM EDT ROUTINE W/ PAC (LZ) UT 0.16 QRS 0.09 RR 0.85 QT 0.39 QTc 0.42 See Clinical Report link for waveform capture us Unknown Provider POINT OF CARE CARDIOLOGY Final Result Performing Organization Address [facility] de Phone Number [facility] [address] [place] [address] * SCANNED EKG (01/14/2025 9:19 AM EDT) Anatomical Region Laterality Modality Other 01/14/2025 9:19 AM EDT us Unknown Provider IMG ECG ORDERABLES Final Result * (ABNORMAL) PARATHYROID HORMONE INTACT (01/14/2025 8:20 AM EDT) PTH Intact 156.00(H) 15.00 - 65.00 pg/mL 01/14/2025 11:42 AM EDT [facility] [employer] Blood VENOUS BLOOD / Unknown Venipuncture / Unknown 01/14/2025 8:20 AM EDT 01/14/2025 8:20 AM EDT Narrative [facility] - 01/14/2025 11:42 AM EDT Intact PTH Calcium Interpretation ------- 15 - 65 8.6 - 10.2 Normal > 65 > 10.2 Primary Hyperparathyroidism < 20 > 10.2 Non-Parathyroid hypercalcemia < 15 < 8.6 Hypoparathyroidism Consider the above as guidelines only. PTH results should be interpreted in conjunction with the total or ionized calcium level. The finding of a persistently high-normal calcium accompanied by a high-normal PTH (or a low-normal calcium accompanied by a low-normal PTH) warrants further investigation. Although the PTH may itself be within normal limits, it may be inappropriately high (or low) relative to the circulating calcium level. Ingestion of taj doses of biotin (>5 mg/day) taken within 8 hours of drawing blood sample can interfere with this immunoassay test. us Mike Carter MD CHEMISTRY ORDERABLES Final Resu lt Performing Organization Address City/[facility]/ZIP Co de Phone Number [facility] [address] [place] [address], [place] [address] * ECG AND WAVEFORMS - TELEMETRY (01/14/2025 7:02 AM EDT) [facility] ECG INTERPRET NSR [facility] 01/14/2025 7:02 AM EDT Narrative [facility] - 01/14/2025 7:10 AM EDT ROUTINE-BB UT 0.16 QRS 0.10 RR 0.83 QT 0.45 QTc 0.49 See Clinical Report link for waveform capture us Unknown Provider POINT OF CARE CARDIOLOGY Final Result Performing Organization Address [facility]/ZIP Co de Phone Number [facility] [address] [place] [phone] * (ABNORMAL) IRON+TIBC (01/14/2025 5:43 AM EDT) [facility] Iron 30 30 - 160 mcg/dL 01/14/2025 12:09 PM EDT [facility] [employer] [facility] Transferrin 104(L) 200 - 360 mg/dL 01/14/2025 12:09 PM EDT [facility] [place], [facility] [employer] Saturation 21 20 - 50 % 01/14/2025 12:09 PM EDT [facility] [place], [facility] TIBC 146(L) 250 - 400 mcg/dL 01/14/2025 12:09 PM EDT [facility] [employer] [facility] Blood VENOUS BLOOD / Unknown Venipuncture / Unknown 01/14/2025 5:43 AM EDT 01/14/2025 6:26 AM EDT us Mike Carter MD CHEMISTRY ORDERABLES Final Resu lt Performing Organization Address [facility]/ZIP Co de Phone Number [facility] [address] [place] [address] [facility] [address] , [address] [place] [phone] * (ABNORMAL) FERRITIN (01/14/2025 5:43 AM EDT) Ferritin 954(H) 30 - 150 ng/mL 01/14/2025 12:09 PM EDT [facility] [employer] [facility] Comment:The lower threshold of 30 is not statistically defined, nor internally validated. The threshold has been updated to more closely reflect a physiologic basis. Alissa Osuna, et al. Physiologically based serum ferritin thresholds for iron deficiency in children and non- women: a [place] National Health and Nutrition Examination Surveys (NHANES) serial cross-sectional study. Lancet Haematol 202;8:e572-82. Blood VENOUS BLOOD / Unknown Venipuncture / Unknown 01/14/2025 5:43 AM EDT 01/14/2025 6:26 AM EDT Narrative [facility] - 01/14/2025 12:09 PM EDT Ingestion of taj doses of biotin (>5 mg/day) taken within 8 hours of drawing blood sample can interfere with this immunoassay test. us Mike Carter MD CHEMISTRY ORDERABLES Final Resu lt Performing Organization Address [facility]/ZIP Co de Phone Number [facility] [address] [place] [address] [facility] [employer] [address], [place] [address] * (ABNORMAL) CBC (01/14/2025 5:43 AM EDT) [facility] WBC 6.0 3.7 - 10.3 x10(3)/mcL 01/14/2025 6:33 AM EDT [facility] RBC 3.02(L) 3.90 - 5.20 x10(6)/mcL 01/14/2025 6:33 AM EDT [facility] Hgb 8.1(L) 11.2 - 15.7 g/dL 01/14/2025 6:33 AM EDT [facility] Hct 27.1(L) 34.0 - 45.0 % 01/14/2025 6:33 AM EDT [facility] MCV 89.7 80.0 - 100.0 fL 01/14/2025 6:33 AM EDT [facility] MCH 26.8 26.0 - 34.0 pg 01/14/2025 6:33 AM EDT [facility] MCHC 29.9(L) 30.7 - 35.5 g/dL 01/14/2025 6:33 AM EDT [facility] RDW 15.9(H) <=14.9 % 01/14/2025 6:33 AM EDT [facility] Platelet 202 155 - 369 x10(3)/mcL 01/14/2025 6:33 AM EDT [facility] MPV 9.5 8.8 - 12.5 fL 01/14/2025 6:33 AM EDT [facility] Blood VENOUS BLOOD / Unknown Venipuncture / Unknown 01/14/2025 5:43 AM EDT 01/14/2025 6:25 AM EDT us Mathieu Belcher MD HEMATOLOGY ORDERABLES Elmira mott Result [facility] [address] [place] [address] * (ABNORMAL) BASIC METABOLIC PANEL (01/14/2025 5:43 AM EDT) Sodium 139 136 - 145 mmol/L 01/14/2025 6:54 AM EDT [facility] Potassium 4.4 3.5 - 5.0 mmol/L 01/14/2025 6:54 AM EDT [facility] Chloride 105 98 - 107 mmol/L 01/14/2025 6:54 AM EDT [facility] Total CO2 21(L) 22 - 29 mmol/L 01/14/2025 6:54 AM EDT [facility] Anion Gap 13 7 - 16 mmol/L 01/14/2025 6:54 AM EDT [facility] Calcium 8.2(L) 8.6 - 10.4 mg/dL 01/14/2025 6:54 AM EDT [facility] Glucose Lvl 79 70 - 99 mg/dL 01/14/2025 6:54 AM EDT [facility] BUN 44(H) 6 - 20 mg/dL 01/14/2025 6:54 AM EDT [facility] Creatinine 5.88(H) 0.51 - 1.30 mg/dL 01/14/2025 6:54 AM EDT [facility] eGFR (CKD-EPIcr 2020) 8(L) >=60 mL/min/1.7 3 m2 01/14/2025 6:54 AM EDT NEW [facility] Comment:Estimated GFR was ca lculated using the CKD-EPIcr (2020) equation refit without race. The equation is recommended by the [employer] - [place] [employer] Neph[employer] Task Force. Blood VENOUS BLOOD / Unknown Venipuncture / Unknown 01/14/2025 5:43 AM EDT 01/14/2025 6:26 AM EDT us Mathieu Belcher MD CHEMISTRY ORDERABLES Final Result [facility] [address] [place] [address] * ECG AND WAVEFORMS - TELEMETRY (01/13/2025 7:00 PM EDT) ECG INTERPRET NSR [facility] 01/13/2025 7:00 PM EDT Narrative [facility] - 01/13/2025 7:03 PM EDT ROUTINE/PAC/COMMUNICATIONS MANAGER UT 0.17 QRS 0.08 QT 0.37 See Clinical Report link for waveform capture us Unknown Provider POINT OF CARE CARDIOLOGY Final Result Performing Organization Address City/[facility]/ZIP Co de Phone Number [facility] [address] [place] [address] * ECG AND WAVEFORMS - TELEMETRY (01/13/2025 6:15 PM EDT) ECG INTERPRET Sinus Arrythmia [facility] Comment:SR/SA 01/13/2025 6:15 PM EDT Narrative [facility] - 01/13/2025 6:19 PM EDT NEW ADMIT/PAC'S/COMMUNICATIONS MANAGER UT 0.17 QRS 0.09 RR 0.73 QT 0.35 QTc 0.41 See Clinical Report link for waveform capture us Unknown Provider POINT OF CARE CARDIOLOGY Final Result Performing Organization Address [facility] Co de Phone Number [facility] [address] [place] [address] * CT LUMBAR SPINE WO CONTRAST (01/13/2025 5:14 PM EDT) Anatomical Region Laterality Modality L-spine Computed Tomogra phy 01/13/2025 5:14 PM EDT Impressions 01/13/2025 6:59 PM EDT 1. No acute lumbar spine fracture. 2. Mild multilevel lumbar spondylosis. 3. Thoracoabdominal aortic aneurysm. 4. Bilateral nonobstructing nephrolithiasis. 5. Colonic diverticulosis. 6. Tiny right pleural effusion and adjacent airspace disease. - Note: Radiology results need to be interpreted within a comprehensive clinical context. If you have questions about the radiology report, please contact the office of the ordering clinician. Narrative 01/13/2025 6:[address] LUMBAR SPINE WITHOUT CONTRAST, 01/13/2025 5:14 PM CLINICAL HISTORY: -back pain. COMPARISON: None. PROCEDURE COMMENTS: Multidetector CT scanning of the lumbar spine with multiplanar reformats per standard protocol. Dose 1 : CT DLP Total : 620.51 mGycm DLP Spiral Max : 614.18 mGycm Maximum CTDI Vol : 18 mGy FINDINGS: No acute spine fracture or traumatic malalignment. Paraspinous soft tissues within normal limits. Level by level analysis: L1-L2: Disc height is maintained. Central canal and foramina appear grossly patent. L2-L3: Upper L2 endplate body Schmorl node. Disc height is maintained. Central canal and foramina appear grossly patent. L3-L4: Circumferential disc bulge, bilateral ligamentum flavum thickening and facet hypertrophy contribute to mild canal and bilateral foraminal stenosis. L4-L5: Circumferential disc bulge, bilateral ligamentum flavum thickening and facet hypertrophy contribute to mild canal and bilateral foraminal stenosis. L5-S1: Disc height is maintained. Central canal and foramina appear grossly patent. Thoracoabdominal aorta and infrarenal abdominal aneurysmal dilation, measuring up to 4.3 cm in AP diameter with diffuse atherosclerotic calcifications. Colonic diverticulosis. Bilateral nonobstructing kidney stones greater on the right. Tiny right pleural effusion and adjacent airspace disease. Procedure Note Amado Mercado MD - 01/13/2025 CT LUMBAR SPINE WITHOUT CONTRAST, 01/13/2025 5:14 PM CLINICAL HISTORY: -back pain. COMPARISON: None. PROCEDURE COMMENTS: Multidetector CT scanning of the lumbar spine with multiplanar reformats per standard protocol. Dose 1 : CT DLP Total : 620.51 mGycm DLP Spiral Max : 614.18 mGycm Maximum CTDI Vol : 18 mGy FINDINGS: No acute spine fracture or traumatic malalignment. Paraspinous softtissues within normal limits. Level by level analysis: L1-L2: Disc height is maintained. Central canal and foramina appeargrossly patent. L2-L3: Upper L2 endplate body Schmorl node. Disc height is maintained.Central canal and foramina appear grossly patent. L3-L4: Circumferential disc bulge, bilateral ligamentum flavum thickeningand facet hypertrophy contribute to mild canal and bilateral foraminalstenosis. L4-L5: Circumferential disc bulge, bilateral ligamentum flavum thickeningand facet hypertrophy contribute to mild canal and bilateral foraminalstenosis. L5-S1: Disc height is maintained. Central canal and foramina appeargrossly patent. Thoracoabdominal aorta and infrarenal abdominal aneurysmal dilation,measuring up to 4.3 cm in AP diameter with diffuse atherosclerotic calcifications.Colonic diverticulosis. Bilateral nonobstructing kidney stones greater on theright. Tiny right pleural effusion and adjacent airspace disease. IMPRESSION: 1. No acute lumbar spine fracture. 2. Mild multilevel lumbar spondylosis. 3. Thoracoabdominal aortic aneurysm. 4. Bilateral nonobstructing nephrolithiasis. 5. Colonic diverticulosis. 6. Tiny right pleural effusion and adjacent airspace disease. - Note: Radiology results need to be interpreted within a comprehensiveclinical context. If you have questions about the radiology report, please contactthe office of the ordering clinician. us Mathieu Belcher MD IMG CT ORDERABLES Final Re sult * HEPATITIS B CORE AB TOTAL (01/13/2025 5:01 PM EDT) Hep B Core Total Non-Reacti ve Non-React mar 01/13/2025 9:05 PM EDT [facility] Comment:No antibodies to HBc detected. Does not exclude possibility of exposure to HBV. Blood VENOUS BLOOD / Unknown Venipuncture / Unknown 01/13/2025 5:01 PM EDT 01/13/2025 5:38 PM EDT Narrative [facility] - 01/13/2025 9:05 PM EDT Test performed using [employer] electrochemiluminescence immunassay (ECLIA). us Mike Carter MD IMMUNOLOGY ORDERABLES Final Res ult [facility] [address] [facility] , [place] [address] * HCV ANTIBODY SCREEN W/ REFLEX (01/13/2025 5:01 PM EDT) Hep C Ab Non-Reacti ve Non-React mar 01/13/2025 8:59 PM EDT [facility] [employer] [facility] Comment:No antibodies to HCV detected. Does not exclude possibility of exposure to HCV. Blood VENOUS BLOOD / Unknown Venipuncture / Unknown 01/13/2025 5:01 PM EDT 01/13/2025 5:38 PM EDT Narrative [facility] - 01/13/2025 8:59 PM EDT Test performed using [employer] electrochemiluminescence immunassay (ECLIA). Mike Carter MD HEMATOLOGY ORDERABLES Final Res ult Performing Organization Address [facility] Co de Phone Number [facility] [address] , [place] [address] * HEPATITIS B SURFACE ANTIGEN (01/13/2025 5:01 PM EDT) Hep Bs Ag Non-Reacti ve Non-React mar 01/13/2025 9:05 PM EDT [facility] [employer] [facility] Comment:HBsAg not detected. Does not exclude possibility of exposure to HBV. Blood VENOUS BLOOD / Unknown Venipuncture / Unknown 01/13/2025 5:01 PM EDT 01/13/2025 5:38 PM EDT Narrative [facility] - 01/13/2025 9:05 PM EDT Test performed using [employer] electrochemiluminescence immunassay (ECLIA). Mike Carter MD CHEMISTRY ORDERABLES Final Resu lt Performing Organization Address [facility] Co de Phone Number [facility] [address] [facility] , [place] [address] * HEPATITIS B SURFACE ANTIBODY (01/13/2025 5:01 PM EDT) Hep Bs Ab 238.00 mIU/mL 01/13/2025 9:05 PM EDT [facility] [employer] [facility] Comment: < 10 mIU/mL - Non-reactive (Result not consistent with protective immunity.) >= 10 mIU/mL - Reactive (Result consistent with protective immunity.) Blood VENOUS BLOOD / Unknown Venipuncture / Unknown 01/13/2025 5:01 PM EDT 01/13/2025 5:38 PM EDT Narrative [facility] [employer] - 01/13/2025 9:05 PM EDT Test performed using [employer] electrochemiluminescence immunassay (ECLIA). us Mike Carter MD IMMUNOLOGY ORDERABLES Final Res ult [facility] [address] [facility] , [place] [address] * XR CHEST PA AND LATERAL (01/13/2025 4:22 PM EDT) Anatomical Region Laterality Modality Chest Radiographic Carissa ging 01/13/2025 4:22 PM EDT Impressions 01/13/2025 4:28 PM EDT Question mild pulmonary edema with likely small effusions. - Note: Radiology results need to be interpreted within a comprehensive clinical context. If you have questions about the radiology report, please contact the office of the ordering clinician. Narrative 01/13/2025 4:28 PM EDT PA AND LATERAL CHEST X-RAY, 01/13/2025 4:22 PM CLINICAL HISTORY: -missed dialysis COMPARISON: 2020 PROCEDURE COMMENTS: Frontal and lateral views of the chest. FINDINGS: Suspect mild irregular perihilar opacity. Small pleural effusion and basilar opacity. Heart size is stable with median sternotomy. Procedure Note Vaughn Ge MD - 01/13/2025 PA AND LATERAL CHEST X-RAY, 01/13/2025 4:22 PM CLINICAL HISTORY: -missed dialysis COMPARISON: 2020 PROCEDURE COMMENTS: Frontal and lateral views of the chest. FINDINGS: Suspect mild irregular perihilar opacity. Small pleural effusion andbasilar opacity. Heart size is stable with median sternotomy. IMPRESSION: Question mild pulmonary edema with likely small effusions. - Note: Radiology results need to be interpreted within a comprehensiveclinical context. If you have questions about the radiology report, please contactthe office of the ordering clinician. us Dennis Gracia MD IMG DIAGNOSTIC IMAGING ORDERA BLES Final Result * XR LUMBAR SPINE AP AND LATERAL (01/13/2025 4:22 PM EDT) Anatomical Region Laterality Modality L-spine Radiographic Carissa ging 01/13/2025 4:22 PM EDT Impressions 01/13/2025 4:27 PM EDT No acute abnormality of the lumbar spine. - Note: Radiology results need to be interpreted within a comprehensive clinical context. If you have questions about the radiology report, please contact the office of the ordering clinician. Narrative 01/13/2025 4:27 PM EDT AP AND LATERAL LUMBAR SPINE, 01/13/2025 4:22 PM CLINICAL HISTORY: -low back pain COMPARISON: None. PROCEDURE COMMENTS: Minimum of 3 views lumbar spine per protocol. FINDINGS: No visible acute vertebral fracture or traumatic malalignment. Mild multilevel degenerative changes noted. Procedure Note Mike Rodrigez MD - 01/13/2025 AP AND LATERAL LUMBAR SPINE, 01/13/2025 4:22 PM CLINICAL HISTORY: -low back pain COMPARISON: None. PROCEDURE COMMENTS: Minimum of 3 views lumbar spine per protocol. FINDINGS: No visible acute vertebral fracture or traumatic malalignment. Mild multilevel degenerative changes noted. IMPRESSION: No acute abnormality of the lumbar spine. - Note: Radiology results need to be interpreted within a comprehensiveclinical context. If you have questions about the radiology report, please contactthe office of the ordering clinician. Dennis Gracia MD IM DIAGNOSTIC IMAGING ORDERA BLES Final Result * (ABNORMAL) BLOOD GAS, VENOUS (01/13/2025 2:03 PM EDT) pH Venous 7.40 7.32 - 7.42 pH 01/13/2025 2:10 PM EDT [facility] pCO2 Venous 37(L) 41 - 51 mmHg 01/13/2025 2:10 PM EDT [facility] pO2 Venous 143(H) 25 - 40 mmHg 01/13/2025 2:10 PM EDT [facility] Comment:Interpret with cauti on. Not recommended to evaluate patient's oxygenation status. Base Excess Gilson -2.0 mmol/L 2:10 PM EDT [facility] Hco3 Venous 22.5(L) 24.0 - 28.0 mmol/L 01/13/2025 2:10 PM EDT [facility] CO2 Total [place] 21(L) 25 - 29 mmol/L 01/13/2025 2:10 PM EDT [facility] O2 Sat. Venous 99.9(H) 40.0 - 70.0 % 01/13/2025 2:10 PM EDT [facility] Inspired O2 2L 01/13/2025 2:10 PM EDT [facility] Blood VENOUS BLOOD / Unknown Venipuncture / Unknown 01/13/2025 2:03 PM EDT 01/13/2025 2:06 PM EDT us Dennis Gracia MD CHEMISTRY ORDERABLES Final Re sult [facility] [address] [place] [address] * (ABNORMAL) COMPREHENSIVE METABOLIC PANEL (01/13/2025 1:35 PM EDT) Sodium 136 136 - 145 mmol/L 01/13/2025 1:56 PM EDT [facility] Potassium 4.4 3.5 - 5.0 mmol/L 01/13/2025 1:56 PM EDT [facility] Chloride 102 98 - 107 mmol/L 01/13/2025 1:56 PM EDT [facility] Total CO2 21(L) 22 - 29 mmol/L 01/13/2025 1:56 PM EDT [facility] Anion Gap 13 7 - 16 mmol/L 01/13/2025 1:56 PM EDT [facility] Calcium 8.7 8.6 - 10.4 mg/dL 01/13/2025 1:56 PM EDT [facility] Glucose Lvl 79 70 - 99 mg/dL 01/13/2025 1:56 PM EDT [facility] BUN 43(H) 6 - 20 mg/dL 01/13/2025 1:56 PM EDT [facility] Creatinine 5.65(H) 0.51 - 1.30 mg/dL 01/13/2025 1:56 PM EDT [facility] Albumin 3.2(L) 3.5 - 5.2 gm/dL 01/13/2025 1:56 PM EDT [facility] Total Protein 7.0 6.4 - 8.3 gm/dL 01/13/2025 1:56 PM EDT [facility] Bili Total 0.3 0.2 - 1.3 mg/dL 01/13/2025 1:56 PM EDT [facility] ALT 8 <=41 U/L 01/13/2025 1:56 PM EDT [facility] AST 14 <=40 U/L 01/13/2025 1:56 PM EDT [facility] Alk Phos 99 36 - 123 U/L 01/13/2025 1:56 PM EDT [facility] eGFR (CKD-EPIcr 2020) 8(L) >=60 mL/min/1.7 3 m2 01/13/2025 1:56 PM EDT [facility] Comment:Estimated GFR was ca lculated using the CKD-EPIcr (2020) equation refit without race. The equation is recommended by the [employer] Kid[employer] - [place] [employer] Neph[employer] Task Force. Blood VENOUS BLOOD / Unknown Venipuncture / Unknown 01/13/2025 1:35 PM EDT 01/13/2025 1:38 PM EDT us Dennis Gracia MD CHEMISTRY ORDERABLES Final Re sult [facility] [address] [place] [address] * (ABNORMAL) CBC WITH DIFF (01/13/2025 1:35 PM EDT) WBC 8.2 3.7 - 10.3 x10(3)/mcL 01/13/2025 1:41 PM EDT [facility] RBC 3.28(L) 3.90 - 5.20 x10(6)/mcL 01/13/2025 1:41 PM EDT [facility] Hgb 8.8(L) 11.2 - 15.7 g/dL 01/13/2025 1:41 PM EDT [facility] Hct 28.0(L) 34.0 - 45.0 % 01/13/2025 1:41 PM EDT [facility] MCV 85.4 80.0 - 100.0 fL 01/13/2025 1:41 PM EDT [facility] MCH 26.8 26.0 - 34.0 pg 01/13/2025 1:41 PM EDT [facility] MCHC 31.4 30.7 - 35.5 g/dL 01/13/2025 1:41 PM EDT [facility] RDW 15.8(H) <=14.9 % 01/13/2025 1:41 PM EDT [facility] Platelet 208 155 - 369 x10(3)/mcL 01/13/2025 1:41 PM EDT [facility] MPV 8.7(L) 8.8 - 12.5 fL 01/13/2025 1:41 PM EDT [facility] Neut Percent 81.2 % 01/13/2025 1:41 PM EDT [facility] Comment:Neutrophils equals s egs plus bands Imm Gran% 0.5 % 01/13/2025 1:41 PM EDT [facility] Comment:Automated count of m etamyelocytes, myelocytes and promyelocytes. Lymph Percent 8.7 % 01/13/2025 1:41 PM EDT [facility] [place] Percent 7.3 % 01/13/2025 1:41 PM EDT [facility] Eos Percent 1.3 % 01/13/2025 1:41 PM EDT [facility] Baso Percent 1.0 % 01/13/2025 1:41 PM EDT [facility] Neut # 6.7(H) 1.6 - 6.1 x10(3)/mcL 01/13/2025 1:41 PM EDT [facility] Comment:Neutrophils equals s egs plus bands IMMGRAN# 0.0 0.0 - 0.1 x10(3)/mcL 01/13/2025 1:41 PM EDT [facility] Comment:Automated count of m etamyelocytes, myelocytes and promyelocytes. An absolute IG <0.1 is reported as 0.0. Lymph # 0.7(L) 1.2 - 3.9 x10(3)/mcL 01/13/2025 1:41 PM EDT [facility] [place] # 0.6 0.3 - 0.9 x10(3)/[facility] 01/13/2025 1:41 PM EDT [facility] Eos# 0.1 0.0 - 0.5 x10(3)/[facility] 01/13/2025 1:41 PM EDT [facility] Baso # 0.1 0.0 - 0.1 x10(3)/[facility] 01/13/2025 1:41 PM EDT [facility] Blood VENOUS BLOOD / Unknown Venipuncture / Unknown 01/13/2025 1:35 PM EDT 01/13/2025 1:38 PM EDT us Dennis Gracia MD HEMATOLOGY ORDERABLES Final R esult [address] [address] * EK EKG 12 LEAD (01/13/2025 1:30 PM EDT) Anatomical Region Laterality Modality Electrocardiogra phy 01/13/2025 1:35 PM EDT Impressions 01/13/2025 3:47 PM EDT [facility] Test Date: 2025-01-13 Pat Name: DIVYA BROWN Department: DEPID Room: 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 [facility] Test Date: 2025-01-13 Pat Name: DIVYA BROWN Department: DEPID Room: 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1965 Requested By: DENNIS Fierro Order Number: [id number] Reading MD: Christopher Curiel MD Measurements Intervals [place] Rate: 78 P: 110 UT: 166 QRS: -8 QRSD: 85 T: 108 QT: 373 QTc: 425 Interpretive Statements SINUS RHYTHM POSSIBLE ANTERIOR MYOCARDIAL INFARCTION PROBABLY OLD Electronically Signed On 01-13-2025 15:47:10 EDT by Christopher Curiel MD us Dennis Gracia MD IMG ECG ORDERABLES Final Resu lt documented in this encounter Visit Diagnoses Diagnosis Acute on chronic HFrEF (heart failure with reduced ejection fraction) ([facility])- Primary Bilateral lower extremity edema Edema Hypervolemia, unspecified hypervolemia type Acute midline low back pain without sciatica End stage renal disease on dialysis (HCC) End stage renal disease Bilateral lower extremity edema Edema Anemia due to stage 4 chronic kidney disease (HCC) CKD (chronic kidney disease) stage 4, GFR 15-29 ml/min ([facility]) Chronic kidney disease, Stage IV (severe) Acute lumbar back pain Lumbago Chronic respiratory failure with hypoxia ([facility]) Chronic respiratory failure Acute pulmonary edema (HCC) Acute edema of lung, unspecified Thoracoabdominal aortic aneurysm (TAAA) without rupture COPD (chronic obstructive pulmonary disease) ([facility]) Chronic airway obstruction, not elsewhere classified documented in this encounter Admitting Diagnoses Diagnosis Bilateral lower extremity edema Edema Acute on chronic HFrEF (heart failure with reduced ejection fraction) ([facility]) documented in this encounter Administered Medications Inactive Administered Medications - up to 1 most recent administrations Medication Order MAR Action Action Date Dose Rate Site acetaminophen (TYLENOL) tablet 650 mg 650 mg, Oral, EVERY 4 HOURS PRN, Starting on Sat01/13/25 at 1616, Until Sat01/19/25 at 1822, Pain, Fever, Maximum adult dose of acetaminophen is 4000 mg from all sources in 24 hours. albuterol (PROVENTIL HFA;VENTOLIN HFA) inhaler 2 Puff 2 Puff, Inhalation, PRN, Starting on Sat01/15/25 at 0913, Until Sat01/19/25 at 1822, Wheezing, Shortness of Breath, Waste Sort Code = BLACK [employer] Waste Container albuterol (PROVENTIL) nebulizer solution 2.5 mg 2.5 mg, Nebulization, EVERY 4 HOURS PRN (RESP CARE), Starting on Sat01/13/25 at 2334, Until Sat01/15/25 at 0914, Shortness of Breath Given 01/13/2025 11:38 PM EDT 2.5 mg albuterol (PROVENTIL) nebulizer solution 2.5 mg 2.5 mg, Nebulization, PRN, Starting on Sat01/15/25 at 0913, Until Sat01/19/25 at 1822, Wheezing, Shortness of Breath, Bronchospasm aluminum & magnesium hydroxide-simethicon e 200-200-20 mg/5 mL suspension 30 mL 30 mL, Oral, EVERY 4 HOURS PRN, Starting on Sat01/13/25 at 1615, Until Sat01/19/25 at 1822, Indigestion, For blood tinged n/g secrections or indigestion, Shake well. aspirin chewable tablet 81 mg 81 mg, Oral, DAILY, First dose on Sat01/14/25 at 1930, Until Discontinued Given 01/19/2025 10:17 AM EDT 81 mg atorvastatin (LIPITOR) tablet 40 mg 40 mg, Oral, DAILY, First dose on Sat01/14/25 at 1930, Until Discontinued Given 01/19/2025 10:17 AM EDT 40 mg b eykjhdq-R-ycuzd acid (NEPHROCAP) 1 mg capsule 1 Capsule 1 Capsule, Oral, DAILY, First dose on Sat01/14/25 at 1930, Until Discontinued Given 01/19/2025 10:16 AM EDT 1 Capsule bumetanide (BUMEX) injection 4 mg 4 mg, Intravenous, TWICE DAILY DIURETIC, First dose on Sat01/13/25 at 1700, Until Discontinued Given 01/17/2025 5:12 PM EDT 4 mg bumetanide (BUMEX) tablet 4 mg 4 mg, Oral, TWICE DAILY DIURETIC, First dose on Sat01/19/25 at 1100, Until Discontinued Given 01/19/2025 10:16 AM EDT 4 mg calcium acetate(phosphat bind) (PHOSLO) capsule 667 mg 667 mg, Oral, 3 TIMES DAILY WITH MEALS, First dose on Sat01/14/25 at 1930, Until Discontinued Given 01/19/2025 10:16 AM EDT 667 mg carvediloL (COREG) tablet 12.5 mg 12.5 mg, Oral, 2 TIMES DAILY WITH MEALS, First dose on Sat01/13/25 at 2345, Until Discontinued, Take with a meal. Given 01/19/2025 10:21 AM EDT 12.5 mg epoetin hunter (EPOGEN;PROCRIT) injection 2,000 Units 2,000 Units, Intravenous, ONCE IN DIALYSIS, 1 dose, On Sat01/15/25 at 1215, * SEND TO DIALYSIS *, Dialysis, Dx: 1. End stage renal disease on dialysis (HCC)Indications:End stage renal disease on dialysis (HCC) Given 01/15/2025 3:29 PM EDT 2,000 Units epoetin hunter (EPOGEN;PROCRIT) injection 2,000 Units 2,000 Units, Intravenous, ONCE IN DIALYSIS, 1 dose, On Sat01/18/25 at 0900, * SEND TO DIALYSIS *, Dialysis, Dx: 1. End stage renal disease on dialysis (HCC)Indications:End stage renal disease on dialysis (HCC) Given 01/18/2025 8:48 AM EDT 2,000 Units ergocalciferol (DRISDOL) capsule 50,000 Units 50,000 Units, Oral, WEEKLY, First dose on Sat01/14/25 at 1930, Until Discontinued Given 01/14/2025 6:37 PM EDT 50,000 Units famotidine (PEPCID) tablet 20 mg 20 mg, Oral, NIGHTLY, 284 doses, First dose on Sat01/14/25 at 2100, Last dose on 10/24/25 at 2100 Given 01/18/2025 9:04 PM EDT 20 mg ferrous sulfate tablet 325 mg 325 mg, Oral, DAILY, First dose on Sat01/14/25 at 1930, Until Discontinued, Each tab provides 65 mg elemental iron Take with food other than cereals, dietary fiber, tea, coffee, eggs, or milk. Do not crush. Given 01/19/2025 10:16 AM EDT 325 mg heparin (porcine) bolus infusion 2,000 Units 2,000 Units, Intravenous, ONCE IN DIALYSIS, 1 dose, On Zoë 01/14/25 at 1000, Heparin Bolus Order * SEND TO DIALYSIS *, Dialysis, Dx: 1. End stage renal disease on dialysis (HCC)Indications:End stage renal disease on dialysis (HCC) Given 01/14/2025 9:00 AM EDT 2,000 Units heparin (porcine) bolus infusion 2,000 Units 2,000 Units, Intravenous, ONCE IN DIALYSIS, 1 dose, On Sat01/15/25 at 1215, Heparin Bolus Order * SEND TO DIALYSIS *, Dialysis, Dx: 1. End stage renal disease on dialysis (HCC)Indications:End stage renal disease on dialysis (HCC) Given 01/15/2025 1:03 PM EDT 2,000 Units heparin (porcine) bolus infusion 2,000 Units 2,000 Units, Intravenous, ONCE IN DIALYSIS, 1 dose, On Sat01/18/25 at 0900, Heparin Bolus Order * SEND TO DIALYSIS *, Dialysis, Dx: 1. End stage renal disease on dialysis (HCC)Indications:End stage renal disease on dialysis (HCC) Given 01/18/2025 8:47 AM EDT 2,000 Units heparin (porcine) injection 5,000 Units 5,000 Units, Subcutaneous, EVERY 8 HOURS SCHEDULED (3 times per day), First dose on Sat01/13/25 at 1630, Until Discontinued, Hold Heparin for platelet count less than 100,000 Given 01/19/2025 5:06 AM EDT 5,000 Units Abdominal Tissue heparin (porcine) maintenance infusion 500 Units/hr (0.5 mL/hr), Intravenous, CONTINUOUS IN DIALYSIS, Starting on Sat01/14/25 at 1000, Until Sat01/14/25 at 1150, Heparin Maintenance Order * SEND TO DIALYSIS * Please discontinue medication 30 minutes prior to end of treatment, Dialysis, Dx: 1. End stage renal disease on dialysis (HCC)Indications:End stage renal disease on dialysis (HCC) Given 01/14/2025 9:06 AM EDT 500 Units/hr 0.5 mL/hr heparin (porcine) maintenance infusion 500 Units/hr (0.5 mL/hr), Intravenous, CONTINUOUS IN DIALYSIS, Starting on Sat01/15/25 at 1215, Until Sat01/15/25 at 1747, Heparin Maintenance Order * SEND TO DIALYSIS * Please discontinue medication 30 minutes prior to end of treatment, Dialysis, Dx: 1. End stage renal disease on dialysis (HCC)Indications:End stage renal disease on dialysis (HCC) Given 01/15/2025 1:11 PM EDT 500 Units/hr 0.5 mL/hr heparin (porcine) maintenance infusion 500 Units/hr (0.5 mL/hr), Intravenous, CONTINUOUS IN DIALYSIS, Starting on Sat01/18/25 at 0900, Until Sat01/18/25 at 1058, Heparin Maintenance Order * SEND TO DIALYSIS * Please discontinue medication 30 minutes prior to end of treatment, Dialysis, Dx: 1. End stage renal disease on dialysis (HCC)Indications:End stage renal disease on dialysis (HCC) Given 01/18/2025 8:47 AM EDT 500 Units/hr 0.5 mL/hr hydrALAZINE (APRESOLINE) injection 20 mg 20 mg, Intravenous, EVERY 4 HOURS PRN, Starting on Sat01/13/25 at 1855, Until Sat01/19/25 at 1822, High Blood Pressure, For SBP greater than 160, Blood Pressure options: SBP greater than (>) 160 Given 01/13/2025 7:01 PM EDT 20 mg hydrALAZINE (APRESOLINE) tablet 100 mg 100 mg, Oral, EVERY 8 HOURS SCHEDULED (3 times per day), First dose on Sat01/13/25 at 2345, Until Discontinued Given 01/16/2025 1:08 PM EDT 100 mg isosorbide mononitrate (IMDUR) CR tablet 60 mg 60 mg, Oral, EVERY MORNING, First dose on Sat01/15/25 at 0900, Until Discontinued Given 01/16/2025 8:47 AM EDT 60 mg lidocaine (ASPERCREME) 4 % patch 3 Patch 3 Patch, Transdermal, DAILY, First dose on Sat01/17/25 at 1415, Until Discontinued, Remove patch after 12 hours, Administer over 12 Hours, Application site: Lower back Patch Applied 01/18/2025 7:49 AM EDT 3 Patches Back melatonin tablet 5-10 mg 5-10 mg, Oral, NIGHTLY PRN, Starting on Sat01/13/25 at 1615, Until Sat01/19/25 at 1822, Sleep, Begin with lowest dose unless otherwise directed. Reassess patient in 30 minutes. If necessary, remainder of dose may be given to patient. Given 01/16/2025 9:14 PM EDT 10 mg metoclopramide HCl (REGLAN) injection 5 mg 5 mg, Intravenous, EVERY 4 HOURS PRN, Starting on Sat01/14/25 at 0819, Until Sat01/19/25 at 1822, Nausea, For nausea unrelieved by ondansetron (ZOFRAN) morphine injection 2 mg 2 mg, Intravenous, EVERY 4 HOURS PRN, Starting on Sat01/13/25 at 1615, Until Sat01/19/25 at 1822, Pain Unrelieved by Oral Opioid Therapy, Begin with lowest dose unless otherwise directed. Reassess pain in 15 minutes. If pain unrelieved, remainder of dose may be given to patient. Given 01/17/2025 12:04 PM EDT 2 mg morphine injection 3-4 mg 3-4 mg, Intravenous, EVERY 4 HOURS PRN, Starting on Sat01/13/25 at 1615, Until Sat01/19/25 at 1822, Pain Unrelieved by Oral Opioid Therapy, Begin with lowest dose unless otherwise directed. Reassess pain in 15 minutes. If pain unrelieved, remainder of dose may be given to patient. ondansetron (ZOFRAN) injection 4 mg 4 mg, Intravenous, EVERY 4 HOURS PRN, Starting on Sat01/14/25 at 0819, Until Sat01/19/25 at 1822, Nausea Given 01/17/2025 9:28 AM EDT 4 mg ondansetron (ZOFRAN) tablet 4 mg 4 mg, Oral, EVERY 4 HOURS PRN, Starting on Sat01/14/25 at 0819, Until Sat01/19/25 at 1822, Nausea Given 01/19/2025 10:16 AM EDT 4 mg oxyCODONE-acetaminop hen (PERCOCET) 5-325 mg per tablet 1-2 Tablet 1-2 Tablet, Oral, EVERY 4 HOURS PRN, Starting on Sat01/13/25 at 1615, Until Sat01/19/25 at 1822, Pain Unrelieved by Oral Non-Opioid Therapy, Begin with lowest dose unless otherwise directed. Reassess pain in one hour. If pain unrelieved, remainder of dose may be given to patient. *Maximum adult dose of acetaminophen is 4000 mg from all sources in 24 hours.* Given 01/19/2025 10:16 AM EDT 2 Tablets polyethylene glycol (GLYCOLAX, MIRALAX) packet 17 g 17 g, Oral, 2 TIMES DAILY PRN, Starting on Sat01/13/25 at 1615, Until Sat01/19/25 at 1822, Constipation, If multiple oral PRN laxatives/stool softeners ordered, may give per patient preference. senna (SENOKOT) tablet 1-2 Tablet 1-2 Tablet, Oral, DAILY PRN, Starting on Sat01/13/25 at 1615, Until Sat01/19/25 at 1822, Constipation, Start with lowest dose and may give additional if needed. If multiple oral PRN laxatives/stool softeners ordered, may give per patient preference. sertraline (ZOLOFT) tablet 50 mg 50 mg, Oral, DAILY, First dose on Sat01/14/25 at 1930, Until Discontinued Given 01/19/2025 10:16 AM EDT 50 mg traZODone (DESYREL) tablet 50 mg 50 mg, Oral, NIGHTLY, 105 doses, First dose on Sat01/13/25 at 2345, Last dose on Sat04/27/25 at 2100, Take shortly after a meal or light snack. Given 01/18/2025 9:04 PM EDT 50 mg documented in this encounter Active and Recently Administered Medications Times are shown in EDT. Scheduled Medication Order 01/17/2025 01/18/2025 01/19/2025 aspirin chewable tablet 81 mg 81 mg, Oral, DAILY, First dose on Zoë 01/14/25 at 1930, Until Discontinued 0838 (Given - Provider: Yvonne Gonzalez RN) 0900 (Hold - Provider: Dee Arango RN - Reason: Patient not available - Comment: patient going to requests to take them upon her return)1242 (Given - Provider: Dee Arango RN) 1017 (Given - Provider: Sol Mckeon RN) atorvastatin (LIPITOR) tablet 40 mg 40 mg, Oral, DAILY, First dose on Sat01/14/25 at 1930, Until Discontinued 0837 (Given - Provider: Yvonne Gonzalez RN) 0900 (Hold - Provider: Dee Arango RN - Reason: Patient not available - Comment: patient going to hd requests to take them upon her return)1242 (Given - Provider: Dee Arango RN) 1017 (Given - Provider: Sol Mckeon RN) b cbxirft-O-myzjg acid (NEPHROCAP) 1 mg capsule 1 Capsule 1 Capsule, Oral, DAILY, First dose on Sat01/14/25 at 1930, Until Discontinued 0837 (Given - Provider: Yvonne Gonzalez RN) 0900 (Hold - Provider: Dee Arango RN - Reason: Patient not available - Comment: patient going to hd requests to take them upon her return)1241 (Given - Provider: Dee Arango RN)1244 (Given - Provider: Dee Arango RN) 1016 (Given - Provider: Sol Mckeon RN) bumetanide (BUMEX) injection 4 mg (CANCELED) 4 mg, Intravenous, TWICE DAILY DIURETIC, First dose on Sat01/13/25 at 1700, Until Discontinued 0838 (Given - Provider: Yvonne Gonzalez RN)1712 (Given - Provider: Yvonne Gonzalez RN) 0748 (Not Given - Provider: Dee Arango RN - Reason: Patient Declined)1700 (Not Given - Provider: Dee Arango RN - Reason: Patient Declined) 0900 (Not Given - Provider: Sol Mckeon RN - Reason: Discontinued by Provider) bumetanide (BUMEX) tablet 4 mg 4 mg, Oral, TWICE DAILY DIURETIC, First dose on Sat01/19/25 at 1100, Until Discontinued 1016 (Given - Provider: Sol Mckeon RN) calcium acetate(phosphat bind) (PHOSLO) capsule 667 mg 667 mg, Oral, 3 TIMES DAILY WITH MEALS, First dose on Sat01/14/25 at 1930, Until Discontinued 0838 (Given - Provider: Yvonne Gonzalez RN)1201 (Given - Provider: Yvonne Gonzalez RN)1712 (Given - Provider: Yvonne Gonzalez RN) 0800 (Hold - Provider: Dee Arango RN - Reason: Patient not available - Comment: patient going to hd requesting to take medications upon her return)1242 (Given - Provider: Dee Arango RN)1711 (Given - Provider: Dee Arango RN) 1016 (Given - Provider: Sol Mckeon RN)1200 (Not Given - Provider: Sol Mckeon RN - Reason: Patient Declined - Comment: not eating lunch) carvediloL (COREG) tablet 12.5 mg 12.5 mg, Oral, 2 TIMES DAILY WITH MEALS, First dose on Sat01/13/25 at 2345, Until Discontinued, Take with a meal. 0838 (Given - Provider: Yvonne Gonzalez RN)1712 (Given - Provider: Yvonne Gonzalez RN) 0800 (Hold - Provider: Dee Arango RN - Reason: Patient not available - Comment: patient going to hd requesting to take medications upon her return)1242 (Given - Provider: Dee Arango RN)1711 (Given - Provider: Dee Arango RN) 1021 (Given - Provider: Sol Mckeon RN) epoetin hunter (EPOGEN;PROCRIT) injection 2,000 Units (COMPLETED) 2,000 Units, Intravenous, ONCE IN DIALYSIS, 1 dose, On Sat01/18/25 at 0900, * SEND TO DIALYSIS *, Dialysis, Dx: 1. End stage renal disease on dialysis (HCC) 0848 (Given - Provider: Padmaja Baez RN)0900 (Hold - Provider: Dee Arango RN - Reason: Patient not available - Comment: patient going to hd requests to take them upon her return) ergocalciferol (DRISDOL) capsule 50,000 Units 50,000 Units, Oral, WEEKLY, First dose on Sat01/14/25 at 1930, Until Discontinued famotidine (PEPCID) tablet 20 mg 20 mg, Oral, NIGHTLY, 284 doses, First dose on Sat01/14/25 at 2100, Last dose on Sat10/24/25 at 2100 2115 (Given - Provider: Logan Chaves, RN) 2103 (Given - Provider: Logan Chaves, RN) ferrous sulfate tablet 325 mg 325 mg, Oral, DAILY, First dose on Sat01/14/25 at 1930, Until Discontinued, Each tab provides 65 mg elemental iron Take with food other than cereals, dietary fiber, tea, coffee, eggs, or milk. Do not crush. 0838 (Given - Provider: Yvonne Gonzalez RN) 0900 (Hold - Provider: Dee Arango RN - Reason: Patient not available - Comment: patient going to hd requests to take them upon her return)1242 (Given - Provider: Dee Arango, OLVIN) 1016 (Given - Provider: Sol Mckeon RN) heparin (porcine) bolus infusion 2,000 Units (COMPLETED) 2,000 Units, Intravenous, ONCE IN DIALYSIS, 1 dose, On Sat01/18/25 at 0900, Heparin Bolus Order * SEND TO DIALYSIS *, Dialysis, Dx: 1. End stage renal disease on dialysis (HCC) 0847 (Given - Provider: Padmaja Baez RN)0900 (Hold - Provider: Dee Arango RN - Reason: Patient not available - Comment: patient going to hd requests to take them upon her return) heparin (porcine) injection 5,000 Units 5,000 Units, Subcutaneous, EVERY 8 HOURS SCHEDULED (3 times per day), First dose on Sat01/13/25 at 1630, Until Discontinued, Hold Heparin for platelet count less than 100,000 0600 (Not Given - Provider: Karen Dolan RN - Reason: Patient Declined)1310 (Given - Provider: Yvonne Gonzalez RN)211 (Given - Provider: Logan Chaves, RN) 0521 (Given - Provider: Logan Chaves, OLVIN)1400 (Not Given - Provider: Dee Arango RN - Reason: Patient Declined)2103 (Given - Provider: Logan Chaves, RN) 0506 (Given - Provider: Logan Chaves, RN)1400 (Due) lidocaine (ASPERCREME) 4 % patch 3 Patch 3 Patch, Transdermal, DAILY, First dose on Sat01/17/25 at 1415, Until Discontinued, Remove patch after 12 hours, Administer over 12 Hours, Application site: Lower back 1310 (Patch Applied - Provider: Yvonne Gonzalez RN) 0110 (Patch Removed - Provider: Logan Chaves, RN)0749 (Patch Applied - Provider: Dee Arango, OLVIN)1949 (Patch Removed - Provider: Logan Chaves RN) 0900 (Not Given - Provider: Sol Mckeon, OLVIN - Reason: Patient Declined) sertraline (ZOLOFT) tablet 50 mg 50 mg, Oral, DAILY, First dose on Zoë 01/14/25 at 1930, Until Discontinued 0837 (Given - Provider: Yvonne Gonzalez RN) 0900 (Hold - Provider: Dee Arango RN - Reason: Patient not available - Comment: patient going to hd requests to take them upon her return)1242 (Given - Provider: Dee Arango, OLVIN) 1016 (Given - Provider: Sol Mckeon, OLVIN) traZODone (DESYREL) tablet 50 mg 50 mg, Oral, NIGHTLY, 105 doses, First dose on Sat01/13/25 at 2345, Last dose on Sat04/27/25 at 2100, Take shortly after a meal or light snack. 2114 (Given - Provider: Logan Chaves, OLVIN) 2103 (Given - Provider: Logan Chaves, OLVIN) Continuous Medication Order 01/17/2025 01/18/2025 01/19/2025 heparin (porcine) maintenance infusion (CANCELED) 500 Units/hr (0.5 mL/hr), Intravenous, CONTINUOUS IN DIALYSIS, Starting on Sat01/18/25 at 0900, Until Sat01/18/25 at 1058, Heparin Maintenance Order * SEND TO DIALYSIS * Please discontinue medication 30 minutes prior to end of treatment, Dialysis, Dx: 1. End stage renal disease on dialysis (HCC) 0847 (Given - Provider: Jose Mayes, OLVIN) PRN Medication Order 01/17/2025 01/18/2025 01/19/2025 acetaminophen (TYLENOL) tablet 650 mg 650 mg, Oral, EVERY 4 HOURS PRN, Starting on Sat01/13/25 at 1616, Until Sat01/19/25 at 1822, Pain, Fever, Maximum adult dose of acetaminophen is 4000 mg from all sources in 24 hours. albuterol (PROVENTIL HFA;VENTOLIN HFA) inhaler 2 Puff(Linked Group 1) 2 Puff, Inhalation, PRN, Starting on Sat01/15/25 at 0913, Until Sat01/19/25 at 1822, Wheezing, Shortness of Breath, Waste Sort Code = BLACK [employer] Hazardous Waste Container albuterol (PROVENTIL) nebulizer solution 2.5 mg(Linked Group 1) 2.5 mg, Nebulization, PRN, Starting on Sat01/15/25 at 0913, Until Sat01/19/25 at 1822, Wheezing, Shortness of Breath, Bronchospasm aluminum & magnesium hydroxide-simethicone 200-200-20 mg/5 mL suspension 30 mL 30 mL, Oral, EVERY 4 HOURS PRN, Starting on Sat01/13/25 at 1615, Until Sat01/19/25 at 1822, Indigestion, For blood tinged n/g secrections or indigestion, Shake well. hydrALAZINE (APRESOLINE) injection 20 mg 20 mg, Intravenous, EVERY 4 HOURS PRN, Starting on Sat01/13/25 at 1855, Until Sat01/19/25 at 1822, High Blood Pressure, For SBP greater than 160, Blood Pressure options: SBP greater than (>) 160 melatonin tablet 5-10 mg 5-10 mg, Oral, NIGHTLY PRN, Starting on Sat01/13/25 at 1615, Until Sat01/19/25 at 1822, Sleep, Begin with lowest dose unless otherwise directed. Reassess patient in 30 minutes. If necessary, remainder of dose may be given to patient. metoclopramide HCl (REGLAN) injection 5 mg(Linked Group 2) 5 mg, Intravenous, EVERY 4 HOURS PRN, Starting on Sat01/14/25 at 0819, Until Sat01/19/25 at 1822, Nausea, For nausea unrelieved by ondansetron (ZOFRAN) 0928 (See Alternative - Provider: Yvonne Gonzalez RN)1723 (See Alternative - Provider: Yvonne Gonzalez RN)2128 (See Alternative - Provider: Logan Chaves RN) 1016 (See Alternative - Provider: Sol Mckeon, OLVIN) morphine injection 2 mg(Linked Group 3) 2 mg, Intravenous, EVERY 4 HOURS PRN, Starting on Sat01/13/25 at 1615, Until Sat01/19/25 at 1822, Pain Unrelieved by Oral Opioid Therapy, Begin with lowest dose unless otherwise directed. Reassess pain in 15 minutes. If pain unrelieved, remainder of dose may be given to patient. 1204 (Given - Provider: Yvonne Gonzalez RN) morphine injection 3-4 mg(Linked Group 3) 3-4 mg, Intravenous, EVERY 4 HOURS PRN, Starting on Sat01/13/25 at 1615, Until Sat01/19/25 at 1822, Pain Unrelieved by Oral Opioid Therapy, Begin with lowest dose unless otherwise directed. Reassess pain in 15 minutes. If pain unrelieved, remainder of dose may be given to patient. 1204 (See Alternative - Provider: Yvonne Gonzalez RN) ondansetron (ZOFRAN) injection 4 mg(Linked Group 2) 4 mg, Intravenous, EVERY 4 HOURS PRN, Starting on Sat01/14/25 at 0819, Until Sat01/19/25 at 1822, Nausea 0928 (Given - Provider: Yvonne Gonzalez RN)172 (See Alternative - Provider: Yvonne Gonzalez RN)2124 (See Alternative - Provider: Logan Chaves, OLVIN) 1016 (See Alternative - Provider: Sol Mckeon, OLVIN) ondansetron (ZOFRAN) tablet 4 mg(Linked Group 2) 4 mg, Oral, EVERY 4 HOURS PRN, Starting on Sat01/14/25 at 0819, Until Sat01/19/25 at 1822, Nausea 0928 (See Alternative - Provider: Yvonne Gonzalez RN)1723 (Given - Provider: Yvonne Gonzalez RN)2124 (Given - Provider: Logan Chaves, OLVIN) 1016 (Given - Provider: Sol Mckeon, OLVIN) oxyCODONE-acetaminophen (PERCOCET) 5-325 mg per tablet 1-2 Tablet 1-2 Tablet, Oral, EVERY 4 HOURS PRN, Starting on Sat01/13/25 at 1615, Until Sat01/19/25 at 1822, Pain Unrelieved by Oral Non-Opioid Therapy, Begin with lowest dose unless otherwise directed. Reassess pain in one hour. If pain unrelieved, remainder of dose may be given to patient. *Maximum adult dose of acetaminophen is 4000 mg from all sources in 24 hours.* 0038 (Given - Provider: Karen Dolan RN)0837 (Given - Provider: Yvonne Gonzalez, RN)1721 (Given - Provider: Yvonne Gonzalez, RN)2121 (Given - Provider: Logan Chaves, RN) 0853 (Given - Provider: Padmaja Baez, RN)1308 (Given - Provider: Dee Arango, RN)1711 (Given - Provider: Dee Arango, RN)211 (Given - Provider: Logan Chaves, OLVIN) 1016 (Given - Provider: Sol Mckeon RN) polyethylene glycol (GLYCOLAX, MIRALAX) packet 17 g 17 g, Oral, 2 TIMES DAILY PRN, Starting on Sat01/13/25 at 1615, Until Sat01/19/25 at 1822, Constipation, If multiple oral PRN laxatives/stool softeners ordered, may give per patient preference. senna (SENOKOT) tablet 1-2 Tablet 1-2 Tablet, Oral, DAILY PRN, Starting on Sat01/13/25 at 1615, Until Sat01/19/25 at 1822, Constipation, Start with lowest dose and may give additional if needed. If multiple oral PRN laxatives/stool softeners ordered, may give per patient preference. Linked Groups Order Group 1: albuterol (PROVENTIL HFA;VENTOLIN HFA) inhaler 2 PuffJump to med 2 Puff, Inhalation, PRN, Starting on Sat01/15/25 at 0913, Until Sat01/19/25 at 1822, Wheezing, Shortness of Breath, Waste Sort Code = BLACK [employer] Hazardous Waste Container Or albuterol (PROVENTIL) nebulizer solution 2.5 mgJump to med 2.5 mg, Nebulization, PRN, Starting on Sat01/15/25 at 0913, Until Sat01/19/25 at 1822, Wheezing, Shortness of Breath, Bronchospasm Group 2: ondansetron (ZOFRAN) tablet 4 mgJump to med 4 mg, Oral, EVERY 4 HOURS PRN, Starting on Zoë 01/14/25 at 0819, Until Sat01/19/25 at 1822, Nausea Or ondansetron (ZOFRAN) injection 4 mgJump to med 4 mg, Intravenous, EVERY 4 HOURS PRN, Starting on Zoë 01/14/25 at 0819, Until Sat01/19/25 at 1822, Nausea Or metoclopramide HCl (REGLAN) injection 5 mgJump to med 5 mg, Intravenous, EVERY 4 HOURS PRN, Starting on Zoë 01/14/25 at 0819, Until Sat01/19/25 at 1822, Nausea, For nausea unrelieved by ondansetron (ZOFRAN) Group 3: morphine injection 2 mgJump to med 2 mg, Intravenous, EVERY 4 HOURS PRN, Starting on Sat01/13/25 at 1615, Until Sat01/19/25 at 1822, Pain Unrelieved by Oral Opioid Therapy, Begin with lowest dose unless otherwise directed. Reassess pain in 15 minutes. If pain unrelieved, remainder of dose may be given to patient. Or morphine injection 3-4 mgJump to med 3-4 mg, Intravenous, EVERY 4 HOURS PRN, Starting on Sat01/13/25 at 1615, Until Sat01/19/25 at 1822, Pain Unrelieved by Oral Opioid Therapy, Begin with lowest dose unless otherwise directed. Reassess pain in 15 minutes. If pain unrelieved, remainder of dose may be given to patient. documented in this encounter Orders Medications Ordered That Kalyan ht Not Have Been Administered Count Last Ordered Date First Ordered Date albumin human 25 % bottle 12.5 g 2 01/19/20 25 01/15/2025 heparin (porcine) injection 1,000 Units 4 0 01/18/2025 01/14/2025 sodium chloride 0.9% syringe 10 mL 4 202401/14/2025 albuterol (PROVENTIL HFA;GILSON TOLIN HFA) inhaler 2 Puff 1 01/15/2025 albuterol (PROVENTIL) nebuli zer solution 2.5 mg 1 01/15/2025 metoclopramide HCl (REGLAN) injection 5 mg 1 01/14/2025 traMADoL (ULTRAM) tablet 50 mg 1 01/14/2025 acetaminophen (TYLENOL) tablet 650 mg 1 aluminum & magnesium hydroxi de-simethicone 200-200-20 mg/5 mL suspension 30 mL 1 01/13/2025 bumetanide (BUMEX) injection 2 mg 1 025 fUROsemide (LASix) injection 60 mg 1 2024 metoclopramide HCl (REGLAN) injection 10 mg 1 01/13/2025 morphine injection 3-4 mg 1 01/13/2025 ondansetron (ZOFRAN) injection 4 mg 1 01/13 ondansetron (ZOFRAN) tablet 4 mg 1 01/14/20 25 polyethylene glycol (GLYCOLA X, MIRALAX) packet 17 g 1 01/13/2025 senna (SENOKOT) tablet 1-2 Tablet 1 025 sodium chloride 0.9% IV line flush 50 mL 1 01/13/2025 sodium chloride 0.9% syringe 5-10 mL 1 12/27 Nursing Count Last Ordered Date First Orde red Date NURSING COMMUNICATION 2 01/15/2025 Consult Count Last Ordered Date First Orde red Date IP CONSULT TO NEPHROLOGY 1 01/13/2025 Respiratory Care Count Last Ordered Date First Ordered Date RESPIRATORY MEDICATION(S) BY [facility] 1 01/15/20 RESPIRATORY EVALUATE & TREAT 1 01/13/2025 Admission Count Last Ordered Date First Orde red Date ADMIT 2 01/14/2025 01/13/2025 Discharge Count Last Ordered Date First Orde red Date DISCHARGE PATIENT 1 01/18/2025 documented in this encounter Care Teams [employer] Cook Relationship Specialty Start Date End Date Noreen Ortega DO [address] [place] [id number] PCP - General Family Medicine 10/30/24 Jovi Carter Ud, MD [address] [place] [id number] Internal Medicine-Nephrology 04/11/21 Roger Talley MD [address] [facility] [address] [place] [address] Physician Internal Medicine-Nephrology 05/01/21 documented as of this encounter
--- NOTE | 2025-02-01 10:49 | ED_ITS ---
<Statement entered by Louise Escobar DO - 02/01/25 15:40> I was consulted by the DANIELA, and we discussed the complexity of the problems being addressed. I approved the treatment and management plan for this patient's care in the emergency department, thus performing a substantive portion of the medical decision making. Louise Escobar DO Discharge Plan Disposition Patient Disposition: Xfer Short-Term Hosp Prescriptions Prescriptions: No Action hydralazine 100 mg tablet 100 mg PO TID famotidine 20 mg tablet 20 mg PO HS trazodone 50 mg tablet 50 mg PO HS sodium bicarbonate 650 mg tablet 650 mg PO TID atorvastatin [Lipitor] 40 mg tablet 40 mg PO HS gabapentin 300 mg capsule 300 mg PO HS Qty: 30 2RF oxycodone 5 mg tablet 5 mg PO Q6H PRN (Reason: pain) Qty: 120 0RF melatonin 10 MG tablet 10 mg PO HS sevelamer carbonate 800 MG tablet 800 mg PO TID carvedilol 25 MG tablet 12.5 mg PO BID multivitamin 1 EACH tablet 1 each PO DAILY polyethylene glycol 3350 17 GM powder in packet 17 g PO DAILY aspirin 81 MG tablet,delayed release (DR/EC) 81 mg PO DAILY isosorbide mononitrate 60 MG tablet extended release 24 hr 60 mg PO DAILY ferrous sulfate 325 MG tablet 325 mg PO DAILY albuterol sulfate 8.5 GM HFA aerosol inhaler 1 puff INHALATION Q6HP PRN (Reason: SOA) budesonide-formoterol 10.2 GM HFA aerosol inhaler 21 puffs IH BID cyanocobalamin (vitamin B-12) 50 MCG tablet 50 mcg PO DAILY ipratropium-albuterol 3 ML solution for nebulization 3 ml IH Q6RT 0RF torsemide 20 MG tablet 100 mg PO DAILY 0RF sertraline 100 MG tablet 100 mg PO DAILY 0RF budesonide 0.5 MG/2 ML suspension for nebulization 0.5 mg IH BIDRT 0RF Referrals Follow up/Referrals: Provider,Referral, MD [Primary Care Provider, Medical] - See instructions Activity Restrictions/Add. Instructions Additional Instructions/Restrictions: To [facility] care of Dr. Ledezma Clinical Impressions Clinical Impression: Acute on chronic hypoxic respiratory failure, Pleural effusion, Hypertensive emergency, End-stage renal disease on hemodialysis Pulmonary edema Qualifiers: Chronicity: acute Qualified Code(s): J81.0 - Acute pulmonary edema Volume overload Qualifiers: Hypervolemia type: other Qualified Code(s): E87.79 - Other fluid overload Print Language Print Language: Occitan Discharge ED Provider: Louise Escobar General Adult HPI <GALILEO Mclean - Last Filed: 02/01/25 12:46> General Chief complaint: Shortness of Breath/Dyspnea Stated complaint: Weakness Time Seen by Provider: 02/01/25 11:02 History of Present Illness HPI narrative: Patient presents via EMS for evaluation of dyspnea. Patient is a longstanding end-stage renal disease patient on hemodialysis however she relies on the [employer] bus to transport her to and from dialysis. She states that it has not picked her up for a week. She also has a history of longstanding COPD on 2 L of oxygen 18/02. She has also had CABG but is not on a blood thinner. Patient does still make urine. She denies chest pain fever chills hemoptysis hematochezia melena nausea vomiting diarrhea. She also reports that her lower legs are swollen and hurting. Related Data Home Medications ?Medication ?Instructions ?Recorded ?Confirmed melatonin 10 mg tablet 10 mg PO HS Insomnia 1 11/05/22 atorvastatin 40 mg tablet (Lipitor) 40 mg PO HS Choles terol 06/12/21 11/05/22 famotidine 20 mg tablet 20 mg PO HS GERD 06/12/21 hydralazine 100 mg tablet 100 mg PO TID Hypertension 1 08/12/20 11/05/22 sodium bicarbonate 650 mg tablet 650 mg PO TID Supplem ent 06/12/21 11/05/22 trazodone 50 mg tablet 50 mg PO HS SLEEP 06/12/21 0 11/05/22 sevelamer carbonate 800 mg tablet 800 mg PO TID HYPERP HOSPHATEMIA 07/07/21 11/05/22 aspirin 81 mg tablet,delayed 81 mg PO DAILY Blood thin ner 11/18/21 11/05/22 release carvedilol 25 mg tablet 12.5 mg PO BID HEART RATE 11/05/22 ferrous sulfate 325 mg (65 mg 325 mg PO DAILY Suppleme nt 11/18/21 11/05/22 iron) tablet isosorbide mononitrate 60 mg 60 mg PO DAILY Chest pain 11/18/21 11/05/22 tablet,extended release 24 hr multivitamin 1 each PO DAILY Supplement 0 11/18/21 11/05/22 polyethylene glycol 3350 17 gram 17 g PO DAILY CONSTIP ATION 11/18/21 11/05/22 oral powder packet albuterol sulfate 90 mcg/actuation 1 puff inhalation Q 6HP PRN SOA 11/19/21 11/05/22 aerosol inhaler budesonide-formoterol HFA 80 21 puffs inhalation BID C OPD 11/19/21 11/05/22 mcg-4.5 mcg/actuation aerosol inhaler cyanocobalamin (vitamin B-12) 50 50 mcg PO DAILY Suppl ement 11/19/21 11/05/22 mcg tablet Previous Rx's ?Medication ?Instructions ?Recorded budesonide 0.5 mg/2 mL suspension 0.5 mg (2 mL) inhala tion BIDRT 11/23/21 for nebulization ipratropium 0.5 mg-albuterol 3 mg 3 ml inhalation Q6RT 11/23/21 (2.5 mg base)/3 mL nebulization soln sertraline 100 mg tablet 100 mg PO DAILY 11/23/21 torsemide 20 mg tablet 100 mg (5 x 20 mg) PO DAILY 11/23/21 gabapentin 300 mg capsule 300 mg PO HS #30 caps oxycodone 5 mg tablet 5 mg PO Q6H PRN pain #120 ta bs 05/06/23 Allergies Allergy/AdvReac Type Severity Reaction Status Date / Time No Known Allergies Allergy Verified 11/05/22 09:23 [facility] <GALILEO Mclean - Last Filed: 02/01/25 12:46> [facility] Disclaimer: The information contained in this section may have been updated after the patient was seen, as this information can be updated by other users. Medical History (Updated 02/01/25 @ 12:42 by GALILEO Mclean) Typical angina Ascending aortic aneurysm Bilateral carotid bruits Surgical History Aortic valve replaced Social History Smoking Status: Former smoker tobacco type: cigarettes packs per day: 1 alcohol intake: never current occupational status: disabled Travel in the last 8 weeks?: Inside the [place] household members: children caffeine: Yes Have you lived/traveled outside [place] in past 30 days?: No Contact w/someone who lives/traveled outside US past 30 days?: No Exposure to someone with infectious disease in past 14 days?: No Do you have a fever (greater than 100.4 F or 38 C)?: No Have you tested positive for COVID-19?: No Exposed to someone with COVID-19 in past 14 days?: No Do you have a sore throat?: No Do you have a cough?: No Do you have any weakness?: No Do you have any diarrhea?: No Are you experiencing any unusual bleeding?: No Do you have any muscle aches/pain?: No Do you have any abdominal pain?: No Are you experiencing loss of taste or smell?: No Other Medical History Have you received the Flu Vaccine for this season: No Have you received the Pneumonia Vaccine: No <GALILEO Mclean - Last Filed: 02/01/25 12:46> ROS Obtained: Yes Systems reviewed as appropriate & no additional complaints except as documented Physical Exam <GALILEO Mclean - Last Filed: 02/01/25 12:46> General General appearance: alert and in no apparent distress Respiratory Respiratory exam: Present normal lung sounds bilaterally Cardiovascular Cardiovascular exam: Present irregular rhythm Neurological Exam Neurological exam: Present alert and oriented X3 Medical Decision Making <GALILEO Mclean - Last Filed: 02/01/25 12:46> Medical Records Medical records reviewed: Yes I reviewed the patient's medical records. Screening: Per USPSTF and CDC recommendations, given the prevalence of disease in our region, it is our hospital?s policy to screen for HIV and viral Hepatitis for all patients aged 18 and over and those with ongoing risk factors. [place] Inquiry Pt receiving controlled substance: No Vital Signs: 02/01/25 11:03 02/01/25 11:30 02/01/25 11:55 Temperature 98.4 F Temperature Source Oral Pulse Rate 96 H 94 H Pulse Rate [Right] 103 H Respiratory Rate 20 Blood Pressure 221/120 H 216/111 H Blood Pressure [Right Arm] 207/115 H Blood Pressure Mean 152 153 Blood Pressure Mean [Right Arm] 145 02 Sat by Pulse Oximetry 97 93 L 95 Oxygen Delivery Method Nasal Cannula Oxygen Flow Rate (LPM) 2 02/01/25 12:00 Temperature Temperature Source Pulse Rate 93 H Pulse Rate [Right] Respiratory Rate Blood Pressure 198/106 H Blood Pressure [Right Arm] Blood Pressure Mean 162 Blood Pressure Mean [Right Arm] 02 Sat by Pulse Oximetry 94 L Oxygen Delivery Method Oxygen Flow Rate (LPM) Lab Data Lab results reviewed: Yes I reviewed the patient's lab results. Lab Results 02/01/25 11:05: WBC 8.1, RBC 3.63 L, Hgb 9.8 L, Hct 31.5 L, MCV 86.8, MCH 27.0, MCHC 31.1 L, RDW 15.9, Plt Count 268, MPV 9.3, Neut % (Auto) 77.7, Lymph % (Auto) 13.4, [place] % (Auto) 5.1, Eos % (Auto) 2.4, Baso % (Auto) 1.0, Neut # (Auto) 6.3, Lymph # (Auto) 1.1, [place] # (Auto) 0.4, Eos # (Auto) 0.2, Baso # (Auto) 0.1, PT 11.8, INR 1.07, VBG pH 7.34, VBG pCO2 33.0 L, VBG pO2 70.3 H, VBG HCO3 17.4 L, VBG Total CO2 18.4 L, VBG O2 Saturation 91.9 H, VBG Base Excess - 8.4 L, VBG Lactic Acid 1.0, Sodium 140, Potassium 4.9, Chloride 101, Carbon Dioxide 22, Anion Gap 21.9 H, BUN 48 H, Creatinine 5.70 H, Estimated Creat Clear 12, Estimated GFR 8 L*, Est GFR ( Amer) 9 L*, Glucose 102 H, Calcium 9.7, Phosphorus 6.0 H, Magnesium 2.5 H, Total Bilirubin 0.8, AST 34, ALT 15, Alkaline Phosphatase 89, Troponin I 0.04 H, NT-Pro-B Natriuret Pep 78531 H, Total Protein 8.7 H, Albumin 4.2, Globulin 4.5 H, Albumin/Globulin Ratio 0.9 L 02/01/25 11:25: Urine Color Yellow, Urine Appearance Clear, Urine pH 7.0, Ur Specific [place] 1.020, Urine Protein 3+ A, Urine Glucose (UA) Negative, Urine Ketones Negative, Urine Blood Trace-i, Urine Nitrate Negative, Urine Bilirubin Negative, Urine Urobilinogen 0.2, Ur Leukocyte Esterase Negative, Urine RBC None, Urine WBC 3-5, Ur Squamous Epith Cells 10-20, Urine Bacteria None 02/01/25 11:05 02/01/25 11:05 Orders (Tests/Meds): ED MEDICATIONS Discontinued Medications Generic Name Dose Route Start Last Admin Trade Name Arian PRN Reason Stop Dose Admin Acetaminophen 1,000 mg 02/01/25 11:03 02/01/25 11:15 Acetaminophen 500mg Tab PO 02/01/25 11:04 1,000 mg ONCE ONE Administration Furosemide 80 mg 02/01/25 11:30 02/01/25 11:46 Furosemide 100mg/10ml Vial IV 02/01/25 11:31 80 mg ONCE ONE Administration ORDERS Category Date Time Status Chest XR 2 view (NOT portable) [XR chest 2V] Stat Exams 02/01/25 11:03 Taken BNP [NT Pro Brain Natriuretic Pep.] Stat Lab 02/01/25 11:05 Completed CBC w/Auto Diff [Complete Blood Count Auto Diff] Stat Lab 02/01/25 11:05 Completed CMP [Comprehensive Metabolic Panel] Stat Lab 02/01/25 11:05 Completed INR [Prothrombin Time INR] Stat Lab 02/01/25 11:05 Completed Magnesium Stat Lab 02/01/25 11:05 Completed Phosphorous Stat Lab 02/01/25 11:05 Completed Trop I [Troponin I] Stat Lab 02/01/25 11:05 Completed Troponin I Q3H Lab 02/01/25 14:15 Ordered Troponin I Q3H Lab 02/01/25 17:15 Ordered UA [Urinalysis and Microscopic] Stat Lab 02/01/25 11:25 Completed VBG [Venous Blood Gas] Stat RT 02/01/25 11:05 Completed HEART Score History (anamnesis): Slightly suspicious ECG: Non-specific disturbance Age: 45-65 years Risk factors: Atherosclerosis history Medical Decision Narrative: In summary patient is a 59-year-old female who presents to the emergency department for evaluation of dyspnea and 3 days of missed dialysis. Patient is hypertensive on arrival with a blood pressure of 207/115 a pulse of 103 and what appears to be atrial fibrillation on the bedside monitor breathing 20 times a minute satting at 97% on 2 L by nasal cannula upon arrival, afebrile at 90.4. Physical exam is remarkable for no breathless speech breath sounds actually clear and equal bilaterally to the bases without adventitious sounds, and patient has 3+ bilateral lower extremity edema. Abdomen soft nontender no rebound or guarding no rigidity.. Differential diagnosis includes volume overload versus CHF versus COPD versus electrolyte abnormality versus ACS etc. Initial workup will be conducted with hematologic labs plain film chest x-ray. Initial interventions include 80 of Lasix, patient received 125 of Solu-Medrol and DuoNeb by EMS en route. Initial workup reviewed by me and my informal interpretation of her chest x-ray shows pulmonary edema and a new pleural effusion. Hematologic labs show normal white count H&H 9.8 and 31.5 respectively VBG shows a pH 7.34 pCO2 33.0 PVR GPO2 70.3 lactic acid 1.0, gap 21.9 BUN is 48 creatinine is 5.7 GFR is 8 phosphorus is 6 magnesium is 2.5 initial troponin is 0.04 NT proBNP is 28,500 total protein is 8.7 urinalysis shows 3+ of protein otherwise bland. Upon repeat evaluation patient remains hypertensive with a blood pressure of 198/106 and still in atrial fib but a controlled rate of 93. Given her new pulmonary edema pleural effusion and malignant hypertension I have initiated transfer to facility that does dialysis. I was able to reach [facility] and spoke with Dr. Ledezma about patient presentation GUILLERMO and management and she has been accepted in transfer for further evaluation and care. <Louise Escobar, DO - Last Filed: 02/01/25 11:07> Vital Signs: 02/01/25 11:03 02/01/25 11:30 02/01/25 11:55 Temperature 98.4 F Temperature Source Oral Pulse Rate 96 H 94 H Pulse Rate [Right] 103 H Respiratory Rate 20 Blood Pressure 221/120 H 216/111 H Blood Pressure [Right Arm] 207/115 H Blood Pressure Mean 152 153 Blood Pressure Mean [Right Arm] 145 02 Sat by Pulse Oximetry 97 93 L 95 Oxygen Delivery Method Nasal Cannula Oxygen Flow Rate (LPM) 2 02/01/25 12:00 Temperature Temperature Source Pulse Rate 93 H Pulse Rate [Right] Respiratory Rate Blood Pressure 198/106 H Blood Pressure [Right Arm] Blood Pressure Mean 162 Blood Pressure Mean [Right Arm] 02 Sat by Pulse Oximetry 94 L Oxygen Delivery Method Oxygen Flow Rate (LPM) Lab Data Lab Results 02/01/25 11:05: WBC 8.1, RBC 3.63 L, Hgb 9.8 L, Hct 31.5 L, MCV 86.8, MCH 27.0, MCHC 31.1 L, RDW 15.9, Plt Count 268, MPV 9.3, Neut % (Auto) 77.7, Lymph % (Auto) 13.4, [place] % (Auto) 5.1, Eos % (Auto) 2.4, Baso % (Auto) 1.0, Neut # (Auto) 6.3, Lymph # (Auto) 1.1, [place] # (Auto) 0.4, Eos # (Auto) 0.2, Baso # (Auto) 0.1, PT 11.8, INR 1.07, VBG pH 7.34, VBG pCO2 33.0 L, VBG pO2 70.3 H, VBG HCO3 17.4 L, VBG Total CO2 18.4 L, VBG O2 Saturation 91.9 H, VBG Base Excess - 8.4 L, VBG Lactic Acid 1.0, Sodium 140, Potassium 4.9, Chloride 101, Carbon Dioxide 22, Anion Gap 21.9 H, BUN 48 H, Creatinine 5.70 H, Estimated Creat Clear 12, Estimated GFR 8 L*, Est GFR ( Amer) 9 L*, Glucose 102 H, Calcium 9.7, Phosphorus 6.0 H, Magnesium 2.5 H, Total Bilirubin 0.8, AST 34, ALT 15, Alkaline Phosphatase 89, Troponin I 0.04 H, NT-Pro-B Natriuret Pep 85517 H, Total Protein 8.7 H, Albumin 4.2, Globulin 4.5 H, Albumin/Globulin Ratio 0.9 L 02/01/25 11:25: Urine Color Yellow, Urine Appearance Clear, Urine pH 7.0, Ur Specific [place] 1.020, Urine Protein 3+ A, Urine Glucose (UA) Negative, Urine Ketones Negative, Urine Blood Trace-i, Urine Nitrate Negative, Urine Bilirubin Negative, Urine Urobilinogen 0.2, Ur Leukocyte Esterase Negative, Urine RBC None, Urine WBC 3-5, Ur Squamous Epith Cells 10-20, Urine Bacteria None Orders (Tests/Meds): ED MEDICATIONS Discontinued Medications Generic Name Dose Route Start Last Admin Trade Name Arian PRN Reason Stop Dose Admin Acetaminophen 1,000 mg 02/01/25 11:03 02/01/25 11:15 Acetaminophen 500mg Tab PO 02/01/25 11:04 1,000 mg ONCE ONE Administration Furosemide 80 mg 02/01/25 11:30 02/01/25 11:46 Furosemide 100mg/10ml Vial IV 02/01/25 11:31 80 mg ONCE ONE Administration ORDERS Category Date Time Status Chest XR 2 view (NOT portable) [XR chest 2V] Stat Exams 02/01/25 11:03 Taken BNP [NT Pro Brain Natriuretic Pep.] Stat Lab 02/01/25 11:05 Completed CBC w/Auto Diff [Complete Blood Count Auto Diff] Stat Lab 02/01/25 11:05 Completed CMP [Comprehensive Metabolic Panel] Stat Lab 02/01/25 11:05 Completed INR [Prothrombin Time INR] Stat Lab 02/01/25 11:05 Completed Magnesium Stat Lab 02/01/25 11:05 Completed Phosphorous Stat Lab 02/01/25 11:05 Completed Trop I [Troponin I] Stat Lab 02/01/25 11:05 Completed Troponin I Q3H Lab 02/01/25 14:15 Ordered Troponin I Q3H Lab 02/01/25 17:15 Ordered UA [Urinalysis and Microscopic] Stat Lab 02/01/25 11:25 Completed VBG [Venous Blood Gas] Stat RT 02/01/25 11:05 Completed ECG Data Tracing #1: I reviewed this ECG and interpreted as documented below: Atrial fibrillation with a ventricular to [address] changes concerning for STEMI. ECG initial impression date: 02/01/25 ECG initial impression time: 10:58 Critical Care <GALILEO Mclean - Last Filed: 02/01/25 12:46> Critical Care Time Critical Care Time: Yes Attestation: On 02/01/25, the high probability of a clinically significant, sudden or life threatening deterioration of the following system(s) required my full and direct attention, intervention and personal management. The time I documented below is in addition to time spent performing reported procedures but includes the following listed in this critical care notation. Total Time Total Critical Care Time: 30
--- NOTE | 2025-02-01 10:56 | ECG_ITS ---
APPROVED REPORT Exam: Resting ECG HR:100 bpm ECG Measurements Heart Rate 100 AXES QRSd 83 QRS 55 QT 336 T 91 QTc 393 Conclusion ATRIAL FIBRILLATION WITH RAPID VENTRICULAR RESPONSE POSSIBLE RIGHT VENTRICULAR CONDUCTION DELAY [RSR (QR) IN V1/V2] No acute STEMI Electronically signed by : ZAC VERA, 02/01/2025 15:58:12
[2025-02-01 11:03] VITALS: BP 207/115; PULSE 103; RESP 20; TEMP 36.9; O2SAT 97; BMI 26.4
--- NOTE | 2025-02-01 11:03 | XR_ITS ---
FINAL REPORT CLINICAL HISTORY: Dyspnea, not dialyzed x 3 days FINDINGS: 2 views of the chest were obtained . The heart is mildly enlarged. Aorta is unfolded. The mediastinum is within normal limits. There are chronic changes at the lung bases. Small bilateral pleural effusions are seen. There is no pneumothorax. Osseous structures are unremarkable. IMPRESSION: Small bilateral pleural effusions. Reviewed, Interpreted and Dictated by Jad Perez MD Transcribed by Cherise Ca Authenticated and [facility]
[2025-02-01 11:13] LABS: Hematocrit 31.5 % (37.0-47.0); Hemoglobin 9.8 g/dL (12.2-16.2); Immature Granulocytes % 0.4 %; Mean Corpuscular HGB Conc 31.1 g/dL (31.8-35.4); Mean Corpuscular Hemoglobin 27.0 pg (27.0-31.2); Mean Corpuscular Volume 86.8 fl (81-99); Nucleated Red Blood Cells % 0 %; Platelet Count 268 K/mm3 (142-424); Red Blood Count 3.63 M/mm3 (4.20-5.40); Red Cell Distribution Width-SD 50.8 fL; White Blood Count 8.1 K/mm3 (4.8-10.8)
[2025-02-01] MEDS: ACETAMINOPHEN 500MG TAB 1000 MG PO (11:15)
[2025-02-01 11:16] LABS: Lactate Venous 1.0 mmol/L (0.4-2.0); VBG HCO3 17.4 mmol/L (23-30); VBG PCO2 33.0 mmol/L (35-51); VBG PH 7.34 mmol/L (7.31-7.41); VBG PO2 70.3 mmol/L (28-40)
[2025-02-01 11:19] LABS: INR 1.07 (0.9-1.1); Prothrombin Time 11.8 seconds (10.1-12.5)
[2025-02-01 11:21] LABS: Alanine Aminotransferase 15 U/L (12-78); Albumin Level 4.2 g/dl (3.5-5.0); Albumin/Globulin Ratio 0.9 (1.1-1.8); Alkaline Phosphatase 89 U/L (38-126); Anion Gap 21.9 mEq/L (5-15); Aspartate Amino Transferase 34 U/L (14-36); Bilirubin,Total 0.8 mg/dl (0.2-1.3); Blood Urea Nitrogen 48 mg/dl (7-17); Calcium 9.7 mg/dl (8.4-10.2); Carbon Dioxide 22 mmol/L (22.0-30.0); Chloride 101 mmol/L (98-107); Creatinine Clearance Estimated 12 mL/min (50-200); Estimated Glomerular Filt Rate 8 ml/min (>60); GFR (African American) 9 ML/MIN (>60); Globulin 4.5 g/dL (1.3-3.2); Glucose 102 mg/dl (74-100); Magnesium 2.5 mg/dl (1.6-2.3); Phosphorous 6.0 mg/dl (2.5-4.5); Potassium 4.9 mmoL/L (3.5-5.1); Sodium 140 mmol/L (136-145); Total Protein,Serum 8.7 g/dl (6.3-8.2)
[2025-02-01 11:26] LABS: Creatinine,Serum 5.70 mg/dl (0.52-1.04)
--- OUTSIDE RECORDS SUMMARY | 2025-02-01 11:26 | XMS_ITS | Clinical Summary ---
Author Organization [facility] Address [address] [place] [id number] Phone Care Team Providers Care Shower Screen Installer Name Role Phone Unavailable Unavailable Conditions or Problems No information available. Medications No information available. Medications Administered No information available. Allergies, Adverse Reactions, Alerts No information available. Results No information available. Plan of Care No information available. Procedures No information available. Vital Signs No information available. Immunizations No information available. Advance Directives No information available.
--- OUTSIDE RECORDS SUMMARY | 2025-02-01 11:26 | XMS_ITS | Clinical Summary ---
Author Organization [facility] [[email or web address]] YAKELIN GRANT Address [address] [place] [address] Phone Care Team Providers Care Technical Sales Representative Name Role Phone Jovi Carter Ud, MD Unavailable [phone] Roger Talley MD Unavailable Noreen Ortega DO Primary Care Provider [phone] Allergies No known active allergies Medications * This document contains information received from the source organization and may not represent a complete record from that organization. ferrous sulfate 325 mg (65 mg iron) Oral Tablet Take by mouth daily. Active polyethylene glycol (GLYCOLAX) 17 gram/dose Oral Powder Take 17 g by mouth daily. Active b lcolqpf-Y-qobhl acid (NEPHROCAP) 1 mg Oral Capsule Take 1 Capsule by mouth daily. Active ergocalciferol (VITAMIN D) 1,250 mcg (50,000 unit) Oral Capsule Take 1 Capsule by mouth once a week. 12 Capsule 1 1 Active calcium acetate,phosphat bind, (PHOSLO) 667 mg Oral Capsule Take two tablets with each meal. Take one tablet with each snack. 240 Capsule 5 3 Active torsemide (DEMADEX) 20 mg Oral TabletIndication s:Hypertensive urgency Take five tablets once daily. 450 Tablet 3 3 Active Additional Information Patient not taking.Reason: Pt electing to not take the medication, Reported on 01/13/2025 oxyCODONE (ROXICODONE) 5 mg Oral Tablet Take 5 mg by mouth every 6 hours as needed. 2 Active albuterol (PROVENTIL HFA;VENTOLIN HFA) 90 mcg/actuation Inhl HFA Aerosol InhalerIndicatio ns:Chronic obstructive pulmonary disease, unspecified COPD type ([facility]) Inhale 2 Puffs into the lungs every 6 hours and prn. 18 g 3 5 Active aspirin 81 mg Oral Tablet, ChewableIndicati ons:Essential hypertension Take 1 Tablet by mouth daily for 360 days. 90 Tablet 3 5 10/26/19 26 Active atorvastatin (LIPITOR) 40 mg Oral TabletIndication s:Ischemic heart disease Take 1 Tablet by mouth daily. 90 Tablet 3 5 Active carvediloL (COREG) 12.5 mg Oral TabletIndication s:Essential hypertension Take 1 Tablet by mouth 2 times daily (with meals) for 360 days. Take one tablet by mouth twice daily 180 Tablet 3 5 10/26/19 26 Active famotidine (PEPCID) 20 mg Oral TabletIndication s:GERD without esophagitis Take 1 Tablet by mouth nightly for 360 days. 90 Tablet 3 5 10/26/19 26 Active isosorbide mononitrate (IMDUR) 60 mg Oral Tablet Sustained Release 24 hrIndications:Es sential hypertension,CKD (chronic kidney disease) stage 4, GFR 15-29 ml/min ([facility]) Take 1 Tablet by mouth every morning for 360 days. 90 Tablet 3 5 10/26/19 26 Active sertraline (ZOLOFT) 50 mg Oral TabletIndication s:Recurrent mild major depressive disorder with anxiety Take 1 Tablet by mouth daily. 90 Tablet 3 5 Active traZODone (DESYREL) 50 mg Oral TabletIndication s:Insomnia, persistent Take 1 Tablet by mouth nightly for 180 days. 90 Tablet 1 5 04/28/20 25 Active gabapentin (NEURONTIN) 100 mg Oral CapsuleIndicatio ns:Other chronic pain Take 1 Capsule by mouth 3 times daily for 30 days. 90 Capsule 5 Active hydrALAZINE (APRESOLINE) 100 mg Oral TabletIndication s:Essential hypertension Take 1 Tablet by mouth every 8 hours. 90 Tablet 5 5 Active Melatonin 3 mg Oral TabletIndication s:Insomnia, persistent Take 3.5 Tablets by mouth nightly for 180 days. 315 Tablet 1 5 04/28/20 25 Active traMADoL (ULTRAM) 50 mg Oral TabletIndication s:Essential hypertension,Oth er chronic pain Take 1 Tablet by mouth every 6 hours as needed for Pain. 120 Tablet Active Active Problems Patient Care Coordination No te Formatting of this note migh t be different from the original. IVA [facility] office: 10/30/24 Problem Noted Date Diagnosed Date Thoracoabdominal aortic aneurysm (TAAA) without rupture 01/14/2025 Assessment & Plan (01/18/2025 1:58 PM EDT): Measuring 4.3 cm in diameter. Recommend repeat imaging in 6 months to evaluate for expanding lesion. No surgical intervention indicated as lesion is not greater than 5 cm. Assessment & Plan (01/17/2025 5:50 AM EDT): Measuring 4.3 cm in diameter. Recommend repeat imaging in 6 months to evaluate for expanding lesion. No surgical intervention indicated as lesion is not greater than 5 cm. Assessment & Plan (01/16/2025 9:46 AM EDT): Measuring 4.3 cm in diameter. Recommend repeat imaging in 6 months to evaluate for expanding lesion. No surgical intervention indicated as lesion is not greater than 5 cm. Assessment & Plan (01/15/2025 8:39 AM EDT): Measuring 4.3 cm in diameter. Recommend repeat imaging in 6 months to evaluate for expanding lesion. No surgical intervention indicated as lesion is not greater than 5 cm. Assessment & Plan (01/14/2025 6:05 PM EDT): Measuring 4.3 cm in diameter. Recommend repeat imaging in 6 months to evaluate for expanding lesion. No surgical intervention indicated as lesion is not greater than 5 cm. Bilateral lower extremity edema 01/13/2025 Assessment & Plan (01/18/2025 1:58 PM EDT): Apply compression stockings. Continue IV diuresis. Nephrology following Assessment & Plan (01/17/2025 5:50 AM EDT): Apply compression stockings. Continue IV diuresis. Nephrology following Assessment & Plan (01/16/2025 9:46 AM EDT): Apply compression stockings. Continue IV diuresis. Nephrology following Assessment & Plan (01/15/2025 4:55 PM EDT): Apply compression stockings. Continue IV diuresis. Nephrology following Assessment & Plan (01/14/2025 8:45 AM EDT): Apply compression stockings. Continue IV diuresis. Nephrology consulted for dialysis. Assessment & Plan (01/13/2025 4:16 PM EDT): Apply compression stockings. Continue IV diuresis. Nephrology consulted for dialysis. Acute on chronic HFrEF (hear t failure with reduced ejection fraction) 01/13/2025 Assessment & Plan (01/18/2025 1:58 PM EDT): Appears resolved. Acute decompensation secondary to missed dialysis sessions. TTE from 2020 demonstrating preserved EF with preserved fraction of 50 to 60%. Telemetry personally reviewed on 01/18/2025 normal sinus with rates in the 60s. Continue on dialysis and IV diuresis with 4 mg of IV Bumex twice daily. Monitor urine output. Strict I's and O's Assessment & Plan (01/17/2025 12:33 PM EDT): Appears resolved. Acute decompensation secondary to missed dialysis sessions. TTE from 2020 demonstrating preserved EF with preserved fraction of 50 to 60%. Telemetry personally reviewed on 01/17/2025 normal sinus with rates in the 60s. Continue on dialysis and IV diuresis with 4 mg of IV Bumex twice daily. Monitor urine output. Strict I's and O's Assessment & Plan (01/16/2025 1:40 PM EDT): Appears resolved. Acute decompensation secondary to missed dialysis sessions. TTE from 2020 demonstrating preserved EF with preserved fraction of 50 to 60%. Telemetry personally reviewed on 01/16/2025 noted to be normal sinus. Continue on dialysis and IV diuresis with 4 mg of IV Bumex twice daily. Monitor urine output. Strict I's and O's Assessment & Plan (01/15/2025 4:57 PM EDT): Acute decompensation secondary to missed dialysis sessions. TTE from 2020 demonstrating preserved EF with preserved fraction of 50 to 60%. Telemetry personally reviewed on 01/15/2025 noted to be normal sinus. Continue on dialysis and IV diuresis. Monitor urine output. Strict I's and O's Assessment & Plan (01/14/2025 6:05 PM EDT): Acute decompensation secondary to missed dialysis sessions. TTE from 2020 demonstrating preserved EF with preserved fraction of 50 to 60%. CXR with Pulmonary Edema. Receiving 3.8 kg of fluid removal continue IV diuresis. Monitor urine output. Assessment & Plan (01/13/2025 5:12 PM EDT): Acute decompensation secondary to missed dialysis sessions. TTE from 2020 demonstrating preserved EF with preserved fraction of 50 to 60%. CXR with Pulmonary Edema. Nephrology to assist with fluid status. Start IV diuresis. Monitor urine output. Acute lumbar back pain 01/13/2025 Assessment & Plan (01/18/2025 1:58 PM EDT): X-ray personally reviewed no evidence of acute fracture. CT personally reviewed with no evidence of fracture. Continue supportive management Assessment & Plan (01/17/2025 5:50 AM EDT): X-ray personally reviewed no evidence of acute fracture. CT personally reviewed with no evidence of fracture. Continue supportive management Assessment & Plan (01/16/2025 9:46 AM EDT): X-ray personally reviewed no evidence of acute fracture. CT personally reviewed with no evidence of fracture. Continue supportive management Assessment & Plan (01/15/2025 4:55 PM EDT): X-ray personally reviewed no evidence of acute fracture. CT personally reviewed with no evidence of fracture. Continue supportive management Assessment & Plan (01/14/2025 6:05 PM EDT): X-ray personally reviewed no evidence of acute fracture. CT personally reviewed with no evidence of fracture. Assessment & Plan (01/13/2025 5:02 PM EDT): X-ray personally reviewed no evidence of acute fracture. Will obtain a CT for further analysis. Chronic respiratory failure with hypoxia Assessment & Plan (01/18/2025 1:58 PM EDT): Baseline oxygen requirements of 2 L via nasal cannula. Remains on baseline oxygen requirements. Continue to monitor Assessment & Plan (01/17/2025 5:50 AM EDT): Baseline oxygen requirements of 2 L via nasal cannula. Remains on baseline oxygen requirements. Continue to monitor Assessment & Plan (01/16/2025 9:46 AM EDT): Baseline oxygen requirements of 2 L via nasal cannula. Remains on baseline oxygen requirements. Continue to monitor Assessment & Plan (01/15/2025 8:39 AM EDT): Baseline oxygen requirements of 2 L via nasal cannula. Remains on baseline oxygen requirements. Continue to monitor Assessment & Plan (01/14/2025 6:05 PM EDT): Baseline oxygen requirements of 2 L via nasal cannula. Remains on baseline oxygen requirements. Continue to monitor Assessment & Plan (01/13/2025 5:12 PM EDT): Baseline oxygen requirements of 2 L via nasal cannula. Remains on baseline oxygen requirements. Continue to monitor Acute pulmonary edema 01/13/2025 Assessment & Plan (01/18/2025 1:58 PM EDT): Appears resolved. Acute decompensation secondary to missed dialysis sessions. TTE from 2020 demonstrating preserved EF with preserved fraction of 50 to 60%. Telemetry personally reviewed on 01/18/2025 normal sinus with rates in the 60s. Continue on dialysis and IV diuresis with 4 mg of IV Bumex twice daily. Monitor urine output. Strict I's and O's Assessment & Plan (01/17/2025 12:33 PM EDT): Appears resolved. Acute decompensation secondary to missed dialysis sessions. TTE from 2020 demonstrating preserved EF with preserved fraction of 50 to 60%. Telemetry personally reviewed on 01/17/2025 normal sinus with rates in the 60s. Continue on dialysis and IV diuresis with 4 mg of IV Bumex twice daily. Monitor urine output. Strict I's and O's Assessment & Plan (01/16/2025 1:40 PM EDT): Appears resolved. Acute decompensation secondary to missed dialysis sessions. TTE from 2020 demonstrating preserved EF with preserved fraction of 50 to 60%. Telemetry personally reviewed on 01/16/2025 noted to be normal sinus. Continue on dialysis and IV diuresis with 4 mg of IV Bumex twice daily. Monitor urine output. Strict I's and O's Assessment & Plan (01/15/2025 4:57 PM EDT): Acute decompensation secondary to missed dialysis sessions. TTE from 2020 demonstrating preserved EF with preserved fraction of 50 to 60%. Telemetry personally reviewed on 01/15/2025 noted to be normal sinus. Continue on dialysis and IV diuresis. Monitor urine output. Strict I's and O's Assessment & Plan (01/14/2025 6:05 PM EDT): Acute decompensation secondary to missed dialysis sessions. TTE from 2020 demonstrating preserved EF with preserved fraction of 50 to 60%. CXR with Pulmonary Edema. Receiving 3.8 kg of fluid removal continue IV diuresis. Monitor urine output. Assessment & Plan (01/13/2025 5:12 PM EDT): Acute decompensation secondary to missed dialysis sessions. TTE from 2020 demonstrating preserved EF with preserved fraction of 50 to 60%. CXR with Pulmonary Edema. Nephrology to assist with fluid status. Start IV diuresis. Monitor urine output. Insomnia, persistent 10/30/2024 Controlled substance agreement signed 10/30/2024 GERD without esophagitis 10/30/2024 Vitamin D deficiency 10/30/2024 End stage renal disease on dialysis 08/01/2022 Assessment & Plan (01/18/2025 1:58 PM EDT): Nephrology consulted for ongoing diuresis. Assessment & Plan (01/17/2025 5:50 AM EDT): Nephrology consulted for ongoing diuresis. Assessment & Plan (01/16/2025 9:46 AM EDT): Nephrology consulted for ongoing diuresis. Assessment & Plan (01/15/2025 8:39 AM EDT): Nephrology consulted for ongoing diuresis. Assessment & Plan (01/14/2025 8:45 AM EDT): Nephrology consulted for ongoing diuresis. Assessment & Plan (01/13/2025 5:12 PM EDT): Nephrology consulted for ongoing diuresis. Anemia due to stage 4 chronic kidney disease 04/2022 Assessment & Plan (01/18/2025 1:58 PM EDT): EPO as per nephrology. Assessment & Plan (01/17/2025 5:50 AM EDT): EPO as per nephrology. Assessment & Plan (01/16/2025 9:46 AM EDT): EPO as per nephrology. Assessment & Plan (01/15/2025 4:55 PM EDT): EPO as per nephrology. Assessment & Plan (01/14/2025 8:45 AM EDT): EPO as per neurology. Assessment & Plan (01/13/2025 5:02 PM EDT): EPO as per neurology. Assessment & Plan (10/30/2024 12:53 PM EDT): Stat referral to nephrology to resume dialysis treatment as soon as possible Chronic kidney disease-mineral and bone disorder 08/07/2021 Recurrent mild major depressive disorder with an xiety 06/19/2021 Assessment & Plan (10/30/2024 12:53 PM EDT): Restart home psych medications Other chronic pain 06/19/2021 CKD (chronic kidney disease) stage 4, GFR 15-29 ml/min 04/03/2021 Assessment & Plan (01/18/2025 1:58 PM EDT): Nephrology consulted for ongoing diuresis. Assessment & Plan (01/17/2025 5:50 AM EDT): Nephrology consulted for ongoing diuresis. Assessment & Plan (01/16/2025 9:46 AM EDT): Nephrology consulted for ongoing diuresis. Assessment & Plan (01/15/2025 8:39 AM EDT): Nephrology consulted for ongoing diuresis. Assessment & Plan (01/14/2025 8:45 AM EDT): Nephrology consulted for ongoing diuresis. Assessment & Plan (01/13/2025 5:12 PM EDT): Nephrology consulted for ongoing diuresis. Assessment & Plan (10/30/2024 12:53 PM EDT): Stat referral to nephrology to resume dialysis treatment as soon as possible Hypertensive urgency 04/02/2021 Assessment & Plan (10/30/2024 12:51 PM EDT): Likely secondary to being out of her home medications. Will restart home medications with anticipated improvement. Close monitoring and follow up Ischemic heart disease 03/29/2021 Assessment & Plan (10/30/2024 12:50 PM EDT): Needs to establish care with cardiology in this area. Referral placed today Will restart her home medications Severe protein-calorie malnutrition 01/08/2021 COPD (chronic obstructive pulmonary disease) Assessment & Plan (01/18/2025 1:58 PM EDT): Baseline oxygen requirements of 2 L via nasal cannula. Remains on baseline oxygen requirements. Continue to monitor Assessment & Plan (01/17/2025 5:50 AM EDT): Baseline oxygen requirements of 2 L via nasal cannula. Remains on baseline oxygen requirements. Continue to monitor Assessment & Plan (01/16/2025 9:46 AM EDT): Baseline oxygen requirements of 2 L via nasal cannula. Remains on baseline oxygen requirements. Continue to monitor Assessment & Plan (01/15/2025 8:39 AM EDT): Baseline oxygen requirements of 2 L via nasal cannula. Remains on baseline oxygen requirements. Continue to monitor Assessment & Plan (01/14/2025 6:05 PM EDT): Baseline oxygen requirements of 2 L via nasal cannula. Remains on baseline oxygen requirements. Continue to monitor Assessment & Plan (10/30/2024 12:52 PM EDT): Currently on prn albuterol. Reports hx of other inhaler but pt does not recall the name. She plans to contact our office with this information Atherosclerosis of [place] co ronary artery of [place] heart without angina pectoris 04/12/2020 Assessment & Plan (10/30/2024 12:51 PM EDT): Needs to establish care with cardiology in this area. Referral placed today Will restart her home medications Pulmonary hypertension 04/12/2020 Assessment & Plan (10/30/2024 12:49 PM EDT): Needs to establish care with cardiology. May need pulmonology Thoracic aortic aneurysm without rupture 020 Assessment & Plan (10/30/2024 12:49 PM EDT): Will try to obtain records about last imaging Likely needs repeat imaging to monitor size Essential hypertension 03/03/2018 Assessment & Plan (10/30/2024 12:51 PM EDT): Needs to establish care with cardiology in this area. Referral placed today Will restart her home medications Resolved Problems Problem Noted Date Diagnosed Date Resolved Date Acute pulmonary edema 10/30/20242024 Community acquired pneumonia of left lower lobe of lung 10/30/2024 10/30/2024 Hypertension, accelerated 10/30/2024 Mood disorder 12/24/2023 10/30/2024 Mood insomnia 12/24/2023 10/30/2024 Metabolic acidosis 08/07/2021 MDD (major depressive disord er), recurrent episode, mild 06/19/2021 10/30/2024 Chest pain in adult 04/03/2021 10/31/19 25 Normocytic anemia 04/03/2021 10/30/2024 Leg swelling 03/29/2021 10/30/2024 Adebq-af-htkaibt renal failure 01/08/2021 10/30/2024 Serum creatinine raised 03/03/2018 04/0 10/2024 Calculus of kidney 09/22/2010 Encounters Date Type Department Care Team Description 01/22/2025 Telephone CLINICAL OUTCOMES [facility] [place] [address] Anuja Mancia, OLVIN Follow-up 01/22/2025 Patient Outreach [facility] [address] Appointment Location [facility] [phone] Shahana Lew, RN CM- Telephonic Outreach; Hospital Follow Up 01/20/2025 Patient Outreach [facility] [address] Appointment Location [place] [facility] [address] Shahana Lew, RN CM- Telephonic Outreach; Hospital Follow Up 01/13/2025 1:25 PM EDT - 01/19/2025 2:22 PM EDT Hospital Encounter [facility] [address] [address] [place], [place] [id number] Dennis Gracia MD Myrtil, MD Khadra Murdock Kirk A, MD Bilateral lower extremity edema (Primary Dx); Hypervolemia, unspecified hypervolemia type; Acute midline low back pain without sciatica; End stage renal disease on dialysis (HCC) Discharge Disposition: Home or Self Care 01/13/2025 Travel 11/13/2024 Patient Outreach [facility] [address] [place] [address] Noreen Ortega DO Central Order Completion Outreach (mammogram ) 11/02/2024 Telephone [facility] Nephrology [place] [address] [place] [address] Deborah Li MD Appointment Needed 11/02/2024 Telephone [facility] [address] [place] [address] Cherie Ge RMA Referral from Last 3 Months Immunizations Immunization Administration Dates Next Due Influenza Vaccine Quadrivalent PF 05/20/2020,,06/03/2019 PPD Test 01/20/2021 Pfizer SARS-CoV-2 Vaccine 12 + Yrs (Purple Cap) 04/06/2021 Pneumococcal Polysaccharide 23 Valent 03/31/2020 Surgical History Surgery Date Site/Laterality Comments CARDIAC SURGERY Medical History Medical History Date Comments Pleural effusion on left Aortic aneurysm H/O mitral valve replacement H/O tricuspid valve repair Social History Tobacco Use Types Packs/Day Years Used Date Smoking Tobacco: Former Cigarettes 0.2 37.3 0 04/05/1985 - 07/29/2022 Smokeless Tobacco: Never Tobacco Cessation:Counseling Given: Not Answered Alcohol Use Standard Drinks/Week Comments Never 0 (1 standard drink = 0.6 oz pur e alcohol) [facility] Utilities Answer Date Recorded In the past 12 months has e electric, gas, oil, or water company threatened to [...] Date Recorded PHQ-2 Total Score 0 01/16/2025 [facility] - Occupational Stress [...] money to get more. Never true 01/16/2025 [facility] IP Transportation Answer D ate Recorded In [...] on file Sexual Orientation Not on file Obstetrics History Last Filed Vital Signs Vital Sign Reading [...] Mass Index 26.43 01/13/2025 5:44 PM EDT Plan of Treatment Upcoming Encounters Date Type Department Care Team (Late st Contact Info) Description 02/09/2025 1:15 PM EDT Office Visit [facility] Nephrology [place] [address] [place] [address] Deborah Li MD [address] [place] [address] Health Maintenance Due Date Last Done Comments DTaP/TDaP/Td (1 - Tdap) 1984 Hepatitis B Vaccine (1 of 3 - Risk Dialysis 4-dose series) 1985 Cervical Cancer Screening 1986 Pap Smear 1986 HPV/Pap Cotest 1995 Breast Cancer Screening 2005 Cologuard 2010 Colon Cancer Screening 2010 Colonoscopy 2010 FIT 2010 Sigmoidoscopy 2010 Virtual Colonography 2010 Zoster (1 of 2) 2015 Pneumococcal Vaccine 50+ (2 of 2 - PCV) 03/31/2021 03/31/2020 COVID-19 Vaccine (3 - 2023-2 5 season) 2024 05/09/2021, 04/06/2021 Influenza Vaccine (#1) 2025 0, 08/22/2019, 06/03/2019 Annual Wellness Exam 10/30/2025 10/30/2024 Hepatitis C Screening Completed 01/13/2025 , 10/30/2024 Meningococcal B Vaccine Aged Out No l onger eligible based on patient's age to complete this topic Goals Goal Patient Goal Type Associated Problems Recent Progress Patient-Stated? Author Blood Pressure < 140/90 Blood Pressure 142/73(2024 12:30 PM EDT) No Yakelin Sutton CCMA Maintain a healthy diet, exercise regularly and maintain an ideal body weight General No Yakelin Sutton CCMA Stay Tobacco Free Lifestyle No Yakelin Sutton CCMA Procedures Procedure Name Priority Date/Time Associated Diagnosis Comments ECG AND WAVEFORMS - TELEMETRY Routine 01/19/2025 7:00 AM EDT ECG AND WAVEFORMS - TELEMETRY Routine 01/18/2025 7:51 PM EDT ECG AND WAVEFORMS - TELEMETRY Routine 01/18/2025 7:00 AM EDT RENAL FUNCTION PANEL STAT 01/18/2025 6:08 AM EDT End stage renal disease on dialysis (HCC) CBC WITH DIFF STAT 01/18/2025 6:08 AM EDT End stage renal disease on dialysis (HCC) EXTRA MINT GREEN LI Routine 01/18/2025 6:08 AM EDT EXTRA TUBES PANEL Routine 01/18/2025 6:08 AM EDT PLATELET COUNT Timed 01/18/2025 6:08 AM EDT ECG AND WAVEFORMS - TELEMETRY [...] End stage renal disease on dialysis (HCC) FERRITIN Routine 01/14/2025 5:43 AM EDT End stage renal disease on dialysis (HCC) CBC Early AM 01/14/2025 5:43 AM EDT BASIC METABOLIC PANEL Early AM 01/14/2025 5:43 [...] SURFACE ANTIGEN STAT 01/13/2025 5:01 PM EDT HEPATITIS B SURFACE ANTIBODY STAT 01/13/2025 5:01 PM EDT HEPATITIS B SURFACE ANTIBODY STAT 01/13/2025 5:01 PM EDT XR CHEST PA AND LATERAL STAT 01/13/2025 4:22 PM EDT XR LUMBAR SPINE AP AND LATERAL MART 01/13/2025 4:22 PM EDT ADMIT Routine 01/13/2025 4:03 PM EDT IP CONSULT TO NEPHROLOGY Routine 01/13/2025 3:59 PM EDT Procedure Note - Mike Carter MD - 01/13/2025 4:13 PM EDTThis note is in progress. Images from the original note were not included. [facility] Inpatient NephrologyConsult Note Impression and Plan / Recommendations ESRD: --patient previously on HD at [facility] until she moved back [facility] --has not had HD in about 3 weeks; was on HD in [place] --previously cared for by our practice --HD [...] female who was previously on HD at [facility] then [facility] and recently moved back to the area but has not had HD now x3 weeks per patient. She has a left arm AVF that looks normal with good bruit and thrill She is living with her daughter in [place], [place]. She had previously livedin [place] where she was going to dialysis in [place]. Evidently she did not have transportation from [place] [facility], [facility]. [facility] still [...] -- -- 100 % 01/13/25 1328 (!) 185100 97.6 F (36.4 C) Oral 86 19 96 % [id number] normocephalic, atraumatic, sclera and conjunctiva clear,PERRL, EOMI, [...] EK EKG 12 LEAD Result Date: 01/13/2025 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 Mike Carter MD, [facility] Please feel free to reach out via [employer] Secure Chat [phone] [email or web address] BLOOD GAS, VENOUS STAT 01/13/2025 2:03 PM EDT COMPREHENSIVE METABOLIC PANEL STAT 01/13/2025 1:35 PM EDT CBC WITH DIFF STAT 01/13/2025 1:35 PM EDT EK EKG 12 LEAD STAT 01/13/2025 1:30 PM EDT from Last 3 Months Results * ECG AND WAVEFORMS - TELEMETRY (01/19/2025 7:00 AM EDT) Only the most recent of13 resultswithin the time period is included. ECG INTERPRET Sinus Bradycardia [facility] Comment:1st degree 01/19/2025 7:00 AM EDT Narrative [facility] - 01/19/2025 9:02 AM EDT ROUTINE SDP UT 0.22 QRS 0.11 RR 1.10 QT 0.49 See Clinical Report link for waveform capture us Unknown Provider POINT OF CARE CARDIOLOGY Final Result Performing Organization Address [facility] Co de Phone Number [facility] [address] [phone] * EXTRA MINT GREEN LI (01/18/2025 6:08 AM EDT) Blood VENOUS BLOOD / Unknown Venipuncture / Unknown 01/18/2025 6:08 AM EDT 01/18/2025 6:58 AM EDT Mathieu Belcher MD CHEMISTRY ORDERABLES Final Result Performing Organization Address [facility] de Phone Number [address] [address] * PLATELET COUNT (01/18/2025 6:08 AM EDT) Only the most recent of2 resultswithin the time period is included. Platelet 228 155 - 369 x10(3)/mcL 01/18/2025 6:50 AM EDT [facility] MPV 9.6 8.8 - 12.5 fL 01/18/2025 6:50 AM EDT [facility] Blood VENOUS BLOOD / Unknown Venipuncture / Unknown 01/18/2025 6:08 AM EDT 01/18/2025 6:47 AM EDT Mathieu Belcher MD HEMATOLOGY ORDERABLES [place] l Result Performing Organization Address [facility] Co de Phone Number [facility] [address] [place] [address] * (ABNORMAL) CBC WITH DIFF (01/18/2025 6:08 AM EDT) Only the most recent of2 resultswithin the time period is included. WBC 5.6 3.7 - 10.3 x10(3)/mcL 01/18/2025 7:43 AM EDT [facility] RBC 3.12(L) 3.90 - 5.20 x10(6)/mcL 01/18/2025 7:43 AM EDT [facility] Hgb 8.5(L) 11.2 - 15.7 g/dL 01/18/2025 7:43 AM EDT [facility] Hct 28.7(L) 34.0 - 45.0 % 01/18/2025 7:43 AM EDT [facility] MCV 92.2 80.0 - 100.0 fL 01/18/2025 7:43 AM EDT [facility] MCH 27.9 26.0 - 34.0 pg 01/18/2025 7:43 AM EDT [facility] MCHC 30.3(L) 30.7 - 35.5 g/dL 01/18/2025 7:43 AM EDT [facility] RDW 15.9(H) <=14.9 % 01/18/2025 7:43 AM EDT [facility] Platelet 228 155 - 369 x10(3)/mcL 01/18/2025 7:43 AM EDT [facility] MPV 9.6 8.8 - 12.5 fL 01/18/2025 7:43 AM EDT [facility] Neut Percent 70.6 % 01/18/2025 7:43 AM EDT [facility] Comment:Neutrophils equals s egs plus bands Imm Gran% 0.4 % 01/18/2025 7:43 AM EDT [facility] Comment:Automated count of m etamyelocytes, myelocytes and promyelocytes. Lymph Percent 16.5 % 01/18/2025 7:43 AM EDT [facility] [place] Percent 9.3 % 01/18/2025 7:43 AM EDT [facility] Eos Percent 2.3 % 01/18/2025 7:43 AM EDT [facility] Baso Percent 0.9 % 01/18/2025 7:43 AM EDT [facility] Neut # 4.0 1.6 - 6.1 x10(3)/[facility] 01/18/2025 7:43 AM EDT [facility] Comment:Neutrophils equals s egs plus bands IMMGRAN# 0.0 0.0 - 0.1 x10(3)/[facility] 01/18/2025 7:43 AM EDT [facility] Comment:Automated count of m etamyelocytes, myelocytes and promyelocytes. An absolute IG <0.1 is reported as 0.0. Lymph # 0.9(L) 1.2 - 3.9 x10(3)/[facility] 01/18/2025 7:43 AM EDT [facility] [place] # 0.5 0.3 - 0.9 x10(3)/[facility] 01/18/2025 7:43 AM EDT [facility] Eos# 0.1 0.0 - 0.5 x10(3)/[facility] 01/18/2025 7:43 AM EDT [facility] Baso # 0.1 0.0 - 0.1 x10(3)/[facility] 01/18/2025 7:43 AM EDT [facility] Blood VENOUS BLOOD / Unknown Venipuncture / Unknown 01/18/2025 6:08 AM EDT 01/18/2025 6:47 AM EDT us Mike Carter MD HEMATOLOGY ORDERABLES Final Res ult [facility] [address] [place] [address] * (ABNORMAL) RENAL FUNCTION PANEL (01/18/2025 6:08 AM EDT) Sodium 138 136 - 145 mmol/L 01/18/2025 7:37 AM EDT [facility] Potassium 4.0 3.5 - 5.0 mmol/L 01/18/2025 7:37 AM EDT [facility] Chloride 102 98 - 107 mmol/L 01/18/2025 7:37 AM EDT [facility] Total CO2 25 22 - 29 mmol/L 01/18/2025 7:37 AM EDT [facility] Anion Gap 11 7 - 16 mmol/L 01/18/2025 7:37 AM EDT [facility] Calcium 8.6 8.6 - 10.4 mg/dL 01/18/2025 7:37 AM EDT [facility] Glucose Lvl 67(L) 70 - 99 mg/dL 01/18/2025 7:37 AM EDT [facility] BUN 22(H) 6 - 20 mg/dL 01/18/2025 7:37 AM EDT [facility] Creatinine 5.76(H) 0.51 - 1.30 mg/dL 01/18/2025 7:37 AM EDT [facility] Albumin 2.8(L) 3.5 - 5.2 gm/dL 01/18/2025 7:37 AM EDT [facility] Phosphorus 6.2(H) 2.5 - 4.5 mg/dL 01/18/2025 7:37 AM EDT [facility] eGFR (CKD-EPIcr 2020) 8(L) >=60 mL/min/1.7 3 m2 01/18/2025 7:37 AM EDT [facility] Comment:Estimated GFR was ca lculated using the CKD-EPIcr (2020) equation refit without race. The equation is recommended by the National Kidney Foundation - [place] [employer] of Nephrology Task Force. Blood VENOUS BLOOD / Unknown Venipuncture / Unknown 01/18/2025 6:08 AM EDT 01/18/2025 6:58 AM EDT us Mike Carter MD CHEMISTRY ORDERABLES Final Resu lt [facility] [address] [place] [address] * (ABNORMAL) CBC (01/16/2025 6:13 AM EDT) Only the most recent of3 resultswithin the time period is included. WBC 5.3 3.7 - 10.3 x10(3)/mcL 01/16/2025 7:19 AM EDT [facility] RBC 3.20(L) 3.90 - 5.20 x10(6)/mcL 01/16/2025 7:19 AM EDT [facility] Hgb 8.6(L) 11.2 - 15.7 g/dL 01/16/2025 7:19 AM EDT [facility] Hct 28.5(L) 34.0 - 45.0 % 01/16/2025 7:19 AM EDT [facility] MCV 89.1 80.0 - 100.0 fL 01/16/2025 7:19 AM EDT [facility] MCH 26.9 26.0 - 34.0 pg 01/16/2025 7:19 AM EDT [facility] MCHC 30.2(L) 30.7 - 35.5 g/dL 01/16/2025 7:19 AM EDT [facility] RDW 15.8(H) <=14.9 % 01/16/2025 7:19 AM EDT [facility] Platelet 268 155 - 369 x10(3)/mcL 01/16/2025 7:19 AM EDT [facility] MPV 9.4 8.8 - 12.5 fL 01/16/2025 7:19 AM EDT [facility] Blood VENOUS BLOOD / Unknown Venipuncture / Unknown 01/16/2025 6:13 AM EDT 01/16/2025 7:10 AM EDT us Mathieu Belcher MD HEMATOLOGY ORDERABLES [place] l Result [facility] [address] [facility] [place] [address] * (ABNORMAL) BASIC METABOLIC PANEL (01/16/2025 6:13 AM EDT) Only the most recent of3 resultswithin the time period is included. Sodium 136 136 - 145 mmol/L 01/16/2025 7:44 AM EDT [facility] Potassium 3.9 3.5 - 5.0 mmol/L 01/16/2025 7:44 AM EDT [facility] Chloride 101 98 - 107 mmol/L 01/16/2025 7:44 AM EDT [facility] Total CO2 24 22 - 29 mmol/L 01/16/2025 7:44 AM EDT [facility] Anion Gap 11 7 - 16 mmol/L 01/16/2025 7:44 AM EDT [facility] Calcium 8.5(L) 8.6 - 10.4 mg/dL 01/16/2025 7:44 AM EDT [facility] Glucose Lvl 62(L) 70 - 99 mg/dL 01/16/2025 7:44 AM EDT [facility] BUN 9 6 - 20 mg/dL 01/16/2025 7:44 AM EDT [facility] Creatinine 2.83(H) 0.51 - 1.30 mg/dL 01/16/2025 7:44 AM EDT [facility] eGFR (CKD-EPIcr 2020) 19(L) >=60 mL/min/1.7 3 m2 01/16/2025 7:44 AM EDT [facility] Comment:Estimated GFR was ca lculated using the CKD-EPIcr (2020) equation refit without race. The equation is recommended by the National Kidney Foundation - [place] [employer] of Nephrology Task Force. Blood VENOUS BLOOD / Unknown Venipuncture / Unknown 01/16/2025 6:13 AM EDT 01/16/2025 7:13 AM EDT us Mathieu Belcher MD CHEMISTRY ORDERABLES Final Result [facility] [address] [place] [address] * SCANNED EKG (01/14/2025 9:19 AM EDT) Anatomical Region Laterality Modality Other 01/14/2025 9:19 AM EDT us Unknown Provider IMG ECG ORDERABLES Final Result * (ABNORMAL) PARATHYROID HORMONE INTACT (01/14/2025 8:20 AM EDT) PTH Intact 156.00(H) 15.00 - 65.00 pg/mL 01/14/2025 11:42 AM EDT [facility] [employer] Blood VENOUS BLOOD / Unknown Venipuncture / Unknown 01/14/2025 8:20 AM EDT 01/14/2025 8:20 AM EDT Narrative [employer] [facility] - 01/14/2025 11:42 AM EDT Intact PTH [...] Carter MD CHEMISTRY ORDERABLES Final Resu lt [facility] [employer] [facility] [address] , [place] [address] * (ABNORMAL) IRON+TIBC (01/14/2025 5:43 AM EDT) Iron 30 30 - 160 mcg/dL 01/14/2025 12:09 PM EDT [facility] [employer] Transferrin 104(L) 200 - 360 mg/dL 01/14/2025 12:09 PM EDT [facility] [employer] [facility] Trans[employer]in Saturation 21 20 - 50 % 01/14/2025 12:09 PM EDT [facility] [employer] [facility] TIBC 146(L) 250 - 400 mcg/dL 01/14/2025 12:09 PM EDT [facility] [employer], [facility] Blood VENOUS BLOOD / Unknown Venipuncture / Unknown 01/14/2025 5:43 AM EDT 01/14/2025 6:26 AM EDT Mike Carter MD CHEMISTRY ORDERABLES Final Resu lt Performing Organization Address [facility]/ZIP Co de Phone Number [facility] [address] [phone] [facility] [employer] [address] , [place] [address] * (ABNORMAL) FERRITIN (01/14/2025 5:43 AM EDT) Ferritin 954(H) 30 - 150 ng/mL 01/14/2025 12:09 PM EDT [facility], [facility] Comment:The lower threshold of 30 is not statistically defined, nor internally validated. The threshold has been updated to more closely reflect a physiologic basis. Alissa Osuna, et al. Physiologically based serum ferritin thresholds for iron deficiency in children and non- women: a [place] National Health and Nutrition Examination Surveys (NHANES) serial cross-sectional study. Lancet Haematol 2021;8:e572-82. Blood VENOUS BLOOD / Unknown Venipuncture / Unknown 01/14/2025 5:43 AM EDT 01/14/2025 6:26 AM EDT Narrative [facility] - 01/14/2025 12:09 PM EDT Ingestion of taj doses of biotin (>5 mg/day) taken within 8 hours of drawing blood sample can interfere with this immunoassay test. Mike Carter MD CHEMISTRY ORDERABLES Final Resu lt Performing Organization Address City/[facility]/ZIP Co de Phone Number [facility] [address] [place] [address] [facility], [address] , [place] [address] * CT LUMBAR SPINE WO CONTRAST (01/13/2025 [...] please contactthe office of the ordering clinician. Mathieu Belcher MD [facility] CT ORDERABLES Final Re sult * HEPATITIS B CORE AB TOTAL (01/13/2025 5:01 PM EDT) Hep B Core Total Non-Reacti ve Non-React mar 01/13/2025 9:05 PM EDT [employer] Comment:No antibodies to HBc detected. Does not exclude possibility of exposure to HBV. Blood VENOUS BLOOD / Unknown Venipuncture / Unknown 01/13/2025 5:01 PM EDT 01/13/2025 5:38 PM EDT Narrative [facility] 01/13/2025 9:05 PM EDT Test performed using [employer] electrochemiluminescence immunassay (ECLIA). Mike Carter MD IMMUNOLOGY ORDERABLES Final Res ult Performing Organization Address [facility] Co de Phone Number [address], [place] [address] * HCV ANTIBODY SCREEN W/ REFLEX (01/13/2025 5:01 PM EDT) Hep C Ab Non-Reacti ve Non-React mar 01/13/2025 8:59 PM EDT [facility] [employer] [facility] Comment:No antibodies to HCV detected. Does not exclude possibility of exposure to HCV. Blood VENOUS BLOOD / Unknown Venipuncture / Unknown 01/13/2025 5:01 PM EDT 01/13/2025 5:38 PM EDT Narrative [facility] - 01/13/2025 8:59 PM EDT Test performed using [employer] electrochemiluminescence immunassay (ECLIA). Mike Carter MD HEMATOLOGY ORDERABLES Final Res ult Performing Organization Address [facility]/ZIP Co de Phone Number [address], [place] [address] * HEPATITIS B SURFACE ANTIBODY (01/13/2025 5:01 PM EDT) Hep Bs Ab 238.00 mIU/mL 01/13/2025 9:05 PM EDT [facility] [employer] [facility] Comment: < 10 mIU/mL - Non-reactive (Result not consistent with protective immunity.) >= 10 mIU/mL - Reactive (Result consistent with protective immunity.) Blood VENOUS BLOOD / Unknown Venipuncture / Unknown 01/13/2025 5:01 PM EDT 01/13/2025 5:38 PM EDT Narrative [facility] - 01/13/2025 9:05 PM EDT Test performed using [employer] electrochemiluminescence immunassay (ECLIA). us Mike Carter MD IMMUNOLOGY ORDERABLES Final Res ult Performing Organization Address [facility]/ZIP Co de Phone Number [facility] [employer] [address] , [place] [address] * HEPATITIS B SURFACE ANTIGEN (01/13/2025 5:01 PM EDT) Hep Bs Ag Non-Reacti ve Non-React mar 01/13/2025 9:05 PM EDT [employer] Comment:HBsAg not detected. Does not exclude possibility of exposure to HBV. Blood VENOUS BLOOD / Unknown Venipuncture / Unknown 01/13/2025 5:01 PM EDT 01/13/2025 5:38 PM EDT Narrative [facility] [employer] [facility] - 01/13/2025 9:05 PM EDT Test performed using [employer] boarding passs electrochemiluminescence immunassay (ECLIA). us Mike Carter MD CHEMISTRY ORDERABLES Final Resu lt Performing Organization Address [facility] Co de Phone Number [facility] [employer] [address] , [place] [address] * XR LUMBAR SPINE AP AND LATERAL [...] please contactthe office of the ordering clinician. Result [facility] us Dennis Gracia MD [facility] DIAGNOSTIC IMAGING ORDERA BLES Final Result * XR CHEST PA AND LATERAL (01/13/2025 [...] the ordering clinician. us Dennis Gracia MD [facility] DIAGNOSTIC IMAGING ORDERA BLES Final Result * (ABNORMAL) BLOOD GAS, VENOUS (01/13/2025 2:03 PM EDT) pH Venous 7.40 7.32 - 7.42 pH 01/13/2025 2:10 PM EDT [facility] pCO2 Venous 37(L) 41 - 51 mmHg 01/13/2025 2:10 PM EDT [facility] pO2 Venous 143(H) 25 - 40 mmHg 01/13/2025 2:10 PM EDT [facility] Comment:Interpret with cauti on. Not recommended to evaluate patient's oxygenation status. Base Excess [place] -2.0 mmol/L 2:10 PM EDT [facility] Hco3 Venous 22.5(L) 24.0 - 28.0 mmol/L 01/13/2025 2:10 PM EDT [facility] CO2 Total [place] 21(L) 25 - 29 mmol/L 01/13/2025 2:10 PM EDT [facility] O2 Sat. Venous 99.9(H) 40.0 - 70.0 % 01/13/2025 2:10 PM EDT [facility] Inspired O2 2L 01/13/2025 2:10 PM EDT [facility] Blood VENOUS BLOOD / Unknown Venipuncture / Unknown 01/13/2025 2:03 PM EDT 01/13/2025 2:06 PM EDT us Dennis Gracia MD CHEMISTRY ORDERABLES Final Re sult [facility] [address] [place] [address] * (ABNORMAL) COMPREHENSIVE METABOLIC PANEL (01/13/2025 1:35 PM EDT) Pathologist [facility] Sodium 136 136 - 145 mmol/L 01/13/2025 1:56 PM EDT [facility] Potassium 4.4 3.5 - 5.0 mmol/L 01/13/2025 1:56 PM EDT [facility] Chloride 102 98 - 107 mmol/L 01/13/2025 1:56 PM EDT [facility] Total CO2 21(L) 22 - 29 mmol/L 01/13/2025 1:56 PM T [facility] Anion Gap 13 7 - 16 mmol/L 01/13/2025 1:56 PM T [facility] Calcium 8.7 8.6 - 10.4 mg/dL 01/13/2025 1:56 PM T [facility] Glucose Lvl 79 70 - 99 mg/dL 01/13/2025 1:56 PM T [facility] BUN 43(H) 6 - 20 mg/dL 01/13/2025 1:56 PM [facility] Creatinine 5.65(H) 0.51 - 1.30 mg/dL 01/13/2025 1:56 PM T [facility] Albumin 3.2(L) 3.5 - 5.2 gm/dL 01/13/2025 1:56 PM T [facility] Total Protein 7.0 6.4 - 8.3 gm/dL 01/13/2025 1:56 PM T [facility] Bili Total 0.3 0.2 - 1.3 mg/dL 01/13/2025 1:56 PM T [facility] ALT 8 <=41 U/L 01/13/2025 1:56 PM T [facility] AST 14 <=40 U/L 01/13/2025 1:56 PM T [facility] Alk Phos 99 36 - 123 U/L 01/13/2025 1:56 PM T [facility] eGFR (CKD-EPIcr 2020) 8(L) >=60 mL/min/1.7 3 m2 01/13/2025 1:56 PM T [facility] Comment:Estimated GFR was ca lculated using the CKD-EPIcr (2020) equation refit without race. The equation is recommended by the National Kidney Foundation - [place] Society of Nephrology Task Force. Blood VENOUS BLOOD / Unknown Venipuncture / Unknown 01/13/2025 1:35 PM EDT 01/13/2025 1:38 PM EDT us Dennis Gracia MD CHEMISTRY ORDERABLES Final Re sult [facility] [address] [place] [address] * EK EKG 12 LEAD (01/13/2025 1:30 PM EDT) Anatomical Region Laterality Modality Electrocardiogra phy 01/13/2025 1:35 PM EDT Impressions 01/13/2025 3:47 PM EDT [facility] Test Date: 2025-01-13 Pat Name: DIVYA BROWN Department: DEPID Room: [facility] Gender: Female [employer] Super[employer]: karlos : 1965 Requested By: DENNIS Fierro Order Number: [id number] Reading MD: Christopher Curiel MD Measurements Intervals [place] Rate: 78 P: 110 UT: 166 QRS: -8 QRSD: 85 T: 108 QT: 373 QTc: 425 Interpretive Statements SINUS RHYTHM POSSIBLE ANTERIOR MYOCARDIAL INFARCTION PROBABLY OLD Electronically Signed On 01-13-2025 15:47:10 EDT by Christopher Curiel MD Narrative Procedure Note Christopher Curiel MD - 01/13/2025 [facility] Date: 2025-01-13 Pat Name: DIVYA GIBSONAS Department: DEPID Room: [facility] Gender: Female [employer] Supervisor: [facility] : 1965 Requested By: DENNIS Fierro Order Number: [id number] Donald MD: Christopher Curiel MD Measurements Intervals [place] Rate: 78 P: 110 UT: 166 QRS: -8 QRSD: 85 T: 108 QT: 373 QTc: 425 Interpretive Statements SINUS RHYTHM POSSIBLE ANTERIOR MYOCARDIAL INFARCTION PROBABLY OLD Electronically Signed On 01-13-2025 15:47:10 EDT by Christopher Curiel MD us Dennis Gracia MD IMG ECG ORDERABLES Final Resu lt from Last 3 Months Insurance [facility] [employer] [facility] [place] Member Subscriber Plan / Payer (Ef fective 2024-Present) Name:Divya Brown Relation to Subscriber:Self Name:Divya Brown Payer ID:Not on file Group ID:[id number] Type:Not on file Address: [address] [id number] Advance Directives For more information, please contact: [phone] * Full Code (Latest Code Status on File) Date Activated Date Inactivated Comments 01/13/2025 4:16 PM 01/19/2025 6:27 PM * Full Code Date Activated Date Inactivated Comments 04/03/2021 12:02 AM 04/06/2021 8:42 PM Care Teams Technical Sales Representative Relationship Specialty Start Date End Date Nore[place] [address] PCP - General Family Medicine 10/30/24 Jovi Carter Ud, MD [address] [id number] Internal Medicine-Nephrology 04/11/21 Roger Talley MD [address] [place] [address] [address] [place], [place] [phone] Physician Internal Medicine-Nephrology 05/01/21
--- OUTSIDE RECORDS SUMMARY | 2025-02-01 11:26 | XMS_ITS | Encounter Summary ---
Author Organization [place] [address] Care Team Providers Care Perfume Compounder Name Role Phone Jovi Carter Ud, MD Unavailable [phone] Roger Talley MD Unavailable Noreen Ortega DO Primary Care Provider [phone] Reason for Visit * Reason Onset Date Comments Follow-up 01/22/2025 Encounter Details Date Type Department Care Team (Late Contact Info) Description 01/22/2025 Telephone CLINICAL OUTCOMES [address] [facility] [place] [address] Anuja Mancia, OLVIN Follow-up Social History Tobacco Use Types Packs/Day Years Used Date Smoking Tobacco: Former Cigarettes 0.2 37.3 0 04/05/1985 - 07/29/2022 Smokeless Tobacco: Never Alcohol Use Standard Drinks/Week Comments Never 0 (1 standard drink = 0.6 oz pur e alcohol) [facility] Utilities Answer Date Recorded In the past 12 months has [employer] electric, gas, oil, or water company threatened [...] Date Recorded PHQ-2 Total Score 0 01/16/2025 [facility] [place] [facility] Occupat ional [facility] - Occupational Stress [...] money to get more. Never true 01/16/2025 [facility] IP Transportation Answer D ate Recorded In [...] on file documented as of this encounter Functional Status * Is the person deaf or does he/she have serious difficulty hearing? Answer Date of Assessment Author No 04/06/2021 2:46 PM Tracy Frank RN * Is the person blind or does he/she have serious difficulty seeing even when wearing glasses? Answer Date of Assessment Author No 04/06/2021 2:46 PM Tracy Frank RN * Does this person have serious difficulty walking or climbing stairs? Answer Date of Assessment Author No 04/06/2021 2:46 PM Tracy Frank RN * Does this person have difficulty dressing or bathing? Answer Date of Assessment Author No 04/06/2021 2:46 PM Tracy Frank RN * Because of a physical, mental or emotional condition, does this person have difficulty doing errands alone such as visiting a doctor's office or shopping? Answer Date of Assessment Author No 04/06/2021 2:46 PM EDT Tracy Grewal RN documented as of this encounter Mental Status * Because of a physical, mental or emotional condition, does this person have serious difficulty concentrating, remembering or making decisions? Answer Entry Date Author No 04/06/2021 2:46 PM EDT Tracy Grewal RN documented in this encounter Miscellaneous Notes * Telephone Encounter - Lashawn Gloria RN - 01/27/2025 1:49 PM EDT 7-2 no answer. HD MWF * Telephone Encounter - Anuja Mancia RN - 01/22/2025 2:15 PM EDT 6.27 No Answer documented in this encounter Plan of Treatment Upcoming Encounters Date Type Department Care Team (Late st Contact Info) Description 02/09/2025 1:15 PM EDT Office Visit [facility] Nephrology [place] [address] [facility] [address] [place] [address] Deborah Li MD [address] [facility] [address] [place] [address] documented as of this encounter Goals Goal Patient Goal Type Associated Problems Recent Progress Patient-Stated? Author Blood Pressure < 140/90 Blood Pressure 142/73(2024 12:30 PM EDT) No Yakelin Sutton CCMA Maintain a healthy diet, exercise regularly and maintain an ideal body weight General No Yakelin Sutton CCMA Stay Tobacco Free Lifestyle No Yakelin Sutton CCMA documented as of this encounter Visit Diagnoses Not on filedocumented in this encounter Care Teams Perfume Compounder Relationship Specialty Start Date End Date Noreen Ortega DO [address] [place] [address] PCP - General Family Medicine 4/4/25 Jovi Carter Ud, MD [address] [place] [id number] Internal Medicine-Nephrology 04/11/21 Roger Talley MD [address] [place] [address] Physician Internal Medicine-Nephrology 05/01/21 documented as of this encounter
--- OUTSIDE RECORDS SUMMARY | 2025-02-01 11:26 | XMS_ITS | Encounter Summary ---
Author Organization [facility] [place] [address] Care Team Providers Care Production Quality Manager Name Role Phone Jovi Carter Ud, MD Unavailable [phone] Roger Talley MD Unavailable Noreen Ortega DO Primary Care Provider [phone] Encounter Details Date Type Department Care Team (Latest Contact Info) Description 01/13/2025 Travel Social History Tobacco Use Types Packs/Day Years Used Date Smoking Tobacco: Former Cigarettes 0.2 37.3 0 04/05/1985 - 07/29/2022 Smokeless Tobacco: Never Alcohol Use Standard Drinks/Week Comments Never 0 (1 standard drink = 0.6 oz pur e alcohol) AUDIT-C Answer Date Recorded Q1: How often do you have a drink containing alc ohol? Never 03/18/2021 Average Number of Drinks Not on file 021 Frequency of Binge Drinking Not on file 02/27 PHQ-2 Answer Date Recorded PHQ-2 Total Score 0 10/30/2024 Comments No Sex and Gender Information Value Date Recorded Sex Assigned at Not on file Legal Sex Female 10:29 PM EDT Gender Identity Not on file Sexual Orientation Not on file documented as of this encounter Functional Status * Alcohol Screening Score Answer Date of Assessment Author 0 01/13/2025 5:00 PM EDT Alida Zhou RN * Drug Screening Score Answer Date of Assessment Author 0 01/13/2025 5:00 PM EDT Alida Zhou, OLVIN * Question Answer Date of Assessment Author [...] 2:46 PM EDT Tracy Grewal RN * Suicide Severity Rating Answer Date of Assessment Author No Risk 01/13/2025 1:28 PM EDT Tiffany Silva RN * [place] Suicide Severity Rating Scale (Q shift for [...] Tracy Grewal RN documented in this encounter Plan of Treatment Upcoming Encounters Date Type Department Care Team (Late st Contact Info) Description 02/09/2025 1:15 PM EDT Office Visit [facility] Nephrology [place] [address] [place] [address] Deborah Li MD [address] [facility] [address] [place] [address] documented as of this encounter [...] Diagnoses Not on filedocumented in this encounter Additional Health Concerns Assessment Noted Time PHQ-9 Depression Total Score: 1 10/31/19 25 8:00 AM EDT documented as of this encounter Care Teams Production Quality Manager Relationship Specialty Start Date End Date Noreen Ortega [place] [address] PCP - General Family Medicine 10/30/24 Jovi Carter Ud, MD [address] [place] [address] Internal Medicine-Nephrology 04/11/21 Roger Talley MD [address] [facility] [address] [place] [address] Physician Internal Medicine-Nephrology 05/01/21 documented as of this encounter
--- OUTSIDE RECORDS SUMMARY | 2025-02-01 11:27 | XMS_ITS | Clinical Summary ---
Author Organization [employer] ([place], [place], [place], [place]) Address [address] [place] [address] Care Team Providers Care Weigher Production Name Role Phone Unavailable Primary Care Provider Unavailabl e Social History Tobacco Use Types Packs/Day Years Used Date Smoking Tobacco: Never Assessed Comments Unknown Sex and Gender Information Value Date Recorded Sex Assigned at Female 01/23/2022 8:37 PM CDT Legal Sex Female 8:37 PM CDT Gender Identity Female 01/23/2022 8:37 PM CDT Sexual Orientation Not on file Plan of Treatment Not on file
--- OUTSIDE RECORDS SUMMARY | 2025-02-01 11:27 | XMS_ITS | Encounter Summary ---
Author Organization [employer] ([place], [place], [place], [place]) Address [address] [place] [address] Care Team Providers Care Silk Top Hat Body Maker Name Role Phone Unavailable Primary Care Provider Unavailabl e Encounter Details Date Type Department Care Team (Late st Contact Info) Description 07/25/2019 Transcribed Document [facility] [place] [address] [place] [address] ProviderRadha MD [address] [place] [address] Social History Tobacco Use Types Packs/Day Years Used Date Smoking Tobacco: Never Assessed Comments Unknown Sex and Gender Information Value Date Recorded Sex Assigned at Female 01/23/2022 8:37 PM CDT Legal Sex Female 8:37 PM CDT Gender Identity Female 01/23/2022 8:37 PM CDT Sexual Orientation Not on file documented as of this encounter Miscellaneous Notes * Cerner Conversion Note - Historical ProviderMD - 07/25/2019 6:03 AM SECONDARY SCHOOL TEACHER Electronically signed by Jc [facility] Conversion Pretzel Twister Cerner at 11/13/2022 9:28 PM CDT documented in this encounter Plan of Treatment Not on file documented as of this encounter Visit Diagnoses Not on filedocumented in this encounter
--- OUTSIDE RECORDS SUMMARY | 2025-02-01 11:27 | XMS_ITS | Encounter Summary ---
Author Organization [place] [address] Care Team Providers Care Product Strategy Director Name Role Phone Jovi Carter Ud, MD Unavailable [phone] Roger Talley MD Unavailable Noreen Ortega DO Primary Care Provider + [phone] Reason for Visit * Reason Onset Date Comments CM- Telephonic Outreach 01/20/2025 Hospital Follow Up 01/20/2025 Encounter Details Date Type Department Care Team (Late st Contact Info) Description 01/20/2025 Patient Outreach SEP Care Managment [address] App[place]ment [place] [address] Shahana Lew, RN CM- Telephonic Outreach; Hospital Follow Up Social History Tobacco Use Types Packs/Day Years Used Date Smoking Tobacco: Former Cigarettes 0.2 37.3 0 04/05/1985 - 07/29/2022 Smokeless Tobacco: Never Alcohol Use Standard Drinks/Week Comments Never 0 (1 standard drink = 0.6 oz pur e alcohol) [facility] Utilities Answer Date Recorded In the past 12 months has [employer], gas, oil, or water [employer] threatened to shut off services in your [...] Date Recorded PHQ-2 Total Score 0 01/16/2025 [facility] - Occupational Stress Questionnaire Answer Date Recorded [...] money to get more. Never true 01/16/2025 [facility] IP Transportation Answer D ate Recorded In [...] Tracy Grewal RN documented in this encounter Progress Notes * Shahana Lew RN - 01/20/2025 2:14 PM EDT Patient Outreach First attempt to contact patient regarding hospital follow up contact. Outcome: Unable to reach patient by phone Voicemail box is full/not set up Patient can return call to Shahana Lew [phone] documented in this encounter Plan of Treatment Upcoming Encounters Date Type Department Care Team (Late st Contact Info) Description 02/09/2025 1:15 PM EDT Office Visit [facility] Nephrology [place] [address] [facility] [address] [place] [address] Deborah Li MD [address] [facility] [address] [place] [address] documented as of this encounter [...] on filedocumented in this encounter Care Teams Product Strategy Director Relationship Specialty Start Date End Date Noreen Ortega DO [address] [place] [address] PCP - General Family Medicine 10/30/24 Jovi Carter Ud, MD [address] [place], [place] [phone] Internal Medicine-Nephrology 04/11/21 Roger Talley MD [address] [facility] [address] [place] [id number] Physician Internal Medicine-Nephrology 05/01/21 documented as of this encounter
--- OUTSIDE RECORDS SUMMARY | 2025-02-01 11:27 | XMS_ITS | Encounter Summary ---
Author Organization [employer] ([place], [place], [place], [place]) Address [address] [place] [address] Care Team Providers Care Box Covering Machine Operator Name Role Phone Unavailable Primary Care Provider Unavailabl e Encounter Details Date Type Department Care Team (Late st Contact Info) Description 07/25/2019 Transcribed Document [facility] [place] [facility] [place] [address] ProviderRadha MD [address] [place] [address] Social History Tobacco Use Types [...] Conversion Note - Historical ProviderMD - 07/25/2019 5:41 AM PRODUCT CRAFTSMAN ED Triage Entered On: 07/25/2019 5:45 EST Performed On: 07/25/2019 5:42 EST by Heriberto Marie RN ED Triage Across the Room Chief Complaint : pt arrives to ed via ems with c/o BLE edema and bruising. Been out of medications x 1 wk due to not being able to afford them. hx of CHF, renal failure, DM. FSBS 116. Triage Date/Time : 07/25/2019 5:42 EST Heriberto Marie RN - 07/25/2019 5:42 EST DCP GENERIC CODE Tracking Acuity : 3 - Urgent Tracking Group : [facility] ED Heriberto Marie RN - 07/25/2019 5:42 EST Mode of Arrival : Stretcher Transported to ED by : Ambulance/ALS EMS Service : [facility] To Room Via : Stretcher Accompanied By : Unaccompanied ED Vital Signs : Document Height & Weight : Document ED Allergies : Document ED Reason for Visit : Document Tetanus Immunization : Less than 5 years Heriberto Marie RN - 07/25/2019 5:42 EST Infectious Disease History Infectious Disease History : Chicken pox/Shingles, Influenza Fever/Chills Last 48 Hours : No Travel To Regions with Travel Advisories : No Travel Outside [place] Within Last 30 Days : No Contact With Traveler to Advisory Region : No Tuberculosis Symptoms : None Heriberto Marie RN - 07/25/2019 5:42 EST Vital Signs ED Temperature Source : Oral Temperature Mode : Fahrenheit Temperature, Fahrenheit : 97.7 Deg F Clinical Temperature, C : 36.5 Deg C Oxygen Therapy Mode : Room air Peripheral Pulse Rate : 103 bpm (HI) Respiratory Rate : 18 Breaths/Min Systolic Blood Pressure : 230 mmHg (HI) Diastolic Blood Pressure : 126 mmHg (HI) Oxygen Saturation : 95 % Heriberto Marie RN - 07/25/2019 5:42 EST Allergy (As Of: 07/25/2019 05:45:59 EST) Allergies (Active) No Known Allergies Estimated Onset Date: Unspecified ; Created By: Margoth Ly RN; Reaction Status: Active ; Category: Drug ; Substance: No Known Allergies ; Type: Allergy ; Updated By: Margoth Ly RN; Reviewed Date: 07/25/2019 5:42 EST No Known Medication Allergies Estimated Onset Date: Unspecified ; Created By: Yvonne Perea RN; Reaction Status: Active ; Category: Drug ; Substance: No Known Medication Allergies ; Type: Allergy ; Updated By: Yvonne Perea RN; Reviewed Date: 07/25/2019 5:42 EST Diagnosis Control ED (As Of: 07/25/2019 05:45:59 EST) Problems(Active) Acute renal failure (ARF) (SNOMED CT :92305844 ) Name of Problem: Acute renal failure (ARF) ; Recorder: SHEFALI CALDWELL MD; Confirmation: Confirmed ; Classification: Medical ; Code: 07987590 ; Contributor System: [employer] ; Last Updated: 07/13/2019 14:11 EST ; Life Cycle Status: Active ; Responsible Provider: SHEFALI CALDWELL MD; Vocabulary: SNOMED CT At risk for sleep apnea (IMO :83826369 ) Name of Problem: At risk for sleep apnea ; Recorder: SYSTEM, SYSTEM; Confirmation: Confirmed ; Classification: Medical ; Code: 56786545 ; Last Updated: 06/02/2019 14:00 EST ; Life Cycle Date: 06/02/2019 ; Life Cycle Status: Active ; Vocabulary: IMO Diabetes (SNOMED CT :505688920 ) Name of Problem: Diabetes ; Recorder: Margoth Ly RN; Confirmation: Confirmed ; Classification: Patient Stated ; Code: 520057325 ; Contributor System: [employer] ; Last Updated: 07/09/2019 22:48 EST ; Life Cycle Date: 07/09/2019 ; Life Cycle Status: Active ; Vocabulary: SNOMED CT Heart failure (SNOMED CT :818735336 ) Name of Problem: Heart failure ; Recorder: Corinna Moses RN; Confirmation: Confirmed ; Classification: Patient Stated ; Code: 205691076 ; Contributor System: Power[employer] ; Last Updated: 06/03/2019 7:25 EST ; Life Cycle Date: 06/03/2019 ; Life Cycle Status: Active ; Vocabulary: SNOMED CT History of obstructive sleep apnea (IMO :11034473 ) Name of Problem: History of obstructive sleep apnea ; Recorder: SYSTEM, SYSTEM; Confirmation: Confirmed ; Classification: Medical ; Code: 95546321 ; Last Updated: 07/09/2019 22:59 EST ; Life Cycle Date: 07/09/2019 ; Life Cycle Status: Active ; Vocabulary: IMO HTN (hypertension) (SNOMED CT :2576615515 ) Name of Problem: HTN (hypertension) ; Recorder: Corinna Moses RN; Confirmation: Confirmed ; Classification: Patient Stated ; Code: 3986646619 ; Contributor System: PowerChart ; Last Updated: 06/03/2019 7:25 EST ; Life Cycle Date: 06/03/2019 ; Life Cycle Status: Active ; Vocabulary: SNOMED CT Kidney failure (SNOMED CT :02415473 ) Name of Problem: Kidney failure ; Recorder: Corinna Moses RN; Confirmation: Confirmed ; Classification: Patient Stated ; Code: 09630300 ; Contributor System: PowerChart ; Last Updated: 06/03/2019 7:25 EST ; Life Cycle Date: 06/03/2019 ; Life Cycle Status: Active ; Vocabulary: SNOMED CT Volume overload (SNOMED CT :30975670 ) Name of Problem: Volume overload ; Recorder: SHEFALI CALDWELL MD; Confirmation: Confirmed ; Classification: Medical ; Code: 54204636 ; Contributor System: [employer] ; Last Updated: 07/13/2019 14:11 EST ; Life Cycle Status: Active ; Responsible Provider: SHEFALI CALDWELL MD; Vocabulary: SNOMED CT Diagnoses(Active) Lower leg pain-swelling Date: 07/25/2019 ; Diagnosis Type: Reason For Visit ; Confirmation: Complaint of ; Clinical Dx: Lower leg pain-swelling ; Classification: Medical ; Clinical Service: Emergency medicine ; Code: PNED ; Probability: 0 ; Diagnosis Code: [id number] ED Height and Weight Height Source : Stated Height Entry Format : [place] Height, Feet : 5 ft(Converted to: 152 cm, 60 Inch) Height, Inches : 4 Inch(Converted to: 0 ft 4 Inch, 10.16 cm) Clinical Height : 162.56 cm Weight Source, ED : Critical estimated dosing weight Weight Entry Format : [place] Weight, Pounds : 161 lb Clinical Dosing Weight : 73.18 kg Body Surface Area (BSA) : 1.79 m2 Body Mass Index : 27.7 kg/m2 (HI) Metter Body Weight (IBW) : 54.3 kg Heriberto Marie RN - 07/25/2019 5:42 EST Electronically signed by Jc [facility] Conversion Treasury Manager Cerner at 11/13/2022 9:23 PM CDT documented in this encounter Plan of Treatment Not on file documented as of this encounter Visit Diagnoses Not on filedocumented in this encounter
--- OUTSIDE RECORDS SUMMARY | 2025-02-01 11:27 | XMS_ITS | Encounter Summary ---
Author Organization [employer] ([place], [place], [place], [place]) Address [address] [place] [address] Care Team Providers Care Typing Section Chief Name Role Phone Unavailable Primary Care Provider Unavailabl e Encounter Details Date Type Department Care Team (Late st Contact Info) Description 07/25/2019 Transcribed Document [facility] [place] Family Medicine [address] [place] [address] ProviderRadha MD [address] [place] [address] Social History Tobacco Use Types [...] Conversion Note - Historical ProviderMD - 07/25/2019 9:37 AM PERFORMING ARTIST ED Discharge Entered On: 07/25/2019 9:37 EST Performed On: 07/25/2019 9:37 EST by Radha Lowe RN Discharge Process Patient Disposition : Discharge Personal Belongings With Patient : Yes Patient Education Completed : Yes Teaching Evaluation : Verbalizes understanding IV Discontinued : Not applicable Nursing Documentation Completed : Yes Radha Lowe RN - 07/25/2019 9:37 EST ED Discharge Discharge To : Home with ambulatory/outpatient follow-up Mode Of Departure : Wheelchair Accompanied By : Unaccompanied Discharge Instructions Reviewed With, Opportunity For Questions Given : Patient Radha Lowe RN - 07/25/2019 9:37 EST Electronically signed by Jc [facility] Conversion Acid Changer Cerner at 11/13/2022 9:17 PM CDT documented in this encounter Plan of Treatment Not on file documented as of this encounter Visit Diagnoses Not on filedocumented in this encounter
--- OUTSIDE RECORDS SUMMARY | 2025-02-01 11:27 | XMS_ITS | Encounter Summary ---
Author Organization [employer] ([place], [place], [place], [place]) Address [address] [place] [address] Care Team Providers Care Vp Marketing Name Role Phone Unavailable Primary Care Provider Unavailabl e Encounter Details Date Type Department Care Team (Late st Contact Info) Description 07/25/2019 Transcribed Document [facility] [place] Family Medicine [address] [place] [address] ProviderRadha MD [address] [place] [address] Social History Tobacco Use Types Packs/Day Years Used Date Smoking Tobacco: Never Assessed Comments Unknown Sex and Gender Information Value Date Recorded Sex Assigned at Female 01/23/2022 8:37 PM CDT Legal Sex Female 8:37 PM CDT Gender Identity Female 01/23/2022 8:37 PM CDT Sexual Orientation Not on file documented as of this encounter Miscellaneous Notes * [employer]ner Conversion Note - Radha ProviderMD - 07/25/2019 5:41 AM MANAGER CARDIOVASCULAR ED Assessment Entered On: 07/25/2019 5:48 EST Performed On: 07/25/2019 5:46 EST by Heriberto Marie RN ED Quick Look Assessment Level of Consciousness : Alert, Awake Affect/Behavior : Appropriate, Calm, Cooperative Orientation : Oriented x 4 Heriberto Marie RN - 07/25/2019 5:46 EST ED General-Functional Assess Information Obtained From : Patient Communication Barrier : None Primary Language : Mongolian Any Spiritual/Cultural Needs or Requests : No Currently in Unsafe Situation : No Heriberto Marie RN - 07/25/2019 5:46 EST Social Habits Smoking Status : 5-9 cigarettes (between 1/4 to 1/2 pack)/day in last 30 days Smokeless Tobacco Status : Never Desires Tobacco Cessation Medication : No Reason for No Tobacco Cessation Medication : ED/procedural patient only Desires Tobacco Cessation Calc : 1 Heriberto Marie RN - 07/25/2019 5:46 EST Social History (As Of: 07/25/2019 05:48:29 EST) Tobacco: 5-9 cigarettes (between 1/4 to 1/2 pack)/day in last 30 days Smoking Status. Years of Use: 10. Packs/Tins Daily: .5. (Last Updated: 07/09/2019 22:50:21 EST by Margoth Ly, RN) Alcohol: Alcohol Use History No. (Last Updated: 07/09/2019 22:50:26 EST by Margoth Ly, RN) Substance Abuse: Drug Use Hx: No. Use in Last 12 Months: No. (Last Updated: 07/09/2019 22:50:30 EST by Margoth Ly, RN) Cardiovascular ASMT, ED Cardiovascular Assessment WDL : WDL with exceptions (Comment: HTN on arrival, BLE edema, Denies chest pain at this time [Heriberto Marie RN - 07/25/2019 5:46 EST] ) Heriberto Marie RN - 07/25/2019 5:46 EST Respiratory Respiratory Assessment WDL : WDL Heriberto Marie RN - 07/25/2019 5:46 EST Integumentary Assessment Skin Description : Normal for ethnicity Skin Temperature : Warm Integumentary Assessment WDL : WDL with exceptions Integumentary Assessment Comment : Bruising to BLE from a fall, sensation intact Heriberto Marie RN - 07/25/2019 5:46 EST Electronically signed by [facility] Conversion Mud Trucker Cerner at 11/13/2022 9:17 PM CDT documented in this encounter Plan of Treatment Not on file documented as of this encounter Visit Diagnoses Not on filedocumented in this encounter
--- OUTSIDE RECORDS SUMMARY | 2025-02-01 11:27 | XMS_ITS | Referral Summary ---
Author Organization [employer] ([place], [place], [place], [place]) Address [address] [place] [address] Care Team Providers Care Mail Caller Name Role Phone Unavailable Primary Care Provider [...]
--- OUTSIDE RECORDS SUMMARY | 2025-02-01 11:27 | XMS_ITS | Encounter Summary ---
Author Organization [employer] ([place], [place], [place], [place]) Address [address] [place] [address] Care Team Providers Care Factory Supervisor Name Role Phone Unavailable Primary Care Provider Unavailabl e Encounter Details Date Type Department Care Team (Late st Contact Info) Description 07/25/2019 Transcribed Document [facility] [place] Family Medicine [address] [place] [address] ProviderRadha MD [address] [place] [address] Social History Tobacco Use Types [...] - Historical ProviderMD - 07/25/2019 5:41 AM COMPLETIONS ENGINEER [place] Suicide Severity Rating Scale (C-SSRS) Entered On: 07/25/2019 5:48 EST Performed On: 07/25/2019 5:46 EST by Heriberto Marie RN [place] Suicide Severity Rating Scale (C-SSRS) CSSRS Past Month Wish to be : No CSSRS Past Month Suicidal Thoughts : No CSSRS Lifetime Suicide Behavior : No Suicide Severity Rating Score : 0 Suicide Severity Rating : No Additional Care Required at this time Heriberto Marie RN - 07/25/2019 5:46 EST documented in this encounter Plan of Treatment Not on file documented as of this encounter Visit Diagnoses Not on filedocumented in this encounter
--- OUTSIDE RECORDS SUMMARY | 2025-02-01 11:27 | XMS_ITS | Encounter Summary ---
Author Organization [employer] ([place], [place], [place], [place]) Address [address] [place] [address] Care Team Providers Care Boxing Inspector Name Role Phone Unavailable Primary Care Provider Unavailabl e Encounter Details Date Type Department Care Team (Late st Contact Info) Description 07/25/2019 Transcribed Document [facility] [place] [address] [place] [address] ProviderRadha MD [address] [place] [address] Social History Tobacco Use Types [...] Conversion Note - Historical ProviderMD - 07/25/2019 9:34 AM SUB ACUTE CARE NURSE ED Event Note Entered On: 07/25/2019 9:35 EST Performed On: 07/25/2019 9:34 EST by Radha Lowe RN ED Event Note ED Event Date/Time : 07/25/2019 8:10 EST ED Description of Event : Pt up for d/c at time of assuming care. Pt remains hypertensive and verbalizing concerns of right lower leg pain. Leg noted to be bruised from patella to lower ankle. c/o pain with ambulation. Attending for dayshift made aware of concerns, he will see her and await further orders. Radha Lowe RN - 07/25/2019 9:34 EST documented in this encounter Plan of Treatment Not on file documented as of this encounter Visit Diagnoses Not on filedocumented in this encounter
--- OUTSIDE RECORDS SUMMARY | 2025-02-01 11:27 | XMS_ITS | Encounter Summary ---
Author Organization [employer] ([place], [place], [place], [place]) Address [address] [place] [address] Care Team Providers Care Construction Site Manager Name Role Phone Unavailable Primary Care Provider Unavailabl e Encounter Details Date Type Department Care Team (Late st Contact Info) Description 07/25/2019 Transcribed Document [facility] [place] Medicine [address] [place] [address] ProviderRadha MD [address] [place] [address] Social History Tobacco Use Types Packs/Day Years Used Date Smoking Tobacco: Never Assessed Comments Unknown Sex and Gender Information Value Date Recorded Sex Assigned at Female 01/23/2022 8:37 PM CDT Legal Sex Female 8:37 PM CDT Gender Identity Female 01/23/2022 8:37 PM CDT Sexual Orientation Not on file documented as of this encounter Miscellaneous Notes * Cerner Conversion Note - Radha Claudio MD - 07/25/2019 6:06 AM 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 If you had special tests, such as EKG???s or X-rays, the interpretation of your tests given to you by the Emergency Department Physician is a preliminary report. Some fractures and illnesses fail to show up on preliminary tests. These will be reviewed again and we will call you if there are any new suggestions. If your symptoms continue notify your physician. After you leave, you should follow the instructions provided. What to do next Follow-Up Appointments Follow Up with Return to the emergency department if you develop any chest pain, shortness of breath or other acute new concerns. When Within As needed Follow Up with [facility] Integr[facility] Tracking When Within in AM Where: [address] [place] [phone]- Business (1) Allergies No Known Allergies No Known Medication Allergies Immunizations This Visit No Immunizations Found Medications What How Much When Instructions Next Dose The home medications listed are only as accurate as the information you provided. Please continue taking all of your medications prescribed by your Primary Care Provider unless specifically told to change or discontinue the medication. Please direct any questions regarding your home medications to your Primary Care Provider. Take your medications faithfully. Do NOT skip medication. Do NOT stop taking medications without the direction of a physician. Carry a list of your medications with you at all times, and take this medication list with you to your first follow up visit. Report any side effects. Avoid herbal remedies unless discussed with your physician. As part of your treatment plan, your physician may have prescribed a limited course of a controlled substance. This medication may be given to help people with moderate or severe pain or for other medical conditions, but there are risks involved with treatment. Common side effects may include nausea, constipation, drowsiness, sweating, itching, dry mouth, and rash. More serious side effects may include cognitive and motor impairment, like problems with thinking, concentrating, alertness, and movement (e.g. slowed reflexes), and driving and operating heavy machinery can be dangerous. It is important for you to talk to your physician if you have these side effects or questions. These controlled substances can produce physical dependence and be habit-forming if taken for an extended period of time, which means that the body has gotten used to them and may experience withdrawal symptoms if they are abruptly stopped. Withdrawal symptoms can include runny nose, sweating, goose bumps, diarrhea, abdominal cramping, rapid heartbeat, difficulty sleeping, and nervousness. Please dispose of unused and medications per pharmacy guidance. Test Results Laboratory or Other Results This Visit (last charted value for your 07/25/2019 visit) General Chemistry 07/25/2019 5:45 AM Glucose POC2: 116 mg/dL -- Normal range between ( 70 and 110 ) Device Comment 1: Device Comment 1 Education Materials Basics of Medicine Management What should I do when I am taking medicines? Read all of the labels and the inserts that come with your medicines. Review the information often. ??? Talk with your pharmacist if you notice a change in the size, color, or shape of your medicines. ??? Try to get all of your medicines at one pharmacy. The pharmacist will have all your information and will understand possible drug interactions. ??? Ask your health care provider any questions that you have about your prescribed medicines and any acnz-blv-edeffmv medicines, vitamins, and herbal or dietary supplements that you take. It is important to make sure that nothing will interact with any of your prescribed medicines. What should I know about my medicines? Know the potential side effects for each medicine that you take. ??? Know what each of your medicines looks like. This includes size, color, and shape. ? If you are getting confused and having trouble recognizing your different medicines, ask your health care provider or pharmacist about changing your medicines or helping you to identify them more easily. How can I take my medicines safely? Take medicines only as directed by your health care provider. ? Do not take more of your medicine than instructed. ? Do not take anyone else???s medicines. ? Do not share your medicines with other people. ? Do not stop taking your medicines unless you have talked about that with your health care provider. ? You may need to avoid alcohol or certain foods or liquids with one or more of your medicines. Follow your health care provider's instructions. ??? Do not split, mash, or chew your medicines unless your health care provider tells you to do so. Tell your health care provider if you have trouble swallowing your medicines. ??? For every liquid medicine, use the dosing container that was provided. How should I organized my medicines? Use a tool, such as a weekly pillbox, a written chart from your health care provider, a notebook, or your own calendar to organize your medicine schedule. ??? If you have trouble recognizing your different medicines, keep them in their original bottles. ??? Create reminders for taking your medicines. Use sticky notes, or use alarms on your watch, mobile device, or phone calendar. ??? Your organization system should help you to remember the following information about each medicine: ? Name of the medicine. ? Dosage. ? Schedule. This includes the day and time when it should be taken. ? Appearance. This includes color, shape, size, and stamp. ? How to take your medicines. You may need to take them with or without certain foods, on an empty stomach, with fluids, or by following some other instruction. ??? More advanced medicine management systems are also available. These offer weekly or monthly options that are complete with storage, alarms, and visual and audio prompts. ??? Review your medicine schedule with a family member, friend, or caregiver. Other household members should understand your medicines. ??? If you have trouble reading the names of your different medicines, ask your pharmacist to provide your medicines in containers with large print. ??? If you take any medicines on an ???as needed?? basis, such as medicines for nausea or pain, it is important that you remember what you have taken and when you did so. Write down the following information each time you take an as needed medicine: the name, the dosage, and the date and time that you took it. How should I plan ahead for travel? Take your pillbox, medicines, and organization system with you when you travel. ??? Have your medicines refilled before you leave for travel. This will ensure that you do not run out of your medicines while you are away from home. ??? Always carry an updated list of your medicines with you. If there is an emergency, a respondent can quickly see what medicines you are taking. How should I store and discard my medicines? Store medicines in a cool, dry area away from light or as directed by your pharmacist or health care provider. The bathroom is not a good place for medicine storage because of heat and humidity. ??? Store your medicines away from chemicals, medicines for your pet, and medicines of other household members. ??? Keep medicines where children cannot reach them. Do not leave them on counters or bedside tables. Store them in high cabinets or on high shelves. ??? Check expiration dates regularly. Do not take medicines. Discard medicines that are older than the expiration date. ??? Learn about the best way to dispose of each medicine that you take. Find out if your local government recycling program, hospital, or pharmacy has a medicine take-back program for safe disposal. If not, some medicines may be mixed with inedible substances and thrown away in the trash in a sealed bag or empty container. What should I remember? Tell your health care provider if you experience side effects, you have new symptoms, or you have other concerns. There may be dosing changes or alternative medicines that would be better for you. ??? Review your medicines regularly with your health care provider. Ask if you need to continue to take each medicine, and discuss how well each one is working. Medicines, diet, medical conditions, weight changes, and other habits can all affect how medicines work. ??? Refill your medicines early so that you do not risk running out. ??? In case of an accidental overdose, call your local Poison Control Center at or visit your local emergency department immediately. This is important. What should I know about giving medicines to my child? Use positive reinforcement to help your child take necessary medicines. Try singing, cuddling, and rewards. ??? Use only the syringes, droppers, dosing spoons, or dosing cups from your child???s health care provider or pharmacist. ??? Always wash your hands before giving medicines. ??? Learn about the medicine policies at your child's school. ? Meet with the school nurse to review your child's medicine schedule in detail. ? Do not send oral medicines to school with your child. ??? If your child has trouble taking medicine, forgets a dose, or spits it up, talk with his or her health care provider. ??? Do not give llwh-mma-lmmembb cough and cold medicines to your child who is younger than 2 years old, unless directed by his or her health care provider. ??? Do not give your child aspirin unless instructed to do so by your child's can coverer or lump room supervisor. ??? Make sure that your child knows how to use an inhaler properly, if needed. This information is not intended to replace advice given to you by your health care provider. Make sure you discuss any questions you have with your health care provider. Document Released: 10/30/2011 Document Revised: 03/27/2017 Document Reviewed: 03/17/2015 [employer] Patient Education ?? 2019 [employer] Emergency Awareness and Preventative Care STROKE is an EMERGENCY Every Minute Counts Act FAST and Check for these signs: FACE Does the face look uneven? ARM Does one arm drift down? SPEECH Does their speech sound strange? TIME Call at any sign of stroke Stroke Risk Factors Atrial Fibrillation (irregular heartbeat) Diabetes Family history of stroke Heart Disease Heavy alcohol use High Blood Pressure High Cholesterol Physical inactivity and obesity Smoking Cigarette Smoking The facts are clear, cigarette smoking will shorten your life. Smoking can cause many illnesses along the way. As a healthcare provider, we recommend that you stop smoking. Assistance with quitting is available by contacting 4-729-JRIENOW. This is a free resource providing counseling, support, and referral. Or you may contact your personal physician. [employer] Suicide Prevention Lifeline: The National Suicide Prevention Lifeline is a national network of local crisis centers that provides free and confidential emotional support to people in suicidal crisis or emotional distress 24 hours a day, 7 days a week. Don't Wait! Stop a Heart Attack Before it Starts What is a heart attack? A heart attack is damage or to a part of the heart from severely decreased or lack of blood flow to the heart. Over time, arteries can become narrow from the buildup of fat and cholesterol, which is called plaque. The plaque can rupture causing a blood clot to form. When the blood clot forms, the artery can become severely narrowed or completely blocked, causing a heart attack. Heart attack is the leading cause of in the [place]. 85% of muscle damage occurs within the first 2 hours. Delay in the recognition of heart attack symptoms increases the chances of . Know the early symptoms of a heart attack: Nausea Feeling of fullness in chest Jaw Pain Pain that travels down one or both arms Fatigue/being tired Anxiety Back Pain Chest pressure, squeezing, or discomfort Shortness of breath Sweating, or a cold sweat Feeling of impending doom There are unusual signs of a heart attack, too! Women, the elderly, and diabetics may present with atypical symptoms: Fainting/dizziness Weakness Confusion Risk Factors for a Heart Attack Some heart disease risk factors, such as age and family history, cannot be changed. Others, like smoking and lack of exercise, can be changed. Smoking High Cholesterol High Blood Pressure Family History Obesity Age Gender (Males are at higher risk) Lack of Exercise Diabetes Diet Stress Excessive Alcohol Intake If you or someone you know is experiencing the signs and symptoms of a heart attack, DON???T DELAY. Call immediately and seek help. If someone collapses, perform CPR! Do not attempt to drive if you are having symptoms of heart attack. Hands-Only CPR Why Hands-Only CPR? Hands-Only CPR has been shown to be as effective as conventional CPR for cardiac arrests that occur outside of a hospital. Survival depends on immediately receiving CPR from someone nearby. How do you perform Hands-Only CPR? There are two easy steps: Call if you see a teen or adult collapse Push hard and fast in the center of the chest at a beat of 100 beats per minute. Save a life! 4 WAYS TO GET AHEAD OF SEPSIS SEPSIS is a MEDICAL EMERGENCY. Time matters! Infections put you and your family at risk for a life-threatening condition called sepsis. Sepsis is the body's extreme response to an infection. It is life-threatening, and without timely treatment, sepsis can rapidly lead to tissue damage, organ failure, and . Sepsis happens when an infection you already have-in your skin, lungs, urinary tract or somewhere else-triggers a chain reaction throughout your body. 1 PREVENT INFECTIONS Take good care of chronic conditions. Talk to your doctor about getting the recommended vaccines. 2 PRACTICE GOOD HYGIENE Wash your hands frequently. Keep cuts or open sores clean and covered until they are healed. 3 KNOW THE SYMPTOMS Confusion or disorientation Shortness of breath High heart rate Fever, shivering, or feeling very cold Extreme pain or discomfort Clammy or sweaty skin 4 ACT FAST Get medical care IMMEDIATELY if you suspect sepsis or if you have an infection that is not getting better or is getting worse. To learn more about sepsis and how to prevent infections, visit www.cdc.gov/sepsis. The examination and treatment you have received in the Emergency Department has been done to provide an appropriate evaluation and stabilizing treatment on an emergency basis only. Given the limited resources, it is not meant to be a substitute for complete medical care. The follow-up doctor you named will receive a copy of your records and all test reports. IT IS IMPORTANT THAT YOU SCHEDULE A FOLLOW-UP APPOINTMENT AND ARE RE-EVALUATED. You should report any new complaints, symptoms, or remaining problems at that time. IT IS IMPOSSIBLE FOR THE EMERGENCY DEPARTMENT TO RECOGNIZE AND TREAT ALL ELEMENTS OF INJURY OR ILLNESS IN A SINGLE VISIT. If you have been referred to a specialist physician, it means that we believe you may have a condition that requires the expertise of a specialist. These physicians work in partnership with the hospital and have agreed to see referred patients in their office for further evaluation. KEEP IN MIND THAT THE SPECIALIST HAS HIS/HER OWN OFFICE POLICIES WHICH MAY REQUIRE PROPER INSURANCE OR PAYMENT UP FRONT BEFORE THE SPECIALIST WILL SEE YOU. It is your responsibility to call the specialist physician to make an appointment. We do not have the ability to refer patients to specialists/physicians that work with specific insurance companies. Please be advised that all financial charges or billing practices are determined by that practice, not the hospital. If your insurance company requires that you see a specialist from their approved list, it is your responsibility to contact your insurance company to make those arrangements. It is also your responsibility to follow any other requirements of your insurance company necessary to obtain coverage for claims submitted. We will bill your insurance; however, you are responsible today for any co-pay amounts. You will receive a separate bill for any services you may have received including: emergency, radiology, or pathology physicians. Patient Name:DIVYA SCHWAB I have received this information and was given the opportunity to ask questions. Patient/Paint Dipper Name: Patient/Paint Dipper Signature: Relationship to Patient: Clinician/Hospital Paint Dipper Signature: Please Provide a Telephone Number Where You Can Be Reached: Is it Permissible To Leave a Message? Date: documented in this encounter Plan of Treatment Not on file documented as of this encounter Visit Diagnoses Not on filedocumented in this encounter
--- OUTSIDE RECORDS SUMMARY | 2025-02-01 11:27 | XMS_ITS | Encounter Summary ---
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
--- OUTSIDE RECORDS SUMMARY | 2025-02-01 11:27 | XMS_ITS | Encounter Summary ---
Author Organization [place] [address] Care Team Providers Care Biochemist Name Role Phone Jovi Carter Ud, MD Unavailable [phone] Roger Talley MD Unavailable Noreen Ortega DO Primary Care Provider + [phone] Reason for Visit * Reason Onset Date Comments CM- Telephonic Outreach 01/22/2025 Hospital Follow Up 01/22/2025 Encounter Details Date Type Department Care Team (Late st Contact Info) Description 01/22/2025 Patient Outreach SEP Care Managment [address] [place] [address] Shahana Lew, RN CM- Telephonic Outreach; Hospital Follow Up Social History Tobacco Use Types Packs/Day Years Used Date Smoking Tobacco: Former Cigarettes 0.2 37.3 0 04/05/1985 - 07/29/2022 Smokeless Tobacco: Never Alcohol Use Standard Drinks/Week Comments Never 0 (1 standard drink = 0.6 oz pur e alcohol) [facility] Utilities Answer Date Recorded In the past 12 months has [employer], gas, oil, or [employer] threatened to shut off services in your [...] Date Recorded PHQ-2 Total Score 0 01/16/2025 [facility] - Occupational Stress Questionnaire Answer Date Recorded [...] money to get more. Never true [facility]20[facility] Transportation Answer D ate Recorded [...] Progress Notes * Shahana Lew RN - 01/22/2025 12:24 PM EDT Patient Outreach Second attempt to contact patient regarding hospital follow up contact. Outcome: Unable to reach patient by phone Voicemail box is full/not set up Patient can return call to Shahana Lew [phone] documented in this encounter Plan of Treatment Upcoming Encounters Date Type Department Care Team (Late st Contact Info) Description 02/09/2025 1:15 PM EDT Office Visit [facility] Neph[place] [address] [facility] [address] [place] [address] Deborah Li MD [address] [facility] [address] [place] [address] documented as of this encounter [...] on filedocumented in this encounter Care Teams Biochemist Relationship Specialty Start Date End Date Noreen Ortega DO [address] [place] [address] PCP - General Family Medicine 10/30/24 Jovi Carter Ud, MD [address] [place], [place] [id number] Internal Medicine-Nephrology 04/11/21 Roger Talley MD [address] [facility] [address] [place] [id number] Physician Internal Medicine-Nephrology 05/01/21 documented as of this encounter
--- OUTSIDE RECORDS SUMMARY | 2025-02-01 11:27 | XMS_ITS | Encounter Summary ---
Author Organization [employer] ([place], [place], [place], [place]) Address [address] [place] [address] Care Team Providers Care Rn Unit Manager Name Role Phone Unavailable Primary Care Provider Unavailabl e Encounter Details Date Type Department Care Team (Late st Contact Info) Description 07/25/2019 Transcribed Document [facility] Family Medicine [facility] [place] [address] ProviderRadha MD [facility] [place] [address] Social History Tobacco Use Types [...] Note - Radha Claudio MD - 07/25/2019 5:47 AM CHEMISTRY INTERN Patient: DIVYA SCHWAB Age: 54 years Sex: Female : 1965 Associated Diagnoses: Inneffective medication administration routine at home; Medication management Author: TRISTA WESTON MD Basic Information Time seen: Date & time 07/25/2019 05:47:00. History source: Patient, EMS. Arrival mode: Ambulance. History limitation: None. Additional information: Chief Complaint from Nursing Triage Note : Chief Complaint 07/25/2019 5:42 EST Chief Complaint pt arrives to ed via ems with c/o BLE edema and bruising. Been out of medications x 1 wk due to not being able to afford them. hx of CHF, renal failure, DM. FSBS 116. . History of Present Illness This is a 54-year-old female with a past medical history significant for CHF, hypertension, renal failure, diabetes who presents to the emergency department for assistance with medications. She states that she has been out of her medications over the last week because she has been unable to get the money to have the refills. She states that she has the prescriptions, but simply has not been able to take medications. She has not been able to check her fingerstick either, but it is only 116 here. She is completely asymptomatic with no chest pain, shortness of breath, fevers. She has no urinary symptoms. She has some bruising on her right calf where she tripped and fell at the [facility]. She complains of pain here. She has swelling in bilateral lower extremities and this is largely chronic. No new pain in the calf. She has several admissions and visits to [facility] over the last several months, with documentation of noncompliance on those notes as well. Patient has not tried consulting with the [facility] clinic concerning medication administration and refill. Review of Systems Additional review of systems information: 10 point review of systems reviewed and negative except as stated in history of present illness . Health Status Allergies: Allergic Reactions (Selected) No Known Allergies No Known Medication Allergies. Medications: (Selected) Inpatient Medications Ordered Core mg, Oral, 1-Time bumetanide: 1 mg, Oral, 1-Time hydrALAZINE: 50 mg, Oral, 1-Time Prescriptions Prescribed Coreg 25 mg oral tablet: 1 Tab, Oral, BID, 60 Tab, 0 Refill(s) Effervescent Potassium 25 mEq oral tablet, effervescent: See Instructions, take one packet daily when you take bumex., 20 Each, 0 Refill(s) Lipitor 20 mg oral tablet: 2 Tab, Oral, At Bedtime, 60 Tab, 0 Refill(s) aspirin 81 mg oral delayed release tablet: 1 Tab, Oral, Daily, 30 Tab, 0 Refill(s) bumetanide 1 mg oral tablet: 2 Tab, Oral, Daily, for 30 Day(s), 60 Tab, 0 Refill(s) cholecalciferol 1000 units oral capsule: 2 Cap, Oral, Daily, 60 Cap, 0 Refill(s) hydrALAZINE 50 mg oral tablet: 1 Tab, Oral, TID, 90 Tab, 0 Refill(s) isosorbide mononitrate 60 mg oral tablet, extended release: 1 Tab, Oral, QAM, for 30 Day(s), 30 Tab, 0 Refill(s), per nurse's notes. Immunizations: Per nurse's notes. Past Medical/ Family/ Social History Medical history Reviewed as documented in chart. Surgical history: Reviewed as documented in chart. Family history: Reviewed as documented in chart. Social history: Reviewed as documented in chart. Problem list: Active Problems (8) Acute renal failure (ARF) At risk for sleep apnea Diabetes Heart failure History of obstructive sleep apnea HTN (hypertension) Kidney failure Volume overload , per nurse's notes. Physical Examination Vital Signs Vital Signs/Vital Measures 07/25/2019 5:42 EST Systolic Blood Pressure 230 mmHg HI Diastolic Blood Pressure 126 mmHg HI Temperature Source Oral Temperature Mode Fahrenheit Temperature, Fahrenheit 97.7 Deg F Clinical Temperature, C 36.5 Deg C Peripheral Pulse Rate 103 bpm HI Respiratory Rate 18 Breaths/Min Oxygen Saturation 95 % Oxygen Therapy Mode Room air . Per nurse's notes. General: Alert, no acute distress. Skin: Warm, dry. Head: Normocephalic. Neck: Supple. Ears, nose, mouth and throat: Oral mucosa moist. Cardiovascular: Regular rate and rhythm. Respiratory: Lungs are clear to auscultation, respirations are non-labored, breath sounds are equal. Gastrointestinal: Soft, Nontender, Non distended. Musculoskeletal: BLE: Motor and sensory intact distally. Capillary refill less than 2 seconds. Right lower leg with bruising, but no calf tenderness. 3+ pitting edema bilateral lower extremities. No unilateral swelling or tenderness.. Neurological: Alert and oriented to person, place, time, and situation, normal speech observed, normal coordination observed. Psychiatric: Cooperative. Medical Decision Making Documents reviewed: Emergency department nurses' notes, prior records. Notes: Patient here essentially for medication administration. She does not need a refill, but does need assistance with getting her medications. We will place a lavatory attendant consult. She is hypertensive but aysmptomatic and with some lower extremity edema, but this is chronic for her and she is historically noncompliant. Given her blood pressure and diuretic medications here. She is currently staying at the [facility] and they do have a clinic which should be able to help her with the pain in her medications as well and I suggested that she follow-up with them today upon return. Advised return to the emergency department for any chest pain, shortness of breath or other acute new concerns.. Impression and Plan Diagnosis Inneffective medication administration routine at home - Discharge, Medical Medication management - Discharge, Medical Plan Condition: Stable. Disposition: Discharged Admit/Transfer/Discharge: Discharge (Order): Start: 07/25/2019 6:02 EST, Discharge to: Home. Patient was given the following educational materials: Basics of Medicine Management. [facility]; Return to the emergency department if you develop any chest pain, shortness of breath or other acute new concerns. Within As needed. Counseled: Patient, Regarding diagnosis, Regarding diagnostic results, Regarding treatment plan, Patient indicated understanding of instructions. documented in this encounter Plan of Treatment Not on file documented as of this encounter Visit Diagnoses Not on filedocumented in this encounter
--- OUTSIDE RECORDS SUMMARY | 2025-02-01 11:27 | XMS_ITS | Encounter Summary ---
Author Organization [employer] ([place], [place], [place], [place]) Address [address] [place] [address] Care Team Providers Care Financial Services Professional Name Role Phone Unavailable Primary Care Provider Unavailabl e Encounter Details Date Type Department Care Team (Late st Contact Info) Description 07/25/2019 Transcribed Document [facility] Family Medicine [address] [place] [address] ProviderRadha MD [address] [place] [address] Social History Tobacco Use Types [...] Conversion Note - Historical ProviderMD - 07/25/2019 9:35 AM PLSQL DEVELOPER ED Event Note Entered On: 07/25/2019 9:36 EST Performed On: 07/25/2019 9:35 EST by Radha Lowe RN ED Event Note ED Event Date/Time : 07/25/2019 9:35 EST ED Description of Event : Okay to d/c per attending (Dr. Alba). Pt given d/c instructions, bus pass and reinforced importance of taking current medications. Pt verbalizes understanding. Pt taken to ER lobby via wheelchair. Radha Lowe RN - 07/25/2019 9:35 EST Electronically signed by [facility] Conversion Student Teaching Coordinator Cerner at 11/13/2022 9:25 PM CDT documented in this encounter Plan of Treatment Not on file documented as of this encounter Visit Diagnoses Not on filedocumented in this encounter
[2025-02-01 11:30] VITALS: BP 221/120; PULSE 96; O2SAT 93
[2025-02-01 11:31] LABS: Microscopic, Urine URINE MICROSCOPIC (MICROSCOPIC)
[2025-02-01 11:31] LABS: NT Pro Brain Natriuretic Pep. 28500 pg/mL (0-125); Troponin I 0.04 ng/ml (0.00-0.034)
[2025-02-01 11:33] LABS: Bilirubin,Urine Negative (Negative); Color,Urine YELLOW (Yellow); Glucose,Urine (UA) Negative (Negative); Ketones,Urine Negative (Negative); Leukocyte Esterase,Urine Negative (Negative); PH,Urine 7.0 (5.0-8.5); Protein,Urine 3+ (Negative); Specific Gravity, Urine 1.020 (1.005-1.030); Urobilinogen,Urine 0.2 EU/dl (0.2)
[2025-02-01] MEDS: FUROSEMIDE 100MG/10ML VIAL 80 MG IV (11:46)
[2025-02-01 11:55] VITALS: BP 216/111; PULSE 94; O2SAT 95
[2025-02-01 12:00] VITALS: BP 198/106; PULSE 93; O2SAT 94
--- NOTE | 2025-02-01 12:14 | PC.NURSE ---
calling [facility] at this time.
--- NOTE | 2025-02-01 12:39 | PC.NURSE ---
[facility] called and is speaking with GALILEO Copeland at this time
--- NOTE | 2025-02-01 13:17 | PC.NURSE ---
Rolando EMT-P notified of transfer to [facility] room 114. Pt to go via ALS d/t need for pulp tester d/t afib rvr
[2025-02-01 13:37] VITALS: BP 208/125; PULSE 103; RESP 20; TEMP 36.9; O2SAT 94
== END 2025-02-01 13:39 | disposition short-term general hospital (02) ==
PROVIDERS: Physician Assistant; Emergency Provider Emergency Medicine
DX: J96.21 Acute and chronic respiratory failure with hypoxia (principal); I16.1 Hypertensive emergency; J90 Pleural effusion, not elsewhere classified; N18.6 End stage renal disease; I48.91 Unspecified atrial fibrillation; I12.0 Hypertensive chronic kidney disease with stage 5 chronic kidney disease or end stage renal disease; J44.9 Chronic obstructive pulmonary disease, unspecified; Z99.2 Dependence on renal dialysis; Z99.81 Dependence on supplemental oxygen; Z87.891 Personal history of nicotine dependence
CPT/HCPCS: 71046; 80053; 81001; 82803; 83735; 83880; 84100; 84484; 85025; 85610; 93005; 96374; 99291; J1938